=== PATIENT | male | born 1975 | race Caucasian/White ===

== ENCOUNTER 2024-01-07 00:40 | Emergency (ER) | payer OTHER, SELFPAY ==
[2024-01-07] VITALS (10 sets, daily range): BP systolic 184–268; BP diastolic 88–141; BMI 49.4
[2024-01-07] MEDS: ATIVAN 2 MG IV (00:54)
[2024-01-07 00:57] LABS: Glucose - Point of Care 117 mg/dl (70-99)
[2024-01-07 01:01] LABS: % Basophils 0.5 % (0-2); % Eosinophils 0.1 % (0-6); % Immature Granulocytes 0.4 % (0-0.5); % Lymphocytes 6.2 % (20.5-51.1); % Neutrophils 90.8 % (42.2-75.2); Absolute Basophils 0.1 10^3/uL (0-0.2); Absolute Immature Granulocytes 0.1 10^3/uL (0-0.05); Absolute Monocytes 0.3 10^3/uL (0.1-0.6); Absolute Neutrophils 13.9 10^3/uL (1.4-6.5); Hematocrit 44.2 % (39.0-52.0); Hemoglobin 14.9 g/dL (13.0-18.0); Mean Corp Hgb Conc. 33.7 g/dL (33.0-37.0); Mean Corpuscular Hgb 26.5 pg (27.0-31.0); Mean Corpuscular Volume 78.6 fL (80.0-94.0); Nucleated Red Blood Cells % 0 % (-); Platelet Count 379 10^3/uL (130-400); Red Blood Cell Count 5.62 10^6/uL (4.70-6.10); Red Cell Dist. Width 14.7 % (11.5-14.5); White Blood Cell Count 15.3 10^3/uL (4.8-10.8)
[2024-01-07 01:15] LABS: INR 1.05; PT 13.5 Sec (11.4-14.6)
[2024-01-07 01:16] LABS: APTT 43.1 Sec (23.4-35.0)
[2024-01-07 01:17] LABS: ALT (SGPT) 18 U/L (0-50); AST (SGOT) 24 U/L (17-59); Albumin 4.6 g/dl (3.5-5.0); Alkaline Phosphatase 127 U/L (38-126); Blood Urea Nitrogen 14 mg/dl (9-20); Calcium 9.7 mg/dl (8.4-10.2); Carbon Dioxide 30 mmol/L (22-30); Chloride 98 mmol/L (98-107); Estimated Creatinine Clearance > 125 ml/min; Glucose 127 mg/dl (70-99); Potassium 4.1 mmol/L (3.5-5.1); Sodium 135 mmol/L (135-145); Total Bilirubin 0.6 mg/dl (0.2-1.3); eGFR > 60.00
[2024-01-07 01:19] LABS: Alcohol None Detected
--- NOTE | 2024-01-07 01:24 | EDRN ---
Dr. Aguila at stretcher side with patient. 20 mg of etomidate given IVP and 10 mg of vecuronium given IVP. Resp bagging patient at this time.
--- NOTE | 2024-01-07 01:25 | EDRN ---
The patient remains SR on the monitor. The patient was intubated with an 8.0 ET tube at 26 at the lip.
[2024-01-07 01:29] LABS: Troponin I 0.012 ng/ml
--- NOTE | 2024-01-07 01:32 | ED.CVA ---
History of Present Illness
General
Chief Complaint: CVA/TIA Symptoms
Source: patient, spouse (Via telephone) and ambulance crew
Time Seen by Provider: 01/07/24 01:00
Onset of Stroke Symptoms
Onset of symptoms known: Yes
Date of onset of symptoms: 01/06/24
Time of onset of symptoms: 23:30
Date last time pt seen normal: 01/06/24
Time last time pt seen normal: 23:30
Travel History
Have you had any contact with someone who has COVID-19?: Unable to Answer
Do you have any symptoms of coronavirus? Fever > 100 degrees, chills, cough, shortness of breath, sore throat, loss of taste or smell, muscle aches, or headache?: Unable to Answer
History of Present Illness
History of Present Illness:
48-year-old male presents with altered mental status. Prehospital stroke alert from EMS. Unsure if there was trauma involved. He was last seen normal 90 minutes prior to arrival. Patient unable to follow commands. Initial exam showed a downward
right conjugate gaze. Patient was covered in vomitus. He was unable to speak. History is limited due to patient's condition.
Vital signs are stable. Patient not hypoxic
Nursing note reviewed. I agree with nursing documentation up to this point in time.
Home Meds and allergies reviewed.
NUMBER AND COMPLEXITY OF PROBLEMS ADDRESSED AT THE ENCOUNTER
� Chronic conditions affecting care:
� Acute Exacerbation and/or Progression of Chronic Illness:
� Differential Diagnosis includes:
AMOUNT AND/OR COMPLEXITY OF DATA TO BE REVIEWED AND ANALYZED
I performed an independent evaluation of the following and my interpretation is:
EKG: Sinus rhythm rate of [address] and T wave abnormalities. ST depressions in the inferior and lateral leads.
CT:
X-rays:
Ultrasound:
Laboratory Studies: 15.3 white blood cell count
Other:
Review of other/old records: Previous hospital admission 01/06/2022 including discharge summary and medical consultations.
Clinical information was obtained by an independent historian: who is not present at the bedside, but consulted by phone. She states that he has been noncompliant with his hypertensive medications for weeks.
Prescriptions/Medications Considered but not given:
Further testing considered but not performed:
RISK OF COMPLICATIONS AND/OR MORBIDITY OR MORTALITY OF PATIENT MANAGEMENT
Social determinants of health affecting care: Medical noncompliance
Discussion with other providers: Neurosurgery at [facility] [address] neuro ICU
Escalation of care including admission/observation vs risk of discharge considered: Patient intubated and blood pressure is lowered for permissive hypertension
CRITICAL CARE NOTE:
Critical care statement: A total of 55 minutes of critical care time was provided for this patient. This time is separate from time utilized to perform the aforementioned documented procedures. Aggregate critical care time includes only time
during which I was engaged in work directly related to the patient's care, as described above, whether at the bedside or elsewhere in the Emergency Department.
Total Time (exclusive of procedures):55
Update:
Past History
Past History
ED Past Medical History: Other (Chronic back pain, prior substance abuse/opiates as well as methamphetamine, facial cellulitis) and Other (Methadone maintenance)
ED Past Surgical History: Orthopedic (Arthroscopy right knee)
Social History
Tobacco: Smoker
Alcohol: Occasional
Drug: Former user (Opiates as well as methamphetamines)
Personal:
Living: with family
Employment: Employed
Family History
Family History: Other (Noncontributory)
Phy Exam
General Physical Exam
General Presentation: severe distress
General age: appears older than age
General Skin: flushed
General Habitus: debilitated, obese and poor hygiene
General Chronic Disability: other (Chronic lymphedema in the legs)
Eye Exam
Eye Exam: other (Downward conjugate gaze)
Able to obtain acuity?: No
Pupil Exam: Bilateral: pinpoint
Cardiovascular Exam
Cardiovascular Exam: regular rate/rhythm and tachycardia
Pulmonary Exam
Pulmonary Exam: generalized wheezing
Neurological Exam
Neurological Exam: non verbal
NIH Stroke Score
Level of Consciousness: 3 - Totally unresponsive
Mental
Mental Status: unresponsive
Describe Speech: no response
Cranial
Cranial Nerves: intact gag reflex
Musculoskeletal Exam
Musculoskeletal Exam: edema and neuro vasc intact
Skin Exam
Skin Exam: mottled, redness and warmth
Course
Orders/Labs/Results
Orders:
Orders
01/07/24 00:44
Electrocardiogram (*1) Urgent
Reason for Study: Other
Other Reason for Exam: Possible Stroke
CT Head W/o Cont STROKE ALERT Stat
Reason For Exam: pre hospital stroke alert
Bedside Glucose- Treatment ONCE
Cardiac Monitoring- Treatment ONCE
EKG- Treatment ONCE
IV Insert/Care/Rem.- Treatment PRN
Vital Signs As Directed
Frequency: Other
Weight As Directed
Frequency: Once
Comment: ZERO STRETCHER SCALE FOR ACCURATE WEIGHT
O2 Therapy [RESP] Urgent
Titrate/Wean O2 to maintain O2 sat greater than (%): 93
Special Instructions: MAINTAIN CONTINUOUS O2 SATS > OR = 93%
01/07/24 00:52
Lorazepam [Ativan] 2 mg .ROUTE .STK-MED ONE
Lorazepam [Ativan] 2 mg IV NOW STA
01/07/24 00:54
Alcohol Urgent
Complete Blood Count/With Diff Urgent
Comprehensive Metabolic Panel Urgent
PTT Urgent
Prothrombin Time Urgent
Troponin I Urgent
01/07/24 00:56
Add On- LAB Urgent
Tests Added?: alcohol
01/07/24 01:09
Labetalol HCl [Trandate] 20 mg IV [id number] PRN
01/07/24 01:11
Type+Screen Urgent
01/07/24 01:30
Portable Chest Xray [CR Chest Portable - 1 View] Stat
Comment:
Reason For Exam: post intubation.
Reason Study Needs to be Portable: Patient Unstable
01/07/24 01:36
Labetalol HCl [Trandate] 400 mg Empty Viaflex Container 100 ml [Viaflex Empty Container] 0 ml IV NOW
Initial dose in mg/min, then titrate:: 2
Titrate to keep:: Other
Titrate to keep other:: BP < 185/110
Titrate by mg/min:: 0.5 mg/min
Frequency of titrations (minutes):: 15
Additional Titration Instructions:: Bolus with 20 mg IV every 15 minutes PRN dose increase
Maximum dose in mg/min:: 4
Begin to taper infusion when:: Remained at goal for 4hrs
Taper by mg/min:: 0.5 - 1 mg/min
Frequency of taper (minutes) if patient maintains goal:: 30
Taper to off?: Yes
If infusion off & no longer maintaining goal:: Contact Provider
Abnormal Lab Results
01/07/24 01/07/24
00:54 00:55
WBC 15.3 H 10^3/uL
(4.8-10.8)
MCV 78.6 L fL
(80.0-94.0)
MCH 26.5 L pg
(27.0-31.0)
RDW 14.7 H %
(11.5-14.5)
Abs Immat Gran (auto) 0.1 H 10^3/uL
(0-0.05)
Absolute Neuts (auto) 13.9 H 10^3/uL
(1.4-6.5)
Absolute Lymphs (auto) 1.0 L 10^3/uL
(1.2-3.4)
Neutrophils % 90.8 H %
(42.2-75.2)
Lymphocytes % 6.2 L %
(20.5-51.1)
APTT 43.1 H Sec
(23.4-35.0)
Glucose 127 H mg/dl
(70-99)
Alkaline Phosphatase 127 H U/L
(38-126)
Total Protein 9.0 H g/dl
(6.3-8.2)
POC Glucose 117 H mg/dl
(70-99)
01/07/24 00:54
01/07/24 00:54
Vital Signs
Initial and Last Documented VS:
Initial Vital Signs
BP
205/126
01/07/24 01:04
Last Documented Vital Signs
Temp Pulse Resp BP Pulse Ox
97.9 F 86 19 184/112 99
01/07/24 01:05 01/07/24 02:00 01/07/24 02:00 01/07/24 01:55 01/07/24 01:55
Procedures
Intubations
Procedure completed by: Myself
Method of Intubation: glidescope
Tube size (cm): 8.0
Placement confirmed by: auscutation, capnography and placement corrected (Pulled back 1 mm)
Breath sounds after intubation: equal
Intubation complications: no complications
*Radiology
Radiology exam reviewed: radiology read reviewed
*Pulse Oximetry
Patient hypoxic: no
*Critical Care Note
Total Time (30-74mins, 75-104mins- exclusive of procedures): 55
Patient Management
Social determinants of health affecting care: Living situation
Discussion with other providers: Sports Athletic Trainer (Neurosurgery at [facility] [address]) and Other
ED Attending Note
-
Portions of this chart may have been created with voice recognition software.� Occasional wrong word or��sound alike� substitutions may have occurred due to the inherent limitations of voice recognition software.
Discharge Plan
Departure
Patient Disposition: Acute Care Hospital
Date of Disposition: 01/07/24
Time of Disposition: 01:44
Condition: Critical
Discharge Problem:
Left thalamic bleed, Hypertension, Midline shift of brain due to hematoma
Prescriptions:
No Action
methadone [Methadose] 100 MG/10 ML concentrate
130 mg PO DAILY
Patient Comments:
01/06/22 CONFIRMED WITH [facility] AT [phone] [facility]
ascorbic acid (vitamin C) [Vitamin C] 500 MG tablet
500 mg PO DAILY
multivitamin with folic acid [Tab-A-Cecilia] 1 TABLET tablet
1 tab PO DAILY
Vitamin A
1 cap PO DAILY
losartan 50 MG tablet
50 mg PO DAILY Qty: 30 0RF
acetaminophen 325 MG tablet
650 mg PO Q4HPRN PRN (Reason: mild pain or temp > 100.4 F) 0RF
carvedilol 12.5 MG tablet
25 mg PO BID Qty: 60 0RF
miconazole nitrate [Miconazorb AF] 1 APPLIC powder
1 applic topical BID Qty: 1 0RF
Dakin's Solution 473 ML solution
1 applic topical DAILY Qty: 1 0RF
white petrolatum [Hydrophor] 1 APPLIC ointment
1 applic topical DAILY Qty: 1 0RF
cephalexin 500 MG capsule
1,000 mg PO QID Qty: 112 0RF
Rx Instructions:
take 2 tabs (1000mg) 4x daily x 2 weeks
Referrals:
UNKNOWN - PT NOT,INTERVIEWE [Family Provider] -
Hospital Transfer
Other hospital: [facility] neuro ICU
I certify that the patient requires transfer: Yes
Discussed case with accepting physician: Dr. Arin Stokes, Dr. Huynh
Reason for transfer: higher level of care, medical necessity and availability of service
Interventions
Interventions:
*Risk Screen - Suicide Last Done: 01/07/24 01:09
*General Assessment Last Done: 01/07/24 00:48
*Neglect/Abuse Screening Last Done: 01/07/24 01:03
ED- Fall Risk Assessment Last Done: 01/07/24 01:13
*ED COVID-19 Vaccine History Last Done: 01/07/24 00:48
*Nursing Disposition Last Done: 01/07/24 02:27
ED- Pulmonary Assessment Last Done: 01/07/24 01:13
ED- Neurological Assessment Last Done: 01/07/24 01:13
ED- Cardiac Assessment Last Done: 01/07/24 01:13
ED Swallowing Screen Last Done: 01/07/24 01:07
Discharge Date and Time
Discharge Date/Time: 01/07/24 02:29
Print Language: TUVALUAN
[2024-01-07] MEDS: TRANDATE 20 MG IV (01:36)
[2024-01-07] MEDS: TRANDATE 80 MG IV (01:45)
== END 2024-01-07 02:29 | disposition short-term general hospital (02) ==
LOC: EMR 00:40
PROVIDERS: EMERGENCY PHYSICIAN Student in an Organized Health Care Education/Training Program
DX: S06.37AA Contusion, laceration, and hemorrhage of cerebellum with loss of consciousness status unknown, initial encounter (principal); G93.89 Other specified disorders of brain; X58.XXXA Exposure to other specified factors, initial encounter; I10 Essential (primary) hypertension; I89.0 Lymphedema, not elsewhere classified; G89.29 Other chronic pain; M54.9 Dorsalgia, unspecified; F19.10 Other psychoactive substance abuse, uncomplicated; Z91.148 Patient's other noncompliance with medication regimen for other reason; E66.9 Obesity, unspecified; F17.200 Nicotine dependence, unspecified, uncomplicated
CPT/HCPCS: 99285; 31500; 96365; 96375; 70450; 71045; 80053; 82077; 82962; 84484; 85025; 85610; 85730; 86850; 86900; 86901; 93005

== ENCOUNTER 2025-02-20 18:12 | Inpatient (IN) | payer OTHER, SELFPAY ==
[2025-02-20] VITALS (10 sets, daily range): BP systolic 147–214; BP diastolic 81–110; BMI 40.5; BMI 39.0
--- NOTE | 2025-02-20 14:33 | EDRN ---
pt was triage by Nash Alfred
--- NOTE | 2025-02-20 15:32 | ED.GENMED ---
History of Present Illness
General
Chief Complaint: Withdrawal Symptoms
Source: patient
Exam Limitations: clinical condition
Time Seen by Provider: 02/20/25 15:19
History of Present Illness
History of Present Illness:
50-year-old male presents with as he describes an heroin withdrawal. He stopped using yesterday. Snorts heroin daily. Uses a bag. Decided to stop yesterday. Describing symptoms of diarrhea, nausea vomiting incontinence agitation. Denies any
other acute symptoms. Patient states he took 2 strips of Suboxone this morning with symptoms worse after that.
Past History
Past History
ED Past Medical History: CVA (Thalamic bleed), Other (Chronic back pain, prior substance abuse/opiates as well as methamphetamine, facial cellulitis) and Other (Methadone maintenance)
ED Past Surgical History: Orthopedic (Arthroscopy right knee) and Other (Intracerebral shunt)
Social History
Tobacco: Smoker
Alcohol: Occasional
Drug: Former user (Opiates as well as methamphetamines)
Personal:
Living: with family
Employment: Employed
Family History
Family History: Other (Noncontributory)
Review of Systems
Review of Systems
All Other Systems: Not applicable
Respiratory: Reports no symptoms
Cardiac: Reports no symptoms
Phy Exam
Physical Exam
Physical Exam:
GENERAL: Chronically ill-appearing. Old for stated age. Mildly lethargic but answering questions. Malodorous.
EYE: Orbits normal.
NECK: Supple, no significant adenopathy.
ENT: Pharynx without erythema
CARDIAC: Regular rate and rhythm without any obvious murmurs.
LUNGS: Clear breath sounds,normal
ABDOMEN: Soft, without focal tenderness or distention
NEUROLOGICAL: Alert and oriented , somewhat slow to answer questions. Mild weakness to the right arm. Slight right facial droop. significant weakness of the right leg. This apparently is old.
SKIN: Warm and dry
MUSCULOSKELETAL: Significant bilateral lower extremity edema with chronic keratosis and hyperpigmentation changes
PSYCH: Normal and appropriate interaction.
Course
Orders/Labs/Results
Orders:
Orders
02/20/25 Breakfast
Cholesterol Lowering
At Your Request: Full Participation
Cholesterol Lowering: Sodium, 2 Gram
02/20/25 15:28
CT Head W/o Iv Contrast Urgent
Comment:
Reason For Exam: Change in mental status/history of inferior cerebr
Cardiac Monitoring- Treatment ONCE
IV Insert/Care/Rem.- Treatment PRN
Urinalysis Reflex To Culture Urgent
Urine Drug Abuse Screen Urgent
0.9% Sodium Chloride 500 ml [Nss] 500 ml IV BOLUS
Pulse Ox/cont/shift [RESP] Stat
Quantity: 1
02/20/25 15:29
Electrocardiogram (*1) Stat
Reason for Study: Other
Other Reason for Exam: overdose
EKG- Treatment ONCE
02/20/25 15:54
Acetaminophen Urgent
Alcohol Urgent
Complete Blood Count/With Diff Urgent
Comprehensive Metabolic Panel Urgent
Magnesium Urgent
02/20/25 16:44
Clonidine [Catapres] 0.2 mg PO NOW STA
02/20/25 16:46
Add On- LAB Urgent
Tests Added?: magnesium
02/20/25 17:44
Admit/Transfer Patient As Directed
Co-Sign Provider:
Level of Care: Inpatient admission
Assign to:: Telemetry
Physician / Group: [email or web address]
Diagnosis: opoid withdrawal
Reason for Telemetry: Other
Other Reason for Telemetry: opoid withdrawl
Date to Stop Telemetry: 02/22/25
Time to Stop Telemetry: 11:00
Reason for Hospitalization: opoid withdrawal
Expected length of stay greater than two midnights?: Yes
ELOS- Estimated Length of Stay in days: 3
I certify the patient meets the requirements for IP care: Yes
PRN Pain Medication Management As Directed
May give lesser potent ordered pain med per pt: Yes
preference::
Protocol:: Medication orders for pain may be administered in a
manner that supports deferring to patient preference
when the pt is:
- Requesting an ordered lesser potent pain medication.
Least to most potent pain medications are defined
as: acetaminophen < NSAID < tramadol < opioids
(morphine, oxycodone, hydromorphone).
- Requesting a lesser dose of the same medication IF
ORDERED.
- Requesting a less intrusive route of administration
if both routes are prescribed by the provider (PO <
IV).
02/20/25 17:45
Code Status As Directed
Resuscitation Status: Full Code
02/20/25 19:24
0.9% Sodium Chloride 1000 ml [Nss] 1,000 ml IV 120 mls/hr
Bisacodyl [Dulcolax] 10 mg RECTAL [id number] PRN
Buprenorphine [Subutex] 8 mg SL PRN PRN
Diphenoxylate / Atropine [Lomotil] 1 tablet PO Q4HPRN PRN
Docusate W/Senna [Senokot-S] 1 tablet PO BIDPRN PRN
Enoxaparin Sodium [Lovenox] 40 mg SC QPM
HydrALAZINE [Apresoline] 10 mg IV Q6HPRN PRN
Polyethylene Glycol Powder [Miralax] 17 grams PO DAILYPRN PRN
Tizanidine [Zanaflex] 2 mg PO Q6HPRN PRN
02/20/25 19:24
Electrocardiogram (*1) Routine
Reason for Study: QTc Monitoring
Comment: if not already done in ED
Case Management Consult ONCE
Case Management Consult: Other
Comment: opioid withdrawal
Activity As Directed
Activity Level: As Tolerated
Clinical Opioid Withdrawal Scale (COWS) Q4
Frequency:: now, Q4 hours x 24 hours, then PRN based on symptoms
Vital Signs As Directed
Frequency: Per unit guidelines
DX Deep Vein Thrombosis Video Routine
02/20/25 20:00
Carvedilol [Coreg] 12.5 mg PO BID
02/20/25 21:06
Fentanyl, Urine Urgent
02/21/25 00:00
Acetaminophen [Tylenol] 1,000 mg PO Q8
02/21/25 06:00
Complete Blood Count/No Diff IN AM
[id number] IN AM
02/21/25 08:00
Buprenorphine [Subutex] 4 mg SL ONCE PRN PRN
Buprenorphine [Subutex] See Dose Instructions SL ONCE ONE
Clonidine [Catapres] 0.1 mg PO DAILY
Losartan [Cozaar] 50 mg PO DAILY
02/22/25 06:00
Complete Blood Count/No Diff IN AM
02/22/25 08:00
Buprenorphine [Subutex] See Dose Instructions SL DAILY
02/22/25 11:00
DC Protocol for Telemetry ONCE
02/23/25 06:00
Complete Blood Count/No Diff IN AM
Abnormal Lab Results
02/20/25
15:54
WBC 13.3 H 10^3/uL
(4.8-10.8)
Abs Immat Gran (auto) 0.1 H 10^3/uL
(0-0.05)
Absolute Neuts (auto) 12.1 H 10^3/uL
(1.4-6.5)
Absolute Lymphs (auto) 0.8 L 10^3/uL
(1.2-3.4)
Neutrophils % 90.7 H %
(42.2-75.2)
Lymphocytes % 5.7 L %
(20.5-51.1)
Glucose 129 H mg/dl
(70-99)
Total Protein 8.9 H g/dl
(6.3-8.2)
Acetaminophen < 10 L ug/ml
(10-30)
02/20/25 15:54
02/20/25 15:54
Vital Signs
Initial and Last Documented VS:
Initial Vital Signs
Temp Pulse Resp BP Pulse Ox
98.1 F 90 16 184/95 95
02/20/25 13:31 02/20/25 13:31 02/20/25 13:31 02/20/25 13:31 02/20/25 13:31
Last Documented Vital Signs
Temp Pulse Resp BP Pulse Ox
98.2 F 88 20 147/81 93
02/20/25 19:57 02/20/25 19:57 02/20/25 19:57 02/20/25 19:57 02/20/25 19:57
MDM/Problems Addressed
Differential Diagnosis Includes:
I suspect his symptoms are withdrawal related. However I do not want to assume that. Will check labs CT of the head workup in progress.
*Radiology
Radiology exam reviewed: radiology read reviewed (Head CT stable)
*Pulse Oximetry
Patient hypoxic: no
*EKG
Interpreted by ED Provider?: Yes
Interpretation: abnormal
Comparison EKG: changes noted
Heart Rate: 89
Rate: normal
Rhythm: sinus
[place]: normal axis
Interval: long QT
QRS Pattern: normal QRS
Ischemia: non-specific ST changes
*[employer] Interpretation
Rate: normal
Interpretation: normal
Heart Rate: 90
Rhythm: sinus
*Critical Care Note
Total Time (30-74mins, 75-104mins- exclusive of procedures): Not Applicable
Data Reviewed
Review of Other/Old Records Reveals: Labs, Records and Testing
Update Note
Update Note:
Patient is in withdrawal and Suboxone on precipitated withdrawal. Will get on a monitor recheck vital signs. Check QT interval prior to medications. Will need admission for further care
Multiple discussions with pharmacy concerning management. We have to stay away from QT prolonging agents. We will give clonidine for the withdrawal symptoms and elevated blood pressure feel okay with the beta-leo. Will use opioids if needed.
ED Attending Note
-
Portions of this chart may have been created with voice recognition software.� Occasional wrong word or��sound alike� substitutions may have occurred due to the inherent limitations of voice recognition software.
Discharge Plan
Departure
Patient Disposition: Admit
Date of Disposition: 02/20/25
Time of Disposition: 17:33
Presentation/result/management discussed w/ accepting MD/DO: Hospitalist
Discharge Problem:
Opioid withdrawal, Suboxone precipitated withdrawal, Hypertension, History of intracerebral bleed/shunt
Interventions
Interventions:
*Risk Screen - Suicide Last Done: 02/20/25 18:33
*General Assessment Last Done: 02/20/25 18:33
*Neglect/Abuse Screening Last Done: 02/20/25 18:33
*ED- Fall Risk Assessment Last Done: 02/20/25 18:33
*ED COVID-19 Vaccine History Last Done: 02/20/25 16:07
*Nursing Disposition Last Done: 02/20/25 19:24
ED- Neurological Assessment Last Done: 02/20/25 16:05
ED-Psychological Assessment Last Done: 02/20/25 16:07
Discharge Date and Time
Discharge Date/Time: 02/20/25 19:25
[2025-02-20] MEDS: NSS 500 IV (15:57)
[2025-02-20 16:01] LABS: % Basophils 0.5 % (0-2); % Immature Granulocytes 0.5 % (0-0.5); % Lymphocytes 5.7 % (20.5-51.1); % Monocytes 2.6 % (1.7-9.3); % Neutrophils 90.7 % (42.2-75.2); Absolute Basophils 0.1 10^3/uL (0-0.2); Absolute Immature Granulocytes 0.1 10^3/uL (0-0.05); Absolute Lymphocytes 0.8 10^3/uL (1.2-3.4); Absolute Monocytes 0.4 10^3/uL (0.1-0.6); Absolute Neutrophils 12.1 10^3/uL (1.4-6.5); Hematocrit 44.9 % (39.0-52.0); Hemoglobin 14.8 g/dL (13.0-18.0); Mean Corpuscular Hgb 27.4 pg (27.0-31.0); Mean Platelet Volume 9.3 fL (7.4-10.4); Nucleated Red Blood Cells % 0 % (-); Platelet Count 394 10^3/uL (130-400); Red Blood Cell Count 5.41 10^6/uL (4.70-6.10); Red Cell Dist. Width 14.3 % (11.5-14.5); White Blood Cell Count 13.3 10^3/uL (4.8-10.8)
[2025-02-20 16:17] LABS: ALT (SGPT) 21 U/L (0-50); AST (SGOT) 23 U/L (17-59); Albumin 4.8 g/dl (3.5-5.0); Alkaline Phosphatase 107 U/L (38-126); Blood Urea Nitrogen 14 mg/dl (9-20); Calcium 9.7 mg/dl (8.4-10.2); Carbon Dioxide 29 mmol/L (22-30); Chloride 103 mmol/L (98-107); Estimated Creatinine Clearance > 125 ml/min; Glucose 129 mg/dl (70-99); Potassium 3.7 mmol/L (3.5-5.1); Sodium 139 mmol/L (135-145); Total Protein 8.9 g/dl (6.3-8.2); eGFR > 60.00
[2025-02-20 16:18] LABS: Acetaminophen < 10 ug/ml (10-30)
[2025-02-20 16:19] LABS: Alcohol None Detected
--- NOTE | 2025-02-20 16:33 | PHANOTE ---
med rec note- called [facility] AT [phone] methadone clinic, patient claims he does not got here anymore, left message with after hours just incase patient was confused
[2025-02-20] MEDS: CATAPRES 0.2 MG PO (16:52)
--- NOTE | 2025-02-20 17:34 | HPS.HSE ---
Family Physician
-
Family Physician: Phong Ta
Chief Complaint
-
diarrhea, vomitting
History of Present Illness
50-year-old male with past medical history for CVA, chronic back pain, substance abuse, cellulitis presents with as he describes an heroin withdrawal. He stopped using yesterday. Snorts heroin daily. Uses a bag. Decided to stop yesterday.
Describing symptoms of diarrhea, nausea vomiting incontinence agitation. Denies any other acute symptoms. Patient states he took 2 strips of Suboxone this morning with symptoms worse after that. denied BURRIS, dizzy or syncope.denied fever, chills,
chest pain, sob. denied dysuria or hematuria.
upon arrival he was noted hypertensive.admitting for further management
Medical History
Past Medical History
Past Medical History: Reports Other
Additional Past Medical History:
Attention deficit with hyperactivity disorder
Migraine
ADHD
Hypertension
Bilateral ankle and wrist fractures
Past Surgical History: Reports Other
Additional Past Surgical History:
Bursitis surgery
Social History
Tobacco: Non-smoker
Alcohol: None
Drug: Other (heroine)
Family History
Family History: Not pertinent
Allergies / Home Medications
Allergies reflects when Allergies were last updated in [employer].
Home Medications with original date entered in [employer]
Allergy/Medication List:
Allergies
Allergy/AdvReac Type Severity Reaction Status Date / Time
clindamycin Allergy Unknown Verified 02/20/25 13:33
Corticosteroids Allergy Unknown Verified 02/20/25 13:33
(Glucocorticoids)
diphenhydramine HCl Allergy Unknown Verified 02/20/25 13:33
[From Benadryl]
hydroxyzine [Hydroxyzine] Allergy Unknown Verified 02/20/25 13:33
peach Allergy Tongue Verified 02/20/25 13:33
Swelling
Penicillins Allergy Shortness Verified 02/20/25 13:33
of Breath;
tolerated
cefepime
sulfamethoxazole Allergy Unknown Verified 02/20/25 13:33
[From Bactrim]
tramadol Allergy 'throat Verified 02/20/25 13:33
swells up'
trimethoprim [From Bactrim] Allergy Unknown Verified 02/20/25 13:33
hydrocodone bitartrate AdvReac vomiting Verified 02/20/25 17:22
[From Vicodin]
Iodinated Contrast Media AdvReac Vomiting Verified 02/20/25 17:22
Home Medications
buprenorphine 8 mg-naloxone 2 mg sublingual film (Suboxone) 1 film buccal DIRECTED 02/20/25
carvedilol 12.5 mg tablet (Coreg) 12.5 mg PO BID 02/20/25
clonidine HCl 0.1 mg tablet 0.1 mg PO DAILY 02/20/25
losartan 50 mg tablet 50 mg PO DAILY 02/20/25
Review of Systems
-
Constitutional: Reports No Symptoms
EENT: Reports No Symptoms
Respiratory: Reports No Symptoms
Cardiac: Reports No Symptoms
Abdomen/GI: Reports Vomiting and Diarrhea
: Reports No Symptoms
Musculoskeletal: Reports No Symptoms
Skin: Reports No Symptoms
Neurological: Reports No Symptoms
Endocrine: Reports No Symptoms
Hematologic/Lymphatic: Reports No Symptoms
Psych: Reports No Symptoms
Physical Exam
Vital Signs
Vital Signs
Temp Pulse Resp BP Pulse Ox
98.3 F 88 29 206/111 93
02/20/25 16:21 02/20/25 16:52 02/20/25 16:01 02/20/25 16:52 02/20/25 16:01
Physical Exam
General: Well Developed, Well Nourished and No Apparent Distress
HEENT: NormoCephalic, Moist mucous membranes and Atraumatic
Respiratory: Clear
Cardiac: S1/S2 and Regular Rhythm; No Murmur or Rub
GI: Soft, Non Tender, Non Distended and Normal Bowel Sounds; No Organomegaly
Rectal: Deferred by Provider
Musculoskeletal: No Clubbing, No Cyanosis and No Edema
Skin: No Rash
Neuro: AO x 3 and Nonfocal/grossly intact
Psych: Calm
Laboratory Results
-
02/20/25 15:54
02/20/25 15:54
Laboratory Results
Total Bilirubin 1.0 mg/dl (0.2-1.3) 02/20/25 15:54
AST 23 U/L (17-59) 02/20/25 15:54
ALT 21 U/L (0-50) 02/20/25 15:54
Alkaline Phosphatase 107 U/L (38-126) 02/20/25 15:54
Data Reviewed
-
Lab Data: Labs Reviewed by me
Impression/Plan
-
# Opioid withdrawal
-opioid withdrawal protocol initiated
# Chronic leukocytosis
- WBC 13..3
- Patient is afebrile
- Continue to monitor
# Hypertensive urgency
- Blood pressure elevated in the ER
- Hydralazine added
-coreg continued with hold parameter
-losartan and clonidine continued
#DVT prophylaxis
-lovenox
#CODE status
-full code
[2025-02-20 17:35] LABS: Magnesium 1.7 mg/dl (1.6-2.3)
--- NOTE | 2025-02-20 17:45 | W.PN.UPDATE ---
Update Note
Progress Note Update
This note serves as an addendum to the H&P by border police LINDA Ceci ACEVEDO
HPI
50M HX CVA, chronic back pain, substance abuse, cellulitis seen at ER for reports heroin withdrawal.
- Last use of Heroine using yesterday.
- Snorts heroin daily. Uses a bag.
- Decided to stop yesterday.
- Describing symptoms of diarrhea, nausea vomiting incontinence agitation.
- Patient states he took 2 strips of Suboxone this morning with symptoms worse after that.
He was hypertensive upon arrival
ROS
- denies any other acute symptoms.
- denied BURRIS, dizzy or syncope.denied fever, chills, chest pain, sob. denied dysuria or hematuria.
Selected VS
02/20/25
16:01 02/20/25
16:21 02/20/25
16:52
Temp 98.3 F
Pulse 88
Resp Rate 29
Blood pressure 214/105 206/111
SaO2 93
PE
Gen:
HEENT:
Neck:
Lungs:
Cor:
Abdomen:
NARROW FABRICS WEAVER:
MS:
Psych:
Labs
02/20/25
15:54
WBC 13.3 H
Creatinine 0.7
eGFR > 60.00
AST 23
ALT 21
Alkaline Phosphatase 107
Acetaminophen < 10 L
Alcohol, Quantitative None detected
Pending UDS
HCT
Ventricular shunt is present.
EKG
NORMAL SINUS RHYTHM
PROLONGED QT
ABNORMAL ECG
WHEN COMPARED WITH ECG OF 07-JAN-2024 01:08,
NONSPECIFIC T WAVE ABNORMALITY NO LONGER EVIDENT IN INFERIOR LEADS
T WAVE INVERSION NO LONGER EVIDENT IN LATERAL LEADS
Confirmed by LONDON RUSSELL MD ([id number]) on 02/20/2025 4:37:08 PM
ASSESSMENT & PLAN
Pending Rx reconciliation
Pending UDS
HCT
Ventricular shunt is present.
EKG
NORMAL SINUS RHYTHM
PROLONGED QT
ABNORMAL ECG
WHEN COMPARED WITH ECG OF 07-JAN-2024 01:08,
NONSPECIFIC T WAVE ABNORMALITY NO LONGER EVIDENT IN INFERIOR LEADS
T WAVE INVERSION NO LONGER EVIDENT IN LATERAL LEADS
Confirmed by LONDON RUSSELL MD ([id number]) on 02/20/2025 4:37:08 PM
ASSESSMENT & PLAN
Acute Opiates withdrawal syndrome with clinical autonomic hyperarousal features; severe
- agree with opioid withdrawal protocol
- c/w all supportive care with PRN Lomotril PRN, IV NS and anti emetics
- observe VSS
- Fall precaution
- TLM monitor
Hypertensive urgency due to Acute Opiates withdrawal syndrome
- IV Hydralazine added
- GOLD CUTTER Coreg continued with hold parameter
- GOLD CUTTER losartan and clonidine continued
- Trend BP
Chronic leukocytosis suspect not infectious
leukemoid reaction
- WBC 13..3
- afebrile
- Observe T curve and trend WC
DVT Px: LMWH
Code: Full
IP TLM
[2025-02-20] MEDS: NSS 1000 IV (19:49)
[2025-02-20] MEDS: LOVENOX 40 MG SC (19:49)
[2025-02-20] MEDS: COREG 12.5 MG PO (19:56)
--- NOTE | 2025-02-20 20:04 | PTCARENOTE ---
Addendum entered by Jyoti Loredo RN 02/20/25 20:11:
Patient was incontinent of large amount urine when received.
Original Note:
Received patient from ER. stable vitals. unable to gather admission information as patient is drowsy, responds to voice and falling asleep during conversation. POC reviewed with patient
[2025-02-21] VITALS (7 sets, daily range): BP systolic 136–188; BP diastolic 70–112
[2025-02-21] MEDS: TYLENOL 1000 MG PO ×3 (00:38→16:35)
[2025-02-21] MEDS: NSS 1000 IV (03:06)
[2025-02-21 03:45] LABS: Urine Albumin 3+ (Neg - Trace); Urine Bilirubin Negative (Negative); Urine Character Clear (Clear); Urine Color Amber; Urine Glucose Negative (Negative); Urine Ketone Negative (Negative); Urine Leukocyte Negative (Negative); Urine Nitrite Negative (Negative); Urine Occult Blood 4+ (Negative); Urine Specific Gravity 1.015 (<1.030); Urine Urobilinogen Negative (Neg - 1+); Urine pH 6.5 (5.0-9.0)
[2025-02-21 04:04] LABS: Amphetamines Negative (Negative); Barbiturates Negative (Negative); Benzodiazepines Negative (Negative); Buprenorphine Positive (Negative); Cocaine Negative (Negative); Marijuana Negative (Negative); Methadone Negative (Negative); Methamphetamines Negative (Negative); Opiates Negative (Negative); Phencyclidine Negative (Negative); Tricyclic Antidepressants Negative (Negative)
[2025-02-21 04:28] LABS: Fentanyl, Urine Positive (Negative)
[2025-02-21 04:34] LABS: Urine Bacteria Few (Negative); Urine Red Blood Cell 70-80 /HPF (0-2)
[2025-02-21 06:18] LABS: Hematocrit 40.8 % (39.0-52.0); Hemoglobin 13.6 g/dL (13.0-18.0); Mean Corp Hgb Conc. 33.3 g/dL (33.0-37.0); Mean Corpuscular Hgb 27.3 pg (27.0-31.0); Mean Corpuscular Volume 81.9 fL (80.0-94.0); Mean Platelet Volume 9.6 fL (7.4-10.4); Platelet Count 363 10^3/uL (130-400); Red Blood Cell Count 4.98 10^6/uL (4.70-6.10); Red Cell Dist. Width 14.3 % (11.5-14.5)
--- NOTE | 2025-02-21 06:25 | PTCARENOTE ---
Patient started to scream/curse and c/o vomiting. Patient asking for Methadone. Explained to the patient that there is no order for methadone. Administered Subutex as ordered to help with withdrawal symptoms. After placed under the tongue, patient
immediately spit it out and demanding for methadone. Josep MACDONALD made aware. New order for Lorazepam IV.
[2025-02-21] MEDS: ATIVAN 2 MG IV (06:29)
[2025-02-21] MEDS: FLUSH (NSS) 1 FLUSH IV (06:29)
[2025-02-21 06:51] LABS: ALT (SGPT) 17 U/L (0-50); AST (SGOT) 20 U/L (17-59); Albumin 4.2 g/dl (3.5-5.0); Alkaline Phosphatase 86 U/L (38-126); Direct Bilirubin 0.2 mg/dl (0.0-0.4); Total Bilirubin 1.2 mg/dl (0.2-1.3); Total Protein 7.5 g/dl (6.3-8.2)
[2025-02-21] MEDS: CATAPRES 0.1 MG PO (08:44)
[2025-02-21] MEDS: COZAAR 50 MG PO (08:45)
[2025-02-21] MEDS: COREG 12.5 MG PO ×2 (08:45→20:04)
--- NOTE | 2025-02-21 11:31 | CM ---
CM following re: discharge planning.
Reviewed pt's chart, met with pt.
Pt is a 50 year old male, admitted with primary dx of Opioid withdrawal. PMH includes: CVA, chronic back pain, substance abuse, cellulitis.
Pt reports he lives with spouse and 5 children 1SH, 3 steps to enter, has 5 children. 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 Per RN, she spoke to pt's mother and she confirmed that her son lives with girlfriend and they both do not
have custody on their children. Mother stated she is giving her son (the pt) money weekly to help him survive.
Pt stated he is on Suboxone and getting Suboxone not from the clinic. Pt stated his PCP prescribes Suboxone.
Pt strongly declined meeting with [facility] team. Substance abuse offered and provided even pt expressed no motivation, was very reluctant to participate in the interview. CM will re-visit the pt with the hope that pt expressed an interest in getting
help with his substance addiction.
PCP: Phong Ta
Pharmacy: [facility]
D/C plan: home with anticipated no needs.
CM will follow with discharge plan updates as hospitalization progresses
--- NOTE | 2025-02-21 11:44 | W.PN.HOSP.TC ---
Today's Communication/Plan
-
IV antibiotics
CAT scan of the abdomen pelvis
Microdosing protocol
Wound care evaluation
Assessment / Plan
Assessment / Plan
50-year-old male with diarrhea, nausea vomiting incontinence agitation. BP was elevated in the ER. Snorts heroin daily 1 bag. Stopped on 02/19/2025. Unclear if he was discharged from a Suboxone clinic because he was also using medicines along
with the Suboxone. Patient stated that he took Suboxone left from before. Went through withdrawal. He and his significant other live with his 84-year-old mother. He has 5 children but does not have custody.-
Head CT 02/20/2025-ventricular shunt
Patient was laying on his side and would not answer all the questions appropriately. He answered some. He will not turn for me to examine him properly. Not interested in conversation
Chest: CTA B/L
Abdomen: Soft, NT / Bowel sounds present
Extremities: Chronic skin thickening bilateral with skin. Left leg with infection
# Cellulitis left lower extremity
Has tolerated cefepime in the past
Start ceftriaxone
Wound care has been consulted
# Hypertensive urgency
Continue Coreg, losartan, clonidine
Possibly secondary to drug withdrawal
As needed hydralazine
# Opiate abuse with withdrawal
COWS score to be followed
[facility] referral patient refused now he may need someone to follow-up in the community to enroll him to a Suboxone clinic.
Patient is agreeable to start micro dosing protocol instead of the traditional which will decrease the symptoms.
I have talked with pharmacy and ordered it
# Microscopic hematuria-check CT scan of the abdomen and pelvis with persisting hematuria and abnormality in the ureter in the past.
# History of CVA
# Leukocytosis- elevated since 2008 labs here- Needs Heme eval as OP
# Chronic back pain
# Morbid obesity with a BMI of 39
# History of nephrolithiasis
# Possible sleep apnea-needs outpatient study
# ADHD
# Hepatic steatosis per prior imaging
# Active smoker-cessation counseling
# DVT prophylaxis-Lovenox
# Full code
Discussed with nursing
Discussed with wound care at bedside
Discussed with case management
D/W Pharmacy
Time spent over 50 minutes
Part of this note was created using voice recognition system. Occasional wrong word or��sound alike� substitutions may have inadvertently occurred due to the inherent limitations of voice recognition software. If noted kindly bring it to my
attention for correction.
Anticipated Discharge: > 48 hours
Subjective/Interval History
-
Date of Service: February 21, 2025
Objective Data
-
Labs:
Laboratory Results
02/21/25
05:24
WBC 11.0 H
Hgb 13.6
Hct 40.8
Plt Count 363
Total Bilirubin 1.2
AST 20
ALT 17
Alkaline Phosphatase 86
Vital Signs:
Vital Signs
Temp Pulse Resp BP Pulse Ox
99.8 F 73 18 165/99 94
02/21/25 11:17 02/21/25 11:17 02/21/25 11:17 02/21/25 11:17 02/21/25 11:17
I&O
02/20/25 02/21/25 02/22/25
06:59 06:59 06:59
Intake Total 1200 / 1200 220 / 220
Output Total 500 / 500 300 / 300
Balance 700 / 700 -80 / -80
[2025-02-21] MEDS: DESENEX/MITRAZOL/ZEASORB 1 APPLIC TOPICAL (11:54)
--- NOTE | 2025-02-21 11:56 | PTCARENOTE ---
Updated pt's Mother, Jackie, via phone like patient asked. I also added her to contact list, as he is living with her at the moment. Relayed information to case management and MD about living situation for discharge planing and care coordination.
Pt is refusing Subutex and CT scan of abdomen. He states his abdominal pain is from 'not taking methadone'.
--- NOTE | 2025-02-21 12:04 | WOUNDNOTE ---
L LATERAL LOWER LEG
--- NOTE | 2025-02-21 12:04 | WOUNDNOTE ---
L MEDIAL POSTERIOR LEG
--- NOTE | 2025-02-21 12:05 | WOUNDNOTE ---
R MEDIAL LOWER LEG
--- NOTE | 2025-02-21 12:08 | WOUNDNOTE ---
[facility] RN note: Patient admitted with Opioid withdrawal.
See H&P for complete history.
PMH: UTI, renal stone, vertebral fracture, R knee surgery for bursitis, narcotic pain dependence, drug abuse-heroin, morbid obesity, HTN and lower leg weeping with lymphedema.
Wound Location and type/assessment: Patient known to service, last seen 01/06/22 for weeping lower legs and Lymphedema. Compared to last seen, legs improved. Both lower legs with skin changes due to lymphedema, brown bumpy dry skin. L lateral lower
leg weeping serous drainage, + odor. Heels intact,+ palpable pedal pulses, LE edema. Patient sleepy but able to turn self and lift legs when asked. Sacrum is intact. Skin folds with mild MASD.
Appetite: good.
Pressure redistribution devices in place: Accumax, turns self.
Plan: L lateral leg dressing changed with dry dressing. Will order mineral oil for lower legs and Dakin's for cleaning/ soaks daily. Brody wraps applied knee high both legs. Dr. Hoskins at bedside and approved of the above orders.
Nurse Benny updated. Care plan to be updated and will follow as needed.
Recommend patient follow up with a lymphedema therapist upon discharge.
[2025-02-21] MEDS: ROXICODONE 20 MG PO ×2 (13:04→22:59)
[2025-02-21] MEDS: ZANAFLEX 2 MG PO ×2 (13:04→23:03)
[2025-02-21] MEDS: ROCEPHIN 2000 MG IV (13:06)
[2025-02-21] MEDS: BELBUCA BUCCAL (14:05)
[2025-02-21] MEDS: NSS IV (14:09)
[2025-02-21] MEDS: OXYCONTIN (CONTROLLED RELEASE) 40 MG PO (16:35)
[2025-02-21] MEDS: BELBUCA 300 MCG BUCCAL ×2 (16:37→20:05)
[2025-02-21] MEDS: LOVENOX 40 MG SC (17:06)
[2025-02-21] MEDS: SENOKOT-S 1 TABLET PO (20:04)
[2025-02-21] MEDS: DESENEX/MITRAZOL/ZEASORB TOPICAL (20:14)
[2025-02-21] MEDS: COMPAZINE 10 MG IV (23:11)
[2025-02-22] VITALS (26 sets, daily range): BP systolic 145–219; BP diastolic 67–140
[2025-02-22] MEDS: APRESOLINE 10 MG IV ×3 (00:33→16:59)
[2025-02-22] MEDS: OXYCONTIN (CONTROLLED RELEASE) PO (02:12)
[2025-02-22] MEDS: TYLENOL PO (02:12)
[2025-02-22] MEDS: BELBUCA BUCCAL (02:12)
[2025-02-22] MEDS: BELBUCA 300 MCG BUCCAL ×2 (04:51→07:39)
[2025-02-22 05:41] LABS: Hematocrit 40.7 % (39.0-52.0); Hemoglobin 13.6 g/dL (13.0-18.0); Mean Corp Hgb Conc. 33.4 g/dL (33.0-37.0); Mean Corpuscular Volume 80.8 fL (80.0-94.0); Mean Platelet Volume 9.6 fL (7.4-10.4); Platelet Count 374 10^3/uL (130-400); Red Blood Cell Count 5.04 10^6/uL (4.70-6.10); Red Cell Dist. Width 14.2 % (11.5-14.5); White Blood Cell Count 14.1 10^3/uL (4.8-10.8)
[2025-02-22 05:48] LABS: ALT (SGPT) 16 U/L (0-50); AST (SGOT) 18 U/L (17-59); Albumin 4.2 g/dl (3.5-5.0); Alkaline Phosphatase 77 U/L (38-126); Direct Bilirubin 0.1 mg/dl (0.0-0.4); Magnesium 1.7 mg/dl (1.6-2.3); Total Protein 7.6 g/dl (6.3-8.2)
[2025-02-22] MEDS: OXYCONTIN (CONTROLLED RELEASE) 40 MG PO ×3 (07:39→23:20)
[2025-02-22] MEDS: CATAPRES 0.1 MG PO ×2 (07:39→21:02)
[2025-02-22] MEDS: COZAAR 50 MG PO (07:39)
[2025-02-22] MEDS: TYLENOL 1000 MG PO ×3 (07:39→23:20)
[2025-02-22] MEDS: SENOKOT-S 1 TABLET PO (07:40)
[2025-02-22] MEDS: COREG 12.5 MG PO ×2 (07:41→21:02)
[2025-02-22] MEDS: DAKIN'S SOLUTION 0.125% 1/4 STRENGTH 473 ML TOPICAL (07:42)
[2025-02-22] MEDS: DESENEX/MITRAZOL/ZEASORB 1 APPLIC TOPICAL ×2 (07:42→21:07)
[2025-02-22] MEDS: HYDROPHOR 1 APPLIC TOPICAL (07:43)
[2025-02-22] MEDS: MIRALAX PO (07:43)
[2025-02-22] MEDS: COLACE PO ×2 (11:01→21:02)
[2025-02-22] MEDS: SENOKOT PO ×2 (11:02→21:02)
[2025-02-22] MEDS: APRESOLINE 5 MG IV (11:26)
[2025-02-22] MEDS: ROCEPHIN 2000 MG IV (11:26)
[2025-02-22] MEDS: TRANDATE 10 MG IV ×2 (11:26→23:13)
--- NOTE | 2025-02-22 11:34 | W.PN.HOSP.TC ---
Addendum entered and electronically signed by Melodie Hoskins MD 02/22/25 15:42:
Called first contact who is patient's -not able to reach
Second contact mother to update regarding the change in medical condition. Updated about transfer to ICU and patient's condition.
She stated that patient and his live with her and mostly stay in the room .
They have 4 children together but they do not have custody of them, the children live with 's oldest daughter from another marriage.
Updated mom regarding patient's condition.
Reportedly patient's has not been home since yesterday.
Original Note:
Today's Communication/Plan
-
BP control
Transfer to ICU for Cardene gtt
Nephrology eval
Assessment / Plan
Assessment / Plan
50-year-old male with diarrhea, nausea vomiting incontinence agitation. BP was elevated in the ER. Snorts Fentanyl daily- 1 bag. Stopped on 02/19/2025. Unclear if he was discharged from a Suboxone clinic because he was also using illegal
medicines along with the Suboxone. Patient stated that he took Suboxone left from before. Went through withdrawal. He and his significant other live with his 84-year-old mother. He has 5 children but does not have custody.
Head CT 02/20/2025-ventricular shunt
Patient was very agitated in the beginning of the conversation and used curse words with ' F--' . Patient was being very unreasonable in terms of his demands. 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 Discussed about getting
physical therapy which patient did not like. He stated that he does not need physical therapy he just needs his cane. He also reported that the cane in his room is not the same as what he brought in and he would only use his cane. Patient also
reported that he has right-sided weakness from his previous stroke. Reports that he was treated at [facility] for 3 months and had a tracheostomy. Note that he did not let me examine properly him yesterday. Then calmed down eventually.
Chest: CTA B/L
Abdomen: Soft, NT / Bowel sounds present
Extremities: Chronic skin thickening bilateral with skin. Left leg with infection
Right facial droop-
Tracheostomy scar
Right hemiparesis
# Cellulitis left lower extremity
Has tolerated cefepime in the past
Started ceftriaxone
Wound care has been consulted
# Hypertensive urgency
BP 219 /102 mm H=g now
One dose of Labetalol now and Hydralazine now.
Continue Coreg 12.5 twice daily, losartan, clonidine
Increased dose of losartan to 100 mg and clonidine 0.1 made twice daily
Possibly secondary to drug withdrawal
Start Cardene gtt
Nephrology eval
Unclear if he had secondary HTN work up in the past.
# Opiate abuse with withdrawal
COWS score to be followed
[facility] referral patient refused now he may need someone to follow-up in the community to enroll him to a Suboxone clinic.
Patient is agreeable to start micro dosing protocol instead of the traditional which will decrease the symptoms.
Tolerating that.
# Microscopic hematuria- CT scan of the abdomen and pelvis ordered with persisting microscopic hematuria and abnormality in the ureter in the past. Pt refused yesterday. Will bring it up again when less agitated.
# History of CVA-left thalamus measuring at least 2.5 cm bleed 01/07/24. Transferred to [facility] . Pt says he was there for 3 months and has weaness of right side and facial droop Get records
# Leukocytosis- elevated since 2008 labs here- Needs Heme eval as OP
# Chronic back pain
# Morbid obesity with a BMI of 39
# History of nephrolithiasis
# Possible sleep apnea-needs outpatient study as OP
# ADHD
# Hepatic steatosis per prior imaging
# Active smoker-cessation counseling
# DVT prophylaxis-Lovenox
# Full code
Discussed with nursing at bed side
Called significant other . No answer.
Called mom and left a message for call back.
Time spent over 50 minutes
Part of this note was created using voice recognition system. Occasional wrong word or��sound alike� substitutions may have inadvertently occurred due to the inherent limitations of voice recognition software. If noted kindly bring it to my
attention for correction.
Anticipated Discharge: > 48 hours
Subjective/Interval History
-
Date of Service: February 22, 2025
Objective Data
-
Labs:
Laboratory Results
02/22/25
05:07
WBC 14.1 H
Hgb 13.6
Hct 40.7
Plt Count 374
Total Bilirubin 1.0
AST 18
ALT 16
Alkaline Phosphatase 77
Vital Signs:
Vital Signs
Temp Pulse Resp BP Pulse Ox
97.7 F 77 20 219/102 96
02/22/25 11:00 02/22/25 11:00 02/22/25 11:00 02/22/25 11:00 02/22/25 11:00
I&O
02/21/25 02/22/25 02/23/25
06:59 06:59 06:59
Intake Total 1200 / 1200 940 / 940
Output Total 500 / 500 2650 / 2650
Balance 700 / 700 -1710 / -1710
--- NOTE | 2025-02-22 12:18 | PTCARENOTE ---
patient's SBP in 200s, at bedside assessing. stat orders for IV Hydralazine and IV Labetalol. meds given and BP reasessed. SBP 183. ICU transfer for oziel gtt order placed and noted.
--- NOTE | 2025-02-22 13:08 | CON.INTV ---
Consultation
Consultation Request
Date/Time Consultation Requested: 02/22/2025
Date/Time Consultation Performed: 02/22/2025
Requesting Provider: Melodie Hoskins
Performing Provider: Mariana Bethea
Reason for Consultation: Hypertensive
Medical History
-
Chief Complaint: Elevated blood pressure
History of Present Illness:
Patient is a 50-year-old gentleman who was readmitted to the hospitalist service on 02/20 with concern for opioid withdrawal. He was also noted to have high blood pressure. He was admitted to the hospital and was started on buprenorphine protocol
and opioid withdrawal was managed with gradual improvement. Patient however continued to stay hypertensive and was on multiple antihypertensive medications. Today he was noted to be severely hypertensive with systolic above 200 at which point he
was started on Cardene infusion and was transferred to ICU. Mumps Developer consultation was requested for further input regarding hypertensive urgency.
Patient has prior history of thalamic hemorrhage complicated by prolonged respiratory failure requiring tracheostomy and a long length of stay in the hospital. Patient is s/p INSURANCE ANALYST shunt since with unequal ventricle sizes.
Past Medical History
Past Medical History: Reports Other
Additional Past Medical History:
Attention deficit with hyperactivity disorder
Migraine
ADHD
Hypertension
Bilateral ankle and wrist fractures
Past Surgical History: Reports Other
Additional Past Surgical History:
Bursitis surgery
Social History
Tobacco: Non-smoker
Alcohol: None
Drug: Other (heroine)
Family History
Family History: Not pertinent
Allergies / Home Medications
Allergies / Home Medications
Allergies
Allergy/AdvReac Type Severity Reaction Status Date / Time
clindamycin Allergy Unknown Verified 02/20/25 13:33
Corticosteroids Allergy Unknown Verified 02/20/25 13:33
(Glucocorticoids)
diphenhydramine HCl Allergy Unknown Verified 02/20/25 13:33
[From Benadryl]
hydroxyzine [Hydroxyzine] Allergy Unknown Verified 02/20/25 13:33
peach Allergy Tongue Verified 02/20/25 13:33
Swelling
Penicillins Allergy Shortness Verified 02/20/25 13:33
of Breath;
tolerated
cefepime
sulfamethoxazole Allergy Unknown Verified 02/20/25 13:33
[From Bactrim]
tramadol Allergy 'throat Verified 02/20/25 13:33
swells up'
trimethoprim [From Bactrim] Allergy Unknown Verified 02/20/25 13:33
hydrocodone bitartrate AdvReac vomiting Verified 02/20/25 17:22
[From Vicodin]
Iodinated Contrast Media AdvReac Vomiting Verified 02/20/25 17:22
Home Medications
�Medication �Instructions �Recorded �Confirmed �Last Taken �Type
buprenorphine 8 mg-naloxone 2 mg 1 film buccal DIRECTED 02/20/25 02/20/25 02/20/25 History
sublingual film (Suboxone) 2 films
carvedilol 12.5 mg tablet (Coreg) 12.5 mg PO BID Blood Pressure 02/20/25 02/20/25 02/20/25 History
clonidine HCl 0.1 mg tablet 0.1 mg PO DAILY Blood Pressure 02/20/25 02/20/25 Unknown History
losartan 50 mg tablet 50 mg PO DAILY Blood Pressure 02/20/25 02/20/25 02/20/25 History
Review of Systems
-
Unable to Obtain full review of systems at this time due to: Other (Patient is awake alert and appears to have some cognitive deficit. No new symptoms reported. No trouble breathing or chest pain.)
Vitals / Labs / Diagnostic Testing
Vital Signs
Temp Pulse Resp BP Pulse Ox
97.7 F 77 20 183/99 96
02/22/25 11:00 02/22/25 12:12 02/22/25 11:00 02/22/25 12:12 02/22/25 11:00
Lab Data
02/22/25 05:07
02/20/25 15:54
Microbiology
02/20/25 21:16 Nose MRSA Screen - Final
No Methicillin Resistant Staphylococcus aureus isolated.
Diagnostic Testing:
Physical Exam
-
HEENT: Normocephalic
Cardiovascular: S1/S2
Respiratory: Clear and Non-Labored Respirations
GI: Soft and Non Distended
Neurology: Awake
Skin: Warm
General: Comfortable
Assessment
-
#1. Hypertensive urgency, systolic noted to be above 200.
- Patient transferred to ICU, Cardene infusion continuing
- Continue Coreg, losartan. Increase clonidine dose to 0.1 mg 3 times daily
- Add as needed labetalol 10 mg every 4 hours as needed for systolic above 170
- Nephrology service consulted
- Monitor closely in the ICU
- Renal function normal, CT head without any acute change.
#2. Opioid use disorder with opioid withdrawal this admission.
- Patient currently appears calm, awake alert and interactive.
- Does not seem to be an active opioid withdrawal at present.
- Currently on buprenorphine micro dosing protocol.
- Continue COWS monitoring
- Increase clonidine to 0.1 mg p.o. 3 times daily
#3. History of left thalamic intracranial hemorrhage (01/2024)
- CT head reviewed, no acute changes this admission
- History of a 3-month hospitalization at [facility], s/p tracheostomy, subsequently decannulated
- Patient is s/p INSURANCE ANALYST shunt placement
Other medical diagnoses:
- Left lower extremity cellulitis, currently on ceftriaxone
- Microscopic hematuria, once patient is more stable he will need a CT scan of abdomen and pelvis due to prior history of ureteral abnormality noted on imaging
- Morbid obesity, might have underlying sleep disordered breathing, outpatient workup
DVT prophylaxis with subcu Lovenox
Critical Care time 65 mins -- The patient is admitted for acute critical illness for the treatment of vital organ failure and/or prevention of further life-threatening conditions. Total care includes time spent in review of history, physical exam,
medications, hemodynamic/ventilator parameters, laboratory data, imaging and discussion with house staff, pharmacy, respiratory therapy, executive business coach, and nursing.
Data:
CT head 01/2025: There is a ventricular shunt present which enters from the right superior frontal region, with tip of the shunt to the junction of the inferior frontal horn of the right lateral ventricle and the third ventricle.
There is decreased size of the right lateral ventricle when compared to the left, and slight shift of the septum pellucidum toward the left, and findings suggest peripheral arterial shunting of the right lateral ventricle when compared to the left.
There is no evidence of acute intracranial hemorrhage.
In the inferior aspect of the left thalamus, there is a small focal area of decreased density measuring 1.5 cm transverse by 0.8 cm AP, compatible with encephalomalacia from previous region of intracranial hemorrhage.
No abnormal extra-axial collection is identified.
There is 80% opacification of the sphenoid sinus, slightly improved from previous examination. The rest of the paranasal sinuses appear clear. The mastoid air cells appear clear.
[2025-02-22] MEDS: MAGNESIUM OXIDE 500 MG PO (13:16)
[2025-02-22] MEDS: SUBUTEX 2 MG SL ×3 (13:16→21:03)
--- NOTE | 2025-02-22 13:45 | PTCARENOTE ---
Pt arrived to ICU @ 1330. Cardene gtt initiated @ 5mg/hr. Goal to maintain SBP 140-160. See intervention for documentation. Pt rec'd A&Ox3. Flat affect. Appears comfortable...denies pain at present. Able to assist w/ repositioning. FLORES's but
weak LE's. S1 S2 reg w/ NSR on monitor. Weak PP...confirmed w/ doppler. No edema. On R/A...sats 94%. Lungs clear. Abdomen obese...+BS. Voids yellow urine...uses urinal. Skin WNL x cellulitic LE's. Seen by wound care yesterday. 20P LAC. VS
documented. Call finley within reach. Will continue to monitor.
[2025-02-22] MEDS: CARDENE 200 IV ×3 (13:46→21:54)
--- NOTE | 2025-02-22 16:00 | PTCARENOTE ---
No major changes in physical assessment since am. Remains on R/A...drowsy but easily arousable. Takes po meds w/o issue. Bilateral LE dressings changed per wound care orders. Remains on cardene gtt...currently @ 7.5 mg/hr...see intervention.
Ice water and call finley at bedside. Will continue to monitor.
--- NOTE | 2025-02-22 16:04 | W.CON.NEPH ---
Consultation
-
Date/Time Consultation Requested: 02/22/25 1106
Date/Time Consultation Performed: 02/22/25 1700
Requesting Provider: Melodie Zuluaga
Performing Provider: Kamini Figueredo
Reason for Consultation: HTN urgency
Medical History
-
Chief Complaint: diarrhea vomiting
History of Present Illness:
50-year-old female who has history of CVA Left thalamus bleed in January 2020 for prolonged hospitalization requiring ENERGY ATTORNEY shunt, residual right-sided deficit, hypertension on Coreg, clonidine, losartan, substance abuse on chronic Suboxone presented
with the describing heroin withdrawal. reportedly snorts Heroin every day and stopped taking day before the admission. He felt withdrawal symptoms nausea vomiting, Diarrhea, agitation. His symptoms got worse with the Suboxone and hence presented
to the ER on 02/20. He noted to be hypertensive in 200 range. Noted to have cellulitis of left lower extremity started an antibiotic for this. he was started on the ibuprofen for opiate withdrawal with improvement of symptoms however his blood
pressure did not respond much hence his transfer to the ICU for Cardene drip today. Nephrology consult to further evaluate hypertension and adjust medications.
He reports blood pressure always elevated at least 200 range at home. but does not check regularly. he has noticed mild hematuria for the last few months however did not seek any medical attention. Has history of kidney stones doesn't recall if he
has any symptoms related to the stone. does complain of a mild headache. No nausea or vomiting. No abdominal pain currently. Denies any dysuria.
Past Medical History
HTN
Substance abuse
History of CVA-left thalamus measuring at least 2.5 cm bleed 01/07/24. ENERGY ATTORNEY shunt
Chronic back pain
Morbid obesity with a BMI of 39
History of nephrolithiasis
ADHD
Hepatic steatosis per prior imaging
Bilateral ankle and wrist fractures
Past Surgical History: Other (Bursitis surgery, Ventricular shunt)
Social History
lives with his at his mom's home. His children are under custody of his elder daughter
Tobacco: Non-Smoker
Alcohol: None
Drug: Other ( heroin-snort)
Personal:
Living: With Family
Family History
Family History: Not Pertinent
Allergies / Home Medications
Allergy/AdvReac Type Severity Reaction Status Date / Time
clindamycin Allergy Unknown Verified 02/20/25 13:33
Corticosteroids Allergy Unknown Verified 02/20/25 13:33
(Glucocorticoids)
diphenhydramine HCl Allergy Unknown Verified 02/20/25 13:33
[From Benadryl]
hydroxyzine [Hydroxyzine] Allergy Unknown Verified 02/20/25 13:33
peach Allergy Tongue Verified 02/20/25 13:33
Swelling
Penicillins Allergy Shortness Verified 02/20/25 13:33
of Breath;
tolerated
cefepime
sulfamethoxazole Allergy Unknown Verified 02/20/25 13:33
[From Bactrim]
tramadol Allergy 'throat Verified 02/20/25 13:33
swells up'
trimethoprim [From Bactrim] Allergy Unknown Verified 02/20/25 13:33
hydrocodone bitartrate AdvReac vomiting Verified 02/20/25 17:22
[From Vicodin]
Iodinated Contrast Media AdvReac Vomiting Verified 02/20/25 17:22
�Medication �Instructions �Recorded �Confirmed �Type
buprenorphine 8 mg-naloxone 2 mg 1 film buccal DIRECTED 02/20/25 02/20/25 History
sublingual film (Suboxone)
carvedilol 12.5 mg tablet (Coreg) 12.5 mg PO BID Blood Pressure 02/20/25 02/20/25 History
clonidine HCl 0.1 mg tablet 0.1 mg PO DAILY Blood Pressure 02/20/25 02/20/25 History
losartan 50 mg tablet 50 mg PO DAILY Blood Pressure 02/20/25 02/20/25 History
Review of Systems
-
All other systems: Negative unless noted
Physical Exam
Vital Signs
Vital Signs
Temp Pulse Resp BP Pulse Ox
99.1 F 110 25 155/67 93
02/22/25 13:47 02/22/25 14:30 02/22/25 14:30 02/22/25 14:30 02/22/25 14:30
Lab Results
WBC 14.1 10^3/uL (4.8-10.8) H 02/22/25 05:07
RBC 5.04 10^6/uL (4.70-6.10) 02/22/25 05:07
Hgb 13.6 g/dL (13.0-18.0) 02/22/25 05:07
Hct 40.7 % (39.0-52.0) 02/22/25 05:07
Plt Count 374 10^3/uL (130-400) 02/22/25 05:07
Sodium 139 mmol/L (135-145) 02/20/25 15:54
Potassium 3.7 mmol/L (3.5-5.1) 02/20/25 15:54
Chloride 103 mmol/L (98-107) 02/20/25 15:54
Carbon Dioxide 29 mmol/L (22-30) 02/20/25 15:54
BUN 14 mg/dl (9-20) 02/20/25 15:54
Creatinine 0.7 mg/dL (0.7-1.3) 02/20/25 15:54
eGFR > 60.00 02/20/25 15:54
Glucose 129 mg/dl (70-99) H 02/20/25 15:54
Calcium 9.7 mg/dl (8.4-10.2) 02/20/25 15:54
Albumin 4.2 g/dl (3.5-5.0) 02/22/25 05:07
Physical Exam
General: Awake, Alert, Oriented, AOx3, No Distress and Nontoxic
HEENT: EOMI, Anicteric, Conjunctivae Clear, Ear/Nose Intact and Other ( Right-sided paresis)
Respiratory: Clear, Normal Excursion and Nonlabored Respirations
Cardiac: S1/S2, Regular Rate/Rhythm and Other (tachycardic)
Breast: Deferred by me
Abdomen: Soft, Nontender and Nondistended
Musculoskeletal: No Cyanosis and Edema (2+, CHAUNCEY bandage)
Skin: No Rash
Neuro: Other ( right side hemiparesis)
Psych: Appropriate and Other ( poor insight)
Assessment/Plan
-
IMP:
Cellulitis left lower extremity
Hypertensive urgency
Opiate abuse with withdrawal
Microscopic hematuria, Albuminuria noted in the urine
History of CVA-left thalamus measuring at least 2.5 cm bleed 01/07/24. ventricular shunt
Leukocytosis- elevated since 2008 labs
Chronic back pain
Morbid obesity with a BMI of 39
History of nephrolithiasis
Possible sleep apnea-needs outpatient study asleep
ADHD
Hepatic steatosis per prior imaging
Active smoker
Plan:
a/w Opiate withdrawal
Hypertensive urgency with baseline uncontrolled hypertension
Reviewing his old records blood pressure always seem to be elevated
Agree with Titrating the medications clonidine 3x a day, could potentially titrate dose up Specially he is tachy
Losartan increased 100 mg daily
cont carvedilol to 12.5 mg twice a day, prn labetalol,
avoid drastic blood pressure changes, blood pressure goal today at 160
Did not see secondary workup in the past, this can be considered however lab results may not be accurate in setting of withdrawal
He maintained his normal renal function however noted microscopic hematuria and albuminuria
Known history of kidney stones, agree with checking renal imaging-CT is ok
Check urine PCR
Discussed with the patient in detail
Discussed with the nursing and ICU
[2025-02-22] MEDS: ROXICODONE 20 MG PO ×2 (17:02→21:03)
[2025-02-22 17:14] LABS: Urine Protein 32 mg/dl
[2025-02-22] MEDS: LOVENOX 40 MG SC (17:45)
[2025-02-22] MEDS: COMPAZINE 10 MG IV (20:20)
--- NOTE | 2025-02-22 20:20 | PTCARENOTE ---
clinical rehabilitation liaison, arouses to verbal, SR HR 90s. pt c/o headache- requesting oxycodone-med not yet due, pt declined tylenol. prn compazine given for nausea. LAC IV WNL- cardene gtt infusing per work list. POC discussed, call finley with pt.
[2025-02-23] VITALS (38 sets, daily range): BP systolic 93–184; BP diastolic 53–97; BMI 33.3
--- NOTE | 2025-02-23 | PTCARENOTE ---
no changes in pt assessment.
[2025-02-23] MEDS: CARDENE 200 IV ×3 (00:49→08:55)
[2025-02-23] MEDS: ROXICODONE 20 MG PO ×3 (01:47→20:11)
[2025-02-23] MEDS: APRESOLINE 10 MG IV (03:12)
[2025-02-23 03:28] LABS: Hematocrit 43.1 % (39.0-52.0); Hemoglobin 14.5 g/dL (13.0-18.0); Mean Corp Hgb Conc. 33.6 g/dL (33.0-37.0); Mean Corpuscular Hgb 27.6 pg (27.0-31.0); Mean Corpuscular Volume 81.9 fL (80.0-94.0); Mean Platelet Volume 9.4 fL (7.4-10.4); Platelet Count 357 10^3/uL (130-400); Red Blood Cell Count 5.26 10^6/uL (4.70-6.10); Red Cell Dist. Width 14.5 % (11.5-14.5); White Blood Cell Count 11.2 10^3/uL (4.8-10.8)
[2025-02-23 03:47] LABS: Blood Urea Nitrogen 12 mg/dl (9-20); Calcium 9.3 mg/dl (8.4-10.2); Carbon Dioxide 30 mmol/L (22-30); Chloride 106 mmol/L (98-107); Estimated Creatinine Clearance > 125 ml/min; Glucose 130 mg/dl (70-99); Potassium 3.4 mmol/L (3.5-5.1); Sodium 141 mmol/L (135-145); eGFR > 60.00
[2025-02-23] MEDS: KCL 40 MEQ PO (05:52)
[2025-02-23] MEDS: TRANDATE 10 MG IV (05:53)
--- NOTE | 2025-02-23 06:35 | PTCARENOTE ---
pt SBP labile t/o shift, cardene gtt continues along with prn BP meds per MAR. no further changes in assessment.
[2025-02-23] MEDS: MAGNESIUM OXIDE 500 MG PO (07:30)
[2025-02-23] MEDS: CATAPRES 0.1 MG PO (07:30)
[2025-02-23] MEDS: SENOKOT PO (07:34)
[2025-02-23] MEDS: MIRALAX PO (07:34)
[2025-02-23] MEDS: TYLENOL 1000 MG PO ×3 (07:34→23:55)
[2025-02-23] MEDS: COZAAR 100 MG PO (07:34)
[2025-02-23] MEDS: COLACE PO (07:34)
[2025-02-23] MEDS: COREG 12.5 MG PO ×2 (07:34→20:11)
[2025-02-23] MEDS: OXYCONTIN (CONTROLLED RELEASE) 40 MG PO (07:35)
[2025-02-23] MEDS: SUBUTEX 2 MG SL (07:35)
--- NOTE | 2025-02-23 07:45 | PTCARENOTE ---
Assumed care of patient. Pt rec'd sleeping but easily arousable. A&Ox3. Pleasant. Breakfast ordered. PO meds taken w/o issue. Appears comfortable...denies pain at present. Able to assist w/ repositioning. FLORES's but weak LE's. S1 S2 reg w/
NSR on monitor. Weak PP...confirmed w/ doppler. No edema. On 2L N/C...sats 97%. Lungs clear. Abdomen obese...+BS. Voids yellow urine...uses urinal. Skin WNL x cellulitic LE's. Brody wraps dry and intact. Will change dressings per wound care
orders. 20P LAC. Cardene gtt infusing @ 10mg/hr. VS documented. Call finley within reach. Chol lowering diet. Will continue to monitor.
Initialized on 02/22/25 15:17 - END OF NOTE
[2025-02-23] MEDS: DESENEX/MITRAZOL/ZEASORB 1 APPLIC TOPICAL ×2 (08:45→20:12)
[2025-02-23] MEDS: DAKIN'S SOLUTION 0.125% 1/4 STRENGTH 473 ML TOPICAL (08:45)
[2025-02-23] MEDS: HYDROPHOR 1 APPLIC TOPICAL (09:03)
[2025-02-23] MEDS: LR 500 IV (10:39)
--- NOTE | 2025-02-23 11:06 | W.PN.NEPH.PH ---
Today's Communication / Plan
-
see plan
Assessment/Plan
-
IMP:
Cellulitis left lower extremity
Hypertensive urgency
Opiate abuse with withdrawal
Microscopic hematuria, Albuminuria noted in the urine
History of CVA-left thalamus measuring at least 2.5 cm bleed 01/07/24. ventricular shunt
Leukocytosis- elevated since 2008 labs
Chronic back pain
Morbid obesity with a BMI of 39
History of nephrolithiasis
Possible sleep apnea-needs outpatient study asleep
ADHD
Hepatic steatosis per prior imaging
Active smoker
Plan:
a/w Opiate withdrawal
Hypertensive urgency with baseline uncontrolled hypertension
Reviewing his old records blood pressure always seem to be elevated
since adjustment meds, able to wean off cardene gtt
clonidine 0.1mg 3x a day,
Losartan increased 100 mg daily
cont carvedilol to 12.5 mg twice a day, prn labetalol,
avoid drastic blood pressure changes, blood pressure goal today at 140
Did not see secondary workup in the past, this can be considered however lab results may not be accurate in setting of withdrawal, check ARR with hypokalemia
He maintained his normal renal function however noted microscopic hematuria and albuminuria
Known history of kidney stones, agree with checking renal imaging-CT is ok today
Check urine PCR-1gm/gm of cr could be hyperfiltration from HTN-monitor out pt
Discussed with the patient
Discussed with the nursing and ICU
-
-
Date of Service: February 23, 2025
CC / HPI / ROS
-
Chief Complaint:
HTN urgency
History of Present Illness:
k low 3.4, BP low this am, cardene to be off
no fever, less agigated
Review of Systems:
no BURRIS
no cp or sob
no dysuria, non oliguric
Labs
-
Labs:
WBC 11.2 10^3/uL (4.8-10.8) H 02/23/25 03:11
RBC 5.26 10^6/uL (4.70-6.10) 02/23/25 03:11
Hgb 14.5 g/dL (13.0-18.0) 02/23/25 03:11
Hct 43.1 % (39.0-52.0) 02/23/25 03:11
Plt Count 357 10^3/uL (130-400) 02/23/25 03:11
Sodium 141 mmol/L (135-145) 02/23/25 03:11
Potassium 3.4 mmol/L (3.5-5.1) L 02/23/25 03:11
Chloride 106 mmol/L (98-107) 02/23/25 03:11
Carbon Dioxide 30 mmol/L (22-30) 02/23/25 03:11
BUN 12 mg/dl (9-20) 02/23/25 03:11
Creatinine 0.7 mg/dL (0.7-1.3) 02/23/25 03:11
eGFR > 60.00 02/23/25 03:11
Glucose 130 mg/dl (70-99) H 02/23/25 03:11
Calcium 9.3 mg/dl (8.4-10.2) 02/23/25 03:11
Albumin 4.2 g/dl (3.5-5.0) 02/22/25 05:07
Physical Exam
-
Vital Signs:
Vital Signs
Temp Pulse Resp BP Pulse Ox
98.1 F 70 13 106/60 96
02/23/25 07:22 02/23/25 10:24 02/23/25 10:24 02/23/25 10:24 02/23/25 10:24
Cardiovascular:: Regular rate and rhythm
Respiratory:: Bilateral: Coarse
Lung Excursion:: Normal
Abdomen:: Nontender and Soft
Extremity Edema:: +2: Bilateral:
Cheng Catheter: No
[2025-02-23] MEDS: FLUSH (NSS) 1 FLUSH IV ×2 (11:43→11:48)
[2025-02-23] MEDS: ROCEPHIN 2000 MG IV (11:43)
--- NOTE | 2025-02-23 12:00 | PTCARENOTE ---
Cardene gtt turned off @ 1015 due to lower BP's. and aware. LR bolus provided. No major changes in physical assessment. Currently on R/A...sats 94%. Lunch ordered. Call finley at bedside. VS documented. Will continue to
monitor.
--- NOTE | 2025-02-23 12:10 | W.PN.HOSP.TC ---
Today's Communication/Plan
-
Wean down and off Cardene
Watch BP
CT A/P when PT agrees
AB for LLE
Wound care
Opiate withdrawal protocol.
Assessment / Plan
Assessment / Plan
50-year-old male with diarrhea, nausea vomiting incontinence agitation. BP was elevated in the ER. Snorts Fentanyl daily- 1 bag. Stopped on 02/19/2025. Unclear if he was discharged from a Suboxone clinic because he was also using illegal
medicines along with the Suboxone. Patient stated that he took Suboxone left from before. Went through withdrawal. He and his significant other live with his 84-year-old mother. He has 5 children but does not have custody.
Head CT 02/20/2025-ventricular shunt
Patient is much calmer today.
Chest: CTA B/L
Abdomen: Soft, NT / Bowel sounds present
Extremities: Chronic skin thickening bilateral with skin. Left leg with infection
Right facial droop- chronic
Tracheostomy scar
Right hemiparesis
# Hypertensive urgency
BP 219 /102 better
Continue Coreg 12.5 twice daily, losartan, clonidine
(Increased dose of losartan to 100 mg and clonidine 0.1 made TID )
Would want to avoid calcium channel blockers because of chronic lower extremity edema
Possibly secondary to drug withdrawal contributing to elevated blood pressure
Cardene gtt started 02/22/2025. Titrate down to off because blood pressure was running on the low side now.
Nephrology eval appreciated
Renin angiotensin aldosterone ordered
# Cellulitis left lower extremity
Has tolerated cefepime in the past
Started ceftriaxone
Wound care has been consulted
# Opiate abuse with withdrawal
COWS score to be followed
[facility] referral patient refused now he may need someone to follow-up in the community to enroll him to a Suboxone clinic.
Patient was agreeable to start micro dosing protocol instead of the traditional which will decrease the symptoms.
Tolerating that.
# Microscopic hematuria- CT scan of the abdomen and pelvis ordered with persisting microscopic hematuria and abnormality in the ureter in the past. Pt refused and was canceled. Will need this prior to discharge if pt is agreable. Will need dye prep
( Only listed as vomiting probably not a true allery)
# History of CVA-left thalamus measuring at least 2.5 cm bleed 01/07/24. Transferred to [place] . Pt says he was there for 3 months and has weakness of right side and facial droop Get records- ( ordered) current CT without any acute changes.
# Leukocytosis- elevated since 2008 labs here- Needs Heme eval as OP
# Hypokalemia-replace
# Chronic back pain
# Morbid obesity with a BMI of 39
# History of nephrolithiasis
# Possible sleep apnea-needs outpatient study as OP
# ADHD
# Hepatic steatosis per prior imaging
# Active smoker-cessation counseling
# DVT prophylaxis-Lovenox
# Full code
Discussed with nursing at bed side and photographic equipment technician.
Spoke to mom yesterday and updated.
Part of this note was created using voice recognition system. Occasional wrong word or��sound alike� substitutions may have inadvertently occurred due to the inherent limitations of voice recognition software. If noted kindly bring it to my
attention for correction.
Anticipated Discharge: 24 - 48 hours
Subjective/Interval History
-
Date of Service: February 23, 2025
Objective Data
-
Labs:
Laboratory Results
02/23/25
03:11
WBC 11.2 H
Hgb 14.5
Hct 43.1
Plt Count 357
Sodium 141
Potassium 3.4 L
Chloride 106
Carbon Dioxide 30
BUN 12
Creatinine 0.7
Glucose 130 H
Calcium 9.3
Vital Signs:
Vital Signs
Temp Pulse Resp BP Pulse Ox
98.1 F 70 13 106/60 96
02/23/25 07:22 02/23/25 10:24 02/23/25 10:24 02/23/25 10:24 02/23/25 10:24
I&O
02/22/25 02/23/25 02/24/25
06:59 06:59 06:59
Intake Total 940 / 940 2005.0 / 2055.0 642.5 / 642.5
Output Total 2650 / 2650 2625 / 2625 700 / 700
Balance -1710 / -1710 -620.0 / -570.0 -57.5 / -57.5
[2025-02-23] MEDS: SUBUTEX 4 MG SL ×3 (12:59→22:06)
--- NOTE | 2025-02-23 13:49 | W.PN.INTV ---
Today's Communication / Plan
Recommendations
- LR bolus 500 mL stat
- Wean Cardene infusion
- Target SBP around 140s today, avoid excessive drop in blood pressure
- CT abdomen pelvis for further evaluation of microscopic hematuria
- If patient stays off Cardene infusion, can potentially be transferred out of ICU
Assessment
-
Patient is a 50-year-old gentleman who was readmitted to the hospitalist service on 02/20 with concern for opioid withdrawal. He was also noted to have high blood pressure. He was admitted to the hospital and was started on buprenorphine protocol
and opioid withdrawal was managed with gradual improvement. Patient however continued to stay hypertensive and was on multiple antihypertensive medications. Today he was noted to be severely hypertensive with systolic above 200 at which point he
was started on Cardene infusion and was transferred to ICU. Customer Supply Chain Analyst consultation was requested for further input regarding hypertensive urgency.
Patient has prior history of thalamic hemorrhage complicated by prolonged respiratory failure requiring tracheostomy and a long length of stay in the hospital. Patient is s/p BOXING TRAINER shunt since with unequal ventricle sizes.
#1. Hypertensive urgency, systolic noted to be above 200.
- Patient was transferred to ICU, had been on Cardene infusion
- MAP down to 67 this morning, hold Cardene, add parameters to clonidine, LR bolus 500 mL stat
- Continue Coreg, losartan, holding parameters added for clonidine
- Continue as needed labetalol 10 mg every 4 hours as needed for systolic above 170
- Nephrology service consulted
- Renal function normal, CT head without any acute change
- If patient stays off Cardene infusion, can be downgraded from ICU
#2. Opioid use disorder with opioid withdrawal this admission.
- Patient currently appears calm, awake, alert and interactive.
- Does not seem to be an active opioid withdrawal at present.
- Currently on buprenorphine micro dosing protocol.
- Continue COWS monitoring
- Clonidine p.o.
#3. History of left thalamic intracranial hemorrhage (01/2024)
- CT head reviewed, no acute changes this admission
- History of a 3-month hospitalization at [facility], s/p tracheostomy, subsequently decannulated
- Patient is s/p BOXING TRAINER shunt placement
Other medical diagnoses:
- Left lower extremity cellulitis, currently on ceftriaxone
- Microscopic hematuria, follow-up CT abdomen pelvis today
- Morbid obesity, might have underlying sleep disordered breathing, outpatient workup
DVT prophylaxis with subcu Lovenox
Critical Care time 45 mins -- The patient is admitted for acute critical illness for the treatment of vital organ failure and/or prevention of further life-threatening conditions. Total care includes time spent in review of history, physical exam,
medications, hemodynamic/ventilator parameters, laboratory data, imaging and discussion with house staff, pharmacy, respiratory therapy, global implementation manager, and nursing.
Data:
CT head 01/2025: There is a ventricular shunt present which enters from the right superior frontal region, with tip of the shunt to the junction of the inferior frontal horn of the right lateral ventricle and the third ventricle.
There is decreased size of the right lateral ventricle when compared to the left, and slight shift of the septum pellucidum toward the left, and findings suggest peripheral arterial shunting of the right lateral ventricle when compared to the left.
There is no evidence of acute intracranial hemorrhage.
In the inferior aspect of the left thalamus, there is a small focal area of decreased density measuring 1.5 cm transverse by 0.8 cm AP, compatible with encephalomalacia from previous region of intracranial hemorrhage.
No abnormal extra-axial collection is identified.
There is 80% opacification of the sphenoid sinus, slightly improved from previous examination. The rest of the paranasal sinuses appear clear. The mastoid air cells appear clear.
Subjective Dataa
Subjective Data
Date of Service:
Date of Service: February 23, 2025
Subjective:
Patient comfortably lying in bed in no acute distress. No tremors or agitation noted.
Review of Systems
Genitourinary: Other (No reported chest pain, shortness of breath or headache.)
Objective Data
Data Reviewed
Vital Signs / I&O / Oxygen:
Vital Signs
Temp Pulse Resp BP Pulse Ox
99.3 F 69 12 144/83 94
02/23/25 12:00 02/23/25 12:00 02/23/25 12:00 02/23/25 12:00 02/23/25 12:00
Intake and Output
02/22/25 02/23/25 02/24/25
06:59 06:59 06:59
Intake Total 940 / 940 2005.0 / 5.0 1002.5 / 1002.5
Output Total 2650 / 2650 2625 / 2625 700 / 700
Balance -1710 / -1710 -620.0 / -570.0 302.5 / 302.5
SaO2 94
Nasal Cannula flow liters per 2
minute
Physical Exam
General: Comfortable
HEENT: Normocephalic
Cardiovascular: S1-S2
Respiratory: Clear
GI: Soft and Non Distended
Neurology: Awake and Alert
Skin: Warm
Labs/Micro/Reports
Lab Data
02/23/25 03:11
02/23/25 03:11
Microbiology
02/20/25 21:16 Nose MRSA Screen - Final
No Methicillin Resistant Staphylococcus aureus isolated.
--- NOTE | 2025-02-23 16:00 | PTCARENOTE ---
No major changes in physical assessment. On R/A...sats 95%. Resting comfortably at present. VS documented. Call finley within reach.
[2025-02-23] MEDS: CATAPRES PO ×2 (16:07→22:04)
[2025-02-23] MEDS: OXYCONTIN (CONTROLLED RELEASE) 20 MG PO ×2 (16:07→23:55)
--- NOTE | 2025-02-23 17:14 | PTCARENOTE ---
CT completed per MD order.
[2025-02-23] MEDS: LOVENOX 40 MG SC (17:40)
[2025-02-23] MEDS: SENOKOT 17.2 MG PO (20:10)
[2025-02-23] MEDS: COLACE 100 MG PO (20:11)
--- NOTE | 2025-02-23 21:18 | PTCARENOTE ---
Assumed care of pt. approx 1900.
Remains of cardene gtt, titrated off by day team.
offers complaints of pain in lower extremities, see mar for PRN use.
RA maintaining own airway, Normotensive, Normothermic, No neuro deficits noted cow score 0.
--- NOTE | 2025-02-23 23:32 | PTCARENOTE ---
Pt. having episodes of desatting in relation to FRANKO, placed on 2L o2.
No further change in assessment.
[2025-02-24] VITALS (38 sets, daily range): BP systolic 135–196; BP diastolic 55–106; BMI 33.3
[2025-02-24] MEDS: TRANDATE 10 MG IV ×2 (01:07→08:46)
--- NOTE | 2025-02-24 03:10 | PTCARENOTE ---
Pt. had one episode of hypertension outside of goal parameters. PRN labetalol given, now remains within parameters. See vital flowsheets for closer details.
Still having breakthrough pain, PRNs given, ICU LINDA made aware.
No further changes in assessment, Mentating well RASS 0/-1, NSR w.o ectopy noted.
[2025-02-24 03:47] LABS: Hematocrit 40.1 % (39.0-52.0); Hemoglobin 13.4 g/dL (13.0-18.0); Mean Corp Hgb Conc. 33.4 g/dL (33.0-37.0); Mean Corpuscular Hgb 27.5 pg (27.0-31.0); Mean Corpuscular Volume 82.3 fL (80.0-94.0); Mean Platelet Volume 9.4 fL (7.4-10.4); Platelet Count 348 10^3/uL (130-400); Red Blood Cell Count 4.87 10^6/uL (4.70-6.10); Red Cell Dist. Width 14.7 % (11.5-14.5); White Blood Cell Count 10.6 10^3/uL (4.8-10.8)
[2025-02-24 04:08] LABS: Blood Urea Nitrogen 20 mg/dl (9-20); Calcium 9.3 mg/dl (8.4-10.2); Carbon Dioxide 30 mmol/L (22-30); Chloride 107 mmol/L (98-107); Estimated Creatinine Clearance > 125 ml/min; Glucose 102 mg/dl (70-99); Potassium 4.1 mmol/L (3.5-5.1); Sodium 140 mmol/L (135-145); eGFR > 60.00
[2025-02-24] MEDS: ROXICODONE 20 MG PO ×5 (04:35→23:57)
[2025-02-24] MEDS: APRESOLINE 10 MG IV ×2 (04:35→15:12)
--- NOTE | 2025-02-24 04:40 | PTCARENOTE ---
Pt. cont. to have breakthrough pain in lower extrem.
Repositioned, PRNs given.
[2025-02-24] MEDS: CATAPRES 0.1 MG PO ×3 (06:09→21:02)
[2025-02-24] MEDS: COREG 12.5 MG PO ×2 (06:09→09:02)
[2025-02-24] MEDS: COZAAR 100 MG PO (06:10)
--- NOTE | 2025-02-24 06:13 | PTCARENOTE ---
Pt. remains hypertensive despite PRNs.
ICU LINDA notified, orders to give PO regiment early, recheck in 1 hour if hypertension cont. start cardene.
[2025-02-24] MEDS: TYLENOL 1000 MG PO ×3 (08:21→23:57)
[2025-02-24] MEDS: MAGNESIUM OXIDE 500 MG PO (08:22)
[2025-02-24] MEDS: SUBUTEX 4 MG SL (08:22)
[2025-02-24] MEDS: OXYCONTIN (CONTROLLED RELEASE) 20 MG PO (08:23)
[2025-02-24] MEDS: COLACE PO ×2 (08:25→20:02)
[2025-02-24] MEDS: MIRALAX PO (08:26)
[2025-02-24] MEDS: SENOKOT PO ×2 (08:26→20:02)
--- NOTE | 2025-02-24 08:55 | W.PN.INTV ---
Today's Communication / Plan
Recommendations
- Increase carvedilol to 25 mg p.o. twice daily, given extra dose of 12.5 p.o. this morning
- Increase frequency of as needed labetalol and as needed hydralazine to every 4 as needed
- Change holding parameters for clonidine to 120 systolic
- If continues to do well, tentative transferred to telemetry
- Once patient transferred out of ICU, assistant import manager service will sign off
Assessment
-
Patient is a 50-year-old gentleman who was readmitted to the hospitalist service on 02/20 with concern for opioid withdrawal. He was also noted to have high blood pressure. He was admitted to the hospital and was started on buprenorphine protocol
and opioid withdrawal was managed with gradual improvement. Patient however continued to stay hypertensive and was on multiple antihypertensive medications. Today he was noted to be severely hypertensive with systolic above 200 at which point he
was started on Cardene infusion and was transferred to ICU. Vulcanizer consultation was requested for further input regarding hypertensive urgency.
Patient has prior history of thalamic hemorrhage complicated by prolonged respiratory failure requiring tracheostomy and a long length of stay in the hospital. Patient is s/p KARATE TEACHER shunt since with unequal ventricle sizes.
#1. Hypertensive urgency, systolic noted to be above 200.
- Patient was transferred to ICU, had been on Cardene infusion. Weaned off Cardene infusion since 02/23
- Continue current medication including carvedilol, losartan, as needed hydralazine and as needed labetalol. Increase Coreg to 25 mg p.o. twice daily.
- Continue as needed labetalol and hydralazine, 10 mg every 4 hours as needed for systolic above 170
- Nephrology service consulted
- Renal function normal, CT head without any acute change
- Tentative transfer to telemetry today.
#2. Opioid use disorder with opioid withdrawal this admission.
- Patient currently appears calm, awake, alert and interactive.
- Does not seem to be in active opioid withdrawal at present.
- Currently on buprenorphine micro dosing protocol.
- Continue COWS monitoring
- Clonidine p.o. TID with holding parameters
#3. History of left thalamic intracranial hemorrhage (01/2024)
- CT head reviewed, no acute changes this admission
- History of a 3-month hospitalization at [facility], s/p tracheostomy, subsequently decannulated
- Patient is s/p KARATE TEACHER shunt placement
Other medical diagnoses:
- Left lower extremity cellulitis, currently on ceftriaxone
- Microscopic hematuria, follow-up CT abdomen pelvis suggestive of nephrolithiasis
- Morbid obesity, might have underlying sleep disordered breathing, outpatient workup
DVT prophylaxis with subcu Lovenox
Critical Care time 45 mins -- The patient is admitted for acute critical illness for the treatment of vital organ failure and/or prevention of further life-threatening conditions. Total care includes time spent in review of history, physical exam,
medications, hemodynamic/ventilator parameters, laboratory data, imaging and discussion with house staff, pharmacy, respiratory therapy, inner diameter grinder tool, and nursing.
Data:
CT Abd/Pelvis 01/2025: 2 small nephroliths within the posterior upper pole the right kidney. As described, evidence for blood products/hematoma within the calyces of the upper pole of the right kidney.
Wall of the urinary bladder appears mildly diffusely thickened, which may be on the basis of incomplete distention, but correlate clinically to exclude cystitis.
Mild hepatomegaly with no focal hepatic lesion.
Thickening of the wall the duodenum extending from the duodenal bulb contiguously through the distal third portion, with stranding of the adjacent fat. Main differential considerations of primary duodenitis, versus reactive duodenitis from
pancreatitis. There is mild stranding of the fat adjacent to the pancreatic head with no focal collection.
Mild to moderate subcutaneous edema greatest in the lateral flanks.
CT head 01/2025: There is a ventricular shunt present which enters from the right superior frontal region, with tip of the shunt to the junction of the inferior frontal horn of the right lateral ventricle and the third ventricle.
There is decreased size of the right lateral ventricle when compared to the left, and slight shift of the septum pellucidum toward the left, and findings suggest peripheral arterial shunting of the right lateral ventricle when compared to the left.
There is no evidence of acute intracranial hemorrhage.
In the inferior aspect of the left thalamus, there is a small focal area of decreased density measuring 1.5 cm transverse by 0.8 cm AP, compatible with encephalomalacia from previous region of intracranial hemorrhage.
No abnormal extra-axial collection is identified.
There is 80% opacification of the sphenoid sinus, slightly improved from previous examination. The rest of the paranasal sinuses appear clear. The mastoid air cells appear clear.
Subjective Dataa
Subjective Data
Date of Service:
Date of Service: February 24, 2025
Subjective:
Patient comfortably sitting in bed in no acute distress.
Review of Systems
Genitourinary: Other (No new symptoms reported.)
Objective Data
Data Reviewed
Vital Signs / I&O / Oxygen:
Vital Signs
Temp Pulse Resp BP Pulse Ox
98.6 F 67 17 182/97 96
02/24/25 03:06 02/24/25 06:10 02/24/25 06:04 02/24/25 08:46 02/24/25 06:04
Intake and Output
02/23/25 02/24/25 02/25/25
06:59 06:59 06:59
Intake Total 2005.0 / 2055.0 1692.5 / 1692.5
Output Total 2625 / 2625 2300 / 2300
Balance -620.0 / -570.0 -607.5 / -607.5
SaO2 96
Nasal Cannula flow liters per 2
minute
Physical Exam
General: Comfortable
HEENT: Normocephalic
Cardiovascular: S1-S2
Respiratory: Clear
GI: Soft and Non Distended
Neurology: Awake and Alert
Skin: Warm
Labs/Micro/Reports
Lab Data
02/24/25 03:07
02/24/25 03:07
Microbiology
02/20/25 21:16 Nose MRSA Screen - Final
No Methicillin Resistant Staphylococcus aureus isolated.
--- NOTE | 2025-02-24 09:13 | W.PN.HOSP.TC ---
Today's Communication/Plan
-
Change antibiotics to cefazolin
PT consult
Continue local wound care
Transfer out of ICU
Assessment / Plan
Assessment / Plan
Gen-AAOx3, NAD
HEENT-NC, AT, anicteric, clear oral mm
Neck-supple
CV-reg, no M, +S1/S2
Lungs-clear B/L
Abd-soft, NT, ND
Ext-bilateral lower extremity edema
Musculoskeletal-no cyanosis, clubbing
Skin-bilateral lower extremity hyperpigmentation and lichenification
Neuro-right hemiparesis
Psych-calm, cooperative
Hypertensive urgency
BP 219 /102 better
Continue Coreg 12.5 twice daily, losartan, clonidine
(Increased dose of losartan to 100 mg and clonidine 0.1 made TID )
Would want to avoid calcium channel blockers because of chronic lower extremity edema
Possibly secondary to drug withdrawal contributing to elevated blood pressure
Off Cardene drip. Oral antihypertensives titrated up.
Nephrology eval appreciated
Renin angiotensin aldosterone ordered
Cellulitis left lower extremity
Has tolerated cefepime in the past
Has been on ceftriaxone since February 21.
Will change antibiotics to cefazolin. Cellulitis appears improved compared to images from wound care.
Wound care has been consulted
Opiate use disorder with acute withdrawal
COWS score to be followed
BCARES referral patient refused now he may need someone to follow-up in the community to enroll him to a Suboxone clinic.
Patient was agreeable to start micro dosing protocol instead of the traditional which will decrease the symptoms.
Tolerating that.
History of CVA-left thalamus measuring at least 2.5 cm bleed 01/07/24. Transferred to [place] . Pt says he was there for 3 months and has weakness of right side and facial droop Get records- ( ordered) current CT without any acute changes.
Leukocytosis- elevated since 2008 labs here, improved.
Hypokalemia-replace
Chronic back pain
Morbid obesity with a BMI of 39
History of nephrolithiasis -CT scan demonstrates 2 small nephroliths in upper pole of the right kidney. Blood products and hematoma within the calyces of the upper pole of the right kidney. Recommend outpatient follow-up with urology. Discussed
with patient. Hematuria noted on urinalysis without signs of infection.
Possible sleep apnea-needs outpatient study as OP
ADHD
Hepatic steatosis per prior imaging
Active smoker-cessation counseling
DVT prophylaxis-Lovenox
Full code
Anticipated Discharge: 24 - 48 hours
Subjective/Interval History
-
Date of Service: February 24, 2025
Seen and examined. Complaining of pain in both legs.
Objective Data
-
Labs:
Laboratory Results
02/24/25
03:07
WBC 10.6
Hgb 13.4
Hct 40.1
Plt Count 348
Sodium 140
Potassium 4.1
Chloride 107
Carbon Dioxide 30
BUN 20
Creatinine 0.8
Glucose 102 H
Calcium 9.3
Vital Signs:
Vital Signs
Temp Pulse Resp BP Pulse Ox
98.6 F 67 17 196/106 96
02/24/25 03:06 02/24/25 06:10 02/24/25 06:04 02/24/25 09:02 02/24/25 06:04
I&O
02/23/25 02/24/25 02/25/25
06:59 06:59 06:59
Intake Total 2004.0 / 5.0 1692.5 / 1692.5
Output Total 2624 / 2625 2300 / 2300
Balance -620.0 / -570.0 -607.5 / -607.5
Review of Systems
-
History Source: Patient
All other systems: Reviewed and negative
[2025-02-24] MEDS: HYDROPHOR 1 APPLIC TOPICAL (09:41)
[2025-02-24] MEDS: DAKIN'S SOLUTION 0.125% 1/4 STRENGTH 30 ML TOPICAL (09:41)
[2025-02-24] MEDS: DESENEX/MITRAZOL/ZEASORB 1 APPLIC TOPICAL ×2 (09:42→20:00)
--- NOTE | 2025-02-24 09:54 | PTCARENOTE ---
Received pt sleeping.Awakens to voice.Speech is appropriate.+FLORES.Repositions self without difficulty.c/o 9/10 bl leg pain.Received scheduled pain medication as ordered.Pt declines getting oob at this time.SR noted.0846 BP 181/97.Received
Apresoline.Dr Bethea made aware.Additional Coreg dose given as ordered.BP 161/65 at this time.Decreased breath sound throughout.POX 96% on RA.Appetite good.No BM.Pt declines all bowel medication stating ' I don't like them'.Pt encouraged to take
bowel medications as ordered.Voiding yellow urine.Skin integrity as documented.Wound care completed as ordered.Plan of care discussed with pt.
[2025-02-24] MEDS: ANCEF 5 IV ×3 (10:59→23:58)
--- NOTE | 2025-02-24 11:13 | W.PN.NEPH.PH ---
Today's Communication / Plan
-
see plan
add spironolactone
coreg increassed
Assessment/Plan
-
IMP:
Cellulitis left lower extremity
Hypertensive urgency
Opiate abuse with withdrawal
Microscopic hematuria, Albuminuria noted in the urine
History of CVA-left thalamus measuring at least 2.5 cm bleed 01/07/24. ventricular shunt
Leukocytosis- elevated since 2008 labs
Chronic back pain
Morbid obesity with a BMI of 39
History of nephrolithiasis
Possible sleep apnea-needs outpatient study asleep
ADHD
Hepatic steatosis per prior imaging
Active smoker
Plan:
a/w Opiate withdrawal
Hypertensive urgency with baseline uncontrolled hypertension
Reviewing his old records blood pressure always seem to be elevated
remains off cardene gtt, may need to start back if needed
clonidine 0.1mg 3x a day,
Losartan increased 100 mg daily
carvedilol increased to 25mg twice a day, prn labetalol, hydralazine
will add aldactone
avoid drastic blood pressure changes
Did not see secondary workup in the past, this can be considered however lab results may not be accurate in setting of withdrawal, pending ARR
He maintained his normal renal function however noted microscopic hematuria and albuminuria
Known history of kidney stones, CT shows right kidney stone with blood-need to see outpt
Check urine PCR-1gm/gm of cr could be hyperfiltration from HTN-monitor out pt
Discussed with the patient
-
-
Date of Service: February 24, 2025
CC / HPI / ROS
-
Chief Complaint:
HTN urgency
History of Present Illness:
k better at 4.1, BP increasing trend, off cardene since yesterday
no fever, cr 0.8 stable
Review of Systems:
c/o BURRIS
no sob
no dysuria or hematuria, non oliguric
Labs
-
Labs:
WBC 10.6 10^3/uL (4.8-10.8) 02/24/25 03:07
RBC 4.87 10^6/uL (4.70-6.10) 02/24/25 03:07
Hgb 13.4 g/dL (13.0-18.0) 02/24/25 03:07
Hct 40.1 % (39.0-52.0) 02/24/25 03:07
Plt Count 348 10^3/uL (130-400) 02/24/25 03:07
Sodium 140 mmol/L (135-145) 02/24/25 03:07
Potassium 4.1 mmol/L (3.5-5.1) 02/24/25 03:07
Chloride 107 mmol/L (98-107) 02/24/25 03:07
Carbon Dioxide 30 mmol/L (22-30) 02/24/25 03:07
BUN 20 mg/dl (9-20) 02/24/25 03:07
Creatinine 0.8 mg/dL (0.7-1.3) 02/24/25 03:07
eGFR > 60.00 02/24/25 03:07
Glucose 102 mg/dl (70-99) H 02/24/25 03:07
Calcium 9.3 mg/dl (8.4-10.2) 02/24/25 03:07
Albumin 4.2 g/dl (3.5-5.0) 02/22/25 05:07
Physical Exam
-
Vital Signs:
Vital Signs
Temp Pulse Resp BP Pulse Ox
98.6 F 67 17 196/106 96
02/24/25 03:06 02/24/25 06:10 02/24/25 06:04 02/24/25 09:02 02/24/25 06:04
Cardiovascular:: Regular rate and rhythm
Respiratory:: Bilateral: Coarse
Lung Excursion:: Normal
Abdomen:: Nontender and Soft
Extremity Edema:: +2: Bilateral:
Cheng Catheter: No
[2025-02-24] MEDS: ALDACTONE 12.5 MG PO (12:05)
--- NOTE | 2025-02-24 12:23 | PTCARENOTE ---
Pt assessed.No change in assessment noted.
--- NOTE | 2025-02-24 14:00 | PTCARENOTE ---
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
is unchanged from ED EKG.NSS infusing as ordered.Coarse breath sounds throughout.+ tachypnea,orthopnea and RAMIREZ noted.O2 4l NC.POX 97%Voice is wet with occasional non productive cough.No BM.No void at this time.Skin integrity as documented.Pt's
daughter at bedside.Plan of care discussed.
--- NOTE | 2025-02-24 16:20 | PTCARENOTE ---
Pt assessed.No change in assessment noted.Continent for smear BM.
[2025-02-24] MEDS: LOVENOX 40 MG SC (18:30)
[2025-02-24] MEDS: SUBUTEX 8 MG SL (19:59)
[2025-02-24] MEDS: COREG 25 MG PO (19:59)
--- NOTE | 2025-02-24 20:00 | PTCARENOTE ---
Received pt. at 1900. Pt. currently in bed. Awake, alert, and oriented. C/o pain, PRN medication given, see MAR. Afebrile. Heart rhythm sinus. Pt. experiencing hypertension. Scheduled and PRN medication on board, see MAR. Currently on room air.
Lungs sound diminished. PO diet, good appetite. Voiding in urinal without issue. Skin as documented. Vital signs stable at this time.
[2025-02-25] VITALS (22 sets, daily range): BP systolic 127–197; BP diastolic 66–115; PULSE 74–77; O2SAT 92; BMI 33.2
[2025-02-25] MEDS: APRESOLINE 10 MG IV ×2 (04:01→06:07)
[2025-02-25] MEDS: ROXICODONE 20 MG PO ×4 (04:01→19:55)
[2025-02-25 04:20] LABS: Hematocrit 38.5 % (39.0-52.0); Hemoglobin 12.7 g/dL (13.0-18.0); Mean Corpuscular Hgb 27.3 pg (27.0-31.0); Mean Corpuscular Volume 82.6 fL (80.0-94.0); Mean Platelet Volume 9.4 fL (7.4-10.4); Platelet Count 321 10^3/uL (130-400); Red Blood Cell Count 4.66 10^6/uL (4.70-6.10); Red Cell Dist. Width 14.5 % (11.5-14.5)
[2025-02-25 04:49] LABS: Blood Urea Nitrogen 18 mg/dl (9-20); Calcium 9.1 mg/dl (8.4-10.2); Carbon Dioxide 28 mmol/L (22-30); Chloride 107 mmol/L (98-107); Estimated Creatinine Clearance > 125 ml/min; Glucose 102 mg/dl (70-99); Potassium 3.9 mmol/L (3.5-5.1); Sodium 140 mmol/L (135-145); eGFR > 60.00
[2025-02-25] MEDS: TRANDATE 10 MG IV (05:08)
[2025-02-25] MEDS: DILAUDID 0.5 MG IV (05:22)
--- NOTE | 2025-02-25 06:20 | PTCARENOTE ---
Pt. with persistent hypertension. PRN medications given, pt. remains hypertensive. Spoke with DENTAL TREATMENT COORDINATOR. Additional dose of IV hydralazine ordered and administered.
[2025-02-25] MEDS: COREG 25 MG PO ×2 (08:16→19:51)
[2025-02-25] MEDS: ANCEF 5 IV ×3 (08:17→23:10)
[2025-02-25] MEDS: ALDACTONE 12.5 MG PO (08:18)
[2025-02-25] MEDS: COZAAR 100 MG PO (08:18)
[2025-02-25] MEDS: MAGNESIUM OXIDE 500 MG PO (08:18)
[2025-02-25] MEDS: SUBUTEX 8 MG SL (08:19)
[2025-02-25] MEDS: CATAPRES 0.1 MG PO ×3 (08:19→21:24)
[2025-02-25] MEDS: MIRALAX 17 GRAMS PO (08:19)
[2025-02-25] MEDS: SENOKOT PO ×2 (08:20→19:48)
[2025-02-25] MEDS: DESENEX/MITRAZOL/ZEASORB 1 APPLIC TOPICAL ×2 (08:20→19:47)
[2025-02-25] MEDS: TYLENOL 1000 MG PO ×3 (08:20→23:09)
[2025-02-25] MEDS: HYDROPHOR 1 APPLIC TOPICAL (08:20)
[2025-02-25] MEDS: COLACE 100 MG PO ×2 (08:21→19:47)
[2025-02-25] MEDS: DAKIN'S SOLUTION 0.125% 1/4 STRENGTH 1 ML TOPICAL (08:21)
--- NOTE | 2025-02-25 08:45 | W.PN.HOSP.TC ---
Today's Communication/Plan
-
PT consult
Assessment / Plan
Assessment / Plan
Gen-AAOx3, NAD
HEENT-NC, AT, anicteric, clear oral mm
Neck-supple
CV-reg, no M, +S1/S2
Lungs-clear B/L
Abd-soft, NT, ND
Ext-bilateral lower extremity edema
Musculoskeletal-no cyanosis, clubbing
Skin-bilateral lower extremity Brody wraps
Neuro-right hemiparesis
Psych-calm, cooperative
Hypertensive urgency/essential hypertension -blood pressure improving.
Continue Coreg, losartan, clonidine, spironolactone
(Increased dose of losartan to 100 mg and clonidine 0.1 made TID )
Would want to avoid calcium channel blockers because of chronic lower extremity edema
Possibly secondary to drug withdrawal contributing to elevated blood pressure
Off Cardene drip. Oral antihypertensives titrated up.
Nephrology eval appreciated
Renin angiotensin aldosterone ordered, results pending.
Cellulitis left lower extremity
Has tolerated cefepime in the past
Has been on ceftriaxone since February 21, changed to cefazolin February 24. Cellulitis appears improved compared to images from wound care.
Wound care has been consulted
Opiate use disorder with acute withdrawal -symptoms improving. Currently on buprenorphine.
COWS score to be followed
BCARES referral patient refused now he may need someone to follow-up in the community to enroll him to a Suboxone clinic.
Patient was agreeable to start micro dosing protocol instead of the traditional which will decrease the symptoms.
Tolerating that.
History of CVA-left thalamus measuring at least 2.5 cm bleed 01/07/24. Transferred to [place] . Pt says he was there for 3 months and has weakness of right side and facial droop Get records- ( ordered) current CT without any acute changes.
Leukocytosis-resolved.
Hypokalemia -resolved.
Chronic back pain
Morbid obesity with a BMI of 39
History of nephrolithiasis -CT scan demonstrates 2 small nephroliths in upper pole of the right kidney. Blood products and hematoma within the calyces of the upper pole of the right kidney. Recommend outpatient follow-up with urology. Discussed
with patient. Hematuria noted on urinalysis without signs of infection.
Possible sleep apnea-needs outpatient study as OP
ADHD
Hepatic steatosis per prior imaging
Active smoker-cessation counseling
DVT prophylaxis-Lovenox
Full code
PT consult
Anticipated Discharge: 24 - 48 hours
Subjective/Interval History
-
Date of Service: February 25, 2025
Patient seen and examined. Complaining of pain in both legs.
Objective Data
-
Labs:
Laboratory Results
02/25/25
04:06
WBC 8.0
Hgb 12.7 L
Hct 38.5 L
Plt Count 321
Sodium 140
Potassium 3.9
Chloride 107
Carbon Dioxide 28
BUN 18
Creatinine 0.8
Glucose 102 H
Calcium 9.1
Vital Signs:
Vital Signs
Temp Pulse Resp BP Pulse Ox
98.6 F 74 13 149/90 95
02/25/25 08:10 02/25/25 08:19 02/25/25 06:30 02/25/25 08:19 02/25/25 06:30
I&O
02/24/25 02/25/25 02/26/25
06:59 06:59 06:59
Intake Total 1692.5 / 1692.5 1530 / 1530
Output Total 2300 / 2300 2155 / 2155 600 / 600
Balance -607.5 / -607.5 -625 / -625 -600 / -600
Review of Systems
-
History Source: Patient
All other systems: Reviewed and negative
--- NOTE | 2025-02-25 09:48 | PTCARENOTE ---
Hospitalist round for morning update. Telemetry status maintained. PT and OT working with patient at bedside will follow up medications via emar. Follow up bed availability. Continue to update plan of cares. Reinforce teaching thru shift. Supportive
cares ongoing.
--- NOTE | 2025-02-25 10:23 | W.PN.NEPH.PH ---
Today's Communication / Plan
-
Increase Aldactone
Assessment/Plan
-
IMP:
Cellulitis left lower extremity
Hypertensive urgency
Opiate abuse with withdrawal
Microscopic hematuria, Albuminuria noted in the urine
History of CVA-left thalamus measuring at least 2.5 cm bleed 01/07/24. ventricular shunt
Leukocytosis- elevated since 2008 labs
Chronic back pain
Morbid obesity with a BMI of 39
History of nephrolithiasis
Possible sleep apnea-needs outpatient study asleep
ADHD
Hepatic steatosis per prior imaging
Active smoker
Plan:
a/w Opiate withdrawal
Hypertensive urgency with baseline uncontrolled hypertension
Reviewing his old records blood pressure always seem to be elevated
remains off cardene gtt,
clonidine 0.1mg 3x a day,
Losartan increased 100 mg daily
carvedilol increased to 25mg twice a day, prn labetalol, hydralazine
will add aldactone 02/24
Did not see secondary workup in the past, this can be considered however lab results may not be accurate in setting of withdrawal, pending ARR
He maintained his normal renal function however noted microscopic hematuria and albuminuria
Known history of kidney stones, CT shows right kidney stone with blood-need to see outpt
Blood pressure improved with addition of Aldactone low-dose. Still room for improvement so increase to 25 mg
Total Time Spent with Patient (in minutes): 33
-
-
Date of Service: February 25, 2025
CC / HPI / ROS
-
Chief Complaint:
HTN urgency
History of Present Illness:
Blood pressure improved
no fever, cr 0.8 stable
Review of Systems:
c/o BURRIS
no sob
no dysuria or hematuria, non oliguric
Labs
-
Labs:
WBC 8.0 10^3/uL (4.8-10.8) 02/25/25 04:06
RBC 4.66 10^6/uL (4.70-6.10) L 02/25/25 04:06
Hgb 12.7 g/dL (13.0-18.0) L 02/25/25 04:06
Hct 38.5 % (39.0-52.0) L 02/25/25 04:06
Plt Count 321 10^3/uL (130-400) 02/25/25 04:06
Sodium 140 mmol/L (135-145) 02/25/25 04:06
Potassium 3.9 mmol/L (3.5-5.1) 02/25/25 04:06
Chloride 107 mmol/L (98-107) 02/25/25 04:06
Carbon Dioxide 28 mmol/L (22-30) 02/25/25 04:06
BUN 18 mg/dl (9-20) 02/25/25 04:06
Creatinine 0.8 mg/dL (0.7-1.3) 02/25/25 04:06
eGFR > 60.00 02/25/25 04:06
Glucose 102 mg/dl (70-99) H 02/25/25 04:06
Calcium 9.1 mg/dl (8.4-10.2) 02/25/25 04:06
Albumin 4.2 g/dl (3.5-5.0) 02/22/25 05:07
Physical Exam
-
Vital Signs:
Vital Signs
Temp Pulse Resp BP Pulse Ox
98.6 F 85 15 153/108 94
02/25/25 08:10 02/25/25 10:00 02/25/25 10:00 02/25/25 09:46 02/25/25 10:00
Cardiovascular:: Regular rate and rhythm
Respiratory:: Bilateral: Coarse
Lung Excursion:: Normal
Abdomen:: Nontender and Soft
Extremity Edema:: +2: Bilateral:
Cheng Catheter: No
--- NOTE | 2025-02-25 10:40 | PTCARENOTE ---
Patient return back to bed, one person assist. States its too much to sit up to long. Reinforce mobility importance, ambulation importance, and alternate pain relief measures. Tolerates being in chair for short periods of time. Will follow up again
with PT on rounds. Continue to reinforce teaching and reinforce plan of cares. 100% breakfast taken. Medications with follow up with emar and pharmacy. Call finley in reach and in use as needed. Hourly rounds and safety checks on going.
--- NOTE | 2025-02-25 12:18 | CM ---
Patient participated in therapy today. Not at baseline. Indication is for SNF prior to returning home. Patient also with significant substance abuse issues.
Plan: Case management will continue to follow and assist with discharge planning. If patient gets closer to baseline level of functioning, substance abuse resources if agreeable.
[2025-02-25] MEDS: ZANAFLEX 2 MG PO (13:44)
--- NOTE | 2025-02-25 13:59 | PTCARENOTE ---
Assessment unchanged. Patient sleeping when not disturbed or watching tv. When awake he request pain medication for bilateral leg pain and back pain. VSS as documented. Follow up skin cares/wound cares, jess wraps on at present assessment. Spent hour
and a half in chair. Continue to reinforce plan of cares, reinforce teaching and medication schedule. Call finley in reach and in use as needed. Hourly rounds ongoing.
--- NOTE | 2025-02-25 17:40 | PTCARENOTE ---
1730 Pt transferred from ICU via bed. Alert and verbalizing. Place on heart monitor (Normal Sinus) heart rate 70's to 80's, VS stable.
Oriented pt to room and place nurse call finley within reach, continue to monitor pt closely.
[2025-02-25] MEDS: LOVENOX 40 MG SC (19:45)
[2025-02-25 19:50] LABS: Aldosterone, Serum <3.0 ng/dL; Aldosterone/Renin Activ Ratio <1.0 ratio (<=25.0); Renin Activity Results 2.9 ng/mL/hr
[2025-02-26] VITALS (8 sets, daily range): BP systolic 131–171; BP diastolic 78–102; PULSE 75; O2SAT 94
[2025-02-26] MEDS: ROXICODONE 20 MG PO ×5 (02:10→21:52)
[2025-02-26] MEDS: MIRALAX PO ×2 (09:16→09:44)
[2025-02-26] MEDS: ANCEF 5 IV (09:17)
[2025-02-26] MEDS: COZAAR 100 MG PO (09:17)
[2025-02-26] MEDS: SENOKOT PO ×4 (09:17→20:25)
[2025-02-26] MEDS: MAGNESIUM OXIDE 500 MG PO (09:17)
[2025-02-26] MEDS: ALDACTONE 25 MG PO (09:18)
[2025-02-26] MEDS: COLACE 100 MG PO (09:18)
[2025-02-26] MEDS: COREG 25 MG PO ×2 (09:19→20:23)
[2025-02-26] MEDS: CATAPRES 0.1 MG PO ×3 (09:19→21:52)
[2025-02-26] MEDS: DESENEX/MITRAZOL/ZEASORB 1 APPLIC TOPICAL ×2 (09:19→20:23)
[2025-02-26] MEDS: HYDROPHOR 1 APPLIC TOPICAL (09:19)
[2025-02-26] MEDS: TYLENOL 1000 MG PO ×2 (09:20→17:22)
[2025-02-26] MEDS: SUBUTEX 8 MG SL (10:11)
--- NOTE | 2025-02-26 11:11 | W.PN.HOSP.TC ---
Today's Communication/Plan
-
Discharge planning
Assessment / Plan
Assessment / Plan
Gen-AAOx3, NAD, obese
HEENT-NC, AT, anicteric, clear oral mm
Neck-supple
CV-reg, no M, +S1/S2
Lungs-clear B/L
Abd-soft, NT, ND
Ext-bilateral lower extremity edema
Musculoskeletal-no cyanosis, clubbing
Skin-bilateral lower extremity Brody wraps
Neuro-right hemiparesis
Psych-calm, cooperative
Hypertensive urgency/essential hypertension -blood pressure improving.
Continue Coreg, losartan, clonidine, spironolactone
(Increased dose of losartan to 100 mg and clonidine 0.1 made TID )
Would want to avoid calcium channel blockers because of chronic lower extremity edema
Possibly secondary to drug withdrawal contributing to elevated blood pressure
Off Cardene drip. Oral antihypertensives titrated up.
Nephrology eval appreciated
No signs of hyperaldosteronism based on labs.
Cellulitis left lower extremity
Has tolerated cefepime in the past
Convert to Keflex and complete course.
Opiate use disorder with acute withdrawal -symptoms improving. Currently on buprenorphine. Change to Suboxone on discharge. Will need to follow-up with outpatient clinic.
COWS score to be followed
[facility] referral patient refused now he may need someone to follow-up in the community to enroll him to a Suboxone clinic.
Patient was agreeable to start micro dosing protocol instead of the traditional which will decrease the symptoms.
Tolerating that.
History of CVA-left thalamus measuring at least 2.5 cm bleed 01/07/24. Transferred to [place] . Pt says he was there for 3 months and has weakness of right side and facial droop Get records- ( ordered) current CT without any acute changes.
Leukocytosis-resolved.
Hypokalemia -resolved.
Chronic back pain
Morbid obesity with a BMI of 39
History of nephrolithiasis -CT scan demonstrates 2 small nephroliths in upper pole of the right kidney. Blood products and hematoma within the calyces of the upper pole of the right kidney. Recommend outpatient follow-up with urology. Discussed
with patient. Hematuria noted on urinalysis without signs of infection.
Possible sleep apnea-needs outpatient study as OP
ADHD
Hepatic steatosis per prior imaging
Active smoker-cessation counseling
DVT prophylaxis-Lovenox
Full code
Dispo - PT is recommending SNF but patient prefers to go home. Discussed with case management. Left a voicemail for patient's daughter Any to [phone] to call me back. Tried to call patient's but did not get an answer and unable to
leave voicemail. Also left a voicemail for patient's mother. I do not believe patient will do well at home and I believe he also needs SNF.
Otherwise medically stable for discharge if we can come up with a safe discharge disposition.
Anticipated Discharge: Within 24 hours
Subjective/Interval History
-
Date of Service: February 26, 2025
Patient seen and examined. Complaining of pain in both legs.
Objective Data
-
Vital Signs:
Vital Signs
Temp Pulse Resp BP Pulse Ox
97.7 F 73 18 150/89 94
02/26/25 11:00 02/26/25 11:00 02/26/25 11:00 02/26/25 11:00 02/26/25 11:00
I&O
02/25/25 02/26/25 02/27/25
06:59 06:59 06:59
Intake Total 1530 / 1530 720 / 720
Output Total 2155 / 2155 1450 / 1450
Balance -625 / -625 -730 / -730
Review of Systems
-
History Source: Patient
All other systems: Reviewed and negative
--- NOTE | 2025-02-26 12:56 | CM ---
Addendum entered by Virgie Hoover 02/27/25 08:12:
Late entry from 02/26/25:
CM received return call from patients daughter, Any. Any reports that her father lives with his and patients grandmother in a two story home, bedroom on second floor, full flight of stairs to bedroom. Any reports her mother is
currently inpatient in rehab at [facility]. Any shared that her mother and grandmother do not want the patient to return to the home. Daughter will be in to visit patient later to discuss going to SNF, would also like father to transition to
inpatient substance use rehab after SNF. Daughter reports patient has never been to inpatient rehab for substance use disorder in the past. Daughter reports she just officially adopted her four siblings and her father and mothers rights have been
terminated. Daughter reports neither of her parents work and their means of income are from her maternal/paternal grandparents. CM discussed patient was not agreeable to SNF but was agreeable to home therapy, daughter concerned how patient will care
for himself at home if the family were to allow patient to return home.
Plan; daughter to discuss SNF with patient
Original Note:
CM reviewed chart, reviewed with Hospitalist. Patient seen bedside, discussed PT recommendation of SNF. Patient not agreeable to SNF, would be agreeable to home therapy, reports he resides in [place]. Patient reports he lives with his Xenia.
Patient reports his daughter, Any, will be coming to visit this afternoon around 6:00 p.m., agreeable to CM to call daughter. left for Any [phone] to discuss SNF recommendation.
Plan; await call from family to discuss discharge planning, SNF vs home with services, continue to offer [facility]
[2025-02-26] MEDS: KEFLEX PO (14:00)
--- NOTE | 2025-02-26 16:11 | DOWNTIME ---
There was a [employer] Downtime on 02/26/2025 from 1230 to 02/26/2025 at 1550. Downtime documentation of patient's care, including medication administrations, has been reconciled in the electronic record per guidelines. Refer to the
patient's paper chart under the miscellaneous tab to see printed paper medication records and downtime forms.
--- NOTE | 2025-02-26 16:46 | W.PN.NEPH.PH ---
Today's Communication / Plan
-
d/c plan per primary
Assessment/Plan
-
IMP:
Cellulitis left lower extremity
Hypertensive urgency
Opiate abuse with withdrawal
Microscopic hematuria, Albuminuria noted in the urine
History of CVA-left thalamus measuring at least 2.5 cm bleed 01/07/24. ventricular shunt
Leukocytosis- elevated since 2008 labs
Chronic back pain
Morbid obesity with a BMI of 39
History of nephrolithiasis
Possible sleep apnea-needs outpatient study asleep
ADHD
Hepatic steatosis per prior imaging
Active smoker
Plan:
a/w Opiate withdrawal
Hypertensive urgency with baseline uncontrolled hypertension
Reviewing his old records blood pressure always seem to be elevated
Nocturnal dip of BP, high during day still not optimal
may take time to see improvement
for now cont clonidine 0.1mg 3x a day, Losartan increased 100 mg daily
carvedilol 25mg twice a day
added aldactone 02/24 wiht good response, ARR Not significant
likely increase Aldactone dose in future if needed
He maintained his normal renal function however noted microscopic hematuria and albuminuria
Known history of kidney stones, CT shows right kidney stone with blood-need to see outpt
He need to see his PCP closely and refer to local nephrology who are covered by insurance
Our practice is not in the coverage
d/w pt in detail
-
-
Date of Service: February 26, 2025
CC / HPI / ROS
-
Chief Complaint:
HTN urgency
History of Present Illness:
Blood pressure improved but not optimal
no fever, cr 0.8 stable
Review of Systems:
no sob and no cp
no dysuria or hematuria, non oliguric
wants to go home but need SNF
Labs
-
Labs:
WBC 8.0 10^3/uL (4.8-10.8) 02/25/25 04:06
RBC 4.66 10^6/uL (4.70-6.10) L 02/25/25 04:06
Hgb 12.7 g/dL (13.0-18.0) L 02/25/25 04:06
Hct 38.5 % (39.0-52.0) L 02/25/25 04:06
Plt Count 321 10^3/uL (130-400) 02/25/25 04:06
Sodium 140 mmol/L (135-145) 02/25/25 04:06
Potassium 3.9 mmol/L (3.5-5.1) 02/25/25 04:06
Chloride 107 mmol/L (98-107) 02/25/25 04:06
Carbon Dioxide 28 mmol/L (22-30) 02/25/25 04:06
BUN 18 mg/dl (9-20) 02/25/25 04:06
Creatinine 0.8 mg/dL (0.7-1.3) 02/25/25 04:06
eGFR > 60.00 02/25/25 04:06
Glucose 102 mg/dl (70-99) H 02/25/25 04:06
Calcium 9.1 mg/dl (8.4-10.2) 02/25/25 04:06
Albumin 4.2 g/dl (3.5-5.0) 02/22/25 05:07
Physical Exam
-
Vital Signs:
Vital Signs
Temp Pulse Resp BP Pulse Ox
97.9 F 72 20 171/85 97
02/26/25 15:00 02/26/25 15:00 02/26/25 15:00 02/26/25 15:00 02/26/25 15:00
Cardiovascular:: Regular rate and rhythm
Respiratory:: Bilateral: CTA
Lung Excursion:: Normal
Abdomen:: Nontender and Soft
Extremity Edema:: +2: Bilateral:
Cheng Catheter: No
[2025-02-26] MEDS: DAKIN'S SOLUTION 0.125% 1/4 STRENGTH 1 ML TOPICAL (17:14)
[2025-02-26] MEDS: LOVENOX 40 MG SC (17:22)
[2025-02-26] MEDS: KEFLEX 500 MG PO ×2 (17:23→21:52)
[2025-02-26] MEDS: COLACE PO ×2 (20:23→20:25)
[2025-02-27] VITALS (8 sets, daily range): BP systolic 120–170; BP diastolic 71–96; PULSE 72
[2025-02-27] MEDS: TYLENOL PO (00:39)
[2025-02-27] MEDS: ROXICODONE 20 MG PO ×5 (02:20→22:09)
[2025-02-27] MEDS: CATAPRES 0.1 MG PO ×3 (08:40→22:09)
[2025-02-27] MEDS: COREG 25 MG PO ×2 (08:40→19:30)
[2025-02-27] MEDS: COZAAR 100 MG PO (08:40)
[2025-02-27] MEDS: TYLENOL 1000 MG PO ×2 (08:40→15:06)
[2025-02-27] MEDS: COLACE 100 MG PO (08:40)
[2025-02-27] MEDS: SENOKOT 17.2 MG PO (08:40)
[2025-02-27] MEDS: MIRALAX 17 GRAMS PO (08:41)
[2025-02-27] MEDS: ALDACTONE 25 MG PO ×2 (08:47→09:21)
[2025-02-27] MEDS: SUBUTEX 8 MG SL (08:48)
[2025-02-27] MEDS: KEFLEX 500 MG PO ×4 (08:48→22:09)
[2025-02-27] MEDS: MAGNESIUM OXIDE 500 MG PO (08:48)
[2025-02-27] MEDS: DESENEX/MITRAZOL/ZEASORB 1 APPLIC TOPICAL ×2 (08:51→19:31)
[2025-02-27] MEDS: DAKIN'S SOLUTION 0.125% 1/4 STRENGTH 473 ML TOPICAL (08:52)
[2025-02-27] MEDS: HYDROPHOR 1 APPLIC TOPICAL (08:53)
--- NOTE | 2025-02-27 09:30 | W.PN.HOSP.TC ---
Today's Communication/Plan
-
Discharge planning
Assessment / Plan
Assessment / Plan
Gen-AAOx3, NAD, obese
HEENT-NC, AT, anicteric, clear oral mm
Neck-supple
CV-reg, no M, +S1/S2
Lungs-clear B/L
Abd-soft, NT, ND
Ext-bilateral lower extremity edema
Musculoskeletal-no cyanosis, clubbing
Skin-bilateral lower extremity Brody wraps
Neuro-right hemiparesis
Psych-calm, cooperative
Hypertensive urgency/essential hypertension -blood pressure improving.
Continue Coreg, losartan, clonidine, spironolactone
(Increased dose of losartan to 100 mg and clonidine 0.1 made TID )
Would want to avoid calcium channel blockers because of chronic lower extremity edema
Possibly secondary to drug withdrawal contributing to elevated blood pressure
Off Cardene drip. Oral antihypertensives titrated up.
Nephrology eval appreciated
No signs of hyperaldosteronism based on labs.
Cellulitis left lower extremity -started IV antibiotics on 02/21.
Has tolerated cefepime in the past
Convert to Keflex and complete course. Last day will be March 01.
Opiate use disorder with acute withdrawal -symptoms improving. Currently on buprenorphine. Change to Suboxone on discharge. Will need to follow-up with outpatient clinic.
COWS score to be followed
[facility] referral patient refused now he may need someone to follow-up in the community to enroll him to a Suboxone clinic.
Patient was agreeable to start micro dosing protocol instead of the traditional which will decrease the symptoms.
Tolerating that.
History of CVA-left thalamus measuring at least 2.5 cm bleed 01/07/24. Transferred to [place] . Pt says he was there for 3 months and has weakness of right side and facial droop, current CT without any acute changes.
Leukocytosis-resolved.
Hypokalemia -resolved.
Chronic back pain
Morbid obesity with a BMI of 39
History of nephrolithiasis -CT scan demonstrates 2 small nephroliths in upper pole of the right kidney. Blood products and hematoma within the calyces of the upper pole of the right kidney. Recommend outpatient follow-up with urology. Discussed
with patient. Hematuria noted on urinalysis without signs of infection.
Possible sleep apnea-needs outpatient study as OP
ADHD
Hepatic steatosis per prior imaging
Active smoker-cessation counseling
DVT prophylaxis-Lovenox
Full code
Dispo -family agreeable to SNF. Medically stable for discharge. Case management aware.
Anticipated Discharge: Within 24 hours
Subjective/Interval History
-
Date of Service: February 27, 2025
Patient seen and examined. Complaining of some left lower extremity pain.
Objective Data
-
Vital Signs:
Vital Signs
Temp Pulse Resp BP Pulse Ox
98.0 F 66 18 160/86 95
02/27/25 07:00 02/27/25 07:00 02/27/25 07:00 02/27/25 07:00 02/27/25 07:00
I&O
02/26/25 02/27/25 02/28/25
06:59 06:59 06:59
Intake Total 720 / 720 1180 / 1180
Output Total 1450 / 1450 1950 / 1950
Balance -730 / -730 -770 / -770
Review of Systems
-
History Source: Patient
All other systems: Reviewed and negative
--- NOTE | 2025-02-27 12:37 | CM ---
CM reviewed chart, patient seen bedside, agreeable to referrals to [facility]. Patient looking to stay in [facility], will require insurance auth. Patient reports his daughter will be coming to visit today. Multiple referrals placed, will
update patient once accepting facility found. CM will continue to follow for all discharge planning needs.
Plan; SNF once accepting facility found, will require auth
--- NOTE | 2025-02-27 13:24 | W.PN.NEPH.PH ---
Today's Communication / Plan
-
increase spironolactone to 50mg daily
Assessment/Plan
-
IMP:
Cellulitis left lower extremity
Hypertensive urgency
Opiate abuse with withdrawal
Microscopic hematuria, Albuminuria noted in the urine
History of CVA-left thalamus measuring at least 2.5 cm bleed 01/07/24. ventricular shunt
Leukocytosis- elevated since 2008 labs
Chronic back pain
Morbid obesity with a BMI of 39
History of nephrolithiasis
Possible sleep apnea-needs outpatient study asleep
ADHD
Hepatic steatosis per prior imaging
Active smoker
Plan:
a/w Opiate withdrawal
Hypertensive urgency with baseline uncontrolled hypertension
Reviewing his old records blood pressure always seem to be elevated
Nocturnal dip of BP, high during day still not optimal, increase spironolactone to 50mg
for now cont clonidine 0.1mg 3x a day, Losartan increased 100 mg daily
carvedilol 25mg twice a day
He maintained his normal renal function however noted microscopic hematuria and albuminuria
Known history of kidney stones, CT shows right kidney stone with blood-need to see outpt
He need to see his PCP closely and refer to local nephrology who are covered by insurance
Our practice is not in the coverage
d/w pt in detail
need SNF palcement
-
-
Date of Service: February 27, 2025
CC / HPI / ROS
-
Chief Complaint:
HTN urgency
History of Present Illness:
Blood pressure improved but not optimal
no fever, cr 0.8 stable
no labs today
Review of Systems:
no sob and no cp
no dysuria or hematuria, non oliguric
wants to go home but need SNF
Labs
-
Labs:
WBC 8.0 10^3/uL (4.8-10.8) 02/25/25 04:06
RBC 4.66 10^6/uL (4.70-6.10) L 02/25/25 04:06
Hgb 12.7 g/dL (13.0-18.0) L 02/25/25 04:06
Hct 38.5 % (39.0-52.0) L 02/25/25 04:06
Plt Count 321 10^3/uL (130-400) 02/25/25 04:06
Sodium 140 mmol/L (135-145) 02/25/25 04:06
Potassium 3.9 mmol/L (3.5-5.1) 02/25/25 04:06
Chloride 107 mmol/L (98-107) 02/25/25 04:06
Carbon Dioxide 28 mmol/L (22-30) 02/25/25 04:06
BUN 18 mg/dl (9-20) 02/25/25 04:06
Creatinine 0.8 mg/dL (0.7-1.3) 02/25/25 04:06
eGFR > 60.00 02/25/25 04:06
Glucose 102 mg/dl (70-99) H 02/25/25 04:06
Calcium 9.1 mg/dl (8.4-10.2) 02/25/25 04:06
Albumin 4.2 g/dl (3.5-5.0) 02/22/25 05:07
Physical Exam
-
Vital Signs:
Vital Signs
Temp Pulse Resp BP Pulse Ox
97.6 F 71 18 170/96 95
02/27/25 11:00 02/27/25 11:00 02/27/25 11:00 02/27/25 11:00 02/27/25 11:00
Cardiovascular:: Regular rate and rhythm
Respiratory:: Bilateral: CTA
Lung Excursion:: Normal
Abdomen:: Nontender and Soft
Extremity Edema:: +2: Bilateral:
Cheng Catheter: No
[2025-02-27] MEDS: LOVENOX 40 MG SC (17:42)
[2025-02-27] MEDS: SENOKOT PO (19:30)
[2025-02-27] MEDS: COLACE PO (19:30)
[2025-02-28] MEDS: TYLENOL 1000 MG PO ×3 (00:11→17:42)
[2025-02-28] MEDS: ROXICODONE 20 MG PO ×5 (06:12→22:26)
[2025-02-28 07:55] VITALS: BP 156/93
--- NOTE | 2025-02-28 09:54 | W.PN.NEPH.PH ---
Today's Communication / Plan
-
Continue current medications okay for discharge and follow-up with outpatient nephrology
Assessment/Plan
-
IMP:
Cellulitis left lower extremity
Hypertensive urgency
Opiate abuse with withdrawal
Microscopic hematuria, Albuminuria noted in the urine
History of CVA-left thalamus measuring at least 2.5 cm bleed 01/07/24. ventricular shunt
Leukocytosis- elevated since 2008 labs
Chronic back pain
Morbid obesity with a BMI of 39
History of nephrolithiasis
Possible sleep apnea-needs outpatient study asleep
ADHD
Hepatic steatosis per prior imaging
Active smoker
Plan:
a/w Opiate withdrawal
Hypertensive urgency with baseline uncontrolled hypertension
Reviewing his old records blood pressure always seem to be elevated
Nocturnal dip of BP, high during day still not optimal,
for now cont clonidine 0.1mg 3x a day, Losartan increased 100 mg daily
carvedilol 25mg twice a day
He maintained his normal renal function however noted microscopic hematuria and albuminuria
Known history of kidney stones, CT shows right kidney stone with blood-need to see outpt
He need to see his PCP closely and refer to local nephrology who are covered by insurance
Our practice is not in the coverage
d/w pt in detail
need SNF palcement
Spironolactone increased to 50 mg yesterday continue to trend
-
-
Date of Service: February 28, 2025
CC / HPI / ROS
-
Chief Complaint:
HTN urgency
History of Present Illness:
Blood pressure improved but not optimal
no fever, cr 0.8 stable
no labs today
Review of Systems:
no sob and no cp
no dysuria or hematuria, non oliguric
wants to go home but need SNF
Labs
-
Labs:
WBC 8.0 10^3/uL (4.8-10.8) 02/25/25 04:06
RBC 4.66 10^6/uL (4.70-6.10) L 02/25/25 04:06
Hgb 12.7 g/dL (13.0-18.0) L 02/25/25 04:06
Hct 38.5 % (39.0-52.0) L 02/25/25 04:06
Plt Count 321 10^3/uL (130-400) 02/25/25 04:06
Sodium 140 mmol/L (135-145) 02/25/25 04:06
Potassium 3.9 mmol/L (3.5-5.1) 02/25/25 04:06
Chloride 107 mmol/L (98-107) 02/25/25 04:06
Carbon Dioxide 28 mmol/L (22-30) 02/25/25 04:06
BUN 18 mg/dl (9-20) 02/25/25 04:06
Creatinine 0.8 mg/dL (0.7-1.3) 02/25/25 04:06
eGFR > 60.00 02/25/25 04:06
Glucose 102 mg/dl (70-99) H 02/25/25 04:06
Calcium 9.1 mg/dl (8.4-10.2) 02/25/25 04:06
Albumin 4.2 g/dl (3.5-5.0) 02/22/25 05:07
Physical Exam
-
Vital Signs:
Vital Signs
Temp Pulse Resp BP Pulse Ox
97.7 F 71 18 156/93 96
02/28/25 07:55 02/28/25 07:55 02/28/25 07:55 02/28/25 07:55 02/28/25 07:55
Cardiovascular:: Regular rate and rhythm
Respiratory:: Bilateral: CTA
Lung Excursion:: Normal
Abdomen:: Nontender and Soft
Extremity Edema:: +2: Bilateral:
Cheng Catheter: No
[2025-02-28] MEDS: MAGNESIUM OXIDE 500 MG PO (10:18)
[2025-02-28] MEDS: SUBUTEX 8 MG SL (10:18)
[2025-02-28] MEDS: KEFLEX 500 MG PO ×4 (10:18→22:26)
[2025-02-28] MEDS: COREG 25 MG PO ×2 (10:21→20:34)
[2025-02-28] MEDS: COZAAR 100 MG PO (10:21)
[2025-02-28] MEDS: CATAPRES 0.1 MG PO ×3 (10:22→22:25)
[2025-02-28] MEDS: ALDACTONE 50 MG PO (10:25)
[2025-02-28] MEDS: COLACE PO ×2 (10:26→20:38)
[2025-02-28] MEDS: MIRALAX PO (10:26)
[2025-02-28] MEDS: SENOKOT PO ×2 (10:27→20:38)
--- NOTE | 2025-02-28 10:36 | W.PN.HOSP.TC ---
Today's Communication/Plan
-
Discharge planning
Assessment / Plan
Assessment / Plan
Gen-AAOx3, NAD, obese
HEENT-NC, AT, anicteric, clear oral mm
Neck-supple
CV-reg, no M, +S1/S2
Lungs-clear B/L
Abd-soft, NT, ND
Ext-bilateral lower extremity edema
Musculoskeletal-no cyanosis, clubbing
Skin-bilateral lower extremity Brody wraps
Neuro-right hemiparesis
Psych-calm, cooperative
Hypertensive urgency/essential hypertension -blood pressure improving.
Continue Coreg, losartan, clonidine, spironolactone
(Increased dose of losartan to 100 mg and clonidine 0.1 made TID )
Would want to avoid calcium channel blockers because of chronic lower extremity edema
Possibly secondary to drug withdrawal contributing to elevated blood pressure
Off Cardene drip. Oral antihypertensives titrated up.
Nephrology eval appreciated
No signs of hyperaldosteronism based on labs.
Cellulitis left lower extremity -started IV antibiotics on 02/21.
Has tolerated cefepime in the past
Convert to Keflex and complete course. Last day will be March 01.
Opiate use disorder with acute withdrawal -symptoms improving. Currently on buprenorphine. Change to Suboxone on discharge. Of note he has a prescription waiting for him at [facility] already. Will need to follow-up with outpatient clinic.
COWS score to be followed
[facility] referral patient refused now he may need someone to follow-up in the community to enroll him to a Suboxone clinic.
Patient was agreeable to start micro dosing protocol instead of the traditional which will decrease the symptoms.
Tolerating that.
History of CVA-left thalamus measuring at least 2.5 cm bleed 01/07/24. Transferred to [place] . Pt says he was there for 3 months and has weakness of right side and facial droop, current CT without any acute changes.
Leukocytosis-resolved.
Hypokalemia -resolved.
Chronic back pain
Morbid obesity with a BMI of 39
History of nephrolithiasis -CT scan demonstrates 2 small nephroliths in upper pole of the right kidney. Blood products and hematoma within the calyces of the upper pole of the right kidney. Recommend outpatient follow-up with urology. Discussed
with patient. Hematuria noted on urinalysis without signs of infection.
Possible sleep apnea-needs outpatient study as OP
ADHD
Hepatic steatosis per prior imaging
Active smoker-cessation counseling
DVT prophylaxis-Lovenox
Full code
Dispo -family agreeable to SNF. Medically stable for discharge. Case management aware.
Anticipated Discharge: Within 24 hours
Subjective/Interval History
-
Date of Service: February 28, 2025
Patient seen and examined. No new complaints.
Objective Data
-
Vital Signs:
Vital Signs
Temp Pulse Resp BP Pulse Ox
97.7 F 71 18 156/93 96
02/28/25 07:55 02/28/25 10:21 02/28/25 07:55 02/28/25 10:21 02/28/25 07:55
I&O
02/27/25 02/28/25 03/01/25
06:59 06:59 06:59
Intake Total 1180 / 1180 1140 / 1140
Output Total 1950 / 1949 1040 / 1040
Balance -770 / -770 100 / 100
Review of Systems
-
History Source: Patient
All other systems: Reviewed and negative
[2025-02-28] MEDS: DESENEX/MITRAZOL/ZEASORB 1 APPLIC TOPICAL (10:49)
[2025-02-28] MEDS: DAKIN'S SOLUTION 0.125% 1/4 STRENGTH 473 ML TOPICAL (10:49)
[2025-02-28] MEDS: HYDROPHOR 1 APPLIC TOPICAL (10:50)
--- NOTE | 2025-02-28 11:23 | CM ---
Met with patient at [facility]; explained that many of the SNF referrals were not accepted and that facility search was expanded.
Offered [facility] support; patient declined; not interested in speaking with a counselor
[2025-02-28 13:30] VITALS: BP 130/71
[2025-02-28 15:48] VITALS: BP 159/96
[2025-02-28] MEDS: LOVENOX 40 MG SC (17:42)
[2025-02-28 19:56] VITALS: BP 164/101
[2025-02-28] MEDS: DESENEX/MITRAZOL/ZEASORB TOPICAL (20:40)
[2025-02-28 22:38] VITALS: BP 143/87
[2025-03-01] MEDS: TYLENOL 1000 MG PO ×3 (01:00→15:45)
[2025-03-01] MEDS: ROXICODONE 20 MG PO ×5 (03:00→22:44)
[2025-03-01] MEDS: SUBUTEX 8 MG SL (07:29)
[2025-03-01] MEDS: DAKIN'S SOLUTION 0.125% 1/4 STRENGTH 1 ML TOPICAL (07:30)
[2025-03-01] MEDS: HYDROPHOR 1 APPLIC TOPICAL (07:30)
[2025-03-01] MEDS: DESENEX/MITRAZOL/ZEASORB 1 APPLIC TOPICAL (07:30)
[2025-03-01] MEDS: CATAPRES 0.1 MG PO (07:30)
[2025-03-01] MEDS: MIRALAX PO (07:30)
[2025-03-01] MEDS: COZAAR 100 MG PO (07:30)
[2025-03-01] MEDS: SENOKOT PO ×2 (07:30→20:53)
[2025-03-01] MEDS: KEFLEX 500 MG PO ×4 (07:31→20:57)
[2025-03-01] MEDS: MAGNESIUM OXIDE 500 MG PO (07:31)
[2025-03-01] MEDS: COLACE PO ×2 (07:32→20:53)
[2025-03-01] MEDS: COREG 25 MG PO ×2 (07:32→20:56)
[2025-03-01] MEDS: ALDACTONE 50 MG PO (07:32)
[2025-03-01 07:36] VITALS: BP 166/97
--- NOTE | 2025-03-01 08:08 | W.PN.NEPH.PH ---
Today's Communication / Plan
-
inc clonidine 0.2
Assessment/Plan
-
IMP:
Cellulitis left lower extremity
Hypertensive urgency
Opiate abuse with withdrawal
Microscopic hematuria, Albuminuria noted in the urine
History of CVA-left thalamus measuring at least 2.5 cm bleed 01/07/24. ventricular shunt
Leukocytosis- elevated since 2008 labs
Chronic back pain
Morbid obesity with a BMI of 39
History of nephrolithiasis
Possible sleep apnea-needs outpatient study asleep
ADHD
Hepatic steatosis per prior imaging
Active smoker
Plan:
a/w Opiate withdrawal
Hypertensive urgency with baseline uncontrolled hypertension
Reviewing his old records blood pressure always seem to be elevated
Nocturnal dip of BP, high during day still not optimal,
for now cont clonidine 0.1mg 3x a day, Losartan increased 100 mg daily
carvedilol 25mg twice a day
He maintained his normal renal function however noted microscopic hematuria and albuminuria
Known history of kidney stones, CT shows right kidney stone with blood-need to see outpt
He need to see his PCP closely and refer to local nephrology who are covered by insurance
Our practice is not in the coverage
d/w pt in detail
need SNF palcement
increase clonidine to 0.2 tid
-
-
Date of Service: March 01, 2025
CC / HPI / ROS
-
Chief Complaint:
HTN urgency
History of Present Illness:
Blood pressure improved but not optimal
no fever, cr 0.8 stable
no labs today
Review of Systems:
no sob and no cp
no dysuria or hematuria, non oliguric
wants to go home but need SNF
Labs
-
Labs:
WBC 8.0 10^3/uL (4.8-10.8) 02/25/25 04:06
RBC 4.66 10^6/uL (4.70-6.10) L 02/25/25 04:06
Hgb 12.7 g/dL (13.0-18.0) L 02/25/25 04:06
Hct 38.5 % (39.0-52.0) L 02/25/25 04:06
Plt Count 321 10^3/uL (130-400) 02/25/25 04:06
Sodium 140 mmol/L (135-145) 02/25/25 04:06
Potassium 3.9 mmol/L (3.5-5.1) 02/25/25 04:06
Chloride 107 mmol/L (98-107) 02/25/25 04:06
Carbon Dioxide 28 mmol/L (22-30) 02/25/25 04:06
BUN 18 mg/dl (9-20) 02/25/25 04:06
Creatinine 0.8 mg/dL (0.7-1.3) 02/25/25 04:06
eGFR > 60.00 02/25/25 04:06
Glucose 102 mg/dl (70-99) H 02/25/25 04:06
Calcium 9.1 mg/dl (8.4-10.2) 02/25/25 04:06
Albumin 4.2 g/dl (3.5-5.0) 02/22/25 05:07
Physical Exam
-
Vital Signs:
Vital Signs
Temp Pulse Resp BP Pulse Ox
98.3 F 69 18 166/97 97
03/01/25 07:36 03/01/25 07:36 03/01/25 07:36 03/01/25 07:36 03/01/25 07:36
Cardiovascular:: Regular rate and rhythm
Respiratory:: Bilateral: CTA
Lung Excursion:: Normal
Abdomen:: Nontender and Soft
Extremity Edema:: +2: Bilateral:
Cheng Catheter: No
--- NOTE | 2025-03-01 09:43 | W.PN.HOSP.TC ---
Today's Communication/Plan
-
Discharge planning
Assessment / Plan
Assessment / Plan
Gen-AAOx3, NAD, obese
HEENT-NC, AT, anicteric, clear oral mm
Neck-supple
CV-reg, no M, +S1/S2
Lungs-clear B/L
Abd-soft, NT, ND
Ext-bilateral lower extremity edema
Musculoskeletal-no cyanosis, clubbing
Skin-bilateral lower extremity Brody wraps
Neuro-right hemiparesis
Psych-calm, cooperative
Hypertensive urgency/essential hypertension -blood pressure improving.
Continue Coreg, losartan, clonidine, spironolactone
(Increased dose of losartan to 100 mg and clonidine 0.1 made TID )
Would want to avoid calcium channel blockers because of chronic lower extremity edema
Possibly secondary to drug withdrawal contributing to elevated blood pressure
Off Cardene drip. Oral antihypertensives titrated up.
Nephrology eval appreciated
No signs of hyperaldosteronism based on labs.
Cellulitis left lower extremity -started IV antibiotics on 02/21.
Has tolerated cefepime in the past
Convert to Keflex and complete course. Last day will be March 01.
Opiate use disorder with acute withdrawal -symptoms improving. Currently on buprenorphine. Change to Suboxone on discharge. Of note he has a prescription waiting for him at [facility] already. Will need to follow-up with outpatient clinic.
COWS score to be followed
BCARES referral patient refused now he may need someone to follow-up in the community to enroll him to a Suboxone clinic.
Patient was agreeable to start micro dosing protocol instead of the traditional which will decrease the symptoms.
Tolerating that.
History of CVA-left thalamus measuring at least 2.5 cm bleed 01/07/24. Transferred to [place] . Pt says he was there for 3 months and has weakness of right side and facial droop, current CT without any acute changes.
Leukocytosis-resolved.
Hypokalemia -resolved.
Chronic back pain
Morbid obesity with a BMI of 39
History of nephrolithiasis -CT scan demonstrates 2 small nephroliths in upper pole of the right kidney. Blood products and hematoma within the calyces of the upper pole of the right kidney. Recommend outpatient follow-up with urology. Discussed
with patient. Hematuria noted on urinalysis without signs of infection.
Possible sleep apnea-needs outpatient study as OP
ADHD
Hepatic steatosis per prior imaging
Active smoker-cessation counseling
DVT prophylaxis-Lovenox
Full code
Dispo -family agreeable to SNF. Medically stable for discharge. Case management aware.
Anticipated Discharge: > 48 hours
Subjective/Interval History
-
Date of Service: March 01, 2025
Patient seen and examined. No complaints.
Objective Data
-
Vital Signs:
Vital Signs
Temp Pulse Resp BP Pulse Ox
98.3 F 69 18 166/97 97
03/01/25 07:36 03/01/25 07:36 03/01/25 07:36 03/01/25 07:36 03/01/25 07:36
I&O
02/28/25 03/01/25 03/02/25
06:59 06:59 06:59
Intake Total 1140 / 1140 1620 / 1620
Output Total 1040 / 1040 1000 / 1000
Balance 100 / 100 620 / 620
Review of Systems
-
History Source: Patient
All other systems: Reviewed and negative
[2025-03-01 11:55] VITALS: BP 142/85
--- NOTE | 2025-03-01 11:58 | W.PN.UPDATE ---
Update Note
Progress Note Update
Will sign off
[2025-03-01 15:00] VITALS: BP 189/109
[2025-03-01] MEDS: CATAPRES 0.2 MG PO ×2 (15:46→21:00)
[2025-03-01] MEDS: TYLENOL PO (15:46)
[2025-03-01] MEDS: LOVENOX 40 MG SC (15:50)
[2025-03-01 16:45] VITALS: BP 138/80
[2025-03-01] MEDS: DESENEX/MITRAZOL/ZEASORB TOPICAL (20:57)
[2025-03-01 22:37] VITALS: BP 130/67
[2025-03-02] MEDS: ROXICODONE 20 MG PO ×4 (06:06→22:27)
[2025-03-02 07:00] VITALS: BP 158/108
[2025-03-02] MEDS: SUBUTEX 8 MG SL (07:33)
[2025-03-02] MEDS: TYLENOL 1000 MG PO ×2 (07:34→15:41)
[2025-03-02] MEDS: COREG 25 MG PO ×2 (07:34→21:05)
[2025-03-02] MEDS: COLACE PO ×2 (07:34→21:00)
[2025-03-02] MEDS: MIRALAX PO (07:34)
[2025-03-02] MEDS: SENOKOT PO ×2 (07:34→21:05)
[2025-03-02] MEDS: ALDACTONE 50 MG PO (07:34)
[2025-03-02] MEDS: DESENEX/MITRAZOL/ZEASORB 1 APPLIC TOPICAL (07:35)
[2025-03-02] MEDS: MAGNESIUM OXIDE 500 MG PO (07:35)
[2025-03-02] MEDS: HYDROPHOR 1 APPLIC TOPICAL (07:35)
[2025-03-02] MEDS: COZAAR 100 MG PO (07:35)
[2025-03-02] MEDS: DAKIN'S SOLUTION 0.125% 1/4 STRENGTH 473 ML TOPICAL (07:35)
[2025-03-02] MEDS: CATAPRES 0.2 MG PO ×3 (07:35→22:27)
--- NOTE | 2025-03-02 10:01 | W.PN.HOSP.TC ---
Today's Communication/Plan
-
Discharge planning
Assessment / Plan
Assessment / Plan
Gen-AAOx3, NAD, obese
HEENT-NC, AT, anicteric, clear oral mm
Neck-supple
CV-reg, no M, +S1/S2
Lungs-clear B/L
Abd-soft, NT, ND
Ext-bilateral lower extremity edema
Musculoskeletal-no cyanosis, clubbing
Skin-bilateral lower extremity Brody wraps
Neuro-right hemiparesis
Psych-calm, cooperative
Hypertensive urgency/essential hypertension -blood pressure improving.
Continue Coreg, losartan, clonidine, spironolactone. Doses have been increased.
Would want to avoid calcium channel blockers because of chronic lower extremity edema
Possibly secondary to drug withdrawal contributing to elevated blood pressure
Off Cardene drip. Oral antihypertensives titrated up.
Nephrology signed off.
No signs of hyperaldosteronism based on labs.
Cellulitis left lower extremity -completed course of antibiotics.
Opiate use disorder with acute withdrawal -symptoms improving. Currently on buprenorphine. Change to Suboxone on discharge. Of note he has a prescription waiting for him at [facility] already. Will need to follow-up with outpatient clinic.
COWS score to be followed
BCARES referral patient refused now he may need someone to follow-up in the community to enroll him to a Suboxone clinic.
Patient was agreeable to start micro dosing protocol instead of the traditional which will decrease the symptoms.
Tolerating that.
History of CVA-left thalamus measuring at least 2.5 cm bleed 01/07/24. Transferred to [place] . Pt says he was there for 3 months and has weakness of right side and facial droop, current CT without any acute changes.
Leukocytosis-resolved.
Hypokalemia -resolved.
Chronic back pain
Morbid obesity with a BMI of 39
History of nephrolithiasis -CT scan demonstrates 2 small nephroliths in upper pole of the right kidney. Blood products and hematoma within the calyces of the upper pole of the right kidney. Recommend outpatient follow-up with urology. Discussed
with patient. Hematuria noted on urinalysis without signs of infection.
Possible sleep apnea-needs outpatient study as OP
ADHD
Hepatic steatosis per prior imaging
Active smoker-cessation counseling
DVT prophylaxis-Lovenox
Full code
Dispo -family agreeable to SNF. Medically stable for discharge. Case management aware.
Anticipated Discharge: Within 24 hours
Subjective/Interval History
-
Date of Service: March 02, 2025
Patient seen and examined. Complaining of left leg pain but overall improving.
Objective Data
-
Vital Signs:
Vital Signs
Temp Pulse Resp BP Pulse Ox
98 F 69 18 158/108 98
03/02/25 07:00 03/02/25 07:00 03/02/25 07:00 03/02/25 07:00 03/02/25 07:30
I&O
03/01/25 03/02/25 03/03/25
06:59 06:59 06:59
Intake Total 1620 / 1620 1200 / 1200
Output Total 1000 / 1000 1550 / 1550
Balance 620 / 620 -350 / -350
Review of Systems
-
History Source: Patient
All other systems: Reviewed and negative
[2025-03-02 15:00] VITALS: BP 152/88
[2025-03-02] MEDS: LOVENOX 40 MG SC (15:42)
[2025-03-02 22:22] VITALS: BP 125/73
[2025-03-02] MEDS: DESENEX/MITRAZOL/ZEASORB TOPICAL (22:32)
[2025-03-03] MEDS: TYLENOL 1000 MG PO ×4 (00:04→23:07)
[2025-03-03] MEDS: ROXICODONE 20 MG PO ×4 (04:05→20:44)
[2025-03-03 07:36] VITALS: BP 131/82
[2025-03-03] MEDS: COZAAR 100 MG PO (08:01)
[2025-03-03] MEDS: CATAPRES 0.2 MG PO ×3 (08:02→23:07)
[2025-03-03] MEDS: SENOKOT 17.2 MG PO (08:02)
[2025-03-03] MEDS: COLACE 100 MG PO (08:03)
[2025-03-03] MEDS: MIRALAX 17 GRAMS PO (08:03)
[2025-03-03] MEDS: COREG 25 MG PO ×2 (08:03→20:44)
[2025-03-03] MEDS: DESENEX/MITRAZOL/ZEASORB 1 APPLIC TOPICAL (08:04)
[2025-03-03] MEDS: DAKIN'S SOLUTION 0.125% 1/4 STRENGTH 1 ML TOPICAL (08:04)
[2025-03-03] MEDS: HYDROPHOR 1 APPLIC TOPICAL (08:05)
[2025-03-03] MEDS: MAGNESIUM OXIDE 500 MG PO (08:05)
[2025-03-03] MEDS: ALDACTONE 50 MG PO (08:05)
[2025-03-03] MEDS: SUBUTEX 8 MG SL (08:06)
--- NOTE | 2025-03-03 11:06 | CM ---
Addendum entered by Tammy Devine 03/03/25 14:37:
CHUN spoke with Lulú, Lever Miller at [facility] in [place]. The attending physician at the SNF will not write orders for suboxone due to substance abuse issues. CM sent additional referrals to 34 SNF to find a facility that will accept him
for transfer.
Original Note:
Referrals sent to multiple SNF facilities. [facility] in [place] is considering for admission. Await update from facility.
Authorization will be needed for transfer when medically cleared.
[2025-03-03 13:15] LABS: Hematocrit 42.5 % (39.0-52.0); Hemoglobin 14.1 g/dL (13.0-18.0); Mean Corp Hgb Conc. 33.2 g/dL (33.0-37.0); Mean Corpuscular Hgb 27.4 pg (27.0-31.0); Mean Corpuscular Volume 82.7 fL (80.0-94.0); Mean Platelet Volume 9.6 fL (7.4-10.4); Platelet Count 336 10^3/uL (130-400); Red Blood Cell Count 5.14 10^6/uL (4.70-6.10); Red Cell Dist. Width 14.5 % (11.5-14.5); White Blood Cell Count 8.4 10^3/uL (4.8-10.8)
[2025-03-03 13:25] VITALS: BP 131/82; PULSE 63
[2025-03-03 14:11] LABS: Blood Urea Nitrogen 22 mg/dl (9-20); Calcium 9.7 mg/dl (8.4-10.2); Carbon Dioxide 27 mmol/L (22-30); Chloride 106 mmol/L (98-107); Estimated Creatinine Clearance > 125 ml/min; Glucose 115 mg/dl (70-99); Potassium 4.3 mmol/L (3.5-5.1); Sodium 142 mmol/L (135-145); eGFR > 60.00
--- NOTE | 2025-03-03 15:05 | W.PN.HOSP.TC ---
Today's Communication/Plan
-
Placement
Assessment / Plan
Assessment / Plan
CVS: S1-S2 normal
Chest: CTA B/L
Abdomen: Soft, NT / Bowel sounds present
Extremities: Chronic skin thickening
PRODUCER: right hemiparesis
# Hypertensive urgency/essential hypertension -blood pressure improving.
Continue Coreg, losartan, clonidine, spironolactone. Doses have been increased.
Would want to avoid calcium channel blockers because of chronic lower extremity edema
Possibly secondary to drug withdrawal contributing to elevated blood pressure
Off Cardene drip. Oral antihypertensives titrated up.
Nephrology signed off.
No signs of hyperaldosteronism based on labs.
#Cellulitis left lower extremity -completed course of antibiotics.
#Opiate use disorder with acute withdrawal -symptoms improving. Currently on buprenorphine. Change to Suboxone on discharge. Of note he has a prescription waiting for him at [facility] already. Will need to follow-up with outpatient clinic.
COWS score to be followed
BCARES referral patient refused now he may need someone to follow-up in the community to enroll him to a Suboxone clinic.
Patient was agreeable to start micro dosing protocol instead of the traditional which will decrease the symptoms.
Tolerating that- Now 8 mg daily.
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 Transferred to [place] . Pt says he was there for 3 months and has weakness of right side and facial droop, current CT without any acute changes.
# Tenia of skin- Antifungal
#Leukocytosis-resolved.
#Hypokalemia -resolved.
#Chronic back pain
#Morbid obesity with a BMI of 39
#History of nephrolithiasis -CT scan demonstrates 2 small nephroliths in upper pole of the right kidney. Blood products and hematoma within the calyces of the upper pole of the right kidney. Recommend outpatient follow-up with urology. Discussed
with patient. Hematuria noted on urinalysis without signs of infection.
#Possible sleep apnea-needs outpatient study as OP
#ADHD
#Hepatic steatosis per prior imaging
#Active smoker-cessation counseling
#DVT prophylaxis-Lovenox
#Full code
Dispo -family agreeable to SNF. Medically stable for discharge. Case management aware.
Anticipated Discharge: Within 24 hours
Subjective/Interval History
-
Date of Service: March 03, 2025
Objective Data
-
Labs:
Laboratory Results
03/03/25
12:50
WBC 8.4
Hgb 14.1
Hct 42.5
Plt Count 336
Sodium 142
Potassium 4.3
Chloride 106
Carbon Dioxide 27
BUN 22 H
Creatinine 0.7
Glucose 115 H
Calcium 9.7
Vital Signs:
Vital Signs
Temp Pulse Resp BP Pulse Ox
97.9 F 63 18 131/82 97
03/03/25 07:36 03/03/25 07:36 03/03/25 07:36 03/03/25 07:36 03/03/25 07:36
I&O
03/02/25 03/03/25 03/04/25
06:59 06:59 06:59
Intake Total 1200 / 1200 480 / 480
Output Total 1550 / 1550 150 / 150
Balance -350 / -350 330 / 330
[2025-03-03 15:49] VITALS: BP 116/65
[2025-03-03] MEDS: LOVENOX 40 MG SC (17:48)
[2025-03-03 20:43] VITALS: BP 113/67
[2025-03-03] MEDS: DESENEX/MITRAZOL/ZEASORB TOPICAL (20:46)
[2025-03-03] MEDS: SENOKOT PO (21:10)
[2025-03-03] MEDS: COLACE PO (21:10)
[2025-03-03] MEDS: LOTRIMIN 1% TOPICAL SOLUTION 1 APPLIC TOPICAL (23:08)
[2025-03-03 23:13] VITALS: BP 117/60; BP 129/83
[2025-03-04] MEDS: ROXICODONE 20 MG PO ×3 (01:01→13:05)
[2025-03-04 07:00] VITALS: BP 136/74
[2025-03-04] MEDS: SUBUTEX 8 MG SL (08:01)
[2025-03-04] MEDS: COZAAR 100 MG PO (08:02)
[2025-03-04] MEDS: MAGNESIUM OXIDE 500 MG PO (08:02)
[2025-03-04] MEDS: CATAPRES 0.2 MG PO ×2 (08:02→16:22)
[2025-03-04] MEDS: ALDACTONE 50 MG PO (08:02)
[2025-03-04] MEDS: COREG 25 MG PO ×2 (08:02→19:43)
[2025-03-04] MEDS: TYLENOL 1000 MG PO ×3 (08:02→23:00)
[2025-03-04] MEDS: LOTRIMIN 1% TOPICAL SOLUTION 1 APPLIC TOPICAL ×2 (08:03→21:49)
[2025-03-04] MEDS: DAKIN'S SOLUTION 0.125% 1/4 STRENGTH 473 ML TOPICAL (08:04)
[2025-03-04] MEDS: HYDROPHOR 1 APPLIC TOPICAL (08:05)
[2025-03-04] MEDS: DESENEX/MITRAZOL/ZEASORB 1 APPLIC TOPICAL (08:05)
[2025-03-04] MEDS: MIRALAX PO (08:09)
[2025-03-04] MEDS: COLACE PO ×2 (08:09→19:56)
[2025-03-04] MEDS: SENOKOT PO ×2 (08:09→19:56)
[2025-03-04 11:57] VITALS: BP 122/70; PULSE 65
--- NOTE | 2025-03-04 12:15 | CM ---
CM reviewed chart, over 50 referrals placed for STR. CM spoke with liaison from [facility], unable to accept patient due to substance use history. Patient will require SNF that is able to provide Suboxone. Patient seen bedside, aware multiple
referrals placed and issues with placement due to medication. Additional referrals placed today, patient would like to hear back from additional referrals placed. Patient reports he does not want his daughter, Any, involved in his care. CM will
continue to follow for all discharge planning needs.
Plan; additional SNF referrals placed, will require auth
[2025-03-04 15:34] VITALS: BP 121/67
--- NOTE | 2025-03-04 17:10 | W.PN.HOSP.TC ---
Today's Communication/Plan
-
Await placement
Assessment / Plan
Assessment / Plan
CVS: S1-S2 normal
Chest: CTA B/L
Abdomen: Soft, NT / Bowel sounds present
Extremities: Chronic skin thickening, no discharge
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
# Hypertensive urgency/essential hypertension -blood pressure improving.
Continue Coreg, losartan, clonidine, spironolactone. Doses have been increased.
Would want to avoid calcium channel blockers because of chronic lower extremity edema
Possibly secondary to drug withdrawal contributing to elevated blood pressure
Off Cardene drip. Oral antihypertensives titrated up.
Nephrology signed off.
No signs of hyperaldosteronism based on labs.
#Cellulitis left lower extremity -completed course of antibiotics.
#Opiate use disorder with acute withdrawal -symptoms improving. Currently on buprenorphine. Change to Suboxone on discharge. Of note he has a prescription waiting for him at [facility] already. Will need to follow-up with outpatient clinic.
COWS score to be followed
BCARES referral patient refused now he may need someone to follow-up in the community to enroll him to a Suboxone clinic.
Patient was agreeable to start micro dosing protocol instead of the traditional which will decrease the symptoms.
Tolerating that- Now Subutex 8 mg daily.
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 Transferred to [place] . Pt says he was there for 3 months and has weakness of right side and facial droop, current CT without any acute changes.
# Tenia of skin- Antifungal
#Leukocytosis-resolved.
#Hypokalemia -resolved.
#Chronic back pain
#Morbid obesity with a BMI of 39
#History of nephrolithiasis -CT scan demonstrates 2 small nephroliths in upper pole of the right kidney. Blood products and hematoma within the calyces of the upper pole of the right kidney. Recommend outpatient follow-up with urology. Discussed
with patient. Hematuria noted on urinalysis without signs of infection.
#Possible sleep apnea-needs outpatient study as OP
#ADHD
#Hepatic steatosis per prior imaging
#Active smoker-cessation counseling
#DVT prophylaxis-Lovenox
#Full code
Dispo -Pt and family agreeable to SNF. Medically stable for discharge. Case management aware.
Because of Suboxone, SNF refusing to take pt per Case management.
D/W Pharmacy
Anticipated Discharge: Within 24 hours
Subjective/Interval History
-
Date of Service: March 04, 2025
Objective Data
-
Vital Signs:
Vital Signs
Temp Pulse Resp BP Pulse Ox
97.7 F 65 20 121/67 94
03/04/25 15:34 03/04/25 15:34 03/04/25 15:34 03/04/25 15:34 03/04/25 15:34
I&O
03/03/25 03/04/25 03/05/25
06:59 06:59 06:59
Intake Total 480 / 480 0 / 1680
Output Total 150 / 150
Balance 330 / 330 1680 / 1680
[2025-03-04] MEDS: LOVENOX 40 MG SC (17:14)
[2025-03-04 19:43] VITALS: BP 105/63
[2025-03-04] MEDS: DESENEX/MITRAZOL/ZEASORB TOPICAL (19:45)
[2025-03-04] MEDS: ROXICODONE 10 MG PO (19:45)
[2025-03-04] MEDS: CATAPRES PO (21:50)
[2025-03-04 23:32] VITALS: BP 101/66
[2025-03-05] MEDS: ROXICODONE 10 MG PO ×2 (01:45→08:22)
[2025-03-05 07:15] VITALS: BP 140/76
[2025-03-05] MEDS: ALDACTONE 50 MG PO (08:21)
[2025-03-05] MEDS: COLACE PO ×2 (08:21→21:05)
[2025-03-05] MEDS: MIRALAX PO (08:21)
[2025-03-05] MEDS: COZAAR 100 MG PO (08:21)
[2025-03-05] MEDS: SENOKOT PO ×2 (08:21→21:06)
[2025-03-05] MEDS: SUBUTEX 8 MG SL (08:21)
[2025-03-05] MEDS: MAGNESIUM OXIDE 500 MG PO (08:22)
[2025-03-05] MEDS: TYLENOL 1000 MG PO ×3 (08:22→23:11)
[2025-03-05] MEDS: CATAPRES 0.2 MG PO ×2 (08:22→14:46)
[2025-03-05] MEDS: COREG 25 MG PO ×2 (08:22→21:16)
[2025-03-05 08:24] LABS: Glycohemoglobin (HgbA1c) 5.3 % (4.0-5.6)
--- NOTE | 2025-03-05 10:50 | CM ---
CM reviewed chart, patient seen bedside, discussed only accepting facility at this time is [facility] in [place], [place]. Patient agreeable, auth submitted to [facility], referral form/clinicals faxed to [phone]. Patient
aware that auth may not be approved, plan B would be to return home with home services. CM will continue to follow for all discharge planning needs.
Plan; auth submitted to [facility] for [facility], patient will need transport
[2025-03-05] MEDS: DESENEX/MITRAZOL/ZEASORB TOPICAL ×2 (11:01→21:06)
[2025-03-05] MEDS: DAKIN'S SOLUTION 0.125% 1/4 STRENGTH 1 ML TOPICAL (11:06)
[2025-03-05] MEDS: HYDROPHOR 1 APPLIC TOPICAL (11:07)
[2025-03-05] MEDS: LOTRIMIN 1% TOPICAL SOLUTION 1 APPLIC TOPICAL ×2 (11:07→21:16)
[2025-03-05] MEDS: ROXICODONE 20 MG PO ×2 (14:46→21:11)
[2025-03-05 14:52] VITALS: BP 145/91
--- NOTE | 2025-03-05 14:52 | W.PN.HOSP.TC ---
Today's Communication/Plan
-
Discharge planning
Assessment / Plan
Assessment / Plan
CVS: S1-S2 normal
Chest: CTA B/L
Abdomen: Soft, NT / Bowel sounds present
Extremities: Chronic skin thickening, no discharge
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
# Hypertensive urgency/essential hypertension -blood pressure improving.
Continue Coreg, losartan, clonidine, spironolactone. Doses have been increased.
Would want to avoid calcium channel blockers because of chronic lower extremity edema
Possibly secondary to drug withdrawal contributing to elevated blood pressure
Off Cardene drip. Oral antihypertensives titrated up.
Nephrology signed off.
No signs of hyperaldosteronism based on labs.
#Cellulitis left lower extremity -completed course of antibiotics.
#Opiate use disorder with acute withdrawal -symptoms improving. Currently on buprenorphine. Change to Suboxone on discharge. Of note he has a prescription waiting for him at [facility] already. Will need to follow-up with outpatient clinic.
COWS score to be followed
BCARES referral patient refused now he may need someone to follow-up in the community to enroll him to a Suboxone clinic.
Patient was agreeable to start micro dosing protocol instead of the traditional which will decrease the symptoms.
Tolerating that- Now Subutex 8 mg daily.
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 Transferred to [place] . Pt says he was there for 3 months and has weakness of right side and facial droop, current CT without any acute changes.
# Tenia of skin- Antifungal
#Leukocytosis-resolved.
#Hypokalemia -resolved.
#Chronic back pain
#Morbid obesity with a BMI of 39
#History of nephrolithiasis -CT scan demonstrates 2 small nephroliths in upper pole of the right kidney. Blood products and hematoma within the calyces of the upper pole of the right kidney. Recommend outpatient follow-up with urology. Discussed
with patient. Hematuria noted on urinalysis without signs of infection.
#Possible sleep apnea-needs outpatient study as OP
#ADHD
#Hepatic steatosis per prior imaging
#Active smoker-cessation counseling
#DVT prophylaxis-Lovenox
#Full code
Dispo -Pt and family agreeable to SNF. Medically stable for discharge. Case management aware.
Because of Suboxone, SNF refusing to take pt per Case management.
Pt has a prescription for Suboxone per PDMP. [facility]
He is yelling today that he is in pain and wants previous pain medicines. I discussed that there will not be anybody who will be prescribing this when he leaves here.
D/W case management
Anticipated Discharge: Within 24 hours
Subjective/Interval History
-
Date of Service: March 05, 2025
Objective Data
-
Vital Signs:
Vital Signs
Temp Pulse Resp BP Pulse Ox
98.0 F 64 18 140/76 98
03/05/25 07:15 03/05/25 07:15 03/05/25 07:15 03/05/25 07:15 03/05/25 07:15
I&O
03/04/25 03/05/25 03/06/25
06:59 06:59 06:59
Intake Total 1680 / 1680 480 / 480
Output Total 350 / 350
Balance 1680 / 1680 130 / 130
[2025-03-05 15:37] VITALS: BP 145/91; PULSE 68
[2025-03-05 15:50] VITALS: BP 121/68
[2025-03-05] MEDS: LOVENOX 40 MG SC (18:01)
[2025-03-05 21:05] VITALS: BP 115/61
[2025-03-05] MEDS: CATAPRES PO (21:06)
[2025-03-05 23:08] VITALS: BP 106/48
[2025-03-06] MEDS: ROXICODONE 20 MG PO ×3 (03:14→15:24)
[2025-03-06 07:38] VITALS: BP 130/63
[2025-03-06] MEDS: TYLENOL 1000 MG PO ×2 (08:40→15:24)
[2025-03-06] MEDS: COREG 25 MG PO (08:41)
[2025-03-06] MEDS: CATAPRES 0.2 MG PO ×2 (08:41→15:24)
[2025-03-06] MEDS: SENOKOT 17.2 MG PO (08:42)
[2025-03-06] MEDS: MAGNESIUM OXIDE 500 MG PO (08:42)
[2025-03-06] MEDS: ALDACTONE 50 MG PO (08:42)
[2025-03-06] MEDS: COZAAR 100 MG PO (08:42)
[2025-03-06] MEDS: SUBUTEX 8 MG SL (08:42)
[2025-03-06] MEDS: MIRALAX 17 GRAMS PO (08:43)
[2025-03-06] MEDS: DAKIN'S SOLUTION 0.125% 1/4 STRENGTH 473 ML TOPICAL (08:43)
[2025-03-06] MEDS: COLACE 100 MG PO (08:43)
[2025-03-06] MEDS: DESENEX/MITRAZOL/ZEASORB 1 APPLIC TOPICAL (08:44)
[2025-03-06] MEDS: HYDROPHOR 1 APPLIC TOPICAL (08:44)
[2025-03-06] MEDS: LOTRIMIN 1% TOPICAL SOLUTION 1 APPLIC TOPICAL (08:45)
--- NOTE | 2025-03-06 09:59 | CM ---
Addendum entered by Virgie Hoover 03/06/25 13:51:
Patient scheduled for 4:00 p.m. WC Aleksandar
[facility]
Report: [phone]

Addendum entered by Virgie Hoover 03/06/25 12:26:
CM received message from [facility], auth approved 30 days, start date 03/06-04/04, plan to d/c 04/05, fax discharge summary to [phone], phone to call [phone], auth #[id number]. Patient seen bedside, aware auth approved, will require WC
Van transport, Hospital to cover cost. Auth information provided to liaisonRaghav, at [facility].
Original Note:
CHUN reviewed chart, spoke with insurance risk surveyor ([phone]), informed authorization remains pending for nurse review, pending reference #[id number]. Update to admissions at [facility] awaiting auth approval.
Plan; [facility] SNF pending auth
--- NOTE | 2025-03-06 14:40 | W.PN.HOSP.TC ---
Addendum entered and electronically signed by Melodie Hoskins MD 03/06/25 14:47:
Called -number not going through
Called mom. Left message
Original Note:
Today's Communication/Plan
-
Discharge
Assessment / Plan
Assessment / Plan
CVS: S1-S2 normal
Chest: CTA B/L
Abdomen: Soft, NT / Bowel sounds present
Extremities: Chronic skin thickening, no discharge
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
# Hypertensive urgency/essential hypertension -blood pressure improving.
Continue Coreg, losartan, clonidine, spironolactone. Doses have been increased.
Would want to avoid calcium channel blockers because of chronic lower extremity edema
Possibly secondary to drug withdrawal contributing to elevated blood pressure
Off Cardene drip. Oral antihypertensives titrated up.
Nephrology signed off.
No signs of hyperaldosteronism based on labs.
#Cellulitis left lower extremity -completed course of antibiotics.
#Opiate use disorder with acute withdrawal -symptoms improving. Currently on buprenorphine. Change to Suboxone on discharge. Of note he has a prescription waiting for him at [facility] already. Will need to follow-up with outpatient clinic.
COWS score to be followed
BCARES referral patient refused now he may need someone to follow-up in the community to enroll him to a Suboxone clinic.
Patient was agreeable to start micro dosing protocol instead of the traditional which will decrease the symptoms.
Tolerating that- Now Subutex 8 mg daily.
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 Transferred to [place] . Pt says he was there for 3 months and has weakness of right side and facial droop, current CT without any acute changes.
# Tenia of skin- Antifungal
#Leukocytosis-resolved.
#Hypokalemia -resolved.
#Chronic back pain
#Morbid obesity with a BMI of 33- Weight loss recommended
#History of nephrolithiasis -CT scan demonstrates 2 small nephroliths in upper pole of the right kidney. Blood products and hematoma within the calyces of the upper pole of the right kidney. Recommend outpatient follow-up with urology. Discussed
with patient. Hematuria noted on urinalysis without signs of infection. Phone number provided
#Possible sleep apnea-needs outpatient study as OP. Phone number provided
# Duodenitis on the CT. No abdominal pain or symptoms. PPI added. Outpatient EGD. Phone number provided for GI
#ADHD
#Hepatic steatosis per prior imaging-outpatient follow-up
#Active smoker-cessation counseling done.
#DVT prophylaxis-Lovenox
#Full code
D/W case management
Prescription for Suboxone given to the rehab
More than 30 minutes spent in discharge including
Final examination of the patient
Summarizing hospital stay
Instructions for continuing care to all relevant caregivers
Preparation of discharge records, prescriptions, and referral forms
Total time spent (in minutes): 37 min
Anticipated Discharge: Today
Subjective/Interval History
-
Date of Service: March 06, 2025
Objective Data
-
Vital Signs:
Vital Signs
Temp Pulse Resp BP Pulse Ox
97.8 F 62 18 130/63 98
03/06/25 07:38 03/06/25 07:38 03/06/25 07:38 03/06/25 08:41 03/06/25 08:00
I&O
03/05/25 03/06/25 03/07/25
06:59 06:59 06:59
Intake Total 480 / 480 960 / 960
Output Total 350 / 350 850 / 850
Balance 130 / 130 110 / 110
--- NOTE | 2025-03-06 14:43 | W.DS.TRANS ---
Addendum entered and electronically signed by Melodie Hoskins MD 03/06/25 17:11:
Dictation- [id number]
Original Note:
DC Summary - Behavioral Health Tech
-
Discharge Instructions:
Discharge Diagnosis/Procedures Hypertensive urgency
Cellulitis left lower extremity
Opiate use disorder
History of CVA
Ventricular shunt
Chronic back pain
Obesity
History of nephrolithiasis
ADD
Hepatic steatosis
Tobacco use
Diet 2 Gram Sodium
Activity As tolerated
Driving Restrictions No driving
Other Services PT,OT
Instructions:
Stand-Alone Forms:
Changes to Home Medications: Yes
Discharge Medications:
DC Medications w/original date entered in [facility]
acetaminophen 500 mg tablet (Tylenol Extra Strength) 1,000 mg (2 x 500 mg) PO Q8 PRN mild pain #0 tabs 03/06/25
buprenorphine 8 mg-naloxone 2 mg sublingual film (Suboxone) 1 film buccal DAILY opiate use disorder #30 ea 03/06/25
carvedilol 25 mg tablet 25 mg PO BID Blood pressure #0 tabs 03/06/25
clonidine HCl 0.1 mg tablet 0.2 mg (2 x 0.1 mg) PO TID Blood pressure #0 tabs 03/06/25
clotrimazole 1 % topical solution 1 applic topical BID tinea #0 mL 03/06/25
docusate sodium 100 mg capsule 100 mg PO BID Constipation #0 caps 03/06/25
losartan 50 mg tablet 100 mg (2 x 50 mg) PO DAILY Blood pressure #0 tabs 03/06/25
magnesium oxide 500 mg PO DAILY Electrolyte Repletion #0 tabs 03/06/25
oxycodone 10 mg tablet 20 mg (2 x 10 mg) PO Q6HPRN PRN PAIN moderate #10 tabs 03/06/25
pantoprazole 40 mg tablet,delayed release (Protonix) 40 mg PO DAILY Gastrointestinal issue #30 tabs 03/06/25
polyethylene glycol 3350 17 gram oral powder packet 17 g PO DAILY Constipation #0 ea 03/06/25
sennosides 8.6 mg tablet (Rebecca-nu) 17.2 mg (2 x 8.6 mg) PO BID Constipation #0 tabs 03/06/25
spironolactone 50 mg tablet 50 mg PO DAILY Blood pressure #0 tabs 03/06/25
white petrolatum 42 % topical ointment (Hydrophor) 1 applic topical DAILY legs #0 grams 03/06/25
Home Medication Changes
New
Aldactone, Senokot, MiraLAX, Protonix, oxycodone, magnesium, Colace, clotrimazole, buprenorphine
Increased doses of Coreg, clonidine, losartan
Pending Results: No
[2025-03-06 15:25] VITALS: BP 105/61
== END 2025-03-06 16:26 | DRG 897 ==
LOC: 4 WEST ACU 18:12
PROVIDERS: Hospitalist; Registered Nurse; ADMITTING PHYSICIAN Internal Medicine; ATTENDING PHYSICIAN Hospitalist; CONSULT PHYSICIAN Internal Medicine; EMERGENCY PHYSICIAN Emergency Medicine; FAMILY PHYSICIAN Family Medicine
DX: F11.23 Opioid dependence with withdrawal (principal); L03.116 Cellulitis of left lower limb; I69.251 Hemiplegia and hemiparesis following other nontraumatic intracranial hemorrhage affecting right dominant side; I16.0 Hypertensive urgency; G89.29 Other chronic pain; Z87.442 Personal history of urinary calculi; K76.0 Fatty (change of) liver, not elsewhere classified; E66.01 Morbid (severe) obesity due to excess calories; Z68.33 Body mass index [BMI] 33.0-33.9, adult; F90.9 Attention-deficit hyperactivity disorder, unspecified type; G43.909 Migraine, unspecified, not intractable, without status migrainosus; Z88.1 Allergy status to other antibiotic agents; Z88.0 Allergy status to penicillin; Z88.5 Allergy status to narcotic agent; Z98.2 Presence of cerebrospinal fluid drainage device; F17.200 Nicotine dependence, unspecified, uncomplicated; I10 Essential (primary) hypertension; R31.29 Other microscopic hematuria; Z79.899 Other long term (current) drug therapy; Z88.2 Allergy status to sulfonamides; E87.6 Hypokalemia; G47.30 Sleep apnea, unspecified; K29.80 Duodenitis without bleeding
CPT/HCPCS: 70450; 74177; 80048; 80053; 80076; 80143; 80306; 80307; 81003; 81015; 82077; 82088; 82570; 83036; 83735; 84156; 84244; 85025; 85027; 87070; 93005; 94760; 96360; 96361; 97116; 97163; 97167; 97530; 99285; Q9967

== ENCOUNTER 2025-04-30 23:16 | Inpatient (IN) | payer OTHER, SELFPAY ==
[2025-04-30] VITALS (11 sets, daily range): BP systolic 92–143; BP diastolic 34–117; PULSE 2–100; BMI 36.1
--- NOTE | 2025-04-30 19:19 | ED.GENMED ---
History of Present Illness
General
Chief Complaint: Skin Problem
Time Seen by Provider: 04/30/25 19:10
Nursing documentation reviewed up to this point in time: agreed with
History of Present Illness
History of Present Illness:
50-year-old male presents to the ER for evaluation of chest pain, shortness of breath and pain to his right lower extremity after he injured his toe a few days ago. Patient has limited mobility status post CVA with resultant right hemiplegia. He
states that he is been taking his medications as prescribed but over the past few days has been feeling shortness of breath and a feeling of pressure on his chest. He also admits to feeling a lot of emotional distress due to the recent in the
family. He has limited ability to care for the wound on his foot and has had no treatment for it so far. He reports severe pain localized to his toe. He denies any prior history of congestive heart failure. He states that he has not been eating
well in the past 2 weeks and has gained weight.
In review of his electronic medical record, he had been admitted in the beginning of January 2025 for treatment of opioid use disorder along with cellulitis of the left lower extremity. At that time he had also had had hypertensive urgency and was
admitted on a Cardene drip. I reviewed his medication list at time of discharge and d/c summary dated 03/06/2025.
Past History
Past History
ED Past Medical History: CVA (Thalamic bleed), Other (Chronic back pain, prior substance abuse/opiates as well as methamphetamine, facial cellulitis) and Other (Methadone maintenance)
ED Past Surgical History: Orthopedic (Arthroscopy right knee) and Other (Intracerebral shunt)
Social History
Tobacco: Smoker
Alcohol: Occasional
Drug: Former user (Opiates as well as methamphetamines)
Personal:
Living: with family
Employment: Employed
Family History
Family History: Other (Noncontributory)
Phy Exam
Physical Exam
Physical Exam:
Patient is awake, alert, diaphoretic, appears disheveled and older than stated age, mucous membranes moist, no JVD, heart regular rate and rhythm not murmurs or ectopy, lungs with diminished air movement throughout, mild tachypnea and conversational
dyspnea, abdomen is obese, soft, nontender, bilateral lower extremities with symmetric 3+ edema to the knees, skin is thickened with heavy burden of debris along the bilateral lower extremities, right second toe with avulsion of the top layer of
skin for the entire digit up to the nail, nail is loosened at the nailbed, remaining tissue is erythematous with mild swelling in comparison to normal left toes, 2+ DP pulses present symmetric bilateral feet, limited movement right lower extremity,
GCS is 15, mild slurred speech which she reports is his baseline
Course
Orders/Labs/Results
Orders:
Orders
04/30/25 19:15
Toes 2 Views, Right [CR Toe(s) Min 2 Vw Right] Urgent
Comment:
Reason For Exam: 2nd toe trauma
O2 Therapy [RESP] Urgent
Nasal Cannula Liter Flow: 4 LPM
Titrate/Wean O2 to maintain O2 sat greater than (%): 92
04/30/25 19:16
Pulse Ox/cont/shift [RESP] Stat
Quantity: 1
04/30/25 19:17
CR Chest Portable - 1 View Urgent
Comment:
Reason For Exam: dyspnea
Reason Study Needs to be Portable: Patient Unstable
04/30/25 19:18
Electrocardiogram (*1) Urgent
Reason for Study: Chest Pain
EKG- Treatment ONCE
04/30/25 19:25
CefTRIAXone [Rocephin] 2,000 mg IV NOW STA
04/30/25 19:38
Complete Blood Count/With Diff Urgent
04/30/25 19:46
Lactic Acid Q4H
Comment: CANCEL 2nd LACTIC ACID IF 1st LACTIC ACID IS LESS THAN 2
NT-proBNP Urgent
PTT Urgent
Prothrombin Time Urgent
Troponin I Q3H
Blood Culture Q30M
ADRIAN Source: Blood/Venous
Specimen Description:
Blood Culture Q30M
ADRIAN Source: Blood/Venous
Specimen Description:
04/30/25 20:09
Bipap [RESP] Urgent
Patient to use own unit?: No
Inspiratory Pressure (cm H2O): 15
Expiratory Pressure (cm H2O): 5
04/30/25 20:17
Comprehensive Metabolic Panel Urgent
Magnesium Urgent
04/30/25 20:27
Sterile Water [Sterile Water For Injection] 20 ml .ROUTE .STK-MED
04/30/25 20:31
ABG [Arterial Blood Gas] Urgent
%Oxygen/Room Air: 4 LNCO2
04/30/25 20:40
Drug Screen, Urine [Urine Drug Abuse Screen] Urgent
Urinalysis Reflex To Culture Urgent
04/30/25 20:42
Ondansetron Injectable [Zofran] 4 mg IV NOW STA
04/30/25 21:00
0.9% Sodium Chloride 1000 ml [Nss] 1,000 ml IV BOLUS
04/30/25 21:22
0.9% Sodium Chloride 1000 ml [Nss] 1,000 ml IV BOLUS
04/30/25 23:30
Lactic Acid Q4H
Comment: CANCEL 2nd LACTIC ACID IF 1st LACTIC ACID IS LESS THAN 2
Abnormal Lab Results
04/30/25 04/30/25 04/30/25
19:38 19:46 20:17
WBC 20.9 H 10^3/uL
(4.8-10.8)
Hct 38.5 L %
(39.0-52.0)
MCV 78.7 L fL
(80.0-94.0)
RDW 15.7 H %
(11.5-14.5)
MPV 11.2 H fL
(7.4-10.4)
Abs Immat Gran (auto) 2.4 H 10^3/uL
(0-0.05)
Absolute Neuts (auto) 16.2 H 10^3/uL
(1.4-6.5)
Absolute Lymphs (auto) 0.8 L 10^3/uL
(1.2-3.4)
Absolute Monos (auto) 1.4 H 10^3/uL
(0.1-0.6)
Immature Gran % 11.7 H %
(0-0.5)
Neutrophils % 77.4 H %
(42.2-75.2)
Lymphocytes % 3.9 L %
(20.5-51.1)
PT 20.0 H Sec
(11.4-14.6)
APTT 38.3 H Sec
(23.4-35.0)
pH
pCO2
pO2
HCO3
Carbon Dioxide 15 L mmol/L
(22-30)
BUN 57 H mg/dl
(9-20)
Creatinine 6.9 H* mg/dL
(0.7-1.3)
Glucose 162 H mg/dl
(70-99)
Calcium 8.2 L mg/dl
(8.4-10.2)
Total Bilirubin 2.8 H mg/dl
(0.2-1.3)
Albumin 3.3 L g/dl
(3.5-5.0)
04/30/25
20:31
WBC
Hct
MCV
RDW
MPV
Abs Immat Gran (auto)
Absolute Neuts (auto)
Absolute Lymphs (auto)
Absolute Monos (auto)
Immature Gran %
Neutrophils %
Lymphocytes %
PT
APTT
pH 7.33 L
(7.35-7.45)
pCO2 34 L mmHg
(35-48)
pO2 73 L mmHg
(83-108)
HCO3 17.9 L mmol/L
(21-28)
Carbon Dioxide
BUN
Creatinine
Glucose
Calcium
Total Bilirubin
Albumin
04/30/25 19:38
04/30/25 20:17
With blood count significantly elevated at 20,000. Creatinine abruptly elevated compared to prior labs from earlier this month, now 6.9 with elevation in BUN also.
Vital Signs
Initial and Last Documented VS:
Initial Vital Signs
Temp Pulse Resp BP Pulse Ox
98.6 F 96 20 129/93 96
04/30/25 17:00 04/30/25 17:00 04/30/25 17:00 04/30/25 17:00 04/30/25 17:00
Last Documented Vital Signs
Temp Pulse Resp BP Pulse Ox
98.6 F 96 20 100/58 90
04/30/25 17:00 04/30/25 21:03 04/30/25 17:00 04/30/25 21:03 04/30/25 20:45
MDM/Problems Addressed
Differential Diagnosis Includes:
Differential diagnosis to consider but not limited to sepsis, congestive heart failure, aspiration pneumonitis, cellulitis, open fracture/osteomyelitis of the right second toe, acute hypoxic respiratory failure along with other etiologies considered
Chronic conditions affecting care:
Prior CVA, poor mobility, hypertension, opioid use disorder, lymphedema
*Radiology
Radiology exam reviewed: preliminary read by ED provider (I independently viewed and interpreted portable chest x-ray showing small bilateral pleural effusions, no focal infiltrate) and other (I independently viewed and interpreted x-rays of the
right toes showing no definite fracture, soft tissue injury only, extensive degenerative changes)
*Pulse Oximetry
SaO2: 96
Oxygen Mode of Delivery: Room air
Patient hypoxic: no
Comment: Shortly after arriving in the room, patient had a sip of water and then coughed and was then hypoxic. Patient placed on 4 L nasal cannula oxygen, now satting 96%
*EKG
Interpreted by ED Provider?: Yes (I independently viewed and interpreted twelve-lead EKG showing normal sinus rhythm, rate 94, normal axis, nonspecific intraventricular conduction delay, no ST elevation, this is an abnormal tracing with significant
baseline artifact, no significant change compared to prior from 02/22/2025)
*Switching Operator Interpretation
Rate: normal (I independently viewed and interpreted rhythm strip showing normal sinus rhythm, no ectopy)
*Critical Care Note
Total Time (30-74mins, 75-104mins- exclusive of procedures): 30 minutes used
comment:
30 minutes of critical care time utilized in reassessing patient and medication management given critical nature of acute illness
Data Reviewed
Review of Other/Old Records Reveals: Records (I reviewed inpatient hospitalist notes to review antibiotics from prior treatment of cellulitis-on note dated 02/23/2025 he was given Rocephin which she tolerated)
Update Note
Update Note:
I went to reevaluate patient after chest x-ray performed. He is still tachypneic with increased work of breathing. Will trial BiPAP and obtain ABG as chest x-ray shows minimal bilateral pleural effusions only. I discussed with patient prior
history of opioid use-he states he has not had any opiates since the beginning of March.
2046: Patient did not tolerate BiPAP. He reports that he is just feeling very anxious. If he feels worse with his breathing he will 'let us know'. Patient states that he is full code and would want to be intubated if things were to change. Will
place back on nasal cannula oxygen. Patient does admit to feeling severely anxious and has received 0.5 mg Ativan in the past. Will provide. I discussed with patient need for CT angio to rule out PE given hypoxia and work of breathing. He does
report having had vomiting in the past from IV contrast. Will give Zofran prior to study.
2049: Chemistries resulted, new acute renal failure with creatinine 6.9. Potassium is normal. IV fluids ordered. CT canceled, suspect severe dehydration/metabolic etiology driving respiratory distress. Will discuss with hospitalist for admission
ED Attending Note
-
Portions of this chart may have been created with voice recognition software.� Occasional wrong word or��sound alike� substitutions may have occurred due to the inherent limitations of voice recognition software.
Discharge Plan
Departure
Patient Disposition: Admit
Date of Disposition: 04/30/25
Time of Disposition: 21:32
Admit to: ICU
Presentation/result/management discussed w/ accepting MD/DO: Hospitalist
Discharge Problem:
Acute kidney failure, Adult failure to thrive, Acute respiratory distress, Acute hypoxic respiratory failure, nonhealed wound
Prescriptions:
No Action
carvedilol 25 mg Tablet
25 mg PO BID Qty: 0 0RF
spironolactone 50 mg Tablet
50 mg PO DAILY Qty: 0 0RF
losartan 50 mg Tablet
100 mg PO DAILY Qty: 0 0RF
acetaminophen [Tylenol Extra Strength] 500 mg Tablet
1,000 mg PO Q8 PRN (Reason: mild pain) Qty: 0 0RF
pantoprazole [Protonix] 40 mg tablet,delayed release (DR/EC)
40 mg PO DAILY Qty: 30 0RF
clonidine HCl 0.1 mg tablet
0.1 mg PO DAILY
Referrals:
Phong Ta MD [Family Provider, Family Practice]
Interventions
Interventions:
*Risk Screen - Suicide Last Done: 04/30/25 17:00
*General Assessment Last Done: 04/30/25 20:10
*Neglect/Abuse Screening Last Done: 04/30/25 17:00
*ED- Fall Risk Assessment Last Done: 04/30/25 19:54
*ED COVID-19 Vaccine History Last Done: 04/30/25 19:54
ED-Skin Assessment Last Done: 04/30/25 19:52
Discharge Date and Time
Print Language: KYRGYZ
[2025-04-30 20:11] LABS: Hematocrit 38.5 % (39.0-52.0); Hemoglobin 13.4 g/dL (13.0-18.0); Mean Corp Hgb Conc. 34.8 g/dL (33.0-37.0); Mean Corpuscular Volume 78.7 fL (80.0-94.0); Platelet Count 391 10^3/uL (130-400); Red Cell Dist. Width 15.7 % (11.5-14.5)
[2025-04-30 20:15] LABS: APTT 38.3 Sec (23.4-35.0); INR 1.65; PT 20.0 Sec (11.4-14.6)
[2025-04-30 20:28] LABS: Troponin I 0.018 ng/ml
[2025-04-30] MEDS: ROCEPHIN 2000 MG IV (20:28)
[2025-04-30 20:38] LABS: B.E. -7.1 mmol/L; HCO3 17.9 mmol/L (21-28); O2 Saturation % 96.9 % (94-98); PCO2 34 mmHg (35-48); PO2 73 mmHg (83-108)
[2025-04-30 20:38] LABS: Nucleated Red Blood Cells % 0 % (-)
[2025-04-30 20:48] LABS: ALT (SGPT) 18 U/L (0-50); AST (SGOT) 25 U/L (17-59); Albumin 3.3 g/dl (3.5-5.0); Alkaline Phosphatase 113 U/L (38-126); Blood Urea Nitrogen 57 mg/dl (9-20); Calcium 8.2 mg/dl (8.4-10.2); Carbon Dioxide 15 mmol/L (22-30); Chloride 105 mmol/L (98-107); Estimated Creatinine Clearance 19 ml/min; Glucose 162 mg/dl (70-99); Magnesium 2.0 mg/dl (1.6-2.3); Potassium 3.9 mmol/L (3.5-5.1); Sodium 138 mmol/L (135-145); Total Protein 6.7 g/dl (6.3-8.2); eGFR 9.14
[2025-04-30] MEDS: NSS 1000 IV ×2 (21:26)
[2025-04-30] MEDS: KCL 270 MEQ IV (23:11)
[2025-04-30] MEDS: SODIUM BICARBONATE 50 MEQ IV (23:11)
--- NOTE | 2025-04-30 23:16 | HPS.HSE ---
Family Physician
-
Family Physician: Phong Ta
Chief Complaint
-
Chest Pain, SOB, R Toe Pain
History of Present Illness
Patient is a 50y M with PMH significant for opioid use disorder, CVA, hypertension and chronic venous stasis dermatitis who presents to ED complaining of chest pain, SOB and R 2nd toe pain. Patient states that the tow pain was his primary reason
for presentation. He arrived in apparent distress and admits that he did have SOB and chest pain at that time. He states that he 'feels better' despite continuing to appear dyspneic with increased work of breathing. BiPAP was trialed in the ED;
however, patient did not tolerate this. Patient states that he has been SOB for 'a few days'. He denies any cough, fevers / chills. He notes that he has not been eating or drinking well. he has continued to take his usual prescription
medications.
Patient was last admitted here 02/20 - 03/06 secondary to opioid use disorder and withdrawal symptoms. Patient states that he has used no opioids - including recommended Suboxone / buprenorphine - since that hospitalization.
He reports that a close family of an overdose last week.
Patient denies any injury or trauma to me - though he reported to ED that he 'banged' his R foot last week resulting in current injury.
Patient has a dressing on his L lower leg as well which he states was placed at a rehab some time ago.
Medical History
Past Medical History
Past Medical History: Reports Other
Additional Past Medical History:
Opioid Use Disorder
Hypertension
Thalamic CVA (01/2024)
Acquired Hydrocephalus
Obesity
Chronic Venous Stasis Dermatitis
Past Surgical History: Reports Other
Additional Past Surgical History:
KETTLEMAN Shunt Placement
R Knee Arthroscopy
Social History
Tobacco: Former Smoker
Alcohol: None
Drug: Former User (Last use January 2025)
Family History
Family History: Not pertinent
Allergies / Home Medications
Allergies reflects when Allergies were last updated in [employer].
Home Medications with original date entered in [employer]
Allergy/Medication List:
Allergies
Allergy/AdvReac Type Severity Reaction Status Date / Time
clindamycin Allergy Unknown Verified 04/30/25 16:59
Corticosteroids Allergy Unknown Verified 04/30/25 16:59
(Glucocorticoids)
diphenhydramine HCl (From Allergy Unknown Verified 04/30/25 16:59
Benadryl)
hydrocodone bitartrate (From Allergy vomiting Verified 04/30/25 22:45
Vicodin)
hydroxyzine (Hydroxyzine) Allergy Unknown Verified 04/30/25 16:59
Iodinated Contrast Media Allergy Vomiting Verified 04/30/25 22:45
peach Allergy Tongue Verified 04/30/25 16:59
Swelling
Penicillins Allergy Shortness Verified 04/30/25 16:59
of Breath;
tolerated
cefepime
sulfamethoxazole (From Allergy Unknown Verified 04/30/25 16:59
Bactrim)
tramadol Allergy 'throat Verified 04/30/25 16:59
swells up'
trimethoprim (From Bactrim) Allergy Unknown Verified 04/30/25 16:59
Home Medications
acetaminophen 500 mg tablet (Tylenol Extra Strength) 1,000 mg (2 x 500 mg) PO Q8 PRN mild pain #0 tabs 03/06/25
carvedilol 25 mg tablet 25 mg PO BID Blood pressure #0 tabs 03/06/25
losartan 50 mg tablet 100 mg (2 x 50 mg) PO DAILY Blood pressure #0 tabs 03/06/25
pantoprazole 40 mg tablet,delayed release (Protonix) 40 mg PO DAILY Gastrointestinal issue #30 tabs 03/06/25
spironolactone 50 mg tablet 50 mg PO DAILY Blood pressure #0 tabs 03/06/25
clonidine HCl 0.1 mg tablet 0.1 mg PO DAILY Blood pressure 04/30/25
Review of Systems
-
History Source: Patient
A 12 point ROS was completed and negative except as noted: Yes
Constitutional: Reports Fatigue; Denies Fever or Chills
EENT: Denies Sore Throat
Respiratory: Reports Trouble Breathing; Denies Cough or Hemoptysis
Cardiac: Reports Chest Pain; Denies Diaphoresis, Palpitations or Syncope
Abdomen/GI: Denies Abdominal Pain, Nausea, Vomiting or Diarrhea
: Reports Difficulty Voiding and Other (Decreased urination.); Denies Flank Pain or Bleeding
Musculoskeletal: Reports Joint Pain and Edema
Neurological: Reports Weakness; Denies Dizzy or Headache
Psych: Reports Depression and Anxiety
Physical Exam
Vital Signs
Vital Signs
Temp Pulse Resp BP Pulse Ox
98.6 F 96 20 100/58 94
04/30/25 17:00 04/30/25 21:03 04/30/25 17:00 04/30/25 21:03 04/30/25 22:45
Physical Exam
General: Other (Ill-appearing / pale / diaphoretic 50y M in moderate distress with increased WOB / accessory muscle use.)
HEENT: Other (Dry MM. Neck supple.)
Respiratory: Other (Decreased BS at bases. Tachypnea. No focal W/R/R.)
Cardiac: S1/S2 and Tachycardia; No Murmur
GI: Other (Obese, not tender. Pos BS.)
Musculoskeletal: Other (Chronic venous stasis skin changes with hyperkeratosis / scaling. Wound / skin breakdown at distal aspect of R 2nd toe with bloody discharge. No purulence. 3-4+ lymphedema.)
Neuro: AO x 3 and Other (R weakness and slurred speech from prior CVA. No new focal deficits.)
Laboratory Results
-
04/30/25 19:38
04/30/25 20:17
Laboratory Results
PT 20.0 Sec (11.4-14.6) H 04/30/25 19:46
INR 1.65 04/30/25 19:46
APTT 38.3 Sec (23.4-35.0) H 04/30/25 19:46
pH 7.33 (7.35-7.45) L 04/30/25 20:31
pCO2 34 mmHg (35-48) L 04/30/25 20:31
pO2 73 mmHg (83-108) L 04/30/25 20:31
HCO3 17.9 mmol/L (21-28) L 04/30/25 20:31
Lactic Acid 2.0 mmol/L (0.7-2.0) 04/30/25 19:46
Total Bilirubin 2.8 mg/dl (0.2-1.3) H 04/30/25 20:17
AST 25 U/L (17-59) 04/30/25 20:17
ALT 18 U/L (0-50) 04/30/25 20:17
Alkaline Phosphatase 113 U/L (38-126) 04/30/25 20:17
Troponin I 0.018 ng/ml 04/30/25 19:46
Troponin I Cancelled 04/30/25 19:46
Impression/Plan
-
A/P: Patient is a 50y M with PMH significant for hypertension, CVA and opioid use disorder who presents to ED complaining of chest pain, dyspnea and R toe pain.
SINDY / ARF
Anion Gap Metabolic Acidosis / Uremia
- Admit for further evaluation and treatment.
- SCr = 6.9 compared to baseline 0.7 last month.
- Bladder scan for 0 urine. Patient reports decreased urine output for some time.
- Poor PO intake + antihypertensive meds / losartan / spironolactone.
- Hold all meds acutely.
- Aggressive IVF support. NaHCO3 for now - follow for improvement in lytes / respiratory status.
- Bladder scan protocol and monitor for urine output, improved renal function, labs / lytes, etc.
- Nephrology evaluation for additional recommendations.
- Check urine studies when able.
Chest Pain / SOB
Hypoxemic Respiratory Failure
- EKG without acute ischemia. Initial troponin unremarkable.
- Patient states that he feels improved - though he continues to appear to be in distress.
- Continue to follow troponin. Monitor for any new / worsening symptoms.
- CXR without focal infiltrate / evident abnormality - ? L base effusion / opacity.
- ? respiratory status secondary to metabolic derangements / acidosis.
- Unable to rule out PE given SINDY.
- Will begin IV heparin for now.
- Check LE dopplers. Echo in AM. Follow for any new symptoms / complaints.
- O2 support as needed with midflow / high flow.
- Patient may require intubation / vent support if he fatigues. Did not tolerate BiPAP in the ED.
R 2nd Toe Wound / Cellulitis
Chronic Venous Stasis Dermatitis
- ? antecedent trauma - varying stories from patient.
- IV abx for now.
- Patient meets criteria for sepsis - though many SIRS criteria may be due to ARF / acidosis.
- Wound care evaluation.
- X-ray done in the ED - formal report pending.
- Lower legs with scaling / chronic skin changes but no evident wound / abscess / etc.
- Local care.
- Doppler as noted above to rule out DVT.
Opioid Use Disorder
- Patient states that last use was January / March 2024.
- UDS when able to do so (no urine yet).
- Ativan as needed for agitation / restlessness.
- Would not expect continued opioid withdrawal symptoms / process > 1 month from last use.
History of CVA
Acquired Hydrocephalus s/p KETTLEMAN Shunt
- Stable. Patient is cognitively intact. Chronic weakness / speech abnormality with no new neurologic symptoms.
- Follow for any new symptoms / complaints.
Benign Hypertension
- Presently hypotensive and in SINDY / ARF.
- Hold all usual outpatient medications - including ARB, Aldactone, etc.
Morbid Obesity secondary to excess calories
- Affects all aspects of care.
- Encourage healthy diet and increased activity with goal of weight reduction.
DVT Prophylaxis: IV Heparin for now
Code Status: Full
[2025-04-30 23:25] LABS: COVID-19 Antigen Negative (Negative)
[2025-05-01] VITALS (40 sets, daily range): BP systolic 48–140; BP diastolic 16–105; PULSE 2–93; BMI 35.6
--- NOTE | 2025-05-01 01:03 | W.PN.UPDATE ---
Addendum entered and electronically signed by TORRES Huertas 05/01/25 04:54:
[id number] Patient respiratory pattern tenuous with accessory muscle usage and respiratory rate in the 30 to 40s. Patient meditating well. He states, �He states�his breathing has improved�. �Discussed concern for fatigue and no improving in breathing
since being in the ICU and concerned he is heading towards intubation. �He expressed to me that he does not want to be intubated at the current time. � Readdress code status of�DNI and DNR status. �He stated, he wants CPR and defibrillation, but
only intubation if he arrests.� Readdress parameters of DNI. �He states wants to to have time to think about it but does not want to be intubated at this current time. ��Patient is of sound mind and answer all questions appropriately. CHAYA Jarvis
Rickman at bedside witness whole conversation.�
Original Note:
Update Note
Progress Note Update
On Assessment: Tick found on left ankle. Tick removed and kept in cup (If need for lab evaluation). Lyme PCR and Babesia smear ordered.�
[2025-05-01 01:14] LABS: Glucose - Point of Care 139 mg/dl (70-99)
[2025-05-01 01:28] LABS: Hematocrit 34.7 % (39.0-52.0); Hemoglobin 11.7 g/dL (13.0-18.0); Mean Corp Hgb Conc. 33.7 g/dL (33.0-37.0); Mean Corpuscular Volume 80.1 fL (80.0-94.0); Platelet Count 362 10^3/uL (130-400); Red Cell Dist. Width 15.7 % (11.5-14.5)
[2025-05-01] MEDS: HEPARIN 25000 UNITS/250 ML IV ×3 (01:37→23:22)
[2025-05-01] MEDS: HEPARIN 4000 UNITS IV (01:37)
[2025-05-01 01:43] LABS: APTT 34.9 Sec (23.4-35.0)
[2025-05-01 01:48] LABS: Blood Urea Nitrogen 58 mg/dl (9-20); Calcium 7.1 mg/dl (8.4-10.2); Carbon Dioxide 17 mmol/L (22-30); Chloride 109 mmol/L (98-107); Estimated Creatinine Clearance 20 ml/min; Glucose 138 mg/dl (70-99); Potassium 4.4 mmol/L (3.5-5.1); Sodium 142 mmol/L (135-145); eGFR 10.01
[2025-05-01 01:53] LABS: Troponin I < 0.012 ng/ml
[2025-05-01 01:56] LABS: Urine Character Cloudy (Clear)
[2025-05-01] MEDS: SODIUM BICARBONATE 1150 MEQ IV ×2 (02:06→08:04)
--- NOTE | 2025-05-01 02:50 | PTCARENOTE ---
Received patient AAOx3, following commands, denying pain. NS/ST 90s-100s, BP 90s-100s/50s-60s, normothermic. +2 RLE edema and +1 LLE, thick, brown skin on b/l LE. Weak pedal pulses b/l. On 60 L, 60% HFNC. Tachypneic to the 40s-50s, saturating
92-95%. Lung sounds diminished throughout with crackles in the bases. Abdomen soft, round, obese, hypoactive bowel sounds. Cheng placed for critical I/Os. Right second toe wound infected with yellow, purulent drainage and b/l legs with brown, thick,
skin. Wound consulted. 2 peripheral IVs placed, patent, WNL. Heparin and bicarb gtt started. Call finley within reach. Labs sent, CHG bath done.
[2025-05-01 03:15] LABS: Urine Squamous Cell None seen /LPF (Few)
[2025-05-01 03:17] LABS: Urine White Cell 70-80 /HPF (0-5)
[2025-05-01 04:02] LABS: Venous Blood Gas B.E. -7.3 mmol/L (-4 to +4); Venous Blood Gas O2 Sat % 100.0 %
[2025-05-01 04:04] LABS: Venous Blood Gas O2 Therapy 60
[2025-05-01 04:07] LABS: Hematocrit 33.7 % (39.0-52.0); Hemoglobin 11.6 g/dL (13.0-18.0); Mean Corp Hgb Conc. 34.4 g/dL (33.0-37.0); Mean Corpuscular Volume 80.2 fL (80.0-94.0); Platelet Count 359 10^3/uL (130-400); Red Cell Dist. Width 15.8 % (11.5-14.5)
[2025-05-01 04:32] LABS: ALT (SGPT) 16 U/L (0-50); AST (SGOT) 32 U/L (17-59); Albumin 2.8 g/dl (3.5-5.0); Alkaline Phosphatase 75 U/L (38-126); Blood Urea Nitrogen 63 mg/dl (9-20); Calcium 7.2 mg/dl (8.4-10.2); Carbon Dioxide 18 mmol/L (22-30); Chloride 109 mmol/L (98-107); Estimated Creatinine Clearance 20 ml/min; Glucose 131 mg/dl (70-99); Magnesium 2.0 mg/dl (1.6-2.3); Potassium 4.8 mmol/L (3.5-5.1); Sodium 141 mmol/L (135-145); Total Protein 5.8 g/dl (6.3-8.2); eGFR 10.01
[2025-05-01 04:36] LABS: Troponin I < 0.012 ng/ml
[2025-05-01] MEDS: CALCIUM GLUCONATE 130 MG IV ×2 (05:47→21:43)
--- NOTE | 2025-05-01 07:10 | CON.INTV ---
Addendum entered and electronically signed by Mariana Callahan DO 05/01/25 12:00:
R Toe Gangrene, podiatry consult placed
Original Note:
Consultation
Consultation Request
Date/Time Consultation Requested: 05/01/25
Date/Time Consultation Performed: 05/01/25
Performing Provider: [place]
Reason for Consultation: Sepsis, w/d
Medical History
-
History of Present Illness:
Patient is a 50-year-old male with previous history of opiate use disorder, left thalamic intracranial hemorrhage, presenting to ER with complaints of chest pain, shortness of breath and right toe pain. He arrived in the ER in apparent
respiratory distress with increased work of breathing. He was tried on BiPAP but could not tolerate it. He was admitted here recently in January for opiate use disorder and withdrawal symptoms. UDS is positive for fentanyl, amphetamines,
benzodiazepines. Chest x-ray demonstrating mild left lower lobe pneumonia, he is on HFNC (PAO2 on ABG 73). Admitted to ICU for hypoxemia.
Of note, he has has R toe gangrene noted on exam, and visible tick as well which was placed to lab.
Past Medical History
Past Medical History: Other (see list below)
Social History
Tobacco: Non-smoker
Alcohol: None
Drug: IVDA
Family History
Family History: Reviewed & Not Pertinent
Allergies / Home Medications
Allergies
Allergy/AdvReac Type Severity Reaction Status Date / Time
clindamycin Allergy Unknown Verified 04/30/25 16:59
Corticosteroids Allergy Unknown Verified 04/30/25 16:59
(Glucocorticoids)
diphenhydramine HCl (From Allergy Unknown Verified 04/30/25 16:59
Benadryl)
hydrocodone bitartrate (From Allergy vomiting Verified 04/30/25 22:45
Vicodin)
hydroxyzine (Hydroxyzine) Allergy Unknown Verified 04/30/25 16:59
Iodinated Contrast Media Allergy Vomiting Verified 04/30/25 22:45
peach Allergy Tongue Verified 04/30/25 16:59
Swelling
Penicillins Allergy Shortness Verified 04/30/25 16:59
of Breath;
tolerated
cefepime
sulfamethoxazole (From Allergy Unknown Verified 04/30/25 16:59
Bactrim)
tramadol Allergy 'throat Verified 04/30/25 16:59
swells up'
trimethoprim (From Bactrim) Allergy Unknown Verified 04/30/25 16:59
Home Medications
�Medication �Instructions �Recorded �Confirmed �Last Taken �Type
acetaminophen 500 mg tablet 1,000 mg (2 x 500 mg) PO Q8 PRN 03/06/25 04/30/25 Unknown Rx
(Tylenol Extra Strength) mild pain #0 tabs
carvedilol 25 mg tablet 25 mg PO BID Blood pressure #0 tabs 03/06/25 04/30/25 Unknown Rx
losartan 50 mg tablet 100 mg (2 x 50 mg) PO DAILY Blood 03/06/25 04/30/25 Unknown Rx
pressure #0 tabs
pantoprazole 40 mg tablet,delayed 40 mg PO DAILY Gastrointestinal 03/06/25 04/30/25 Unknown Rx
release (Protonix) issue #30 tabs
spironolactone 50 mg tablet 50 mg PO DAILY Blood pressure #0 03/06/25 04/30/25 Unknown Rx
tabs
clonidine HCl 0.1 mg tablet 0.1 mg PO DAILY Blood pressure 04/30/25 04/30/25 Unknown History
Review of Systems
Vitals / Labs / Diagnostic Testing
Vital Signs
Temp Pulse Resp BP Pulse Ox
100 F 98 37 90/62 94
05/01/25 04:56 05/01/25 06:15 05/01/25 06:15 05/01/25 06:02 05/01/25 06:15
Lab Data
05/01/25 03:48
05/01/25 03:48
Laboratory Results
0704/30/25 05/01/25
19:46 20:31 01:15
PT 20.0 H
INR 1.65
APTT 38.3 H 34.9
pH 7.33 L
pCO2 34 L
pO2 73 L
HCO3 17.9 L
O2 Delivery Level
Microbiology
04/30/25 23:02 Nasal Swab Influenza Types A & B (GIORGIO) - Final
Negative for Influenza A & B, NAAT
Negative results must be combined with clinical observations
and patient history.
Nucleic Acid Amplification test (NAAT)performed on the
[employer] platform.
Diagnostic Testing:
Physical Exam
-
HEENT: Normocephalic and Anicteric
Cardiovascular: S1/S2, Regular Rhythm, Peripheral Edema (BL, chronic venous stasis changes noted ) and Other (R toe wound)
Respiratory: Clear and Non-Labored Respirations
GI: Soft and Distended (obese/protuberant)
Neurology: Awake, No Motor Deficits and Other (Lethargic)
Skin: Warm and Dry
General: Respiratory Distress (moderate, on BIPAP)
Assessment
-
Patient is a 50-year-old male with previous history of opiate use disorder, left thalamic intracranial hemorrhage, presenting to ER with complaints of chest pain, shortness of breath and right toe pain. He arrived in the ER in apparent
respiratory distress with increased work of breathing. He was tried on BiPAP but could not tolerate it. He was admitted here recently in January for opiate use disorder and withdrawal symptoms. UDS is positive for fentanyl, amphetamines,
benzodiazepines. Chest x-ray demonstrating mild left lower lobe pneumonia, he is on HFNC (PAO2 on ABG 73). Admitted to ICU for hypoxemia.
Suspect acute opiate w/d
UDS +Fent
LLL PNA
Acute hypoxic respiratory failure on high flow nasal cannula
Metabolic acidosis
Acute kidney injury, creatinine 6.9
Leukocytosis
Severe sepsis, bacteremia
Possible UTI
Tick bite
Conditions present SAW MAN
Cellulitis left lower extremity
Hypertensive urgency
Opiate abuse with withdrawal
Microscopic hematuria, Albuminuria noted in the urine
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
Leukocytosis- elevated since 2008 labs
Chronic back pain
Morbid obesity with a BMI of 39
History of nephrolithiasis
Possible sleep apnea-needs outpatient study asleep
ADHD
Hepatic steatosis per prior imaging
Active smoker
Plan
Had been awake/alert, MS declining
Psychiatric history noted above including IVDU, ADHD history
UDS + multidrug use, CVA history
Denies pain at this time.
Pain/sedation: PRN
RASS goals: 0
Hemodynamically stable, not requiring pressors.
Cardiac history reviewed--HTN, CVA
No prior ECHO for review, will obtain new study
Monitor on telemetry
Oxygen needs: on HFNC --> BIPAP, not improving
Decision for intubation, anesthesia alerted
Vent setting reviewed: AC 500/18/02+ orders placed
Prior history of lung disease: likely has FRANKO not diagnosed
Supplemental O2 as indicated to maintain sats > 89%
CXR/CT to be obtained post intubation
NPO, resume diet when able
Halal Meat Packer recommendations
Aspiration precautions, HOB > 30 degrees
Speech therapy eval can be considered if at elevated risk
GI prophylaxis if indicated for mechanical ventilation >48 hours, prior history of GERD, stress ulcer formation in the critically ill
SINDY present
Renal consult, planning for HD likely
Void trials
Follow urine output, critical I/Os
Fever and increased WBC on presentation, suspect underlying sepsis
Started on empiric antibiotics
Cultures sent/pending
Blood-- GPC + await further final results
Urine pending
Tick noted, serology sent
Follow fever trend, WBC count
CBC stable, no signs of bleeding or coagulopathy.
DVT prophylaxis as assessed based on risk, including mechanical SCDs
Can transfuse if indicated for Hb <7, plt < 10
INR WNL
No prior h/o diabetes or thyroid disease
Monitor accuchecks PRN/SS coverage if needed
HbA1c 5.7
Diagnostic Data
Chest X-Ray: 04/30/25- Mild left lower lobe pneumonia. Trace bilateral pleural effusions.
CT Scan: CT head 01/2025: There is a ventricular shunt present which enters from the right superior frontal region, with tip of the shunt to the junction of the inferior frontal horn of the right lateral ventricle and the third ventricle. There is
decreased size of the right lateral ventricle when compared to the left, and slight shift of the septum pellucidum toward the left, and findings suggest peripheral arterial shunting of the right lateral ventricle when compared to the left. There is
no evidence of acute intracranial hemorrhage. In the inferior aspect of the left thalamus, there is a small focal area of decreased density measuring 1.5 cm transverse by 0.8 cm AP, compatible with encephalomalacia from previous region of
intracranial hemorrhage. No abnormal extra-axial collection is identified. There is 80% opacification of the sphenoid sinus, slightly improved from previous examination. The rest of the paranasal sinuses appear clear. The mastoid air cells appear
clear.
AP 02/23/25- 2 small nephroliths within the posterior upper pole the right kidney. As described, evidence for blood products/hematoma within the calyces of the upper pole of the right kidney. Wall of the urinary bladder appears mildly diffusely
thickened, which may be on the basis of incomplete distention, but correlate clinically to exclude cystitis. Mild hepatomegaly with no focal hepatic lesion. Thickening of the wall the duodenum extending from the duodenal bulb contiguously through
the distal third portion, with stranding of the adjacent fat. Main differential considerations of primary duodenitis, versus reactive duodenitis from pancreatitis. There is mild stranding of the fat adjacent to the pancreatic head with no focal
collection. Mild to moderate subcutaneous edema greatest in the lateral flanks.
Echo:
PFT's:
Reports and relevant images were personally reviewed.
Critical Care time 81 mins -- The patient is admitted for acute critical illness for the treatment of vital organ failure and/or prevention of further life-threatening conditions. Total care includes time spent in review of history, physical exam,
medications, hemodynamic/ventilator parameters, laboratory data, imaging and discussion with house staff, pharmacy, respiratory therapy, employment attorney, and nursing.
--- NOTE | 2025-05-01 07:42 | PTCARENOTE ---
Addendum entered by Carlos A Raymond RN 05/01/25 08:48:
Hand Miter Operator bedside --> will trial PAP therapy as pt. is refusing intubation.
Addendum entered by Carlos A Raymond RN 05/01/25 08:21:
Pt. refusing intubation, RR in 50s, telephone information supervisor updated.
Original Note:
Assumed care 0700.
Pt. in visual resp. distress, RR in 40s, currently on HFNC.
Notifying telephone information supervisor of clinical state. Awaiting orders.
[2025-05-01] MEDS: NSS (PRESERVATIVE FREE) 10 ML IV (08:04)
[2025-05-01] MEDS: PROTONIX IV 40 MG IV (08:04)
[2025-05-01 08:11] LABS: APTT 61.3 Sec (23.4-35.0)
[2025-05-01 08:32] LABS: Glycohemoglobin (HgbA1c) 5.7 % (4.0-5.6)
--- NOTE | 2025-05-01 08:32 | WOUNDNOTE ---
[facility] RN note: Patient admitted with SINDY, metabolic acidosis, respiratory failure. R 2nd toe pain.
See H&P for complete history.
PMH: opioid use disorder, 01/2025 stay for withdraw (patient stating he hasn't used since discharge), CVA, HTN, venous stasis dermatitis, obesity, PLANT CONTROL AIDE shunt.
Wound Location and type/assessment: Patient admitted with: R distal 2nd toe necrotic odorous ulcer. +LE edema (R>L, patient states RLE always more swollen that LLE), dermal linear ulcer R proctor suspect r/t friction and edema. R posterior lateral
calf with weeping skin. LE venous Doppler study on order. +Pedal pulses heard via portable Doppler. Unable to assess sacrum d/t patient is very SOB. He is going to be ventilated via Bipap soon. Discussed with CHAYA Strauss who will assess patient's
sacral/buttocks and will notify this advertising copy writer of any skin concerns.
Appetite: on clear liquid diet currently.
Pressure redistribution devices in place: Centrella Max air bed. Patient cannot turn himself in bed currently.
Plan: R 2nd toe dressing changed. Heels off bed with pillows. Reported necrotic toe ulcer appearance with odor with patient clerical assistant Dr. Callahan who was in to see patient and recommended podiatry consult when medically appropriate.
Will confirm orders with hospitalist and update nurse.
Updated care plan and will follow as needed.
Recommend follow up at wound care center upon discharge.
--- NOTE | 2025-05-01 08:49 | WOUNDNOTE ---
R 2ND TOE
--- NOTE | 2025-05-01 08:49 | WOUNDNOTE ---
R 2ND TOE
--- NOTE | 2025-05-01 08:51 | WOUNDNOTE ---
R 2ND TOE (DISTAL)
--- NOTE | 2025-05-01 08:52 | WOUNDNOTE ---
R CALF (LATERAL ANTERIOR)
--- NOTE | 2025-05-01 08:58 | WOUNDNOTE ---
[facility] RN note: Updated Dr. Hoskins re: patient's R necrotic 2nd toe ulcer, LE edema, pedal pulses heard via portable Doppler, discussed podiatry consult with Dr. Callahan. Dr. Hoskins requested knee high Brody wraps (can be applied after Doppler done) and
approved local wound care. Care plan to be updated. Will follow as needed.
[2025-05-01] MEDS: HEPARIN 10000 UNITS IV (09:16)
--- NOTE | 2025-05-01 09:42 | W.PN.HOSP.TC ---
Today's Communication/Plan
-
Intubation
Hemodialysis urgent
Needs permacath
Hold off on antihypertensives
Ventilator support
Podiatry evaluation
LENNY
Rpt BC
Assessment / Plan
Assessment / Plan
50-year-old man presented to the hospital with right lower extremity after he injured his toes a few days ago. He has also been feeling short of breath and a pressure in his chest. He has lost a friend recently to drugs. This is per ER records.
I spoke to patient's mom as I was not able to reach his or daughter listed as contacts. Per mom after his discharge from here in March he went to the rehab and signed himself out after 2 days. He went to mom's place and lives with her.
Patient's spouse was admitted to the rehab around the same time he was and she still remains in the rehab. Mom states that he goes to [place] and does not listen to her. He yells at her often. She requests some kind of help to control him.
Requested a psychiatry evaluation to see if he is able to make his decisions or if he needs a guardian from the critical access hospital. She feels helpless about his situation.
When I walked into the patient's room he was on a BiPAP mask and completely unresponsive.(Reportedly per chart patient refused intubation when he came in. He remains a full code as per the chart.) I was unable to reach patient's spouse or
daughter. I was likely able to reach patient's mother who stated that he is not always in the sound mind to make decisions which I agree in the setting of sepsis and tachypnea as well as as urine drug screen showing positive screening for fentanyl,
amphetamines. Mom wants to proceed with intubation and asked to do what ever it takes to 'save him'.
On examination
Patient was extremely tachypneic breathing at a rate of 50s
Completely unresponsive on BiPAP mask to painful stimulus also
Pupils were equal and reactive
Cardiovascular system S1-S2 tachycardic
Chest decreased breath sounds at bases
Abdomen soft and nontender
Bilateral lower extremity edema with skin thickening, dry skin, multiple small areas of skin breaks noted. Right second toe with ulceration, edema and oozing. Decreased pulses felt bilateral dorsalis pedis. Feet are warm to touch.
Small area of ecchymosis/hematoma on the proctor on the left side.
Patient could not cooperate for a neuroexam. Again he has a history of facial droop from previous stroke and pupils were equal and reactive.
Venous Dopplers lower extremity-no DVT noted
# Acute respiratory failure
VDRF
Multifactorial
Possible pneumonia, sepsis, metabolic acidosis. Cannot rule out PE.
Continue heparin drip
Antibiotics cefepime vancomycin and Flagyl
Ventilator support
Check ECHO
# Sepsis present on admission
Gram-positive bacteremia
Normal lactic acid level
Identification pending
Repeat blood cultures ordered for today
Vancomycin cefepime and Flagyl
ID evaluation
Source is likely foot
# Right second toe infection
Podiatry to evaluate
LENNY with decreased pulses
Antibiotics as above
# Acute kidney injury
Minimal urine output
Check urine sodium and protein creatinine ratio
Ultrasound of the kidneys with no obstruction
Urinary diversion with Cheng catheter
Nephrology evaluation as patient may need acute hemodialysis
# Drug abuse urine drug screen positive for fentanyl, , benzos,amphetamines and methamphetamines
Patient was discharged to a rehab last admission however he stayed there only for 2 days and signed himself out
# Metabolic acidosis-likely secondary to renal failure
# Multidrug resistant hypertension-currently blood pressure stable without medicines. Watch off of medicines.
Patient was on Coreg, losartan, clonidine, Aldactone as outpatient
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 Transferred to [facility] . Pt says he was there for 3 months and has weakness of right side and facial droop, check head CT
#Chronic back pain
#Morbid obesity with a BMI of 35- Weight loss recommended
#History of nephrolithiasis
#Possible sleep apnea-needs outpatient study as OP.
#ADHD
#Hepatic steatosis per prior imaging-outpatient follow-up
#Active smoker-cessation counseling when able
# Hypoalbuminemia
#DVT prophylaxis-heparin drip
#Full code
Discussed with critical care nursing, geophysical computer, tie carrier, respiratory at bedside
Spoke to patient's mother discussed that patient is critically ill and extremely sick at this point. Discussed about current situation, intubation, need for dialysis.
Total Critical Care Time 45 minutes. I was immediately available to the patient and staff. I personally examined, reviewed labs, diagnostic images/reports, interpretations, treatment plans, discussed patient care with other providers and family ,
entered orders as appropriate and documented the medical record.
Prognosis guarded
Anticipated Discharge: > 48 hours
Subjective/Interval History
-
Date of Service: May 01, 2025
Objective Data
-
Labs:
Laboratory Results
05/01/25 05/01/25 05/01/25
01:15 01:17 03:48
WBC 15.4 H 12.8 H
Hgb 11.7 L 11.6 L
Hct 34.7 L 33.7 L
Plt Count 362 359
APTT 34.9
Sodium 142 141
Potassium 4.4 4.8
Chloride 109 H 109 H
Carbon Dioxide 17 L 18 L
BUN 58 H 63 H
Creatinine 6.4 H* 6.4 H*
Glucose 138 H 131 H
Calcium 7.1 L 7.2 L
Total Bilirubin 2.0 H
AST 32
ALT 16
Alkaline Phosphatase 75
05/01/25 05/01/25
07:50 14:00
WBC
Hgb
Hct
Plt Count
APTT 61.3 H Pending
Sodium
Potassium
Chloride
Carbon Dioxide
BUN
Creatinine
Glucose
Calcium
Total Bilirubin
AST
ALT
Alkaline Phosphatase
Vital Signs:
Vital Signs
Temp Pulse Resp BP Pulse Ox
100.3 F 91 40 121/16 91
05/01/25 07:50 05/01/25 09:00 05/01/25 09:00 05/01/25 09:00 05/01/25 09:00
I&O
04/30/25 05/01/25 05/02/25
06:59 06:59 06:59
Intake Total 980 / 1150 510 / 510
Output Total 32 / 32 0 / 0
Balance 948 / 1118 510 / 510
--- NOTE | 2025-05-01 10:25 | W.PN.ANESINT ---
Anesthesia Intubation Note
- Intubation Note
Intubation Note:
Diagnosis: Sepsis, respiratory distress,tachypneic
Blade: Glidescope #4
Tube Size: 8.0 Hi lo
Depth: 24 cm at right lip
Glidescope Used: yes
Other Airway Adjustments:
O2 sat prior to intubation 93% O2 sat after intubation 98 %
Start time- 0950- Stop 1025
Pre-Oxygenated: on bipap on arrival, easy ambu ventilation
Portable Chest X-Ray: ordered
RSI:
Suctioned:no
Bilateral Breath Sounds Confirmed: yes, +ETCO2 via stat cap
Vent Settings: see ICU/respiratory record
Propofol 110 mg IV given for intubation.
Phenylepherine 300 mcgs given and Levophed 16 mcgs given after intubation over a period of 20 minutes. Levo gtt started by PATIENT FINANCIAL REPRESENTATIVE, fluid bolus infusing.
Left in care of ICU/respiratory team.
Settings per ___Attending Physician
--- NOTE | 2025-05-01 10:28 | PTCARENOTE ---
Addendum entered by Carlos A Raymond RN 05/01/25 10:58:
x2 fluid bolus given.
remains hypotensive norepi at 14mcg.
IRAD bedside to place trial line.
Nephro rounded orders to start CVVHD when line is placed.
Vasopressin added.
Original Note:
Pt. became unresponsive to sternal rub --> Decision made to intubate.
ELASTIC YARN TWISTER HELPER bedside intubated placed on CMV.
-Intubated w. Diprivan
-No paralytics given.
Hypotensive post induction
X3 phenyl IVP
x1 Ephedrine
x2 Levo IVP
Started on Norepi gtt.
[2025-05-01 10:41] LABS: B.E. -5.3 mmol/L; HCO3 20.6 mmol/L (21-28); O2 Saturation % 100.0 % (94-98); PCO2 41 mmHg (35-48); PO2 200 mmHg (83-108)
--- NOTE | 2025-05-01 10:53 | PHA.VAN.IN ---
Addendum entered and electronically signed by Tonya Bardales [facility] 05/01/25 21:21:
Random level ordered and resulted at 5.4, though noted specimen was not protected from light and assay results may be affected. Will provide additional vanc 1500mg x1 now.
Addendum entered and electronically signed by Lalita Syed [facility] 05/01/25 15:56:
Reviewed case with pharmacy grad intern. Agree with assessment and plan below.
Original Note:
Assessment
- Assessment
Renal Function: SCR Appears Elevated from baseline
Historical Micro: History of MRSA infection (from cyst culture in 2010)
- Previous Dosing Experience
Previous Regimen: received 1500mg q12h x3 doses, then 1250mg q8h x3 doses
Date of Regimen: 04/27/2011-04/29/2011
Provided Trough of: 7.4
Patient's SCR is: Elevated compared to previous dosing experience (in 2010, was at baseline (0.8) - elevated at 6.4 at-present)
additionally received course in December 2021, dosed by level -- eventually received 3 scheduled doses of 1500mg q8h
Plan
- Plan
Initial / Loading Dose: vancomycin 2000mg x1 dose at 1223
Maintenance Regimen: dosing by level
Monitoring: random 05/02 0600 - will consider one tonight depending on clinical course
Pharmacokinetics Vancomycin I
- -
Patient Age: 50
Patient Sex: Male
Vancomycin Day #: 1
Indication: Bacteremia
Requesting Provider: Dr. Hoskins/Dr. Amador
Pertinent Antimicrobial Allergies:
clindamycin - reaction unknown
penicillins - shortness of breath; tolerated cefepime
trimethoprim/sulfamethoxazole - reaction unknown
Height / Weight:
Height 6 ft 3 in
Actual Weight 129.2 kg
Pertinent Past Medical History: IV NATI, BMI 36
- Vital Signs / Lab Results
Temp Pulse Resp BP Pulse Ox
100.3 F 91 40 121/16 98
05/01/25 07:50 05/01/25 09:00 05/01/25 09:00 05/01/25 09:00 05/01/25 10:00
Lab Results - Hematology
04/30/25 05/01/25 05/01/25
19:38 01:17 03:48
WBC 20.9 H 15.4 H 12.8 H
Lab Results - Chemistry
04/30/25 04/30/25 05/01/25
19:38 20:17 01:15
BUN Cancelled 57 H 58 H
Creatinine Cancelled 6.9 H* 6.4 H*
Estimated Creat Clear Cancelled 19 20
Albumin Cancelled 3.3 L
05/01/25
03:48
BUN 63 H
Creatinine 6.4 H*
Estimated Creat Clear 20
Albumin 2.8 L
04/30/25 05/01/25
19:46 01:17
Lactic Acid 2.0 1.4
Lab Results - Urine
05/01/25
01:32
Urine Nitrite (Reflex) Positive A
Leukocyte Esterase Rfl 1+ A
Urine WBC (Reflex) 70-80 A
Ur Squamous Epith Cells None seen
Urine Bacteria (Reflex) Many A
Microbiology Results
04/30/25 19:46 Blood Culture - Preliminary
Blood/Venous Staph aureus MRSA
Gram Stain - Preliminary
04/30/25 19:46 Blood Culture - Preliminary
Blood/Venous Positive culture in progress
Gram Stain - Preliminary
05/01/25 01:17 Blood Parasites Smear - Preliminary
Blood/Venous
04/30/25 23:02 Influenza Types A & B (GIORGIO) - Final
Nasal Swab Negative for Influenza A & B, NAAT
Negative results must be combined with clinical observations
and patient history.
Nucleic Acid Amplification test (NAAT)performed on the
[employer] platform.
[2025-05-01] MEDS: LEVOPHED 250 IV (10:55)
[2025-05-01] MEDS: NSS 250 IV ×2 (10:55)
[2025-05-01] MEDS: PRECEDEX 100 IV ×6 (10:56→22:16)
--- NOTE | 2025-05-01 11:23 | PTCARENOTE ---
Addendum entered by Carlos A Raymond RN 05/01/25 12:24:
Trial line placed --> Confirmed via CXR.
Nephro bedside orders for 4K bath to run even.
CVVHD circuit priming.
Original Note:
IRAD bedside for RIJ Trial line placement.
Dobhoff placed.
Awaiting CXR film and CVVHD order set.
--- NOTE | 2025-05-01 11:32 | CON.ID ---
Consultation
-
Date/Time Consultation Requested: 05/01/2025 0937
Date/Time Consultation Performed: 05/01/2025 1132
Requesting Provider: Dr. Callahan
Performing Provider: Dr. Amador
Reason for Consultation: Bacteremia; tick bite; right toe gangrene
Chief Complaint / Past History
History of Present Illness
Patrice Mera is a 50-year-old man being evaluated at the request of Dr. Callahan in regards to bacteremia. History is obtained from chart review alone as the patient is currently intubated.
The patient recently was admitted to [facility] from 02/20/2025 through 03/06/2025, during which time he was treated for left lower extremity cellulitis and opioid withdrawal.
He presented back to the emergency room on 04/30/2025 secondary to chest pain and shortness of breath, along with right lower extremity pain following an injury to his toe several days prior. He has a history of CVA with resultant right hemiplegia.
He has reported inability to care for the foot.
Past History
Additional Past Medical History:
CVA (thalamic bleed) with right hemiplegia
Chronic back pain
Substance abuse
Additional Past Surgical History:
Right knee arthroscopy
Intracerebral shunt
Allergy History:
clindamycin Allergy (Verified 04/30/25 16:59)
Unknown
Corticosteroids (Glucocorticoids) Allergy (Verified 04/30/25 16:59)
Unknown
diphenhydramine HCl (From Benadryl) Allergy (Verified 04/30/25 16:59)
Unknown
hydrocodone bitartrate (From Vicodin) Allergy (Verified 04/30/25 22:45)
vomiting
hydroxyzine (Hydroxyzine) Allergy (Verified 04/30/25 16:59)
Unknown
Iodinated Contrast Media Allergy (Verified 04/30/25 22:45)
Vomiting
peach Allergy (Verified 04/30/25 16:59)
Tongue Swelling
Penicillins Allergy (Verified 04/30/25 16:59)
Shortness of Breath; tolerated cefepime
sulfamethoxazole (From Bactrim) Allergy (Verified 04/30/25 16:59)
Unknown
tramadol Allergy (Verified 04/30/25 16:59)
'throat swells up'
trimethoprim (From Bactrim) Allergy (Verified 04/30/25 16:59)
Unknown
Medications Reviewed: Yes
Current Antibiotics:
Vancomycin (dosing per pharmacy)
Cefepime 1 gm IV q.24 hours
Metronidazole 500 mg IV q.8 hours
Social History
Tobacco: Smoker
Alcohol: Occasional
Drug: Former User
Personal:
Living: With Family
Employment: Employed
Review of Systems
Vital Signs
Temp Pulse Resp BP Pulse Ox
100 F 97 33 83/48 98
05/01/25 11:28 05/01/25 11:25 05/01/25 11:25 05/01/25 11:25 05/01/25 11:25
Physical Exam
Physical Exam
Constitutional: Acutely Ill, Chronically Ill and Non-toxic
Head: Other (ET tube in place.)
Eyes: No Conjunctival Hemorrhage and Sclera Anicteric
Cardiovascular: Regular Rate and S1/S2; Negative S3/S4
Pulmonary: Coarse and Other (ET tube to vent.)
Gastrointestinal: Soft, Non Tender, Non Distended and Normal Bowel Sounds
Genito-Urinary: Cheng and Clear Urine; Negative Hematuria
Extremities: Edema, Erythema and Other (Bilateral lower extremities with evidence of hyperkeratosis secondary to longstanding venous insufficiency.)
Skin: Warm and Dry
Wound: Other (Right second toe with dark mottling and wounds.)
Neurological: Other (Responsive to voice and touch.)
Psychological: Calm
Lab / Diagnostic Study Results
05/01/25 03:48
Abs Immat Gran (auto) 2.4 10^3/uL (0-0.05) H 04/30/25 19:38
Absolute Neuts (auto) 16.2 10^3/uL (1.4-6.5) H 04/30/25 19:38
Absolute Lymphs (auto) 0.8 10^3/uL (1.2-3.4) L 04/30/25 19:38
Absolute Monos (auto) 1.4 10^3/uL (0.1-0.6) H 04/30/25 19:38
Absolute Basos (auto) 0.1 10^3/uL (0-0.2) 04/30/25 19:38
Immature Gran % 11.7 % (0-0.5) H 04/30/25 19:38
Neutrophils % 77.4 % (42.2-75.2) H 04/30/25 19:38
Lymphocytes % 3.9 % (20.5-51.1) L 04/30/25 19:38
Monocytes % 6.5 % (1.7-9.3) 04/30/25 19:38
Eosinophils % 0.0 % (0-6) 04/30/25 19:38
Basophils % 0.5 % (0-2) 04/30/25 19:38
PT 20.0 Sec (11.4-14.6) H 04/30/25 19:46
INR 1.65 04/30/25 19:46
Lactic Acid 1.4 mmol/L (0.7-2.0) 05/01/25 01:17
Ur Squamous Epith Cells None seen /LPF (Few) 05/01/25 01:32
Microbiology Results
Micro:
04/30/25 19:46 Blood Culture - Preliminary
Blood/Venous Positive culture in progress
Gram Stain - Preliminary
04/30/25 19:46 Blood Culture - Preliminary
Blood/Venous Staph aureus MRSA
Gram Stain - Preliminary
05/01/25 01:17 Blood Parasites Smear - Preliminary
Blood/Venous
05/01/25 01:32 Urine Culture - Pending
Urine
04/30/25 23:02 Influenza Types A & B (GIORGIO) - Final
Nasal Swab Negative for Influenza A & B, NAAT
Negative results must be combined with clinical observations
and patient history.
Nucleic Acid Amplification test (NAAT)performed on the
[employer] platform.
Imaging:
05/01/2025 CXR (portable): bilateral interstitial and airspace disease noted which may reflect pulmonary edema or pneumonia. Small bilateral pleural effusions noted. Please see full dictation for additional detail.
05/01/2025 Abdominal x-ray. Enteric tube noted in stomach.
05/01/2025 Renal ultrasound: unremarkable renal ultrasound without hydronephrosis, contour deforming solid renal mass or echogenic shadowing foci to suggest renal calculi. Bilateral pleural effusions noted.
05/01/2025 Duplex ultrasound lower extremity: no evidence of DVT in the bilateral lower extremities
04/30/2025 X-ray right foot: soft tissue injury versus ulceration involving the second digit with soft tissue swelling. The cortex of the distal phalanx is indistinct and the possibility of osteomyelitis cannot be excluded. There is soft tissue
swelling of the first digit. No radiographic evidence to suggest osteomyelitis. Please see full dictation for additional detail.
Assessment / Plan
MRSA bacteremia
Hypoxemic respiratory failure
Leukocytosis
SINDY; now on CRRT
Substance abuse (UDS with fentanyl, amphetamine, methamphetamine, benzodiazepine)
Right second toe infection; suspected osteomyelitis
Hx CVA (thalamic bleed) with right hemiplegia
Chronic back pain
Recommendations:
Patient currently critically ill on 3 pressors.
Discontinue further cefepime/metronidazole.
Begin meropenem 500 mg q.24 hours
Continue vancomycin. Follow Vanco levels closely.
Serial blood cultures to assess ongoing bacteremia (ordered)
Check echocardiogram to assess valves (ordered)
Follow white count and temperature curve.
Local care to the right second toe. Await Podiatry evaluation. Given findings on plain film, suspect osteomyelitis
Continue with supportive measures. Overall outlook extremely guarded.
Patient critically ill, on 3 pressors, in intensive care unit on CRRT.
Care Review
Plan reviewed with: Physician (Critical Care)
--- NOTE | 2025-05-01 11:52 | PN.IRAD.UPD ---
Update Note - IRAD
- -
Carlos A LARKIN [facility]
[2025-05-01] MEDS: PITRESSIN 100 IV ×3 (11:56→23:25)
[2025-05-01] MEDS: VANCOCIN 540 MG IV (12:23)
[2025-05-01] MEDS: FLAGYL 500 MG 100 IV (12:24)
[2025-05-01] MEDS: STERILE WATER FOR INJECTION 10 ML IV ×2 (12:24→15:29)
[2025-05-01] MEDS: MAXIPIME 1000 MG IV (12:24)
[2025-05-01 12:44] LABS: ALT (SGPT) 17 U/L (0-50); AST (SGOT) 38 U/L (17-59); Albumin 2.8 g/dl (3.5-5.0); Alkaline Phosphatase 71 U/L (38-126); Blood Urea Nitrogen 66 mg/dl (9-20); Calcium 7.0 mg/dl (8.4-10.2); Carbon Dioxide 18 mmol/L (22-30); Chloride 106 mmol/L (98-107); Estimated Creatinine Clearance 20 ml/min; Glucose 132 mg/dl (70-99); Magnesium 2.0 mg/dl (1.6-2.3); Potassium 4.4 mmol/L (3.5-5.1); Sodium 139 mmol/L (135-145); Total Protein 6.0 g/dl (6.3-8.2); eGFR 9.64
[2025-05-01 12:49] LABS: APTT 197.0 Sec (23.4-35.0)
[2025-05-01] MEDS: SUBLIMAZE 50 MCG IV ×3 (12:52→15:28)
--- NOTE | 2025-05-01 13:20 | PTCARENOTE ---
Addendum entered by Carlos A Raymond RN 05/01/25 13:34:
Pt. remains hypotensive, Trout Farmer notified --> orders for Epi.
Original Note:
Artline in place correlating well with NIBP.
Vasopressin added.
Norepi switched to x2 concentration.
CVVHD initiated.
--- NOTE | 2025-05-01 13:26 | W.PN.ANS.LIN ---
Anesthesia IV & A-Line Note
- IV/Arterial Line
Left Wrist Arrow 20 (12/03)
Allens test completed pre-procedure: Yes
A-Line Comments: Sterile technique as per standard protocol, Uneventful procedure, Seldinger technique used, Ultrasound guided insertion, Biopatch applied
A-line Insertion Start Time: 13:22
A-line Insertion Stop Time: 13:26
[2025-05-01] MEDS: LEVOPHED 258 MG IV ×4 (13:46→21:20)
[2025-05-01] MEDS: RFP-401 HD Soln (K+ 4 mEq/L) 5000 ML CRRT-IRR (14:07)
--- NOTE | 2025-05-01 14:14 | PTCARENOTE ---
Addendum entered by Carlos A Raymond RN 05/01/25 15:40:
Norepi -> 60mcg
Vaso -> 0.04
epi -> 20mcg
AT II -> 30 Ng
Remains hypotensive, CVVHD remains off, Daughter in route to hospital. Oxyacetylene Torch Operator aware.
Addendum entered by Carlos A Raymond RN 05/01/25 15:00:
Nephrology updated that CVVHD is rinsed back due to hypotension issues.
Started on Angiotensin II, 20 epi, 40 Norepi, Vasopressin.
Family confirming decision to be made, awaiting confirmation.
Addendum entered by Carlos A Raymond RN 05/01/25 14:35:
Epi gtt now at 20mcg
Norepi gtt at 40mcg.
Clinical pharmacy aware. Order parameters changed.
Addendum entered by Carlos A Raymond RN 05/01/25 14:30:
Discussed with. Oxyacetylene Torch Operator, clinical pharmacy.
Increase EPI dose to max of 20mcg.
CRRT to remain off until BP temporizes and pt. can tolerate.
Original Note:
Pt. BP not tolerating CRRT.
Oxyacetylene Torch Operator bedside blood rinsed back.
Awaiting family decision.
--- NOTE | 2025-05-01 14:15 | W.PN.UPDATE ---
Addendum entered and electronically signed by Mariana Callahan, 05/01/25 17:15:
Fiance Rosario and children are all at bedside as well now
I discussed the patient's overall condition and prognosis, they underwent and mentioned that patient has been suffering for the past few years and his QoL has been very poor
Rosario is not sure where patient will live post discharge if he survives
They are in agreement that no CPR should be given in this situation and should he deteriorate, they agree to make him comfortable.
They are still deciding on if withdrawal makes sense as well
Will FU on their decision
DNR status changed in record.
Addendum entered and electronically signed by Mariana Callahan, 05/01/25 16:55:
Family at bedside including Jackie and Any
Still no decision on code status, they are discussing amongst themselves
Original Note:
Update Note
Progress Note Update
Update:
Patient is now progressed to max doses of Levophed, vasopressin, epinephrine with addition of fourth pressor if not improving. He is currently on levo at 30, vasopressin 0.04, epinephrine at 10.
CRRT running but will need to pause due to profound hypotension.
Spoke to daughter Any who notes that she is technically the patient's stepdaughter. He has 4 biological children but the oldest is Ye who is 18 who she feels is not old enough or mature enough to make decisions on the patient's behalf. She
has adopted his children formally. He is currently unmarried, his current partner Saritha is his fianc�e who is also in rehab. They were never . His previous named Simona he has not spoken to in over 20 years. They are formally
. Any states that Jackie is his mother and that they generally makes decisions together. There is no formal POA paperwork or living well.
I was able to give Any an update on the patient's clinical deterioration. He remains full code, we discussed his CODE STATUS. It would likely be futile that the addition of CPR would benefit patient in this circumstance. She will think about
this and let us know about decision making. I have implored her to come into visit [facility] if she wishes to see him. She has made a request to bring his children in which is reasonable to accommodate for the older children.
Updated staff. Awaiting decision making from family.
[2025-05-01] MEDS: ADRENALIN 258 MG IV (14:44)
[2025-05-01] MEDS: [UNRECOGNIZED DRUG - OTHER] 251 MG IV (14:51)
[2025-05-01 15:06] LABS: Lyme Antibody Screen, EIA Negative (Negative)
--- NOTE | 2025-05-01 15:14 | W.CON.NEPH ---
Consultation
-
Date/Time Consultation Requested: April 30, 2025 at 11 PM
Date/Time Consultation Performed: May 01, 2025 at 9 AM
Requesting Provider: Dr. Coronado
Performing Provider: Dr. Beavers
Reason for Consultation: Acute kidney injury
Medical History
-
Chief Complaint: Acute kidney injury
History of Present Illness:
50-year-old male with previous history of opiate use disorder, left thalamic intracranial hemorrhage, presenting to ER with complaints of chest pain, shortness of breath and right toe pain. He has since been intubated in the ICU for respiratory
distress. UDS is positive for fentanyl, amphetamines, benzodiazepines. Chest x-ray demonstrating mild left lower lobe pneumonia.
Renal consultation was requested for acute kidney injury. He is on multiple pressors.
Unable to obtain review of systems as patient is intubated.
Discussed with the critical care team.
Past Medical History
As above
Past Surgical History: Other (Bursitis surgery, Ventricular shunt)
Social History
lives with his at his mom's home. His children are under custody of his elder daughter
Tobacco: Non-Smoker
Alcohol: None
Drug: Narcotics and Other (Fentanyl, amphetamines)
Personal:
Living: With Family
Family History
Family History: Not Pertinent
Allergies / Home Medications
Allergy/AdvReac Type Severity Reaction Status Date / Time
clindamycin Allergy Unknown Verified 04/30/25 16:59
Corticosteroids Allergy Unknown Verified 04/30/25 16:59
(Glucocorticoids)
diphenhydramine HCl (From Allergy Unknown Verified 04/30/25 16:59
Benadryl)
hydrocodone bitartrate (From Allergy vomiting Verified 04/30/25 22:45
Vicodin)
hydroxyzine (Hydroxyzine) Allergy Unknown Verified 04/30/25 16:59
Iodinated Contrast Media Allergy Vomiting Verified 04/30/25 22:45
peach Allergy Tongue Verified 04/30/25 16:59
Swelling
Penicillins Allergy Shortness Verified 04/30/25 16:59
of Breath;
tolerated
cefepime
sulfamethoxazole (From Allergy Unknown Verified 04/30/25 16:59
Bactrim)
tramadol Allergy 'throat Verified 04/30/25 16:59
swells up'
trimethoprim (From Bactrim) Allergy Unknown Verified 04/30/25 16:59
�Medication �Instructions �Recorded �Confirmed �Type
acetaminophen 500 mg tablet 1,000 mg (2 x 500 mg) PO Q8 PRN 03/06/25 04/30/25 Rx
(Tylenol Extra Strength) mild pain #0 tabs
carvedilol 25 mg tablet 25 mg PO BID Blood pressure #0 tabs 03/06/25 04/30/25 Rx
losartan 50 mg tablet 100 mg (2 x 50 mg) PO DAILY Blood 03/06/25 04/30/25 Rx
pressure #0 tabs
pantoprazole 40 mg tablet,delayed 40 mg PO DAILY Gastrointestinal 03/06/25 04/30/25 Rx
release (Protonix) issue #30 tabs
spironolactone 50 mg tablet 50 mg PO DAILY Blood pressure #0 03/06/25 04/30/25 Rx
tabs
clonidine HCl 0.1 mg tablet 0.1 mg PO DAILY Blood pressure 04/30/25 04/30/25 History
Review of Systems
-
Unable to obtain full review of systems at this time due to: Patient Intubation
Physical Exam
Vital Signs
Vital Signs
Temp Pulse Resp BP Pulse Ox
100 F 92 30 104/55 100
05/01/25 11:28 05/01/25 13:45 05/01/25 13:45 05/01/25 13:15 05/01/25 15:11
Lab Results
WBC 12.8 10^3/uL (4.8-10.8) H 05/01/25 03:48
RBC 4.20 10^6/uL (4.70-6.10) L 05/01/25 03:48
Hgb 11.6 g/dL (13.0-18.0) L 05/01/25 03:48
Hct 33.7 % (39.0-52.0) L 05/01/25 03:48
Plt Count 359 10^3/uL (130-400) 05/01/25 03:48
Sodium 139 mmol/L (135-145) 05/01/25 12:18
Potassium 4.4 mmol/L (3.5-5.1) 05/01/25 12:18
Chloride 106 mmol/L (98-107) 05/01/25 12:18
Carbon Dioxide 18 mmol/L (22-30) L 05/01/25 12:18
BUN 66 mg/dl (9-20) H 05/01/25 12:18
Creatinine 6.6 mg/dL (0.7-1.3) H* 05/01/25 12:18
eGFR 9.64 05/01/25 12:18
Glucose 132 mg/dl (70-99) H 05/01/25 12:18
Calcium 7.0 mg/dl (8.4-10.2) L 05/01/25 12:18
Phosphorus 5.0 mg/dl (2.5-4.5) H 05/01/25 12:18
Hlo-K-Drovsluppye Pept 582 pg/ml 05/01/25 03:48
Albumin 2.8 g/dl (3.5-5.0) L 05/01/25 12:18
Physical Exam
General no acute distress
HEENT no cephalic atraumatic ET tube
lungs coarse breath sounds
heart regular S1-S2 positive
abdomen soft nontender positive bowel sounds
extremities +3 edema
Neurologically intubated
Data Reviewed
-
Radiology: Image Personally Visualized and interpreted
Assessment/Plan
-
IMP:
Acute kidney injury
Septic shock
Cellulitis left lower extremity
Opiate abuse with withdrawal
Microscopic hematuria, Albuminuria noted in the urine
History of CVA-left thalamus measuring at least 2.5 cm bleed 01/07/24. ventricular shunt
Leukocytosis- elevated since 2008 labs
Chronic back pain
Morbid obesity with a BMI of 39
History of nephrolithiasis
Possible sleep apnea-needs outpatient study asleep
ADHD
Hepatic steatosis per prior imaging
Active smoker
Plan:
Acute kidney injury secondary to septic shock
Pressor support
Acute dialysis in the form of CRRT initiated
Prognosis guarded
Discussed with critical care team

33 minutes critical care time
--- NOTE | 2025-05-01 15:20 | W.PN.UPDATE ---
Addendum entered and electronically signed by Melodie Hoskins MD 05/01/25 15:24:
Patient listed as allergic to corticosteroids. Check random cortisol level
Original Note:
Update Note
Progress Note Update
On 3 pressors and Angiotensin 2 .
Will add stress dose steroids
[2025-05-01] MEDS: MERREM 500 MG IV (15:29)
[2025-05-01 15:43] LABS: Glucose - Point of Care 120 mg/dl (70-99)
--- NOTE | 2025-05-01 15:59 | PTCARENOTE ---
Unleavened Dough Mixer bedside --> due to persistent hypotension and escalating Vasopressor requirements will hold off on CRRT and reevaluate in AM.
--- NOTE | 2025-05-01 17:13 | CM ---
Addendum entered by Jami Velasco 05/01/25 17:47:
Patient family provided contact information to nursing and plan is for family to make decisions together and daughter to be contact printer dry film. nursing aware.
Addendum entered by Jami Velasco 05/01/25 17:18:
CM called to patient mother and left VM. Patient daughter states that they are in the room.
Original Note:
Patient seen at bedside intubated at this time. Per chart review patient is in a SNF and patient mother was contacted this am. Patient previously noted to be living with his Saritha and 5 kids in a 1 story home with 3 steps to enter and
bed and bathroom on first. Patient previously used the [facility] in [place] and he used the [facility] per records. CM will call patient to determine if any other family is able to be contacted for planning at this time.
Plan; watch for medical treatment plan; TBD
[2025-05-01 17:24] LABS: Cortisol, Random > 123.0 ug/dl
[2025-05-01 18:08] LABS: APTT 110.9 Sec (23.4-35.0)
[2025-05-01] MEDS: DESENEX/MITRAZOL/ZEASORB 1 APPLIC TOPICAL (19:17)
--- NOTE | 2025-05-01 20:00 | PTCARENOTE ---
Received patient intubated, sedated, and restrained. PERRLA 2 mm, sluggish. Patient opens eyes to voice and follows commands, weak left hand grasp and absent right hand grasp. B/l wrist restraints intact. NS 70s, maintaining MAP>65. Titrating
giapreza, epinephrine, norepinephrine, and vasopressin per order. Heparin gtt at 2100 units, Precedex at 1.4 mcg/kg/hr. Right IJ trialysis patent, WNL. PIVs patent, WNL. Left radial arterial line zeroed, flushed, and leveled. Febrile to 101.1,
tylenol given via left nare DHT at 84 cm. Weak pedal pulses b/l, +2 LLE edema, +3 RLE edema. Wound care done, no vashe available in the hospital so cleansed with normal saline. Aquaphor ointment, adaptic, alginate, ABD pads applied on b/l legs.
Secured with kerlix and CHAUNCEY bandage on top. Right toe cleansed with saline and dry gauze applied. 8.0 ETT, 25 at the lip, moved to the center. Vent settings AC 16/500/60%/5. Lung sounds diminished throughout with crackles in the bases. Abdomen soft,
round, obese, hypoactive bowel sounds. Cheng in place draining tea colored urine. Mouth care done, repositioned. Hourly rounding and patient safety checks ongoing.
[2025-05-01] MEDS: TYLENOL ORAL SOLUTION 650 MG TUBE (20:29)
[2025-05-01 21:01] LABS: Blood Urea Nitrogen 66 mg/dl (9-20); Calcium 6.5 mg/dl (8.4-10.2); Carbon Dioxide 15 mmol/L (22-30); Chloride 110 mmol/L (98-107); Estimated Creatinine Clearance 24 ml/min; Glucose 139 mg/dl (70-99); Magnesium 2.0 mg/dl (1.6-2.3); Potassium 4.2 mmol/L (3.5-5.1); Sodium 141 mmol/L (135-145); eGFR 12.27
[2025-05-01] MEDS: VANCOCIN 530 MG IV (21:46)
[2025-05-01] MEDS: NOVOLOG FLEXPEN-LOW RESISTANCE SC (23:21)
[2025-05-01 23:31] LABS: Glucose - Point of Care 131 mg/dl (70-99)
--- NOTE | 2025-05-01 23:50 | PTCARENOTE ---
Mouth care done, haney care done, repositioned. Giapreza off since 2129, epinephrine titrated down to 2 mcg/min, norepinephrine at 16 mcg/min. Calcium repleted, vancomycin given. Suctioned for thick yellow secretions, fentanyl bolus given per order.
Hourly rounding and patient safety checks ongoing.
[2025-05-02] MEDS: SUBLIMAZE 50 MCG IV ×4 (00:01→11:27)
[2025-05-02] MEDS: PRECEDEX 100 IV ×12 (00:20→21:50)
[2025-05-02] MEDS: SUBLIMAZE 100 IV ×3 (00:47→18:02)
--- NOTE | 2025-05-02 01:03 | PTCARENOTE ---
Patient consistently desaturating and fighting the ventilator, maxed on percedex gtt. Fentanyl bolus given, continued distress post bolus, RASS +2. Epinephrine gtt off. Started on fentanyl gtt per order. Patient appears more comfortable, oxygen
saturation improved to 95%. Hourly rounding and patient safety checks ongoing.
[2025-05-02 03:01] LABS: B.E. -5.7 mmol/L; HCO3 18.2 mmol/L (21-28); O2 Saturation % 98.6 % (94-98); PCO2 30 mmHg (35-48); PO2 85 mmHg (83-108)
[2025-05-02] MEDS: TYLENOL ORAL SOLUTION 650 MG TUBE ×2 (03:19→09:12)
[2025-05-02 03:26] LABS: Hematocrit 31.0 % (39.0-52.0); Hemoglobin 10.9 g/dL (13.0-18.0); Mean Corp Hgb Conc. 35.2 g/dL (33.0-37.0); Mean Corpuscular Volume 78.7 fL (80.0-94.0); Platelet Count 394 10^3/uL (130-400); Red Cell Dist. Width 16.4 % (11.5-14.5)
[2025-05-02 03:31] LABS: APTT 73.5 Sec (23.4-35.0)
[2025-05-02] MEDS: STERILE WATER FOR INJECTION 10 ML IV ×3 (04:24→19:33)
[2025-05-02] MEDS: MERREM 500 MG IV ×3 (04:25→19:33)
[2025-05-02 04:38] VITALS: BMI 36.9
[2025-05-02 04:57] LABS: Absolute Neutrophils -Man Diff 14.8 10^3/uL (1.4-6.5)
[2025-05-02 04:58] LABS: Anisocytosis 2+; Microcytosis 2+; Normal RBC Morphology No; Platelets Checked Yes; Total Cells Counted 100
[2025-05-02 05:00] LABS: Blood Urea Nitrogen 68 mg/dl (9-20); Calcium 7.4 mg/dl (8.4-10.2); Carbon Dioxide 17 mmol/L (22-30); Chloride 112 mmol/L (98-107); Estimated Creatinine Clearance 34 ml/min; Glucose 127 mg/dl (70-99); Potassium 4.2 mmol/L (3.5-5.1); Sodium 142 mmol/L (135-145); eGFR 18.13
--- NOTE | 2025-05-02 05:03 | PTCARENOTE ---
CHG bath done, repositioned, sheets changed. Mouth care done, ETT jansen changed. Labs sent. Norepi off, Vaso gtt changed to 0.03 per provider order. Blood cultures sent. Fentanyl, heparin, and precedex gtt ongoing.
[2025-05-02] MEDS: NOVOLOG FLEXPEN-LOW RESISTANCE SC ×4 (05:11→23:02)
[2025-05-02 05:20] LABS: Glucose - Point of Care 139 mg/dl (70-99)
[2025-05-02] MEDS: PITRESSIN 100 IV (06:10)
--- NOTE | 2025-05-02 07:03 | W.PN.INTV ---
Today's Communication / Plan
Recommendations
CT RLE w/ IV contrast, continue IV abx
HD on hold for now, renal following
Weaning off pressors as able
No plans for SBT yet
Heparin gtt noted, not likely PE, would stop
He is DNR, clinical status still tenuous
Assessment
-
Patient is a 50-year-old male with previous history of opiate use disorder, left thalamic intracranial hemorrhage, presenting to ER with complaints of chest pain, shortness of breath and right toe pain. He arrived in the ER in apparent
respiratory distress with increased work of breathing. He was tried on BiPAP but could not tolerate it. He was admitted here recently in January for opiate use disorder and withdrawal symptoms. UDS is positive for fentanyl, amphetamines,
benzodiazepines. Chest x-ray demonstrating mild left lower lobe pneumonia, he is on HFNC (PAO2 on ABG 73). Admitted to ICU for hypoxemia.
Profound septic shock on 4 pressors: levo, vaso, epi, giapreza--improving
Suspect acute opiate w/d
UDS +Fent
LLL PNA
Acute hypoxic respiratory failure on high flow nasal cannula-->intubation 05/01
Metabolic acidosis
Acute kidney injury, creatinine 6.9
Leukocytosis
GP bacteremia
Possible UTI
Tick bite
Possible skin infection/cellulitis
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
Cellulitis left lower extremity
Hypertensive urgency
Opiate abuse with withdrawal
Microscopic hematuria, Albuminuria noted in the urine
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
Leukocytosis- elevated since 2008 labs
Chronic back pain
Morbid obesity with a BMI of 39
History of nephrolithiasis
Possible sleep apnea-needs outpatient study asleep
ADHD
Hepatic steatosis per prior imaging
Active smoker
Plan
Had been awake/alert, MS declining--intubated on sedation
Psychiatric history noted above including IVDU, ADHD history
UDS + multidrug use, CVA history
Denies pain at this time.
Pain/sedation: Fent, procedex
RASS goals: -2
Hemodynamically unstable, requiring pressors: levo, vaso, epi, giap--weaned down to levo and vaso
Cardiac history reviewed--HTN, CVA
No prior ECHO for review, ECHO obtained/stable function
Monitor on telemetry
Placed on heparin gtt for suspected PE by primary service, unlikely--would stop
Oxygen needs: on HFNC --> BIPAP, not improving --> intubated 05/01
Vent setting reviewed: AC 500/18/02+
Repeat ABG adequate
Prior history of lung disease: likely has FRANKO not diagnosed
Supplemental O2 as indicated to maintain sats > 89%
CXR/CT reviewed, stable lines, possible LLL PNA atelectasis
ProBNP 500
NPO, resume diet when able
Consultant Internship recommendations
Aspiration precautions, HOB > 30 degrees
Speech therapy eval can be considered if at elevated risk
GI prophylaxis if indicated for mechanical ventilation >48 hours, prior history of GERD, stress ulcer formation in the critically ill
SINDY present
Renal consult, planning for HD, could not tolerate CRRT
HD on hold, UO and creat improving today
Void trials
Follow urine output, critical I/Os
Fever and increased WBC on presentation, suspect underlying sepsis
Started on empiric antibiotics--MRP IV
Cultures sent/pending
Blood-- GPC + await further final results
Urine pending
Tick noted, serology sent
Follow fever trend, WBC count
ID Following
CT Thigh w/ IV contrast
CBC stable, no signs of bleeding or coagulopathy.
DVT prophylaxis as assessed based on risk, including mechanical SCDs
Can transfuse if indicated for Hb <7, plt < 10
INR WNL
No prior h/o diabetes or thyroid disease
Monitor accuchecks PRN/SS coverage if needed
HbA1c 5.7
Diagnostic Data
Chest X-Ray: 04/30/25- Mild left lower lobe pneumonia. Trace bilateral pleural effusions.
CT Scan: CT head 01/2025: There is a ventricular shunt present which enters from the right superior frontal region, with tip of the shunt to the junction of the inferior frontal horn of the right lateral ventricle and the third ventricle. There is
decreased size of the right lateral ventricle when compared to the left, and slight shift of the septum pellucidum toward the left, and findings suggest peripheral arterial shunting of the right lateral ventricle when compared to the left. There is
no evidence of acute intracranial hemorrhage. In the inferior aspect of the left thalamus, there is a small focal area of decreased density measuring 1.5 cm transverse by 0.8 cm AP, compatible with encephalomalacia from previous region of
intracranial hemorrhage. No abnormal extra-axial collection is identified. There is 80% opacification of the sphenoid sinus, slightly improved from previous examination. The rest of the paranasal sinuses appear clear. The mastoid air cells appear
clear.
AP 02/23/25- 2 small nephroliths within the posterior upper pole the right kidney. As described, evidence for blood products/hematoma within the calyces of the upper pole of the right kidney. Wall of the urinary bladder appears mildly diffusely
thickened, which may be on the basis of incomplete distention, but correlate clinically to exclude cystitis. Mild hepatomegaly with no focal hepatic lesion. Thickening of the wall the duodenum extending from the duodenal bulb contiguously through
the distal third portion, with stranding of the adjacent fat. Main differential considerations of primary duodenitis, versus reactive duodenitis from pancreatitis. There is mild stranding of the fat adjacent to the pancreatic head with no focal
collection. Mild to moderate subcutaneous edema greatest in the lateral flanks.
Echo: 05/01/25- Normal biventricular size and systolic function without regional wall motion abnormality. LV ejection fraction is 55-60% by visual assessment. Normal diastolic function. No significant valvular disease. No obvious vegetation. No
prior study available for comparison.
PFT's:
Reports and relevant images were personally reviewed.
Critical Care time 41 mins -- The patient is admitted for acute critical illness for the treatment of vital organ failure and/or prevention of further life-threatening conditions. Total care includes time spent in review of history, physical exam,
medications, hemodynamic/ventilator parameters, laboratory data, imaging and discussion with house staff, pharmacy, respiratory therapy, computer technology trainer, and nursing.
Subjective Dataa
Subjective Data
Date of Service:
Date of Service: May 02, 2025
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
Subjective:
Remains intubated and on pressors
CRRT on hold due to hypotension, but UO has improved
Patient intermittently responsive
DNR status
Objective Data
Data Reviewed
Vital Signs / I&O / Oxygen:
Vital Signs
Temp Pulse Resp BP Pulse Ox
101.6 F H 83 28 140/79 96
05/02/25 03:28 05/02/25 06:15 05/02/25 06:15 05/01/25 23:45 05/02/25 06:15
Intake and Output
05/01/25 05/02/25 05/03/25
06:59 06:59 06:59
Intake Total 980 / 1150 4675.1 / 4675.1
Output Total 32 / 32 1565 / 1565
Balance 948 / 1118 3110.1 / 3110.1
SaO2 [A/C] 95
SaO2 96
Nasal Cannula flow liters per 60
minute
Physical Exam
General: Other (chronically ill appearing, obese)
HEENT: Normocephalic and Anicteric
Cardiovascular: S1-S2, Regular Rhythm and Peripheral Edema (chronic venous stasis changes)
Respiratory: Clear, Non-Labored Respirations and ET Tube
GI: Soft, Non Distended and Non Tender
Neurology: Awake (with verbal/tactile stim) and Lethargic (sedated/intubated)
Skin: Warm, Dry and Rash (throughout LEs, fluctuance on R inner thigh)
Labs/Micro/Reports
Lab Data
05/02/25 02:48
05/02/25 02:48
Laboratory Results
05/01/25 05/01/25 05/01/25
07:50 10:31 12:18
APTT 61.3 H 197.0 H*
pH 7.31 L
pCO2 41
pO2 200 H
HCO3 20.6 L
O2 Delivery Level
05/01/25 05/02/25 05/02/25
17:45 02:48 02:52
APTT 110.9 H 73.5 H
pH 7.39
pCO2 30 L
pO2 85
HCO3 18.2 L
O2 Delivery Level
Microbiology
05/01/25 01:17 Blood/Venous Blood Parasites Smear - Final
04/30/25 19:46 Blood/Venous Blood Culture - Preliminary
Positive culture in progress
04/30/25 19:46 Blood/Venous Gram Stain - Preliminary
04/30/25 19:46 Blood/Venous Blood Culture - Preliminary
Staph aureus MRSA
04/30/25 19:46 Blood/Venous Gram Stain - Preliminary
04/30/25 23:02 Nasal Swab Influenza Types A & B (GIORGIO) - Final
Negative for Influenza A & B, NAAT
Negative results must be combined with clinical observations
and patient history.
Nucleic Acid Amplification test (NAAT)performed on the
[employer] platform.
--- NOTE | 2025-05-02 07:45 | PTCARENOTE ---
Received pt in Contact precautions, intubated and sedated with bilateral soft wrist restraints intact. He easily opened his eyes to gentle verbal and tactile stimuli. Nodding his head to simple questions and using hand gestures to communicate. Right
IJ pigtail catheter with Vasopressin, Precedex & Fentanyl. Right AC w/Heparing. Right hand and left hand protective catheter both flushed and patent. Right IJ Trialysis catheter dressing CDI, ports capped. Doppler pedal pulses. Right L/E & U/E +2-3
edema. LLE with +1-+2 edema. Knee-hi Compression therapy maintained. #8 ETT secured 25cm centered. Tolerating AC 16/500/.40/+5. Breath sounds dim in the bases otherwise CTA. Round obese abdomen with hypoactive BSX4. Left nare DHT secured
approximately 84cm, capped. Placement verified w/air bolus. Temperature sensing Cheng catheter with yellow urine. Hourly UOP improved. Repositioned for comfort and assessment. Safe environment maintained.
--- NOTE | 2025-05-02 07:59 | PHA.VAN.FU ---
Addendum entered and electronically signed by Tonya Bardales, [facility] 05/02/25 19:26:
Level = 16; drawn ~6 hours after vanc 1250mg dose. Will provide additional vanc 1250mg x1.
Original Note:
Vancomycin Assessment / Plan
- Assessment
Renal Function: SCR Decreasing (attempted CRRT yesterday; stopped due to severe hypotension)
WBC's are: Trending Up
In the past 24 hrs, patient has been: Febrile (Tmax 101.6 overnight)
Concomitant Antimicrobials: meropenem
- Assessment - Therapeutic Drug Monitoring
Random Level: 17.4 - drawn ~5H after dose of 1500mg
Levels were drawn: Pre-steady state (pt has received 2 doses of vancomycin thus far)
- Dosing Plan
Dosing by Level: Re-dose today (give 1250mg x1 dose)
- Monitoring Plan
Random Level: getting level at 1800 tonight, 0600 tomorrow to assess for redosing
- Follow Up
Pharmacy will continue to follow.
Vancomycin Follow UP
- -
Patient Age: 50
Patient Sex: Male
Vancomycin Day #: 2
Indication: Bacteremia
Requesting Provider: Dr. Hoskins/Dr. Amador
Pertinent Antimicrobial Allergies:
clindamycin - reaction unknown
penicillins - shortness of breath; tolerated cefepime
trimethoprim/sulfamethoxazole - reaction unknown
Height / Weight:
Height 6 ft 3 in
Actual Weight 134 kg
Pertinent Past Medical History: IV NATI, BMI 36
- Vital Signs / Lab Results
Temp Pulse Resp BP Pulse Ox
101 F H 83 28 140/79 95
05/02/25 07:57 05/02/25 06:15 05/02/25 06:15 05/01/25 23:45 05/02/25 07:57
Lab Results - Hematology
04/30/25 05/01/25 05/01/25
19:38 01:17 03:48
WBC 20.9 H 15.4 H 12.8 H
Band Neutrophils
05/02/25
02:48
WBC 21.8 H
Band Neutrophils 11 H
Lab Results - Chemistry
04/30/25 04/30/25 05/01/25
19:38 20:17 01:15
BUN Cancelled 57 H 58 H
Creatinine Cancelled 6.9 H* 6.4 H*
Estimated Creat Clear Cancelled 19 20
Albumin Cancelled 3.3 L
05/01/25 05/01/25 05/01/25
03:48 12:18 20:10
BUN 63 H 66 H 66 H
Creatinine 6.4 H* 6.6 H* 5.4 H*
Estimated Creat Clear 20 20 24
Albumin 2.8 L 2.8 L
05/02/25
02:48
BUN 68 H
Creatinine 3.9 H
Estimated Creat Clear 34
Albumin
04/30/25 05/01/25 05/01/25
19:46 01:17 12:18
Lactic Acid 2.0 1.4 1.9
Microbiology Results
05/01/25 17:45 Blood Culture - Preliminary
Blood/Venous Positive culture in progress
Gram Stain - Preliminary
05/01/25 01:17 Blood Parasites Smear - Final
Blood/Venous
04/30/25 19:46 Blood Culture - Preliminary
Blood/Venous Positive culture in progress
Gram Stain - Preliminary
04/30/25 19:46 Blood Culture - Preliminary
Blood/Venous Staph aureus MRSA
Gram Stain - Preliminary
04/30/25 23:02 Influenza Types A & B (GIORGIO) - Final
Nasal Swab Negative for Influenza A & B, NAAT
Negative results must be combined with clinical observations
and patient history.
Nucleic Acid Amplification test (NAAT)performed on the
[employer] platform.
Therapeutic Drug Monitoring
Random Vancomycin 17.0 ug/ml 05/02/25 02:48
--- NOTE | 2025-05-02 08:27 | W.PN.ID1 ---
Date of Service
Date of Service: May 02, 2025
Today's Communication
Continue antibiotics. Consider CT of right leg.
Assessment / Plan
MRSA bacteremia
Hypoxemic respiratory failure
Leukocytosis
SINDY
- Some improvement in creatinine today.
Anemia
Substance abuse (UDS with fentanyl, amphetamine, methamphetamine, benzodiazepine)
Right second toe infection; suspected osteomyelitis
Hx CVA (thalamic bleed) with right hemiplegia
Chronic back pain
Recommendations:
Patient remains critically ill although pressors have been weaned.
Continue empiric meropenem 500 mg IV q.24 hours
Continue vancomycin. Follow Vanco levels closely.
Serial blood cultures to assess ongoing bacteremia (ordered through 05/05/25)
TTE without noted valvular disease.
Ongoing fevers noted.
Follow white count and temperature curve.
Local care to the right second toe. Await Podiatry evaluation. Given findings on plain film, suspect osteomyelitis.
Patient with ongoing pain in the medial right thigh area. New serpiginous rash is concerning for underlying process.
Would recommend CT of the leg to further evaluate.
Continue with supportive measures. Overall outlook extremely guarded.
Patient remains critically ill, with VDRF, in intensive care unit.
����������������������������������������������������������
Chief Complaint
-: Clinical Sepsis and Bacteremia
Subjective / Review of Systems
Patient seen and examined. Remains on vent at this time. Via movements and head shaking notes discomfort in right leg with palpation.
Review of Systems: Fever
Vital Signs / Physical Exam
Vital Signs
Vital Signs
Temp Pulse Resp BP Pulse Ox
101 F H 79 27 140/79 95
05/02/25 07:57 05/02/25 08:00 05/02/25 08:00 05/01/25 23:45 05/02/25 08:09
Physical Exam
Constitutional: Acutely Ill and Chronically Ill
Head: Other (ET tube in place.)
Eyes: No Conjunctival Hemorrhage and Sclera Anicteric
Cardiovascular: Regular Rate and S1/S2; Negative S3/S4 or Murmur
Pulmonary: Clear; Negative Wheezes or Rales
Gastrointestinal: Soft, Non Distended, Normal Bowel Sounds, No Rebound and No Guarding
Genito-Urinary: Cheng and Clear Urine; Negative Turbid Urine or Hematuria
Extremities: Edema and Other (Bilateral lower extremity hyperkeratosis 2* to venous stasis)
Skin: Rash (Serpiginous rash noted on medial right thigh and right knee)
Wound: Other (Right second toe mottled and dark. Positive wound)
Neurological: Other (Arousable. Responsive to voice and touch.)
Psychological: Calm
Objective Data
Lab Data
Lab Results
05/02/25 02:48
05/02/25 02:48
PT 20.0 Sec (11.4-14.6) H 04/30/25 19:46
INR 1.65 04/30/25 19:46
APTT 73.5 Sec (23.4-35.0) H 05/02/25 02:52
Estimated Creat Clear 34 ml/min 05/02/25 02:48
Lactic Acid 1.9 mmol/L (0.7-2.0) 05/01/25 12:18
Total Bilirubin 1.8 mg/dl (0.2-1.3) H 05/01/25 12:18
AST 38 U/L (17-59) 05/01/25 12:18
ALT 17 U/L (0-50) 05/01/25 12:18
Alkaline Phosphatase 71 U/L (38-126) 05/01/25 12:18
Most recent labs reviewed.
Micro Results:
05/01/25 17:45 Blood Culture - Preliminary
Blood/Venous Positive culture in progress
Gram Stain - Preliminary
05/02/25 03:16 Blood Culture - Pending
Blood/Venous
05/01/25 01:17 Blood Parasites Smear - Final
Blood/Venous
04/30/25 19:46 Blood Culture - Preliminary
Blood/Venous Positive culture in progress
Gram Stain - Preliminary
04/30/25 19:46 Blood Culture - Preliminary
Blood/Venous Staph aureus MRSA
Gram Stain - Preliminary
05/01/25 01:32 Urine Culture - Pending
Urine
04/30/25 23:02 Influenza Types A & B (GIORGIO) - Final
Nasal Swab Negative for Influenza A & B, NAAT
Negative results must be combined with clinical observations
and patient history.
Nucleic Acid Amplification test (NAAT)performed on the
[employer] platform.
Imaging:
05/01/2025 ECHO (TTE): EF 55%. Normal biventricular size and systolic function. No significant valvular disease. No obvious vegetations.
05/01/2025 CXR (portable): bilateral interstitial and airspace disease noted which may reflect pulmonary edema or pneumonia. Small bilateral pleural effusions noted. Please see full dictation for additional detail.
05/01/2025 Abdominal x-ray. Enteric tube noted in stomach.
05/01/2025 Renal ultrasound: unremarkable renal ultrasound without hydronephrosis, contour deforming solid renal mass or echogenic shadowing foci to suggest renal calculi. Bilateral pleural effusions noted.
05/01/2025 Duplex ultrasound lower extremity: no evidence of DVT in the bilateral lower extremities
04/30/2025 X-ray right foot: soft tissue injury versus ulceration involving the second digit with soft tissue swelling. The cortex of the distal phalanx is indistinct and the possibility of osteomyelitis cannot be excluded. There is soft tissue
swelling of the first digit. No radiographic evidence to suggest osteomyelitis. Please see full dictation for additional detail.
Care Review
Plan reviewed with: Physician (Critical Care)
[2025-05-02 09:01] VITALS: BP 88/51
[2025-05-02 09:05] VITALS: BP 88/51
[2025-05-02] MEDS: LEVOPHED 258 MG IV (09:05)
--- NOTE | 2025-05-02 09:15 | PTCARENOTE ---
Hypotension post repositioning and Fentanyl bolus. Norepinephrine started and titrated for MAP>65mmHg, Fentanyl drip decreased to 75mcg/hr for MAP 57. Tachypnea ensued, temperature rising. Tylenol administered via DHT then Zanaflex when symptoms of
restlessness & tachypnea in the 30's persisted.
[2025-05-02] MEDS: ZANAFLEX 2 MG TUBE (09:30)
[2025-05-02] MEDS: HEPARIN 25000 UNITS/250 ML IV ×2 (10:24→21:48)
[2025-05-02] MEDS: VANCOCIN 275 MG IV ×2 (10:33→19:35)
[2025-05-02] MEDS: NSS (PRESERVATIVE FREE) 10 ML IV (10:37)
[2025-05-02] MEDS: PROTONIX IV 40 MG IV (10:37)
--- NOTE | 2025-05-02 11:16 | W.PN.NEPH.PH ---
Today's Communication / Plan
-
Okay for CAT scan from renal perspective
Assessment/Plan
-
IMP:
Acute kidney injury
Septic shock
Cellulitis left lower extremity
Opiate abuse with withdrawal
Microscopic hematuria, Albuminuria noted in the urine
History of CVA-left thalamus measuring at least 2.5 cm bleed 01/07/24. ventricular shunt
Leukocytosis- elevated since 2008 labs
Chronic back pain
Morbid obesity with a BMI of 39
History of nephrolithiasis
Possible sleep apnea-needs outpatient study asleep
ADHD
Hepatic steatosis per prior imaging
Active smoker
Plan:
Acute kidney injury secondary to septic shock
Pressor support
BODY PIERCER discontinued yesterday for worsening blood pressure on 4 pressors. He is currently off dialysis and making urine nonoliguric.
CT scan per infectious disease with concern for osteo. Risk-benefit discussed we will proceed with CAT scan
Prognosis guarded
Discussed with critical care team

33 minutes critical care time
-
-
Date of Service: May 02, 2025
CC / HPI / ROS
-
Chief Complaint:
Septic shock
History of Present Illness:
Acute kidney injury septic shock drug abuse
Review of Systems:.
Intubated
Nonoliguric
Labs
-
Labs:
WBC 21.8 10^3/uL (4.8-10.8) H 05/02/25 02:48
RBC 3.94 10^6/uL (4.70-6.10) L 05/02/25 02:48
Hgb 10.9 g/dL (13.0-18.0) L 05/02/25 02:48
Hct 31.0 % (39.0-52.0) L 05/02/25 02:48
Plt Count 394 10^3/uL (130-400) 05/02/25 02:48
Sodium 142 mmol/L (135-145) 05/02/25 02:48
Potassium 4.2 mmol/L (3.5-5.1) 05/02/25 02:48
Chloride 112 mmol/L (98-107) H 05/02/25 02:48
Carbon Dioxide 17 mmol/L (22-30) L 05/02/25 02:48
BUN 68 mg/dl (9-20) H 05/02/25 02:48
Creatinine 3.9 mg/dL (0.7-1.3) H 05/02/25 02:48
eGFR 18.13 05/02/25 02:48
Glucose 127 mg/dl (70-99) H 05/02/25 02:48
Calcium 7.4 mg/dl (8.4-10.2) L 05/02/25 02:48
Phosphorus 5.0 mg/dl (2.5-4.5) H 05/01/25 12:18
Zmb-T-Odpooxruxst Pept 582 pg/ml 05/01/25 03:48
Albumin 2.8 g/dl (3.5-5.0) L 05/01/25 12:18
Physical Exam
-
Vital Signs:
Vital Signs
Temp Pulse Resp BP Pulse Ox
100.8 F H 76 27 88/51 96
05/02/25 10:44 05/02/25 11:00 05/02/25 11:00 05/02/25 09:01 05/02/25 11:00
--- NOTE | 2025-05-02 11:31 | PTCARENOTE ---
To CT scan with RN, PCT & REGIONAL MEDICAL DIRECTOR on ventilator.
[2025-05-02 11:35] LABS: Glucose - Point of Care 133 mg/dl (70-99)
[2025-05-02] MEDS: DESENEX/MITRAZOL/ZEASORB 1 APPLIC TOPICAL ×2 (11:45→19:33)
--- NOTE | 2025-05-02 11:52 | W.PN.HOSP.TC ---
Today's Communication/Plan
-
Continue antibiotics
Wean pressors as tolerated
CT of leg
Assessment / Plan
Assessment / Plan
50-year-old man presented to the hospital with right lower extremity after he injured his toes a few days ago. He has also been feeling short of breath and a pressure in his chest. He has lost a friend recently to drugs. This is per ER records.
I spoke to patient's mom as I was not able to reach his or daughter listed as contacts. Per mom after his discharge from here in March he went to the rehab and signed himself out after 2 days. He went to mom's place and lives with her.
Patient's spouse was admitted to the rehab around the same time he was and she still remains in the rehab. Mom states that he goes to [place] and does not listen to her. He yells at her often. She requests some kind of help to control him.
Requested a psychiatry evaluation to see if he is able to make his decisions or if he needs a guardian from the [facility]. She feels helpless about his situation.
When I walked into the patient's room he was on a BiPAP mask and completely unresponsive.(Reportedly per chart patient refused intubation when he came in. He remains a full code as per the chart.) I was unable to reach patient's spouse or
daughter. I was likely able to reach patient's mother who stated that he is not always in the sound mind to make decisions which I agree in the setting of sepsis and tachypnea as well as as urine drug screen showing positive screening for fentanyl,
amphetamines. Mom wants to proceed with intubation and asked to do what ever it takes to 'save him'.
On examination
Patient on the ventilator awake and alert able to follow directions
Pupils were equal and reactive
Cardiovascular system S1-S2 tachycardic
Chest decreased breath sounds at bases
Abdomen soft and nontender
Bilateral lower extremity edema with skin thickening, dry skin, multiple small areas of skin breaks noted. Right second toe with ulceration, edema and oozing. Decreased pulses felt bilateral dorsalis pedis. Feet are warm to touch.
Facial droop-chronic
Able to squeeze with his hands and follow directions
Rash on inner thigh and also an area of induration in the inner thigh on the right side
Venous Dopplers lower extremity-no DVT noted
Echo 05/01/2025-normal biventricular size and systolic function. EF 55 to 60% no vegetation
# Acute respiratory failure
VDRF
Multifactorial reasons
Possible pneumonia, sepsis, metabolic acidosis. Cannot rule out PE.
Continue heparin drip until PE ruled out
On Precedex, fentanyl
Antibiotics meropenem and vancomycin
Ventilator support
Check ECHO
# MRSA sepsis present on admission
Septic shock-was on 3 pressors and angiotensin II
Currently off of angiotensin II and on vasopressin and Levophed
Wean pressors as tolerated
Normal lactic acid level
Repeat blood cultures ordered for today
Continue vancomycin
ID evaluation
Source is likely foot
Patient is for CT of the leg today to evaluate for an abscess
# Right second toe infection
Podiatry to evaluate
LENNY order placed with decreased pulses
Antibiotics as above
# Acute kidney injury
IV fluids
Patient could not tolerate CRRT
He is making urine now
Ultrasound of the kidneys with no obstruction
Urinary diversion with Cheng catheter
Nephrology following
# Drug abuse urine drug screen positive for fentanyl, , benzos,amphetamines and methamphetamines
Patient was discharged to a rehab last admission however he stayed there only for 2 days and signed himself out
# Metabolic acidosis-likely secondary to renal failure
# Multidrug resistant hypertension-currently blood pressure stable without medicines. Watch off of medicines.
Patient was on Coreg, losartan, clonidine, Aldactone as outpatient.
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 Transferred to [facility] . Pt says he was there for 3 months and has weakness of right side and facial droop, check head CT
#Chronic back pain
#Morbid obesity with a BMI of 35- Weight loss recommended
#History of nephrolithiasis
#Possible sleep apnea-needs outpatient study as OP.
#ADHD
#Hepatic steatosis per prior imaging-outpatient follow-up
#Active smoker-cessation counseling when able
# Hypoalbuminemia
#DVT prophylaxis-heparin drip
#Full code
Discussed with critical care nursing, pavilion cutter, infectious disease medical oncologist, respiratory at bedside
Called and daughter- Not able to reach
Called mother and updated. She stated that he can get very agitated and upset and start pulling on things
Total Critical Care Time 40 minutes. I was immediately available to the patient and staff. I personally examined, reviewed labs, diagnostic images/reports, interpretations, treatment plans, discussed patient care with other providers and family ,
entered orders as appropriate and documented the medical record.
Prognosis guarded
Anticipated Discharge: > 48 hours
Subjective/Interval History
-
Date of Service: May 02, 2025
Objective Data
-
Labs:
Laboratory Results
05/02/25 05/02/25
02:48 02:52
WBC 21.8 H
Hgb 10.9 L
Hct 31.0 L
Plt Count 394
APTT 73.5 H
HCO3 18.2 L
Sodium 142
Potassium 4.2
Chloride 112 H
Carbon Dioxide 17 L
BUN 68 H
Creatinine 3.9 H
Glucose 127 H
Calcium 7.4 L
Vital Signs:
Vital Signs
Temp Pulse Resp BP Pulse Ox
100.8 F H 76 27 88/51 96
05/02/25 10:44 05/02/25 11:00 05/02/25 11:00 05/02/25 09:01 05/02/25 11:00
I&O
05/01/25 05/02/25 05/03/25
06:59 06:59 06:59
Intake Total 980 / 1150 4675.1 / 4768.5 784.8 / 784.8
Output Total 1565 / 1665 555 / 555
Balance 948 / 1118 3110.1 / 3103.5 229.8 / 229.8
[2025-05-02 12:55] VITALS: BP 122/72
--- NOTE | 2025-05-02 13:02 | PTCARENOTE ---
His daughter Any [phone] was provided an update over the phone with the pt's permission.
--- NOTE | 2025-05-02 14:35 | CM ---
Remains intubated, sedated, wean pressors as able, IV/AB, LLL PNA, guarded prognosis. Discharge POC: TBD with medical progression.
[2025-05-02] MEDS: HYDROPHOR 1 APPLIC TOPICAL (15:03)
--- NOTE | 2025-05-02 18:02 | CON.MD ---
Consultation - Medical
-
Chief complaint:
Right second toe gangrenous changes
History of Present Illness
Patrice Mera is a 50-year-old man being evaluated at the request of Dr. Callahan in regards to right 2nd toe gangrene. History is obtained from chart review alone as the patient is currently intubated.
The patient recently was admitted to [facility] from 02/20/2025 through 03/06/2025, during which time he was treated for left lower extremity cellulitis and opioid withdrawal.
He presented back to the emergency room on 04/30/2025 secondary to chest pain and shortness of breath, along with right lower extremity pain following an injury to his toe several days prior.
Past History:
CVA (thalamic bleed) with right hemiplegia
Chronic back pain
Substance abuse
Additional Past Surgical History:
Right knee arthroscopy
Intracerebral shunt
Allergies:
clindamycin Allergy (Verified 04/30/25 16:59)
UnknownCorticosteroids (Glucocorticoids) Allergy (Verified 04/30/25 16:59)
Unknowndiphenhydramine HCl (From Benadryl) Allergy (Verified 04/30/25 16:59)
Unknownhydrocodone bitartrate (From Vicodin) Allergy (Verified 04/30/25 22:45)
vomitinghydroxyzine (Hydroxyzine) Allergy (Verified 04/30/25 16:59)
UnknownIodinated Contrast Media Allergy (Verified 04/30/25 22:45)
Vomitingpeach Allergy (Verified 04/30/25 16:59)
Tongue SwellingPenicillins Allergy (Verified 04/30/25 16:59)
Shortness of Breath; tolerated cefepimesulfamethoxazole (From Bactrim) Allergy (Verified 04/30/25 16:59)
Unknowntramadol Allergy (Verified 04/30/25 16:59)
'throat swells up'trimethoprim (From Bactrim) Allergy (Verified 04/30/25 16:59)
Unknown
Medications Reviewed: Yes
Current Antibiotics:
Vancomycin (dosing per pharmacy)
Cefepime 1 gm IV q.24 hours
Metronidazole 500 mg IV q.8 hours
Social History
Tobacco: Smoker
Alcohol: Occasional
Drug: Former User
Personal:
Living: With Family
Employment: Employed
Physical Exam:
Right LE with palpable pulses, generalized edema. Lower legs are bandaged. The distal half of the second toe is dark and necrotic with fibrotic necrotic wound formation that probes directly to the distal bones of the toe. There is malodor
X-ray right foot: Soft tissue injury versus ulceration involving the second digit with soft tissue swelling. The cortex of the distal phalanx is indistinct. This may be related to projection, though the possibility of osteomyelitis cannot be
excluded.
Assessment:
Right 2nd toe gangrenous changes with exposed bone
MRSA bacteremia
Hypoxemic respiratory failure
Leukocytosis
SINDY
Plan:
I recommend betadine soaked gauze to the toe - change every other day.
Given non viable appearance to the toe, he will require toe amputation when medically stable.
Consultation
-
Date/Time Consultation Requested: 05/01/25
Date/Time Consultation Performed: 05/02/25
Performing Provider: [place]
Reason for Consultation: Right 2nd toe wound
[2025-05-02 18:11] LABS: Glucose - Point of Care 137 mg/dl (70-99)
[2025-05-02 18:42] VITALS: BP 101/56
[2025-05-02] MEDS: ATIVAN 0.5 MG TUBE (19:33)
--- NOTE | 2025-05-02 20:20 | PTCARENOTE ---
Received patient intubated, sedated, and restrained. PERRLA 2 mm, sluggish. Patient opens eyes to voice and follows commands, able to nod yes or no appropriately to make needs known. B/l wrist restraints intact. NS 70s, maintaining MAP>65, on
norepinephrine gtt. Heparin gtt at 2100 units, Precedex at 1.5 mcg/kg/hr. Right IJ trialysis patent, WNL, dressing CDI. PIVs patent, WNL. Left radial arterial line zeroed, flushed, and leveled. Temp 100.2. Doppler pedal pulses b/l, +2 LLE edema, +3
RLE edema. 8.0 ETT, 24 at the lip, moved to the center. Vent settings AC 16/500/40%/5. Lung sounds slightly coarse and diminished throughout. Abdomen soft, round, obese, hypoactive bowel sounds. Cheng in place draining she colored urine. Mouth
care done, repositioned. Wound dressings on b/l LE CDI. Hourly rounding and patient safety checks ongoing.
[2025-05-02 21:13] LABS: Blood Urea Nitrogen 55 mg/dl (9-20); Calcium 6.9 mg/dl (8.4-10.2); Carbon Dioxide 21 mmol/L (22-30); Chloride 114 mmol/L (98-107); Estimated Creatinine Clearance 63 ml/min; Glucose 137 mg/dl (70-99); Potassium 3.7 mmol/L (3.5-5.1); Sodium 142 mmol/L (135-145); eGFR 38.11
[2025-05-02] MEDS: CALCIUM GLUCONATE 130 MG IV (21:42)
--- NOTE | 2025-05-02 22:10 | PTCARENOTE ---
Wound care done on b/l LE, calcium repleted.
--- NOTE | 2025-05-02 22:15 | W.PN.UPDATE ---
Update Note
Progress Note Update
05/02/25
2200 - Family at bedside, daughter, requested update on plan of care. All questions answered. Encouraged family to discuss further with dayteam again tomorrow morning.
[2025-05-02 23:13] LABS: Glucose - Point of Care 115 mg/dl (70-99)
--- NOTE | 2025-05-03 00:20 | PTCARENOTE ---
Assumed care 2299 --> reviewed plan w. Offgoing RN.
Remains intubated/sedated see titration flowsheets.
Minimal vasopressor support. NSR rose Ectopy noted, normothermic.
Adequate urine OP, Euglycemic.
[2025-05-03] MEDS: PRECEDEX 100 IV ×9 (01:35→21:47)
[2025-05-03] MEDS: MERREM 500 MG IV ×4 (01:36→19:20)
[2025-05-03] MEDS: STERILE WATER FOR INJECTION 10 ML IV ×4 (01:36→19:20)
[2025-05-03] MEDS: SUBLIMAZE 50 MCG IV ×2 (03:38→22:35)
[2025-05-03] MEDS: ZANAFLEX 2 MG TUBE ×3 (03:40→17:15)
--- NOTE | 2025-05-03 04:34 | PTCARENOTE ---
No change in pt. assessment.
[2025-05-03 04:39] LABS: B.E. -1.9 mmol/L; HCO3 22.1 mmol/L (21-28); O2 Saturation % 95.9 % (94-98); PCO2 34 mmHg (35-48); PO2 68 mmHg (83-108)
[2025-05-03 04:47] LABS: Hematocrit 31.0 % (39.0-52.0); Hemoglobin 10.7 g/dL (13.0-18.0); Mean Corp Hgb Conc. 34.5 g/dL (33.0-37.0); Mean Corpuscular Volume 78.9 fL (80.0-94.0); Platelet Count 398 10^3/uL (130-400); Red Cell Dist. Width 16.8 % (11.5-14.5)
[2025-05-03 04:50] LABS: APTT 76.0 Sec (23.4-35.0)
[2025-05-03 05:22] LABS: Blood Urea Nitrogen 51 mg/dl (9-20); Calcium 8.0 mg/dl (8.4-10.2); Carbon Dioxide 21 mmol/L (22-30); Chloride 116 mmol/L (98-107); Estimated Creatinine Clearance 89 ml/min; Glucose 133 mg/dl (70-99); Magnesium 2.5 mg/dl (1.6-2.3); Potassium 3.9 mmol/L (3.5-5.1); Sodium 144 mmol/L (135-145); eGFR 57.07
[2025-05-03] MEDS: NOVOLOG FLEXPEN-LOW RESISTANCE SC ×4 (05:24→23:36)
[2025-05-03 06:00] VITALS: BMI 36.8
--- NOTE | 2025-05-03 07:32 | W.PN.INTV ---
Today's Communication / Plan
Recommendations
Off pressors, ECHO stable
SBT but will likely not extubate today given clinical condition
Continue Abx per ID
Can stop IV heparin--NOT likely PE
Wean sedation as able
Supportive care
Assessment
-
Patient is a 50-year-old male with previous history of opiate use disorder, left thalamic intracranial hemorrhage, presenting to ER with complaints of chest pain, shortness of breath and right toe pain. He arrived in the ER in apparent
respiratory distress with increased work of breathing. He was tried on BiPAP but could not tolerate it. He was admitted here recently in January for opiate use disorder and withdrawal symptoms. UDS is positive for fentanyl, amphetamines,
benzodiazepines. Chest x-ray demonstrating mild left lower lobe pneumonia, he is on HFNC (PAO2 on ABG 73). Admitted to ICU for hypoxemia.
Profound septic shock on 4 pressors: levo, vaso, epi, giapreza--improving
Suspect acute opiate w/d
UDS +Fent
LLL PNA
Acute hypoxic respiratory failure on high flow nasal cannula-->intubation 05/01
Metabolic acidosis
Acute kidney injury, creatinine 6.9
Leukocytosis
GP bacteremia
Tick bite
Possible skin infection/cellulitis
Conditions present DONOR RECRUITER
Cellulitis left lower extremity
Hypertensive urgency
Opiate abuse with withdrawal
Microscopic hematuria, Albuminuria noted in the urine
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
Leukocytosis- elevated since 2008 labs
Chronic back pain
Morbid obesity with a BMI of 39
History of nephrolithiasis
Possible sleep apnea-needs outpatient study asleep
ADHD
Hepatic steatosis per prior imaging
Active smoker
Plan
Had been awake/alert, MS declining--intubated on sedation
Psychiatric history noted above including IVDU, ADHD history
UDS + multidrug use, CVA history
Denies pain at this time.
Pain/sedation: Fent, procedex
RASS goals: -1 to 0
Hemodynamically unstable, requiring pressors: levo, vaso, epi, giap--not completely off pressors
Cardiac history reviewed--HTN, CVA
No prior ECHO for review, ECHO obtained/stable function
Monitor on telemetry
Placed on heparin gtt for suspected PE by primary service, unlikely--would stop
Oxygen needs: on HFNC --> BIPAP, not improving --> intubated 05/01
Vent setting reviewed: AC 500/18/02+
Repeat ABG adequate
Prior history of lung disease: likely has FRANKO not diagnosed
Supplemental O2 as indicated to maintain sats > 89%
CXR/CT reviewed, stable lines, possible LLL PNA atelectasis
ProBNP 500
Plan for SBT today but given clinical status, will wait to extubate in 24 hours
NPO, resume diet on extubation
DHT --> Start TFs
Optical Glass Wet Inspector recommendations
Aspiration precautions, HOB > 30 degrees
Speech therapy eval can be considered if at elevated risk
GI prophylaxis if indicated for mechanical ventilation >48 hours, prior history of GERD, stress ulcer formation in the critically ill
SINDY present--resolving
Renal consult, planning for HD, could not tolerate CRRT --discontinued
HD on hold, UO and creat improving today
Void trials
Follow urine output, critical I/Os
Fever and increased WBC on presentation, suspect underlying sepsis
Started on empiric antibiotics--MRP IV
Cultures sent/pending
Blood-- GPC + await further final results
Urine + yeast
Tick noted, serology sent
Follow fever trend, WBC count
ID Following
CT Thigh w/ IV contrast--no evidence of skin infection
CBC stable, no signs of bleeding or coagulopathy.
DVT prophylaxis as assessed based on risk, including mechanical SCDs
Can transfuse if indicated for Hb <7, plt < 10
INR WNL
No prior h/o diabetes or thyroid disease
Monitor accuchecks PRN/SS coverage if needed
HbA1c 5.7
Diagnostic Data
Chest X-Ray: 04/30/25- Mild left lower lobe pneumonia. Trace bilateral pleural effusions.
CT Scan: CT head 01/2025: There is a ventricular shunt present which enters from the right superior frontal region, with tip of the shunt to the junction of the inferior frontal horn of the right lateral ventricle and the third ventricle. There is
decreased size of the right lateral ventricle when compared to the left, and slight shift of the septum pellucidum toward the left, and findings suggest peripheral arterial shunting of the right lateral ventricle when compared to the left. There is
no evidence of acute intracranial hemorrhage. In the inferior aspect of the left thalamus, there is a small focal area of decreased density measuring 1.5 cm transverse by 0.8 cm AP, compatible with encephalomalacia from previous region of
intracranial hemorrhage. No abnormal extra-axial collection is identified. There is 80% opacification of the sphenoid sinus, slightly improved from previous examination. The rest of the paranasal sinuses appear clear. The mastoid air cells appear
clear.
AP 02/23/25- 2 small nephroliths within the posterior upper pole the right kidney. As described, evidence for blood products/hematoma within the calyces of the upper pole of the right kidney. Wall of the urinary bladder appears mildly diffusely
thickened, which may be on the basis of incomplete distention, but correlate clinically to exclude cystitis. Mild hepatomegaly with no focal hepatic lesion. Thickening of the wall the duodenum extending from the duodenal bulb contiguously through
the distal third portion, with stranding of the adjacent fat. Main differential considerations of primary duodenitis, versus reactive duodenitis from pancreatitis. There is mild stranding of the fat adjacent to the pancreatic head with no focal
collection. Mild to moderate subcutaneous edema greatest in the lateral flanks.
Echo: 05/01/25- Normal biventricular size and systolic function without regional wall motion abnormality. LV ejection fraction is 55-60% by visual assessment. Normal diastolic function. No significant valvular disease. No obvious vegetation. No
prior study available for comparison.
PFT's:
Reports and relevant images were personally reviewed.
Critical Care time 41 mins -- The patient is admitted for acute critical illness for the treatment of vital organ failure and/or prevention of further life-threatening conditions. Total care includes time spent in review of history, physical exam,
medications, hemodynamic/ventilator parameters, laboratory data, imaging and discussion with house staff, pharmacy, respiratory therapy, therapy assistant, and nursing.
Subjective Dataa
Subjective Data
Date of Service:
Date of Service: May 03, 2025
Chief Complaint: Finance Consultant Follow Up
Subjective:
Remains intubated, overnight off pressors
No new issues, labs improving
Objective Data
Data Reviewed
Vital Signs / I&O / Oxygen:
Vital Signs
Temp Pulse Resp BP Pulse Ox
99 F 61 24 101/56 93
05/03/25 03:14 05/03/25 04:30 05/03/25 04:30 05/02/25 18:42 05/03/25 04:30
Intake and Output
05/02/25 05/03/25 05/04/25
06:59 06:59 06:59
Intake Total 4675.1 / 4768.5 2809.0 / 2809.0
Output Total 1565 / 1665 2485 / 2485
Balance 3110.1 / 3103.5 324.0 / 324.0
SaO2 [A/C] 97
SaO2 93
Nasal Cannula flow liters per 60
minute
Physical Exam
General: Other (chronically ill appearing, obese)
HEENT: Normocephalic and Anicteric
Cardiovascular: S1-S2, Regular Rhythm and Peripheral Edema (chronic venous stasis changes)
Respiratory: Clear, Non-Labored Respirations and ET Tube
GI: Soft, Non Distended and Non Tender
Neurology: Awake (with verbal/tactile stim) and Lethargic (sedated/intubated)
Skin: Warm, Dry and Rash (throughout LEs, fluctuance on R inner thigh)
Labs/Micro/Reports
Lab Data
05/03/25 04:25
05/03/25 04:25
Laboratory Results
05/03/25
04:25
APTT 76.0 H
pH 7.42
pCO2 34 L
pO2 68 L
HCO3 22.1
O2 Delivery Level
Microbiology
05/02/25 03:16 Blood/Venous Blood Culture - Preliminary
Positive culture in progress
05/02/25 03:16 Blood/Venous Gram Stain - Preliminary
05/01/25 17:45 Blood/Venous Blood Culture - Preliminary
Positive culture in progress
05/01/25 17:45 Blood/Venous Gram Stain - Preliminary
05/01/25 01:32 Urine Urine Culture - Preliminary
Yeast
04/30/25 19:46 Blood/Venous Blood Culture - Preliminary
Staph aureus MRSA
04/30/25 19:46 Blood/Venous Gram Stain - Preliminary
04/30/25 19:46 Blood/Venous Blood Culture - Preliminary
Staph aureus MRSA
04/30/25 19:46 Blood/Venous Gram Stain - Preliminary
05/01/25 01:17 Blood/Venous Blood Parasites Smear - Final
04/30/25 23:02 Nasal Swab Influenza Types A & B (GIORGIO) - Final
Negative for Influenza A & B, NAAT
Negative results must be combined with clinical observations
and patient history.
Nucleic Acid Amplification test (NAAT)performed on the
[employer] platform.
--- NOTE | 2025-05-03 07:54 | PHA.VAN.FU ---
Addendum entered and electronically signed by Marisel Richardson [facility] 05/03/25 19:04:
05/03 vancomycin random level:18.5
Level drawn ~7 hours after vancomycin 1500 mg dose
Will order vancomycin 1000 mg x 1 dose for now and recheck random level 8/3 AM labs
Original Note:
Vancomycin Assessment / Plan
- Assessment
Renal Function: SCR Decreasing
WBC's are: Trending Up
In the past 24 hrs, patient has been: Febrile
Concomitant Antimicrobials: meropenem
- Assessment - Therapeutic Drug Monitoring
Random Level: 05/03 @0425=<5
- Dosing Plan
Dosing by Level: Re-dose today (1500mg)
- Monitoring Plan
Random Level: Another level to be drawn on 05/03 at 1800 for a possible redose
- Follow Up
Pharmacy will continue to follow.
Vancomycin Follow UP
- -
Patient Age: 50
Patient Sex: Male
Vancomycin Day #: 3
Indication: Bacteremia
Requesting Provider: Dr. Hoskins/Dr. Amador
Pertinent Antimicrobial Allergies:
clindamycin - reaction unknown
penicillins - shortness of breath; tolerated cefepime
trimethoprim/sulfamethoxazole - reaction unknown
Height / Weight:
Height 6 ft 3 in
Actual Weight 133.6 kg
Pertinent Past Medical History: IV NATI, BMI 36
- Vital Signs / Lab Results
Temp Pulse Resp BP Pulse Ox
99 F 61 24 101/56 96
05/03/25 03:14 05/03/25 04:30 05/03/25 04:30 05/02/25 18:42 05/03/25 07:37
Lab Results - Hematology
04/30/25 05/01/25 05/01/25
19:38 01:17 03:48
WBC 20.9 H 15.4 H 12.8 H
Band Neutrophils
05/02/25 05/03/25
02:48 04:25
WBC 21.8 H 25.4 H
Band Neutrophils 11 H
Lab Results - Chemistry
04/30/25 04/30/25 05/01/25
19:38 20:17 01:15
BUN Cancelled 57 H 58 H
Creatinine Cancelled 6.9 H* 6.4 H*
Estimated Creat Clear Cancelled 19 20
Albumin Cancelled 3.3 L
05/01/25 05/01/25 05/01/25
03:48 12:18 20:10
BUN 63 H 66 H 66 H
Creatinine 6.4 H* 6.6 H* 5.4 H*
Estimated Creat Clear 20 20 24
Albumin 2.8 L 2.8 L
05/02/25 05/02/25 05/03/25
02:48 20:14 04:25
BUN 68 H 55 H 51 H
Creatinine 3.9 H 2.1 H 1.5 H
Estimated Creat Clear 34 63 89
Albumin
04/30/25 05/01/25 05/01/25
19:46 01:17 12:18
Lactic Acid 2.0 1.4 1.9
Microbiology Results
05/02/25 03:16 Blood Culture - Preliminary
Blood/Venous Positive culture in progress
Gram Stain - Preliminary
05/01/25 17:45 Blood Culture - Preliminary
Blood/Venous Positive culture in progress
Gram Stain - Preliminary
05/01/25 01:32 Urine Culture - Preliminary
Urine Yeast
04/30/25 19:46 Blood Culture - Preliminary
Blood/Venous Staph aureus MRSA
Gram Stain - Preliminary
04/30/25 19:46 Blood Culture - Preliminary
Blood/Venous Staph aureus MRSA
Gram Stain - Preliminary
05/01/25 01:17 Blood Parasites Smear - Final
Blood/Venous
Therapeutic Drug Monitoring
Random Vancomycin < 5.0 ug/ml 05/03/25 04:25
--- NOTE | 2025-05-03 08:15 | PTCARENOTE ---
Received pt in Contact Isolation, intubated and sedated w/bilateral soft wrist restraints intact. He opened his eyes to RN entering the room. Following simpla commands and FLORES. Noddinghis head in understanding and using hand gestures to communicate.
Right IJ TL HD catheter with Precedex & Fentanyl infusing via pigtail port. Heparin drip infusing via right hand #20g protective catheter. Left radial arterial line transduced, calibrated and monitored, with all ports patent and secured, correlated
to cuff pressure. Doppler pedal pulses. Right L/E more edematous than the left. #8ETT secured 25cm centered. Tolerating ventilator. Breath sounds CTA & dim in the bases. +hypoactive BSx4. Large round abdomen. Morbidly obese. Right nare DHT secured
84cm. Placement verified w/Air bolus then aspirated air, flushed and patent. Temperature sensing Cheng catheter with she urine with sediment. Rash resolving to his Left lateral thigh & smaller areas on his lower abdomen. Bilateral L/Es dressings
CDI. Compression therapy with CHAUNCEY wraps applied as ordered. Air chair cushion applied under his L/E's. Safe environment maintained. Will continue to monitor.
[2025-05-03] MEDS: DESENEX/MITRAZOL/ZEASORB 1 APPLIC TOPICAL ×2 (08:28→20:53)
[2025-05-03] MEDS: HYDROPHOR 1 APPLIC TOPICAL (08:28)
[2025-05-03 08:32] VITALS: BP 114/74
[2025-05-03] MEDS: PROTONIX IV 40 MG IV (08:35)
[2025-05-03] MEDS: NSS (PRESERVATIVE FREE) 10 ML IV (08:35)
[2025-05-03] MEDS: MIRALAX 17 GRAMS TUBE (08:36)
[2025-05-03] MEDS: TYLENOL ORAL SOLUTION 650 MG TUBE ×2 (08:36→16:47)
[2025-05-03] MEDS: SUBLIMAZE 100 IV (09:23)
[2025-05-03] MEDS: VANCOCIN 530 MG IV (09:29)
[2025-05-03] MEDS: HEPARIN 25000 UNITS/250 ML IV (09:48)
--- NOTE | 2025-05-03 10:04 | W.PN.HOSP.TC ---
Today's Communication/Plan
-
Will get a CTA of the chest to rule out PE tomorrow and if negative. Heparin drip
Hold antihypertensives
Off pressors
Start tube feeds
Will need toe amputation
Should he get amputation prior to extubation?
Assessment / Plan
Assessment / Plan
'50-year-old man presented to the hospital with right lower extremity after he injured his toes a few days ago. He has also been feeling short of breath and a pressure in his chest. He has lost a friend recently to drugs. This is per ER records.
I spoke to patient's mom as I was not able to reach his or daughter listed as contacts. Per mom after his discharge from here in March he went to the rehab and signed himself out after 2 days. He went to mom's place and lives with her.
Patient's spouse was admitted to the rehab around the same time he was and she still remains in the rehab. Mom states that he goes to [place] and does not listen to her. He yells at her often. She requests some kind of help to control him.
Requested a psychiatry evaluation to see if he is able to make his decisions or if he needs a guardian from the [facility]. She feels helpless about his situation.'
On examination
Patient on the ventilator awake and alert able to follow directions
Pupils equal and reactive
Cardiovascular system S1-S2
Chest decreased breath sounds at bases
Abdomen soft and nontender
Bilateral lower extremity edema with skin thickening, dry skin, multiple small areas of skin breaks noted. Right second toe with ulceration, edema and oozing. Decreased pulses felt bilateral dorsalis pedis. Feet are warm to touch.
Facial droop-chronic
Able to squeeze with his hands and follow directions
Rash on inner thigh and also an area of induration in the inner thigh on the right side, rash in the inner thigh better.
Venous Dopplers lower extremity-no DVT noted
Echo 05/01/2025-normal biventricular size and systolic function. EF 55 to 60% no vegetation
CT right lower extremity with contrast-subcutaneous stranding within the soft tissues of the anterior thigh and below the knee. No abscess. Moderate suprapatellar joint effusion with areas of loculation. Moderate pelvic free fluid of unknown
etiology. Right inguinal and right iliac chain lymphadenopathy which may be reactive, neoplastic enlargement is not excluded.
# Acute respiratory failure
VDRF
Multifactorial reasons
Possible pneumonia, sepsis, metabolic acidosis. Cannot rule out PE.
Continue heparin drip until PE ruled out, ? CTA tomorrow?
On Precedex, fentanyl
Antibiotics meropenem and vancomycin
Ventilator support
ECHO as above
# MRSA sepsis present on admission
Septic shock-was on 3 pressors and angiotensin II
Currently off of angiotensin II and pressors
Normal lactic acid level
Cx positive from 04/30, 05/01,05/02
Repeat blood cultures ordered for today and tomorrow
Continue vancomycin
Leukocytosis noted
Source is likely foot
Will need amputation of the toe-podiatry consulted and following
CT with no abscess
LENNY order placed with decreased pulses
Antibiotics as above
# Acute kidney injury
Patient briefly required CRRT but could not tolerate long
Improving creatinine
He is making urine now
Ultrasound of the kidneys with no obstruction
Urinary diversion with Cheng catheter
Nephrology following
# Metabolic acidosis-likely secondary to renal failure. Better
# Drug abuse urine drug screen positive for fentanyl, , benzos,amphetamines and methamphetamines
Patient was discharged to a rehab last admission however he stayed there only for 2 days and signed himself out
# Multidrug resistant hypertension-currently blood pressure stable without medicines. Watch off of medicines.
Patient was on Coreg, losartan, clonidine, Aldactone as outpatient.
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 Transferred to [facility] . Pt says he was there for 3 months and has weakness of right side and facial droop. Pt appropriately responding.
#Chronic back pain
#Morbid obesity with a BMI of 35- Weight loss recommended
#History of nephrolithiasis
#Possible sleep apnea-needs outpatient study as OP.
#ADHD
#Hepatic steatosis per prior imaging-outpatient follow-up
# Active smoker-cessation counseling when able
# Hypoalbuminemia
# Nutrition-start tube feeds
#DVT prophylaxis-Heparin drip
#Full code
Spoke to mother and updated. Patient's mom stated that when he comes off of the ventilator or off restraints he can be 'very nasty', she just wanted to warn . Updated that he might need amputation and he is still sick with blood cultures still
positive.
Part of this note was created using voice recognition system. Occasional wrong word or��sound alike� substitutions may have inadvertently occurred due to the inherent limitations of voice recognition software. If noted kindly bring it to my
attention for correction.
Total Critical Care Time 38 minutes. I was immediately available to the patient and staff. I personally examined, reviewed labs, diagnostic images/reports, interpretations, treatment plans, discussed patient care with other providers and family
, entered orders as appropriate and documented the medical record.
Anticipated Discharge: > 48 hours
Subjective/Interval History
-
Date of Service: May 03, 2025
Objective Data
-
Labs:
Laboratory Results
05/03/25
04:25
WBC 25.4 H
Hgb 10.7 L
Hct 31.0 L
Plt Count 398
APTT 76.0 H
HCO3 22.1
Sodium 144
Potassium 3.9
Chloride 116 H
Carbon Dioxide 21 L
BUN 51 H
Creatinine 1.5 H
Glucose 133 H
Calcium 8.0 L
Vital Signs:
Vital Signs
Temp Pulse Resp BP Pulse Ox
99.0 F 63 25 114/74 94
05/03/25 08:07 05/03/25 09:15 05/03/25 09:15 05/03/25 08:32 05/03/25 09:15
I&O
05/02/25 05/03/25 05/04/25
06:59 06:59 06:59
Intake Total 4675.1 / 4768.5 2809.0 / 2885.9 359.2 / 359.2
Output Total 1565 / 1665 2485 / 2620 370 / 370
Balance 3110.1 / 3103.5 324.0 / 265.9 -10.8 / -10.8
[2025-05-03] MEDS: CALCIUM GLUCONATE 100 IV (11:13)
--- NOTE | 2025-05-03 11:16 | W.PN.NEPH.PH ---
Addendum entered and electronically signed by Kamini Hodgson MD 05/03/25 11:36:
since allergic to sulfa, will give bumex
ok for FW in [facility]
Original Note:
Today's Communication / Plan
-
see plan
Assessment/Plan
-
IMP:
Acute kidney injury
Septic shock
Cellulitis left lower extremity
Opiate abuse with withdrawal
Microscopic hematuria, Albuminuria noted in the urine
History of CVA-left thalamus measuring at least 2.5 cm bleed 01/07/24. ventricular shunt
Leukocytosis- elevated since 2008 labs
Chronic back pain
Morbid obesity with a BMI of 39
History of nephrolithiasis
Possible sleep apnea-needs outpatient study asleep
ADHD
Hepatic steatosis per prior imaging
Active smoker
Plan:
cr improving and remains non oliguric
wt is increasing, will dose lasix x1
Bp stable with out pressors
ok to remove CVC catheter
remains on intubated
replace sujit prn
d/w nursing
CC time spent 31min
-
-
Date of Service: May 03, 2025
CC / HPI / ROS
-
Chief Complaint:
Acute kidney injury septic shock drug abuse
History of Present Illness:
cr improving to 1.5
Bp stable off pressors
calcium better at 8
Review of Systems:.
Intubated, Fio2 40%
Nonoliguric with haney
Labs
-
Labs:
WBC 25.4 10^3/uL (4.8-10.8) H 05/03/25 04:25
RBC 3.93 10^6/uL (4.70-6.10) L 05/03/25 04:25
Hgb 10.7 g/dL (13.0-18.0) L 05/03/25 04:25
Hct 31.0 % (39.0-52.0) L 05/03/25 04:25
Plt Count 398 10^3/uL (130-400) 05/03/25 04:25
Sodium 144 mmol/L (135-145) 05/03/25 04:25
Potassium 3.9 mmol/L (3.5-5.1) 05/03/25 04:25
Chloride 116 mmol/L (98-107) H 05/03/25 04:25
Carbon Dioxide 21 mmol/L (22-30) L 05/03/25 04:25
BUN 51 mg/dl (9-20) H 05/03/25 04:25
Creatinine 1.5 mg/dL (0.7-1.3) H 05/03/25 04:25
eGFR 57.07 05/03/25 04:25
Glucose 133 mg/dl (70-99) H 05/03/25 04:25
Calcium 8.0 mg/dl (8.4-10.2) L 05/03/25 04:25
Phosphorus 3.2 mg/dl (2.5-4.5) 05/03/25 04:25
Two-I-Umjbsoaqfdn Pept 582 pg/ml 05/01/25 03:48
Albumin 2.8 g/dl (3.5-5.0) L 05/01/25 12:18
Physical Exam
-
Vital Signs:
Vital Signs
Temp Pulse Resp BP Pulse Ox
99.0 F 63 25 114/74 96
05/03/25 08:07 05/03/25 09:15 05/03/25 09:15 05/03/25 08:32 05/03/25 10:45
Cardiovascular:: Regular rate and rhythm
Respiratory:: Bilateral: CTA (anteriorly)
Abdomen:: Nontender and Soft
Extremity Edema:: +3: Bilateral:
Haney Catheter: Yes
--- NOTE | 2025-05-03 11:34 | W.PN.ID1 ---
Date of Service
Date of Service: May 03, 2025
Today's Communication
Recommend JEAN next week.
Assessment / Plan
Sustained complicated MRSA bacteremia
Hypoxemic respiratory failure
Fever persists
Leukocytosis worse
SINDY
- improving
Anemia
Substance abuse (UDS with fentanyl, amphetamine, methamphetamine, benzodiazepine)
Right second toe infection/gangrene; suspected osteomyelitis
Hx CVA (thalamic bleed) with right hemiplegia
Chronic back pain
Recommendations:
Patient remains critically ill
Serial blood cultures to assess ongoing bacteremia (ordered through 05/05/25)
TTE without noted valvular disease.
Ongoing fevers noted.
Recommend JEAN next week.
Patient with in the medial right thigh area. serpiginous rash improving
CT of the right leg - no drainable fluid collection on thigh/leg.
- Moderate suprapatellar joint effusion with areas of loculation.
Local care to the right second toe with gangrene.
Eventual amputation when medically stable.
Continue empiric meropenem 500 mg IV q.24 hours
Continue vancomycin. Follow Vanco levels closely.
Follow white count and temperature curve.
Continue with supportive measures. Overall outlook extremely guarded.
Patient remains critically ill, with VDRF, in intensive care unit.
����������������������������������������������������������
Chief Complaint
-: Clinical Sepsis and Bacteremia
Subjective / Review of Systems
Remains intubated.
Vital Signs / Physical Exam
Vital Signs
Vital Signs
Temp Pulse Resp BP Pulse Ox
99.0 F 53 22 114/74 94
05/03/25 08:07 05/03/25 11:15 05/03/25 11:15 05/03/25 08:32 05/03/25 11:15
Physical Exam
Constitutional: Acutely Ill and Chronically Ill
Head: Other (ET tube in place.)
Eyes: No Conjunctival Hemorrhage and Sclera Anicteric
Cardiovascular: Regular Rate and S1/S2; Negative S3/S4 or Murmur
Pulmonary: Clear, Wheezes and Rales
Gastrointestinal: Soft, Non Distended, Normal Bowel Sounds, No Rebound and No Guarding
Genito-Urinary: Cheng and Clear Urine; Negative Turbid Urine or Hematuria
Extremities: Edema and Other (Bilateral lower extremity hyperkeratosis 2* to venous stasis)
Musculoskeletal: Joint Effusion (Right knee without erythema/warmth)
Skin: Rash (Serpiginous rash noted on medial right thigh and right knee- resolving. Rash localized to left thigh)
Wound: Other (Right second toe mottled and dark. Positive wound)
Objective Data
Lab Data
Lab Results
05/03/25 04:25
05/03/25 04:25
PT 20.0 Sec (11.4-14.6) H 04/30/25 19:46
INR 1.65 04/30/25 19:46
APTT 76.0 Sec (23.4-35.0) H 05/03/25 04:25
Estimated Creat Clear 89 ml/min 05/03/25 04:25
Lactic Acid 1.9 mmol/L (0.7-2.0) 05/01/25 12:18
Total Bilirubin 1.8 mg/dl (0.2-1.3) H 05/01/25 12:18
AST 38 U/L (17-59) 05/01/25 12:18
ALT 17 U/L (0-50) 05/01/25 12:18
Alkaline Phosphatase 71 U/L (38-126) 05/01/25 12:18
Most recent labs reviewed.
Micro Results:
05/01/25 17:45 Blood Culture - Preliminary
Blood/Venous Positive culture in progress
Gram Stain - Preliminary
04/30/25 19:46 Blood Culture - Preliminary
Blood/Venous Staph aureus MRSA
Gram Stain - Preliminary
04/30/25 19:46 Blood Culture - Preliminary
Blood/Venous Staph aureus MRSA
Gram Stain - Preliminary
05/03/25 04:25 Blood Culture - Pending
Blood/Venous
05/02/25 03:16 Blood Culture - Preliminary
Blood/Venous Positive culture in progress
Gram Stain - Preliminary
05/01/25 01:32 Urine Culture - Preliminary
Urine Yeast
05/01/25 01:17 Blood Parasites Smear - Final
Blood/Venous
04/30/25 23:02 Influenza Types A & B (GIORGIO) - Final
Nasal Swab Negative for Influenza A & B, NAAT
Negative results must be combined with clinical observations
and patient history.
Nucleic Acid Amplification test (NAAT)performed on the
[employer] platform.
Imaging:
05/02/25 CT RLE: Subcutaneous stranding within the soft tissues of the anterior right thigh, and [id number] anterior soft tissues. No drainable abscess is appreciated. Moderate suprapatellar joint effusion, with areas of loculation.
05/01/2025 ECHO (TTE): EF 55%. Normal biventricular size and systolic function. No significant valvular disease. No obvious vegetations.
05/01/2025 CXR (portable): bilateral interstitial and airspace disease noted which may reflect pulmonary edema or pneumonia. Small bilateral pleural effusions noted. Please see full dictation for additional detail.
05/01/2025 Abdominal x-ray. Enteric tube noted in stomach.
05/01/2025 Renal ultrasound: unremarkable renal ultrasound without hydronephrosis, contour deforming solid renal mass or echogenic shadowing foci to suggest renal calculi. Bilateral pleural effusions noted.
05/01/2025 Duplex ultrasound lower extremity: no evidence of DVT in the bilateral lower extremities
04/30/2025 X-ray right foot: soft tissue injury versus ulceration involving the second digit with soft tissue swelling. The cortex of the distal phalanx is indistinct and the possibility of osteomyelitis cannot be excluded. There is soft tissue
swelling of the first digit. No radiographic evidence to suggest osteomyelitis. Please see full dictation for additional detail.
[2025-05-03 11:45] LABS: Vitamin D, 25-OH*** < 12.8 ng/mL (30-80)
[2025-05-03 11:58] LABS: Glucose - Point of Care 126 mg/dl (70-99)
[2025-05-03 12:00] VITALS: BP_SYST 141
--- NOTE | 2025-05-03 12:00 | PTCARENOTE ---
Pt on PS/CPAP wean 5/5 with .40 FiO2. Tolerating it well. Precedex now @ 0.9mcg/kg/hr, Fentanyl drip off @ 1120.
[2025-05-03] MEDS: BUMEX 0.5 MG IV (12:32)
[2025-05-03] MEDS: MYCOSTATIN ORAL SUSPENSION 5 ML PO ×3 (12:32→21:47)
[2025-05-03 14:17] VITALS: BP 118/65
--- NOTE | 2025-05-03 14:45 | PTCARENOTE ---
Suctioned ETT for large amount of thick caicedo to brown secretions. ETT moved to the left for pt comfort. Diuresing.
[2025-05-03 17:12] LABS: Glucose - Point of Care 125 mg/dl (70-99)
--- NOTE | 2025-05-03 19:00 | PTCARENOTE ---
Received pt. at 1900. Pt. currently in bed on ventilator. Drowsy but arousable. Able to follow commands. Nods appropriately. Afebrile. Heart rhythm sinus. Blood pressure normotensive. Ventilator settings verified. Lungs sound coarse. Abdomen obese.
Tube feeds running via dobhoff. Cheng catheter in place, draining without issue. Skin as documented. Discussed plan of care with patient. Vital signs stable at this time.
[2025-05-03] MEDS: VANCOCIN 200 IV (20:53)
[2025-05-03 23:20] LABS: Glucose - Point of Care 139 mg/dl (70-99)
--- NOTE | 2025-05-04 | PTCARENOTE ---
Pt. assessment unchanged. Remains on ventilator. Intermittently awake. Able to follow commands. Nodding appropriately. Appears comfortable. Vital signs stable at this time.
[2025-05-04] MEDS: PRECEDEX 100 IV ×8 (00:12→23:59)
[2025-05-04] MEDS: STERILE WATER FOR INJECTION 10 ML IV ×4 (02:21→20:28)
[2025-05-04] MEDS: MERREM 500 MG IV ×4 (02:21→20:28)
[2025-05-04 03:21] LABS: B.E. 0.6 mmol/L; HCO3 24.5 mmol/L (21-28); O2 Saturation % 98.8 % (94-98); PCO2 36 mmHg (35-48); PO2 94 mmHg (83-108)
[2025-05-04 03:28] LABS: Hematocrit 32.0 % (39.0-52.0); Hemoglobin 10.9 g/dL (13.0-18.0); Mean Corp Hgb Conc. 34.1 g/dL (33.0-37.0); Mean Corpuscular Volume 80.8 fL (80.0-94.0); Platelet Count 345 10^3/uL (130-400); Red Cell Dist. Width 16.6 % (11.5-14.5)
[2025-05-04 03:40] LABS: APTT 59.9 Sec (23.4-35.0)
[2025-05-04 03:51] VITALS: BMI 37.0
--- NOTE | 2025-05-04 04:00 | PTCARENOTE ---
Pt. assessment remains unchanged. AM labs drawn. Vital signs stable at this time.
[2025-05-04 04:01] LABS: Blood Urea Nitrogen 41 mg/dl (9-20); Calcium 8.5 mg/dl (8.4-10.2); Carbon Dioxide 24 mmol/L (22-30); Chloride 117 mmol/L (98-107); Estimated Creatinine Clearance > 125 ml/min; Glucose 146 mg/dl (70-99); Potassium 3.4 mmol/L (3.5-5.1); Sodium 145 mmol/L (135-145); eGFR > 60.00
[2025-05-04] MEDS: NOVOLOG FLEXPEN-LOW RESISTANCE SC ×3 (05:38→23:51)
[2025-05-04] MEDS: KCL 100 IV (06:01)
--- NOTE | 2025-05-04 07:11 | PTCARENOTE ---
Received pt in contact isolation intubated and lightly sedated. He has B/L soft wrist restraints loosely tied. Aspiration precautions maintained. He is gesturing for oral swabs however his endotracheal secretions are more productive and bloody. He
was informed of the plan of care limiting oral swabs due to his endotracheal secretions being bloody and increased. I expressed my concern for aspiration PNA due to the frequent oral swabs along with tachypnea int the 30's, pulse ox dipping as low
as 87%. He gestured two thumbs up and nodded his head in understanding. Right IJ Trialysis catheter with Precedex & Fentanyl drips, right hand #20g with Heparin drip. Right Ac and left hand protective catheters both flushed and patent. He has a
small loose BM on the bed williamson then continued to have three more large loose BM's with several hard formed stool. Left radial arterial line transduced calibrated and monitored with all ports patent and secured, correlating with cuff pressure. Doppler
pedal pulses. L/E edema slightly improved with right LE> Left LE. He is able to wiggle his toes and attempts to lift both legs off the bed. Knee-hi Compression therapy maintained. He tolerated it well. Right 2nd toe dressing CDI. Heels elevated on
pillows. Temperature sensing Cheng with she urine w/sediment. Safe environment maintained.
[2025-05-04] MEDS: PROTONIX IV 40 MG IV (07:19)
[2025-05-04] MEDS: MYCOSTATIN ORAL SUSPENSION 5 ML PO ×4 (07:19→21:29)
[2025-05-04] MEDS: NSS (PRESERVATIVE FREE) 10 ML IV (07:20)
[2025-05-04] MEDS: ATIVAN 0.5 MG TUBE ×2 (07:20→21:29)
--- NOTE | 2025-05-04 07:41 | PHA.VAN.FU ---
Vancomycin Assessment / Plan
- Assessment
Renal Function: SCR Decreasing
WBC's are: Trending Down
In the past 24 hrs, patient has been: Afebrile
Concomitant Antimicrobials: Meropenem
- Assessment - Therapeutic Drug Monitoring
Random Level: 05/04 @ 0313 was 17.8 ~19 hours after dose given
- Dosing Plan
Dosing by Level: Hold off on dosing today (Considering BMI and weight, patient seems to start accumulating)
- Monitoring Plan
Random Level: 05/05 with morning labs
- Follow Up
Pharmacy will continue to follow.
Vancomycin Follow UP
- -
Patient Age: 50
Patient Sex: Male
Vancomycin Day #: 4
Indication: Bacteremia
Requesting Provider: Dr. Hoskins/Dr. Amador
Pertinent Antimicrobial Allergies:
clindamycin - reaction unknown
penicillins - shortness of breath; tolerated cefepime
trimethoprim/sulfamethoxazole - reaction unknown
Height / Weight:
Height 6 ft 3 in
Actual Weight 134.3 kg
Pertinent Past Medical History: IV NATI, BMI 36
- Vital Signs / Lab Results
Temp Pulse Resp BP Pulse Ox
98.9 F 65 16 118/65 92
05/04/25 07:12 05/04/25 06:30 05/04/25 06:30 05/03/25 14:17 05/04/25 07:12
Lab Results - Hematology
05/02/25 05/03/25 05/04/25
02:48 04:25 03:13
WBC 21.8 H 25.4 H 21.7 H
Band Neutrophils 11 H
Lab Results - Chemistry
05/01/25 05/01/25 05/02/25
12:18 20:10 02:48
BUN 66 H 66 H 68 H
Creatinine 6.6 H* 5.4 H* 3.9 H
Estimated Creat Clear 20 24 34
Albumin 2.8 L
05/02/25 05/03/25 05/04/25
20:14 04:25 03:13
BUN 55 H 51 H 41 H
Creatinine 2.1 H 1.5 H 0.9
Estimated Creat Clear 63 89 > 125
Albumin
05/01/25
12:18
Lactic Acid 1.9
Microbiology Results
05/03/25 04:25 Blood Culture - Preliminary
Blood/Venous No Growth in 24 hours- Final report to follow
04/30/25 19:46 Blood Culture - Preliminary
Blood/Venous Staph aureus MRSA
Gram Stain - Preliminary
05/02/25 03:16 Blood Culture - Preliminary
Blood/Venous Positive culture in progress
Gram Stain - Preliminary
05/01/25 01:32 Urine Culture - Final
Urine Yeast
05/01/25 17:45 Blood Culture - Preliminary
Blood/Venous Positive culture in progress
Gram Stain - Preliminary
04/30/25 19:46 Blood Culture - Preliminary
Blood/Venous Staph aureus MRSA
Gram Stain - Preliminary
Therapeutic Drug Monitoring
Random Vancomycin 17.8 ug/ml 05/04/25 03:13
--- NOTE | 2025-05-04 07:43 | W.PN.INTV ---
Addendum entered and electronically signed by Mariana Callahan, DO 05/04/25 12:53:
Correction: Discontinue* IV heparin
Addendum entered and electronically signed by Mariana Callahan, DO 05/04/25 12:39:
Septic emboli noted on CT
Continue IV heparin
Lung disease is quite extensive, this would likely impair weaning
Reviewed with care team
Original Note:
Today's Communication / Plan
Recommendations
Hypoxemia noted, more secretions--repeat CXR, sputum, change vent to 50%/8+
Agree with IV diuresis, renal following
SBT trials continue, slow wean due to clinical issues/overload/deconditioned
Abx continue, MRSA isolate noted
CTA per primary service, stop heparin if negative
Eventual toe amputation per podiatry, he has been off pressors >48 hours, could proceed to OR
Assessment
-
Patient is a 50-year-old male with previous history of opiate use disorder, left thalamic intracranial hemorrhage, presenting to ER with complaints of chest pain, shortness of breath and right toe pain. He arrived in the ER in apparent
respiratory distress with increased work of breathing. He was tried on BiPAP but could not tolerate it. He was admitted here recently in January for opiate use disorder and withdrawal symptoms. UDS is positive for fentanyl, amphetamines,
benzodiazepines. Chest x-ray demonstrating mild left lower lobe pneumonia, he is on HFNC (PAO2 on ABG 73). Admitted to ICU for hypoxemia.
Profound septic shock on 4 pressors: levo, vaso, epi, giapreza--improved now off pressors
Suspect acute opiate w/d
UDS +Fent
LLL PNA
Acute hypoxic respiratory failure on high flow nasal cannula-->intubation 05/01
Metabolic acidosis
Acute kidney injury, creatinine 6.9
Leukocytosis
GP bacteremia
Tick bite
Possible skin infection/cellulitis
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
Cellulitis left lower extremity
Hypertensive urgency
Opiate abuse with withdrawal
Microscopic hematuria, Albuminuria noted in the urine
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
Leukocytosis- elevated since 2008 labs
Chronic back pain
Morbid obesity with a BMI of 39
History of nephrolithiasis
Possible sleep apnea-needs outpatient study asleep
ADHD
Hepatic steatosis per prior imaging
Active smoker
Plan
Had been awake/alert, MS declining--intubated on sedation
Psychiatric history noted above including IVDU, ADHD history
UDS + multidrug use, CVA history
Denies pain at this time.
Pain/sedation: Fent, Precedex
RASS goals: -1 to 0
Hemodynamically stable, initially requiring pressors: levo, vaso, epi, giap--not completely off pressors x 48 hours
Cardiac history reviewed--HTN, CVA
No prior ECHO for review, ECHO obtained/stable function
Monitor on telemetry
Placed on heparin gtt for suspected PE by primary service, unlikely--would stop
CTA pending today
Oxygen needs: on HFNC --> BIPAP, not improving --> intubated 05/01
Vent setting reviewed: AC 500/20/5+ - Repeat ABG adequate on these settings
Prior history of lung disease: likely has FRANKO not diagnosed
Supplemental O2 as indicated to maintain sats > 89%
CXR/CT reviewed, stable lines, possible LLL PNA atelectasis
ProBNP 500
Repeat CXR today
SBT 05/03, tolerated for several hours, but failed after
Hypoxemia noted today 05/04, vent changed to 50%/8+
Could use additional diuresis before trials again
NPO, resume diet on extubation
DHT --> Started on TFs 05/03
Title Insurance Sales Representative recommendations
Aspiration precautions, HOB > 30 degrees
Speech therapy eval can be considered if at elevated risk
GI prophylaxis if indicated for mechanical ventilation >48 hours, prior history of GERD, stress ulcer formation in the critically ill
SINDY present--resolving
Renal consult, planning for HD, could not tolerate CRRT --discontinued 05/01
HD on hold, UO and creat improving today
Void trials
Follow urine output, critical I/Os
Agree with lasix IV
Fever and increased WBC on presentation, suspect underlying sepsis
Started on empiric antibiotics--MRP IV--changed to IV Vanc
Blood-- GPC --> MRSA
Urine + yeast
CT Thigh w/ IV contrast--no evidence of skin infection/skin lesions improving past 48 hours
Eventual toe amputation per podiatry
Tick noted, serology negative
Follow fever trend, WBC count
ID Following
CBC stable, no signs of bleeding or coagulopathy.
DVT prophylaxis as assessed based on risk, including mechanical SCDs
Can transfuse if indicated for Hb <7, plt < 10
INR WNL
No prior h/o diabetes or thyroid disease
Monitor accuchecks PRN/SS coverage if needed
HbA1c 5.7
Diagnostic Data
Chest X-Ray: 04/30/25- Mild left lower lobe pneumonia. Trace bilateral pleural effusions.
CT Scan: CT head 01/2025: There is a ventricular shunt present which enters from the right superior frontal region, with tip of the shunt to the junction of the inferior frontal horn of the right lateral ventricle and the third ventricle. There is
decreased size of the right lateral ventricle when compared to the left, and slight shift of the septum pellucidum toward the left, and findings suggest peripheral arterial shunting of the right lateral ventricle when compared to the left. There is
no evidence of acute intracranial hemorrhage. In the inferior aspect of the left thalamus, there is a small focal area of decreased density measuring 1.5 cm transverse by 0.8 cm AP, compatible with encephalomalacia from previous region of
intracranial hemorrhage. No abnormal extra-axial collection is identified. There is 80% opacification of the sphenoid sinus, slightly improved from previous examination. The rest of the paranasal sinuses appear clear. The mastoid air cells appear
clear.
AP 02/23/25- 2 small nephroliths within the posterior upper pole the right kidney. As described, evidence for blood products/hematoma within the calyces of the upper pole of the right kidney. Wall of the urinary bladder appears mildly diffusely
thickened, which may be on the basis of incomplete distention, but correlate clinically to exclude cystitis. Mild hepatomegaly with no focal hepatic lesion. Thickening of the wall the duodenum extending from the duodenal bulb contiguously through
the distal third portion, with stranding of the adjacent fat. Main differential considerations of primary duodenitis, versus reactive duodenitis from pancreatitis. There is mild stranding of the fat adjacent to the pancreatic head with no focal
collection. Mild to moderate subcutaneous edema greatest in the lateral flanks.
Echo: 05/01/25- Normal biventricular size and systolic function without regional wall motion abnormality. LV ejection fraction is 55-60% by visual assessment. Normal diastolic function. No significant valvular disease. No obvious vegetation. No
prior study available for comparison.
PFT's:
Reports and relevant images were personally reviewed.
Critical Care time 41 mins -- The patient is admitted for acute critical illness for the treatment of vital organ failure and/or prevention of further life-threatening conditions. Total care includes time spent in review of history, physical exam,
medications, hemodynamic/ventilator parameters, laboratory data, imaging and discussion with house staff, pharmacy, respiratory therapy, sustainability coach, and nursing.
Subjective Dataa
Subjective Data
Date of Service:
Date of Service: May 04, 2025
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
Subjective:
Remains intubated, off pressors 48 hours
SBT trial but patient failed after several hours
Now w/ hypoxemia, on vent
Objective Data
Data Reviewed
Vital Signs / I&O / Oxygen:
Vital Signs
Temp Pulse Resp BP Pulse Ox
98.9 F 65 16 118/65 94
05/04/25 07:12 05/04/25 06:30 05/04/25 06:30 05/03/25 14:17 05/04/25 07:39
Intake and Output
05/03/25 05/04/25 05/05/25
06:59 06:59 06:59
Intake Total 2809.0 / 2885.9 2822.23 / 2822.23
Output Total 2485 / 2620 3315 / 3315
Balance 324.0 / 265.9 -492.77 / -492.77
SaO2 [CPAP/PSV] 94
SaO2 [A/C] 95
SaO2 94
Nasal Cannula flow liters per 60
minute
Physical Exam
General: Other (chronically ill appearing, obese)
HEENT: Normocephalic and Anicteric
Cardiovascular: S1-S2, Regular Rhythm and Peripheral Edema (chronic venous stasis changes)
Respiratory: Clear, Non-Labored Respirations and ET Tube
GI: Soft, Non Distended and Non Tender
Neurology: Awake (with verbal/tactile stim), Alert and Non Verbal (but following commands)
Skin: Warm, Dry and Rash (throughout LEs, fluctuance on R inner thigh)
Labs/Micro/Reports
Lab Data
05/04/25 03:13
05/04/25 03:13
Laboratory Results
05/04/25
03:13
APTT 59.9 H
pH 7.44
pCO2 36
pO2 94
HCO3 24.5
O2 Delivery Level
Microbiology
05/03/25 04:25 Blood/Venous Blood Culture - Preliminary
No Growth in 24 hours- Final report to follow
04/30/25 19:46 Blood/Venous Blood Culture - Preliminary
Staph aureus MRSA
04/30/25 19:46 Blood/Venous Gram Stain - Preliminary
05/02/25 03:16 Blood/Venous Blood Culture - Preliminary
Positive culture in progress
05/02/25 03:16 Blood/Venous Gram Stain - Preliminary
05/01/25 01:32 Urine Urine Culture - Final
Yeast
05/01/25 17:45 Blood/Venous Blood Culture - Preliminary
Positive culture in progress
05/01/25 17:45 Blood/Venous Gram Stain - Preliminary
04/30/25 19:46 Blood/Venous Blood Culture - Preliminary
Staph aureus MRSA
04/30/25 19:46 Blood/Venous Gram Stain - Preliminary
05/01/25 01:17 Blood/Venous Blood Parasites Smear - Final
--- NOTE | 2025-05-04 07:48 | PHA.VAN.FU ---
Vancomycin Assessment / Plan
- Assessment
Renal Function: SCR Decreasing
WBC's are: Trending Down
In the past 24 hrs, patient has been: Afebrile
Concomitant Antimicrobials: Meropenem
- Assessment - Therapeutic Drug Monitoring
Random Level: 05/04 @03:13 was 17.8
- Dosing Plan
Dosing by Level: Re-dose today (Will give 1000mg on 05/04 am)
- Monitoring Plan
Random Level: Another level will be ordered for 05/04 at 1800
- Follow Up
Pharmacy will continue to follow.
Vancomycin Follow UP
- -
Patient Age: 50
Patient Sex: Male
Vancomycin Day #: 4
Indication: Bacteremia
Requesting Provider: Dr. Hoskins/Dr. Amador
Pertinent Antimicrobial Allergies:
clindamycin - reaction unknown
penicillins - shortness of breath; tolerated cefepime
trimethoprim/sulfamethoxazole - reaction unknown
Height / Weight:
Height 6 ft 3 in
Actual Weight 134.3 kg
Pertinent Past Medical History: IV NATI, BMI 36
- Vital Signs / Lab Results
Temp Pulse Resp BP Pulse Ox
98.9 F 65 16 118/65 94
05/04/25 07:12 05/04/25 06:30 05/04/25 06:30 05/03/25 14:17 05/04/25 07:39
Lab Results - Hematology
05/02/25 05/03/25 05/04/25
02:48 04:25 03:13
WBC 21.8 H 25.4 H 21.7 H
Band Neutrophils 11 H
Lab Results - Chemistry
05/01/25 05/01/25 05/02/25
12:18 20:10 02:48
BUN 66 H 66 H 68 H
Creatinine 6.6 H* 5.4 H* 3.9 H
Estimated Creat Clear 20 24 34
Albumin 2.8 L
05/02/25 05/03/25 05/04/25
20:14 04:25 03:13
BUN 55 H 51 H 41 H
Creatinine 2.1 H 1.5 H 0.9
Estimated Creat Clear 63 89 > 125
Albumin
05/01/25
12:18
Lactic Acid 1.9
Microbiology Results
05/03/25 04:25 Blood Culture - Preliminary
Blood/Venous No Growth in 24 hours- Final report to follow
04/30/25 19:46 Blood Culture - Preliminary
Blood/Venous Staph aureus MRSA
Gram Stain - Preliminary
05/02/25 03:16 Blood Culture - Preliminary
Blood/Venous Positive culture in progress
Gram Stain - Preliminary
05/01/25 01:32 Urine Culture - Final
Urine Yeast
05/01/25 17:45 Blood Culture - Preliminary
Blood/Venous Positive culture in progress
Gram Stain - Preliminary
04/30/25 19:46 Blood Culture - Preliminary
Blood/Venous Staph aureus MRSA
Gram Stain - Preliminary
Therapeutic Drug Monitoring
Random Vancomycin 17.8 ug/ml 05/04/25 03:13
[2025-05-04] MEDS: MIRALAX TUBE (08:05)
[2025-05-04] MEDS: TYLENOL ORAL SOLUTION 650 MG TUBE ×4 (08:09→21:29)
--- NOTE | 2025-05-04 08:20 | PTCARENOTE ---
Dr. Callahan aware of increasing oxygen requirements with intermittent FiO2 to .10, with resulting marginal pulse ox of 90%. He has been turned several times this last hour due to large amount of liquid stool. Dr. Callahan increased peep to +8 and increased
FiO2 to .50. He remains tachypneic in the low 30's. Very coarse breath sounds. #8ETT secured 24cm on the left.
[2025-05-04 08:23] VITALS: BP 110/58
[2025-05-04] MEDS: HYDROPHOR 1 APPLIC TOPICAL ×2 (09:11→21:34)
[2025-05-04] MEDS: DESENEX/MITRAZOL/ZEASORB 1 APPLIC TOPICAL ×2 (09:11→20:30)
--- NOTE | 2025-05-04 09:16 | W.PN.ID1 ---
Date of Service
Date of Service: May 04, 2025
Today's Communication
See below
Assessment / Plan
Sustained complicated MRSA bacteremia
Suspect infective endocarditis
Hypoxemic respiratory failure
Fever resolving
Leukocytosis
SINDY
- improving
Anemia
Substance abuse (UDS with fentanyl, amphetamine, methamphetamine, benzodiazepine)
Right second toe infection/gangrene; suspected osteomyelitis
Hx CVA (thalamic bleed) with right hemiplegia
Chronic back pain
Recommendations:
Serial blood cultures to assess ongoing bacteremia (ordered through 05/05/25)
TTE without noted valvular disease.
Recommend JEAN next week.
Patient with in the medial right thigh area. serpiginous rash improving
CT of the right leg - no drainable fluid collection on thigh/leg.
- Moderate suprapatellar joint effusion with areas of loculation.
Consider aspirate joint fluid to assess for septic bursa
Local care to the right second toe with gangrene.
Eventual amputation when medically stable.
Continue vancomycin IV for bacteremia. Follow Vanco levels closely.
Continue empiric meropenem 500 mg IV q.24 hours for toe.
Follow white count and temperature curve.
Continue with supportive measures.
Patient remains critically ill, with VDRF, in intensive care unit.
����������������������������������������������������������
Chief Complaint
-: Clinical Sepsis and Bacteremia
Subjective / Review of Systems
Awake on vent. Still with right thigh and knee pain.
Vital Signs / Physical Exam
Vital Signs
Vital Signs
Temp Pulse Resp BP Pulse Ox
98.9 F 65 16 118/65 87
05/04/25 07:12 05/04/25 06:30 05/04/25 06:30 05/03/25 14:17 05/04/25 08:00
Physical Exam
Constitutional: Acutely Ill and Obese
Eyes: Sclera Anicteric
Cardiovascular: Regular Rate and S1/S2
Pulmonary: Clear (anteriorly) and Other (on vent)
Gastrointestinal: Soft, Non Tender and Non Distended
Genito-Urinary: Cheng
Extremities: Edema (Lymphedema. RLE>LLE) and Venous Insufficiency
Musculoskeletal: Other (Right knee edema, +mild warmth, no erythema)
Skin: Rash (R medial, posterior thigh)
Neurological: Awake and Alert
Objective Data
Lab Data
Lab Results
05/04/25 03:13
05/04/25 03:13
PT 20.0 Sec (11.4-14.6) H 04/30/25 19:46
INR 1.65 04/30/25 19:46
APTT 59.9 Sec (23.4-35.0) H 05/04/25 03:13
Estimated Creat Clear > 125 ml/min 05/04/25 03:13
Lactic Acid 1.9 mmol/L (0.7-2.0) 05/01/25 12:18
Total Bilirubin 1.8 mg/dl (0.2-1.3) H 05/01/25 12:18
AST 38 U/L (17-59) 05/01/25 12:18
ALT 17 U/L (0-50) 05/01/25 12:18
Alkaline Phosphatase 71 U/L (38-126) 05/01/25 12:18
Most recent labs reviewed.
Micro Results:
05/02/25 03:16 Blood Culture - Preliminary
Blood/Venous Staph aureus MRSA
Gram Stain - Preliminary
05/01/25 17:45 Blood Culture - Final
Blood/Venous Staph aureus MRSA
Gram Stain - Final
04/30/25 19:46 Blood Culture - Final
Blood/Venous Staph aureus MRSA
Gram Stain - Final
04/30/25 19:46 Blood Culture - Preliminary
Blood/Venous Staph aureus MRSA
Gram Stain - Preliminary
05/03/25 04:25 Blood Culture - Preliminary
Blood/Venous Positive culture in progress
Gram Stain - Preliminary
05/04/25 03:13 Blood Culture - Pending
Blood/Venous
05/01/25 01:32 Urine Culture - Final
Urine Yeast
05/01/25 01:17 Blood Parasites Smear - Final
Blood/Venous
04/30/25 23:02 Influenza Types A & B (GIORGIO) - Final
Nasal Swab Negative for Influenza A & B, NAAT
Negative results must be combined with clinical observations
and patient history.
Nucleic Acid Amplification test (NAAT)performed on the
[employer] platform.
Imaging:
05/02/25 CT RLE: Subcutaneous stranding within the soft tissues of the anterior right thigh, and [id number] anterior soft tissues. No drainable abscess is appreciated. Moderate suprapatellar joint effusion, with areas of loculation.
05/01/2025 ECHO (TTE): EF 55%. Normal biventricular size and systolic function. No significant valvular disease. No obvious vegetations.
05/01/2025 CXR (portable): bilateral interstitial and airspace disease noted which may reflect pulmonary edema or pneumonia. Small bilateral pleural effusions noted. Please see full dictation for additional detail.
05/01/2025 Abdominal x-ray. Enteric tube noted in stomach.
05/01/2025 Renal ultrasound: unremarkable renal ultrasound without hydronephrosis, contour deforming solid renal mass or echogenic shadowing foci to suggest renal calculi. Bilateral pleural effusions noted.
05/01/2025 Duplex ultrasound lower extremity: no evidence of DVT in the bilateral lower extremities
04/30/2025 X-ray right foot: soft tissue injury versus ulceration involving the second digit with soft tissue swelling. The cortex of the distal phalanx is indistinct and the possibility of osteomyelitis cannot be excluded. There is soft tissue
swelling of the first digit. No radiographic evidence to suggest osteomyelitis. Please see full dictation for additional detail.
[2025-05-04] MEDS: HEPARIN 25000 UNITS/250 ML IV (09:19)
--- NOTE | 2025-05-04 09:54 | PTCARENOTE ---
Clarified with Dr. Mcdaniel if 0800 Blood Cultures were needed. Will discontinue order per Dr. Mcdaniel.
[2025-05-04 09:57] VITALS: BP 93/50
[2025-05-04 10:11] LABS: APTT 48.3 Sec (23.4-35.0)
[2025-05-04] MEDS: LEVOPHED 258 MG IV (10:15)
--- NOTE | 2025-05-04 10:15 | PTCARENOTE ---
Dr. Callahan notified f persistent low MAP 60. Will start Norepinephrine as ordered.
--- NOTE | 2025-05-04 10:26 | W.PN.HOSP.TC ---
Today's Communication/Plan
-
Ventilator support
Aspiration precautions
CT chest PE study
Diuresis
Consider amputation of the toe prior to extubation
May need JEAN next week
Assessment / Plan
Assessment / Plan
'50-year-old man presented to the hospital with right lower extremity after he injured his toes a few days ago. He has also been feeling short of breath and a pressure in his chest. He has lost a friend recently to drugs. This is per ER records.
I spoke to patient's mom as I was not able to reach his or daughter listed as contacts. Per mom after his discharge from here in March he went to the rehab and signed himself out after 2 days. He went to mom's place and lives with her.
Patient's spouse was admitted to the rehab around the same time he was and she still remains in the rehab. Mom states that he goes to [facility] and does not listen to her. He yells at her often. She requests some kind of help to control him.
Requested a psychiatry evaluation to see if he is able to make his decisions or if he needs a guardian from the critical access hospital. She feels helpless about his situation.'
Patient on the ventilator awake and alert able to follow directions
Pupils equal and reactive
Cardiovascular system S1-S2
Chest decreased breath sounds at bases
Abdomen soft and nontender
Bilateral lower extremity edema with skin thickening, dry skin, multiple small areas of skin breaks noted. Right second toe with ulceration, edema and oozing. Decreased pulses felt bilateral dorsalis pedis. Feet are warm to touch. Redness in the
right upper thigh area slightly better, induration noted but no fluctuance. A small blood blister right calf
Facial droop-chronic
Able to squeeze with his hands and follow directions
Venous Dopplers lower extremity-no DVT noted
Echo 05/01/2025-normal biventricular size and systolic function. EF 55 to 60% no vegetation
CT right lower extremity with contrast-subcutaneous stranding within the soft tissues of the anterior thigh and below the knee. No abscess. Moderate suprapatellar joint effusion with areas of loculation. Moderate pelvic free fluid of unknown
etiology. Right inguinal and right iliac chain lymphadenopathy which may be reactive, neoplastic enlargement is not excluded.
Chest x-ray reviewed by me-bilateral infiltrates/edema
LENNY-right LENNY 0.75 and left LENNY 0.83 TBI were obtainable. Doppler waveforms at the ankle bilaterally shows artifacts but remain multiphasic
Renal ultrasound-unremarkable renal ultrasound. Bilateral pleural effusions
# Acute respiratory failure
VDRF
Multifactorial reasons
Possible pneumonia, sepsis, metabolic acidosis. Cannot rule out PE.
Continue heparin drip until PE ruled-CT PE study ordered
On Precedex, fentanyl
Antibiotics meropenem and vancomycin
Ventilator support to be continued today
Increased oxygen requirements overnight on 05-03-25 likely secondary to aspiration/pneumonia.
ECHO as above
# MRSA sepsis present on admission
Septic shock-was on 3 pressors and angiotensin II
Currently off of angiotensin II and pressors
Normal lactic acid level
Cx positive from 04/30, 05/01,05/02
Repeat blood cultures until cleared
Continue vancomycin
Source is likely foot
Will need amputation of the toe-podiatry consulted and following
CT with no abscess
LENNY order placed with decreased pulses
Antibiotics as above
# Acute kidney injury
Patient briefly required CRRT but could not tolerate long
Improving creatinine
He is making urine now
Ultrasound of the kidneys with no obstruction
Urinary diversion with Cheng catheter
Nephrology following
# Anasarca-as needed Lasix
# Metabolic acidosis-likely secondary to renal failure. Better
# Drug abuse urine drug screen positive for fentanyl, , benzos,amphetamines and methamphetamines
Patient was discharged to a rehab last admission however he stayed there only for 2 days and signed himself out
# Multidrug resistant hypertension-currently blood pressure stable without medicines. Watch off of medicines.
Patient was on Coreg, losartan, clonidine, Aldactone as outpatient.
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 Transferred to [facility] . Pt says he was there for 3 months and has weakness of right side and facial droop. Pt appropriately responding.
#Chronic back pain
#Morbid obesity with a BMI of 35- Weight loss recommended
#History of nephrolithiasis
#Possible sleep apnea-needs outpatient study as OP.
#ADHD
#Hepatic steatosis per prior imaging-outpatient follow-up
# Active smoker-cessation counseling when able
# Hypoalbuminemia
# Nutrition-started tube feeds
#DVT prophylaxis-Heparin drip
#Full code
I am not able to reach patient's daughter or . Spoke to mom. Mom stated that she will keep daughter updated. is in the rehab. Updated mother about persistent blood cultures possibility of JEAN, increasing oxygen requirements and CT chest
and may need surgery for the toe. Patient's answered. She was very appreciative of the phone calls.
Patient's allergy to IV contrast was nausea and vomiting. He did not receive any contrast prep day before yesterday for the CT lower extremity, tolerated well.
Part of this note was created using voice recognition system. Occasional wrong word or��sound alike� substitutions may have inadvertently occurred due to the inherent limitations of voice recognition software. If noted kindly bring it to my
attention for correction.
Total Critical Care Time 39 minutes. I was immediately available to the patient and staff. I personally examined, reviewed labs, diagnostic images/reports, interpretations, treatment plans, discussed patient care with other providers and family
, entered orders as appropriate and documented the medical record.
Anticipated Discharge: > 48 hours
Subjective/Interval History
-
Date of Service: May 04, 2025
Objective Data
-
Labs:
Laboratory Results
05/04/25 05/04/25
03:13 09:45
WBC 21.7 H
Hgb 10.9 L
Hct 32.0 L
Plt Count 345
APTT 59.9 H 48.3 H
HCO3 24.5
Sodium 145
Potassium 3.4 L
Chloride 117 H
Carbon Dioxide 24
BUN 41 H
Creatinine 0.9
Glucose 146 H
Calcium 8.5
Vital Signs:
Vital Signs
Temp Pulse Resp BP Pulse Ox
98.9 F 70 32 93/50 93
05/04/25 07:12 05/04/25 10:00 05/04/25 10:00 05/04/25 09:57 05/04/25 10:00
I&O
05/03/25 05/04/25 05/05/25
06:59 06:59 06:59
Intake Total 2809.0 / 2885.9 2822.23 / 2959.73 660.0 / 660.0
Output Total 2485 / 2620 3315 / 3415 735 / 735
Balance 324.0 / 265.9 -492.77 / -455.27 -75.0 / -75.0
--- NOTE | 2025-05-04 10:45 | PTCARENOTE ---
Dr. Mcdaniel notified that it was recommended to keep the Trialysis catheter in place if daily blood cultures are still positive, per IV team CHAYA Dozier.
[2025-05-04] MEDS: SUBLIMAZE 100 IV (11:08)
[2025-05-04] MEDS: VANCOCIN 200 IV (11:09)
--- NOTE | 2025-05-04 11:27 | W.PN.NEPH.PH ---
Today's Communication / Plan
-
bumex later today
Assessment/Plan
-
IMP:
Acute kidney injury
Septic shock
Cellulitis left lower extremity
Opiate abuse with withdrawal
Microscopic hematuria, Albuminuria noted in the urine
History of CVA-left thalamus measuring at least 2.5 cm bleed 01/07/24. ventricular shunt
Leukocytosis- elevated since 2008 labs
Chronic back pain
Morbid obesity with a BMI of 39
History of nephrolithiasis
Possible sleep apnea-needs outpatient study asleep
ADHD
Hepatic steatosis per prior imaging
Active smoker
Plan:
cr normalized
wt is increasing, responded well to bumex, likely redose later
Bp soft with out pressors
ok to remove CVC HD catheter when able
replace k
severe vit D def-starts D2
remains on intubated
plan to get CTA chest today to r/o PE
d/w nursing
CC time spent 31min
-
-
Date of Service: May 04, 2025
CC / HPI / ROS
-
Chief Complaint:
Acute kidney injury septic shock drug abuse
History of Present Illness:
cr improving to 0.9
Bp stable, soft off pressors
calcium better at 8.5, k low 3.4
BNP 1800
Review of Systems:.
Intubated, Fio2 50%, PEEP8
Nonoliguric with haney
Labs
-
Labs:
WBC 21.7 10^3/uL (4.8-10.8) H 05/04/25 03:13
RBC 3.96 10^6/uL (4.70-6.10) L 05/04/25 03:13
Hgb 10.9 g/dL (13.0-18.0) L 05/04/25 03:13
Hct 32.0 % (39.0-52.0) L 05/04/25 03:13
Plt Count 345 10^3/uL (130-400) 05/04/25 03:13
Sodium 145 mmol/L (135-145) 05/04/25 03:13
Potassium 3.4 mmol/L (3.5-5.1) L 05/04/25 03:13
Chloride 117 mmol/L (98-107) H 05/04/25 03:13
Carbon Dioxide 24 mmol/L (22-30) 05/04/25 03:13
BUN 41 mg/dl (9-20) H 05/04/25 03:13
Creatinine 0.9 mg/dL (0.7-1.3) 05/04/25 03:13
eGFR > 60.00 05/04/25 03:13
Glucose 146 mg/dl (70-99) H 05/04/25 03:13
Calcium 8.5 mg/dl (8.4-10.2) 05/04/25 03:13
Phosphorus 3.2 mg/dl (2.5-4.5) 05/03/25 04:25
Ebb-U-Vddeoqnokwn Pept 1800 pg/ml 05/04/25 03:13
Albumin 2.8 g/dl (3.5-5.0) L 05/01/25 12:18
Physical Exam
-
Vital Signs:
Vital Signs
Temp Pulse Resp BP Pulse Ox
98.9 F 70 32 93/50 93
05/04/25 07:12 05/04/25 10:00 05/04/25 10:00 05/04/25 09:57 05/04/25 10:00
Cardiovascular:: Regular rate and rhythm
Respiratory:: Bilateral: Coarse
Lung Excursion:: Abnormal
Abdomen:: Nontender and Soft
Extremity Edema:: +2: Bilateral:
Haney Catheter: Yes
[2025-05-04] MEDS: SUBLIMAZE 50 MCG IV ×5 (11:33→23:47)
[2025-05-04 11:45] LABS: Glucose - Point of Care 145 mg/dl (70-99)
--- NOTE | 2025-05-04 11:45 | PTCARENOTE ---
Pt to ct scan with rn, PCT, PIN ATTACHER vented with drips. He was given fentanyl bolus prior to transport. He tolerated it well. TF resumed upon return to the room.
[2025-05-04] MEDS: ZANAFLEX 2 MG TUBE ×3 (12:29→23:47)
--- NOTE | 2025-05-04 12:46 | W.PN.UPDATE ---
Update Note
Progress Note Update
NO PE.
Will DC heparin gtt
Add Lovenox for DVT Prophylaxis
[2025-05-04] MEDS: BUMEX 0.5 MG IV (14:06)
--- NOTE | 2025-05-04 15:12 | PTCARENOTE ---
Aggitation. Fentanyl bolus administered and drip adjusted. Precedex also titrated. He was provided supportive care.
[2025-05-04] MEDS: DRISDOL 50000 UNITS TUBE (16:50)
[2025-05-04 17:23] LABS: Glucose - Point of Care 152 mg/dl (70-99)
[2025-05-04] MEDS: LOVENOX 40 MG SC (17:31)
[2025-05-04] MEDS: NOVOLOG FLEXPEN-LOW RESISTANCE 1 UNITS SC (18:10)
[2025-05-04 20:00] VITALS: BP 125/65
--- NOTE | 2025-05-04 20:25 | PTCARENOTE ---
Rec'd pt with wrists restrained for pt safety, awake, follows commands, R side weak ( previous CVA), FRANCISCO 2mm, sluggish, fent 50mic iv given for cpot, fent gtt at 50mic, precedex gtt at 1.1 megan; pt anxious, SR, left rad ekta w/ good wave form,
flushes well, accurate to cuff, goal MAP > 65 w/ lev- see flow sheet for titrations, Double conc levo at 5 megan, distal pulses via doppler, leg dsgs changged, jess wraps applied, + edema, #8 oral ett- 25 cm moved to R side, ac 16, tv 500, 8 peep, 50%
fio2, lungs coarse rhonchi, decr in bases, suct for lg amt blood tinged sputum, sat 92, hypo bowel sounds,no bm, abd soft/ obese, left nares dobhof- nepro at 70ml/hr & 15ml/hr h20 flush, no n/v, thermister haney draining she urine
[2025-05-04 20:34] VITALS: BP 125/65
--- NOTE | 2025-05-04 21:30 | PTCARENOTE ---
ativan 0.5 mg via tube given for anx, tylenol 650 mg via tube for temp
[2025-05-05] VITALS (32 sets, daily range): BP systolic 105–168; BP diastolic 52–98; BMI 36.9
--- NOTE | 2025-05-05 | PTCARENOTE ---
sys reviewed, xanaflex 2mg via tube given for restless ness, banging on side rails, fent 50mic bolus given before care, CHG bath done, linens changed, when changing alinetubing, leaking at site & cath intermediate out- dc'd
[2025-05-05 00:01] LABS: Glucose - Point of Care 149 mg/dl (70-99)
--- NOTE | 2025-05-05 02:00 | PTCARENOTE ---
ativan 0.5 mg via tube for anx
[2025-05-05] MEDS: MERREM 500 MG IV ×3 (02:02→14:24)
[2025-05-05] MEDS: STERILE WATER FOR INJECTION 10 ML IV ×3 (02:02→14:24)
[2025-05-05] MEDS: ATIVAN 0.5 MG TUBE ×2 (02:04→06:02)
[2025-05-05] MEDS: PRECEDEX 100 IV ×4 (02:38→11:15)
[2025-05-05] MEDS: SUBLIMAZE 50 MCG IV ×2 (03:41→04:39)
[2025-05-05 03:48] LABS: Hematocrit 31.9 % (39.0-52.0); Hemoglobin 10.5 g/dL (13.0-18.0); Mean Corp Hgb Conc. 32.9 g/dL (33.0-37.0); Mean Corpuscular Volume 82.0 fL (80.0-94.0); Platelet Count 356 10^3/uL (130-400); Red Cell Dist. Width 16.9 % (11.5-14.5)
--- NOTE | 2025-05-05 03:51 | PTCARENOTE ---
sys reviewed, 50 megan fent iv given before turning & repos of ett;ett repos on left side
[2025-05-05 04:10] LABS: Blood Urea Nitrogen 30 mg/dl (9-20); Calcium 8.5 mg/dl (8.4-10.2); Carbon Dioxide 28 mmol/L (22-30); Chloride 116 mmol/L (98-107); Estimated Creatinine Clearance > 125 ml/min; Glucose 148 mg/dl (70-99); Magnesium 1.7 mg/dl (1.6-2.3); Potassium 3.3 mmol/L (3.5-5.1); Sodium 148 mmol/L (135-145); eGFR > 60.00
--- NOTE | 2025-05-05 04:41 | PTCARENOTE ---
levo off, fent 50mic iv given for cpot 6, attempting to pull at ett
[2025-05-05] MEDS: NOVOLOG FLEXPEN-LOW RESISTANCE 1 UNITS SC (05:15)
[2025-05-05] MEDS: MAGNESIUM SULFATE 102 GRAMS IV (05:16)
[2025-05-05] MEDS: KCL ELIXIR 40 MEQ TUBE (05:16)
--- NOTE | 2025-05-05 05:17 | PTCARENOTE ---
40 kcl via tube, 1 gm mag sulfate iv over 1hr hung per order
[2025-05-05 05:25] LABS: Glucose - Point of Care 152 mg/dl (70-99)
[2025-05-05] MEDS: SUBLIMAZE 100 IV (06:02)
[2025-05-05] MEDS: ZANAFLEX 2 MG TUBE ×2 (06:02→14:24)
--- NOTE | 2025-05-05 06:08 | PTCARENOTE ---
zanaflex 2mg & ativan 0.5 mg via tube for agitation/ anx
[2025-05-05] MEDS: NSS (PRESERVATIVE FREE) 10 ML IV (08:10)
[2025-05-05] MEDS: MYCOSTATIN ORAL SUSPENSION 5 ML PO ×4 (08:10→21:22)
[2025-05-05] MEDS: PROTONIX IV 40 MG IV (08:10)
[2025-05-05] MEDS: HYDROPHOR 1 APPLIC TOPICAL (08:11)
[2025-05-05] MEDS: DESENEX/MITRAZOL/ZEASORB 1 APPLIC TOPICAL ×2 (08:11→21:21)
[2025-05-05] MEDS: MIRALAX TUBE (08:12)
[2025-05-05] MEDS: TYLENOL ORAL SOLUTION 650 MG TUBE (08:28)
--- NOTE | 2025-05-05 09:30 | PTCARENOTE ---
Rec'd care of patient at 0700. Patient alert. Pupils equal and reactive. Sluggish, +2mm. Nods head appropriately and follows commands. MAEx4; trace movement in RLE. Anxious at times. Precedex and Fentanyl gtts infusing through HD pigtail. NSR on
tele. #8.0 ett, positioned @ 25cm. Vent settings A/C 16/500/8/50%. Lung sounds coarse throughout. Harsh, moist cough present. Thick, caicedo/pink secretions suctioned from ett. +BS. TFs running at goal through DHT. Incontinent of a large amount of
liquid brown bm; rectal trumpet placed. Cheng in place for critical I/O. Jacki output. B/l LE and right second toe dressings c/d/i. See worklist for full assessment and care.
[2025-05-05] MEDS: VANCOCIN 275 MG IV ×2 (09:33→17:17)
--- NOTE | 2025-05-05 09:51 | PHA.VAN.FU ---
Addendum entered and electronically signed by Lalita Syed RPH 05/05/25 10:02:
Agree with resident's assessment and plan below. Will trial more scheduled BID dosing and follow level trend with unstable renal function.
Original Note:
Vancomycin Assessment / Plan
- Assessment
Renal Function: Stable
WBC's are: Trending Up
In the past 24 hrs, patient has been: Febrile
Concomitant Antimicrobials: meropenem
- Assessment - Therapeutic Drug Monitoring
Random Level: 9.1 - drawn ~16.5H after 1000mg dose
- Dosing Plan
Dosing by Level: Re-dose today (give 1250mg x2 doses, one this morning and one at 1800)
- Monitoring Plan
Random Level: 05/06 06
- Follow Up
Pharmacy will continue to follow.
Vancomycin Follow UP
- -
Patient Age: 50
Patient Sex: Male
Vancomycin Day #: 5
Indication: Bacteremia
Requesting Provider: Dr. Hoskins/Dr. Amador
Pertinent Antimicrobial Allergies:
clindamycin - reaction unknown
penicillins - shortness of breath; tolerated cefepime
trimethoprim/sulfamethoxazole - reaction unknown
Height / Weight:
Height 6 ft 3 in
Actual Weight 133.9 kg
Pertinent Past Medical History: IV NATI, BMI 36
- Vital Signs / Lab Results
Temp Pulse Resp BP Pulse Ox
100.7 F H 90 33 137/75 96
05/05/25 07:50 05/05/25 09:30 05/05/25 09:30 05/05/25 09:30 05/05/25 09:30
Lab Results - Hematology
05/03/25 05/04/25 05/05/25
04: 03:13 03:29
WBC 25.4 H 21.7 H 25.7 H
Lab Results - Chemistry
05/02/25 05/03/25 05/04/25
20:14 04:25 03:13
BUN 55 H 51 H 41 H
Creatinine 2.1 H 1.5 H 0.9
Estimated Creat Clear 63 89 > 125
05/05/25
03:29
BUN 30 H
Creatinine 0.8
Estimated Creat Clear > 125
Microbiology Results
05/04/25 03:13 Blood Culture - Preliminary
Blood/Venous No Growth in 24 hours- Final report to follow
05/04/25 09:25 Gram Stain - Preliminary
Endotracheal
05/02/25 03:16 Blood Culture - Preliminary
Blood/Venous Staph aureus MRSA
Gram Stain - Preliminary
05/01/25 17:45 Blood Culture - Final
Blood/Venous Staph aureus MRSA
Gram Stain - Final
04/30/25 19:46 Blood Culture - Final
Blood/Venous Staph aureus MRSA
Gram Stain - Final
04/30/25 19:46 Blood Culture - Preliminary
Blood/Venous Staph aureus MRSA
Gram Stain - Preliminary
05/03/25 04:25 Blood Culture - Preliminary
Blood/Venous Positive culture in progress
Gram Stain - Preliminary
05/01/25 01:32 Urine Culture - Final
Urine Yeast
Therapeutic Drug Monitoring
Random Vancomycin 9.1 ug/ml 05/05/25 03:29
--- NOTE | 2025-05-05 10:03 | W.PN.HOSP.TC ---
Today's Communication/Plan
-
Cardiology evaluation for a JEAN
Needs amputation of the toe
Follow blood cultures
Continue antibiotics
May need to plan ventilator weaning per surgery/JEAN
Assessment / Plan
Assessment / Plan
'50-year-old man presented to the hospital with right lower extremity after he injured his toes a few days ago. He has also been feeling short of breath and a pressure in his chest. He has lost a friend recently to drugs. This is per ER records.
I spoke to patient's mom as I was not able to reach his or daughter listed as contacts. Per mom after his discharge from here in March he went to the rehab and signed himself out after 2 days. He went to mom's place and lives with her.
Patient's spouse was admitted to the rehab around the same time he was and she still remains in the rehab. Mom states that he goes to [place] and does not listen to her. He yells at her often. She requests some kind of help to control him.
Requested a psychiatry evaluation to see if he is able to make his decisions or if he needs a guardian from the [facility]. She feels helpless about his situation.'
Patient on the ventilator awake and alert able to follow directions
Pupils equal and reactive
Cardiovascular system S1-S2
Chest decreased breath sounds at bases
Abdomen soft and nontender
Bilateral lower extremity edema with skin thickening, dry skin, multiple small areas of skin breaks noted. Right second toe with ulceration, edema and oozing. Decreased pulses felt bilateral dorsalis pedis. Feet are warm to touch. Redness in the
right upper thigh area slightly better, induration noted but no fluctuance. A small blood blister right calf
right Facial droop-chronic
Able to squeeze with his hands and follow directions
Venous Dopplers lower extremity-no DVT noted
Echo 05/01/2025-normal biventricular size and systolic function. EF 55 to 60% no vegetation
CT right lower extremity with contrast-subcutaneous stranding within the soft tissues of the anterior thigh and below the knee. No abscess. Moderate suprapatellar joint effusion with areas of loculation. Moderate pelvic free fluid of unknown
etiology. Right inguinal and right iliac chain lymphadenopathy which may be reactive, neoplastic enlargement is not excluded.
Chest x-ray reviewed by me-bilateral infiltrates/edema
LENNY-right LENNY 0.75 and left LENNY 0.83 TBI were obtainable. Doppler waveforms at the ankle bilaterally shows artifacts but remain multiphasic
Renal ultrasound-unremarkable renal ultrasound. Bilateral pleural effusions
CT PE study-no evidence of central PE. Extensive bilateral cavitary nodular opacities compatible with bilateral cavitary pneumonia likely based on septic emboli. Small to moderate bilateral pleural effusions. Gynecomastia. Small amount of
ascites in the right upper quadrant adjacent to the liver.
# Acute respiratory failure
VDRF
Multifactorial reasons
Possible pneumonia, sepsis, metabolic acidosis, septic emboli
No PE on PE study from 05/04/2025 ( revieed by me)
On Precedex, fentanyl
Antibiotics meropenem and vancomycin
Ventilator support to be continued today
ECHO as above
# MRSA sepsis present on admission
Septic shock-was on 3 pressors and angiotensin II
Currently off of angiotensin II and pressors
Normal lactic acid level
Cx positive from 04/30, 05/01,05/02, 05/03. Cultures from 05/04 negative so far
Continue vancomycin
Source is likely foot
Will need amputation of the toe-podiatry consulted and following
CT with no abscess
LENNY as above
Needs JEAN
# Acute kidney injury
Patient briefly required CRRT but could not tolerate long
Creatinine improved
Ultrasound of the kidneys with no obstruction
Urinary diversion with Cheng catheter
Nephrology following
# Anasarca-as needed Lasix
# Metabolic acidosis-likely secondary to renal failure. Better
# Drug abuse urine drug screen positive for Fentanyl, Benzos, Amphetamines and Methamphetamines
Patient was discharged to a rehab last admission however he stayed there only for 2 days and signed himself out
# Multidrug resistant hypertension-currently blood pressure stable without medicines. Watch off of medicines.
Patient was on Coreg, losartan, clonidine, Aldactone as outpatient.
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 Transferred to [facility] . Pt says he was there for 3 months and has weakness of right side and facial droop. Pt appropriately responding.
#Chronic back pain
#Morbid obesity with a BMI of 35- Weight loss recommended
#History of nephrolithiasis
#Possible sleep apnea-needs outpatient study as OP.
#ADHD
#Hepatic steatosis per prior imaging-outpatient follow-up
# Active smoker-cessation counseling when able
# Hypoalbuminemia
# Nutrition-started tube feeds
#DVT prophylaxis-Lovenox
#Full code
Discussed with podiatry regarding timing for amputation. Will also consult cardiology for JEAN.
Spoke to patient's mother and updated. Mother states that his Saritha is still in rehab. Any is not patient's biological daughter that his stepdaughter.
Mother was updated that patient is still very sick with positive blood cultures and may need amputation. Plan discussed. she asked how his behavior was and wanted me to be 'safe around him'. She stated that she found street drugs in his room
after he went to [place] before this admission.
Total Critical Care Time 32 minutes. I was immediately available to the patient and staff. I personally examined, reviewed labs, diagnostic images/reports, interpretations, treatment plans, discussed patient care with other providers and family
, entered orders as appropriate and documented the medical record.
Anticipated Discharge: > 48 hours
Subjective/Interval History
-
Date of Service: May 05, 2025
Objective Data
-
Labs:
Laboratory Results
05/05/25
03:29
WBC 25.7 H
Hgb 10.5 L
Hct 31.9 L
Plt Count 356
Sodium 148 H
Potassium 3.3 L
Chloride 116 H
Carbon Dioxide 28
BUN 30 H
Creatinine 0.8
Glucose 148 H
Calcium 8.5
Vital Signs:
Vital Signs
Temp Pulse Resp BP Pulse Ox
100.7 F H 90 33 137/75 96
05/05/25 07:50 05/05/25 09:30 05/05/25 09:30 05/05/25 09:30 05/05/25 09:30
I&O
05/04/25 05/05/25 05/06/25
06:59 06:59 06:59
Intake Total 2822.23 / 2959.73 3750.9 / 3983.4 853.5 / 853.5
Output Total 3315 / 3415 2845 / 2950 275 / 275
Balance -492.77 / -455.27 905.9 / 1033.4 578.5 / 578.5
--- NOTE | 2025-05-05 10:28 | CON.CAR ---
Addendum entered and electronically signed by Yrn Winn MD 05/05/25 17:16:
I saw and examined the patient independently.
The ARCHERY INSTRUCTOR's note was reviewed and I agree with the note with changes/additions as noted below.
Comment:
50 yo male with polysubstance abuse, prior CVA admitted with septic shock, MRSA bacteremia due to gangrenous toe wound. He self extubated this AM. He has no cardiac complaints. Exam with RRR, no murmurs, no edema. TTE: normal LVEF, no vegetation.
Tele: SR 80s.
# MRSA bacteremia
-ID recs JEAN to assess for bacteremia
-initially patient declined, but at time of my exam, he was agreeable
-plan will be JEAN when stable: will assess tomorrow AM
# Septic shock
-weaning pressors
Original Note:
Consultation
Consultation Request
Date/Time Consultation Requested: 05/05/2025 10:15
Date/Time Consultation Performed: 05/05/2025 10:30
Requesting Provider: Dr. Hoskins
Performing Provider: TORRES Pollard for Dr. Winn
Reason for Consultation: MRSA bacteremia
Medical History
-
Chief Complaint: Shortness of breath
History of Present Illness:
Patrice Mera is a 50-year-old male with a past medical history significant for opioid use disorder, CVA (right hemiplegia), and hypertension who presented to the ER 04/30/2025 with a chief complaint of shortness of breath. He also endorsed chest
pain and right second toe pain. He reported he banged his foot resulting in current injury. He presented with an SINDY with anion gap metabolic acidosis and hypoxemic respiratory failure. On the day following admission he had a nontunneled right IJ
HD catheter placed. Later that day he was intubated and and a line was placed. He was requiring Levophed, vasopressin, and epinephrine at that time. CRRT was paused due to profound hypotension. He was found to have MRSA bacteremia for which
cardiology has been consulted. Patient self extubated just prior to this consultation.
He had a recent admission 02/20/2025 - 03/06/2025 with opioid withdrawal, hypertensive urgency, and right lower extremity cellulitis. He required intensive care for nicardipine drip and opioid withdrawal protocol for Subutex.
Past Medical History
Past Medical History: HTN and Psychiatric (Opioid abuse, ADHD)
Social History
Tobacco: Former Smoker
Drug: Former User
Personal:
Family History
Family History: Unable to Obtain
Allergies / Home Medications
Allergy/AdvReac Type Severity Reaction Status Date / Time
Iodinated Contrast Media Allergy Unknown Nausea / Unverified 05/02/25 13:42
Vomiting
clindamycin Allergy Unknown Verified 04/30/25 16:59
Corticosteroids Allergy Unknown Verified 04/30/25 16:59
(Glucocorticoids)
diphenhydramine HCl (From Allergy Unknown Verified 04/30/25 16:59
Benadryl)
hydrocodone bitartrate (From Allergy vomiting Verified 04/30/25 22:45
Vicodin)
hydroxyzine (Hydroxyzine) Allergy Unknown Verified 04/30/25 16:59
peach Allergy Tongue Verified 04/30/25 16:59
Swelling
Penicillins Allergy Shortness Verified 04/30/25 16:59
of Breath;
tolerated
cefepime
sulfamethoxazole (From Allergy Unknown Verified 04/30/25 16:59
Bactrim)
tramadol Allergy 'throat Verified 04/30/25 16:59
swells up'
trimethoprim (From Bactrim) Allergy Unknown Verified 04/30/25 16:59
�Medication �Instructions �Recorded �Confirmed �Type
acetaminophen 500 mg tablet 1,000 mg (2 x 500 mg) PO Q8 PRN 03/06/25 04/30/25 Rx
(Tylenol Extra Strength) mild pain #0 tabs
carvedilol 25 mg tablet 25 mg PO BID Blood pressure #0 tabs 03/06/25 04/30/25 Rx
losartan 50 mg tablet 100 mg (2 x 50 mg) PO DAILY Blood 03/06/25 04/30/25 Rx
pressure #0 tabs
pantoprazole 40 mg tablet,delayed 40 mg PO DAILY Gastrointestinal 03/06/25 04/30/25 Rx
release (Protonix) issue #30 tabs
spironolactone 50 mg tablet 50 mg PO DAILY Blood pressure #0 03/06/25 04/30/25 Rx
tabs
clonidine HCl 0.1 mg tablet 0.1 mg PO DAILY Blood pressure 04/30/25 04/30/25 History
Review of Systems
-
History Source: Patient
All other systems: Negative unless noted
Constitutional: Fatigue
EENT: No Symptoms
Respiratory: Cough
Cardiac: No Symptoms
Abdomen/GI: No Symptoms
: No Symptoms
Musculoskeletal: No Symptoms
Skin: No Symptoms
Neurological: No Symptoms
Endocrine: No Symptoms
Hematologic/Lymphatic: No Symptoms
Physical Exam
Vital Signs
Temp Pulse Resp BP Pulse Ox
100.7 F H 82 26 134/66 94
05/05/25 07:50 05/05/25 10:00 05/05/25 10:00 05/05/25 10:00 05/05/25 10:00
Lab Results
05/05/25 03:29
05/05/25 03:29
Troponin I Cancelled 05/01/25 12:49
Sqe-Z-Mmloaqydytu Pept 1800 pg/ml 05/04/25 03:13
Physical Exam
General: Well Developed, Well Nourished, No Apparent Distress and Comfortable
HEENT: Normocephalic, Anicteric and Moist Mucous Membranes
Respiratory: Rhonchi and Non Labored Respirations
Cardiac: S1/S2, Regular Rhythm and Peripheral Edema
Breast: Deferred by me
GI: Soft, Non Tender, Non Distended and Normal Bowel Sounds
Rectal: Deferred by Provider
Genito-urinary: No Costovertebral Tender
Musculoskeletal: No Clubbing and No Cyanosis
Skin: Warm and Dry
Neuro: Awake and Alert
Hematologic/Lymphatic: No Lymphadenopathy
Psych: Calm
Impression / Plan
-
I/P: 50M with opioid use disorder, CVA (right hemiplegia), and hypertension who presented to the ER 04/30/2025 with a chief complaint of shortness of breath. Cardiology consult for MRSA bacteremia.
Outpatient egg producer: Unknown
Sepsis, MRSA bacteremia
- Improving, was on 3 pressors and angiotensin II, currently off
- Source is believed to be foot, will require amputation, podiatry following
- Blood culture 05/03/2025 preliminarily positive
- TTE without vegetation
- He is not interested in JEAN, would like toe amputation and discharge 'NOREEN'
Acute hypoxic respiratory failure
- Self extubated 05/05/2025
- No PE on CT
- Significant lung disease per pulmonary, making weaning impaired
Gangrenous right second toe with exposed bone, podiatry following
SINDY, resolved
- Was briefly on CRRT
- Renal ultrasound unremarkable nephrology following
Multidrug-resistant hypertension
- BP currently stable without antihypertensive agents
Opioid abuse
- UDS positive for fentanyl, benzodiazepines, amphetamines, and methamphetamines at admission
- He signed himself out of rehab
Prior CVA, left thalamic bleed with right hemiaplasia
Obesity, BMI 36.9, he would benefit from weight loss
Current smoker, full cessation recommended
Data Reviewed
-
EKG: Report Reviewed by me
Radiology: Report Reviewed by me
Labs: Labs Reviewed by me
Old Records: Reviewed
--- NOTE | 2025-05-05 10:54 | W.PN.NEPH.PH ---
Today's Communication / Plan
-
see plan
Assessment/Plan
-
IMP:
Acute kidney injury
Septic shock
Cellulitis left lower extremity
Opiate abuse with withdrawal
Microscopic hematuria, Albuminuria noted in the urine
History of CVA-left thalamus measuring at least 2.5 cm bleed 01/07/24. ventricular shunt
Leukocytosis- elevated since 2008 labs
Chronic back pain
Morbid obesity with a BMI of 39
History of nephrolithiasis
Possible sleep apnea-needs outpatient study asleep
ADHD
Hepatic steatosis per prior imaging
Active smoker
Plan:
SINDY-resolved
VDRF per pulm, PEEP better today
wt is higher than admit , BNP high
CT chest noted, PNA-septic emboli, likely need JEAN
evolving hypernatremia-will hold Bumex today
increasing FWF 30cc/hr in TF
replace k
Bps table off pressors
abx per ID, remains febrile, pending repeat bld cx
ok to remove CVC HD catheter when able
severe vit D def-started D2
CC time spent 31min
-
-
Date of Service: May 05, 2025
CC / HPI / ROS
-
Chief Complaint:
Acute kidney injury septic shock drug abuse
History of Present Illness:
cr improving to 0.8
Bp stable, off pressors
calcium stable at 8.5, k low 3.3, sodium up at 148
febrile, WBC high at 25.7k
wt slightly down
Review of Systems:.
Intubated, Fio2 50%, PEEP5 better
Nonoliguric with haney
Labs
-
Labs:
WBC 25.7 10^3/uL (4.8-10.8) H 05/05/25 03:29
RBC 3.89 10^6/uL (4.70-6.10) L 05/05/25 03:29
Hgb 10.5 g/dL (13.0-18.0) L 05/05/25 03:29
Hct 31.9 % (39.0-52.0) L 05/05/25 03:29
Plt Count 356 10^3/uL (130-400) 05/05/25 03:29
Sodium 148 mmol/L (135-145) H 05/05/25 03:29
Potassium 3.3 mmol/L (3.5-5.1) L 05/05/25 03:29
Chloride 116 mmol/L (98-107) H 05/05/25 03:29
Carbon Dioxide 28 mmol/L (22-30) 05/05/25 03:29
BUN 30 mg/dl (9-20) H 05/05/25 03:29
Creatinine 0.8 mg/dL (0.7-1.3) 05/05/25 03:29
eGFR > 60.00 05/05/25 03:29
Glucose 148 mg/dl (70-99) H 05/05/25 03:29
Calcium 8.5 mg/dl (8.4-10.2) 05/05/25 03:29
Phosphorus 3.2 mg/dl (2.5-4.5) 05/03/25 04:25
Evs-I-Tdgpyfojkzg Pept 1800 pg/ml 05/04/25 03:13
Albumin 2.8 g/dl (3.5-5.0) L 05/01/25 12:18
Physical Exam
-
Vital Signs:
Vital Signs
Temp Pulse Resp BP Pulse Ox
100.7 F H 82 26 134/66 94
05/05/25 07:50 05/05/25 10:00 05/05/25 10:00 05/05/25 10:00 05/05/25 10:00
Cardiovascular:: Regular rate and rhythm
Respiratory:: Bilateral: Coarse
Lung Excursion:: Abnormal
Abdomen:: Nontender and Soft
Extremity Edema:: +2: Bilateral:
Haney Catheter: Yes
--- NOTE | 2025-05-05 11:11 | W.PN.INTV ---
Today's Communication / Plan
Recommendations
Patient self extubated-oxygen supplementation to maintain pulse ox above 90%
Discontinue sedatives
High risk for reintubation
Eventual JEAN
Follow daily blood culture
Continue antibiotic
Keep Dobbhoff tube for now-NPO.
Discontinue fentanyl
Discontinue Precedex
Eventual speech evaluation
Prognosis is guarded
Patient has expressed that he would not want reintubation.
Assessment
-
Patient is a 50-year-old male with previous history of opiate use disorder, left thalamic intracranial hemorrhage, presenting to ER with complaints of chest pain, shortness of breath and right toe pain. He arrived in the ER in apparent
respiratory distress with increased work of breathing. He was tried on BiPAP but could not tolerate it. He was admitted here recently in January for opiate use disorder and withdrawal symptoms. UDS is positive for fentanyl, amphetamines,
benzodiazepines. Chest x-ray demonstrating mild left lower lobe pneumonia, he is on HFNC (PAO2 on ABG 73). Admitted to ICU for hypoxemia.
Profound septic shock on 4 pressors: levo, vaso, epi, giapreza--improved now off pressors
Suspect acute opiate w/d
UDS +Fent
LLL PNA
Acute hypoxic respiratory failure on high flow nasal cannula-->intubation 05/01
Metabolic acidosis
Acute kidney injury, creatinine 6.9
Leukocytosis
GP bacteremia
Tick bite
Possible skin infection/cellulitis
Conditions present CALIBRATION CHECKER
Cellulitis left lower extremity
Hypertensive urgency
Opiate abuse with withdrawal
Microscopic hematuria, Albuminuria noted in the urine
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
Leukocytosis- elevated since 2008 labs
Chronic back pain
Morbid obesity with a BMI of 39
History of nephrolithiasis
Possible sleep apnea-needs outpatient study asleep
ADHD
Hepatic steatosis per prior imaging
Active smoker
Plan:
Critically ill:
Mental status improved. Following commands.
Remains on Precedex-will attempt to wean off.
Wean off fentanyl.
Psychiatric history noted above including IVDU, ADHD history
UDS + multidrug use, CVA history
-
Septic shock resolved:
Hemodynamically stable, initially requiring pressors: levo, vaso, epi, giap--not completely off pressors x 72 hours
Echocardiogram with normal LVEF. No appreciable vegetations. No significant valvular abnormalities.
Monitor on telemetry
-
Respiratory failure:
Oxygen needs: on HFNC --> BIPAP, not improving --> intubated 05/01
Vent setting reviewed: AC 500/20/5+ - Repeat ABG adequate on these settings
Prior history of lung disease: likely has FRANKO not diagnosed
Supplemental O2 as indicated to maintain sats > 89%
CT chest: Reviewed with bilateral significant cavitating infiltrates likely septic emboli.
-
Attempted spontaneous breathing trial, patient self extubated 05/05/2025.
Continue oxygen supplementation
He wishes not to get reintubated.
Discontinue sedation
-
NPO.
DHT --> Started on TFs 05/03
Aspiration precautions, HOB > 30 degrees
Speech therapy eval later today per
GI prophylaxis if indicated for mechanical ventilation >48 hours, prior history of GERD, stress ulcer formation in the critically ill
SINDY --creatinine back to normal.
Hypernatremia noted-hold diuretics. Increase water flushes 05/05/2025.
Renal consult, planning for HD, could not tolerate CRRT --discontinued 05/01
Cheng urinary output-Cheng in place
Hold Bumex for today due to hypernatremia
Endocarditis-MRSA positive.
Echocardiogram noted: No vegetations
Cardiology consulted for JEAN.
Vancomycin ongoing
Last blood culture + 05/03/2025.
Respiratory culture also with Staph aureus.
Repeat daily blood cultures per
CT Thigh w/ IV contrast--no evidence of skin infection/skin lesions improving past 48 hours
Eventual toe amputation per podiatry-later this week.
Tick noted, serology negative
ID Following
CBC stable, no signs of bleeding or coagulopathy.
DVT prophylaxis as assessed based on risk, including mechanical SCDs
Can transfuse if indicated for Hb <7, plt < 10
INR WNL
Diarrhea: 05/05/2025 if persistent will need to check C. difficile.
Already on contact precautions
Prognosis is guarded

Diagnostic Data
Chest X-Ray: 04/30/25- Mild left lower lobe pneumonia. Trace bilateral pleural effusions.
CT Scan: CT head 01/2025: There is a ventricular shunt present which enters from the right superior frontal region, with tip of the shunt to the junction of the inferior frontal horn of the right lateral ventricle and the third ventricle. There is
decreased size of the right lateral ventricle when compared to the left, and slight shift of the septum pellucidum toward the left, and findings suggest peripheral arterial shunting of the right lateral ventricle when compared to the left. There is
no evidence of acute intracranial hemorrhage. In the inferior aspect of the left thalamus, there is a small focal area of decreased density measuring 1.5 cm transverse by 0.8 cm AP, compatible with encephalomalacia from previous region of
intracranial hemorrhage. No abnormal extra-axial collection is identified. There is 80% opacification of the sphenoid sinus, slightly improved from previous examination. The rest of the paranasal sinuses appear clear. The mastoid air cells appear
clear.
AP 02/23/25- 2 small nephroliths within the posterior upper pole the right kidney. As described, evidence for blood products/hematoma within the calyces of the upper pole of the right kidney. Wall of the urinary bladder appears mildly diffusely
thickened, which may be on the basis of incomplete distention, but correlate clinically to exclude cystitis. Mild hepatomegaly with no focal hepatic lesion. Thickening of the wall the duodenum extending from the duodenal bulb contiguously through
the distal third portion, with stranding of the adjacent fat. Main differential considerations of primary duodenitis, versus reactive duodenitis from pancreatitis. There is mild stranding of the fat adjacent to the pancreatic head with no focal
collection. Mild to moderate subcutaneous edema greatest in the lateral flanks.
Echo: 05/01/25- Normal biventricular size and systolic function without regional wall motion abnormality. LV ejection fraction is 55-60% by visual assessment. Normal diastolic function. No significant valvular disease. No obvious vegetation. No
prior study available for comparison.
PFT's:
Reports and relevant images were personally reviewed.
Critical Care time 42 mins -- The patient is admitted for acute critical illness for the treatment of vital organ failure and/or prevention of further life-threatening conditions. Total care includes time spent in review of history, physical exam,
medications, hemodynamic/ventilator parameters, laboratory data, imaging and discussion with house staff, pharmacy, respiratory therapy, pole framer machine, and nursing.
Subjective Dataa
Subjective Data
Date of Service:
Date of Service: May 05, 2025
Chief Complaint: Edging Catcher Follow Up (Endocarditis/septic shock/hypoxemic respiratory failure)
Subjective:
Intubated, mechanical ventilation. Unable to provide history.
Following commands
Denies abdominal pain
Asking to get ET tube removed
Review of Systems
General: Other (Difficult to obtain due to intubation status)
Objective Data
Data Reviewed
Vital Signs / I&O / Oxygen:
Vital Signs
Temp Pulse Resp BP Pulse Ox
100.7 F H 94 30 151/75 96
05/05/25 07:50 05/05/25 11:06 05/05/25 11:06 05/05/25 11:00 05/05/25 11:06
Intake and Output
05/04/25 05/05/25 05/06/25
06:59 06:59 06:59
Intake Total 2822.23 / 2959.73 3750.9 / 3983.4 1134.5 / 1134.5
Output Total 3315 / 3415 2845 / 2950 400 / 400
Balance -492.77 / -455.27 905.9 / 1033.4 734.5 / 734.5
SaO2 [CPAP/PSV] 94
SaO2 [A/C] 94
SaO2 96
Nasal Cannula flow liters per 60
minute
Physical Exam
General: Other (chronically ill appearing, obese)
HEENT: Normocephalic, Anicteric and Other (ET tube in place without secretion)
Cardiovascular: S1-S2, Regular Rhythm and Peripheral Edema (chronic venous stasis changes)
Respiratory: Clear, Non-Labored Respirations and ET Tube
GI: Soft, Non Distended and Non Tender
Neurology: Awake (with verbal/tactile stim), Alert and Non Verbal (but following commands)
Skin: Warm, Dry and Rash (throughout LEs, fluctuance on R inner thigh)
Labs/Micro/Reports
Lab Data
05/05/25 03:29
05/05/25 03:29
Laboratory Results
05/04/25
14:45
APTT Cancelled
Microbiology
05/03/25 04:25 Blood/Venous Blood Culture - Preliminary
Staphylococcus aureus
05/03/25 04:25 Blood/Venous Gram Stain - Preliminary
05/04/25 09:25 Endotracheal Respiratory Culture - Preliminary
Staphylococcus aureus
05/04/25 09:25 Endotracheal Gram Stain - Preliminary
05/04/25 03:13 Blood/Venous Blood Culture - Preliminary
No Growth in 24 hours- Final report to follow
05/02/25 03:16 Blood/Venous Blood Culture - Preliminary
Staph aureus MRSA
05/02/25 03:16 Blood/Venous Gram Stain - Preliminary
05/01/25 17:45 Blood/Venous Blood Culture - Final
Staph aureus MRSA
05/01/25 17:45 Blood/Venous Gram Stain - Final
04/30/25 19:46 Blood/Venous Blood Culture - Final
Staph aureus MRSA
04/30/25 19:46 Blood/Venous Gram Stain - Final
04/30/25 19:46 Blood/Venous Blood Culture - Preliminary
Staph aureus MRSA
04/30/25 19:46 Blood/Venous Gram Stain - Preliminary
05/01/25 01:32 Urine Urine Culture - Final
Yeast
--- NOTE | 2025-05-05 11:16 | PTCARENOTE ---
Patient placed on wean, CPAP 5/5 just prior to 1100. Around 1110, vent alarming. RN at bedside. Patient self extubated. Pulse ox down to 87%. Fentanyl drip turned off. NRB placed on. Pulse ox up to 97%. Patient yelling at RN, 'do not put that back
in me' and 'I need water'. RT and Licensed Nursing Assistant notified.
--- NOTE | 2025-05-05 11:30 | PTCARENOTE ---
Systems reviewed. AAOx3. B/l wrist restraints removed. MAEx4; trace in RLE. ST on tele, rate in the 100's. Weaned to 6L nc. Pulse ox 92-93%. Lung sounds diminished throughout left lung, coarse throughout right lung. Tachypneic. RR in the 30-40's.
Denies dyspnea. No other changes. Weaning Precedex as tolerated. GASKET SUPERVISOR consulted.
[2025-05-05] MEDS: NOVOLOG FLEXPEN-LOW RESISTANCE SC ×3 (11:42→23:57)
--- NOTE | 2025-05-05 11:48 | PTCARENOTE ---
Pulse ox 91%. Transitioned to 8L MF by RT. Pulse ox 93%. RR down to 26. New skin tear present on left cheek from ett jansen. Patient resting comfortably. Only complaint is he would like to drink.
[2025-05-05 11:53] LABS: Glucose - Point of Care 135 mg/dl (70-99)
--- NOTE | 2025-05-05 13:14 | PTOTSP ---
Dysphagia Evaluation
Patient has acute on chronic dysphagia risk factors (i.e., septic shock, current PNA, self-extubation today after 5 day intubation for AHRF, current tachypnea, suspected opiate withdrawal; prior left thalamic ICH with facial/lingual weakness, many
missing teeth in poor condition). No significant dysphonia identified. No concern for significant pharyngeal dysphagia. Mild oral dysphagia.
Baseline changes to speech/language (suspect mild dysarthria, aphasia, apraxia) noted.
Recommend:
1. IDDSI 4 Puree/Thin
2. Meds as best tolerated
3. Full supervision, assist as needed for small single sips/bites with breaks for breathing
4. Oral care 3x daily
5. Dysphagia tx at the acute care level to determine if/when diet advancement appropriate
[2025-05-05] MEDS: ROXICODONE 10 MG PO ×2 (15:02→15:42)
--- NOTE | 2025-05-05 15:40 | WOUNDNOTE ---
WOC RN note: clarified R toe wound care with Dr. Burris until he has toe amp surgery. Care plan updated.
--- NOTE | 2025-05-05 15:44 | W.PN.ID1 ---
Date of Service
Date of Service: May 05, 2025
Today's Communication
Continue Vancomycin.
Assessment / Plan
Sustained complicated MRSA bacteremia
Pulmonary septic emboli
Suspect infective endocarditis
Hypoxemic respiratory failure, self extubated 05/05
Fever persists
Leukocytosis - persists
SINDY resolved
Substance abuse (UDS with fentanyl, amphetamine, methamphetamine, benzodiazepine)
Right second toe infection/gangrene; suspected osteomyelitis
Hx CVA (thalamic bleed) with right hemiplegia
Chronic back pain
Recommendations:
Serial blood cultures to assess ongoing bacteremia
05/04/25 blood cx neg x 24h.
Sputum cx MRSA
TTE without noted valvular disease.
Recommend JEAN. Appreciate cardiology
Patient with pain in the medial right thigh area and knee.
CT of the right leg - no drainable fluid collection on thigh/leg.
- Moderate suprapatellar joint effusion with areas of loculation.
Consider aspirate joint fluid to assess for septic bursa
Local care to the right second toe with gangrene.
Eventual amputation when medically stable.
DC meropenem
Continue vancomycin IV for bacteremia. Follow Vanco levels closely.
Follow white count and temperature curve.
Continue with supportive measures.
Guarded prognosis.
����������������������������������������������������������
Chief Complaint
-: Clinical Sepsis and Bacteremia
Subjective / Review of Systems
Pt self-extubated. Wants water.
Vital Signs / Physical Exam
Vital Signs
Vital Signs
Temp Pulse Resp BP Pulse Ox
99.8 F 102 39 158/79 96
05/05/25 15:34 05/05/25 15:00 05/05/25 15:00 05/05/25 15:00 05/05/25 15:00
Physical Exam
Constitutional: Acutely Ill
Eyes: Sclera Anicteric
Cardiovascular: S1/S2 (tachycardic)
Pulmonary: Coarse
Gastrointestinal: Soft, Non Tender, Non Distended and Normal Bowel Sounds
Extremities: Edema (RLE )
Musculoskeletal: Joint Effusion (right knee, warm)
Neurological: Awake
Lines: Other (Tri-catheter intact)
Objective Data
Lab Data
Lab Results
05/05/25 03:29
05/05/25 03:29
PT 20.0 Sec (11.4-14.6) H 04/30/25 19:46
INR 1.65 04/30/25 19:46
APTT Cancelled 05/04/25 14:45
Estimated Creat Clear > 125 ml/min 05/05/25 03:29
Lactic Acid 1.9 mmol/L (0.7-2.0) 05/01/25 12:18
Total Bilirubin 1.8 mg/dl (0.2-1.3) H 05/01/25 12:18
AST 38 U/L (17-59) 05/01/25 12:18
ALT 17 U/L (0-50) 05/01/25 12:18
Alkaline Phosphatase 71 U/L (38-126) 05/01/25 12:18
Most recent labs reviewed.
Micro Results:
05/03/25 04:25 Blood Culture - Preliminary
Blood/Venous Staphylococcus aureus
Gram Stain - Preliminary
05/04/25 09:25 Respiratory Culture - Preliminary
Endotracheal Staphylococcus aureus
Gram Stain - Preliminary
05/05/25 03:34 Blood Culture - Pending
Blood/Venous
05/04/25 03:13 Blood Culture - Preliminary
Blood/Venous No Growth in 24 hours- Final report to follow
05/02/25 03:16 Blood Culture - Preliminary
Blood/Venous Staph aureus MRSA
Gram Stain - Preliminary
05/01/25 17:45 Blood Culture - Final
Blood/Venous Staph aureus MRSA
Gram Stain - Final
04/30/25 19:46 Blood Culture - Final
Blood/Venous Staph aureus MRSA
Gram Stain - Final
04/30/25 19:46 Blood Culture - Preliminary
Blood/Venous Staph aureus MRSA
Gram Stain - Preliminary
05/01/25 01:32 Urine Culture - Final
Urine Yeast
05/01/25 01:17 Blood Parasites Smear - Final
Blood/Venous
04/30/25 23:02 Influenza Types A & B (GIORGIO) - Final
Nasal Swab Negative for Influenza A & B, NAAT
Negative results must be combined with clinical observations
and patient history.
Nucleic Acid Amplification test (NAAT)performed on the
[employer] platform.
Imaging:
05/02/25 CT RLE: Subcutaneous stranding within the soft tissues of the anterior right thigh, and [id number] anterior soft tissues. No drainable abscess is appreciated. Moderate suprapatellar joint effusion, with areas of loculation.
05/01/2025 ECHO (TTE): EF 55%. Normal biventricular size and systolic function. No significant valvular disease. No obvious vegetations.
05/01/2025 CXR (portable): bilateral interstitial and airspace disease noted which may reflect pulmonary edema or pneumonia. Small bilateral pleural effusions noted. Please see full dictation for additional detail.
05/01/2025 Abdominal x-ray. Enteric tube noted in stomach.
05/01/2025 Renal ultrasound: unremarkable renal ultrasound without hydronephrosis, contour deforming solid renal mass or echogenic shadowing foci to suggest renal calculi. Bilateral pleural effusions noted.
05/01/2025 Duplex ultrasound lower extremity: no evidence of DVT in the bilateral lower extremities
04/30/2025 X-ray right foot: soft tissue injury versus ulceration involving the second digit with soft tissue swelling. The cortex of the distal phalanx is indistinct and the possibility of osteomyelitis cannot be excluded. There is soft tissue
swelling of the first digit. No radiographic evidence to suggest osteomyelitis. Please see full dictation for additional detail.
--- NOTE | 2025-05-05 16:04 | CM ---
Self extubated, patient expressed he does not want reintubation, sedation d/cd, dobhoff in place, PO, guarded prognosis. Dischargge POC: TBD. Await therapy eval and recommendation.
--- NOTE | 2025-05-05 16:31 | W.PN.UPDATE ---
Update Note
Progress Note Update
Patient self extubated.
No stridor on exam
Remains on supplemental oxygen maintain pulse ox above 90%
Speech pathology cleared him for diet with supervision.
Diuretics will be on hold overnight.
Follow electrolytes
Patient states that he would not want to be reintubated.
Complaining of lower extremity pain-start oral narcotics. Monitor respiratory status closely
Physical therapy tomorrow if patient is appropriate.
Discontinue Precedex.
Hopefully can transfer to telemetry tomorrow.
--- NOTE | 2025-05-05 17:00 | PTCARENOTE ---
Systems reviewed. Patient intermittently yelling out. Stating he is going to 'cut his leg off'. Pain better controlled with PRN Vanessa. ST on tele. Diaphoretic. Tachypneic. Wheezing upon exertion in bed. Pulse ox 96-97% on 8L MF. Repositioned to chair
position in bed. Encouraged slow, deep breathing. No other changes. Call finley within reach; ringing appropriately.
[2025-05-05] MEDS: LOVENOX 40 MG SC (17:16)
[2025-05-05 17:47] LABS: Glucose - Point of Care 110 mg/dl (70-99)
[2025-05-05] MEDS: ROXICODONE 20 MG PO ×2 (19:28→23:55)
--- NOTE | 2025-05-05 21:00 | PTCARENOTE ---
Pt desatting to 88% pulse ox. O2 increased to 10L via midflow.
[2025-05-05] MEDS: TYLENOL ORAL SOLUTION 650 MG PO ×2 (21:22→23:56)
[2025-05-05] MEDS: CATAPRES 0.2 MG PO ×2 (21:43→23:54)
[2025-05-05 22:04] LABS: Glucose - Point of Care 117 mg/dl (70-99)
--- NOTE | 2025-05-05 23:55 | PTCARENOTE ---
Pt c/o of 10 out of 10 rt lower leg pain. PRN dose of sarah administered by this RN.
[2025-05-06] VITALS (15 sets, daily range): BP systolic 123–166; BP diastolic 68–96; BMI 37.4
--- NOTE | 2025-05-06 04:30 | PTCARENOTE ---
Pt resting comfortably at this time.
[2025-05-06] MEDS: TYLENOL ORAL SOLUTION 650 MG PO ×4 (05:56→20:16)
[2025-05-06] MEDS: CATAPRES 0.2 MG PO ×3 (05:57→18:08)
[2025-05-06] MEDS: ROXICODONE 20 MG PO ×4 (06:10→20:16)
[2025-05-06 07:11] LABS: Hematocrit 35.7 % (39.0-52.0); Hemoglobin 11.2 g/dL (13.0-18.0); Mean Corp Hgb Conc. 31.4 g/dL (33.0-37.0); Mean Corpuscular Volume 86.4 fL (80.0-94.0); Platelet Count 310 10^3/uL (130-400); Red Cell Dist. Width 17.2 % (11.5-14.5)
[2025-05-06 07:17] LABS: Blood Urea Nitrogen 20 mg/dl (9-20); Calcium 8.0 mg/dl (8.4-10.2); Carbon Dioxide 31 mmol/L (22-30); Chloride 112 mmol/L (98-107); Estimated Creatinine Clearance > 125 ml/min; Glucose 118 mg/dl (70-99); Potassium 3.7 mmol/L (3.5-5.1); Sodium 144 mmol/L (135-145); eGFR > 60.00
[2025-05-06] MEDS: NOVOLOG FLEXPEN-LOW RESISTANCE SC ×3 (07:19→17:54)
--- NOTE | 2025-05-06 07:32 | W.PN.HOSP.TC ---
Today's Communication/Plan
-
IV Vanc/Meropenem
JEAN
Toe amputation when stable
O2 support as needed
consult ortho regarding aspiration right knee
appreciate specialists
Assessment / Plan
Assessment / Plan
Mr. Patrice Mera is a 50 yo man with hx polysubstance abuse, prior CVA (thalamic bleed; right hemiplegia), essential HTN, admitted 04/30 with septic shock 2/2 MRSA bacteremia, SINDY with anion gap metabolic acidosis and hypoxemic respiratory failure.
Venous Dopplers lower extremity-no DVT noted
Echo 05/01/2025-normal biventricular size and systolic function. EF 55 to 60% no vegetation
CT right lower extremity with contrast-subcutaneous stranding within the soft tissues of the anterior thigh and below the knee. No abscess. Moderate suprapatellar joint effusion with areas of loculation. Moderate pelvic free fluid of unknown
etiology. Right inguinal and right iliac chain lymphadenopathy which may be reactive, neoplastic enlargement is not excluded.
Chest x-ray reviewed by me-bilateral infiltrates/edema
LENNY-right LENNY 0.75 and left LENNY 0.83 TBI were obtainable. Doppler waveforms at the ankle bilaterally shows artifacts but remain multiphasic
Renal ultrasound-unremarkable renal ultrasound. Bilateral pleural effusions
CT PE study-no evidence of central PE. Extensive bilateral cavitary nodular opacities compatible with bilateral cavitary pneumonia likely based on septic emboli. Small to moderate bilateral pleural effusions. Gynecomastia. Small amount of
ascites in the right upper quadrant adjacent to the liver.
# Acute respiratory failure
VDRF
-patient was intubated for multiple reasons in setting of septic shock, pneumonia, septic emboli
-CTA without PE
-s/p self extubation on 05/05
-cleared for diet
-remains on 10L midflow, wean as able
# MRSA sepsis present on admission
MRSA Bacteremia
Septic Shock - patient was on Levo, Vaso, Epi, Giapreza
- positive from 04/30, 05/01,05/02, 05/03. Cultures from 05/04 negative so far
-Continue vancomycin
-Will need amputation of the toe-podiatry consulted and following
-CT with no abscess
-LENNY as above
-Needs JEAN
Right second toe infection Gangrene
-appreciate ID
-IV Vanc/Meropenem
-seen by podiatry 05/02; will reuqire toe amputation when medically stable
-wound care betadine soaked gauze to toe - change every day
# Acute kidney injury
Metabolic Acidosis
-Patient briefly required CRRT but could not tolerate long
-Creatinine improved, SINDY resolved
-Ultrasound of the kidneys with no obstruction
-continue haney
-appreciate Renal
-Bumex now off, FWF increased in TF for hypernatremia on 05/05
# Anasarca
# Hypoalbuminemia
-bumex on hold
# Drug abuse urine drug screen positive for Fentanyl, Benzos, Amphetamines and Methamphetamines
Patient was discharged to a rehab last admission however he stayed there only for 2 days and signed himself out
# Multidrug resistant hypertension-currently blood pressure stable without medicines. Watch off of medicines.
Patient was on Coreg, losartan, clonidine, Aldactone as outpatient.
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 Transferred to [facility] . Pt says he was there for 3 months and has weakness of right side and facial droop. Pt appropriately responding.
#Chronic back pain
#Morbid obesity with a BMI of 35- Weight loss recommended
#History of nephrolithiasis
#Possible sleep apnea-needs outpatient study as OP.
#ADHD
#Hepatic steatosis per prior imaging-outpatient follow-up
# Active smoker-cessation counseling when able
# Nutrition-started tube feeds
#DVT prophylaxis-Lovenox
#Full code
Per Dr. Jamison
Discussed with podiatry regarding timing for amputation. Will also consult cardiology for JEAN.
Spoke to patient's mother and updated. Mother states that his Saritha is still in rehab. Any is not patient's biological daughter that his stepdaughter.
Mother was updated that patient is still very sick with positive blood cultures and may need amputation. Plan discussed. she asked how his behavior was and wanted me to be 'safe around him'. She stated that she found street drugs in his room
after he went to [place] before this admission.
51 minutes spent on patient care
Anticipated Discharge: > 48 hours
Subjective/Interval History
-
Date of Service: May 06, 2025
patient states he is doing ok
has pain in his right knee
febrile overnight
Objective Data
-
Labs:
Laboratory Results
05/06/25
06:19
WBC 28.3 H
Hgb 11.2 L
Hct 35.7 L
Plt Count 310
Sodium 144
Potassium 3.7
Chloride 112 H
Carbon Dioxide 31 H
BUN 20
Creatinine 0.6 L
Glucose 118 H
Calcium 8.0 L
Vital Signs:
Vital Signs
Temp Pulse Resp BP Pulse Ox
98.8 F 106 36 148/96 92
05/06/25 05:00 05/06/25 06:30 05/06/25 06:30 05/06/25 06:00 05/06/25 06:30
I&O
05/05/25 05/06/25 05/07/25
06:59 06:59 06:59
Intake Total 3750.9 / 3983.4 4680.4 / 4680.4
Output Total 2845 / 2950 2795 / 2795
Balance 905.9 / 1033.4 1885.4 / 1885.4
Review of Systems
-
History Source: Patient
All other systems: Reviewed and negative
Physical Exam
-
General: Obese and Other (on 10L midflow, mildly tachypneic )
HEENT: PERRLA
Respiratory: Negative Wheezes
Cardiac: Regular Rhythm and S1/S2
GI: Soft and Nontender
Musculoskeletal: Other (right knee swollen and tender )
Neuro: AO x 3 and Other (expressive aphasia, right hemiparesis )
Psych: Calm
Data Reviewed
-
Diagnostic Radiology: Report Reviewed by me
Labs: Labs Reviewed by me
--- NOTE | 2025-05-06 07:46 | PHA.VAN.FU ---
Addendum entered and electronically signed by Lalita Syed Lili 05/06/25 08:44:
Agree with resident's assessment and plan
Original Note:
Vancomycin Assessment / Plan
- Assessment
Renal Function: SCR Decreasing
WBC's are: Trending Up
In the past 24 hrs, patient has been: Febrile
Concomitant Antimicrobials: meropenem
- Assessment - Therapeutic Drug Monitoring
Random Level: 9.4 - drawn ~13H after dose of 1250mg
- Dosing Plan
Dosing by Level: Re-dose today (give 1500mg x2 doses, one this morning and one at 1800)
- Monitoring Plan
Random Level: 05/07 600
- Follow Up
Pharmacy will continue to follow.
Vancomycin Follow UP
- -
Patient Age: 50
Patient Sex: Male
Vancomycin Day #: 6
Indication: Bacteremia
Requesting Provider: Dr. Hoskins/Dr. Amador
Pertinent Antimicrobial Allergies:
clindamycin - reaction unknown
penicillins - shortness of breath; tolerated cefepime
trimethoprim/sulfamethoxazole - reaction unknown
Height / Weight:
Height 6 ft 3 in
Actual Weight 135.8 kg
Pertinent Past Medical History: IV NATI, BMI 36
- Vital Signs / Lab Results
Temp Pulse Resp BP Pulse Ox
98.8 F 106 36 148/96 92
05/06/25 05:00 05/06/25 06:30 05/06/25 06:30 05/06/25 06:00 05/06/25 06:30
Lab Results - Hematology
05/04/25 05/05/25 05/06/25
03:13 03:29 06:19
WBC 21.7 H 25.7 H 28.3 H
Lab Results - Chemistry
05/04/25 05/05/25 05/06/25
03:13 03:29 06:19
BUN 41 H 30 H 20
Creatinine 0.9 0.8 0.6 L
Estimated Creat Clear > 125 > 125 > 125
Microbiology Results
05/03/25 04:25 Blood Culture - Preliminary
Blood/Venous Staphylococcus aureus
Gram Stain - Preliminary
05/04/25 09:25 Respiratory Culture - Preliminary
Endotracheal Staphylococcus aureus
Gram Stain - Preliminary
05/05/25 03:34 Blood Culture - Preliminary
Blood/Venous No Growth in 24 hours- Final report to follow
05/04/25 03:13 Blood Culture - Preliminary
Blood/Venous No Growth in 48 hours- Final report to follow
05/02/25 03:16 Blood Culture - Preliminary
Blood/Venous Staph aureus MRSA
Gram Stain - Preliminary
05/01/25 17:45 Blood Culture - Final
Blood/Venous Staph aureus MRSA
Gram Stain - Final
04/30/25 19:46 Blood Culture - Final
Blood/Venous Staph aureus MRSA
Gram Stain - Final
04/30/25 19:46 Blood Culture - Preliminary
Blood/Venous Staph aureus MRSA
Gram Stain - Preliminary
Therapeutic Drug Monitoring
Random Vancomycin 9.4 ug/ml 05/06/25 06:19
[2025-05-06 08:20] LABS: Glucose - Point of Care 109 mg/dl (70-99)
[2025-05-06 08:28] LABS: Absolute Neutrophils -Man Diff 25.1 10^3/uL (1.4-6.5); Anisocytosis 1+; Normal RBC Morphology No; Platelets Checked Yes; Polychromasia Slight; Total Cells Counted 100
[2025-05-06] MEDS: MIRALAX PO (08:44)
[2025-05-06] MEDS: MYCOSTATIN ORAL SUSPENSION PO (08:44)
--- NOTE | 2025-05-06 08:44 | PTCARENOTE ---
Pt rec'd in report from night RN, plan discussed with care team, pt sent to geochemical laboratory technician for JEAN with CHAYA Melara on stretcher. 10 L midflow oxygen on pt at this time, sat 94 %. Per Mimeographer, pt stable for downgrade afterward. Care ongoing.
--- NOTE | 2025-05-06 10:31 | TRANSFER ---
Report was given to CHAYA Galo on IMU, pt will go to IMU [id number] after JEAN is completed, qc lab technician notified by ICU childhood teacher.
--- NOTE | 2025-05-06 10:50 | W.PN.CD ---
Today's Communication / Plan
-
No evidence of endocarditis on JEAN
Cardiology will sign off. Please call with any additional questions or concerns.
Impression / Plan
-
I/P: 50M with opioid use disorder, CVA (right hemiplegia), and hypertension who presented to the ER 04/30/2025 with a chief complaint of shortness of breath. Cardiology consult for MRSA bacteremia.
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
Sepsis, MRSA bacteremia
- Improving, was on 3 pressors and angiotensin II, currently off
- Source is believed to be foot, will require amputation, podiatry following
- Blood culture 05/01 - 05/03 growing MRSA, no growth since then
- JEAN without vegetation
- IV Vanc/Meropenem
Acute hypoxic respiratory failure
- Self extubated 05/05/2025
- No PE on CT
- Significant lung disease per pulmonary, making weaning impaired
Gangrenous right second toe with exposed bone, podiatry following
SINDY, resolved
- Was briefly on CRRT
- Renal ultrasound unremarkable nephrology following
Multidrug-resistant hypertension
- BP currently stable without antihypertensive agents
Opioid abuse
- UDS positive for fentanyl, benzodiazepines, amphetamines, and methamphetamines at admission
- He signed himself out of rehab
Prior CVA, left thalamic bleed with right hemiaplasia
Obesity, BMI 36.9, he would benefit from weight loss
Current smoker, full cessation recommended
Subjective: No CV complaints. AAO to self, hospital, month, president. Not day or year.
Physical Exam
Vital Signs/Labs
Vital Signs
Temp Pulse Resp BP Pulse Ox
98.5 F 104 35 157/80 94
05/06/25 08:17 05/06/25 08:00 05/06/25 08:00 05/06/25 08:00 05/06/25 08:00
05/05/25 05/06/25 05/07/25
06:59 06:59 06:59
Actual Weight 295 lb 3.183 oz 299 lb 6.204 oz
05/06/25 06:19
05/06/25 06:19
PT 20.0 Sec (11.4-14.6) H 04/30/25 19:46
INR 1.65 04/30/25 19:46
APTT Cancelled 05/04/25 14:45
Magnesium 1.7 mg/dl (1.6-2.3) 05/05/25 03:29
Free T4 1.62 ng/dl (0.78-2.19) 05/01/25 01:17
04/30/25 05/01/25 05/04/25
19:46 03:48 03:13
Gai-U-Oxmpmlrxavp Pept [phone]
Physical Exam
Constitutional: No acute distress
Cardiovascular: Rhythm & rate is regular, Pedal edema present, S1S2 is normal and Murmur/rub/gallop absent
Respiratory: Labored respirations (belly breathing)
Neuro/Psych: Oriented and Other (R arm weakness)
Data Reviewed
-
Date of Service: May 06, 2025
Medical Decision Making: Reviewed Test Results, Independent Historian Assessment, Test Interpretation and Review of Case with other Provider
EKG: Tracing Personally Visualized and interpreted
Echo: Tracing Personally Visualized and interpreted and Report Reviewed by me
Labs: Labs Reviewed by me
[2025-05-06] MEDS: TYLENOL ORAL SOLUTION PO (11:06)
[2025-05-06] MEDS: VANCOCIN 530 MG IV ×2 (11:14→18:07)
[2025-05-06] MEDS: DESENEX/MITRAZOL/ZEASORB 1 APPLIC TOPICAL ×2 (11:16→20:17)
[2025-05-06] MEDS: HYDROPHOR 1 APPLIC TOPICAL (11:16)
[2025-05-06] MEDS: MYCOSTATIN ORAL SUSPENSION 5 ML PO ×2 (11:17→18:08)
[2025-05-06] MEDS: PROTONIX IV 40 MG IV (11:21)
[2025-05-06] MEDS: NSS (PRESERVATIVE FREE) 10 ML IV (11:22)
--- NOTE | 2025-05-06 11:25 | W.PN.INTV ---
Today's Communication / Plan
Recommendations
Continue secretion clearance interventions
Acapella
Incentive spirometry
Nebulizers as needed
Continue oxygen supplementation-currently mid flow 10 L
Radiographic follow-up as needed
Continue antibiotics per infectious disease
Nutritional support
Aspiration precaution
High risk situation
Transfer to IMU
Pulmonary will follow
Assessment
-
Patient is a 50-year-old male with previous history of opiate use disorder, left thalamic intracranial hemorrhage, presenting to ER with complaints of chest pain, shortness of breath and right toe pain. He arrived in the ER in apparent
respiratory distress with increased work of breathing. He was tried on BiPAP but could not tolerate it. He was admitted here recently in January for opiate use disorder and withdrawal symptoms. UDS is positive for fentanyl, amphetamines,
benzodiazepines. Chest x-ray demonstrating mild left lower lobe pneumonia, he is on HFNC (PAO2 on ABG 73). Admitted to ICU for hypoxemia.
Profound septic shock on 4 pressors: levo, vaso, epi, giapreza--improved now off pressors
Bilateral septic emboli on CAT scan.
Acute hypoxic respiratory failure on high flow nasal cannula-->intubation 05/01
Extubated 05/05/2025.
Metabolic acidosis-resolved
Acute kidney injury, creatinine 6.9-resolved
MRSA endocarditis with pulmonary septic emboli.
Tick bite-negative serology
Possible skin infection/cellulitis
UDS +Fent
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
Cellulitis left lower extremity
Hypertensive urgency
Opiate abuse with withdrawal
Microscopic hematuria, Albuminuria noted in the urine
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
Leukocytosis- elevated since 2008 labs
Chronic back pain
Morbid obesity with a BMI of 39
History of nephrolithiasis
Possible sleep apnea-needs outpatient study asleep
ADHD
Hepatic steatosis per prior imaging
Active smoker
Plan:
Patient self extubated 05/05/2025.
Remains on 10 L supplemental oxygen
Hypoxemic respiratory failure in the setting of severe septic emboli noted on CAT scan with cavitating lesions.
Initially also component of volume overload status post diuresis
Remains on 10 L mid flow after extubation pulse ox 94%.
Incentive spirometry ordered
Patient does have some wet cough: Acapella device ordered
May continue nebulizers as needed to aid with secretion clearance
-
Septic shock resolved:
Hemodynamically stable, initially requiring pressors: levo, vaso, epi, giap--not completely off pressors> 72 hours
Echocardiogram with normal LVEF. No appreciable vegetations. No significant valvular abnormalities.
JEAN 05/06/2025: Hyperdynamic left ventricle. Left ventricular systolic function greater than 75%. No evidence for any valvular vegetations. Trace mitral valve regurgitation.
Monitor on telemetry
-
Respiratory failure hypoxia: Respiratory status improved but still with significant limitation. Patient is very deconditioned. Essentially bedbound.
ABG without evidence of hypercapnia.
CT chest 05/04/2025: with bilateral significant cavitating infiltrates likely septic emboli versus cavitating pneumonia.
Suspect Endocarditis-MRSA positive.
Echocardiogram noted: No vegetations
Cardiology consulted for JEAN.
Vancomycin ongoing
Last blood culture + 05/03/2025.
Respiratory culture also with Staph aureus.
Persistent leukocytosis
Afebrile
Blood culture 05/05/2025: No growth to date.
Blood culture 05/04/2025: No growth to date.
CT Thigh w/ IV contrast--no evidence of skin infection/skin lesions improving past 48 hours
Eventual toe amputation per podiatry-later this week.
-
Tick noted, serology negative
ID Following
SINDY --creatinine back to normal.
Encourage oral hydration. Tolerating diet.
Cheng urinary output-Cheng in place
Hold Bumex for today due to hypernatremia-defer to nephrology
-
Now hypertensive:
Eventual restart antihypertensive-defer to primary team.
-
CBC stable, no signs of bleeding or coagulopathy.
DVT prophylaxis as assessed based on risk, including mechanical SCDs
Can transfuse if indicated for Hb <7, plt < 10
INR WNL
Pain control with narcotics.
Monitor respiratory status closely
Physical therapy/Occupational Therapy as able. Patient with significant deconditioning.
Diarrhea: Possibly due to tube feedings.
Benign abdominal exam
Continue to follow already on contact precautions
Prognosis is guarded
Transfer to intermediate care unit. Pulmonary will continue to follow for hypoxemia and bilateral infiltrates.

Diagnostic Data
Chest X-Ray: 04/30/25- Mild left lower lobe pneumonia. Trace bilateral pleural effusions.
CT Scan: CT head 01/2025: There is a ventricular shunt present which enters from the right superior frontal region, with tip of the shunt to the junction of the inferior frontal horn of the right lateral ventricle and the third ventricle. There is
decreased size of the right lateral ventricle when compared to the left, and slight shift of the septum pellucidum toward the left, and findings suggest peripheral arterial shunting of the right lateral ventricle when compared to the left. There is
no evidence of acute intracranial hemorrhage. In the inferior aspect of the left thalamus, there is a small focal area of decreased density measuring 1.5 cm transverse by 0.8 cm AP, compatible with encephalomalacia from previous region of
intracranial hemorrhage. No abnormal extra-axial collection is identified. There is 80% opacification of the sphenoid sinus, slightly improved from previous examination. The rest of the paranasal sinuses appear clear. The mastoid air cells appear
clear.
AP 02/23/25- 2 small nephroliths within the posterior upper pole the right kidney. As described, evidence for blood products/hematoma within the calyces of the upper pole of the right kidney. Wall of the urinary bladder appears mildly diffusely
thickened, which may be on the basis of incomplete distention, but correlate clinically to exclude cystitis. Mild hepatomegaly with no focal hepatic lesion. Thickening of the wall the duodenum extending from the duodenal bulb contiguously through
the distal third portion, with stranding of the adjacent fat. Main differential considerations of primary duodenitis, versus reactive duodenitis from pancreatitis. There is mild stranding of the fat adjacent to the pancreatic head with no focal
collection. Mild to moderate subcutaneous edema greatest in the lateral flanks.
Echo: 05/01/25- Normal biventricular size and systolic function without regional wall motion abnormality. LV ejection fraction is 55-60% by visual assessment. Normal diastolic function. No significant valvular disease. No obvious vegetation. No
prior study available for comparison.
PFT's:
Reports and relevant images were personally reviewed.
Subjective Dataa
Subjective Data
Date of Service:
Date of Service: May 06, 2025
Chief Complaint: Ed Special Education Teacher Follow Up (Endocarditis/septic shock/hypoxemic respiratory failure)
Subjective:
Patient denied shortness of breath at rest
Continues to have cough with intermittent phlegm production.
Remains on supplemental oxygen
Tolerating diet
Review of Systems
General: Fever (n)
Cardiopulmonary: Dyspnea (none at rest), Dyspnea on Exertion, Cough and Sputum Production
GI: Abdominal Pain (n) and Nausea (n)
Objective Data
Data Reviewed
Vital Signs / I&O / Oxygen:
Vital Signs
Temp Pulse Resp BP Pulse Ox
98.5 F 104 35 165/94 94
05/06/25 08:17 05/06/25 11:14 05/06/25 08:00 05/06/25 11:14 05/06/25 08:00
Intake and Output
05/05/25 05/06/25 05/07/25
06:59 06:59 06:59
Intake Total 3750.9 / 3983.4 4680.4 / 4680.4 0 / 0
Output Total 2845 / 2950 2795 / 2795 150 / 150
Balance 905.9 / 1033.4 1885.4 / 1885.4 -150 / -150
SaO2 [CPAP/PSV] 94
SaO2 [A/C] 94
SaO2 94
Nasal Cannula flow liters per 8
minute
Physical Exam
General: Other (chronically ill appearing, obese)
HEENT: Normocephalic, Anicteric and Other (ET tube in place without secretion)
Cardiovascular: S1-S2, Regular Rhythm and Peripheral Edema (chronic venous stasis changes)
Respiratory: Crackles and Other (Mild increased work of breathing with movement.)
GI: Soft, Non Distended and Non Tender
Neurology: Awake (with verbal/tactile stim), Alert, No Motor Deficits and Other (Following commands)
Skin: Warm, Dry, Rash (throughout LEs, fluctuance on R inner thigh) and Other (Anasarca)
Labs/Micro/Reports
Lab Data
05/06/25 06:19
05/06/25 06:19
Microbiology
04/30/25 19:46 Blood/Venous Blood Culture - Final
Staph aureus MRSA
04/30/25 19:46 Blood/Venous Gram Stain - Final
05/04/25 09:25 Endotracheal Respiratory Culture - Final
Staph aureus MRSA
05/04/25 09:25 Endotracheal Gram Stain - Final
05/03/25 04:25 Blood/Venous Blood Culture - Preliminary
Staph aureus MRSA
05/03/25 04:25 Blood/Venous Gram Stain - Preliminary
05/05/25 03:34 Blood/Venous Blood Culture - Preliminary
No Growth in 24 hours- Final report to follow
05/04/25 03:13 Blood/Venous Blood Culture - Preliminary
No Growth in 48 hours- Final report to follow
05/02/25 03:16 Blood/Venous Blood Culture - Preliminary
Staph aureus MRSA
05/02/25 03:16 Blood/Venous Gram Stain - Preliminary
05/01/25 17:45 Blood/Venous Blood Culture - Final
Staph aureus MRSA
05/01/25 17:45 Blood/Venous Gram Stain - Final
04/30/25 19:46 Blood/Venous Blood Culture - Final
Staph aureus MRSA
04/30/25 19:46 Blood/Venous Gram Stain - Final
05/01/25 01:32 Urine Urine Culture - Final
Yeast
[2025-05-06 11:41] LABS: Glucose - Point of Care 100 mg/dl (70-99)
--- NOTE | 2025-05-06 12:00 | PTCARENOTE ---
Patient received from ICU. Patient was down in cardiac cath tech and came to IMU room. KAVON LINDSEY. Patient currently with severe pain in his fee, see NOV. Wound dressing CDI. Rectal trumpet in place, brown liquid stool. Cheng in place and ordered for
critical I&O's, will reach out to hospital regarding order. Right IJ in place, will inquired about continued need. Lunch ordered. No further testing at this time. Call finley in reach.
--- NOTE | 2025-05-06 12:22 | CON.ORTHO ---
Consultation
-
Date/Time Consultation Performed: 05/06/2025 1200 PM
Consultation - Orthopedics
History
HPI: 50-year-old male history of polysubstance abuse prior CVA presents emergency department complaints of right foot and toe pain. Subsequently developed septic shock secondary to MRSA bacteremia was admitted to the ICU intubated required pressor
support. Has since been extubated. CT scan was concerning for right knee effusion. Orthopedics was consulted for evaluation and consideration of aspiration of the right knee to evaluate for septic joint. This afternoon patient does describe
fairly diffuse right lower extremity pain. Does note that he is developed some worsening right knee pain however over the last couple of weeks. Ports that he is normally ambulatory but is not really been able to ambulate since his admission. He
does report a remote history of right knee surgery for an infection although he is unclear as to the details.
Allergies / Home Medications
Past medical history: CVA, polysubstance abuse on methadone maintenance
Past surgical history: Right knee arthroscopy, intracerebral shunt
Social history: Tobacco smoker, methamphetamine opiate use, lives in [place]
Family history: Not pertinent
Allergy/AdvReac Type Severity Reaction Status Date / Time
Iodinated Contrast Media Allergy Unknown Nausea / Unverified 05/02/25 13:42
Vomiting
clindamycin Allergy Unknown Verified 04/30/25 16:59
Corticosteroids Allergy Unknown Verified 04/30/25 16:59
(Glucocorticoids)
diphenhydramine HCl (From Allergy Unknown Verified 04/30/25 16:59
Benadryl)
hydrocodone bitartrate (From Allergy vomiting Verified 04/30/25 22:45
Vicodin)
hydroxyzine (Hydroxyzine) Allergy Unknown Verified 04/30/25 16:59
peach Allergy Tongue Verified 04/30/25 16:59
Swelling
Penicillins Allergy Shortness Verified 04/30/25 16:59
of Breath;
tolerated
cefepime
sulfamethoxazole (From Allergy Unknown Verified 04/30/25 16:59
Bactrim)
tramadol Allergy 'throat Verified 04/30/25 16:59
swells up'
trimethoprim (From Bactrim) Allergy Unknown Verified 04/30/25 16:59
�Medication �Instructions �Recorded
acetaminophen 500 mg tablet 1,000 mg (2 x 500 mg) PO Q8 PRN 03/06/25
(Tylenol Extra Strength) mild pain #0 tabs
carvedilol 25 mg tablet 25 mg PO BID Blood pressure #0 tabs 03/06/25
losartan 50 mg tablet 100 mg (2 x 50 mg) PO DAILY Blood 03/06/25
pressure #0 tabs
pantoprazole 40 mg tablet,delayed 40 mg PO DAILY Gastrointestinal 03/06/25
release (Protonix) issue #30 tabs
spironolactone 50 mg tablet 50 mg PO DAILY Blood pressure #0 03/06/25
tabs
clonidine HCl 0.1 mg tablet 0.1 mg PO DAILY Blood pressure 04/30/25
10 point review systems reviewed and negative unless otherwise stated
General: Somewhat ill-appearing, obese, conversant
Musculoskeletal right lower extremity
Examination over the knee reveals intact skin, no erythema, there is palpable knee effusion and significant swelling soft tissues distal thigh and suprapatellar region
Patient with Brody bandages throughout right lower extremity however with reported chronic wounds
Patient is unable to actively flex or extend knee secondary to pain
Fairly diffuse tenderness palpation medial lateral joint line as well as suprapatellar soft tissues
No discrete fluctuance prepatellar bursal region
Diagnostic studies
CT scan right lower extremity obtained during this admission does show evidence of knee effusion
Vital Signs / Lab Results
Temp Pulse Resp BP Pulse Ox
98.9 F 104 35 165/94 94
05/06/25 11:47 05/06/25 11:14 05/06/25 08:00 05/06/25 11:14 05/06/25 08:00
05/06/25 06:19
05/06/25 06:19
Procedure
Right knee aspiration
Risks and benefits of procedure were discussed with patient verbal consent was obtained. Skin was marked and cleaned with alcohol. Utilizing suprapatellar approach, 18-gauge needle was introduced into the suprapatellar pouch. Approximately 55 cc
of cloudy yellow fluid was aspirated. Band-Aid was applied. Patient tolerated the procedure well.
Assessment / Plan
50-year-old male history of polysubstance abuse admission for septic shock secondary to MRSA bacteremia with multiple chronic wounds as well as plans for toe amputation with right knee pain effusion concerning for septic arthritis. Follow-up
synovial fluid analysis. I will plan to order plain film x-ray right knee as well as likely an MRI of the right knee to evaluate for any adjacent soft tissue collections/abscesses right knee.
Nonweightbearing right lower extremity
Antibiotics per primary team/infectious disease
Pain control
Follow-up synovial fluid analysis
Follow-up MRI with and without contrast
Ultimate plan will be determined based on synovial fluid analysis although fluid was grossly concerning for infection
--- NOTE | 2025-05-06 12:25 | W.PN.NEPH.PH ---
Today's Communication / Plan
-
s/o
Assessment/Plan
-
IMP:
Acute kidney injury
Septic shock
Cellulitis left lower extremity
Opiate abuse with withdrawal
Microscopic hematuria, Albuminuria noted in the urine
History of CVA-left thalamus measuring at least 2.5 cm bleed 01/07/24. ventricular shunt
Leukocytosis- elevated since 2008 labs
Chronic back pain
Morbid obesity with a BMI of 39
History of nephrolithiasis
Possible sleep apnea-needs outpatient study asleep
ADHD
Hepatic steatosis per prior imaging
Active smoker
Plan:
SINDY-resolved
HD CVC no longer needed.
If access needed, would recommend changing to TLC or PICC. otherwise, would d/c
s/o please call with questions
-
-
Date of Service: May 06, 2025
CC / HPI / ROS
-
Chief Complaint:
Acute kidney injury septic shock drug abuse
History of Present Illness:
cr improving to 0.6
Bp stable
Na normal
WBC higher 28.3
purulent arthrocentesis right know 05/06
Review of Systems:.
foely, nonoliguric
no CP/SOB
Labs
-
Labs:
WBC 28.3 10^3/uL (4.8-10.8) H 05/06/25 06:19
RBC 4.13 10^6/uL (4.70-6.10) L 05/06/25 06:19
Hgb 11.2 g/dL (13.0-18.0) L 05/06/25 06:19
Hct 35.7 % (39.0-52.0) L 05/06/25 06:19
Plt Count 310 10^3/uL (130-400) 05/06/25 06:19
Sodium 144 mmol/L (135-145) 05/06/25 06:19
Potassium 3.7 mmol/L (3.5-5.1) 05/06/25 06:19
Chloride 112 mmol/L (98-107) H 05/06/25 06:19
Carbon Dioxide 31 mmol/L (22-30) H 05/06/25 06:19
BUN 20 mg/dl (9-20) 05/06/25 06:19
Creatinine 0.6 mg/dL (0.7-1.3) L 05/06/25 06:19
eGFR > 60.00 05/06/25 06:19
Glucose 118 mg/dl (70-99) H 05/06/25 06:19
Calcium 8.0 mg/dl (8.4-10.2) L 05/06/25 06:19
Phosphorus 3.2 mg/dl (2.5-4.5) 05/03/25 04:25
Bdr-M-Lekkxywaeoi Pept 1800 pg/ml 05/04/25 03:13
Albumin 2.8 g/dl (3.5-5.0) L 05/01/25 12:18
Physical Exam
-
Vital Signs:
Vital Signs
Temp Pulse Resp BP Pulse Ox
98.9 F 104 35 165/94 94
05/06/25 11:47 05/06/25 11:14 05/06/25 08:00 05/06/25 11:14 05/06/25 08:00
Cardiovascular:: Regular rate and rhythm
Respiratory:: Bilateral: Coarse
Lung Excursion:: Normal
Abdomen:: Nontender and Soft
Bowel Sounds:: Normal
Extremity Edema:: +1: Bilateral:
[2025-05-06] MEDS: ROXICODONE 10 MG PO ×2 (13:22→18:18)
--- NOTE | 2025-05-06 13:29 | W.PN.ID1 ---
Date of Service
Date of Service: May 06, 2025
Today's Communication
Eval for septic right knee bursa/joint
Continue Vancomycin.
Assessment / Plan
Sustained complicated MRSA bacteremia
Pulmonary septic emboli vs cavitary MRSA PNA
Hypoxemic respiratory failure, self extubated 05/05
Fever persists
Leukocytosis - worse
SINDY resolved
Substance abuse (UDS with fentanyl, amphetamine, methamphetamine, benzodiazepine)
Right second toe infection/gangrene; suspected osteomyelitis
Hx CVA (thalamic bleed) with right hemiplegia
Chronic back pain
Recommendations:
Serial blood cultures to assess ongoing bacteremia
blood cx's from 05/04, neg to date
Sputum cx MRSA
TTE without noted valvular disease.
05/06/25 JEAN: NO VALVULAR VEGETATION
Patient with pain in the medial right thigh area and knee.
CT of the right leg - no drainable fluid collection on thigh/leg.
- Moderate suprapatellar joint effusion with areas of loculation.
Aspirate joint fluid to assess for septic bursa/joint
Right second toe with gangrene.
Eventual amputation when medically stable.
Continue vancomycin IV for bacteremia. Follow Vanco levels closely.
Follow white count and temperature curve.
Continue with supportive measures.
Guarded prognosis.
����������������������������������������������������������
Chief Complaint
-: Clinical Sepsis and Bacteremia
Vital Signs / Physical Exam
Vital Signs
Vital Signs
Temp Pulse Resp BP Pulse Ox
98.9 F 104 35 165/94 94
05/06/25 11:47 05/06/25 11:14 05/06/25 08:00 05/06/25 11:14 05/06/25 08:00
Selected Entries
05/05/25
11:22
Temp 101 F H
Physical Exam
Constitutional: Acutely Ill
Eyes: Sclera Anicteric
Cardiovascular: S1/S2 (tachycardic)
Pulmonary: Coarse
Gastrointestinal: Soft, Non Tender, Non Distended and Normal Bowel Sounds
Extremities: Edema (RLE )
Musculoskeletal: Joint Effusion (right knee, warm)
Neurological: Awake
Lines: Other (Tri-catheter intact)
Objective Data
Lab Data
Lab Results
05/06/25 06:19
05/06/25 06:19
PT 20.0 Sec (11.4-14.6) H 04/30/25 19:46
INR 1.65 04/30/25 19:46
APTT Cancelled 05/04/25 14:45
Estimated Creat Clear > 125 ml/min 05/06/25 06:19
Lactic Acid 1.9 mmol/L (0.7-2.0) 05/01/25 12:18
Total Bilirubin 1.8 mg/dl (0.2-1.3) H 05/01/25 12:18
AST 38 U/L (17-59) 05/01/25 12:18
ALT 17 U/L (0-50) 05/01/25 12:18
Alkaline Phosphatase 71 U/L (38-126) 05/01/25 12:18
Most recent labs reviewed.
Micro Results:
04/30/25 19:46 Blood Culture - Final
Blood/Venous Staph aureus MRSA
Gram Stain - Final
05/04/25 09:25 Respiratory Culture - Final
Endotracheal Staph aureus MRSA
Gram Stain - Final
05/03/25 04:25 Blood Culture - Preliminary
Blood/Venous Staph aureus MRSA
Gram Stain - Preliminary
05/06/25 08:16 Blood Culture - Pending
Blood/Venous
05/05/25 03:34 Blood Culture - Preliminary
Blood/Venous No Growth in 24 hours- Final report to follow
05/04/25 03:13 Blood Culture - Preliminary
Blood/Venous No Growth in 48 hours- Final report to follow
05/02/25 03:16 Blood Culture - Preliminary
Blood/Venous Staph aureus MRSA
Gram Stain - Preliminary
05/01/25 17:45 Blood Culture - Final
Blood/Venous Staph aureus MRSA
Gram Stain - Final
04/30/25 19:46 Blood Culture - Final
Blood/Venous Staph aureus MRSA
Gram Stain - Final
05/01/25 01:32 Urine Culture - Final
Urine Yeast
05/01/25 01:17 Blood Parasites Smear - Final
Blood/Venous
04/30/25 23:02 Influenza Types A & B (GIORGIO) - Final
Nasal Swab Negative for Influenza A & B, NAAT
Negative results must be combined with clinical observations
and patient history.
Nucleic Acid Amplification test (NAAT)performed on the
for[MD] platform.
Imaging:
05/02/25 CT RLE: Subcutaneous stranding within the soft tissues of the anterior right thigh, and [id number] anterior soft tissues. No drainable abscess is appreciated. Moderate suprapatellar joint effusion, with areas of loculation.
05/01/2025 ECHO (TTE): EF 55%. Normal biventricular size and systolic function. No significant valvular disease. No obvious vegetations.
05/01/2025 CXR (portable): bilateral interstitial and airspace disease noted which may reflect pulmonary edema or pneumonia. Small bilateral pleural effusions noted. Please see full dictation for additional detail.
05/01/2025 Abdominal x-ray. Enteric tube noted in stomach.
05/01/2025 Renal ultrasound: unremarkable renal ultrasound without hydronephrosis, contour deforming solid renal mass or echogenic shadowing foci to suggest renal calculi. Bilateral pleural effusions noted.
05/01/2025 Duplex ultrasound lower extremity: no evidence of DVT in the bilateral lower extremities
04/30/2025 X-ray right foot: soft tissue injury versus ulceration involving the second digit with soft tissue swelling. The cortex of the distal phalanx is indistinct and the possibility of osteomyelitis cannot be excluded. There is soft tissue
swelling of the first digit. No radiographic evidence to suggest osteomyelitis. Please see full dictation for additional detail.
Care Review
Plan reviewed with: Physician (Dr. Oakes)
--- NOTE | 2025-05-06 13:49 | W.PN.POD ---
Today's Communication
Today's Communication
Right 2nd toe gangrene
Assessment / Plan
-
Right 2nd toe gangrenous changes with exposed bone
MRSA bacteremia
Hypoxemic respiratory failure
Leukocytosis
SINDY
Plan:
I recommend calcium alginate and gauze to the toe
Given non viable appearance to the toe, he will require toe amputation when medically stable. Will discuss if I may proceed with this surgery tomorrow 05/06
Subjective
Chief Complaint
Right 2nd toe gangrene
Subjective
Patient awake and responding to questions
Objective
Temp Pulse Resp BP Pulse Ox
98.9 F 104 35 165/94 94
05/06/25 11:47 05/06/25 11:14 05/06/25 08:00 05/06/25 11:14 05/06/25 08:00
05/06/25 06:19
05/06/25 06:19
Vital Signs and Lab results were reviewed.
Physical Exam
Physical Exam
Right LE with palpable pulses, generalized edema. Lower legs are bandaged. The distal half of the second toe is dark and necrotic with fibrotic necrotic wound formation that probes directly to the distal bones of the toe. There is malodor and toe
is soft with liquefactive tissue beneath the eschar
X-ray right foot: Soft tissue injury versus ulceration involving the second digit with soft tissue swelling. The cortex of the distal phalanx is indistinct. This may be related to projection, though the possibility of osteomyelitis cannot be
excluded.
--- NOTE | 2025-05-06 14:07 | CM ---
Transferred to IMU Room 3344. JEAN completed, IV/AB for septic R knee, Plan for amputation of R 2nd toe when able, O2 mid-flow @ 10L, NWB RLE, Await synovial fluid analysis. Hi-Risk. Discharge POC: TBD. Awaiting therapy evaluation and
recommendations.
--- NOTE | 2025-05-06 14:17 | W.PN.UPDATE ---
Update Note
Progress Note Update
discussed plan with ortho; MRI right knee with and without recommended, patient will likely need washout
I am at bedside now, observing patient laying flat and respiratory status similar to prior, patient denies increase in shortness of breath. Given concern for septic joint and importance of imaging, discussed with patient benefits of MRI versus
risks. He'll be accompanied by RN for close monitoring. 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
[2025-05-06 14:38] LABS: Body Fluid Second Tech RP
--- NOTE | 2025-05-06 16:04 | W.PN.UPDATE ---
Update Note
Progress Note Update
Preparatory pulmonary assessment.
May proceed with amputation tomorrow of the toe. Aim at source control given persistent leukocytosis.
Overall has clinically improved with no need for vasopressors over 72 hours. Remains on oxygen supplementation due to underlying severe septic emboli bilaterally-this condition will not improve rapidly.
Patient is high risk for pulmonary complications including mechanical ventilation, pneumonia, pulmonary embolism, atelectasis.
It is safe to say that we need to proceed with source control in this situation.
Pulmonary will continue to follow closely.
[2025-05-06 17:47] LABS: Glucose - Point of Care 129 mg/dl (70-99)
[2025-05-06] MEDS: LOVENOX 40 MG SC (18:07)
[2025-05-06 21:21] LABS: Glucose - Point of Care 126 mg/dl (70-99)
--- NOTE | 2025-05-06 22:00 | PTCARENOTE ---
2199: Patient found soiled with stool and rectal trumpet on the ground. Pt unable to state what happened. Pt cleaned up, gown changed and eugene care performed. Pt refusing rectal trumpet to be replaced. Pt constantly asking for pain medication;
education provided on pain med. Pt forgetful and needs reinforcement. Swallowing w/o issues. Pt refusing turns. Urinal at bedside, voiding. Coccyx red and blanching. LE dressings intact. Call finley and tray table within reach. Plan for NPO at [place] for
tentative OR today.
[2025-05-06] MEDS: DUONEB 3 ML INH (22:17)
[2025-05-07] VITALS (19 sets, daily range): BP systolic 0–170; BP diastolic 63–94; PULSE 2–104; BMI 37.9
[2025-05-07] MEDS: ROXICODONE 20 MG PO ×4 (00:29→13:11)
[2025-05-07] MEDS: CATAPRES 0.2 MG PO ×3 (00:29→12:39)
[2025-05-07] MEDS: MYCOSTATIN ORAL SUSPENSION 5 ML PO ×3 (00:29→21:39)
[2025-05-07] MEDS: TYLENOL ORAL SOLUTION 650 MG PO ×4 (00:29→21:39)
[2025-05-07 05:19] LABS: Hematocrit 33.3 % (39.0-52.0); Hemoglobin 10.6 g/dL (13.0-18.0); Mean Corp Hgb Conc. 31.8 g/dL (33.0-37.0); Mean Corpuscular Volume 86.3 fL (80.0-94.0); Nucleated Red Blood Cells % 0 % (-); Platelet Count 287 10^3/uL (130-400); Red Cell Dist. Width 16.9 % (11.5-14.5)
[2025-05-07 05:35] LABS: Blood Urea Nitrogen 14 mg/dl (9-20); Calcium 7.6 mg/dl (8.4-10.2); Carbon Dioxide 33 mmol/L (22-30); Chloride 107 mmol/L (98-107); Estimated Creatinine Clearance > 125 ml/min; Glucose 113 mg/dl (70-99); Potassium 3.7 mmol/L (3.5-5.1); Sodium 141 mmol/L (135-145); eGFR > 60.00
[2025-05-07 07:15] LABS: Glucose - Point of Care 115 mg/dl (70-99)
--- NOTE | 2025-05-07 08:01 | W.PN.HOSP.TC ---
Addendum entered and electronically signed by Alison Oakes MD 05/07/25 11:30:
left VM for mother and daughter
Addendum entered and electronically signed by Alison Oakes MD 05/07/25 08:15:
blood cultures from 05/06 returned positive for MRSA
Original Note:
Today's Communication/Plan
-
obtaining records to proceed with MRI
IV Vancomycin/Meropenem
remains on 10L O2, wean as able
NPO in case able to go to OR today
appreciate Pulmonary assessment - patient is high risk but benefits outweigh risks as source control needed in MRSA bacteremia
appreciate ID, ortho, Podiatry, Pulmonary
Assessment / Plan
Assessment / Plan
Mr. Patrice Mera is a 50 yo man with hx polysubstance abuse, prior CVA (thalamic bleed; right hemiplegia), essential HTN, admitted 04/30 with septic shock 2/2 MRSA bacteremia, SINDY with anion gap metabolic acidosis and hypoxemic respiratory failure.
He is found to have septic joint right knee.
Venous Dopplers lower extremity-no DVT noted
Echo 05/01/2025-normal biventricular size and systolic function. EF 55 to 60% no vegetation
CT right lower extremity with contrast-subcutaneous stranding within the soft tissues of the anterior thigh and below the knee. No abscess. Moderate suprapatellar joint effusion with areas of loculation. Moderate pelvic free fluid of unknown
etiology. Right inguinal and right iliac chain lymphadenopathy which may be reactive, neoplastic enlargement is not excluded.
Chest x-ray reviewed by me-bilateral infiltrates/edema
LENNY-right LENNY 0.75 and left LENNY 0.83 TBI were obtainable. Doppler waveforms at the ankle bilaterally shows artifacts but remain multiphasic
Renal ultrasound-unremarkable renal ultrasound. Bilateral pleural effusions
CT PE study-no evidence of central PE. Extensive bilateral cavitary nodular opacities compatible with bilateral cavitary pneumonia likely based on septic emboli. Small to moderate bilateral pleural effusions. Gynecomastia. Small amount of
ascites in the right upper quadrant adjacent to the liver.
JEAN 05/06/25
SUMMARY
1. Hyperdynamic left ventricular function.
2. Left ventricular systolic function is greater than 75% by visual assesment.
3. No evidence of any valvular vegetations.
4. Trace mitral valve regurgitation.
# Acute respiratory failure
#VDRF
-patient was intubated for multiple reasons in setting of septic shock, pneumonia, septic emboli
-CTA without PE
-s/p self extubation on 05/05
-cleared for diet
-remains on 10L midflow, wean as able
# MRSA sepsis present on admission
MRSA Bacteremia
Septic Shock - patient was on Levo, Vaso, Epi, Giapreza; now off pressors
Septic Arthritis
- blood cultures positive from 04/30, 05/01,05/02, 05/03. Cultures from 05/04 negative so far
- right knee joint aspirate positive for MRSA 05/06
-Continue IV vancomycin
-Will need amputation of the toe, seen by Podiatry
-appreciate ortho, will need washout right knee. Ideally would get MRI first, need records from [facility] regarding METAL BUFFER shunt placed last year
-JEAN 05/06 without e/o vegetation
Right second toe infection Gangrene
-appreciate ID
-IV Vanc/Meropenem
-seen by podiatry 05/02; will reuqire toe amputation when medically stable
-wound care betadine soaked gauze to toe - change every day
# Acute kidney injury - ATN in setting of septic shock
Metabolic Acidosis
-Patient briefly required CRRT but could not tolerate long
-Ultrasound of the kidneys without obstruction
-appreciate Renal
- SINDY now resolved
- haney discontinued on 05/06
# Anasarca
# Hypoalbuminemia
-bumex on hold
# Drug abuse urine drug screen positive for Fentanyl, Benzos, Amphetamines and Methamphetamines
Patient was discharged to a rehab last admission however he stayed there only for 2 days and signed himself out
# Multidrug resistant hypertension-currently blood pressure stable without medicines. Watch off of medicines.
Patient was on Coreg, losartan, clonidine, Aldactone as outpatient.
-*resume 1/2 dose Coreg today (05/07)
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 Transferred to [facility] . Pt says he was there for 3 months and has weakness of right side and facial droop. Pt appropriately responding.
s/p METAL BUFFER shunt at [facility] - awaiting records to proceed with MRI
#Chronic back pain
#Morbid obesity with a BMI of 35- Weight loss recommended
#History of nephrolithiasis
#Possible sleep apnea-needs outpatient study as OP.
#ADHD
#Hepatic steatosis per prior imaging-outpatient follow-up
# Active smoker-cessation counseling when able
#DVT prophylaxis-Lovenox
#Full code
Mother states that his Saritha is still in rehab. Any is not patient's biological daughter that his stepdaughter.
51 minutes spent on patient care
Anticipated Discharge: > 48 hours
Subjective/Interval History
-
Date of Service: May 07, 2025
awoken from sleep
denies pain
breathing stable
Objective Data
-
Labs:
Laboratory Results
05/07/25
04:55
WBC 24.2 H
Hgb 10.6 L
Hct 33.3 L
Plt Count 287
Sodium 141
Potassium 3.7
Chloride 107
Carbon Dioxide 33 H
BUN 14
Creatinine 0.6 L
Glucose 113 H
Calcium 7.6 L
Vital Signs:
Vital Signs
Temp Pulse Resp BP Pulse Ox
97.5 F 98 34 153/94 91
05/07/25 07:23 05/07/25 06:00 05/07/25 06:00 05/07/25 06:00 05/07/25 06:00
I&O
05/06/25 05/07/25 05/08/25
06:59 06:59 06:59
Intake Total 4680.4 / 4680.4 1370 / 1370
Output Total 2795 / 2795 2325 / 2325 250 / 250
Balance 1885.4 / 1885.4 -955 / -955 -250 / -250
Review of Systems
-
History Source: Patient
All other systems: Reviewed and negative
Physical Exam
-
General: Obese and Other (on 10L midflow, mildly tachypneic )
HEENT: PERRLA
Respiratory: Negative Wheezes
Cardiac: Regular Rhythm and S1/S2
GI: Soft and Nontender
Musculoskeletal: Other (right knee swollen and tender )
Neuro: AO x 3 and Other (expressive aphasia, right hemiparesis )
Psych: Calm
Data Reviewed
-
Diagnostic Radiology: Report Reviewed by me
Labs: Labs Reviewed by me
--- NOTE | 2025-05-07 08:23 | W.PN.PUL.V3 ---
Today's Communication / Plan
-
Continue antibiotics
Toe amputation-cleared for proposed surgery from a pulmonary perspective with moderate risks for perioperative pulmonary complications-local anesthesia preferred
Wean oxygen
Eventual radiographic follow-up
Assessment
-
Patient is a 50-year-old male with previous history of opiate use disorder, left thalamic intracranial hemorrhage, presenting to ER with complaints of chest pain, shortness of breath and right toe pain. He arrived in the ER in apparent
respiratory distress with increased work of breathing. He was tried on BiPAP but could not tolerate it. He was admitted here recently in January for opiate use disorder and withdrawal symptoms. UDS is positive for fentanyl, amphetamines,
benzodiazepines. Chest x-ray demonstrating mild left lower lobe pneumonia, he is on HFNC (PAO2 on ABG 73). Admitted to ICU for hypoxemia.
Profound septic shock on 4 pressors: levo, vaso, epi, giapreza--improved now off pressors
Bilateral septic emboli on CAT scan.
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
Acute hypoxic respiratory failure on high flow nasal cannula-->
-Now on daptomycin intubation 05/01
Extubated 05/05/2025.
Metabolic acidosis-resolved
Acute kidney injury, creatinine 6.9-resolved
MRSA endocarditis with pulmonary septic emboli.
Tick bite-negative serology
Possible skin infection/cellulitis
UDS +Fent
Conditions present RN IMCU:
Cellulitis left lower extremity
Hypertensive urgency
Opiate abuse with withdrawal
Microscopic hematuria, Albuminuria noted in the urine
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
Leukocytosis- elevated since 2008 labs
Chronic back pain
Morbid obesity with a BMI of 39
History of nephrolithiasis
Possible sleep apnea-needs outpatient study asleep
ADHD
Hepatic steatosis per prior imaging
Active smoker
Plan:
The patient hypoxemic respiratory failure in the setting of severe sepsis with septic emboli noted on CT chest with cavitating lesions
CT chest 05/04/2025: with bilateral significant cavitating infiltrates likely septic emboli versus cavitating pneumonia
Respiratory status has improved-patient self extubated 05/26
Continue supplemental oxygen-attempt to wean-currently on 10 L mid flow-93% saturation
Incentive spirometry
Increase activity
Acapella and mucus clearing devices as needed
Nebulizers as needed-currently not bronchospastic
Cultures reviewed
Persistent staph
Infectious disease following
Tick noted-serology negative
Continue antibiotics, vancomycin discontinued
Pressors weaned-was on 4 pressors including giapreza-now off with normal function and
Echocardiogram with normal function and no evidence for endocarditis
JEAN 05/06/2025: Hyperdynamic left ventricle. Left ventricular systolic function greater than 75%. No evidence for any valvular vegetations. Trace mitral valve regurgitation.
Podiatry following
Toe amputation pending
Cleared for potential surgery from a pulmonary perspective with moderate risks for perioperative pulmonary complications
Follow-up with
Transfuse as needed
Monitor renal function
SINDY resolved
Nephrology following-correspondence reviewed prophylaxis
DVT-mechanical as well as Lovenox
GI prophylaxis-on pantoprazole
Nutrition
Physical therapy
Outpatient pulmonary [id number] PFTs and sleep study as well as radiographic follow-up
Diagnostic Data
Chest X-Ray: 04/30/25- Mild left lower lobe pneumonia. Trace bilateral pleural effusions.
CT Scan: CT head 01/2025: There is a ventricular shunt present which enters from the right superior frontal region, with tip of the shunt to the junction of the inferior frontal horn of the right lateral ventricle and the third ventricle. There is
decreased size of the right lateral ventricle when compared to the left, and slight shift of the septum pellucidum toward the left, and findings suggest peripheral arterial shunting of the right lateral ventricle when compared to the left. There is
no evidence of acute intracranial hemorrhage. In the inferior aspect of the left thalamus, there is a small focal area of decreased density measuring 1.5 cm transverse by 0.8 cm AP, compatible with encephalomalacia from previous region of
intracranial hemorrhage. No abnormal extra-axial collection is identified. There is 80% opacification of the sphenoid sinus, slightly improved from previous examination. The rest of the paranasal sinuses appear clear. The mastoid air cells appear
clear.
AP 02/23/25- 2 small nephroliths within the posterior upper pole the right kidney. As described, evidence for blood products/hematoma within the calyces of the upper pole of the right kidney. Wall of the urinary bladder appears mildly diffusely
thickened, which may be on the basis of incomplete distention, but correlate clinically to exclude cystitis. Mild hepatomegaly with no focal hepatic lesion. Thickening of the wall the duodenum extending from the duodenal bulb contiguously through
the distal third portion, with stranding of the adjacent fat. Main differential considerations of primary duodenitis, versus reactive duodenitis from pancreatitis. There is mild stranding of the fat adjacent to the pancreatic head with no focal
collection. Mild to moderate subcutaneous edema greatest in the lateral flanks.
Echo: 05/01/25- Normal biventricular size and systolic function without regional wall motion abnormality. LV ejection fraction is 55-60% by visual assessment. Normal diastolic function. No significant valvular disease. No obvious vegetation. No
prior study available for comparison.
Reports and relevant images were personally reviewed.
Subjective Data
-
Date of Service:
Date of Service: May 07, 2025
Chief Complaint: Pulmonary Follow Up and Dyspnea Follow Up
Subjective:
Denies any worsening shortness of breath, chest pain, chest tightness, productive cough, or abdominal pain
Review of Systems
General: Other (Per HPI)
Objective Data
Data Reviewed
Vital Signs / I&O:
Vital Signs
Temp Pulse Resp BP Pulse Ox
97.5 F 98 34 153/94 91
05/07/25 07:23 05/07/25 06:00 05/07/25 06:00 05/07/25 06:00 05/07/25 06:00
Intake and Output
05/06/25 05/07/25 05/08/25
06:59 06:59 06:59
Intake Total 4680.4 / 4680.4 1370 / 1370
Output Total 2795 / 2795 2325 / 2325 250 / 250
Balance 1885.4 / 1885.4 -955 / -955 -250 / -250
SaO2: 91
Nasal Cannula flow liters per minute: 8
Physical Exam
General: Respiratory Distress (n) and Comfortable
HEENT: Normocephalic, Anicteric, Moist Mucous Membranes and Other (Thick neck)
Cardiovascular: Regular Rhythm
Respiratory: Wheeze (n), Crackles (Few basilar), Rhonchi (n), Non-Labored Respirations and Accessory Resp Muscle Use
GI: Soft, Non Distended and Non Tender
Neurology: Awake, Alert and No Motor Deficits
Skin: Warm, Good Color, Cyanosis (n), Jaundice and Rash
Labs/Micro/Reports
Lab Data
05/07/25 04:55
05/07/25 04:55
Microbiology
05/06/25 08:16 Blood/Venous Blood Culture - Preliminary
Positive culture in progress
05/06/25 08:16 Blood/Venous Gram Stain - Preliminary
05/05/25 03:34 Blood/Venous Blood Culture - Preliminary
No Growth in 48 hours- Final report to follow
05/04/25 03:13 Blood/Venous Blood Culture - Preliminary
No Growth in 72 hours- Final report to follow
05/06/25 13:19 Synovial Fluid Gram Stain - Preliminary
04/30/25 19:46 Blood/Venous Blood Culture - Final
Staph aureus MRSA
04/30/25 19:46 Blood/Venous Gram Stain - Final
05/04/25 09:25 Endotracheal Respiratory Culture - Final
Staph aureus MRSA
05/04/25 09:25 Endotracheal Gram Stain - Final
05/03/25 04:25 Blood/Venous Blood Culture - Preliminary
Staph aureus MRSA
05/03/25 04:25 Blood/Venous Gram Stain - Preliminary
05/02/25 03:16 Blood/Venous Blood Culture - Preliminary
Staph aureus MRSA
05/02/25 03:16 Blood/Venous Gram Stain - Preliminary
05/01/25 17:45 Blood/Venous Blood Culture - Final
Staph aureus MRSA
05/01/25 17:45 Blood/Venous Gram Stain - Final
04/30/25 19:46 Blood/Venous Blood Culture - Final
Staph aureus MRSA
04/30/25 19:46 Blood/Venous Gram Stain - Final
[2025-05-07] MEDS: COREG 12.5 MG PO ×2 (09:04→21:39)
[2025-05-07] MEDS: PROTONIX IV 40 MG IV (09:06)
[2025-05-07] MEDS: MIRALAX PO (09:06)
[2025-05-07] MEDS: NSS (PRESERVATIVE FREE) 10 ML IV (09:06)
[2025-05-07] MEDS: DESENEX/MITRAZOL/ZEASORB 1 APPLIC TOPICAL ×2 (09:07→21:39)
[2025-05-07] MEDS: HYDROPHOR 1 APPLIC TOPICAL (09:08)
--- NOTE | 2025-05-07 09:08 | W.PN.ID1 ---
Date of Service
Date of Service: May 07, 2025
Today's Communication
See below
Assessment / Plan
Sustained complicated MRSA bacteremia
Pulmonary septic emboli vs cavitary MRSA PNA
Septic right knee
R second toe gangrene
Hypoxemic respiratory failure, self extubated 05/05
Fever persists
Leukocytosis -improving
SINDY resolved
Substance abuse (UDS with fentanyl, amphetamine, methamphetamine, benzodiazepine)
Right second toe infection/gangrene; suspected osteomyelitis
Hx CVA (thalamic bleed) with right hemiplegia
Chronic back pain
Recommendations:
TTE without noted valvular disease.
05/06/25 JEAN: NO VALVULAR VEGETATION
Serial blood cultures to assess ongoing bacteremia
blood cx's from 05/06 turned positive
Sputum cx MRSA
05/06 R knee fluid: 41,220 WBC, 54% polys, neg crystals.
Synovial cx pending; gram stain: mod GPC
Today, new ecchymosis with blood blisters right knee/calf, posterior calf concerning for necrotizing tissue
Ortho requesting MRI of RLE. However, awaiting to see if TURN SEWER shunt compatible with MRI.
Appreciate Ortho. Spoke to Ortho, regarding washout of knee sooner than later for source control. He will probably take him to OR tonight.
Surgical Consult to evaluate for necrotizing soft tissue/fasciitis.
Also to coordinate with Podiatry for toe amputation tonight.
In the meantime, place midline and dc tri-catheter due to persistent bacteremia.
DC Vancomycin.
Start high dose daptomycin. Monitor CK
Also will give linezolid as toxin inhibitor as well as for MRSA PNA, since Dapto does not penetrate lung tissue.
Guarded prognosis.
����������������������������������������������������������
Chief Complaint
-: Clinical Sepsis and Bacteremia
Subjective / Review of Systems
wants pain meds.
Right thigh/knee painful.
Vital Signs / Physical Exam
Vital Signs
Vital Signs
Temp Pulse Resp BP Pulse Ox
97.5 F 98 34 153/94 91
05/07/25 07:23 05/07/25 06:00 05/07/25 06:00 05/07/25 06:00 05/07/25 08:23
Physical Exam
Constitutional: Acutely Ill and Obese
Eyes: Sclera Anicteric
Cardiovascular: S1/S2 (tacycardic)
Pulmonary: Rhonchi
Gastrointestinal: Soft, Non Tender and Non Distended
Extremities: Edema (RLE >LLE) and Other (Posterior right thigh now ecchymotic with hemorrhagic blisters; below knee and calf ecchymotic with oozing bloody necrotic blister)
Musculoskeletal: Joint Effusion (Right knee)
Wound: Other (right 2nd toe dressing dry)
Neurological: Awake and Alert
Objective Data
Lab Data
Lab Results
05/07/25 04:55
05/07/25 04:55
PT 20.0 Sec (11.4-14.6) H 04/30/25 19:46
INR 1.65 04/30/25 19:46
APTT Cancelled 05/04/25 14:45
Estimated Creat Clear > 125 ml/min 05/07/25 04:55
Lactic Acid 1.9 mmol/L (0.7-2.0) 05/01/25 12:18
Total Bilirubin 1.8 mg/dl (0.2-1.3) H 05/01/25 12:18
AST 38 U/L (17-59) 05/01/25 12:18
ALT 17 U/L (0-50) 05/01/25 12:18
Alkaline Phosphatase 71 U/L (38-126) 05/01/25 12:18
Most recent labs reviewed.
Micro Results:
05/06/25 08:16 Blood Culture - Preliminary
Blood/Venous Positive culture in progress
Gram Stain - Preliminary
05/07/25 04:55 Blood Culture - Pending
Blood/Venous
05/05/25 03:34 Blood Culture - Preliminary
Blood/Venous No Growth in 48 hours- Final report to follow
05/04/25 03:13 Blood Culture - Preliminary
Blood/Venous No Growth in 72 hours- Final report to follow
05/06/25 13:19 Body Fluid Culture - Pending
Synovial Fluid Gram Stain - Preliminary
04/30/25 19:46 Blood Culture - Final
Blood/Venous Staph aureus MRSA
Gram Stain - Final
05/04/25 09:25 Respiratory Culture - Final
Endotracheal Staph aureus MRSA
Gram Stain - Final
05/03/25 04:25 Blood Culture - Preliminary
Blood/Venous Staph aureus MRSA
Gram Stain - Preliminary
05/02/25 03:16 Blood Culture - Preliminary
Blood/Venous Staph aureus MRSA
Gram Stain - Preliminary
05/01/25 17:45 Blood Culture - Final
Blood/Venous Staph aureus MRSA
Gram Stain - Final
04/30/25 19:46 Blood Culture - Final
Blood/Venous Staph aureus MRSA
Gram Stain - Final
05/01/25 01:32 Urine Culture - Final
Urine Yeast
05/01/25 01:17 Blood Parasites Smear - Final
Blood/Venous
04/30/25 23:02 Influenza Types A & B (GIORGIO) - Final
Nasal Swab Negative for Influenza A & B, NAAT
Negative results must be combined with clinical observations
and patient history.
Nucleic Acid Amplification test (NAAT)performed on the
[employer] platform.
Imaging:
05/02/25 CT RLE: Subcutaneous stranding within the soft tissues of the anterior right thigh, and [id number] anterior soft tissues. No drainable abscess is appreciated. Moderate suprapatellar joint effusion, with areas of loculation.
05/01/2025 ECHO (TTE): EF 55%. Normal biventricular size and systolic function. No significant valvular disease. No obvious vegetations.
05/01/2025 CXR (portable): bilateral interstitial and airspace disease noted which may reflect pulmonary edema or pneumonia. Small bilateral pleural effusions noted. Please see full dictation for additional detail.
05/01/2025 Abdominal x-ray. Enteric tube noted in stomach.
05/01/2025 Renal ultrasound: unremarkable renal ultrasound without hydronephrosis, contour deforming solid renal mass or echogenic shadowing foci to suggest renal calculi. Bilateral pleural effusions noted.
05/01/2025 Duplex ultrasound lower extremity: no evidence of DVT in the bilateral lower extremities
04/30/2025 X-ray right foot: soft tissue injury versus ulceration involving the second digit with soft tissue swelling. The cortex of the distal phalanx is indistinct and the possibility of osteomyelitis cannot be excluded. There is soft tissue
swelling of the first digit. No radiographic evidence to suggest osteomyelitis. Please see full dictation for additional detail.
Care Review
Plan reviewed with: Nurse (Domenica) and Physician (Drs. Oakes, Leona)
[2025-05-07] MEDS: NOVOLOG FLEXPEN-LOW RESISTANCE SC ×3 (09:09→16:43)
--- NOTE | 2025-05-07 09:40 | WOUNDNOTE ---
[facility] RN note: Patient's R medial upper calf near knee and R medial thigh with discolored dark red ecchymotic areas with several blood blisters. R medial distal knee blister broken and appears to be about 1.3cm deep. Moderate cloudy bloody drainage.
Notified Dr. Oakes and Dr. Mcdaniel new finding via [employer] text including pictures concerned about infection and requested surgeon evaluation. Also tiger texted Dr. Delgadillo who confirmed he was not washing out R medial upper calf area, he was
addressing patient's R septic knee joint. Dr. Oakes to consult surgeon regarding R medial upper calf/thigh area of concern. R lateral calf with small dermal pink ulcer, slightly smaller than last week. R 2nd toe necrotic toe mostly dry, no drainage
on dressing. R plantar hindfoot with small dry scab with local red skin. No drainage. Updated Dr. Burris re: R leg, R foot and necrotic toe skin status. Skin on heels and sacrum intact. Protective sacral shaped silicone border foam dressing
applied to sacrum. Patient turned to L semi side lying position with help from [facility] RN assistant account executive Ilene. R heel off bed with pillow. L heel off bed with air chair cushion. t/c SPD and ordered a bariatric air chair cushion. Updated and discussed with
CHAYA Wilder. Will follow as needed.
--- NOTE | 2025-05-07 09:42 | WOUNDNOTE ---
[facility] RN note: Patient's R medial upper calf near knee and R medial thigh with discolored dark red ecchymotic areas with several blood blisters. R medial distal knee blister broken and appears to be about 1.3cm deep. Moderate cloudy bloody drainage.
Notified Dr. Oakes and Dr. Mcdaniel new finding via [employer] text including pictures concerned about infection and requested surgeon evaluation. Also tiger texted Dr. Delgadillo who confirmed he was not washing out R medial upper calf area, he was
addressing patient's R septic knee joint. Dr. Oakes to consult surgeon regarding R medial upper calf/thigh area of concern. R lateral calf with small dermal pink ulcer, slightly smaller than last week. R 2nd toe gangrene dry. R plantar hindfoot with
dry pustule with local red skin. No drainage. Skin on heels and sacrum intact. Protective sacral shaped silicone border foam dressing applied to sacrum. Patient turned to L semi side lying position with help from [facility] RN medical assistant dermatology Ilene. R heel off
bed with pillow. L heel off bed with air chair cushion. t/c SPD and ordered a bariatric air chair cushion. Updated and discussed with CHAYA Wilder. Will follow as needed.
[2025-05-07] MEDS: DUONEB 3 ML INH ×2 (09:46→20:11)
--- NOTE | 2025-05-07 09:47 | WOUNDNOTE ---
RIGHT MEDIAL THIGH/LOWER LEG
--- NOTE | 2025-05-07 09:47 | WOUNDNOTE ---
RIGHT MEDIAL/POSTERIOR THIGH/LOWER LEG
--- NOTE | 2025-05-07 09:48 | WOUNDNOTE ---
RIGHT PLANTAR FOOT
--- NOTE | 2025-05-07 09:48 | WOUNDNOTE ---
RIGHT SECOND TOE
--- NOTE | 2025-05-07 09:49 | WOUNDNOTE ---
RIGHT SECOND TOE
--- NOTE | 2025-05-07 09:49 | WOUNDNOTE ---
RIGHT LOWER LEG
--- NOTE | 2025-05-07 09:50 | WOUNDNOTE ---
RIGHT LATERAL LOWER LEG
--- NOTE | 2025-05-07 09:50 | WOUNDNOTE ---
RIGHT LATERAL LOWER LEG
--- NOTE | 2025-05-07 09:51 | WOUNDNOTE ---
RIGHT PROXIMAL MEDIAL LOWER LEG
--- NOTE | 2025-05-07 09:52 | WOUNDNOTE ---
RIGHT MEDIAL PROXIMAL LOWER LEG
--- NOTE | 2025-05-07 09:52 | WOUNDNOTE ---
BILATERAL LOWER LEGS
--- NOTE | 2025-05-07 09:52 | WOUNDNOTE ---
LEFT LATERAL LOWER LEG
--- NOTE | 2025-05-07 09:53 | WOUNDNOTE ---
RIGHT LATERAL LOWER LEG
--- NOTE | 2025-05-07 09:56 | WOUNDNOTE ---
RIGHT MEDIAL DISTAL KNEE
--- NOTE | 2025-05-07 09:57 | WOUNDNOTE ---
RIGHT MEDIAL DISTAL KNEE
[2025-05-07] MEDS: CUBICIN 20 MG IV (10:16)
--- NOTE | 2025-05-07 10:45 | WOUNDNOTE ---
[facility] RN note: Sarthak texted Dr. Burris who confirmed she reviewed patient's LENNY report. As per Dr. Burris 'his lenny was low but his waveforms are multiphasic. we can certainly consult vascular to take a look pre toe amp, otherwise we can get them
on board if the toe amp does not appear to be healing'. Forwarded Dr. Burris's tiger text to Dr. Oakes; defer to hospitalist if and when to consult vascular.
--- NOTE | 2025-05-07 10:56 | CON.GS ---
Addendum entered and electronically signed by Osei Chi MD 05/07/25 15:03:
I saw and examined the patient independently.
The resident's documentation was reviewed and I agree with the note, assessment and plan except where noted below.
Comment: This is a 44-year-old male with polysubstance abuse, stroke (right hemiplegia), acute on chronic kidney disease, chronic respiratory insufficiency and now MRSA positive bacteremia with right knee septic arthritis as well as a right toe
wound. He has been here for several days and is currently being worked up for possible toe amp and right knee washout. He does have an ascending infection along the right lower extremity for which general surgery was consulted. It is tender to
palpation. I did review his CT scan from 05/02/2025 which did not show any crepitus or formed abscess in the subcutaneous layers but potentially this has evolved since then. MRSA is not a typical pathogen for necrotizing fasciitis but could be
causing cellulitis or necrotizing soft tissue infection.
General surgery happy to assist with Ortho/podiatry.
Continue IV antibiotics.
Risks/Benefits/Alternatives, expected postoperative course and possible complications (bleeding, infection, injury to surrounding structures, acute/chronic pain) discussed at length. Patient wishes to proceed with surgery. All questions answered.
Consent obtained.
I spent 60 minutes in total for the care of this patient today including direct patient care and counseling, reviewing labs, imaging, coordination of care, as well as documentation.
Original Note:
Consultation
-
Date/Time Consultation Performed: 05/07/25 10:50AM
Performing Provider: Osei Hill MD
Reason for Consultation: right side septic wound
Medical History
-
Chief Complaint: right side wound with blood discharge
History of Present Illness:
Patient has a right side knee pain with open wound, which is associated with pain, the wound is started all of a sudden with a small pimple size and progressively increased in the nature. Pain is aggravated by movement of right knee and not reduced
by pain medications. Not associated with fever, chills, trauma, nail scratch, insect bite.
Past Medical History
Past Medical History: HTN and Other (Acute narcotic withdrawal, Cellulitis of foot without toes, Hemiplegia with hemiparesis following other non traumatic intracranial heamorrhage affecting right side.Acquired hydrocephalus, Obesity, chronic venous
stasis dermatitis. )
Past Surgical History: Other (BODY TECHNICIAN Shunt placement , Right knee arthroscopy. )
Social History
Tobacco: Former Smoker
Alcohol: None
Drug: Former User (last use January 2025)
Family History
Family History: Reviewed & Not Pertinent
Allergies / Home Medications
Allergy/AdvReac Type Severity Reaction Status Date / Time
Iodinated Contrast Media Allergy Unknown Nausea / Unverified 05/02/25 13:42
Vomiting
clindamycin Allergy Unknown Verified 04/30/25 16:59
Corticosteroids Allergy Unknown Verified 04/30/25 16:59
(Glucocorticoids)
diphenhydramine HCl (From Allergy Unknown Verified 04/30/25 16:59
Benadryl)
hydrocodone bitartrate (From Allergy vomiting Verified 04/30/25 22:45
Vicodin)
hydroxyzine (Hydroxyzine) Allergy Unknown Verified 04/30/25 16:59
peach Allergy Tongue Verified 04/30/25 16:59
Swelling
Penicillins Allergy Shortness Verified 04/30/25 16:59
of Breath;
tolerated
cefepime
sulfamethoxazole (From Allergy Unknown Verified 04/30/25 16:59
Bactrim)
tramadol Allergy 'throat Verified 04/30/25 16:59
swells up'
trimethoprim (From Bactrim) Allergy Unknown Verified 04/30/25 16:59
�Medication �Instructions �Recorded �Confirmed �Type
acetaminophen 500 mg tablet 1,000 mg (2 x 500 mg) PO Q8 PRN 03/06/25 04/30/25 Rx
(Tylenol Extra Strength) mild pain #0 tabs
carvedilol 25 mg tablet 25 mg PO BID Blood pressure #0 tabs 03/06/25 04/30/25 Rx
losartan 50 mg tablet 100 mg (2 x 50 mg) PO DAILY Blood 03/06/25 04/30/25 Rx
pressure #0 tabs
pantoprazole 40 mg tablet,delayed 40 mg PO DAILY Gastrointestinal 03/06/25 04/30/25 Rx
release (Protonix) issue #30 tabs
spironolactone 50 mg tablet 50 mg PO DAILY Blood pressure #0 03/06/25 04/30/25 Rx
tabs
clonidine HCl 0.1 mg tablet 0.1 mg PO DAILY Blood pressure 04/30/25 04/30/25 History
Review of Systems
-
History Source: Patient
Respiratory: No Symptoms and Trouble Breathing
Cardiac: No Symptoms
Musculoskeletal: Joint Pain (right side joint pain radiating from below the knee radiating towards right thigh. )
Skin: Other (right side below the knee open wound present. )
Neurological: Weakness
A 10 point review of systems was completed, and was negative except as per HPI.
Physical Exam
Vital Signs
Temp Pulse Resp BP Pulse Ox
97.5 F 96 28 154/88 94
05/07/25 07:23 05/07/25 10:30 05/07/25 10:30 05/07/25 10:00 05/07/25 10:50
05/06/25 05/07/25 05/08/25
06:59 06:59 06:59
Actual Weight 135.8 kg 137.7 kg
Body Mass Index (BMI) 37.9
Lab Results
05/07/25 04:55
05/07/25 04:55
WBC 24.2 10^3/uL (4.8-10.8) H 05/07/25 04:55
Hgb 10.6 g/dL (13.0-18.0) L 05/07/25 04:55
Hct 33.3 % (39.0-52.0) L 05/07/25 04:55
Plt Count 287 10^3/uL (130-400) 05/07/25 04:55
Abs Immat Gran (auto) 1.6 10^3/uL (0-0.05) H 05/07/25 04:55
Neutrophils % 80.6 % (42.2-75.2) H 05/07/25 04:55
Physical Exam
General: Pain and Other (nasal cannula with 10 liters/min )
HEENT: Anicteric and Moist Mucous Membranes
Respiratory: Wheezes and Other (crackles (few basilar), rhonchi (n))
Cardiac: S1/S2 and Regular Rhythm
GI: Non Tender
Skin: Other (right side below the knee- medial side open wound present (overall 3x3cm), blood from the base of the wound, wam, tender, blanching, serpangious rash and radiating towards the thigh. Restriction of movement. Right knee arthroscopy scar
present.)
Neuro: AO x 3
Hematologic/Lymphatic: Lymphadenopathy (right side inguinal LN+ )
Psych: Calm
Assessment / Plan
-
49 yrs old wit past h/o polysubstance abuse, prior CVA (thalamic bleed, right hemiplegia), essential HTN, MRSA positive bacteremia, Acute kidney injury, chronic respiratory failure presented with right side knee pain with wound
# Right side knee septic arthritis:
AFebrile, tachypnea,
WBC count ---> 28.3-->24.2
On 05/06: SYnovial fluid= Staph.aureus positive.
blood culture - positive for gram stain.
MRSA Positive.
Right ankle brachial index of 0.75 and left ankle brachial index of 0.83. Toe brachial indices were unobtainable. Doppler waveforms at the ankle bilaterally show artifacts, but remain multiphasic.
CT Scan Lower extremity on 05/02/25:
1. Subcutaneous stranding within the soft tissues of the anterior right thigh, and [id number] anterior soft tissues. No drainable abscess is appreciated.
2. Moderate suprapatellar joint effusion, with areas of loculation.
3. Moderate pelvic free fluid of unknown etiology.
4. Right inguinal and right iliac chain lymphadenopathy, which may be reactive, neoplastic enlargement is not excluded.
- Plan : for the right knee fluid aspiration.
- pain medication.
--- NOTE | 2025-05-07 10:59 | PTCARENOTE ---
Addendum entered by Tina Yu RN 05/07/25 11:13:
nebulizer requested and given by resp therapist for wheezing and shortness of breath.pt states his breathing feels better after neb.
Original Note:
wound care done by Monika Metzger. pt npo for possible OR later today. see nursing assessment and flowsheet.
[2025-05-07] MEDS: ZYVOX 600 MG PO ×2 (11:00→21:40)
--- NOTE | 2025-05-07 11:19 | PTCARENOTE ---
recieved pt from [facility] to IMU at about 0745. unable to maintain sats above 80. pt requiring manual bag ventilation via trach as he was having increased feeling of dyspnea. attemted suction several times for small amount thin blood tinged
secretions. discussed with dr Sheffield who saw pt at bedside and determination made to sent pt to icu. pt moved to room 3360. report given to recieving Rn.
[2025-05-07] MEDS: TYLENOL ORAL SOLUTION PO ×3 (12:40→23:20)
[2025-05-07] MEDS: MYCOSTATIN ORAL SUSPENSION PO ×2 (12:40→21:12)
[2025-05-07 12:57] LABS: Glucose - Point of Care 100 mg/dl (70-99)
--- NOTE | 2025-05-07 14:55 | CM ---
Blood Cultures 05/06/25 + for MRSA, R knee fluid analysis 05/06/25 + for Staph, 10L O2 attempt to wean, IV/AB, OR tomorrow for amputation of R 2nd toe. High Risk. Discharge POC: TBD.
[2025-05-07] MEDS: NSS 250 IV (15:32)
[2025-05-07 16:52] LABS: Glucose - Point of Care 104 mg/dl (70-99)
[2025-05-07 17:19] LABS: Glucose - Point of Care 106 mg/dl (70-99)
--- NOTE | 2025-05-07 17:25 | PTCARENOTE ---
pt called to OR. report given to Adonay.
--- NOTE | 2025-05-07 18:49 | W.SUR.PREOP ---
Pre-Operative Surgical Note
-
I have examined this patient prior to the performance of the scheduled procedure.
The patient's condition is unchanged from the time of the current History and
Physical and the patient is able to undergo the scheduled procedure.
--- NOTE | 2025-05-07 18:49 | W.IMMPOSTOP ---
Surgical Immed Post Op Note
-
Primary Surgeon: Osei Chi MD
Assisting Surgeon: Liborio Delgadillo MD
Pre-op Diagnosis: Necrotizing soft tissue infection of the right lower extremity x 2
Post-op Diagnosis: Same
Procedure Performed: Incision and drainage of necrotizing soft tissue infection of the right lower extremity x 2 (medial calf: 5 x 7 cm x 2 cm deep; medial thigh 3 x 3 x 2 cm)
Anesthesia Type: General
Specimen / Cultures: Right lower extremity abscess for Gram stain and culture aerobic and anaerobic.
Estimated Blood Loss: 11 for my portion of the procedure
Complications: None
Operative Findings: Patient with necrotizing soft tissue infections of the right lower extremity. The medial proximal calf was significantly larger and measured roughly 5 x 7 x 2 cm. The overlying skin for much of this wound appeared somewhat
viable so was left intact. The pus emanating from this wound was cultured. There was some necrotic tissue that was debrided back with a combination of blunt and sharp dissection. There is a second wound on the distal medial thigh separate from
the previous 1 that was incised and opened. Similarly pus was encountered and evacuated. Necrotic tissue was debrided back with a combination of blunt and sharp dissection. These cavities did not appear to be communicating with each other. The
underlying tissue appeared to be healthy. After washing the wounds out and achieving hemostasis. The wounds were packed wet-to-dry with Dakin's quarter percent soaked Kerlix and covered with ABDs followed by Brody wrap. See Dr. Delgadillo's separate
note for additional details regarding the knee washout.
--- NOTE | 2025-05-07 19:21 | OR.RPT ---
Operative Report
Operative Report
Date
05/07/2025
Anesthesia Type:
General
Operative Indications:
Right septic knee
Operative Findings :
Significant purulence expressible from arthrotomy right knee
Complications:
None
Implants:
None
Procedure and Technique:
Irrigation debridement with arthrotomy right septic knee
INDICATIONS FOR PROCEDURE:
Patient is a 50-year-old male history of polysubstance abuse admitted to the hospital and found to have aspiration of the right knee consistent with septic arthritis. I discussed postsurgical nonsurgical options. Ultimately did proceed with
surgical intervention. Discussed risks benefits and alternatives to surgery. We discussed the usual expected perioperative postoperative course. No guarantees were given. After discussion written informed consent was obtained.
OPERATIVE PROCEDURE:
Patient was seen identified in the preoperative holding area. Operation was marked. All questions were addressed and answered. General surgery also saw the patient was consented for irrigation debridement of right lower extremity wounds for
source control. Patient was taken the operating room where general anesthesia was administered. Operative extremity was prepped and draped in normal sterile fashion. Nonsterile tourniquet was applied. Timeout was performed again identifying the
correct operative extremity. Antibiotics were held for cultures. For my part of the case, standard anterior medial parapatellar approach was taken to the right knee. Approximately 14 cm skin incision was made. Sharp dissection was carried
through skin subcutaneous tissue deep fascia layer after tourniquet was inflated. Limited medial parapatellar incision was then made. There was no evidence of infection or fluid collection in the subcutaneous tissues suprapatellar region. Upon
arthrotomy, there was significant purulence noted. Cultures were obtained. Knee was copiously irrigated with 3 L of normal saline solution. Sharp excisional debridement was performed with knife curette and rongeur of deep fascial layer, tendon,
fat pad and subcutaneous tissue. Hemovac drain was placed exiting superior laterally from the knee. tourniquet was deflated and hemostasis was achieved electrocautery. Wound was closed in layered fashion utilizing #1 PDS suture from medial
parapatellar closure. 2-0 PDS suture was used to close subcutaneous layer. Nathaly were used for skin. Sterile dressing was applied consisting of Xeroform, 4 x 4 gauze, ABD Webril Brody bandage. Anesthesia was versed patient was taken to PACU in
stable condition. Postoperative plans will include weightbearing to patient's tolerance operative extremity. Follow-up wound cultures. Monitor drain output. Will follow clinically.
Disposition:
PACU stable condition
[2025-05-07] MEDS: DILAUDID 0.5 MG IV ×2 (19:57→23:57)
[2025-05-07] MEDS: NSS 1000 IV (20:06)
[2025-05-07] MEDS: CATAPRES PO ×2 (21:11→23:20)
[2025-05-07] MEDS: LOVENOX SC (21:11)
[2025-05-07 21:25] LABS: Glucose - Point of Care 103 mg/dl (70-99)
[2025-05-07] MEDS: COLACE 100 MG PO (21:39)
--- NOTE | 2025-05-07 21:57 | PTCARENOTE ---
Received pt from PACU about 20:45. Pt on BiPAP 14/8 with 15L O2; pulse ox 90s. Needed to temporarily take mask off to administer PO meds; pt tolerated the PO meds but desats to 70s very quickly. Notified NUTRITION MANAGER regarding PO meds. holding PO meds
while he's on BiPAP. Pt lungs diminished throughout with insp/pedro wheeze present. Pt back from OR with hemevac in place under jess wrap. Neurovasc checks Q4H. NSS infusing at 100 ml/hr. Pt resting in bed with call finley in reach.
[2025-05-08] VITALS (17 sets, daily range): BP systolic 108–157; BP diastolic 56–88; PULSE 2–102; BMI 38.3
[2025-05-08] MEDS: TYLENOL ORAL SOLUTION PO (03:47)
[2025-05-08 04:51] LABS: Hematocrit 28.7 % (39.0-52.0); Hemoglobin 8.9 g/dL (13.0-18.0); Mean Corp Hgb Conc. 31.0 g/dL (33.0-37.0); Mean Corpuscular Volume 87.2 fL (80.0-94.0); Platelet Count 337 10^3/uL (130-400); Red Cell Dist. Width 16.3 % (11.5-14.5)
--- NOTE | 2025-05-08 04:58 | PTCARENOTE ---
BiPAP mask off and 15L MF placed on pt. Pulse ox 95%. RT at bedside
[2025-05-08 05:13] LABS: Blood Urea Nitrogen 15 mg/dl (9-20); Calcium 7.5 mg/dl (8.4-10.2); Carbon Dioxide 34 mmol/L (22-30); Chloride 103 mmol/L (98-107); Estimated Creatinine Clearance > 125 ml/min; Glucose 111 mg/dl (70-99); Magnesium 1.9 mg/dl (1.6-2.3); Potassium 3.8 mmol/L (3.5-5.1); Sodium 140 mmol/L (135-145); eGFR > 60.00
[2025-05-08] MEDS: ROXICODONE 10 MG PO (05:15)
[2025-05-08] MEDS: CATAPRES 0.2 MG PO ×3 (05:15→23:30)
[2025-05-08 05:18] LABS: Nucleated Red Blood Cells % 0 % (-)
[2025-05-08] MEDS: NSS 1000 IV ×2 (06:21→16:49)
--- NOTE | 2025-05-08 07:28 | W.PN.HOSP.TC ---
Today's Communication/Plan
-
see plan
Assessment / Plan
Assessment / Plan
Mr. Patrice Mera is a 50 yo man with hx polysubstance abuse, prior CVA (thalamic bleed; right hemiplegia), essential HTN, admitted 04/30 with septic shock 2/2 MRSA bacteremia, SINDY with anion gap metabolic acidosis and hypoxemic respiratory failure.
He is found to have septic joint right knee.
Venous Dopplers lower extremity-no DVT noted
Echo 05/01/2025-normal biventricular size and systolic function. EF 55 to 60% no vegetation
CT right lower extremity with contrast-subcutaneous stranding within the soft tissues of the anterior thigh and below the knee. No abscess. Moderate suprapatellar joint effusion with areas of loculation. Moderate pelvic free fluid of unknown
etiology. Right inguinal and right iliac chain lymphadenopathy which may be reactive, neoplastic enlargement is not excluded.
Chest x-ray reviewed by me-bilateral infiltrates/edema
LENNY-right LENNY 0.75 and left LENNY 0.83 TBI were obtainable. Doppler waveforms at the ankle bilaterally shows artifacts but remain multiphasic
Renal ultrasound-unremarkable renal ultrasound. Bilateral pleural effusions
CT PE study-no evidence of central PE. Extensive bilateral cavitary nodular opacities compatible with bilateral cavitary pneumonia likely based on septic emboli. Small to moderate bilateral pleural effusions. Gynecomastia. Small amount of
ascites in the right upper quadrant adjacent to the liver.
JEAN 05/06/25
SUMMARY
1. Hyperdynamic left ventricular function.
2. Left ventricular systolic function is greater than 75% by visual assesment.
3. No evidence of any valvular vegetations.
4. Trace mitral valve regurgitation.
Acute respiratory failure
VDRF
-patient was intubated on admission for multiple reasons in setting of septic shock, pneumonia, septic emboli
-CTA without PE
-s/p self extubation on 05/05
-cleared for diet
-remains on 10L midflow, wean as able
MRSA Bacteremia
Septic Shock - patient was on Levo, Vaso, Epi, Giapreza; now off pressors
Septic Arthritis
Necrotizing Fasciitis
- blood cultures have not yet cleared, positive from 05/06
- JEAN 05/06 without e/o vegetation
- right knee joint aspirate positive for MRSA 05/06
- exam 05/07 with new concern for necrotizing fasciitis right medial thigh and calf
- 05/07 antibiotics changed to IV Daptomycin, oral Linezolid
- appreciate general surgery and ortho, patient is s/p I&D of necrotizing soft tissue infection and washout right knee
Right second toe infection Gangrene
-appreciate ID and Podiatry
-antibiotics as above
-arterial US with multiphasic waveforms
-wound care betadine soaked gauze to toe - change every day
# Acute kidney injury - ATN in setting of septic shock
Metabolic Acidosis
-Patient briefly required CRRT but could not tolerate long
-Ultrasound of the kidneys without obstruction
-appreciate Renal
- SINDY now resolved
- haney discontinued on 05/06
# Anasarca
# Hypoalbuminemia
-bumex on hold
# Drug abuse urine drug screen positive for Fentanyl, Benzos, Amphetamines and Methamphetamines
Patient was discharged to a rehab last admission however he stayed there only for 2 days and signed himself out
# Multidrug resistant hypertension-currently blood pressure stable without medicines. Watch off of medicines.
Patient was on Coreg, losartan, clonidine, Aldactone as outpatient.
-*resume 1/2 dose Coreg (05/07) - monitor BP, may resume full dose later
-patient was started on standing Clonidine in the ICU post precedex - decrease to q8h
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 Transferred to [place] . Pt says he was there for 3 months and has weakness of right side and facial droop. Pt appropriately responding.
s/p FISH FROG OR [facility] shunt at [place]
*confirmed cannot get MRI here given shunt
#Chronic back pain
#Morbid obesity with a BMI of 35- Weight loss recommended
#History of nephrolithiasis
#Possible sleep apnea-needs outpatient study as OP.
#ADHD
#Hepatic steatosis per prior imaging-outpatient follow-up
# Active smoker-cessation counseling when able
#DVT prophylaxis-Lovenox
#Full code
patient's daughter, Any, updated
51 minutes spent on patient care
Anticipated Discharge: > 48 hours
Subjective/Interval History
-
Date of Service: May 08, 2025
patient is sitting up, eating breakfast
Objective Data
-
Labs:
Laboratory Results
05/08/25
04:21
WBC 23.7 H
Hgb 8.9 L
Hct 28.7 L
Plt Count 337
Sodium 140
Potassium 3.8
Chloride 103
Carbon Dioxide 34 H
BUN 15
Creatinine 0.8
Glucose 111 H
Calcium 7.5 L
Vital Signs:
Vital Signs
Temp Pulse Resp BP Pulse Ox
99.4 F 92 17 157/88 92
05/08/25 02:38 05/08/25 05:15 05/08/25 04:00 05/08/25 05:15 05/08/25 04:00
I&O
05/07/25 05/08/25 05/09/25
06:59 06:59 06:59
Intake Total 1370 / 1370 1350 / 1350
Output Total 2325 / 2325 1025 / 1025
Balance -955 / -955 325 / 325
Review of Systems
-
History Source: Patient
All other systems: Reviewed and negative
Physical Exam
-
General: Obese and Other (on 10L midflow, mildly tachypneic )
HEENT: PERRLA
Respiratory: Negative Wheezes
Cardiac: Regular Rhythm and S1/S2
GI: Soft and Nontender
Musculoskeletal: Other (right knee swollen and tender )
Neuro: AO x 3 and Other (expressive aphasia, right hemiparesis )
Psych: Calm
Data Reviewed
-
Diagnostic Radiology: Report Reviewed by me
Labs: Labs Reviewed by me
[2025-05-08 07:36] LABS: Glucose - Point of Care 119 mg/dl (70-99)
--- NOTE | 2025-05-08 07:52 | W.PN.GS2 ---
Documented by User: Linda Colindres MD, Resident 05/08/25 11:06
Today's Communication / Plan
-
wound dressing
continue the antibiotic.
Assessment / Plan
-
49 yrs old wit past h/o polysubstance abuse, prior CVA (thalamic bleed, right hemiplegia), essential HTN, MRSA positive bacteremia, Acute kidney injury, chronic respiratory failure presented with right side knee pain with wound with s/p day 1 :
Irrigation debridement with arthrotomy right septic knee
# Right side knee septic arthritis s/p Irrigation debridement with arthrotomy right septic knee:
-Afebrile, tachypnea,
-WBC count ---> 28.3-->24.2--> 23.7
On 05/06: Synovial fluid= Staph.aureus positive.
-blood culture - positive for gram stain.
-MRSA Positive.
-Right ankle brachial index of 0.75 and left ankle brachial index of 0.83. Toe brachial indices were unobtainable. Doppler waveforms at the ankle bilaterally show artifacts, but remain multiphasic.
CT Scan Lower extremity on 05/02/25:
1. Subcutaneous stranding within the soft tissues of the anterior right thigh, and [id number] anterior soft tissues. No drainable abscess is appreciated.
2. Moderate suprapatellar joint effusion, with areas of loculation.
3. Moderate pelvic free fluid of unknown etiology.
4. Right inguinal and right iliac chain lymphadenopathy, which may be reactive, neoplastic enlargement is not excluded.
-CT scan from 05/02/2025 which did not show any crepitus or formed abscess in the subcutaneous layers but potentially this has evolved since then.
- continue IV Daptomycin 1000mg IV day 1
- pain medication as tolerable.
Subjective Data
-
Date of Service: May 08, 2025
Patient pain has improved comparing from yesterday. Not associated with fever, chills, bleeding form the wound site.
Objective Data
-
Intake and Output
05/07/25 05/08/25 05/09/25
06:59 06:59 06:59
Intake Total 1370 / 1370 1350 / 1350
Output Total 2325 / 2325 1025 / 1025
Balance -955 / -955 325 / 325
Intake:
Oral fluids 840 / 840
IV fluids (Total) 1350 / 1350
normosol 100 / 100
IV piggybacks 530 / 530
Output:
Drain Output (Total) 0 / 0
Right Upper Leg Hemovac A 0 / 0
Urine, Haney 150 / 150
Urine, Voided 2175 / 2175 1025 / 1025
Other:
How many times incontinent 1
SATURATED amount urine
Vital Signs
Temp Pulse Resp BP Pulse Ox
99.4 F 92 17 157/88 92
05/08/25 02:38 05/08/25 05:15 05/08/25 04:00 05/08/25 05:15 05/08/25 04:00
Lab Results
05/08/25 04:21
05/08/25 04:21
Calcium 7.5 mg/dl (8.4-10.2) L 05/08/25 04:21
Phosphorus 3.2 mg/dl (2.5-4.5) 05/03/25 04:25
Magnesium 1.9 mg/dl (1.6-2.3) 05/08/25 04:21
Total Bilirubin 1.8 mg/dl (0.2-1.3) H 05/01/25 12:18
Direct Bilirubin 1.8 mg/dl (0.0-0.4) H 05/01/25 03:48
AST 38 U/L (17-59) 05/01/25 12:18
ALT 17 U/L (0-50) 05/01/25 12:18
Alkaline Phosphatase 71 U/L (38-126) 05/01/25 12:18
Total Protein 6.0 g/dl (6.3-8.2) L 05/01/25 12:18
Albumin 2.8 g/dl (3.5-5.0) L 05/01/25 12:18
Physical Exam
-
General: Pain and Other (nasal cannula with 10 liters/min )
HEENT: Anicteric and Moist Mucous Membranes
Respiratory: Wheezes and Other (crackles (few basilar), rhonchi (n))
Cardiac: S1/S2 and Regular Rhythm
GI: Non Tender
Skin: Other (right side below the knee- s/p day 1 : Irrigation debridement with arthrotomy right septic knee )
Neuro: AO x 3
Hematologic/Lymphatic: Lymphadenopathy (right side inguinal LN+ )
Psych: Calm
Patient has a haney catheter: No
Patient has a central line: No

Documented by User: Osei Chi MD 05/08/25 15:06
Assessment / Plan
-
49 yrs old wit past h/o polysubstance abuse, prior CVA (thalamic bleed, right hemiplegia), essential HTN, MRSA positive bacteremia, Acute kidney injury, chronic respiratory failure presented with right side knee pain with wound with s/p day 1 :
Irrigation debridement with arthrotomy right septic knee
# Right side knee septic arthritis s/p Irrigation debridement with arthrotomy right septic knee:
-Afebrile, tachypnea,
-WBC count ---> 28.3-->24.2--> 23.7
On 05/06: Synovial fluid= Staph.aureus positive.
-blood culture - positive for gram stain.
-MRSA Positive.
-Right ankle brachial index of 0.75 and left ankle brachial index of 0.83. Toe brachial indices were unobtainable. Doppler waveforms at the ankle bilaterally show artifacts, but remain multiphasic.
CT Scan Lower extremity on 05/02/25:
1. Subcutaneous stranding within the soft tissues of the anterior right thigh, and [id number] anterior soft tissues. No drainable abscess is appreciated.
2. Moderate suprapatellar joint effusion, with areas of loculation.
3. Moderate pelvic free fluid of unknown etiology.
4. Right inguinal and right iliac chain lymphadenopathy, which may be reactive, neoplastic enlargement is not excluded.
-CT scan from 05/02/2025 which did not show any crepitus or formed abscess in the subcutaneous layers but potentially this has evolved since then.
- continue IV Daptomycin 1000mg IV day 1
- pain medication as tolerable.
I saw and examined the patient independently.
The resident's documentation was reviewed and I agree with the note, assessment and plan except where noted below.
Comment: This is a 50-year-old male postoperative day 1 from an arthrotomy for right septic knee and concurrent incision and drainage of 2 right lower extremity abscesses/necrotizing soft tissue infections. Overall clinically improving.
Continue IV antibiotics
Okay for diet per primary.
Follow-up cultures
Continue changing his packing daily with quarter strength Dakin's wet-to-dry.
Surgery will follow peripherally, please call with any questions or concerns.
Patient to follow-up with me (Dr. Chi) 3 to 4 weeks after discharge.
[2025-05-08] MEDS: NOVOLOG FLEXPEN-LOW RESISTANCE SC ×2 (07:59→13:02)
[2025-05-08] MEDS: ZYVOX 600 MG PO ×2 (08:05→19:51)
[2025-05-08] MEDS: PROTONIX 40 MG PO (08:05)
[2025-05-08] MEDS: COLACE 100 MG PO ×2 (08:05→19:51)
[2025-05-08] MEDS: ATIVAN 0.5 MG PO ×2 (08:05→23:30)
[2025-05-08] MEDS: TYLENOL ORAL SOLUTION 650 MG PO ×5 (08:06→23:36)
[2025-05-08] MEDS: COREG 12.5 MG PO ×2 (08:06→19:51)
[2025-05-08] MEDS: HYDROPHOR 1 APPLIC TOPICAL (08:07)
[2025-05-08] MEDS: MIRALAX 17 GRAMS PO (08:07)
[2025-05-08] MEDS: MYCOSTATIN ORAL SUSPENSION 5 ML PO ×3 (08:07→17:50)
[2025-05-08] MEDS: DESENEX/MITRAZOL/ZEASORB 1 APPLIC TOPICAL ×2 (08:07→19:51)
--- NOTE | 2025-05-08 08:34 | W.PN.ID1 ---
Date of Service
Date of Service: May 08, 2025
Today's Communication
Continue Daptomycin and Linezolid
Assessment / Plan
Sustained complicated MRSA bacteremia. persists
Pulmonary septic emboli vs cavitary MRSA PNA
Septic right knee
Right thigh and calf necrotizing soft tissue infection
R second toe gangrene
Hypoxemic respiratory failure, self extubated 05/05
Fever persists
Leukocytosis -improving
SINDY resolved
Substance abuse (UDS with fentanyl, amphetamine, methamphetamine, benzodiazepine)
Right second toe infection/gangrene; suspected osteomyelitis
Hx CVA (thalamic bleed) with right hemiplegia
Chronic back pain
Recommendations:
TTE without noted valvular disease.
05/06/25 JEAN: NO VALVULAR VEGETATION
Continue Serial blood cultures to assess ongoing bacteremia
blood cx's from 05/07 turned positive
Sputum cx MRSA
05/06 R knee fluid: 41,220 WBC, 54% polys, neg crystals.
Synovial cx MRSA
Appreciate Ortho: 05/07 s/p washout of R knee (+PUS). Cx pending
Appreciate general surgery 05/07 s/p I+D right thigh and calf. Cx pending
Eventual toe amp.
Continue Daptomycin IV (d2). Monitor CK
Continue linezolid (d2) as toxin inhibitor as well as for MRSA PNA, since Dapto does not penetrate lung tissue.
����������������������������������������������������������
Chief Complaint
-: Clinical Sepsis and Bacteremia
Subjective / Review of Systems
Has post-op pain
Vital Signs / Physical Exam
Vital Signs
Vital Signs
Temp Pulse Resp BP Pulse Ox
99.4 F 92 17 157/88 92
05/08/25 02:38 05/08/25 05:15 05/08/25 04:00 05/08/25 05:15 05/08/25 04:00
Physical Exam
Constitutional: Acutely Ill, Chronically Ill and Obese
Eyes: Sclera Anicteric
Cardiovascular: Regular Rate and S1/S2
Pulmonary: Coarse and Non Labored
Gastrointestinal: Soft, Non Tender and Non Distended
Extremities: Edema (BLE) and Other (RLE post-op dressing in place)
Wound: Other
Objective Data
Lab Data
Lab Results
05/08/25 04:21
05/08/25 04:21
PT 20.0 Sec (11.4-14.6) H 04/30/25 19:46
INR 1.65 04/30/25 19:46
APTT Cancelled 05/04/25 14:45
Estimated Creat Clear > 125 ml/min 05/08/25 04:21
Lactic Acid 1.9 mmol/L (0.7-2.0) 05/01/25 12:18
Total Bilirubin 1.8 mg/dl (0.2-1.3) H 05/01/25 12:18
AST 38 U/L (17-59) 05/01/25 12:18
ALT 17 U/L (0-50) 05/01/25 12:18
Alkaline Phosphatase 71 U/L (38-126) 05/01/25 12:18
Most recent labs reviewed.
Micro Results:
05/07/25 04:55 Blood Culture - Preliminary
Blood/Venous Positive culture in progress
Gram Stain - Preliminary
05/06/25 13:19 Body Fluid Culture - Preliminary
Synovial Fluid Staphylococcus aureus
Gram Stain - Preliminary
05/08/25 04:21 Blood Culture - Pending
Blood/Venous
05/05/25 03:34 Blood Culture - Preliminary
Blood/Venous No Growth in 72 hours- Final report to follow
05/04/25 03:13 Blood Culture - Preliminary
Blood/Venous No Growth in 4 days- Final report to follow
05/07/25 18:35 Wound Culture - Pending
Knee - Right Gram Stain - Pending
05/07/25 18:35 Wound Culture - Pending
Leg - Right Gram Stain - Pending
05/07/25 18:35 Anaerobic Culture - Pending
Knee - Right
05/07/25 18:35 Anaerobic Culture - Pending
Leg - Right
05/06/25 08:16 Blood Culture - Preliminary
Blood/Venous Positive culture in progress
Gram Stain - Preliminary
04/30/25 19:46 Blood Culture - Final
Blood/Venous Staph aureus MRSA
Gram Stain - Final
05/04/25 09:25 Respiratory Culture - Final
Endotracheal Staph aureus MRSA
Gram Stain - Final
05/03/25 04:25 Blood Culture - Preliminary
Blood/Venous Staph aureus MRSA
Gram Stain - Preliminary
05/02/25 03:16 Blood Culture - Preliminary
Blood/Venous Staph aureus MRSA
Gram Stain - Preliminary
05/01/25 17:45 Blood Culture - Final
Blood/Venous Staph aureus MRSA
Gram Stain - Final
04/30/25 19:46 Blood Culture - Final
Blood/Venous Staph aureus MRSA
Gram Stain - Final
05/01/25 01:32 Urine Culture - Final
Urine Yeast
05/01/25 01:17 Blood Parasites Smear - Final
Blood/Venous
04/30/25 23:02 Influenza Types A & B (GIORGIO) - Final
Nasal Swab Negative for Influenza A & B, NAAT
Negative results must be combined with clinical observations
and patient history.
Nucleic Acid Amplification test (NAAT)performed on the
[employer] platform.
Imaging:
05/02/25 CT RLE: Subcutaneous stranding within the soft tissues of the anterior right thigh, and [id number]-[id number]-[id number] anterior soft tissues. No drainable abscess is appreciated. Moderate suprapatellar joint effusion, with areas of loculation.
05/01/2025 ECHO (TTE): EF 55%. Normal biventricular size and systolic function. No significant valvular disease. No obvious vegetations.
05/01/2025 CXR (portable): bilateral interstitial and airspace disease noted which may reflect pulmonary edema or pneumonia. Small bilateral pleural effusions noted. Please see full dictation for additional detail.
05/01/2025 Abdominal x-ray. Enteric tube noted in stomach.
05/01/2025 Renal ultrasound: unremarkable renal ultrasound without hydronephrosis, contour deforming solid renal mass or echogenic shadowing foci to suggest renal calculi. Bilateral pleural effusions noted.
05/01/2025 Duplex ultrasound lower extremity: no evidence of DVT in the bilateral lower extremities
04/30/2025 X-ray right foot: soft tissue injury versus ulceration involving the second digit with soft tissue swelling. The cortex of the distal phalanx is indistinct and the possibility of osteomyelitis cannot be excluded. There is soft tissue
swelling of the first digit. No radiographic evidence to suggest osteomyelitis. Please see full dictation for additional detail.
[2025-05-08] MEDS: ROXICODONE 20 MG PO ×4 (09:15→23:30)
--- NOTE | 2025-05-08 10:16 | W.PN.PUL.V3 ---
Today's Communication / Plan
-
Wean oxygen
Antibiotics per infectious disease
Eventual toe amputation
Assessment
-
Patient is a 50-year-old male with previous history of opiate use disorder, left thalamic intracranial hemorrhage, presenting to ER with complaints of chest pain, shortness of breath and right toe pain. He arrived in the ER in apparent
respiratory distress with increased work of breathing. He was tried on BiPAP but could not tolerate it. He was admitted here recently in January for opiate use disorder and withdrawal symptoms. UDS is positive for fentanyl, amphetamines,
benzodiazepines. Chest x-ray demonstrating mild left lower lobe pneumonia, he is on HFNC (PAO2 on ABG 73). Admitted to ICU for hypoxemia.
Profound septic shock on 4 pressors: levo, vaso, epi, giapreza--improved now off pressors
Bilateral septic emboli on CAT scan.
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
Acute hypoxic respiratory failure on high flow nasal cannula-->
-Now on daptomycin intubation 05/01
Extubated 05/05/2025.
Metabolic acidosis-resolved
Acute kidney injury, creatinine 6.9-resolved
MRSA endocarditis with pulmonary septic emboli.
Tick bite-negative serology
Possible skin infection/cellulitis
UDS +Fent, benzos, amphetamines
Conditions present [employer]:
Cellulitis left lower extremity
Hypertensive urgency
Opiate abuse with withdrawal
Microscopic hematuria, Albuminuria noted in the urine
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
Leukocytosis- elevated since 2008 labs
Chronic back pain
Morbid obesity with a BMI of 39
History of nephrolithiasis
Possible sleep apnea-needs outpatient study asleep
ADHD
Hepatic steatosis per prior imaging
Active smoker
Plan:
The patient hypoxemic respiratory failure in the setting of severe sepsis with septic emboli noted on CT chest with cavitating lesions
CT chest 05/04/2025: with bilateral significant cavitating infiltrates likely septic emboli versus cavitating pneumonia
Respiratory status has improved-patient self extubated 05/26
Continue supplemental oxygen-attempt to wean-currently on 10 L mid flow-93% saturation
Incentive spirometry
Increase activity
Acapella and mucus clearing devices as needed
Nebulizers as needed-currently not bronchospastic
Cultures reviewed
Persistent staph
Infectious disease following
Tick noted-serology negative
Continue antibiotics, vancomycin discontinued-now on daptomycin and linezolid
Pressors weaned-was on 4 pressors including giapreza-now off with normal function and
Echocardiogram with normal function and no evidence for endocarditis
JEAN 05/06/2025: Hyperdynamic left ventricle. Left ventricular systolic function greater than 75%. No evidence for any valvular vegetations. Trace mitral valve regurgitation.
Podiatry following
Toe amputation pending
Cleared for potential surgery from a pulmonary perspective with moderate risks for perioperative pulmonary complications
Orthopedics following-correspondence reviewed
Irrigation admitted with arthrotomy right septic knee 05/06/2025
Follow-up with
Transfuse as needed
Monitor renal function
SINDY resolved
Nephrology following-correspondence reviewed prophylaxis
DVT-mechanical as well as Lovenox
GI prophylaxis-on pantoprazole
Nutrition
Physical therapy
Outpatient pulmonary [id number] PFTs and sleep study as well as radiographic follow-up
Diagnostic Data
Chest X-Ray: 04/30/25- Mild left lower lobe pneumonia. Trace bilateral pleural effusions.
CT Scan: CT head 01/2025: There is a ventricular shunt present which enters from the right superior frontal region, with tip of the shunt to the junction of the inferior frontal horn of the right lateral ventricle and the third ventricle. There is
decreased size of the right lateral ventricle when compared to the left, and slight shift of the septum pellucidum toward the left, and findings suggest peripheral arterial shunting of the right lateral ventricle when compared to the left. There is
no evidence of acute intracranial hemorrhage. In the inferior aspect of the left thalamus, there is a small focal area of decreased density measuring 1.5 cm transverse by 0.8 cm AP, compatible with encephalomalacia from previous region of
intracranial hemorrhage. No abnormal extra-axial collection is identified. There is 80% opacification of the sphenoid sinus, slightly improved from previous examination. The rest of the paranasal sinuses appear clear. The mastoid air cells appear
clear.
AP 02/23/25- 2 small nephroliths within the posterior upper pole the right kidney. As described, evidence for blood products/hematoma within the calyces of the upper pole of the right kidney. Wall of the urinary bladder appears mildly diffusely
thickened, which may be on the basis of incomplete distention, but correlate clinically to exclude cystitis. Mild hepatomegaly with no focal hepatic lesion. Thickening of the wall the duodenum extending from the duodenal bulb contiguously through
the distal third portion, with stranding of the adjacent fat. Main differential considerations of primary duodenitis, versus reactive duodenitis from pancreatitis. There is mild stranding of the fat adjacent to the pancreatic head with no focal
collection. Mild to moderate subcutaneous edema greatest in the lateral flanks.
Echo: 05/01/25- Normal biventricular size and systolic function without regional wall motion abnormality. LV ejection fraction is 55-60% by visual assessment. Normal diastolic function. No significant valvular disease. No obvious vegetation. No
prior study available for comparison.
Reports and relevant images were personally reviewed.
Subjective Data
-
Date of Service:
Date of Service: May 08, 2025
Chief Complaint: Pulmonary Follow Up and Dyspnea Follow Up
Subjective:
Denies any shortness of breath, still on high flow oxygen, did not tolerate CPAP, no complaints of chest pain or abdominal pain
Review of Systems
General: Other ( Per HPI)
Objective Data
Data Reviewed
Vital Signs / I&O:
Vital Signs
Temp Pulse Resp BP Pulse Ox
98.5 F 92 17 157/88 94
05/08/25 07:15 05/08/25 05:15 05/08/25 04:00 05/08/25 05:15 05/08/25 08:45
Intake and Output
05/07/25 05/08/25 05/09/25
06:59 06:59 06:59
Intake Total 1370 / 1370 1350 / 1350 480 / 480
Output Total 2325 / 2325 1025 / 1025 350 / 350
Balance -955 / -955 325 / 325 130 / 130
SaO2: 94
Nasal Cannula flow liters per minute: 15
Physical Exam
General: Respiratory Distress (n) and Comfortable
HEENT: Normocephalic, Anicteric, Moist Mucous Membranes and Other (Thick neck)
Cardiovascular: Regular Rhythm
Respiratory: Wheeze (n), Crackles (Few basilar), Rhonchi (n), Non-Labored Respirations and Accessory Resp Muscle Use
GI: Soft, Non Distended and Non Tender
Neurology: Awake, Alert and No Motor Deficits
Skin: Warm, Good Color, Cyanosis (n), Jaundice and Rash
Labs/Micro/Reports
Lab Data
05/08/25 04:21
05/08/25 04:21
Microbiology
05/07/25 18:35 Knee - Right Gram Stain - Preliminary
05/06/25 08:16 Blood/Venous Blood Culture - Preliminary
Staph aureus MRSA
05/06/25 08:16 Blood/Venous Gram Stain - Preliminary
05/07/25 18:35 Leg - Right Gram Stain - Preliminary
05/06/25 13:19 Synovial Fluid Body Fluid Culture - Final
Staph aureus MRSA
05/06/25 13:19 Synovial Fluid Gram Stain - Final
05/07/25 04:55 Blood/Venous Blood Culture - Preliminary
Positive culture in progress
05/07/25 04:55 Blood/Venous Gram Stain - Preliminary
05/05/25 03:34 Blood/Venous Blood Culture - Preliminary
No Growth in 72 hours- Final report to follow
05/04/25 03:13 Blood/Venous Blood Culture - Preliminary
No Growth in 4 days- Final report to follow
04/30/25 19:46 Blood/Venous Blood Culture - Final
Staph aureus MRSA
04/30/25 19:46 Blood/Venous Gram Stain - Final
05/04/25 09:25 Endotracheal Respiratory Culture - Final
Staph aureus MRSA
05/04/25 09:25 Endotracheal Gram Stain - Final
05/03/25 04:25 Blood/Venous Blood Culture - Preliminary
Staph aureus MRSA
05/03/25 04:25 Blood/Venous Gram Stain - Preliminary
[2025-05-08] MEDS: CUBICIN 20 MG IV (10:48)
[2025-05-08 12:38] LABS: Glucose - Point of Care 122 mg/dl (70-99)
[2025-05-08] MEDS: COZAAR 25 MG PO (13:05)
--- NOTE | 2025-05-08 16:15 | CM ---
Chart reviewed and patient went to OR yesterday and is for possible OR tomorrow. Patient is on 8 liters of oxygen 93%, patient may benefit from skilled placement.
Plan; To follow with patient progress and assist with discharge planning needs.
--- NOTE | 2025-05-08 17:42 | W.PN.ORTHO ---
Today's Communication / Plan
-
50-year-old male history of polysubstance abuse postop day 1 status post irrigation debridement arthrotomy right septic knee
Weightbearing as tolerated right lower extremity
Medical management per primary team
Continue antibiotics as indicated per primary team/infectious disease
Follow-up intraoperative cultures
Dressing changes okay for dry dressing changes as needed
Drain pulled by myself this evening
Would ultimately like to see patient back in the office in about 2 to 3 weeks for repeat clinical assessment removal of desi
Please reach out any questions or concerns
Subjective
.
.:
Patient reports actually fairly substantial improvement in knee pain today. No acute overnight events reported
Vital Signs and Labs
.
Vital Signs and Labs:
Lab Results
05/08/25 04:21
05/08/25 04:21
Temp Pulse Resp BP Pulse Ox
98.5 F 94 21 129/65 93
05/08/25 07:15 05/08/25 13:00 05/08/25 13:00 05/08/25 12:00 05/08/25 13:00
PT 20.0 Sec (11.4-14.6) H 04/30/25 19:46
INR 1.65 04/30/25 19:46
Physical Exam
-
Musculoskeletal right lower extremity
Dressing in place clean dry intact without significant bloody drainage
Limited knee range of motion
Significant edema noted distally
drain in place without significant output
[2025-05-08] MEDS: NOVOLOG FLEXPEN-LOW RESISTANCE 1 UNITS SC (17:47)
[2025-05-08] MEDS: LOVENOX 40 MG SC (17:48)
[2025-05-08 17:54] LABS: Glucose - Point of Care 156 mg/dl (70-99)
--- NOTE | 2025-05-08 18:43 | PTCARENOTE ---
Pt received in bed @ 0700. AAOx3. Residual right sided weakness from prior CVA/ States 8-07/11 pain in RLE and requesting PRN Roxicodone 20mg to be administered as able. Sleeping in between doses. Received on 15L NC. Weaned to 8L NC; SaO2 93%. SR/ST
on case monitor. Neurovascular assessment Q4H, pedal pulse present with doppler. Compression removed B/L legs for wound care. Medial thigh x2 packed with saline soaked gauze, covered with alginate and abd, wrapped with gauze. Knee dressing
remains. CHAUNCEY wrap reapplied. No bowel movement observed. NSS infusing @ 100ml/hr through right wrist. CHG bed bath performed and linens changed.
[2025-05-08 21:52] LABS: Glucose - Point of Care 139 mg/dl (70-99)
[2025-05-08] MEDS: MYCOSTATIN ORAL SUSPENSION PO ×2 (23:30→23:36)
[2025-05-09] VITALS (19 sets, daily range): BP systolic 93–169; BP diastolic 44–94; PULSE 2–98; BMI 38.8
[2025-05-09] MEDS: NSS 1000 IV (03:21)
[2025-05-09 04:34] LABS: Hematocrit 28.0 % (39.0-52.0); Hemoglobin 8.7 g/dL (13.0-18.0); Mean Corp Hgb Conc. 31.1 g/dL (33.0-37.0); Mean Corpuscular Volume 88.1 fL (80.0-94.0); Nucleated Red Blood Cells % 0 % (-); Platelet Count 389 10^3/uL (130-400); Red Cell Dist. Width 16.4 % (11.5-14.5)
[2025-05-09] MEDS: ROXICODONE 20 MG PO ×3 (04:51→18:45)
[2025-05-09] MEDS: TYLENOL ORAL SOLUTION 650 MG PO ×3 (04:51→18:44)
[2025-05-09 05:09] LABS: Blood Urea Nitrogen 14 mg/dl (9-20); Calcium 7.5 mg/dl (8.4-10.2); Carbon Dioxide 34 mmol/L (22-30); Chloride 105 mmol/L (98-107); Estimated Creatinine Clearance > 125 ml/min; Glucose 103 mg/dl (70-99); Potassium 4.1 mmol/L (3.5-5.1); Sodium 140 mmol/L (135-145); eGFR > 60.00
--- NOTE | 2025-05-09 07:31 | W.PN.HOSP.TC ---
Today's Communication/Plan
-
NPO for possible toe amputation today - reached out to Podiatry
IV Dapto/Linezolid per ID
wean O2 as able
appreciate consultants
Assessment / Plan
Assessment / Plan
Mr. Patrice Mera is a 50 yo man with hx polysubstance abuse, prior CVA (thalamic bleed; right hemiplegia), essential HTN, admitted 04/30 with septic shock 2/2 MRSA bacteremia, SINDY with anion gap metabolic acidosis and hypoxemic respiratory failure.
He is found to have septic joint right knee and development of necrotizing fasciitis.
Venous Dopplers lower extremity-no DVT noted
Echo 05/01/2025-normal biventricular size and systolic function. EF 55 to 60% no vegetation
CT right lower extremity with contrast-subcutaneous stranding within the soft tissues of the anterior thigh and below the knee. No abscess. Moderate suprapatellar joint effusion with areas of loculation. Moderate pelvic free fluid of unknown
etiology. Right inguinal and right iliac chain lymphadenopathy which may be reactive, neoplastic enlargement is not excluded.
Chest x-ray reviewed by me-bilateral infiltrates/edema
LENNY-right LENNY 0.75 and left LENNY 0.83 TBI were obtainable. Doppler waveforms at the ankle bilaterally shows artifacts but remain multiphasic
Renal ultrasound-unremarkable renal ultrasound. Bilateral pleural effusions
CT PE study-no evidence of central PE. Extensive bilateral cavitary nodular opacities compatible with bilateral cavitary pneumonia likely based on septic emboli. Small to moderate bilateral pleural effusions. Gynecomastia. Small amount of
ascites in the right upper quadrant adjacent to the liver.
JEAN 05/06/25
SUMMARY
1. Hyperdynamic left ventricular function.
2. Left ventricular systolic function is greater than 75% by visual assesment.
3. No evidence of any valvular vegetations.
4. Trace mitral valve regurgitation.
Acute respiratory failure, VDRF
-patient was intubated on admission for multiple reasons in setting of septic shock, pneumonia, septic emboli
-CTA without PE
-s/p self extubation on 05/05
-cleared for diet
-weaned to 8L oxygen
MRSA Bacteremia
Septic Shock - patient was on Levo, Vaso, Epi, Giapreza; now off pressors
Septic Arthritis Right Knee
Necrotizing Fasciitis right medial thigh and calf
- JEAN 05/06 without e/o vegetation
- right knee joint aspirate positive for MRSA 05/06
- exam 05/07 with new concern for necrotizing fasciitis right medial thigh and calf
- appreciate general surgery and ortho, patient is s/p I&D of necrotizing soft tissue infection and washout right knee on 05/07/25
- 05/07 antibiotics changed to IV Daptomycin, oral Linezolid
- blood cultures now negative from 05/07
Right second toe infection Gangrene
-appreciate ID and Podiatry
-antibiotics as above
-arterial US with multiphasic waveforms
-wound care betadine soaked gauze to toe - change every day
-I will make patient NPO today, discussing with Podiatry if plan is for amputation of toe today
# Acute kidney injury - ATN in setting of septic shock
Metabolic Acidosis
-Patient briefly required CRRT but could not tolerate long
-Ultrasound of the kidneys without obstruction
-appreciate Renal
- SINDY now resolved
- haney discontinued on 05/06
# Anasarca
# Hypoalbuminemia
-bumex on hold
# Drug abuse urine drug screen positive for Fentanyl, Benzos, Amphetamines and Methamphetamines
Patient was discharged to a rehab last admission however he stayed there only for 2 days and signed himself out
# Multidrug resistant hypertension-currently blood pressure stable without medicines. Watch off of medicines.
Patient was on Coreg, losartan, clonidine, Aldactone as outpatient.
-*resume 1/2 dose Coreg (05/07)
- resume 1/2 dose Losartan (05/08)
-patient was started on standing Clonidine in the ICU post precedex - decrease to q12H today (05/09*)
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 Transferred to [facility] . Pt says he was there for 3 months and has weakness of right side and facial droop. Pt appropriately responding.
s/p [employer] shunt at [facility]
*confirmed cannot get MRI here given shunt
#Chronic back pain
#Morbid obesity with a BMI of 35- Weight loss recommended
#History of nephrolithiasis
#Possible sleep apnea-needs outpatient study as OP.
#ADHD
#Hepatic steatosis per prior imaging-outpatient follow-up
# Active smoker-cessation counseling when able
#DVT prophylaxis-Lovenox
#Full code
patient's daughter, Any, updated daily
51 minutes spent on patient care
Anticipated Discharge: > 48 hours
Subjective/Interval History
-
Date of Service: May 09, 2025
knee pain is much improved
he's asking about advancing diet
Objective Data
-
Labs:
Laboratory Results
05/09/25
04:21
WBC 19.5 H
Hgb 8.7 L
Hct 28.0 L
Plt Count 389
Sodium 140
Potassium 4.1
Chloride 105
Carbon Dioxide 34 H
BUN 14
Creatinine 0.6 L
Glucose 103 H
Calcium 7.5 L
Vital Signs:
Vital Signs
Temp Pulse Resp BP Pulse Ox
98.2 F 85 15 121/63 95
05/09/25 03:14 05/09/25 06:00 05/09/25 06:00 05/09/25 04:11 05/09/25 06:00
I&O
05/08/25 05/09/25 05/10/25
06:59 06:59 06:59
Intake Total 1350 / 1350 3748 / 3748
Output Total 1025 / 1025 975 / 975
Balance 325 / 325 2773 / 2773
Review of Systems
-
History Source: Patient
All other systems: Reviewed and negative
Physical Exam
-
General: Obese and Other (on 10L midflow, mildly tachypneic )
HEENT: PERRLA
Respiratory: Negative Wheezes
Cardiac: Regular Rhythm and S1/S2
GI: Soft and Nontender
Musculoskeletal: Other (right knee wrapped in gauze with some serosanguinous drainage ; right 2nd toe wrapped )
Neuro: AO x 3 and Other (expressive aphasia, right hemiparesis )
Psych: Calm
Data Reviewed
-
Diagnostic Radiology: Report Reviewed by me
Labs: Labs Reviewed by me
--- NOTE | 2025-05-09 08:29 | W.PN.POD ---
Today's Communication
Today's Communication
Right second toe grangrene
Assessment / Plan
-
Right 2nd toe gangrenous changes with exposed bone
MRSA bacteremia
Plan:
Plan for toe amputation today - discussed with Medicine. NPO. Surgical consent is reviewed and discussed. Questions answered. Calcium alginate and gauze reapplied to the toe
Subjective
Chief Complaint
Right 2nd toe gangrene
Subjective
Patient seen at bedside - questions answered re: toe amputation
Objective
Temp Pulse Resp BP Pulse Ox
97.8 F 85 15 121/63 95
05/09/25 07:54 05/09/25 06:00 05/09/25 06:00 05/09/25 04:11 05/09/25 06:00
05/09/25 04:21
05/09/25 04:21
Vital Signs and Lab results were reviewed.
Physical Exam
Physical Exam
Right LE with palpable pulses, generalized edema, normal proximal to distal cooling. Lower legs are bandaged. The distal half of the second toe is dark and necrotic with fibrotic necrotic wound formation that probes directly to the distal bones of
the toe. There is malodor and toe is soft with liquefactive tissue beneath the eschar
X-ray right foot: Soft tissue injury versus ulceration involving the second digit with soft tissue swelling. The cortex of the distal phalanx is indistinct. This may be related to projection, though the possibility of osteomyelitis cannot be
excluded.
LENNY-right LENNY 0.75 and left LENNY 0.83 TBI were not obtainable. Doppler waveforms at the ankle bilaterally shows artifacts but remain multiphasic
[2025-05-09 08:34] LABS: Glucose - Point of Care 118 mg/dl (70-99)
[2025-05-09] MEDS: NOVOLOG FLEXPEN-LOW RESISTANCE SC ×3 (09:00→18:43)
--- NOTE | 2025-05-09 09:04 | W.PN.ID1 ---
Date of Service
Date of Service: May 09, 2025
Today's Communication
Continue Daptomycin and Linezolid.
Assessment / Plan
Sustained complicated MRSA bacteremia -persists
Pulmonary septic emboli vs cavitary MRSA PNA
Septic right knee
Right thigh and calf necrotizing soft tissue infection
Right second toe infection/gangrene/osteomyelitis
Fever -resolving
Leukocytosis -improving
s/p Hypoxemic respiratory failure, self extubated 05/05
SINDY resolved
Substance abuse (UDS with fentanyl, amphetamine, methamphetamine, benzodiazepine)
Hx CVA (thalamic bleed) with right hemiplegia
Chronic back pain
Recommendations:
TTE without noted valvular disease.
05/06/25 JEAN: NO VALVULAR VEGETATION
Bood cx's remain positive
Continue Serial blood cultures to assess ongoing bacteremia
Sputum cx MRSA
05/06 R knee fluid: 41,220 WBC, 54% polys, neg crystals.
Synovial cx MRSA
Appreciate Ortho: 05/07 s/p washout of R knee (+PUS). Cx MRSA
Appreciate general surgery 05/07 s/p I+D right thigh and calf. Cx MRSA
Eventual R second toe amp.
Continue Daptomycin IV (d3). Monitor CK
Continue linezolid (d3) for MRSA PNA, since Dapto does not penetrate lung tissue.
Monitor for bone marrow suppression while on linezolid. Follow CBC
����������������������������������������������������������
Chief Complaint
-: Clinical Sepsis and Bacteremia
Vital Signs / Physical Exam
Vital Signs
Vital Signs
Temp Pulse Resp BP Pulse Ox
97.8 F 85 15 121/63 95
05/09/25 07:54 05/09/25 06:00 05/09/25 06:00 05/09/25 04:11 05/09/25 06:00
Physical Exam
Constitutional: Acutely Ill and Obese
Eyes: Sclera Anicteric
Cardiovascular: Regular Rate and S1/S2
Pulmonary: Non Labored
Gastrointestinal: Soft, Non Tender and Non Distended
Extremities: Edema (RLE>LLE) and Venous Insufficiency
Wound: Other (RLE)
Neurological: Awake and Alert
Lines: Other (midline)
Objective Data
Lab Data
Lab Results
05/09/25 04:21
05/09/25 04:21
PT 20.0 Sec (11.4-14.6) H 04/30/25 19:46
INR 1.65 04/30/25 19:46
APTT Cancelled 05/04/25 14:45
Estimated Creat Clear > 125 ml/min 05/09/25 04:21
Lactic Acid 1.9 mmol/L (0.7-2.0) 05/01/25 12:18
Total Bilirubin 1.8 mg/dl (0.2-1.3) H 05/01/25 12:18
AST 38 U/L (17-59) 05/01/25 12:18
ALT 17 U/L (0-50) 05/01/25 12:18
Alkaline Phosphatase 71 U/L (38-126) 05/01/25 12:18
Most recent labs reviewed.
Micro Results:
05/07/25 18:35 Anaerobic Culture - Preliminary
Knee - Right Culture pending. Anaerobic cultures are examined after 3
days incubation. Additional information to follow.
05/07/25 18:35 Wound Culture - Preliminary
Knee - Right Staphylococcus aureus
Gram Stain - Preliminary
05/07/25 18:35 Anaerobic Culture - Preliminary
Leg - Right Culture pending. Anaerobic cultures are examined after 3
days incubation. Additional information to follow.
05/07/25 18:35 Wound Culture - Preliminary
Leg - Right Staphylococcus aureus
Gram Stain - Preliminary
05/07/25 04:55 Blood Culture - Preliminary
Blood/Venous Staph aureus MRSA
Gram Stain - Preliminary
05/08/25 04:21 Blood Culture - Preliminary
Blood/Venous Positive culture in progress
Gram Stain - Preliminary
05/09/25 04:01 Blood Culture - Pending
Blood/Venous
05/05/25 03:34 Blood Culture - Preliminary
Blood/Venous No Growth in 4 days- Final report to follow
05/04/25 03:13 Blood Culture - Final
Blood/Venous No Growth - Final Report
05/06/25 08:16 Blood Culture - Preliminary
Blood/Venous Staph aureus MRSA
Gram Stain - Preliminary
05/06/25 13:19 Body Fluid Culture - Final
Synovial Fluid Staph aureus MRSA
Gram Stain - Final
04/30/25 19:46 Blood Culture - Final
Blood/Venous Staph aureus MRSA
Gram Stain - Final
05/04/25 09:25 Respiratory Culture - Final
Endotracheal Staph aureus MRSA
Gram Stain - Final
05/03/25 04:25 Blood Culture - Preliminary
Blood/Venous Staph aureus MRSA
Gram Stain - Preliminary
05/02/25 03:16 Blood Culture - Preliminary
Blood/Venous Staph aureus MRSA
Gram Stain - Preliminary
05/01/25 17:45 Blood Culture - Final
Blood/Venous Staph aureus MRSA
Gram Stain - Final
04/30/25 19:46 Blood Culture - Final
Blood/Venous Staph aureus MRSA
Gram Stain - Final
05/01/25 01:32 Urine Culture - Final
Urine Yeast
05/01/25 01:17 Blood Parasites Smear - Final
Blood/Venous
04/30/25 23:02 Influenza Types A & B (GIORGIO) - Final
Nasal Swab Negative for Influenza A & B, NAAT
Negative results must be combined with clinical observations
and patient history.
Nucleic Acid Amplification test (NAAT)performed on the
[employer] platform.
Imaging:
05/02/25 CT RLE: Subcutaneous stranding within the soft tissues of the anterior right thigh, and [id number] anterior soft tissues. No drainable abscess is appreciated. Moderate suprapatellar joint effusion, with areas of loculation.
05/01/2025 ECHO (TTE): EF 55%. Normal biventricular size and systolic function. No significant valvular disease. No obvious vegetations.
05/01/2025 CXR (portable): bilateral interstitial and airspace disease noted which may reflect pulmonary edema or pneumonia. Small bilateral pleural effusions noted. Please see full dictation for additional detail.
05/01/2025 Abdominal x-ray. Enteric tube noted in stomach.
05/01/2025 Renal ultrasound: unremarkable renal ultrasound without hydronephrosis, contour deforming solid renal mass or echogenic shadowing foci to suggest renal calculi. Bilateral pleural effusions noted.
05/01/2025 Duplex ultrasound lower extremity: no evidence of DVT in the bilateral lower extremities
04/30/2025 X-ray right foot: soft tissue injury versus ulceration involving the second digit with soft tissue swelling. The cortex of the distal phalanx is indistinct and the possibility of osteomyelitis cannot be excluded. There is soft tissue
swelling of the first digit. No radiographic evidence to suggest osteomyelitis. Please see full dictation for additional detail.
[2025-05-09] MEDS: COLACE 100 MG PO (09:13)
[2025-05-09] MEDS: ZYVOX 600 MG PO ×2 (09:13→21:42)
[2025-05-09] MEDS: MYCOSTATIN ORAL SUSPENSION 5 ML PO ×3 (09:13→21:42)
[2025-05-09] MEDS: COREG 12.5 MG PO ×2 (09:14→21:39)
[2025-05-09] MEDS: COZAAR 25 MG PO (09:14)
[2025-05-09] MEDS: PROTONIX 40 MG PO (09:14)
[2025-05-09] MEDS: CATAPRES 0.2 MG PO ×2 (09:15→21:41)
[2025-05-09] MEDS: DESENEX/MITRAZOL/ZEASORB 1 APPLIC TOPICAL ×2 (09:15→21:41)
[2025-05-09] MEDS: MIRALAX PO (09:18)
[2025-05-09] MEDS: HYDROPHOR TOPICAL (09:18)
--- NOTE | 2025-05-09 10:52 | W.PN.PUL.V3 ---
Today's Communication / Plan
-
.
Continue attempts at weaning FiO2.
Toe amputation today-cleared from a pulmonary perspective
Antibiotics.
BiPAP at night
Assessment
-
Patient is a 50-year-old male with previous history of opiate use disorder, left thalamic intracranial hemorrhage, presenting to ER with complaints of chest pain, shortness of breath and right toe pain. He arrived in the ER in apparent
respiratory distress with increased work of breathing. He was tried on BiPAP but could not tolerate it. He was admitted here recently in January for opiate use disorder and withdrawal symptoms. UDS is positive for fentanyl, amphetamines,
benzodiazepines. Chest x-ray demonstrating mild left lower lobe pneumonia, he is on HFNC (PAO2 on ABG 73). Admitted to ICU for hypoxemia.
Profound septic shock on 4 pressors: levo, vaso, epi, giapreza--improved now off pressors
Bilateral septic emboli on CAT scan.
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
Acute hypoxic respiratory failure on high flow nasal cannula-->
-Now on daptomycin intubation 05/01
Extubated 05/05/2025.
Metabolic acidosis-resolved
Acute kidney injury, creatinine 6.9-resolved
MRSA endocarditis with pulmonary septic emboli.
Tick bite-negative serology
Possible skin infection/cellulitis
UDS +Fent, benzos, amphetamines
Conditions present SALESPERSON WIGS:
Cellulitis left lower extremity
Hypertensive urgency
Opiate abuse with withdrawal
Microscopic hematuria, Albuminuria noted in the urine
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
Leukocytosis- elevated since 2008 labs
Chronic back pain
Morbid obesity with a BMI of 39
History of nephrolithiasis
Possible sleep apnea-needs outpatient study asleep
ADHD
Hepatic steatosis per prior imaging
Active smoker
Plan:
The patient hypoxemic respiratory failure in the setting of severe sepsis with septic emboli noted on CT chest with cavitating lesions
CT chest 05/04/2025: with bilateral significant cavitating infiltrates likely septic emboli versus cavitating pneumonia
Respiratory status has improved-patient self extubated 05/26
Continue supplemental oxygen-attempt to wean-currently on 10 L mid flow-93% saturation
Incentive spirometry encouraged
Increase activity
Acapella and mucus clearing devices as needed
Nebulizers as needed-currently not bronchospastic.
BiPAP at night and during the daytime as needed-14/8, 10 L O2, set rate 14
Cultures reviewed
Persistent staph
Infectious disease following-correspondence reviewed
Tick noted-serology negative
Continue antibiotics, vancomycin discontinued-now on daptomycin and linezolid
Pressors weaned-was on 4 pressors including giapreza-now off with normal function and
Echocardiogram with normal function and no evidence for endocarditis
JEAN 05/06/2025: Hyperdynamic left ventricle. Left ventricular systolic function greater than 75%. No evidence for any valvular vegetations. Trace mitral valve regurgitation.
Podiatry following-correspondence reviewed.
Right second toe amputation pending
Cleared for potential surgery from a pulmonary perspective with moderate risks for perioperative pulmonary complications
Orthopedics following-correspondence reviewed
Irrigation admitted with arthrotomy right septic knee 05/06/2025
Follow-up with
Transfuse as needed
Monitor renal function
SINDY resolved
Nephrology following-correspondence reviewed prophylaxis
DVT-mechanical as well as Lovenox
GI prophylaxis-on pantoprazole
Nutrition
Physical therapy
Outpatient pulmonary [id number] PFTs and sleep study as well as radiographic follow-up
Diagnostic Data
Chest X-Ray: 04/30/25- Mild left lower lobe pneumonia. Trace bilateral pleural effusions.
CT Scan: CT head 01/2025: There is a ventricular shunt present which enters from the right superior frontal region, with tip of the shunt to the junction of the inferior frontal horn of the right lateral ventricle and the third ventricle. There is
decreased size of the right lateral ventricle when compared to the left, and slight shift of the septum pellucidum toward the left, and findings suggest peripheral arterial shunting of the right lateral ventricle when compared to the left. There is
no evidence of acute intracranial hemorrhage. In the inferior aspect of the left thalamus, there is a small focal area of decreased density measuring 1.5 cm transverse by 0.8 cm AP, compatible with encephalomalacia from previous region of
intracranial hemorrhage. No abnormal extra-axial collection is identified. There is 80% opacification of the sphenoid sinus, slightly improved from previous examination. The rest of the paranasal sinuses appear clear. The mastoid air cells appear
clear.
AP 02/23/25- 2 small nephroliths within the posterior upper pole the right kidney. As described, evidence for blood products/hematoma within the calyces of the upper pole of the right kidney. Wall of the urinary bladder appears mildly diffusely
thickened, which may be on the basis of incomplete distention, but correlate clinically to exclude cystitis. Mild hepatomegaly with no focal hepatic lesion. Thickening of the wall the duodenum extending from the duodenal bulb contiguously through
the distal third portion, with stranding of the adjacent fat. Main differential considerations of primary duodenitis, versus reactive duodenitis from pancreatitis. There is mild stranding of the fat adjacent to the pancreatic head with no focal
collection. Mild to moderate subcutaneous edema greatest in the lateral flanks.
Echo: 05/01/25- Normal biventricular size and systolic function without regional wall motion abnormality. LV ejection fraction is 55-60% by visual assessment. Normal diastolic function. No significant valvular disease. No obvious vegetation. No
prior study available for comparison.
Reports and relevant images were personally reviewed.
Subjective Data
-
Date of Service:
Date of Service: May 09, 2025
Chief Complaint: Pulmonary Follow Up and Dyspnea Follow Up
Subjective:
Supplemental oxygen weaned to 6-8 L, no complaints shortness of breath, chest pain, chest congestion, productive cough, or abdominal pain
Review of Systems
General: Other (per HPI)
Objective Data
Data Reviewed
Vital Signs / I&O:
Vital Signs
Temp Pulse Resp BP Pulse Ox
97.8 F 85 15 121/63 95
05/09/25 07:54 05/09/25 06:00 05/09/25 06:00 05/09/25 04:11 05/09/25 06:00
Intake and Output
05/08/25 05/09/25 05/10/25
06:59 06:59 06:59
Intake Total 1350 / 1350 3748 / 3748
Output Total 1025 / 1025 975 / 975
Balance 325 / 325 2773 / 2773
SaO2: 95
Nasal Cannula flow liters per minute: 15
Physical Exam
General: Respiratory Distress (n) and Comfortable
HEENT: Normocephalic, Anicteric, Moist Mucous Membranes and Other (Thick neck)
Cardiovascular: Regular Rhythm
Respiratory: Wheeze (n), Crackles (Few basilar), Rhonchi (n), Non-Labored Respirations and Accessory Resp Muscle Use
GI: Soft, Non Distended and Non Tender
Neurology: Awake, Alert and No Motor Deficits
Skin: Warm, Good Color, Cyanosis (n), Jaundice and Rash
Labs/Micro/Reports
Lab Data
05/09/25 04:21
05/09/25 04:21
Microbiology
05/07/25 18:35 Knee - Right Anaerobic Culture - Preliminary
Culture pending. Anaerobic cultures are examined after 3
days incubation. Additional information to follow.
05/07/25 18:35 Knee - Right Wound Culture - Preliminary
Staphylococcus aureus
05/07/25 18:35 Knee - Right Gram Stain - Preliminary
05/07/25 18:35 Leg - Right Anaerobic Culture - Preliminary
Culture pending. Anaerobic cultures are examined after 3
days incubation. Additional information to follow.
05/07/25 18:35 Leg - Right Wound Culture - Preliminary
Staphylococcus aureus
05/07/25 18:35 Leg - Right Gram Stain - Preliminary
05/07/25 04:55 Blood/Venous Blood Culture - Preliminary
Staph aureus MRSA
05/07/25 04:55 Blood/Venous Gram Stain - Preliminary
05/08/25 04:21 Blood/Venous Blood Culture - Preliminary
Positive culture in progress
05/08/25 04:21 Blood/Venous Gram Stain - Preliminary
05/05/25 03:34 Blood/Venous Blood Culture - Preliminary
No Growth in 4 days- Final report to follow
05/04/25 03:13 Blood/Venous Blood Culture - Final
No Growth - Final Report
05/06/25 08:16 Blood/Venous Blood Culture - Preliminary
Staph aureus MRSA
05/06/25 08:16 Blood/Venous Gram Stain - Preliminary
05/06/25 13:19 Synovial Fluid Body Fluid Culture - Final
Staph aureus MRSA
05/06/25 13:19 Synovial Fluid Gram Stain - Final
04/30/25 19:46 Blood/Venous Blood Culture - Final
Staph aureus MRSA
04/30/25 19:46 Blood/Venous Gram Stain - Final
05/04/25 09:25 Endotracheal Respiratory Culture - Final
Staph aureus MRSA
05/04/25 09:25 Endotracheal Gram Stain - Final
05/03/25 04:25 Blood/Venous Blood Culture - Preliminary
Staph aureus MRSA
05/03/25 04:25 Blood/Venous Gram Stain - Preliminary
--- NOTE | 2025-05-09 10:57 | CM ---
Addendum entered by Jami Velasco 05/09/25 14:58:
[facility] tentatively accepted patient, per wound care patient will need a wide or bariatric air mattress at [facility]. CM will continue to follow for discharge planning needs.
Addendum entered by Jami Velasco 05/09/25 12:38:
Patient on O2 8 liters, anticipates surgery today. Patient is open to returning to [facility] when medically appropriate if needed. CM will send referral via all scripts.
Original Note:
Patient seen at bedside in IMU. Patient currently on O2 and patient is for possible surgery. Patient was previously at [facility], CM will call to patient family and confirm that patient could return there if accepted. CM will continue to follow
for discharge planning needs.
Plan; SNF pending medical treatment plan; refer to [facility]; [facility] previously
[2025-05-09 11:16] LABS: Glucose - Point of Care 118 mg/dl (70-99)
[2025-05-09] MEDS: CUBICIN 20 MG IV (11:17)
[2025-05-09] MEDS: TYLENOL ORAL SOLUTION PO (11:34)
[2025-05-09] MEDS: MYCOSTATIN ORAL SUSPENSION PO (11:35)
[2025-05-09] MEDS: DILAUDID 1 MG IV (13:14)
--- NOTE | 2025-05-09 13:29 | W.PN.GS2 ---
Addendum entered and electronically signed by Rodger Ortega MD 05/09/25 14:08:
Reports Patient seen and examined. Agree with assessment plan as documented below.
Reports continued discomfort, though no worse. No fevers or chills.
RLE: Dressing removed, mild soft ecchymosis to medial thigh and calf (marked), no blistering or significant pain with palpation, medial calf wound 6 x 7 cm, healthy, no purulence or necrosis, no active bleeding, medial thigh wound 4 x 3 cm, healthy,
no purulence or necrosis, no active bleeding, dressing re-applied
Patient is a 49 yo M wit past h/o polysubstance abuse, prior CVA (thalamic bleed, right hemiplegia), essential HTN, MRSA positive bacteremia, Acute kidney injury, chronic respiratory failure presented with right side knee pain and wounds RLE
POD #2 Incision and drainage of necrotizing soft tissue infection of the right lower extremity x 2 (medial calf: 5 x 7 cm x 2 cm deep; medial thigh 3 x 3 x 2 cm) (gen surg)
Irrigation debridement with arthrotomy right septic knee (ortho)
AFVSS
+MRSA blood and wounds
Erythema marked, no gross purulence
Plan:
-- NPO for Right 2nd toe amp with podiatry for gangrenous changes with exposed bone
-- Dressing changed at bedside with wound care, erythema marked. No induration or purulence to wounds, draining well.
-- Continue packing with Dakins/Kerlix. CHAUNCEY compression wrap from foot to mid thigh given edema
-- ABX as per ID
-- Surgery to continue to follow peripherally, please call with questions/concerns
Original Note:
Today's Communication / Plan
-
Local wound care
Assessment / Plan
-
49 yrs old wit past h/o polysubstance abuse, prior CVA (thalamic bleed, right hemiplegia), essential HTN, MRSA positive bacteremia, Acute kidney injury, chronic respiratory failure presented with right side knee pain and wounds RLE
POD #2 Incision and drainage of necrotizing soft tissue infection of the right lower extremity x 2 (medial calf: 5 x 7 cm x 2 cm deep; medial thigh 3 x 3 x 2 cm) (gen surg)
Irrigation debridement with arthrotomy right septic knee (ortho)
AFVSS
+MRSA blood and wounds
Erythema marked, no gross purulence
plan:
NPO for Right 2nd toe amp with podiatry for gangrenous changes with exposed bone
Dressing changed at bedside with wound care, erythema marked. No induration or purulence to wounds, draining well.
Continue packing with Dakins/kerlix. CHAUNCEY compression wrap from foot to mid thigh given edema
ABX as per ID
Surgery to continue to follow peripherally, please call with questions/concerns
Subjective Data
-
Date of Service: May 09, 2025
Pt seen and examined at bedside with Dr. Ortega. Pain to right leg with dressing changes. +cough.
Objective Data
-
Intake and Output
05/08/25 05/09/25 05/10/25
06:59 06:59 06:59
Intake Total 1350 / 1350 3748 / 3748
Output Total 1025 / 1025 975 / 975
Balance 325 / 325 2773 / 2773
Intake:
Oral fluids 2440 / 2440
IV fluids (Total) 1350 / 1350 1200 / 1200
normosol 100 / 100
IV piggybacks 108 / 108
Output:
Drain Output (Total) 0 / 0
Right Upper Leg Hemovac A 0 / 0
Urine, Voided 1025 / 1025 975 / 975
Other:
How many times incontinent 1
SMALL amount urine
Vital Signs
Temp Pulse Resp BP Pulse Ox
97.8 F 85 15 121/63 95
05/09/25 07:54 05/09/25 06:00 05/09/25 06:00 05/09/25 04:11 05/09/25 10:52
Lab Results
05/09/25 04:21
05/09/25 04:21
Calcium 7.5 mg/dl (8.4-10.2) L 05/09/25 04:21
Phosphorus 3.2 mg/dl (2.5-4.5) 05/03/25 04:25
Magnesium 1.9 mg/dl (1.6-2.3) 05/08/25 04:21
Total Bilirubin 1.8 mg/dl (0.2-1.3) H 05/01/25 12:18
Direct Bilirubin 1.8 mg/dl (0.0-0.4) H 05/01/25 03:48
AST 38 U/L (17-59) 05/01/25 12:18
ALT 17 U/L (0-50) 05/01/25 12:18
Alkaline Phosphatase 71 U/L (38-126) 05/01/25 12:18
Total Protein 6.0 g/dl (6.3-8.2) L 05/01/25 12:18
Albumin 2.8 g/dl (3.5-5.0) L 05/01/25 12:18
Physical Exam
-
NAD
right knee incision with intact desi, no erythema
right leg incisions x2 (medial calf: 5 x 7 cm x 2 cm deep; medial thigh 3 x 3 x 2 cm), packing removed without gross purulence, no induration. erythema marked
3+ edema RLE, +pulses
Patient has a haney catheter: No
Patient has a central line: No
--- NOTE | 2025-05-09 13:40 | WOUNDNOTE ---
R CALF (MEDIAL UPPER)/DISTAL MEDIAL KNEE
--- NOTE | 2025-05-09 14:00 | WOUNDNOTE ---
[facility] RN note: Patient seen with Dr. Ortega and CORIN Ibarra for R upper calf and thigh dressing change. Wounds appear clean and full thickness suspect to subcutaneous layer. Some undermining noted however the 2 wounds do not appear to
communicate. Dr. Ortega packed the wounds, ABD pads and Kerlix applied. Patient was premedicated for pain by CHAYA Wilder. Patient tolerated dressing change well. Skin on R heel intact. L knee high Brody in place. L heel off bed with pillow and R heel
off bed with bariatric air chair cushion. Patient turned to L semi side lying position with help from CHAYA Wilder. CHAYA Wilder assessed sacral skin and reports sacral skin intact. Tina changed patient's sacral shaped silicone border foam. Dr. Ortega
requested R thigh high Brody wrap and stated can start tomorrow since patient is going for R 2nd toe amp surgery lateral today. Care plan and discharge instructions updated. Will follow as needed.
--- NOTE | 2025-05-09 15:00 | WOUNDNOTE ---
[facility] RN note: Sarthak Velasco re: recommend a wide or bariatric air mattress at SNF. Patient is high risk for a pressure injury.
[2025-05-09 17:29] LABS: Glucose - Point of Care 101 mg/dl (70-99)
--- NOTE | 2025-05-09 17:30 | W.PN.UPDATE ---
Update Note
Progress Note Update
Patrice underwent right 2nd toe amputation today. He tolerated the procedure well. Remaining tissue after toe amputation was viable. See operative note for details. Elevate extremity. He may be weight bearing as tolerated in a surgical shoe.
[2025-05-09 18:39] LABS: Glucose - Point of Care 132 mg/dl (70-99)
[2025-05-09] MEDS: LOVENOX 40 MG SC (18:44)
--- NOTE | 2025-05-09 19:35 | PTCARENOTE ---
recieved pt from pacu approx 1800. sinus rythym on monitor. pr on 15 liters o2 via midflow. right foot dressing intact with both legs wrapped with jess wraps. pt medicated for pain with oxycodone.
[2025-05-09] MEDS: COLACE PO ×2 (21:39→21:44)
[2025-05-09 21:57] LABS: Glucose - Point of Care 172 mg/dl (70-99)
[2025-05-10] VITALS (18 sets, daily range): BP systolic 101–181; BP diastolic 55–85; PULSE 2–91; O2SAT 88–90; BMI 36.8
--- NOTE | 2025-05-10 00:45 | PTCARENOTE ---
Assumed care of pt from dayshift RN. Pt ox3, drowsy, flat and forgetful at times. NSR on monitor. SpO2 95% on Bipap. Vital signs and assessment as documented. Pt is currently asleep in bed with call finley in reach.
[2025-05-10] MEDS: ROXICODONE 20 MG PO ×5 (04:08→20:51)
[2025-05-10] MEDS: TYLENOL ORAL SOLUTION 650 MG PO ×4 (04:09→16:52)
[2025-05-10] MEDS: COLACE 100 MG PO ×2 (07:17→20:42)
[2025-05-10] MEDS: COREG 12.5 MG PO ×2 (07:17→20:42)
[2025-05-10] MEDS: HYDROPHOR 1 APPLIC TOPICAL (07:17)
[2025-05-10] MEDS: MIRALAX 17 GRAMS PO (07:17)
[2025-05-10] MEDS: ZYVOX 600 MG PO ×2 (07:17→20:42)
[2025-05-10] MEDS: COZAAR 25 MG PO (07:17)
[2025-05-10] MEDS: MYCOSTATIN ORAL SUSPENSION 5 ML PO ×4 (07:17→20:42)
[2025-05-10] MEDS: CATAPRES 0.2 MG PO ×2 (07:17→20:42)
[2025-05-10] MEDS: PROTONIX 40 MG PO (07:17)
[2025-05-10] MEDS: DESENEX/MITRAZOL/ZEASORB 1 APPLIC TOPICAL ×2 (07:18→20:43)
[2025-05-10 07:20] LABS: Glucose - Point of Care 135 mg/dl (70-99)
[2025-05-10] MEDS: DAKIN'S SOLUTION 0.125% 1/4 STRENGTH 1 ML TOPICAL (07:27)
--- NOTE | 2025-05-10 07:42 | W.PN.HOSP.TC ---
Today's Communication/Plan
-
Linezolid/Dapto
Appreciate ID
PT/OT ordered today
wean O2 as able
awaiting labs, considering lasix
Assessment / Plan
Assessment / Plan
Mr. Patrice Mera is a 50 yo man with hx polysubstance abuse, prior CVA (thalamic bleed; right hemiplegia), essential HTN, admitted 04/30 with septic shock 2/2 MRSA bacteremia, SINDY with anion gap metabolic acidosis and hypoxemic respiratory failure.
He is found to have septic joint right knee and development of necrotizing fasciitis.
Venous Dopplers lower extremity-no DVT noted
Echo 05/01/2025-normal biventricular size and systolic function. EF 55 to 60% no vegetation
CT right lower extremity with contrast-subcutaneous stranding within the soft tissues of the anterior thigh and below the knee. No abscess. Moderate suprapatellar joint effusion with areas of loculation. Moderate pelvic free fluid of unknown
etiology. Right inguinal and right iliac chain lymphadenopathy which may be reactive, neoplastic enlargement is not excluded.
Chest x-ray reviewed by me-bilateral infiltrates/edema
LENNY-right LENNY 0.75 and left LENNY 0.83 TBI were obtainable. Doppler waveforms at the ankle bilaterally shows artifacts but remain multiphasic
Renal ultrasound-unremarkable renal ultrasound. Bilateral pleural effusions
CT PE study-no evidence of central PE. Extensive bilateral cavitary nodular opacities compatible with bilateral cavitary pneumonia likely based on septic emboli. Small to moderate bilateral pleural effusions. Gynecomastia. Small amount of
ascites in the right upper quadrant adjacent to the liver.
JEAN 05/06/25
SUMMARY
1. Hyperdynamic left ventricular function.
2. Left ventricular systolic function is greater than 75% by visual assesment.
3. No evidence of any valvular vegetations.
4. Trace mitral valve regurgitation.
Acute respiratory failure, VDRF
-patient was intubated on admission for multiple reasons in setting of septic shock, pneumonia, septic emboli
-CTA without PE
-s/p self extubation on 05/05
-cleared for diet
-weaned to 8L oxygen, back on 15L post-op
MRSA Bacteremia
Septic Shock - patient was on Levo, Vaso, Epi, Giapreza; now off pressors
Septic Arthritis Right Knee
Necrotizing Fasciitis right medial thigh and calf
- JEAN 05/06 without e/o vegetation
- right knee joint aspirate positive for MRSA 05/06
- exam 05/07 with new concern for necrotizing fasciitis right medial thigh and calf
- appreciate general surgery and ortho, patient is s/p I&D of necrotizing soft tissue infection and washout right knee on 05/07/25
- 05/07 antibiotics changed to IV Daptomycin, oral Linezolid
- blood cultures remain positive from 05/08
- daily blood cultures ordered
Right second toe infection Gangrene
-appreciate ID and Podiatry
-antibiotics as above
-arterial US with multiphasic waveforms
-wound care betadine soaked gauze to toe - change every day
-patient is s/p right second toe amputation on 05/09
# Acute kidney injury - ATN in setting of septic shock
Metabolic Acidosis
-Patient briefly required CRRT but could not tolerate long
-Ultrasound of the kidneys without obstruction
-appreciate Renal
- SINDY now resolved
- haney discontinued on 05/06
# Anasarca
# Hypoalbuminemia
-bumex on hold
-consider Lasix today post labs with increase in O2 needs
# Drug abuse urine drug screen positive for Fentanyl, Benzos, Amphetamines and Methamphetamines
Patient was discharged to a rehab last admission however he stayed there only for 2 days and signed himself out
# Multidrug resistant hypertension-currently blood pressure stable without medicines. Watch off of medicines.
Patient was on Coreg, losartan, clonidine, Aldactone as outpatient.
-*resume 1/2 dose Coreg (05/07)
- resume 1/2 dose Losartan (05/08)
-patient was started on standing Clonidine in the ICU post precedex - decrease to q12H (05/09/25)
-consider resuming Spironolactone today post labs
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 Transferred to [facility] . Pt says he was there for 3 months and has weakness of right side and facial droop. Pt appropriately responding.
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
*confirmed cannot get MRI here given shunt
#Chronic back pain
#Morbid obesity with a BMI of 35- Weight loss recommended
#History of nephrolithiasis
#Possible sleep apnea-needs outpatient study as OP.
#ADHD
#Hepatic steatosis per prior imaging-outpatient follow-up
# Active smoker-cessation counseling when able
#DVT prophylaxis-Lovenox
#Full code
patient's daughter, Any, updated daily
51 minutes spent on patient care
Anticipated Discharge: > 48 hours
Subjective/Interval History
-
Date of Service: May 10, 2025
focused on wanting to eat breakfast
denies chest pain or trouble breathing
Objective Data
-
Labs:
Laboratory Results
05/10/25
06:00
WBC Pending
Hgb Pending
Hct Pending
Plt Count Pending
Sodium Pending
Potassium Pending
Chloride Pending
Carbon Dioxide Pending
BUN Pending
Creatinine Pending
Glucose Pending
Calcium Pending
Vital Signs:
Vital Signs
Temp Pulse Resp BP Pulse Ox
98.3 F 93 26 152/70 90
05/10/25 03:02 05/10/25 06:00 05/10/25 06:00 05/10/25 06:00 05/10/25 06:00
I&O
05/09/25 05/10/25 05/11/25
06:59 06:59 06:59
Intake Total 3748 / 3748 480 / 480
Output Total 975 / 975 1925 / 1924
Balance 2773 / 2773 -1445 / -1445
Review of Systems
-
History Source: Patient
All other systems: Reviewed and negative
Physical Exam
-
General: Obese and Other (on 15L midflow, mildly tachypneic )
HEENT: PERRLA
Respiratory: Negative Wheezes
Cardiac: Regular Rhythm and S1/S2
GI: Soft and Nontender
Musculoskeletal: Other (right knee wrapped in gauze with some serosanguinous drainage ; right 2nd toe wrapped )
Neuro: AO x 3 and Other (expressive aphasia, right hemiparesis )
Psych: Calm
Data Reviewed
-
Diagnostic Radiology: Report Reviewed by me
Labs: Labs Reviewed by me
[2025-05-10] MEDS: NOVOLOG FLEXPEN-LOW RESISTANCE SC (07:59)
[2025-05-10 08:44] LABS: Hematocrit 31.4 % (39.0-52.0); Hemoglobin 9.2 g/dL (13.0-18.0); Mean Corp Hgb Conc. 29.3 g/dL (33.0-37.0); Mean Corpuscular Volume 91.0 fL (80.0-94.0); Nucleated Red Blood Cells % 0.1 % (-); Platelet Count 531 10^3/uL (130-400); Red Cell Dist. Width 16.1 % (11.5-14.5)
--- NOTE | 2025-05-10 09:36 | W.PN.ID1 ---
Date of Service
Date of Service: May 10, 2025
Today's Communication
Continue dapto/linezolid
Assessment / Plan
Sustained complicated MRSA bacteremia -persists
Pulmonary septic emboli vs cavitary MRSA PNA
Septic right knee
Right thigh and calf necrotizing soft tissue infection
Right second toe infection/gangrene/osteomyelitis
Fever -resolving
Leukocytosis -stable
s/p Hypoxemic respiratory failure, self extubated 05/05
SINDY resolved
Substance abuse (UDS with fentanyl, amphetamine, methamphetamine, benzodiazepine)
Hx CVA (thalamic bleed) with right hemiplegia
Chronic back pain
Recommendations:
TTE without noted valvular disease.
05/06/25 JEAN: NO VALVULAR VEGETATION
Blood cx's remain positive
Continue Serial blood cultures to assess ongoing bacteremia (ordered for 06/10 -06/13)
Sputum cx MRSA
05/06 R knee fluid: 41,220 WBC, 54% polys, neg crystals.
Synovial cx MRSA
Appreciate Ortho: 05/07 s/p washout of R knee (+PUS). Cx MRSA
Appreciate general surgery 05/07 s/p I+D right thigh and calf. Cx MRSA
05/09 s/p R 2nd toe amputation
Continue Daptomycin IV (d4). Monitor CK
Continue linezolid (d4) for MRSA PNA, since Dapto does not penetrate lung tissue.
Monitor for bone marrow suppression while on linezolid.
Follow CBC
����������������������������������������������������������
Chief Complaint
-: Clinical Sepsis and Bacteremia
Subjective / Review of Systems
Hungry. denies cough
Vital Signs / Physical Exam
Vital Signs
Vital Signs
Temp Pulse Resp BP Pulse Ox
97.6 F 93 26 152/70 90
05/10/25 08:00 05/10/25 06:00 05/10/25 06:00 05/10/25 06:00 05/10/25 06:00
Physical Exam
Constitutional: Acutely Ill and Chronically Ill
Eyes: Sclera Anicteric
Cardiovascular: Regular Rate and S1/S2
Pulmonary: Coarse and Non Labored
Gastrointestinal: Soft, Non Tender and Normal Bowel Sounds
Extremities: Edema
Wound: Other (RLE dressing dry)
Neurological: Awake and Alert
Lines: Other (midline no erythema)
Objective Data
Lab Data
Lab Results
05/10/25 08:14
PT 20.0 Sec (11.4-14.6) H 04/30/25 19:46
INR 1.65 04/30/25 19:46
APTT Cancelled 05/04/25 14:45
Estimated Creat Clear Cancelled 05/10/25 08:14
Lactic Acid 1.9 mmol/L (0.7-2.0) 05/01/25 12:18
Total Bilirubin 1.8 mg/dl (0.2-1.3) H 05/01/25 12:18
AST 38 U/L (17-59) 05/01/25 12:18
ALT 17 U/L (0-50) 05/01/25 12:18
Alkaline Phosphatase 71 U/L (38-126) 05/01/25 12:18
Most recent labs reviewed.
Micro Results:
05/08/25 04:21 Blood Culture - Preliminary
Blood/Venous Staphylococcus aureus
Gram Stain - Preliminary
05/07/25 18:35 Anaerobic Culture - Preliminary
Knee - Right Culture pending. Anaerobic cultures are examined after 3
days incubation. Additional information to follow.
05/07/25 18:35 Wound Culture - Preliminary
Knee - Right Staph aureus MRSA
Gram Stain - Preliminary
05/07/25 18:35 Anaerobic Culture - Preliminary
Leg - Right Culture pending. Anaerobic cultures are examined after 3
days incubation. Additional information to follow.
05/07/25 18:35 Wound Culture - Preliminary
Leg - Right Staph aureus MRSA
Gram Stain - Preliminary
05/09/25 04:01 Blood Culture - Preliminary
Blood/Venous No Growth in 24 hours- Final report to follow
05/05/25 03:34 Blood Culture - Final
Blood/Venous No Growth - Final Report
05/03/25 04:25 Blood Culture - Final
Blood/Venous Staph aureus MRSA
Gram Stain - Final
05/02/25 03:16 Blood Culture - Final
Blood/Venous Staph aureus MRSA
Gram Stain - Final
05/07/25 04:55 Blood Culture - Preliminary
Blood/Venous Staph aureus MRSA
Gram Stain - Preliminary
05/04/25 03:13 Blood Culture - Final
Blood/Venous No Growth - Final Report
05/06/25 08:16 Blood Culture - Preliminary
Blood/Venous Staph aureus MRSA
Gram Stain - Preliminary
05/06/25 13:19 Body Fluid Culture - Final
Synovial Fluid Staph aureus MRSA
Gram Stain - Final
04/30/25 19:46 Blood Culture - Final
Blood/Venous Staph aureus MRSA
Gram Stain - Final
05/04/25 09:25 Respiratory Culture - Final
Endotracheal Staph aureus MRSA
Gram Stain - Final
05/01/25 17:45 Blood Culture - Final
Blood/Venous Staph aureus MRSA
Gram Stain - Final
04/30/25 19:46 Blood Culture - Final
Blood/Venous Staph aureus MRSA
Gram Stain - Final
05/01/25 01:32 Urine Culture - Final
Urine Yeast
05/01/25 01:17 Blood Parasites Smear - Final
Blood/Venous
04/30/25 23:02 Influenza Types A & B (GIORGIO) - Final
Nasal Swab Negative for Influenza A & B, NAAT
Negative results must be combined with clinical observations
and patient history.
Nucleic Acid Amplification test (NAAT)performed on the
[employer] platform.
Imaging:
05/02/25 CT RLE: Subcutaneous stranding within the soft tissues of the anterior right thigh, and [id number] anterior soft tissues. No drainable abscess is appreciated. Moderate suprapatellar joint effusion, with areas of loculation.
05/01/2025 ECHO (TTE): EF 55%. Normal biventricular size and systolic function. No significant valvular disease. No obvious vegetations.
05/01/2025 CXR (portable): bilateral interstitial and airspace disease noted which may reflect pulmonary edema or pneumonia. Small bilateral pleural effusions noted. Please see full dictation for additional detail.
05/01/2025 Abdominal x-ray. Enteric tube noted in stomach.
05/01/2025 Renal ultrasound: unremarkable renal ultrasound without hydronephrosis, contour deforming solid renal mass or echogenic shadowing foci to suggest renal calculi. Bilateral pleural effusions noted.
05/01/2025 Duplex ultrasound lower extremity: no evidence of DVT in the bilateral lower extremities
04/30/2025 X-ray right foot: soft tissue injury versus ulceration involving the second digit with soft tissue swelling. The cortex of the distal phalanx is indistinct and the possibility of osteomyelitis cannot be excluded. There is soft tissue
swelling of the first digit. No radiographic evidence to suggest osteomyelitis. Please see full dictation for additional detail.
--- NOTE | 2025-05-10 10:13 | W.PN.PUL3 ---
Today's Communication / Plan
-
- Continue to wean oxygen as tolerated
- Continue current antibiotics
- Follow-up chest x-ray in a.m. to evaluate pleural effusions
Assessment
-
Patient is a 50-year-old male with previous history of opiate use disorder, left thalamic intracranial hemorrhage, presenting to ER with complaints of chest pain, shortness of breath and right toe pain. He arrived in the ER in apparent
respiratory distress with increased work of breathing. He was tried on BiPAP but could not tolerate it. He was admitted here recently in January for opiate use disorder and withdrawal symptoms. UDS is positive for fentanyl, amphetamines,
benzodiazepines. Chest x-ray demonstrating mild left lower lobe pneumonia, he is on HFNC (PAO2 on ABG 73). Admitted to ICU for hypoxemia.
Profound septic shock on 4 pressors: levo, vaso, epi, giapreza--improved now off pressors
Bilateral septic emboli on CAT scan.
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
Acute hypoxic respiratory failure on high flow nasal cannula-->
-Now on daptomycin intubation 05/01
Extubated 05/05/2025.
Metabolic acidosis-resolved
Acute kidney injury, creatinine 6.9-resolved
MRSA endocarditis with pulmonary septic emboli.
Tick bite-negative serology
Possible skin infection/cellulitis
UDS +Fent, benzos, amphetamines
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
Cellulitis left lower extremity
Hypertensive urgency
Opiate abuse with withdrawal
Microscopic hematuria, Albuminuria noted in the urine
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
Leukocytosis- elevated since 2008 labs
Chronic back pain
Morbid obesity with a BMI of 39
History of nephrolithiasis
Possible sleep apnea-needs outpatient study asleep
ADHD
Hepatic steatosis per prior imaging
Active smoker
Assessment and plan:
#1. MRSA bacteremia with septic shock
- Shock has since resolved, patient off pressors, hemodynamically stable, MAP of 81
- Antimicrobial therapy per infectious disease service
#2. Acute hypoxic respiratory failure with bilateral cavitary pneumonia/septic emboli with bilateral pleural effusions
- Worsen noted on cultures, currently on IV antibiotics
- Intubated 05/01, extubated 05/05.
- Currently on nasal cannula, at 15 L supplemental oxygen, saturating 90 to 91%, respiratory rate around 25-27. Nightly using BiPAP which patient reports seems to help with his breathing
- Follow-up chest x-ray in a.m. to follow-up on pleural effusions, depending upon radiological finding, might need thoracentesis
- Continue to wean oxygen as tolerated
- Continue nightly BiPAP for now
- Incentive spirometry, Acapella/flutter valve, activity as tolerated
Cultures reviewed
Persistent staph
Infectious disease following-correspondence reviewed
Tick noted-serology negative
Continue antibiotics, vancomycin discontinued-now on daptomycin and linezolid
Pressors weaned-was on 4 pressors including giapreza-now off with normal function and
Echocardiogram with normal function and no evidence for endocarditis
JEAN 05/06/2025: Hyperdynamic left ventricle. Left ventricular systolic function greater than 75%. No evidence for any valvular vegetations. Trace mitral valve regurgitation.
Podiatry following-correspondence reviewed.
Right second toe amputation 05/09/25
Orthopedics following-correspondence reviewed
Irrigation admitted with arthrotomy right septic knee 05/06/2025
Monitor renal function
SINDY resolved
Nephrology following-correspondence reviewed prophylaxis
DVT-mechanical as well as Lovenox
GI prophylaxis-on pantoprazole
Nutrition
Physical therapy
Outpatient pulmonary [id number] PFTs and sleep study as well as radiographic follow-up
Total time spent on this consultation/encounter __42__ minutes which includes review of history, physical exam, medications, laboratory data, personal review of imaging, extensive review of outpatient records, discussion with care team and
respiratory therapy.
Diagnostic Data
Chest X-Ray: 04/30/25- Mild left lower lobe pneumonia. Trace bilateral pleural effusions.
CT Scan: CT head 01/2025: There is a ventricular shunt present which enters from the right superior frontal region, with tip of the shunt to the junction of the inferior frontal horn of the right lateral ventricle and the third ventricle. There is
decreased size of the right lateral ventricle when compared to the left, and slight shift of the septum pellucidum toward the left, and findings suggest peripheral arterial shunting of the right lateral ventricle when compared to the left. There is
no evidence of acute intracranial hemorrhage. In the inferior aspect of the left thalamus, there is a small focal area of decreased density measuring 1.5 cm transverse by 0.8 cm AP, compatible with encephalomalacia from previous region of
intracranial hemorrhage. No abnormal extra-axial collection is identified. There is 80% opacification of the sphenoid sinus, slightly improved from previous examination. The rest of the paranasal sinuses appear clear. The mastoid air cells appear
clear.
AP 02/23/25- 2 small nephroliths within the posterior upper pole the right kidney. As described, evidence for blood products/hematoma within the calyces of the upper pole of the right kidney. Wall of the urinary bladder appears mildly diffusely
thickened, which may be on the basis of incomplete distention, but correlate clinically to exclude cystitis. Mild hepatomegaly with no focal hepatic lesion. Thickening of the wall the duodenum extending from the duodenal bulb contiguously through
the distal third portion, with stranding of the adjacent fat. Main differential considerations of primary duodenitis, versus reactive duodenitis from pancreatitis. There is mild stranding of the fat adjacent to the pancreatic head with no focal
collection. Mild to moderate subcutaneous edema greatest in the lateral flanks.
Echo: 05/01/25- Normal biventricular size and systolic function without regional wall motion abnormality. LV ejection fraction is 55-60% by visual assessment. Normal diastolic function. No significant valvular disease. No obvious vegetation. No
prior study available for comparison.
Reports and relevant images were personally reviewed.
Subjective Data
-
Date of Service:
Date of Service: May 10, 2025
Chief Complaint: Pulmonary Follow Up and Dyspnea Follow Up
Subjective:
Patient comfortably lying in bed in no acute distress. Reports that his breathing has gradually been improving.
Review of Systems
Genitourinary: Other (No new symptoms reported.)
Objective Data
Data Reviewed
Vital Signs / I&O / Oxygen:
Vital Signs
Temp Pulse Resp BP Pulse Ox
97.6 F 93 26 152/70 90
05/10/25 08:00 05/10/25 06:00 05/10/25 06:00 05/10/25 06:00 05/10/25 06:00
Intake and Output
05/09/25 05/10/25 05/11/25
06:59 06:59 06:59
Intake Total 3748 / 3748 480 / 480
Output Total 975 / 975 1925 / 1925
Balance 2773 / 2773 -1445 / -1445
SaO2 [CPAP/PSV] 94
SaO2 [A/C] 94
SaO2 90
Nasal Cannula flow liters per 8
minute
Physical Exam
General: Respiratory Distress (n) and Comfortable
HEENT: Normocephalic, Anicteric, Moist Mucous Membranes and Other (Thick neck)
Cardiovascular: Regular Rhythm
Respiratory: Wheeze (n), Crackles (Few basilar), Rhonchi (n) and Non-Labored Respirations
GI: Soft, Non Distended and Non Tender
Neurology: Awake and Alert
Skin: Warm, Good Color, Cyanosis (n), Jaundice and Rash
Labs/Micro/Reports
Lab Data
05/10/25 08:14
Microbiology
05/08/25 04:21 Blood/Venous Blood Culture - Preliminary
Staphylococcus aureus
05/08/25 04:21 Blood/Venous Gram Stain - Preliminary
05/07/25 18:35 Knee - Right Anaerobic Culture - Preliminary
Culture pending. Anaerobic cultures are examined after 3
days incubation. Additional information to follow.
05/07/25 18:35 Knee - Right Wound Culture - Preliminary
Staph aureus MRSA
05/07/25 18:35 Knee - Right Gram Stain - Preliminary
05/07/25 18:35 Leg - Right Anaerobic Culture - Preliminary
Culture pending. Anaerobic cultures are examined after 3
days incubation. Additional information to follow.
05/07/25 18:35 Leg - Right Wound Culture - Preliminary
Staph aureus MRSA
05/07/25 18:35 Leg - Right Gram Stain - Preliminary
05/09/25 04:01 Blood/Venous Blood Culture - Preliminary
No Growth in 24 hours- Final report to follow
05/05/25 03:34 Blood/Venous Blood Culture - Final
No Growth - Final Report
05/03/25 04:25 Blood/Venous Blood Culture - Final
Staph aureus MRSA
05/03/25 04:25 Blood/Venous Gram Stain - Final
05/02/25 03:16 Blood/Venous Blood Culture - Final
Staph aureus MRSA
05/02/25 03:16 Blood/Venous Gram Stain - Final
05/07/25 04:55 Blood/Venous Blood Culture - Preliminary
Staph aureus MRSA
05/07/25 04:55 Blood/Venous Gram Stain - Preliminary
05/04/25 03:13 Blood/Venous Blood Culture - Final
No Growth - Final Report
05/06/25 08:16 Blood/Venous Blood Culture - Preliminary
Staph aureus MRSA
05/06/25 08:16 Blood/Venous Gram Stain - Preliminary
05/06/25 13:19 Synovial Fluid Body Fluid Culture - Final
Staph aureus MRSA
05/06/25 13:19 Synovial Fluid Gram Stain - Final
[2025-05-10 11:00] LABS: Blood Urea Nitrogen 12 mg/dl (9-20); Calcium 7.9 mg/dl (8.4-10.2); Chloride 100 mmol/L (98-107); Estimated Creatinine Clearance > 125 ml/min; Glucose 160 mg/dl (70-99); Potassium 4.2 mmol/L (3.5-5.1); Sodium 140 mmol/L (135-145); eGFR > 60.00
[2025-05-10] MEDS: CUBICIN 20 MG IV (11:00)
[2025-05-10 11:09] LABS: Carbon Dioxide 40 mmol/L (22-30)
[2025-05-10] MEDS: LASIX 40 MG IV (11:35)
[2025-05-10] MEDS: LOVENOX 40 MG SC (16:55)
[2025-05-10] MEDS: ATIVAN 0.5 MG PO (17:17)
[2025-05-10] MEDS: DUONEB 3 ML INH (17:20)
--- NOTE | 2025-05-10 19:31 | PTCARENOTE ---
dayshift note. see nursing assessment. midline placed by iv team today. right arm with continued swelling. ultrasound ordered. pt given 40 mg iv lasix per order and diuresed large amount. unable to measure full amount as pt was mostly incontinent.
pt eating pudding when not fully upright this afternoon and had coughing episode. pt coughed up small amount chocolate pudding. neb given. all drinks and pudding removed from pts bedside table. explained to pt that he must be upright when eating. pt
remains on 15 liters midflow. use of Is and acapella encouraged.
--- NOTE | 2025-05-10 23:17 | PTCARENOTE ---
Assumed care of pt from dayshift RN. Pt ox3, drowsy, flat and forgetful at times. NSR on monitor, hr 80s. SpO2 96% on Bipap. Vital signs and assessment as documented. PRN oxycodone administered for 9/10 pain throughout his right leg (see NOV).
wound care completed. Pt is currently asleep in bed with call finley in reach.
[2025-05-11] VITALS (24 sets, daily range): BP systolic 128–200; BP diastolic 61–94; PULSE 2–90; BMI 36.8
[2025-05-11] MEDS: ROXICODONE 20 MG PO (01:46)
--- NOTE | 2025-05-11 02:26 | PTCARENOTE ---
Pt removed his bipap and SpO2 dropped from 92% to low 70s. Pt placed on 15L MFNC and NRB, SpO2 increased to 93%. Magdiel RT made aware. Pt c/o 10/10 pain in his right leg, PRN oxycodone administered (see MAR). RT placed patient back on Bipap, SpO2
currently 93%. Pt now resting in bed with call finley in reach.
[2025-05-11 04:43] LABS: Hematocrit 31.1 % (39.0-52.0); Hemoglobin 9.2 g/dL (13.0-18.0); Mean Corp Hgb Conc. 29.6 g/dL (33.0-37.0); Mean Corpuscular Volume 91.2 fL (80.0-94.0); Nucleated Red Blood Cells % 0 % (-); Platelet Count 606 10^3/uL (130-400); Red Cell Dist. Width 15.9 % (11.5-14.5)
[2025-05-11 04:56] LABS: Blood Urea Nitrogen 10 mg/dl (9-20); Calcium 8.0 mg/dl (8.4-10.2); Chloride 93 mmol/L (98-107); Estimated Creatinine Clearance > 125 ml/min; Glucose 113 mg/dl (70-99); Magnesium 1.8 mg/dl (1.6-2.3); Potassium 4.5 mmol/L (3.5-5.1); Sodium 140 mmol/L (135-145); eGFR > 60.00
[2025-05-11 05:17] LABS: Carbon Dioxide 48 mmol/L (22-30)
--- NOTE | 2025-05-11 06:49 | W.PN.UPDATE ---
Update Note
Progress Note Update
Asked to see patient for increase O2 needs, patient on 15L midflo with non rebreather, sat 94%. CO2 48. Per RN, patient did not wear his Bipap a lot overnight. Asked for Bipap to be placed back on patient as tolerated.
AM CXR looks to have complete white out on the right side. TT to irrigation teacher [employer], Dr. Bethea, to update on CXR, O2 sat and am labs. Dr. Bethea to see patient.
Evaluated patient at bedside, RR 30-40, BP elevated 194/81, HR 93, O2 sat down to 70's, patient unable to tolerate Bipap, placed back on 15L midflow with non-rebreather. O2 sat 93%, Resp 31, BP 169/69.
--- NOTE | 2025-05-11 07:30 | PTCARENOTE ---
Notified MIX HOUSE OPERATOR that CXR picture was taken and requested that she come to bedside to see patient for increase O2 needs, patient on 15L MFNC with NRB, SpO2 94%, Pt c/o 10/10 pain in his right leg. Rx placed by MIX HOUSE OPERATOR for pain medication. Pt placed back
on bipap per IMAGE ASSEMBLER request.
--- NOTE | 2025-05-11 07:51 | W.PN.HOSP.TC ---
Today's Communication/Plan
-
CT Chest
IV Lasix
IV Dapto/Linezolid
appreciate consultants
PT/OT - eventual SNF
Assessment / Plan
Assessment / Plan
Mr. Patrice Mera is a 50 yo man with hx polysubstance abuse, prior CVA (thalamic bleed; right hemiplegia), essential HTN, admitted 04/30 with septic shock 2/2 MRSA bacteremia, SINDY with anion gap metabolic acidosis and hypoxemic respiratory failure.
He is found to have septic joint right knee and development of necrotizing fasciitis.
Venous Dopplers lower extremity-no DVT noted
Echo 05/01/2025-normal biventricular size and systolic function. EF 55 to 60% no vegetation
CT right lower extremity with contrast-subcutaneous stranding within the soft tissues of the anterior thigh and below the knee. No abscess. Moderate suprapatellar joint effusion with areas of loculation. Moderate pelvic free fluid of unknown
etiology. Right inguinal and right iliac chain lymphadenopathy which may be reactive, neoplastic enlargement is not excluded.
Chest x-ray reviewed by me-bilateral infiltrates/edema
LENNY-right LENNY 0.75 and left LENNY 0.83 TBI were obtainable. Doppler waveforms at the ankle bilaterally shows artifacts but remain multiphasic
Renal ultrasound-unremarkable renal ultrasound. Bilateral pleural effusions
CT PE study-no evidence of central PE. Extensive bilateral cavitary nodular opacities compatible with bilateral cavitary pneumonia likely based on septic emboli. Small to moderate bilateral pleural effusions. Gynecomastia. Small amount of
ascites in the right upper quadrant adjacent to the liver.
JEAN 05/06/25
SUMMARY
1. Hyperdynamic left ventricular function.
2. Left ventricular systolic function is greater than 75% by visual assesment.
3. No evidence of any valvular vegetations.
4. Trace mitral valve regurgitation.
Acute respiratory failure, VDRF
-patient was intubated on admission for multiple reasons in setting of septic shock, pneumonia, septic emboli
-CTA without PE
-s/p self extubation on 05/05
-cleared for diet
-weaned to 8L oxygen pre-op 05/09, back on 15L post-op (05/10); and now increasing to high flow (05/11)
-CT Chest ordered per Pulmonary
-will give additional Lasix today
MRSA Bacteremia
Septic Shock - patient was on Levo, Vaso, Epi, Giapreza; now off pressors
Septic Arthritis Right Knee
Necrotizing Fasciitis right medial thigh and calf
- JEAN 05/06 without e/o vegetation
- right knee joint aspirate positive for MRSA 05/06
- exam 05/07 with new concern for necrotizing fasciitis right medial thigh and calf
- appreciate general surgery and ortho, patient is s/p I&D of necrotizing soft tissue infection and washout right knee on 05/07/25
- 05/07 antibiotics changed to IV Daptomycin, oral Linezolid
- blood cultures remain positive from 05/09
- daily blood cultures ordered
Right second toe infection Gangrene
-appreciate ID and Podiatry
-antibiotics as above
-arterial US with multiphasic waveforms
-wound care betadine soaked gauze to toe - change every day
-patient is s/p right second toe amputation on 05/09
# Acute kidney injury - ATN in setting of septic shock
Metabolic Acidosis
-Patient briefly required CRRT but could not tolerate long
-Ultrasound of the kidneys without obstruction
-appreciate Renal
- SINDY now resolved
- haney discontinued on 05/06
# Anasarca
# Hypoalbuminemia
-additional IV Lasix today
# Drug abuse urine drug screen positive for Fentanyl, Benzos, Amphetamines and Methamphetamines
Patient was discharged to a rehab last admission however he stayed there only for 2 days and signed himself out
# Multidrug resistant hypertension-currently blood pressure stable without medicines.
Patient was on Coreg, losartan, clonidine, Aldactone as outpatient.
-*resume 1/2 dose Coreg (05/07)
- resume 1/2 dose Losartan (05/08)
-patient was started on standing Clonidine in the ICU post precedex - decrease to q12H (05/09/25)
-resume Spironolactone (05/11)
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 Transferred to [place] . Pt says he was there for 3 months and has weakness of right side and facial droop. Pt appropriately responding.
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
*confirmed cannot get MRI here given shunt
#Chronic back pain
#Morbid obesity with a BMI of 35- Weight loss recommended
#History of nephrolithiasis
#Possible sleep apnea-needs outpatient study as OP.
#ADHD
#Hepatic steatosis per prior imaging-outpatient follow-up
# Active smoker-cessation counseling when able
#DVT prophylaxis-Lovenox
#Full code
patient's daughter, Any, updated daily
51 minutes spent on patient care
Anticipated Discharge: > 48 hours
Subjective/Interval History
-
Date of Service: May 11, 2025
patient focused on drinking
his oxygen needs are up overnight, he is now requiring high flow
Objective Data
-
Labs:
Laboratory Results
05/11/25
04:08
WBC 19.6 H
Hgb 9.2 L
Hct 31.1 L
Plt Count 606 H
Sodium 140
Potassium 4.5
Chloride 93 L
Carbon Dioxide 48 H
BUN 10
Creatinine 0.6 L
Glucose 113 H
Calcium 8.0 L
Vital Signs:
Vital Signs
Temp Pulse Resp BP Pulse Ox
97.9 F 92 30 169/69 91
05/11/25 03:00 05/11/25 06:39 05/11/25 06:39 05/11/25 06:39 05/11/25 06:39
I&O
05/10/25 05/11/25 05/12/25
06:59 06:59 06:59
Intake Total 480 / 480 960 / 960
Output Total 1925 / 192 1365 / 1365
Balance -1445 / -1445 -405 / -405
Review of Systems
-
History Source: Patient
All other systems: Reviewed and negative
Physical Exam
-
General: Obese and Other (tachypneic )
HEENT: PERRLA
Respiratory: Negative Wheezes
Cardiac: Regular Rhythm and S1/S2
GI: Soft and Nontender
Musculoskeletal: Other (right knee wrapped in gauze with some serosanguinous drainage ; right 2nd toe wrapped )
Neuro: AO x 3 and Other (expressive aphasia, right hemiparesis )
Psych: Calm
Data Reviewed
-
Diagnostic Radiology: Report Reviewed by me
Labs: Labs Reviewed by me
[2025-05-11] MEDS: CATAPRES PO (07:53)
[2025-05-11] MEDS: COREG PO (07:54)
[2025-05-11] MEDS: COZAAR PO (07:54)
[2025-05-11] MEDS: COLACE PO (07:54)
[2025-05-11] MEDS: PROTONIX PO (07:55)
[2025-05-11] MEDS: DRISDOL (VITAMIN D2) PO (07:55)
[2025-05-11] MEDS: MYCOSTATIN ORAL SUSPENSION PO (07:55)
[2025-05-11] MEDS: ZYVOX PO (07:55)
[2025-05-11] MEDS: MIRALAX PO (07:55)
[2025-05-11] MEDS: DILAUDID 0.25 MG IV (07:56)
[2025-05-11] MEDS: LASIX 40 MG IV (07:57)
--- NOTE | 2025-05-11 08:10 | W.PN.ID1 ---
Date of Service
Date of Service: May 11, 2025
Today's Communication
Continue antibiotics. Follow cultures. Follow white count. Continue with supportive care.
Assessment / Plan
Sustained complicated MRSA bacteremia -persists
Pulmonary septic emboli vs cavitary MRSA PNA
Septic right knee
Right thigh and calf necrotizing soft tissue infection
Right second toe infection/gangrene/osteomyelitis
Fever -resolving
Leukocytosis -stable
s/p Hypoxemic respiratory failure, self extubated 05/05
SINDY resolved
Substance abuse (UDS with fentanyl, amphetamine, methamphetamine, benzodiazepine)
Hx CVA (thalamic bleed) with right hemiplegia
Chronic back pain
Recommendations:
TTE without noted valvular disease.
05/06/25 JEAN: NO VALVULAR VEGETATION
Blood cx's remain positive
Continue Serial blood cultures to assess ongoing bacteremia (ordered for 06/10 -06/13)
Sputum cx MRSA
05/06 R knee fluid: 41,220 WBC, 54% polys, neg crystals.
Synovial cx MRSA
Appreciate Ortho: 05/07 s/p washout of R knee (+PUS). Cx MRSA
Appreciate general surgery 05/07 s/p I+D right thigh and calf. Cx MRSA
05/09 s/p R 2nd toe amputation
Continue Daptomycin IV (d4). Monitor CK. Will discuss with Clinical ID Pharmacist regarding increasing dose.
Continue linezolid (d4) for MRSA PNA, since Dapto does not penetrate lung tissue. Alternative may be ceftaroline.
Monitor for bone marrow suppression while on linezolid.
Follow CBC
����������������������������������������������������������
Chief Complaint
-: Clinical Sepsis and Bacteremia
Subjective / Review of Systems
Patient seen and examined. Denies specific complaints at present.
Vital Signs / Physical Exam
Vital Signs
Vital Signs
Temp Pulse Resp BP Pulse Ox
97.9 F 92 30 169/69 91
05/11/25 03:00 05/11/25 07:57 05/11/25 06:39 05/11/25 07:57 05/11/25 06:39
Physical Exam
Constitutional: Acutely Ill and Chronically Ill
Eyes: Sclera Anicteric
Cardiovascular: Regular Rate and S1/S2
Pulmonary: Coarse, Non Labored and Other (High flow O2 in place.)
Gastrointestinal: Soft, Non Tender and Normal Bowel Sounds
Extremities: Edema
Wound: Other (RLE dressing dry)
Neurological: Awake and Alert
Lines: Other (midline no erythema)
Objective Data
Lab Data
Lab Results
05/11/25 04:08
05/11/25 04:08
PT 20.0 Sec (11.4-14.6) H 04/30/25 19:46
INR 1.65 04/30/25 19:46
APTT Cancelled 05/04/25 14:45
Estimated Creat Clear > 125 ml/min 05/11/25 04:08
Lactic Acid 1.9 mmol/L (0.7-2.0) 05/01/25 12:18
Total Bilirubin 1.8 mg/dl (0.2-1.3) H 05/01/25 12:18
AST 38 U/L (17-59) 05/01/25 12:18
ALT 17 U/L (0-50) 05/01/25 12:18
Alkaline Phosphatase 71 U/L (38-126) 05/01/25 12:18
Most recent labs reviewed.
Micro Results:
05/09/25 04:01 Blood Culture - Preliminary
Blood/Venous Positive culture in progress
Gram Stain - Preliminary
05/08/25 04:21 Blood Culture - Preliminary
Blood/Venous Staphylococcus aureus
Gram Stain - Preliminary
05/07/25 18:35 Anaerobic Culture - Preliminary
Knee - Right Culture pending. Anaerobic cultures are examined after 3
days incubation. Additional information to follow.
05/07/25 18:35 Wound Culture - Preliminary
Knee - Right Staph aureus MRSA
Gram Stain - Preliminary
05/07/25 18:35 Anaerobic Culture - Preliminary
Leg - Right Culture pending. Anaerobic cultures are examined after 3
days incubation. Additional information to follow.
05/07/25 18:35 Wound Culture - Preliminary
Leg - Right Staph aureus MRSA
Gram Stain - Preliminary
05/05/25 03:34 Blood Culture - Final
Blood/Venous No Growth - Final Report
05/03/25 04:25 Blood Culture - Final
Blood/Venous Staph aureus MRSA
Gram Stain - Final
05/02/25 03:16 Blood Culture - Final
Blood/Venous Staph aureus MRSA
Gram Stain - Final
05/07/25 04:55 Blood Culture - Preliminary
Blood/Venous Staph aureus MRSA
Gram Stain - Preliminary
05/04/25 03:13 Blood Culture - Final
Blood/Venous No Growth - Final Report
05/06/25 08:16 Blood Culture - Preliminary
Blood/Venous Staph aureus MRSA
Gram Stain - Preliminary
05/06/25 13:19 Body Fluid Culture - Final
Synovial Fluid Staph aureus MRSA
Gram Stain - Final
04/30/25 19:46 Blood Culture - Final
Blood/Venous Staph aureus MRSA
Gram Stain - Final
05/04/25 09:25 Respiratory Culture - Final
Endotracheal Staph aureus MRSA
Gram Stain - Final
05/01/25 17:45 Blood Culture - Final
Blood/Venous Staph aureus MRSA
Gram Stain - Final
04/30/25 19:46 Blood Culture - Final
Blood/Venous Staph aureus MRSA
Gram Stain - Final
05/01/25 01:32 Urine Culture - Final
Urine Yeast
05/01/25 01:17 Blood Parasites Smear - Final
Blood/Venous
04/30/25 23:02 Influenza Types A & B (GIORGIO) - Final
Nasal Swab Negative for Influenza A & B, NAAT
Negative results must be combined with clinical observations
and patient history.
Nucleic Acid Amplification test (NAAT)performed on the
[employer] platform.
Imaging:
05/02/25 CT RLE: Subcutaneous stranding within the soft tissues of the anterior right thigh, and [id number] anterior soft tissues. No drainable abscess is appreciated. Moderate suprapatellar joint effusion, with areas of loculation.
05/01/2025 ECHO (TTE): EF 55%. Normal biventricular size and systolic function. No significant valvular disease. No obvious vegetations.
05/01/2025 CXR (portable): bilateral interstitial and airspace disease noted which may reflect pulmonary edema or pneumonia. Small bilateral pleural effusions noted. Please see full dictation for additional detail.
05/01/2025 Abdominal x-ray. Enteric tube noted in stomach.
05/01/2025 Renal ultrasound: unremarkable renal ultrasound without hydronephrosis, contour deforming solid renal mass or echogenic shadowing foci to suggest renal calculi. Bilateral pleural effusions noted.
05/01/2025 Duplex ultrasound lower extremity: no evidence of DVT in the bilateral lower extremities
04/30/2025 X-ray right foot: soft tissue injury versus ulceration involving the second digit with soft tissue swelling. The cortex of the distal phalanx is indistinct and the possibility of osteomyelitis cannot be excluded. There is soft tissue
swelling of the first digit. No radiographic evidence to suggest osteomyelitis. Please see full dictation for additional detail.
[2025-05-11] MEDS: ALDACTONE PO (08:12)
--- NOTE | 2025-05-11 09:30 | W.PN.POD ---
Today's Communication
Today's Communication
S/P right 2nd toe amputation
Assessment / Plan
-
S/P Right 2nd toe amputation secondary to gangrenous changes with exposed bone
MRSA bacteremia
Plan:
Bandages changed at bedside - 4x4's kerlex. May weightbear as tolerated in a surgical shoe. follow up as outpatient for suture removal in 2 weeks. Offload heels in bed.
Subjective
Chief Complaint
S/P right 2nd toe amputation
Subjective
Patient seen at bedside. Awake but not conversational
Objective
Temp Pulse Resp BP Pulse Ox
97.9 F 92 30 169/69 92
05/11/25 03:00 05/11/25 07:57 05/11/25 06:39 05/11/25 07:57 05/11/25 08:20
05/11/25 04:08
05/11/25 04:08
Vital Signs and Lab results were reviewed.
Physical Exam
Physical Exam
Right foot with bandages in place, no strikethrough. palpable pulses, normal proximal to distal cooling to the foot, chronic lymphedema and venous stasis changes. 2nd toe amputation site with sutures in place well approximated. No erythema, no
driange, no signs of infection. Small fibrotic wound on medial heel. No periwound erythema, no fluid expressed.
[2025-05-11] MEDS: DAKIN'S SOLUTION 0.125% 1/4 STRENGTH 473 ML TOPICAL (10:25)
[2025-05-11] MEDS: DESENEX/MITRAZOL/ZEASORB 1 APPLIC TOPICAL ×2 (10:25→21:26)
[2025-05-11] MEDS: SOLU-MEDROL PF 40 MG IV (10:26)
[2025-05-11] MEDS: HYDROPHOR 1 APPLIC TOPICAL (10:26)
[2025-05-11] MEDS: CUBICIN 20 MG IV (10:29)
--- NOTE | 2025-05-11 10:32 | W.PN.PUL3 ---
Addendum entered and electronically signed by Mariana Bethea MD 05/11/25 10:51:
Patient reevaluated after being transitioned to high flow nasal cannula.
Currently on 100% FiO2, 55 L flow. Respiratory rate has improved now down to high 20s to about 30, patient reports improving dyspnea.
Monitor closely in IMU, low threshold to transfer to ICU.
Original Note:
Today's Communication / Plan
-
- Initiate high flow nasal cannula, hold off BiPAP
- Add Solu-Medrol 40 mg IV daily for 5 to 7 days considering severity of pneumonia
- Follow-up chest x-ray in a.m.
Assessment
-
Patient is a 50-year-old male with previous history of opiate use disorder, left thalamic intracranial hemorrhage, presenting to ER with complaints of chest pain, shortness of breath and right toe pain. He arrived in the ER in apparent
respiratory distress with increased work of breathing. He was tried on BiPAP but could not tolerate it. He was admitted here recently in January for opiate use disorder and withdrawal symptoms. UDS is positive for fentanyl, amphetamines,
benzodiazepines. Chest x-ray demonstrating mild left lower lobe pneumonia, he is on HFNC (PAO2 on ABG 73). Admitted to ICU for hypoxemia.
Profound septic shock on 4 pressors: levo, vaso, epi, giapreza--improved now off pressors
Bilateral septic emboli on CAT scan.
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
Acute hypoxic respiratory failure on high flow nasal cannula-->
-Now on daptomycin intubation 05/01
Extubated 05/05/2025.
Metabolic acidosis-resolved
Acute kidney injury, creatinine 6.9-resolved
MRSA endocarditis with pulmonary septic emboli.
Tick bite-negative serology
Possible skin infection/cellulitis
UDS +Fent, benzos, amphetamines
Conditions present CLIN NURSE SPEC:
Cellulitis left lower extremity
Hypertensive urgency
Opiate abuse with withdrawal
Microscopic hematuria, Albuminuria noted in the urine
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
Leukocytosis- elevated since 2008 labs
Chronic back pain
Morbid obesity with a BMI of 39
History of nephrolithiasis
Possible sleep apnea-needs outpatient study asleep
ADHD
Hepatic steatosis per prior imaging
Active smoker
Assessment and plan:
#1. MRSA bacteremia with septic shock
- Shock has since resolved, patient off pressors, hemodynamically stable, MAP of 8 this AM
- Antimicrobial therapy per infectious disease service, currently on dual therapy with daptomycin and linezolid.
#2. Acute hypoxic respiratory failure with bilateral cavitary pneumonia/septic emboli with bilateral pleural effusions
- 05/11/2025: Worsening hypoxia, switch to high flow nasal cannula. Chest x-ray showed worsening right-sided opacity. CT chest was pursued which showed significant worsening of underlying consolidation with essentially necrotizing pneumonia on the
right side. Pleural effusion still fairly small hold off on drainage for now. Add IV Solu-Medrol 40 daily in view of severity of underlying pneumonia. Poor prognosis considering patient is persistently bacteremic with worsening consolidation,
ongoing necrosis. Will discuss with infectious disease service regarding antibiotics currently linezolid twice daily, should have good parenchymal penetration.
- MRSA noted on cultures, currently on IV antibiotics
- Intubated 05/01, extubated 05/05.
- Switch to high flow nasal cannula. Monitor closely in IMU. Low threshold to transfer to ICU.
- Hold off BiPAP for now and continue with high flow nasal cannula
- Incentive spirometry, Acapella/flutter valve, activity as tolerated
- Small pleural effusion on the right and small to moderate on the left. Patient morbidly obese, tenuous respiratory status. Hold off pleural fluid drainage for now.
Cultures reviewed
Persistent staph
Infectious disease following-correspondence reviewed
Tick noted-serology negative
Continue antibiotics, vancomycin discontinued-now on daptomycin and linezolid
Pressors weaned-was on 4 pressors including giapreza-now off with normal function and
Echocardiogram with normal function and no evidence for endocarditis
JEAN 05/06/2025: Hyperdynamic left ventricle. Left ventricular systolic function greater than 75%. No evidence for any valvular vegetations. Trace mitral valve regurgitation.
Podiatry following-correspondence reviewed.
Right second toe amputation 05/09/25
Orthopedics following-correspondence reviewed
Irrigation admitted with arthrotomy right septic knee 05/06/2025
Monitor renal function
SINDY resolved
Nephrology following-correspondence reviewed prophylaxis
DVT-mechanical as well as Lovenox
GI prophylaxis-on pantoprazole
Nutrition
Physical therapy
Outpatient pulmonary [id number] PFTs and sleep study as well as radiographic follow-up
Total time spent on this consultation/encounter __53__ minutes which includes review of history, physical exam, medications, laboratory data, personal review of imaging, extensive review of outpatient records, discussion with care team and
respiratory therapy.
Discussed with interventional radiology and infectious disease service.
Diagnostic Data
Chest X-Ray: 04/30/25- Mild left lower lobe pneumonia. Trace bilateral pleural effusions.
CT Scan: CT head 01/2025: There is a ventricular shunt present which enters from the right superior frontal region, with tip of the shunt to the junction of the inferior frontal horn of the right lateral ventricle and the third ventricle. There is
decreased size of the right lateral ventricle when compared to the left, and slight shift of the septum pellucidum toward the left, and findings suggest peripheral arterial shunting of the right lateral ventricle when compared to the left. There is
no evidence of acute intracranial hemorrhage. In the inferior aspect of the left thalamus, there is a small focal area of decreased density measuring 1.5 cm transverse by 0.8 cm AP, compatible with encephalomalacia from previous region of
intracranial hemorrhage. No abnormal extra-axial collection is identified. There is 80% opacification of the sphenoid sinus, slightly improved from previous examination. The rest of the paranasal sinuses appear clear. The mastoid air cells appear
clear.
AP 02/23/25- 2 small nephroliths within the posterior upper pole the right kidney. As described, evidence for blood products/hematoma within the calyces of the upper pole of the right kidney. Wall of the urinary bladder appears mildly diffusely
thickened, which may be on the basis of incomplete distention, but correlate clinically to exclude cystitis. Mild hepatomegaly with no focal hepatic lesion. Thickening of the wall the duodenum extending from the duodenal bulb contiguously through
the distal third portion, with stranding of the adjacent fat. Main differential considerations of primary duodenitis, versus reactive duodenitis from pancreatitis. There is mild stranding of the fat adjacent to the pancreatic head with no focal
collection. Mild to moderate subcutaneous edema greatest in the lateral flanks.
Echo: 05/01/25- Normal biventricular size and systolic function without regional wall motion abnormality. LV ejection fraction is 55-60% by visual assessment. Normal diastolic function. No significant valvular disease. No obvious vegetation. No
prior study available for comparison.
Reports and relevant images were personally reviewed.
Subjective Data
-
Date of Service:
Date of Service: May 11, 2025
Chief Complaint: Pulmonary Follow Up and Dyspnea Follow Up
Subjective:
Patient continued to have dyspnea and increased oxygen requirement over last 24 hours.
Review of Systems
Genitourinary: Other (All 14 systems reviewed and negative except as stated above in the history of present illness.)
Objective Data
Data Reviewed
Vital Signs / I&O / Oxygen:
Vital Signs
Temp Pulse Resp BP Pulse Ox
99.2 F 92 30 169/69 92
05/11/25 07:20 05/11/25 07:57 05/11/25 06:39 05/11/25 07:57 05/11/25 08:20
Intake and Output
05/10/25 05/11/25 05/12/25
06:59 06:59 06:59
Intake Total 480 / 480 960 / 960
Output Total 1925 / 1925 1365 / 1365
Balance -1445 / -1445 -405 / -405
SaO2 [CPAP/PSV] 94
SaO2 [A/C] 94
SaO2 92
Nasal Cannula flow liters per 15
minute
Physical Exam
General: Respiratory Distress (n) and Comfortable
HEENT: Normocephalic, Anicteric, Moist Mucous Membranes and Other (Thick neck)
Cardiovascular: Regular Rhythm
Respiratory: Wheeze (n), Crackles (Few basilar), Rhonchi (Predominantly on right side) and Non-Labored Respirations
GI: Soft, Non Distended and Non Tender
Neurology: Awake and Alert
Skin: Warm, Good Color, Cyanosis (n), Jaundice and Rash
Labs/Micro/Reports
Lab Data
05/11/25 04:08
05/11/25 04:08
Microbiology
05/08/25 04:21 Blood/Venous Blood Culture - Preliminary
Staph aureus MRSA
05/08/25 04:21 Blood/Venous Gram Stain - Preliminary
05/09/25 04:01 Blood/Venous Blood Culture - Preliminary
Positive culture in progress
05/09/25 04:01 Blood/Venous Gram Stain - Preliminary
05/07/25 18:35 Knee - Right Anaerobic Culture - Preliminary
Culture pending. Anaerobic cultures are examined after 3
days incubation. Additional information to follow.
05/07/25 18:35 Knee - Right Wound Culture - Preliminary
Staph aureus MRSA
05/07/25 18:35 Knee - Right Gram Stain - Preliminary
05/07/25 18:35 Leg - Right Anaerobic Culture - Preliminary
Culture pending. Anaerobic cultures are examined after 3
days incubation. Additional information to follow.
05/07/25 18:35 Leg - Right Wound Culture - Preliminary
Staph aureus MRSA
05/07/25 18:35 Leg - Right Gram Stain - Preliminary
05/05/25 03:34 Blood/Venous Blood Culture - Final
No Growth - Final Report
05/03/25 04:25 Blood/Venous Blood Culture - Final
Staph aureus MRSA
05/03/25 04:25 Blood/Venous Gram Stain - Final
05/02/25 03:16 Blood/Venous Blood Culture - Final
Staph aureus MRSA
05/02/25 03:16 Blood/Venous Gram Stain - Final
05/07/25 04:55 Blood/Venous Blood Culture - Preliminary
Staph aureus MRSA
05/07/25 04:55 Blood/Venous Gram Stain - Preliminary
05/04/25 03:13 Blood/Venous Blood Culture - Final
No Growth - Final Report
05/06/25 08:16 Blood/Venous Blood Culture - Preliminary
Staph aureus MRSA
05/06/25 08:16 Blood/Venous Gram Stain - Preliminary
05/06/25 13:19 Synovial Fluid Body Fluid Culture - Final
Staph aureus MRSA
05/06/25 13:19 Synovial Fluid Gram Stain - Final
--- NOTE | 2025-05-11 11:08 | PTCARENOTE ---
Pt looking more comfortable on HFNC - 60L and 100%. Ok for clear liquids per Dr Bethea - starting w/ swabs and tolerating well thus far. Frequent productive cough w/ thick/brown sputum.
--- NOTE | 2025-05-11 11:59 | RESPNOTE ---
Transport on HFNC from IMU to CT Scan without incident at 0820
[2025-05-11] MEDS: ROXICODONE 10 MG PO ×2 (12:33→18:10)
[2025-05-11] MEDS: MYCOSTATIN ORAL SUSPENSION 5 ML PO ×3 (12:34→21:26)
[2025-05-11] MEDS: TYLENOL ORAL SOLUTION 650 MG PO ×2 (12:55→18:10)
[2025-05-11 13:08] LABS: LDH 303 U/L (120-246); Total Protein 7.2 g/dl (6.3-8.2)
--- NOTE | 2025-05-11 13:19 | PTCARENOTE ---
Pt found to have axillary temp of 101 - Tylenol administered. Has been incontinent of large amount of urine several times. Remains on HFNC w/ SPO2 94%. Pt currently sleeping.
--- NOTE | 2025-05-11 13:41 | CM ---
Patient seen at bedside in IMU. Patient now on high flow O2. CM will continue to follow for discharge planning needs.
Plan; SNF when medically appropriate.
[2025-05-11] MEDS: CUBICIN 26 MG IV (16:29)
[2025-05-11] MEDS: TEFLARO 270 MG IV ×2 (16:30→23:23)
[2025-05-11] MEDS: LOVENOX 40 MG SC (18:11)
[2025-05-11] MEDS: COREG 12.5 MG PO (21:25)
[2025-05-11] MEDS: CATAPRES 0.2 MG PO (21:26)
[2025-05-11] MEDS: ZYVOX 600 MG PO (21:26)
[2025-05-11] MEDS: COLACE 100 MG PO (21:26)
[2025-05-12] VITALS (26 sets, daily range): BP systolic 135–191; BP diastolic 70–102; BMI 36.8
[2025-05-12] MEDS: ROXICODONE 10 MG PO (01:16)
[2025-05-12] MEDS: TYLENOL ORAL SOLUTION 650 MG PO ×2 (01:21→10:46)
[2025-05-12 05:54] LABS: B.E. 22.5 mmol/L; O2 Saturation % 95.8 % (94-98); PCO2 64 mmHg (35-48); PO2 62 mmHg (83-108)
[2025-05-12 05:55] LABS: HCO3 48.8 mmol/L (21-28); O2 Therapy HFNC
[2025-05-12 06:01] LABS: Hematocrit 29.3 % (39.0-52.0); Hemoglobin 9.1 g/dL (13.0-18.0); Mean Corp Hgb Conc. 31.1 g/dL (33.0-37.0); Mean Corpuscular Volume 87.7 fL (80.0-94.0); Nucleated Red Blood Cells % 0 % (-); Platelet Count 651 10^3/uL (130-400); Red Cell Dist. Width 15.6 % (11.5-14.5)
[2025-05-12 06:06] LABS: Blood Urea Nitrogen 15 mg/dl (9-20); Calcium 8.2 mg/dl (8.4-10.2); Chloride 91 mmol/L (98-107); Estimated Creatinine Clearance > 125 ml/min; Glucose 120 mg/dl (70-99); Potassium 4.3 mmol/L (3.5-5.1); Sodium 137 mmol/L (135-145); eGFR > 60.00
[2025-05-12 06:26] LABS: Carbon Dioxide 44 mmol/L (22-30)
--- NOTE | 2025-05-12 07:16 | W.PN.PUL3 ---
Today's Communication / Plan
-
- Continue to wean FiO2 as tolerated
- Advance diet as tolerated
- ABG in a.m.
Assessment
-
Patient is a 50-year-old male with previous history of opiate use disorder, left thalamic intracranial hemorrhage, presenting to ER with complaints of chest pain, shortness of breath and right toe pain. He arrived in the ER in apparent
respiratory distress with increased work of breathing. He was tried on BiPAP but could not tolerate it. He was admitted here recently in January for opiate use disorder and withdrawal symptoms. UDS is positive for fentanyl, amphetamines,
benzodiazepines. Chest x-ray demonstrating mild left lower lobe pneumonia, he is on HFNC (PAO2 on ABG 73). Admitted to ICU for hypoxemia.
Profound septic shock on 4 pressors: levo, vaso, epi, giapreza--improved now off pressors
Bilateral septic emboli on CAT scan.
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
Acute hypoxic respiratory failure on high flow nasal cannula-->
-Now on daptomycin intubation 05/01
Extubated 05/05/2025.
Metabolic acidosis-resolved
Acute kidney injury, creatinine 6.9-resolved
MRSA endocarditis with pulmonary septic emboli.
Tick bite-negative serology
Possible skin infection/cellulitis
UDS +Fent, benzos, amphetamines
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
Cellulitis left lower extremity
Hypertensive urgency
Opiate abuse with withdrawal
Microscopic hematuria, Albuminuria noted in the urine
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
Leukocytosis- elevated since 2008 labs
Chronic back pain
Morbid obesity with a BMI of 39
History of nephrolithiasis
Possible sleep apnea-needs outpatient study asleep
ADHD
Hepatic steatosis per prior imaging
Active smoker
Assessment and plan:
#1. MRSA bacteremia with septic shock
- Shock has since resolved, patient off pressors, hemodynamically stable, MAP of 8 this AM
- Antimicrobial therapy per infectious disease service, had been on dual therapy with daptomycin and linezolid. Ceftaroline added on 05/11.
#2. Acute hypoxic respiratory failure with bilateral cavitary pneumonia/septic emboli with bilateral pleural effusions
- 05/12. Patient appears more comfortable. Currently on high flow nasal cannula, FiO2 down to 70%, on 55 L, saturating 93%, respiratory rate around 30. ABG today 7.4 . Continue to monitor in IMU. Advance diet as tolerated.
- 05/11/2025: Worsening hypoxia, switched to high flow nasal cannula. Chest x-ray showed worsening right-sided opacity. CT chest was pursued which showed significant worsening of underlying consolidation with essentially necrotizing pneumonia on
the right side. Pleural effusion still fairly small hold off on drainage for now. Added IV Solu-Medrol 40 daily in view of severity of underlying pneumonia. Poor prognosis considering patient is persistently bacteremic with worsening
consolidation, ongoing necrosis.
- MRSA noted on cultures, currently on IV antibiotics
- Intubated 05/01, extubated 05/05.
- Hold off BiPAP for now and continue with high flow nasal cannula
- Incentive spirometry, Acapella/flutter valve, activity as tolerated
- Small pleural effusion on the right and small to moderate on the left. Patient morbidly obese, tenuous respiratory status. Hold off pleural fluid drainage for now.
#3. Alkalosis
- Blood gas reviewed 7.4 . Alkalosis, suspect primarily underlying metabolic alkalosis with compensatory respiratory acidosis. Patient received Lasix yesterday in addition to spironolactone, had 4.2 L urine output over last 24 hours.
Consistent with contraction alkalosis with respiratory compensation. Patient is awake alert, hold off any noninvasive ventilation for now.
- ABG in a.m.
Cultures reviewed
Persistent staph
Infectious disease following-correspondence reviewed
Tick noted-serology negative
Continue antibiotics, vancomycin discontinued-now on daptomycin and linezolid
Pressors weaned-was on 4 pressors including giapreza-now off with normal function and
Echocardiogram with normal function and no evidence for endocarditis
JEAN 05/06/2025: Hyperdynamic left ventricle. Left ventricular systolic function greater than 75%. No evidence for any valvular vegetations. Trace mitral valve regurgitation.
Podiatry following-correspondence reviewed.
Right second toe amputation 05/09/25
Orthopedics following-correspondence reviewed
Irrigation admitted with arthrotomy right septic knee 05/06/2025
Monitor renal function
SINDY resolved
Nephrology following-correspondence reviewed prophylaxis
DVT-mechanical as well as Lovenox
GI prophylaxis-on pantoprazole
Nutrition
Physical therapy
Outpatient pulmonary cynrgo-td-[id number] PFTs and sleep study as well as radiographic follow-up
Total time spent on this consultation/encounter __43__ minutes which includes review of history, physical exam, medications, laboratory data, personal review of imaging, extensive review of outpatient records, discussion with care team and
respiratory therapy.
Discussed with interventional radiology and infectious disease service.
Diagnostic Data
Chest X-Ray: 04/30/25- Mild left lower lobe pneumonia. Trace bilateral pleural effusions.
CT Scan: CT head 01/2025: There is a ventricular shunt present which enters from the right superior frontal region, with tip of the shunt to the junction of the inferior frontal horn of the right lateral ventricle and the third ventricle. There is
decreased size of the right lateral ventricle when compared to the left, and slight shift of the septum pellucidum toward the left, and findings suggest peripheral arterial shunting of the right lateral ventricle when compared to the left. There is
no evidence of acute intracranial hemorrhage. In the inferior aspect of the left thalamus, there is a small focal area of decreased density measuring 1.5 cm transverse by 0.8 cm AP, compatible with encephalomalacia from previous region of
intracranial hemorrhage. No abnormal extra-axial collection is identified. There is 80% opacification of the sphenoid sinus, slightly improved from previous examination. The rest of the paranasal sinuses appear clear. The mastoid air cells appear
clear.
AP 02/23/25- 2 small nephroliths within the posterior upper pole the right kidney. As described, evidence for blood products/hematoma within the calyces of the upper pole of the right kidney. Wall of the urinary bladder appears mildly diffusely
thickened, which may be on the basis of incomplete distention, but correlate clinically to exclude cystitis. Mild hepatomegaly with no focal hepatic lesion. Thickening of the wall the duodenum extending from the duodenal bulb contiguously through
the distal third portion, with stranding of the adjacent fat. Main differential considerations of primary duodenitis, versus reactive duodenitis from pancreatitis. There is mild stranding of the fat adjacent to the pancreatic head with no focal
collection. Mild to moderate subcutaneous edema greatest in the lateral flanks.
Echo: 05/01/25- Normal biventricular size and systolic function without regional wall motion abnormality. LV ejection fraction is 55-60% by visual assessment. Normal diastolic function. No significant valvular disease. No obvious vegetation. No
prior study available for comparison.
Reports and relevant images were personally reviewed.
Subjective Data
-
Date of Service:
Date of Service: May 12, 2025
Chief Complaint: Pulmonary Follow Up and Dyspnea Follow Up
Subjective:
Patient comfortable lying in bed on high flow nasal cannula, reports feeling marginally better compared to yesterday.
Review of Systems
Genitourinary: Other (Reports feeling hungry, all 14 systems reviewed and negative except as stated above in the history of present illness.)
Objective Data
Data Reviewed
Vital Signs / I&O / Oxygen:
Vital Signs
Temp Pulse Resp BP Pulse Ox
98.2 F 80 32 178/83 93
05/12/25 03:00 05/12/25 05:00 05/12/25 05:00 05/12/25 05:00 05/12/25 05:00
Intake and Output
05/11/25 05/12/25 05/13/25
06:59 06:59 06:59
Intake Total 960 / 960 840 / 840
Output Total 1365 / 1365 4200 / 4200
Balance -405 / -405 -3360 / -3360
SaO2 [CPAP/PSV] 94
SaO2 [A/C] 94
SaO2 93
Nasal Cannula flow liters per 60
minute
Physical Exam
General: Respiratory Distress (n) and Comfortable
HEENT: Normocephalic, Anicteric, Moist Mucous Membranes and Other (Thick neck)
Cardiovascular: Regular Rhythm
Respiratory: Wheeze (n), Crackles (Few basilar), Rhonchi (Predominantly on right side, marginally improved air entry compared to 05/11) and Non-Labored Respirations
GI: Soft, Non Distended and Non Tender
Neurology: Awake and Alert
Skin: Warm, Good Color, Cyanosis (n), Jaundice and Rash
Labs/Micro/Reports
Lab Data
05/12/25 05:34
05/12/25 05:34
Laboratory Results
05/12/25
05:40
pH 7.49 H
pCO2 64 H
pO2 62 L
HCO3 48.8 H*
O2 Delivery Level Hfnc
Microbiology
05/07/25 18:35 Leg - Right Anaerobic Culture - Preliminary
Culture pending. Anaerobic cultures are examined after 3
days incubation. Additional information to follow.
05/07/25 18:35 Knee - Right Anaerobic Culture - Preliminary
NO ANAEROBES ISOLATED
05/08/25 04:21 Blood/Venous Blood Culture - Preliminary
Staph aureus MRSA
05/08/25 04:21 Blood/Venous Gram Stain - Preliminary
05/09/25 04:01 Blood/Venous Blood Culture - Preliminary
Positive culture in progress
05/09/25 04:01 Blood/Venous Gram Stain - Preliminary
05/07/25 18:35 Knee - Right Wound Culture - Preliminary
Staph aureus MRSA
05/07/25 18:35 Knee - Right Gram Stain - Preliminary
05/07/25 18:35 Leg - Right Wound Culture - Preliminary
Staph aureus MRSA
05/07/25 18:35 Leg - Right Gram Stain - Preliminary
05/05/25 03:34 Blood/Venous Blood Culture - Final
No Growth - Final Report
05/03/25 04:25 Blood/Venous Blood Culture - Final
Staph aureus MRSA
05/03/25 04:25 Blood/Venous Gram Stain - Final
05/02/25 03:16 Blood/Venous Blood Culture - Final
Staph aureus MRSA
05/02/25 03:16 Blood/Venous Gram Stain - Final
05/07/25 04:55 Blood/Venous Blood Culture - Preliminary
Staph aureus MRSA
05/07/25 04:55 Blood/Venous Gram Stain - Preliminary
05/04/25 03:13 Blood/Venous Blood Culture - Final
No Growth - Final Report
[2025-05-12] MEDS: MIRALAX 17 GRAMS PO (09:14)
[2025-05-12] MEDS: COLACE 100 MG PO ×2 (09:14→19:50)
[2025-05-12] MEDS: COREG 12.5 MG PO ×2 (09:14→19:50)
[2025-05-12] MEDS: DESENEX/MITRAZOL/ZEASORB 1 APPLIC TOPICAL ×2 (09:14→19:52)
[2025-05-12] MEDS: ZYVOX 600 MG PO ×2 (09:15→19:50)
[2025-05-12] MEDS: CATAPRES 0.2 MG PO ×2 (09:15→19:49)
[2025-05-12] MEDS: HYDROPHOR 1 APPLIC TOPICAL (09:17)
[2025-05-12] MEDS: COZAAR 25 MG PO (09:17)
[2025-05-12] MEDS: PROTONIX 40 MG PO (09:17)
[2025-05-12] MEDS: ALDACTONE 50 MG PO (09:17)
[2025-05-12] MEDS: MYCOSTATIN ORAL SUSPENSION 5 ML PO ×3 (09:18→19:50)
[2025-05-12] MEDS: SOLU-MEDROL PF 40 MG IV (09:18)
[2025-05-12] MEDS: TEFLARO 270 MG IV ×3 (09:25→23:53)
--- NOTE | 2025-05-12 09:42 | W.PN.ID1 ---
Date of Service
Date of Service: May 12, 2025
Today's Communication
Continue antibiotics. See below�
Assessment / Plan
Sustained complicated MRSA bacteremia -persistent
Pulmonary septic emboli and/or cavitary MRSA PNA
Septic right knee
Right thigh and calf necrotizing soft tissue infection
Right second toe infection/gangrene/osteomyelitis
Fever -resolving
Leukocytosis -stable
s/p Hypoxemic respiratory failure, self extubated 05/05
SINDY resolved
Substance abuse (UDS with fentanyl, amphetamine, methamphetamine, benzodiazepine)
Hx CVA (thalamic bleed) with right hemiplegia
Chronic back pain
Recommendations:
TTE without noted valvular disease.
05/06/25 JEAN: NO VALVULAR VEGETATION
Blood cx's remain positive
Continue Serial blood cultures to assess ongoing bacteremia
Sputum cx MRSA
05/06 R knee fluid: 41,220 WBC, 54% polys, neg crystals.
Synovial cx MRSA
Appreciate Ortho: 05/07 s/p washout of R knee (+PUS). Cx MRSA
Appreciate general surgery 05/07 s/p I+D right thigh and calf. Cx MRSA
05/09 s/p R 2nd toe amputation
Continue Daptomycin IV (d#6). Monitor CK. Dose increased to 1.3 gm IV q.24 hours
Continue linezolid (d#6) for MRSA PNA, given that daptomycin does not penetrate lung tissue.
Added ceftaroline yesterday.
Monitor for bone marrow suppression while on linezolid.
Follow CBC
Overall outlook extremely guarded at this time given high-grade bacteremia.
����������������������������������������������������������
Chief Complaint
-: Clinical Sepsis, Pneumonia and Bacteremia
Subjective / Review of Systems
Patient seen and examined. Remains on high flow O2, although being weaned to degree; now down to 70%
Review of Systems: No Fever and No Chills
Vital Signs / Physical Exam
Vital Signs
Vital Signs
Temp Pulse Resp BP Pulse Ox
98.4 F 88 24 172/82 94
05/12/25 07:39 05/12/25 09:17 05/12/25 09:00 05/12/25 09:17 05/12/25 09:00
Physical Exam
Constitutional: Acutely Ill and Chronically Ill
Eyes: Sclera Anicteric
Cardiovascular: Regular Rate and S1/S2
Pulmonary: Coarse, Non Labored and Other (High flow O2 in place.)
Gastrointestinal: Soft, Non Tender and Normal Bowel Sounds
Extremities: Edema
Wound: Other (RLE dressing dry)
Neurological: Awake and Alert
Lines: Other (midline no erythema)
Objective Data
Lab Data
Lab Results
05/12/25 05:34
05/12/25 05:34
PT 20.0 Sec (11.4-14.6) H 04/30/25 19:46
INR 1.65 04/30/25 19:46
APTT Cancelled 05/04/25 14:45
Estimated Creat Clear > 125 ml/min 05/12/25 05:34
Lactic Acid 1.9 mmol/L (0.7-2.0) 05/01/25 12:18
Total Bilirubin 1.8 mg/dl (0.2-1.3) H 05/01/25 12:18
AST 38 U/L (17-59) 05/01/25 12:18
ALT 17 U/L (0-50) 05/01/25 12:18
Alkaline Phosphatase 71 U/L (38-126) 05/01/25 12:18
Most recent labs reviewed.
Micro Results:
05/09/25 04:01 Blood Culture - Preliminary
Blood/Venous Staph aureus MRSA
Gram Stain - Preliminary
05/12/25 05:34 Blood Culture - Pending
Blood/Venous
05/11/25 12:40 Blood Culture - Pending
Blood/Venous
05/07/25 18:35 Anaerobic Culture - Preliminary
Leg - Right Culture pending. Anaerobic cultures are examined after 3
days incubation. Additional information to follow.
05/07/25 18:35 Anaerobic Culture - Preliminary
Knee - Right NO ANAEROBES ISOLATED
05/08/25 04:21 Blood Culture - Preliminary
Blood/Venous Staph aureus MRSA
Gram Stain - Preliminary
05/07/25 18:35 Wound Culture - Preliminary
Knee - Right Staph aureus MRSA
Gram Stain - Preliminary
05/07/25 18:35 Wound Culture - Preliminary
Leg - Right Staph aureus MRSA
Gram Stain - Preliminary
05/05/25 03:34 Blood Culture - Final
Blood/Venous No Growth - Final Report
05/03/25 04:25 Blood Culture - Final
Blood/Venous Staph aureus MRSA
Gram Stain - Final
05/02/25 03:16 Blood Culture - Final
Blood/Venous Staph aureus MRSA
Gram Stain - Final
05/07/25 04:55 Blood Culture - Preliminary
Blood/Venous Staph aureus MRSA
Gram Stain - Preliminary
05/04/25 03:13 Blood Culture - Final
Blood/Venous No Growth - Final Report
05/06/25 08:16 Blood Culture - Preliminary
Blood/Venous Staph aureus MRSA
Gram Stain - Preliminary
05/06/25 13:19 Body Fluid Culture - Final
Synovial Fluid Staph aureus MRSA
Gram Stain - Final
04/30/25 19:46 Blood Culture - Final
Blood/Venous Staph aureus MRSA
Gram Stain - Final
05/04/25 09:25 Respiratory Culture - Final
Endotracheal Staph aureus MRSA
Gram Stain - Final
05/01/25 17:45 Blood Culture - Final
Blood/Venous Staph aureus MRSA
Gram Stain - Final
04/30/25 19:46 Blood Culture - Final
Blood/Venous Staph aureus MRSA
Gram Stain - Final
05/01/25 01:32 Urine Culture - Final
Urine Yeast
05/01/25 01:17 Blood Parasites Smear - Final
Blood/Venous
04/30/25 23:02 Influenza Types A & B (GIORGIO) - Final
Nasal Swab Negative for Influenza A & B, NAAT
Negative results must be combined with clinical observations
and patient history.
Nucleic Acid Amplification test (NAAT)performed on the
[employer] platform.
Imaging:
05/12/2025 CXR (portable): improved aeration of the right upper lung compared to prior days imaging. Otherwise, extensive diffuse bilateral patchy, nodular and confluent airspace opacities.
05/02/25 CT RLE: Subcutaneous stranding within the soft tissues of the anterior right thigh, and [id number] anterior soft tissues. No drainable abscess is appreciated. Moderate suprapatellar joint effusion, with areas of loculation.
05/01/2025 ECHO (TTE): EF 55%. Normal biventricular size and systolic function. No significant valvular disease. No obvious vegetations.
05/01/2025 CXR (portable): bilateral interstitial and airspace disease noted which may reflect pulmonary edema or pneumonia. Small bilateral pleural effusions noted. Please see full dictation for additional detail.
05/01/2025 Abdominal x-ray. Enteric tube noted in stomach.
05/01/2025 Renal ultrasound: unremarkable renal ultrasound without hydronephrosis, contour deforming solid renal mass or echogenic shadowing foci to suggest renal calculi. Bilateral pleural effusions noted.
05/01/2025 Duplex ultrasound lower extremity: no evidence of DVT in the bilateral lower extremities
04/30/2025 X-ray right foot: soft tissue injury versus ulceration involving the second digit with soft tissue swelling. The cortex of the distal phalanx is indistinct and the possibility of osteomyelitis cannot be excluded. There is soft tissue
swelling of the first digit. No radiographic evidence to suggest osteomyelitis. Please see full dictation for additional detail.
Care Review
Plan reviewed with: Physician (Critical Care) and Other (Clinical ID Pharmacist)
[2025-05-12] MEDS: ROXICODONE 20 MG PO ×4 (09:49→23:53)
--- NOTE | 2025-05-12 10:35 | W.PN.HOSP.TC ---
Today's Communication/Plan
-
Continue IV antibiotics
Wean oxygen as tolerated
Follow blood cultures
PT OT
Assessment / Plan
Assessment / Plan
Mr. Patrice Mera is a 50 yo man with hx polysubstance abuse, prior CVA (thalamic bleed; right hemiplegia), essential HTN, admitted 04/30 with septic shock 2/2 MRSA bacteremia, SINDY with anion gap metabolic acidosis and hypoxemic respiratory failure.
He is found to have septic joint right knee and development of necrotizing fasciitis.
Venous Dopplers lower extremity-no DVT noted
Echo 05/01/2025-normal biventricular size and systolic function. EF 55 to 60% no vegetation
CT right lower extremity with contrast-subcutaneous stranding within the soft tissues of the anterior thigh and below the knee. No abscess. Moderate suprapatellar joint effusion with areas of loculation. Moderate pelvic free fluid of unknown
etiology. Right inguinal and right iliac chain lymphadenopathy which may be reactive, neoplastic enlargement is not excluded.
Chest x-ray reviewed by me-bilateral infiltrates/edema
LENNY-right LENNY 0.75 and left LENNY 0.83 TBI were obtainable. Doppler waveforms at the ankle bilaterally shows artifacts but remain multiphasic
Renal ultrasound-unremarkable renal ultrasound. Bilateral pleural effusions
CT PE study-no evidence of central PE. Extensive bilateral cavitary nodular opacities compatible with bilateral cavitary pneumonia likely based on septic emboli. Small to moderate bilateral pleural effusions. Gynecomastia. Small amount of
ascites in the right upper quadrant adjacent to the liver.
JEAN 05/06/25
SUMMARY
1. Hyperdynamic left ventricular function.
2. Left ventricular systolic function is greater than 75% by visual assesment.
3. No evidence of any valvular vegetations.
4. Trace mitral valve regurgitation.
CT chest 05/11/2025-worsening severe bilateral cavitary nodules with confluent consolidation most in keeping with pneumonia likely related to septic emboli. Underlying neoplasm not excluded. Small to moderate bilateral pleural effusions progressed
on the left.
On examination patient is awake and alert oriented
Mildly short of breath
Cardiovascular system S1-S2 appreciated
Chest a few scattered short wheezes and rales
Right lower extremity-right second toe amputation site with sutures, right knee with desi, 2 deep ulcers 1 in the left medial thigh, one just below the knee on the left medial calf, no discharge or sloughing noted.
Left lower extremity-skin thickening, no
Right hemiparesis
#Acute respiratory failure, VDRF
-patient was intubated on admission for multiple reasons in setting of septic shock, pneumonia, septic emboli
-CTA without PE
-s/p self extubation on 05/05
-weaned to 8L oxygen pre-op 05/09, back on 15L post-op (05/10); and now increasing to high flow (05/11)- 55 L 75 % FIO2
-CT Chest -noted with bilateral cavitary nodules
-Methylprednisolone 40 mg IV daily started on 05/11/25 per pulmonary
- Encouraged to use Acapella or incentive spirometry
#MRSA Bacteremia
Septic Shock - patient was on Levo, Vaso, Epi, Giapreza; now off pressors
Septic Arthritis Right Knee
Necrotizing Fasciitis right medial thigh and calf
- JEAN 05/06 without e/o vegetation
- Right knee joint aspirate positive for MRSA 05/06
- Exam 05/07 with new concern for necrotizing fasciitis right medial thigh and calf Daily wound care and packing-of the 2 wounds
- Appreciate general surgery and ortho, patient is s/p I&D of necrotizing soft tissue infection and washout right knee on 05/07/25
- 05/07 antibiotics changed to IV Daptomycin, oral Linezolid
- Blood cultures remain positive from 05/09
- Daily blood cultures ordered
#Right second toe infection Gangrene
-Appreciate ID and Podiatry
-Antibiotics as above
-Arterial US with multiphasic waveforms
-Wound care Betadine soaked gauze to toe - change every day
-S/P Right 2nd toe amputation secondary to gangrenous changes with exposed bone 05/09/25
# Acute kidney injury - ATN in setting of septic shock
Metabolic Acidosis Resolved
-Patient briefly required CRRT but could not tolerate long
-Ultrasound of the kidneys without obstruction
-Appreciate Renal
-SINDY now resolved
-Cheng discontinued on 05/06
# Anemia secondary to acute illness
# Thrombocytosis secondary to infection
# Hypokalemia-resolved
# Anasarca
# Hypoalbuminemia
-Prn lasix
# Drug abuse urine drug screen positive for Fentanyl, Benzos, Amphetamines and Methamphetamines
Patient was discharged to a rehab last admission however he stayed there only for 2 days and signed himself out
# Multidrug resistant hypertension-currently blood pressure stable without medicines.
Patient was on Coreg, losartan, clonidine, Aldactone as outpatient.
-Resumed 1/2 dose Coreg (05/07)
-Resumed 1/4 dose Losartan (05/08)
-patient was started on standing Clonidine in the ICU post precedex - decreased to q12H (05/09/25)
-Resumed Spironolactone (05/11)
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 Transferred to [place] . Pt says he was there for 3 months and has weakness of right side and facial droop. Pt appropriately responding.
s/p [employer] shunt at [facility]
*confirmed cannot get MRI here given shunt
#Vitamin D deficiency-continue replacement
#Chronic back pain
#Morbid obesity with a BMI of 35- Weight loss recommended
#History of nephrolithiasis
#Possible sleep apnea-needs outpatient study as OP.
#ADHD
#Hepatic steatosis per prior imaging-outpatient follow-up
#Active smoker-cessation counseling when able
#DVT prophylaxis-Lovenox
#Full code
Overall prognosis guarded
D/W RN at bed side
Discussed with physical therapy
I asked the patient who he wants me to update in the family and he referred to Any who is his daughter. I spoke to Any and updated.
Time spent over 50 min
Anticipated Discharge: > 48 hours
Subjective/Interval History
-
Date of Service: May 12, 2025
Objective Data
-
Labs:
Laboratory Results
05/12/25 05/12/25 05/12/25
05:34 05:40 15:00
WBC 15.6 H
Hgb 9.1 L
Hct 29.3 L
Plt Count 651 H
HCO3 48.8 H* Pending
Sodium 137
Potassium 4.3
Chloride 91 L
Carbon Dioxide 44 H
BUN 15
Creatinine 0.6 L
Glucose 120 H
Calcium 8.2 L
Vital Signs:
Vital Signs
Temp Pulse Resp BP Pulse Ox
98.4 F 88 24 172/82 94
05/12/25 07:39 05/12/25 09:17 05/12/25 09:00 05/12/25 09:17 05/12/25 09:00
I&O
05/11/25 05/12/25 05/13/25
06:59 06:59 06:59
Intake Total 960 / 960 840 / 840
Output Total 1365 / 1365 4200 / 4200
Balance -405 / -405 -3360 / -3360
[2025-05-12] MEDS: DAKIN'S SOLUTION 0.125% 1/4 STRENGTH 473 ML TOPICAL (14:37)
[2025-05-12] MEDS: CUBICIN 26 MG IV (14:37)
[2025-05-12 15:01] LABS: B.E. 17.7 mmol/L; O2 Saturation % 99.3 % (94-98); PCO2 58 mmHg (35-48); PO2 109 mmHg (83-108)
[2025-05-12 15:04] LABS: HCO3 44.2 mmol/L (21-28)
--- NOTE | 2025-05-12 15:35 | PTOTSP ---
Speech Language Pathology
Pt seen for dysphagia tx. Minimal dentition noted. Pt reported he is able to chew all items at home, although he typically avoids crackers. Seen with P.O. trials of puree, regular solids, and thin liquids. Adequate mastication, bolus formation,
and A-P transit noted with no oral residue. No overt signs of aspiration.
Recommend:
(1) Upgrade to regular solids/thin liquids
(2) Aspiration precautions: take break if SOB (or if Sp02 <90%/RR >30), slow rate, chew thoroughly
(3) Meds as tolerated
(4) RECEIVER STOCKER to follow, likely briefly
--- NOTE | 2025-05-12 15:43 | WOUNDNOTE ---
WO RN Note: CHAYA Bauer changed R medial thigh and medial knee wound and reports wounds are clean. R lateral calf ulcer small, pink and healing. Adaptic and ABD pad applied to R lateral calf. Protective non woven gauze applied to R medial proximal foot
dry small scab. R thigh high Brody wrap applied with help from CHAYA Bauer. CHAYA Bauer applied L knee high Brody. Heels off bed with bariatric air chair cushion. Patient is on a Total care air bed. CHAYA Bauer documented sacral skin blanchable red. R 2nd toe amp
dressing D+I. [place] texted Dr. Burris inquiring if nursing to do any dressing changes for R 2nd toe amp. Await response. Will follow as needed.
--- NOTE | 2025-05-12 15:45 | CM ---
CM reviewed chart
In IMU with high flow O2 needs
Pt has been accepted by [facility]
Will need [facility] auth
Discharge Disposition- [facility] pending auth
[2025-05-12] MEDS: LOVENOX 40 MG SC (16:40)
[2025-05-12] MEDS: MYCOSTATIN ORAL SUSPENSION PO (19:14)
--- NOTE | 2025-05-12 22:37 | PTCARENOTE ---
Caring for pt overnight. aaox3. NSR 80-90bpm. Remains on HFNC 60L 70% 94%, RAMIREZ, orthopneic. CC in place, good UO. hx R sided weakness, no change. Acewraps off HS, applied in AM. All wound dressings CDI-- R knee, R medial thigh, R medial calf, R
toe, R foot. >2sec cap refill lower extremities. Great pulses in both feet. Low sensation in R foot, per pt this is not new. L midline. ivabx. BA on. Regular diet, good intake. Q2T. OXY prn for pain. Bp's running high, REINSURANCE ACCOUNTANT aware & discussed, will
monitor for now, received PM BP meds & pain meds, will reassess throughout the night. Will monitor.
[2025-05-13] VITALS (14 sets, daily range): BP systolic 151–185; BP diastolic 69–100; PULSE 80–84; O2SAT 95; BMI 36.0
[2025-05-13 05:11] LABS: Hematocrit 28.8 % (39.0-52.0); Hemoglobin 9.1 g/dL (13.0-18.0); Mean Corp Hgb Conc. 31.6 g/dL (33.0-37.0); Mean Corpuscular Volume 87.8 fL (80.0-94.0); Nucleated Red Blood Cells % 0 % (-); Platelet Count 656 10^3/uL (130-400); Red Cell Dist. Width 15.9 % (11.5-14.5)
[2025-05-13] MEDS: ROXICODONE 10 MG PO ×3 (05:21→22:54)
[2025-05-13 05:37] LABS: Blood Urea Nitrogen 19 mg/dl (9-20); Calcium 8.2 mg/dl (8.4-10.2); Chloride 95 mmol/L (98-107); Estimated Creatinine Clearance > 125 ml/min; Glucose 108 mg/dl (70-99); Magnesium 2.0 mg/dl (1.6-2.3); Potassium 4.5 mmol/L (3.5-5.1); Sodium 138 mmol/L (135-145); eGFR > 60.00
[2025-05-13 05:47] LABS: Carbon Dioxide 41 mmol/L (22-30)
--- NOTE | 2025-05-13 06:53 | W.PN.PUL3 ---
Today's Communication / Plan
-
- Continue to wean oxygen as tolerated
- Continue IV steroids for now
Assessment
-
Patient is a 50-year-old male with previous history of opiate use disorder, left thalamic intracranial hemorrhage, presenting to ER with complaints of chest pain, shortness of breath and right toe pain. He arrived in the ER in apparent
respiratory distress with increased work of breathing. He was tried on BiPAP but could not tolerate it. He was admitted here recently in January for opiate use disorder and withdrawal symptoms. UDS is positive for fentanyl, amphetamines,
benzodiazepines. Chest x-ray demonstrating mild left lower lobe pneumonia, he is on HFNC (PAO2 on ABG 73). Admitted to ICU for hypoxemia.
Profound septic shock on 4 pressors: levo, vaso, epi, giapreza--improved now off pressors
Bilateral septic emboli on CAT scan.
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
Acute hypoxic respiratory failure on high flow nasal cannula-->
-Now on daptomycin intubation 05/01
Extubated 05/05/2025.
Metabolic acidosis-resolved
Acute kidney injury, creatinine 6.9-resolved
MRSA endocarditis with pulmonary septic emboli.
Tick bite-negative serology
Possible skin infection/cellulitis
UDS +Fent, benzos, amphetamines
Conditions present INSURANCE SPECIALIST:
Cellulitis left lower extremity
Hypertensive urgency
Opiate abuse with withdrawal
Microscopic hematuria, Albuminuria noted in the urine
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
Leukocytosis- elevated since 2008 labs
Chronic back pain
Morbid obesity with a BMI of 39
History of nephrolithiasis
Possible sleep apnea-needs outpatient study asleep
ADHD
Hepatic steatosis per prior imaging
Active smoker
Assessment and plan:
#1. MRSA bacteremia with septic shock
- Shock has since resolved, patient off pressors, hemodynamically stable, MAP of 8 this AM
- Antimicrobial therapy per infectious disease service, had been on dual therapy with daptomycin and linezolid. Ceftaroline added on 05/11
- WBC count improving
#2. Acute hypoxic respiratory failure with bilateral cavitary pneumonia/septic emboli with bilateral pleural effusions
- Patient appears more comfortable. Currently on high flow nasal cannula, FiO2 down to 70%, on 55 L, saturating 93%, respiratory rate around 30. Continue to monitor in IMU. Advance diet as tolerated. CXR 05/13 continues to improve with increased
aeration of the right lung.
- 05/11/2025: Worsening hypoxia, switched to high flow nasal cannula. Chest x-ray showed worsening right-sided opacity. CT chest was pursued which showed significant worsening of underlying consolidation with essentially necrotizing pneumonia on
the right side. Pleural effusion still fairly small hold off on drainage for now. Added IV Solu-Medrol 40 daily in view of severity of underlying pneumonia. Poor prognosis considering patient is persistently bacteremic with worsening
consolidation, ongoing necrosis.
- MRSA noted on cultures, currently on IV antibiotics
- Intubated 05/01, extubated 05/05.
- Hold off BiPAP for now and continue with high flow nasal cannula
- Incentive spirometry, Acapella/flutter valve, activity as tolerated
- Small pleural effusion on the right and small to moderate on the left. Patient morbidly obese, tenuous respiratory status. Hold off pleural fluid drainage for now.
#3. Alkalosis
- Blood gas 05/12, reviewed 7.49/64/62. Alkalosis, suspect primarily underlying metabolic alkalosis with compensatory respiratory acidosis. Consistent with diuretic related contraction alkalosis with respiratory compensation. Patient is awake
alert, hold off any noninvasive ventilation for now.
- F/u ABG improving. Serum Bicarb level improving as well.
Cultures reviewed
Persistent staph
Infectious disease following-correspondence reviewed
Tick noted-serology negative
Continue antibiotics, vancomycin discontinued-now on daptomycin and linezolid
Pressors weaned-was on 4 pressors including giapreza-now off with normal function and
Echocardiogram with normal function and no evidence for endocarditis
JEAN 05/06/2025: Hyperdynamic left ventricle. Left ventricular systolic function greater than 75%. No evidence for any valvular vegetations. Trace mitral valve regurgitation.
Podiatry following-correspondence reviewed.
Right second toe amputation 05/09/25
Orthopedics following-correspondence reviewed
Irrigation admitted with arthrotomy right septic knee 05/06/2025
Monitor renal function
SINDY resolved
Nephrology following-correspondence reviewed prophylaxis
DVT-mechanical as well as Lovenox
GI prophylaxis-on pantoprazole
Nutrition
Physical therapy
Outpatient pulmonary [id number] PFTs and sleep study as well as radiographic follow-up
Total time spent on this consultation/encounter __38__ minutes which includes review of history, physical exam, medications, laboratory data, personal review of imaging, extensive review of outpatient records, discussion with care team and
respiratory therapy.
Discussed with interventional radiology and infectious disease service.
Diagnostic Data
Chest X-Ray: 04/30/25- Mild left lower lobe pneumonia. Trace bilateral pleural effusions.
CT Scan: CT head 01/2025: There is a ventricular shunt present which enters from the right superior frontal region, with tip of the shunt to the junction of the inferior frontal horn of the right lateral ventricle and the third ventricle. There is
decreased size of the right lateral ventricle when compared to the left, and slight shift of the septum pellucidum toward the left, and findings suggest peripheral arterial shunting of the right lateral ventricle when compared to the left. There is
no evidence of acute intracranial hemorrhage. In the inferior aspect of the left thalamus, there is a small focal area of decreased density measuring 1.5 cm transverse by 0.8 cm AP, compatible with encephalomalacia from previous region of
intracranial hemorrhage. No abnormal extra-axial collection is identified. There is 80% opacification of the sphenoid sinus, slightly improved from previous examination. The rest of the paranasal sinuses appear clear. The mastoid air cells appear
clear.
AP 02/23/25- 2 small nephroliths within the posterior upper pole the right kidney. As described, evidence for blood products/hematoma within the calyces of the upper pole of the right kidney. Wall of the urinary bladder appears mildly diffusely
thickened, which may be on the basis of incomplete distention, but correlate clinically to exclude cystitis. Mild hepatomegaly with no focal hepatic lesion. Thickening of the wall the duodenum extending from the duodenal bulb contiguously through
the distal third portion, with stranding of the adjacent fat. Main differential considerations of primary duodenitis, versus reactive duodenitis from pancreatitis. There is mild stranding of the fat adjacent to the pancreatic head with no focal
collection. Mild to moderate subcutaneous edema greatest in the lateral flanks.
Echo: 05/01/25- Normal biventricular size and systolic function without regional wall motion abnormality. LV ejection fraction is 55-60% by visual assessment. Normal diastolic function. No significant valvular disease. No obvious vegetation. No
prior study available for comparison.
Reports and relevant images were personally reviewed.
Subjective Data
-
Date of Service:
Date of Service: May 13, 2025
Chief Complaint: Pulmonary Follow Up and Dyspnea Follow Up
Subjective:
Patient comfortably lying in bed, cough and shortness of breath both improving
Review of Systems
Genitourinary: Other (All 14 systems reviewed and negative except as stated above in the history of present illness.)
Objective Data
Data Reviewed
Vital Signs / I&O / Oxygen:
Vital Signs
Temp Pulse Resp BP Pulse Ox
99.0 F 73 22 180/87 93
05/13/25 03:25 05/13/25 06:00 05/13/25 06:00 05/13/25 06:00 05/13/25 06:00
Intake and Output
05/11/25 05/12/25 05/13/25
06:59 06:59 06:59
Intake Total 960 / 960 840 / 840 1330 / 1330
Output Total 1365 / 1365 4200 / 4200 4400 / 4400
Balance -405 / -405 -3360 / -3360 -3070 / -3070
SaO2 [CPAP/PSV] 94
SaO2 [A/C] 94
SaO2 93
Nasal Cannula flow liters per 55
minute
Physical Exam
General: Respiratory Distress (n) and Comfortable
HEENT: Normocephalic, Anicteric, Moist Mucous Membranes and Other (Thick neck)
Cardiovascular: Regular Rhythm
Respiratory: Wheeze (n), Crackles (Few basilar), Rhonchi (Predominantly on right side, continues to improve) and Non-Labored Respirations
GI: Soft, Non Distended and Non Tender
Neurology: Awake and Alert
Skin: Warm, Good Color, Cyanosis (n), Jaundice and Rash
Labs/Micro/Reports
Lab Data
05/13/25 05:00
05/13/25 05:00
Laboratory Results
05/12/25
14:45
pH 7.49 H
pCO2 58 H
pO2 109 H
HCO3 44.2 H*
O2 Delivery Level
Microbiology
05/12/25 05:34 Blood/Venous Blood Culture - Preliminary
No Growth in 24 hours- Final report to follow
05/11/25 12:40 Blood/Venous Blood Culture - Preliminary
No Growth in 24 hours- Final report to follow
05/07/25 18:35 Leg - Right Anaerobic Culture - Preliminary
Culture pending. Anaerobic cultures are examined after 3
days incubation. Additional information to follow.
05/09/25 04:01 Blood/Venous Blood Culture - Preliminary
Staph aureus MRSA
05/09/25 04:01 Blood/Venous Gram Stain - Preliminary
05/07/25 18:35 Knee - Right Anaerobic Culture - Preliminary
NO ANAEROBES ISOLATED
05/08/25 04:21 Blood/Venous Blood Culture - Preliminary
Staph aureus MRSA
05/08/25 04:21 Blood/Venous Gram Stain - Preliminary
05/07/25 18:35 Knee - Right Wound Culture - Preliminary
Staph aureus MRSA
05/07/25 18:35 Knee - Right Gram Stain - Preliminary
05/07/25 18:35 Leg - Right Wound Culture - Preliminary
Staph aureus MRSA
05/07/25 18:35 Leg - Right Gram Stain - Preliminary
05/05/25 03:34 Blood/Venous Blood Culture - Final
No Growth - Final Report
--- NOTE | 2025-05-13 07:32 | W.PN.ID1 ---
Date of Service
Date of Service: May 13, 2025
Today's Communication
Continue antibiotics.
Assessment / Plan
Sustained complicated MRSA bacteremia
Pulmonary septic emboli and cavitary MRSA PNA
Septic right knee; s/p washout
Right thigh and calf necrotizing soft tissue infection
Right second toe infection/gangrene/osteomyelitis
Fever -resolving
Leukocytosis -stable
s/p Hypoxemic respiratory failure, self extubated 05/05
SINDY; resolved
Substance abuse (UDS with fentanyl, amphetamine, methamphetamine, benzodiazepine)
Hx CVA (thalamic bleed) with right hemiplegia
Chronic back pain
Recommendations:
TTE without noted valvular disease.
05/06/25 JEAN: NO VALVULAR VEGETATION
Blood cx's remain positive
Continue Serial blood cultures to assess ongoing bacteremia
Sputum cx MRSA
05/06 R knee fluid: 41,220 WBC, 54% polys, neg crystals.
Synovial cx : MRSA
Appreciate Ortho: 05/07/25 s/p washout of R knee (+PUS). Cx MRSA
Appreciate general surgery 05/07 s/p I+D right thigh and calf. Cx MRSA
05/09 s/p R 2nd toe amputation
Continue Daptomycin IV (d#7). Monitor CK.
Continue linezolid (d#7) for MRSA PNA (daptomycin does not penetrate lung tissue)
Continue ceftaroline (d#3)
Monitor for bone marrow suppression while on linezolid.
Follow CBC
Overall outlook extremely guarded at this time given sustained, high-grade bacteremia, cavitary pneumonia and other comorbidities.
����������������������������������������������������������
Chief Complaint
-: Clinical Sepsis, Pneumonia and Bacteremia
Subjective / Review of Systems
Patient seen and examined. Remains on high flow O2. Overall feels about the same as yesterday; breathing no worse.
Review of Systems: No Fever and No Chills
Vital Signs / Physical Exam
Vital Signs
Vital Signs
Temp Pulse Resp BP Pulse Ox
97.7 F 73 22 180/87 93
05/13/25 07:27 05/13/25 06:00 05/13/25 06:00 05/13/25 06:00 05/13/25 06:00
Physical Exam
Constitutional: Acutely Ill and Chronically Ill
Eyes: Sclera Anicteric
Cardiovascular: Regular Rate and S1/S2
Pulmonary: Coarse, Non Labored and Other (High flow O2 in place.)
Gastrointestinal: Soft, Non Tender and Normal Bowel Sounds
Extremities: Edema
Wound: Other (RLE dressing dry)
Neurological: Awake and Alert
Lines: Other (midline no erythema)
Objective Data
Lab Data
Lab Results
05/13/25 05:00
05/13/25 05:00
PT 20.0 Sec (11.4-14.6) H 04/30/25 19:46
INR 1.65 04/30/25 19:46
APTT Cancelled 05/04/25 14:45
Estimated Creat Clear > 125 ml/min 05/13/25 05:00
Lactic Acid 1.9 mmol/L (0.7-2.0) 05/01/25 12:18
Total Bilirubin 1.8 mg/dl (0.2-1.3) H 05/01/25 12:18
AST 38 U/L (17-59) 05/01/25 12:18
ALT 17 U/L (0-50) 05/01/25 12:18
Alkaline Phosphatase 71 U/L (38-126) 05/01/25 12:18
Most recent labs reviewed.
Micro Results:
05/12/25 05:34 Blood Culture - Preliminary
Blood/Venous No Growth in 24 hours- Final report to follow
05/11/25 12:40 Blood Culture - Preliminary
Blood/Venous No Growth in 24 hours- Final report to follow
05/07/25 18:35 Anaerobic Culture - Preliminary
Leg - Right Culture pending. Anaerobic cultures are examined after 3
days incubation. Additional information to follow.
05/09/25 04:01 Blood Culture - Preliminary
Blood/Venous Staph aureus MRSA
Gram Stain - Preliminary
05/07/25 18:35 Anaerobic Culture - Preliminary
Knee - Right NO ANAEROBES ISOLATED
05/08/25 04:21 Blood Culture - Preliminary
Blood/Venous Staph aureus MRSA
Gram Stain - Preliminary
05/07/25 18:35 Wound Culture - Preliminary
Knee - Right Staph aureus MRSA
Gram Stain - Preliminary
05/07/25 18:35 Wound Culture - Preliminary
Leg - Right Staph aureus MRSA
Gram Stain - Preliminary
05/05/25 03:34 Blood Culture - Final
Blood/Venous No Growth - Final Report
05/03/25 04:25 Blood Culture - Final
Blood/Venous Staph aureus MRSA
Gram Stain - Final
05/02/25 03:16 Blood Culture - Final
Blood/Venous Staph aureus MRSA
Gram Stain - Final
05/07/25 04:55 Blood Culture - Preliminary
Blood/Venous Staph aureus MRSA
Gram Stain - Preliminary
05/04/25 03:13 Blood Culture - Final
Blood/Venous No Growth - Final Report
05/06/25 08:16 Blood Culture - Preliminary
Blood/Venous Staph aureus MRSA
Gram Stain - Preliminary
05/06/25 13:19 Body Fluid Culture - Final
Synovial Fluid Staph aureus MRSA
Gram Stain - Final
04/30/25 19:46 Blood Culture - Final
Blood/Venous Staph aureus MRSA
Gram Stain - Final
05/04/25 09:25 Respiratory Culture - Final
Endotracheal Staph aureus MRSA
Gram Stain - Final
05/01/25 17:45 Blood Culture - Final
Blood/Venous Staph aureus MRSA
Gram Stain - Final
04/30/25 19:46 Blood Culture - Final
Blood/Venous Staph aureus MRSA
Gram Stain - Final
05/01/25 01:32 Urine Culture - Final
Urine Yeast
05/01/25 01:17 Blood Parasites Smear - Final
Blood/Venous
04/30/25 23:02 Influenza Types A & B (GIORGIO) - Final
Nasal Swab Negative for Influenza A & B, NAAT
Negative results must be combined with clinical observations
and patient history.
Nucleic Acid Amplification test (NAAT)performed on the
[employer] platform.
Imaging:
05/12/2025 CXR (portable): improved aeration of the right upper lung compared to prior days imaging. Otherwise, extensive diffuse bilateral patchy, nodular and confluent airspace opacities.
05/02/25 CT RLE: Subcutaneous stranding within the soft tissues of the anterior right thigh, and [id number] anterior soft tissues. No drainable abscess is appreciated. Moderate suprapatellar joint effusion, with areas of loculation.
05/01/2025 ECHO (TTE): EF 55%. Normal biventricular size and systolic function. No significant valvular disease. No obvious vegetations.
05/01/2025 CXR (portable): bilateral interstitial and airspace disease noted which may reflect pulmonary edema or pneumonia. Small bilateral pleural effusions noted. Please see full dictation for additional detail.
05/01/2025 Abdominal x-ray. Enteric tube noted in stomach.
05/01/2025 Renal ultrasound: unremarkable renal ultrasound without hydronephrosis, contour deforming solid renal mass or echogenic shadowing foci to suggest renal calculi. Bilateral pleural effusions noted.
05/01/2025 Duplex ultrasound lower extremity: no evidence of DVT in the bilateral lower extremities
04/30/2025 X-ray right foot: soft tissue injury versus ulceration involving the second digit with soft tissue swelling. The cortex of the distal phalanx is indistinct and the possibility of osteomyelitis cannot be excluded. There is soft tissue
swelling of the first digit. No radiographic evidence to suggest osteomyelitis. Please see full dictation for additional detail.
Care Review
Plan reviewed with: Physician (Pulmonary)
--- NOTE | 2025-05-13 08:33 | PTCARENOTE ---
Patient received from commercial baker helper. Patient resting comfortably in room. AAO, VSS. Remains on HighFlow N/C 60L @ 70%, will work with respiratory to try and wean. Patient remains with pain in his feet and legs, see NOV. Wound dressings with
drainage, will be changed later today. Continuing ABX. No further testing at this time. Call finley in reach.
[2025-05-13] MEDS: COZAAR 100 MG PO (08:37)
[2025-05-13] MEDS: CATAPRES 0.2 MG PO ×2 (08:37→20:22)
[2025-05-13] MEDS: COREG 25 MG PO ×2 (08:37→20:23)
[2025-05-13] MEDS: TEFLARO 270 MG IV ×3 (08:37→23:32)
[2025-05-13] MEDS: ZYVOX 600 MG PO ×2 (08:37→20:23)
[2025-05-13] MEDS: PROTONIX 40 MG PO (08:37)
[2025-05-13] MEDS: MIRALAX 17 GRAMS PO (08:37)
[2025-05-13] MEDS: MYCOSTATIN ORAL SUSPENSION 5 ML PO ×3 (08:37→22:53)
[2025-05-13] MEDS: SOLU-MEDROL PF 40 MG IV (08:37)
[2025-05-13] MEDS: COLACE 100 MG PO ×2 (08:37→20:23)
[2025-05-13] MEDS: ALDACTONE 50 MG PO (08:37)
[2025-05-13] MEDS: HYDROPHOR 1 APPLIC TOPICAL (08:38)
[2025-05-13] MEDS: DESENEX/MITRAZOL/ZEASORB 1 APPLIC TOPICAL ×2 (08:38→20:23)
[2025-05-13] MEDS: DAKIN'S SOLUTION 0.125% 1/4 STRENGTH 473 ML TOPICAL (08:38)
--- NOTE | 2025-05-13 09:43 | W.PN.HOSP.TC ---
Today's Communication/Plan
-
IV AB
Wean O2 as tolerated.
Antihypertensives increased
Encourage seated position more than lying down
IS and acapella
Assessment / Plan
Assessment / Plan
Mr. Patrice Mera is a 50 yo man with hx polysubstance abuse, prior CVA (thalamic bleed; right hemiplegia), essential HTN, admitted 04/30 with septic shock 2/2 MRSA bacteremia, SINDY with anion gap metabolic acidosis and hypoxemic respiratory failure.
He is found to have septic joint right knee and development of necrotizing fasciitis.
Venous Dopplers lower extremity-no DVT noted
Echo 05/01/2025-normal biventricular size and systolic function. EF 55 to 60% no vegetation
CT right lower extremity with contrast-subcutaneous stranding within the soft tissues of the anterior thigh and below the knee. No abscess. Moderate suprapatellar joint effusion with areas of loculation. Moderate pelvic free fluid of unknown
etiology. Right inguinal and right iliac chain lymphadenopathy which may be reactive, neoplastic enlargement is not excluded.
Chest x-ray reviewed by me-bilateral infiltrates/edema
LENNY-right LENNY 0.75 and left LENNY 0.83 TBI were obtainable. Doppler waveforms at the ankle bilaterally shows artifacts but remain multiphasic
Renal ultrasound-unremarkable renal ultrasound. Bilateral pleural effusions
CT PE study-no evidence of central PE. Extensive bilateral cavitary nodular opacities compatible with bilateral cavitary pneumonia likely based on septic emboli. Small to moderate bilateral pleural effusions. Gynecomastia. Small amount of
ascites in the right upper quadrant adjacent to the liver.
JEAN 05/06/25
SUMMARY
1. Hyperdynamic left ventricular function.
2. Left ventricular systolic function is greater than 75% by visual assesment.
3. No evidence of any valvular vegetations.
4. Trace mitral valve regurgitation.
CT chest 05/11/2025-worsening severe bilateral cavitary nodules with confluent consolidation most in keeping with pneumonia likely related to septic emboli. Underlying neoplasm not excluded. Small to moderate bilateral pleural effusions progressed
on the left.
On examination patient is awake and alert oriented
Mildly short of breath
Cardiovascular system S1-S2 appreciated
Chest a few scattered short wheezes and rales
Right lower extremity-wounds with packing.
Left lower extremity-skin thickening, no edema
Right hemiparesis
#Acute respiratory failure, VDRF
-patient was intubated on admission for multiple reasons in setting of septic shock, pneumonia, septic emboli
-CTA without PE
-s/p self extubation on 05/05
-weaned to 8L oxygen pre-op 05/09, back on 15L post-op (05/10); and now increasing to high flow (05/11)- 55 L 70 % FIO2
-CT Chest -noted with bilateral cavitary nodules
-Methylprednisolone 40 mg IV daily started on 05/11/25 per pulmonary
- Encouraged to use Acapella or incentive spirometry
#MRSA Bacteremia
Septic Shock - patient was on Levo, Vaso, Epi, Giapreza; now off pressors
Septic Arthritis Right Knee
Necrotizing Fasciitis right medial thigh and calf
- JEAN 05/06 without e/o vegetation
- Right knee joint aspirate positive for MRSA 05/06
- Exam 05/07 with new concern for necrotizing fasciitis right medial thigh and calf Daily wound care and packing-of the 2 wounds
- Appreciate general surgery and ortho, patient is s/p I&D of necrotizing soft tissue infection and washout right knee on 05/07/25
- 05/07 antibiotics changed to IV Daptomycin, oral Linezolid, Teflaro started on 05/11/2025
- Blood cultures remain positive from 05/09
- Daily blood cultures ordered
#Right second toe infection Gangrene
-Appreciate ID and Podiatry
-Antibiotics as above
-Arterial US with multiphasic waveforms
-Wound care Betadine soaked gauze to toe - change every day
-S/P Right 2nd toe amputation secondary to gangrenous changes with exposed bone 05/09/25
# Acute kidney injury - ATN in setting of septic shock
Metabolic Acidosis Resolved
-Patient briefly required CRRT but could not tolerate long
-Ultrasound of the kidneys without obstruction
-Appreciate Renal
-SINDY now resolved
-Cheng discontinued on 05/06
# Anemia secondary to acute illness
# Thrombocytosis secondary to infection
# Hypokalemia-resolved
# Anasarca
# Hypoalbuminemia
-Prn lasix
# Drug abuse urine drug screen positive for Fentanyl, Benzos, Amphetamines and Methamphetamines
Patient was discharged to a rehab last admission however he stayed there only for 2 days and signed himself out
# Multidrug resistant hypertension-currently blood pressure stable without medicines.
Patient was on Coreg, losartan, clonidine, Aldactone as outpatient.
-Resumed 25 mg twice daily Coreg on 05/13/2025
-Resumed and milligrams daily losartan on 05/13/2025
-patient was started on standing Clonidine in the ICU post precedex - decreased to q12H (05/09/25)
-Resumed Spironolactone (05/11)
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 Transferred to [place] . Pt says he was there for 3 months and has weakness of right side and facial droop. Pt appropriately responding.
s/p [employer]GE [employer] [facility] shunt at [facility]
*confirmed cannot get MRI here given shunt
#Vitamin D deficiency-continue replacement
#Chronic back pain
#Morbid obesity with a BMI of 35- Weight loss recommended
#History of nephrolithiasis
#Possible sleep apnea-needs outpatient study as OP.
#ADHD
#Hepatic steatosis per prior imaging-outpatient follow-up
#Active smoker-cessation counseling when able
#DVT prophylaxis-Lovenox
#Full code
Overall prognosis guarded
D/W RN at bed side
Spoke to daughter Any and updated again today
Time spent over 50 min
Anticipated Discharge: > 48 hours
Subjective/Interval History
-
Date of Service: May 13, 2025
Objective Data
-
Labs:
Laboratory Results
05/13/25
05:00
WBC 14.5 H
Hgb 9.1 L
Hct 28.8 L
Plt Count 656 H
Sodium 138
Potassium 4.5
Chloride 95 L
Carbon Dioxide 41 H
BUN 19
Creatinine 0.6 L
Glucose 108 H
Calcium 8.2 L
Vital Signs:
Vital Signs
Temp Pulse Resp BP Pulse Ox
97.7 F 88 22 182/91 92
05/13/25 07:27 05/13/25 08:37 05/13/25 06:00 05/13/25 08:37 05/13/25 07:33
I&O
05/12/25 05/13/25 05/14/25
06:59 06:59 06:59
Intake Total 840 / 840 1330 / 1330
Output Total 4200 / 4200 4400 / 4400
Balance -3360 / -3360 -3070 / -3070
--- NOTE | 2025-05-13 11:26 | CM ---
CM reviewed chart
Remains in IMU with continued high flow O2 needs
Pt has been accepted by [facility]
Will need [facility] auth
Discharge Disposition- [facility] pending auth
[2025-05-13] MEDS: ROXICODONE 20 MG PO ×2 (11:43→20:24)
[2025-05-13] MEDS: MYCOSTATIN ORAL SUSPENSION PO (14:28)
[2025-05-13] MEDS: CUBICIN 26 MG IV (15:57)
[2025-05-13] MEDS: LOVENOX 40 MG SC (17:48)
[2025-05-13] MEDS: SENOKOT 8.6 MG PO (20:23)
[2025-05-14] VITALS (12 sets, daily range): BP systolic 139–190; BP diastolic 65–88
--- NOTE | 2025-05-14 00:48 | PTCARENOTE ---
Pt AAOx3 easily arousable. Pt appearing to tolerate high flow 55%/70 spo2 94% respiration even unlabored at this time. Pt having complaints of pain, see mar for emergency medicine specialist. bed alarm police commissioner finley within reach. Assessment care and vitals as charted.
[2025-05-14] MEDS: ROXICODONE 20 MG PO ×5 (02:43→22:35)
[2025-05-14 03:35] LABS: Hematocrit 27.8 % (39.0-52.0); Hemoglobin 8.8 g/dL (13.0-18.0); Mean Corp Hgb Conc. 31.7 g/dL (33.0-37.0); Mean Corpuscular Volume 85.8 fL (80.0-94.0); Nucleated Red Blood Cells % 0 % (-); Platelet Count 653 10^3/uL (130-400); Red Cell Dist. Width 16.0 % (11.5-14.5)
[2025-05-14 03:57] LABS: Blood Urea Nitrogen 21 mg/dl (9-20); Calcium 8.2 mg/dl (8.4-10.2); Carbon Dioxide 37 mmol/L (22-30); Chloride 98 mmol/L (98-107); Estimated Creatinine Clearance > 125 ml/min; Glucose 112 mg/dl (70-99); Potassium 4.4 mmol/L (3.5-5.1); Sodium 137 mmol/L (135-145); eGFR > 60.00
--- NOTE | 2025-05-14 07:00 | W.PN.PUL3 ---
Today's Communication / Plan
-
- Continue to wean FiO2 as tolerated
- Continue supplemental steroids for now
- Recommend sitting in chair, increase activity as tolerated
- Continue flutter valve and incentive spirometry
- Pulmonary team will see the patient again on 05/16, please call as needed.
Assessment
-
Patient is a 50-year-old male with previous history of opiate use disorder, left thalamic intracranial hemorrhage, presenting to ER with complaints of chest pain, shortness of breath and right toe pain. He arrived in the ER in apparent
respiratory distress with increased work of breathing. He was tried on BiPAP but could not tolerate it. He was admitted here recently in January for opiate use disorder and withdrawal symptoms. UDS is positive for fentanyl, amphetamines,
benzodiazepines. Chest x-ray demonstrating mild left lower lobe pneumonia, he is on HFNC (PAO2 on ABG 73). Admitted to ICU for hypoxemia.
Profound septic shock on 4 pressors: levo, vaso, epi, giapreza--improved now off pressors
Bilateral septic emboli on CAT scan.
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
Acute hypoxic respiratory failure on high flow nasal cannula-->
-Now on daptomycin intubation 05/01
Extubated 05/05/2025.
Metabolic acidosis-resolved
Acute kidney injury, creatinine 6.9-resolved
MRSA endocarditis with pulmonary septic emboli.
Tick bite-negative serology
Possible skin infection/cellulitis
UDS +Fent, benzos, amphetamines
Conditions present [employer]:
Cellulitis left lower extremity
Hypertensive urgency
Opiate abuse with withdrawal
Microscopic hematuria, Albuminuria noted in the urine
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
Leukocytosis- elevated since 2008 labs
Chronic back pain
Morbid obesity with a BMI of 39
History of nephrolithiasis
Possible sleep apnea-needs outpatient study asleep
ADHD
Hepatic steatosis per prior imaging
Active smoker
Assessment and plan:
#1. MRSA bacteremia with septic shock
- Shock has since resolved, patient off pressors, hemodynamically stable
- Antimicrobial therapy per infectious disease service, had been on dual therapy with daptomycin and linezolid. Ceftaroline added on 05/11
- WBC count improving, blood cultures finally clearing
#2. Acute hypoxic respiratory failure with bilateral cavitary pneumonia/septic emboli with bilateral pleural effusions
- Patient appears more comfortable. Currently on high flow nasal cannula, FiO2 down to 60%, on 50 L, saturating 92%, respiratory rate mid 20's. Continue to monitor in IMU. Advance diet as tolerated. CXR 05/13 continues to improve with increased
aeration of the right lung. Decreasing cough, minimal expectoration, overall work of breathing normal.
- 05/11/2025: had worsening hypoxia, switched to high flow nasal cannula. Chest x-ray showed worsening right-sided opacity. CT chest was pursued which showed significant worsening of underlying consolidation with essentially necrotizing pneumonia
on the right side. Pleural effusion still fairly small hold off on drainage for now. Added IV Solu-Medrol 40 daily in view of severity of underlying pneumonia. Poor prognosis considering patient is persistently bacteremic with worsening
consolidation, ongoing necrosis.
- MRSA noted on cultures, currently on IV antibiotics
- Intubated 05/01, extubated 05/05.
- Hold off BiPAP for now and continue with high flow nasal cannula
- Incentive spirometry, Acapella/flutter valve, activity as tolerated
- Small pleural effusion on the right and small to moderate on the left. Patient morbidly obese, tenuous respiratory status. Hold off pleural fluid drainage for now.
#3. Alkalosis
- Blood gas 05/12, reviewed 7.49/64/62. Alkalosis, suspect primarily underlying metabolic alkalosis with compensatory respiratory acidosis. Consistent with diuretic related contraction alkalosis with respiratory compensation. Patient is awake
alert, hold off any noninvasive ventilation for now.
- F/u ABG improving. Serum Bicarb level improving as well.
Cultures reviewed
Persistent staph
Infectious disease following-correspondence reviewed
Tick noted-serology negative
Continue antibiotics, vancomycin discontinued-now on daptomycin and linezolid
Pressors weaned-was on 4 pressors including giapreza-now off with normal function and
Echocardiogram with normal function and no evidence for endocarditis
JEAN 05/06/2025: Hyperdynamic left ventricle. Left ventricular systolic function greater than 75%. No evidence for any valvular vegetations. Trace mitral valve regurgitation.
Podiatry following-correspondence reviewed.
Right second toe amputation 05/09/25
Orthopedics following-correspondence reviewed
Irrigation admitted with arthrotomy right septic knee 05/06/2025
Monitor renal function
SINDY resolved
Nephrology following-correspondence reviewed prophylaxis
DVT-mechanical as well as Lovenox
GI prophylaxis-on pantoprazole
Nutrition
Physical therapy
Outpatient pulmonary [id number] PFTs and sleep study as well as radiographic follow-up
Total time spent on this consultation/encounter __38__ minutes which includes review of history, physical exam, medications, laboratory data, personal review of imaging, extensive review of outpatient records, discussion with care team and
respiratory therapy.
Discussed with interventional radiology and infectious disease service.
Diagnostic Data
Chest X-Ray: 04/30/25- Mild left lower lobe pneumonia. Trace bilateral pleural effusions.
CT Scan: CT head 01/2025: There is a ventricular shunt present which enters from the right superior frontal region, with tip of the shunt to the junction of the inferior frontal horn of the right lateral ventricle and the third ventricle. There is
decreased size of the right lateral ventricle when compared to the left, and slight shift of the septum pellucidum toward the left, and findings suggest peripheral arterial shunting of the right lateral ventricle when compared to the left. There is
no evidence of acute intracranial hemorrhage. In the inferior aspect of the left thalamus, there is a small focal area of decreased density measuring 1.5 cm transverse by 0.8 cm AP, compatible with encephalomalacia from previous region of
intracranial hemorrhage. No abnormal extra-axial collection is identified. There is 80% opacification of the sphenoid sinus, slightly improved from previous examination. The rest of the paranasal sinuses appear clear. The mastoid air cells appear
clear.
AP 02/23/25- 2 small nephroliths within the posterior upper pole the right kidney. As described, evidence for blood products/hematoma within the calyces of the upper pole of the right kidney. Wall of the urinary bladder appears mildly diffusely
thickened, which may be on the basis of incomplete distention, but correlate clinically to exclude cystitis. Mild hepatomegaly with no focal hepatic lesion. Thickening of the wall the duodenum extending from the duodenal bulb contiguously through
the distal third portion, with stranding of the adjacent fat. Main differential considerations of primary duodenitis, versus reactive duodenitis from pancreatitis. There is mild stranding of the fat adjacent to the pancreatic head with no focal
collection. Mild to moderate subcutaneous edema greatest in the lateral flanks.
Echo: 05/01/25- Normal biventricular size and systolic function without regional wall motion abnormality. LV ejection fraction is 55-60% by visual assessment. Normal diastolic function. No significant valvular disease. No obvious vegetation. No
prior study available for comparison.
Reports and relevant images were personally reviewed.
Subjective Data
-
Date of Service:
Date of Service: May 14, 2025
Chief Complaint: Pulmonary Follow Up and Dyspnea Follow Up
Subjective:
Patient comfortably lying in bed, no acute distress
Review of Systems
Genitourinary: Other (No new symptoms reported)
Objective Data
Data Reviewed
Vital Signs / I&O / Oxygen:
Vital Signs
Temp Pulse Resp BP Pulse Ox
99.0 F 78 22 162/80 93
05/14/25 06:08 05/14/25 06:00 05/14/25 06:00 05/14/25 06:00 05/14/25 06:00
Intake and Output
05/13/25 05/14/25 05/15/25
06:59 06:59 06:59
Intake Total 1330 / 1330 1110 / 1110
Output Total 4400 / 4400 2200 / 2200
Balance -3070 / -3070 -1090 / -1090
SaO2 [CPAP/PSV] 94
SaO2 [A/C] 94
SaO2 93
Nasal Cannula flow liters per 50
minute
Physical Exam
General: Respiratory Distress (n) and Comfortable
HEENT: Normocephalic, Anicteric, Moist Mucous Membranes and Other (Thick neck)
Cardiovascular: Regular Rhythm
Respiratory: Wheeze (n), Crackles (Few basilar), Rhonchi (Predominantly on right side, continues to improve) and Non-Labored Respirations
GI: Soft, Non Distended and Non Tender
Neurology: Awake and Alert
Skin: Warm, Good Color, Cyanosis (n), Jaundice and Rash
Labs/Micro/Reports
Lab Data
05/14/25 03:20
05/14/25 03:20
Microbiology
05/12/25 05:34 Blood/Venous Blood Culture - Preliminary
No Growth in 48 hours- Final report to follow
05/11/25 12:40 Blood/Venous Blood Culture - Preliminary
No Growth in 48 hours- Final report to follow
05/07/25 18:35 Knee - Right Wound Culture - Final
Staph aureus MRSA
05/07/25 18:35 Knee - Right Gram Stain - Final
05/07/25 18:35 Knee - Right Anaerobic Culture - Final
NO ANAEROBES ISOLATED
05/07/25 18:35 Leg - Right Wound Culture - Final
Staph aureus MRSA
05/07/25 18:35 Leg - Right Gram Stain - Final
05/07/25 18:35 Leg - Right Anaerobic Culture - Final
NO ANAEROBES ISOLATED
05/09/25 04:01 Blood/Venous Blood Culture - Preliminary
Staph aureus MRSA
05/09/25 04:01 Blood/Venous Gram Stain - Preliminary
05/08/25 04:21 Blood/Venous Blood Culture - Preliminary
Staph aureus MRSA
05/08/25 04:21 Blood/Venous Gram Stain - Preliminary
--- NOTE | 2025-05-14 08:19 | W.PN.HOSP.TC ---
Today's Communication/Plan
-
Continue IV antibiotics
Encourage mobility , seated position, encourage incentive spirometry and Acapella
Wean oxygen as tolerated
Assessment / Plan
Assessment / Plan
Mr. Patrice Mera is a 50 yo man with hx polysubstance abuse, prior CVA (thalamic bleed; right hemiplegia), essential HTN, admitted 04/30 with septic shock 2/2 MRSA bacteremia, SINDY with anion gap metabolic acidosis and hypoxemic respiratory failure.
He is found to have septic joint right knee and development of necrotizing fasciitis.
Venous Dopplers lower extremity-no DVT noted
Echo 05/01/2025-normal biventricular size and systolic function. EF 55 to 60% no vegetation
CT right lower extremity with contrast-subcutaneous stranding within the soft tissues of the anterior thigh and below the knee. No abscess. Moderate suprapatellar joint effusion with areas of loculation. Moderate pelvic free fluid of unknown
etiology. Right inguinal and right iliac chain lymphadenopathy which may be reactive, neoplastic enlargement is not excluded.
Chest x-ray reviewed by me-bilateral infiltrates/edema
LENNY-right LENNY 0.75 and left LENNY 0.83 TBI were obtainable. Doppler waveforms at the ankle bilaterally shows artifacts but remain multiphasic
Renal ultrasound-unremarkable renal ultrasound. Bilateral pleural effusions
CT PE study-no evidence of central PE. Extensive bilateral cavitary nodular opacities compatible with bilateral cavitary pneumonia likely based on septic emboli. Small to moderate bilateral pleural effusions. Gynecomastia. Small amount of
ascites in the right upper quadrant adjacent to the liver.
JEAN 05/06/25
SUMMARY
1. Hyperdynamic left ventricular function.
2. Left ventricular systolic function is greater than 75% by visual assesment.
3. No evidence of any valvular vegetations.
4. Trace mitral valve regurgitation.
CT chest 05/11/2025-worsening severe bilateral cavitary nodules with confluent consolidation most in keeping with pneumonia likely related to septic emboli. Underlying neoplasm not excluded. Small to moderate bilateral pleural effusions progressed
on the left.
On examination patient is awake and alert oriented
Mildly short of breath
Cardiovascular system S1-S2 appreciated
Chest a few scattered rales
Right lower extremity-wounds with packing.
Left lower extremity-skin thickening, no edema
Right hemiparesis
#Acute respiratory failure, VDRF
-patient was intubated on admission for multiple reasons in setting of septic shock, pneumonia, septic emboli
-CTA without PE
-s/p self extubation on 05/05,weaned to 8L oxygen pre-op 05/09, back on 15L post-op (05/10); and increasing to high flow (05/11)60 L (100 %FIO2) - Weaning now -50 L 70 % FIO2 today
-CT Chest -noted with bilateral cavitary nodules
-Methylprednisolone 40 mg IV daily started on 05/11/25 per pulmonary
-Encouraged to use Acapella or incentive spirometry
#MRSA Bacteremia
Septic Shock - patient was on Levo, Vaso, Epi, Giapreza; now off pressors
Septic Arthritis Right Knee
Necrotizing Fasciitis right medial thigh and calf
- JEAN 05/06 without e/o vegetation
- Right knee joint aspirate positive for MRSA 05/06
- Exam 05/07 with new concern for necrotizing fasciitis right medial thigh and calf Daily wound care and packing-of the 2 wounds
- Appreciate general surgery and ortho, patient is s/p I&D of necrotizing soft tissue infection and washout right knee on 05/07/25
- 05/07 antibiotics changed to IV Daptomycin, oral Linezolid, Teflaro started on 05/11/2025
- Last positive Blood cultures from 05/09, negative since 05/11/25.
- Daily blood cultures ordered
#Right second toe infection Gangrene
-Appreciate ID and Podiatry
-Antibiotics as above
-Arterial US with multiphasic waveforms
-Wound care Betadine soaked gauze to toe - change every day
-S/P Right 2nd toe amputation secondary to gangrenous changes with exposed bone 05/09/25
# Acute kidney injury - ATN in setting of septic shock
Metabolic Acidosis Resolved
-Patient briefly required CRRT but could not tolerate long
-Ultrasound of the kidneys without obstruction
-Appreciate Renal
-SINDY now resolved
-Cheng discontinued on 05/06
# Anemia secondary to acute illness
# Thrombocytosis secondary to infection
# Hypokalemia-resolved
# Anasarca
# Hypoalbuminemia-Prn lasix
# Drug abuse urine drug screen positive for Fentanyl, Benzos, Amphetamines and Methamphetamines
Patient was discharged to a rehab last admission however he stayed there only for 2 days and signed himself out
# Multidrug resistant hypertension-currently blood pressure stable without medicines.
Patient was on Coreg, losartan, clonidine, Aldactone as outpatient.
-Resumed 25 mg twice daily Coreg on 05/13/2025
-Resumed and milligrams daily losartan on 05/13/2025
-patient was started on standing Clonidine in the ICU post Precedex - decreased to q12H (05/09/25)
-Resumed Spironolactone (05/11)
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 Transferred to [place] . Pt says he was there for 3 months and has weakness of right side and facial droop. Pt appropriately responding.
s/p SECY shunt at [place]
*confirmed cannot get MRI here given shunt
#Vitamin D deficiency-continue replacement
#Chronic back pain
#Morbid obesity with a BMI of 35- Weight loss recommended
#History of nephrolithiasis
#Possible sleep apnea-needs outpatient study as OP.
#ADHD
#Hepatic steatosis per prior imaging-outpatient follow-up
#Active smoker-cessation counseling when able
#DVT prophylaxis-Lovenox
#Full code
Overall prognosis guarded
D/W Pulm
Left message for daughter Any
Time spent over 50 min
Anticipated Discharge: > 48 hours
Subjective/Interval History
-
Date of Service: May 14, 2025
Objective Data
-
Labs:
Laboratory Results
05/14/25
03:20
WBC 12.0 H
Hgb 8.8 L
Hct 27.8 L
Plt Count 653 H
Sodium 137
Potassium 4.4
Chloride 98
Carbon Dioxide 37 H
BUN 21 H
Creatinine 0.6 L
Glucose 112 H
Calcium 8.2 L
Vital Signs:
Vital Signs
Temp Pulse Resp BP Pulse Ox
99.0 F 78 22 162/80 93
05/14/25 06:08 05/14/25 06:00 05/14/25 06:00 05/14/25 06:00 05/14/25 07:47
I&O
05/13/25 05/14/25 05/15/25
06:59 06:59 06:59
Intake Total 1330 / 1330 1110 / 1110
Output Total 4400 / 4400 2200 / 2200
Balance -3070 / -3070 -1090 / -1090
[2025-05-14] MEDS: TEFLARO 270 MG IV ×2 (08:45→15:46)
[2025-05-14] MEDS: SOLU-MEDROL PF 40 MG IV (08:49)
[2025-05-14] MEDS: PROTONIX 40 MG PO (08:50)
[2025-05-14] MEDS: MYCOSTATIN ORAL SUSPENSION 5 ML PO ×4 (08:50→20:07)
[2025-05-14] MEDS: COLACE PO ×2 (08:51→20:08)
[2025-05-14] MEDS: COZAAR 100 MG PO (08:51)
[2025-05-14] MEDS: ZYVOX 600 MG PO ×2 (08:51→20:08)
[2025-05-14] MEDS: COREG 25 MG PO ×2 (08:51→20:07)
[2025-05-14] MEDS: ALDACTONE 50 MG PO (08:51)
[2025-05-14] MEDS: DAKIN'S SOLUTION 0.125% 1/4 STRENGTH 473 ML TOPICAL (08:51)
[2025-05-14] MEDS: SENOKOT 8.6 MG PO (08:51)
[2025-05-14] MEDS: CATAPRES 0.2 MG PO ×2 (08:51→20:07)
[2025-05-14] MEDS: HYDROPHOR 1 APPLIC TOPICAL (08:52)
[2025-05-14] MEDS: DESENEX/MITRAZOL/ZEASORB 1 APPLIC TOPICAL ×2 (08:52→20:08)
[2025-05-14] MEDS: MIRALAX PO (08:53)
--- NOTE | 2025-05-14 09:12 | PTCARENOTE ---
Patient received from overnight cashier. Patient resting comfortably in room. AAO, VSS. Remains on HighFlow N/C 50L @ 50%, will work with respiratory to try and wean. Patient remains with pain in his feet and legs, see NOV. Wound dressings with
drainage, will be changed later today. Continuing ABX. Pain management. No further testing at this time. Call finley in reach.
--- NOTE | 2025-05-14 10:52 | W.PN.ID1 ---
Date of Service
Date of Service: May 14, 2025
Today's Communication
Continue current antibiotics. Monitor blood cultures. Repeat CPK in AM.
Assessment / Plan
Sustained complicated MRSA bacteremia
Pulmonary septic emboli and cavitary MRSA PNA
Septic right knee; s/p washout
Right thigh and calf necrotizing soft tissue infection
Right second toe infection/gangrene/osteomyelitis
Fever -resolving
Leukocytosis -stable
s/p Hypoxemic respiratory failure, self extubated 05/05
SINDY; resolved
Substance abuse (UDS with fentanyl, amphetamine, methamphetamine, benzodiazepine)
Hx CVA (thalamic bleed) with right hemiplegia
Chronic back pain
Recommendations:
TTE without noted valvular disease.
05/06/25 JEAN: NO VALVULAR VEGETATION
Blood cx's remain positive
Continue Serial blood cultures to assess ongoing bacteremia
Sputum cx MRSA
05/06 R knee fluid: 41,220 WBC, 54% polys, neg crystals.
Synovial cx : MRSA
Appreciate Ortho: 05/07/25 s/p washout of R knee (+PUS). Cx MRSA
Appreciate general surgery 05/07 s/p I+D right thigh and calf. Cx MRSA
05/09 s/p R 2nd toe amputation
Continue Daptomycin IV (d#8). Monitor CK closely. Will increase to 12 mg/kg dosing.
Continue linezolid (d#8) for MRSA PNA (daptomycin does not penetrate lung tissue)
Continue ceftaroline (d#4)
Monitor for bone marrow suppression while on linezolid.
Follow CBC
Overall outlook extremely guarded at this time given sustained, high-grade bacteremia, cavitary pneumonia and other comorbidities.
����������������������������������������������������������
Chief Complaint
-: Clinical Sepsis, Pneumonia and Bacteremia
Subjective / Review of Systems
Review of Systems: No Fever and No Chills
Vital Signs / Physical Exam
Vital Signs
Vital Signs
Temp Pulse Resp BP Pulse Ox
99.0 F 80 22 190/88 93
05/14/25 06:08 05/14/25 08:51 05/14/25 06:00 05/14/25 08:51 05/14/25 07:47
Physical Exam
Constitutional: Acutely Ill and Chronically Ill
Eyes: No Conjunctival Hemorrhage and Sclera Anicteric
Cardiovascular: Regular Rate and S1/S2; Negative S3/S4
Pulmonary: Coarse, Non Labored and Other (High flow O2 in place.)
Gastrointestinal: Soft, Non Tender and Normal Bowel Sounds
Extremities: Edema
Wound: Other (RLE dressing dry)
Neurological: Awake and Alert
Lines: Other (midline; no erythema)
Objective Data
Lab Data
Lab Results
05/14/25 03:20
05/14/25 03:20
PT 20.0 Sec (11.4-14.6) H 04/30/25 19:46
INR 1.65 04/30/25 19:46
APTT Cancelled 05/04/25 14:45
Estimated Creat Clear > 125 ml/min 05/14/25 03:20
Lactic Acid 1.9 mmol/L (0.7-2.0) 05/01/25 12:18
Total Bilirubin 1.8 mg/dl (0.2-1.3) H 05/01/25 12:18
AST 38 U/L (17-59) 05/01/25 12:18
ALT 17 U/L (0-50) 05/01/25 12:18
Alkaline Phosphatase 71 U/L (38-126) 05/01/25 12:18
Most recent labs reviewed.
Micro Results:
05/13/25 09:45 Blood Culture - Preliminary
Blood/Venous No Growth in 24 hours- Final report to follow
05/12/25 05:34 Blood Culture - Preliminary
Blood/Venous No Growth in 48 hours- Final report to follow
05/14/25 03:20 Blood Culture - Pending
Blood/Venous
05/11/25 12:40 Blood Culture - Preliminary
Blood/Venous No Growth in 48 hours- Final report to follow
05/07/25 18:35 Wound Culture - Final
Knee - Right Staph aureus MRSA
Gram Stain - Final
05/07/25 18:35 Anaerobic Culture - Final
Knee - Right NO ANAEROBES ISOLATED
05/07/25 18:35 Wound Culture - Final
Leg - Right Staph aureus MRSA
Gram Stain - Final
05/07/25 18:35 Anaerobic Culture - Final
Leg - Right NO ANAEROBES ISOLATED
05/09/25 04:01 Blood Culture - Preliminary
Blood/Venous Staph aureus MRSA
Gram Stain - Preliminary
05/08/25 04:21 Blood Culture - Preliminary
Blood/Venous Staph aureus MRSA
Gram Stain - Preliminary
05/05/25 03:34 Blood Culture - Final
Blood/Venous No Growth - Final Report
05/03/25 04:25 Blood Culture - Final
Blood/Venous Staph aureus MRSA
Gram Stain - Final
05/02/25 03:16 Blood Culture - Final
Blood/Venous Staph aureus MRSA
Gram Stain - Final
05/07/25 04:55 Blood Culture - Preliminary
Blood/Venous Staph aureus MRSA
Gram Stain - Preliminary
05/04/25 03:13 Blood Culture - Final
Blood/Venous No Growth - Final Report
05/06/25 08:16 Blood Culture - Preliminary
Blood/Venous Staph aureus MRSA
Gram Stain - Preliminary
05/06/25 13:19 Body Fluid Culture - Final
Synovial Fluid Staph aureus MRSA
Gram Stain - Final
04/30/25 19:46 Blood Culture - Final
Blood/Venous Staph aureus MRSA
Gram Stain - Final
05/04/25 09:25 Respiratory Culture - Final
Endotracheal Staph aureus MRSA
Gram Stain - Final
05/01/25 17:45 Blood Culture - Final
Blood/Venous Staph aureus MRSA
Gram Stain - Final
04/30/25 19:46 Blood Culture - Final
Blood/Venous Staph aureus MRSA
Gram Stain - Final
05/01/25 01:32 Urine Culture - Final
Urine Yeast
05/01/25 01:17 Blood Parasites Smear - Final
Blood/Venous
04/30/25 23:02 Influenza Types A & B (GIORGIO) - Final
Nasal Swab Negative for Influenza A & B, NAAT
Negative results must be combined with clinical observations
and patient history.
Nucleic Acid Amplification test (NAAT)performed on the
[employer] platform.
Imaging:
05/12/2025 CXR (portable): improved aeration of the right upper lung compared to prior days imaging. Otherwise, extensive diffuse bilateral patchy, nodular and confluent airspace opacities.
05/02/25 CT RLE: Subcutaneous stranding within the soft tissues of the anterior right thigh, and [id number] anterior soft tissues. No drainable abscess is appreciated. Moderate suprapatellar joint effusion, with areas of loculation.
05/01/2025 ECHO (TTE): EF 55%. Normal biventricular size and systolic function. No significant valvular disease. No obvious vegetations.
05/01/2025 CXR (portable): bilateral interstitial and airspace disease noted which may reflect pulmonary edema or pneumonia. Small bilateral pleural effusions noted. Please see full dictation for additional detail.
05/01/2025 Abdominal x-ray. Enteric tube noted in stomach.
05/01/2025 Renal ultrasound: unremarkable renal ultrasound without hydronephrosis, contour deforming solid renal mass or echogenic shadowing foci to suggest renal calculi. Bilateral pleural effusions noted.
05/01/2025 Duplex ultrasound lower extremity: no evidence of DVT in the bilateral lower extremities
04/30/2025 X-ray right foot: soft tissue injury versus ulceration involving the second digit with soft tissue swelling. The cortex of the distal phalanx is indistinct and the possibility of osteomyelitis cannot be excluded. There is soft tissue
swelling of the first digit. No radiographic evidence to suggest osteomyelitis. Please see full dictation for additional detail.
[2025-05-14] MEDS: MIRALAX 17 GRAMS PO (11:59)
--- NOTE | 2025-05-14 12:42 | CM ---
CM following for discharge planning needs. Pt remains in IMU, requiring complete care; continues on hi flow O2.
Plan: CM will continue to follow for discharge to SNF when medically stable. [facility] has accepted for transfer when medically stable.
[2025-05-14] MEDS: CUBICIN 130 MG IV (15:46)
[2025-05-14] MEDS: LOVENOX 40 MG SC (17:45)
[2025-05-14] MEDS: SENOKOT PO (20:08)
--- NOTE | 2025-05-14 21:28 | PTCARENOTE ---
Caring for pt overnight. aaox3, forgetful. NSR, remains on HFNC 50L 50%. Q2T. wound dressing CDI. Brody wraps removed. CC placed for incontinent, frequency & resp. status. VSS, bp runs high but PO meds were given. Always c/o 10/10 pain despite 20mg
oxy, but looks comfortable in bed and sleeping. IV abx. L midline. Legs elevated, q2t. Will continue to monitor.
[2025-05-15] VITALS (12 sets, daily range): BP systolic 119–165; BP diastolic 56–90; BMI 35.2
[2025-05-15] MEDS: TEFLARO 270 MG IV ×3 (01:03→16:14)
[2025-05-15] MEDS: ROXICODONE 20 MG PO ×5 (02:43→21:41)
[2025-05-15 06:03] LABS: Hematocrit 30.2 % (39.0-52.0); Hemoglobin 9.4 g/dL (13.0-18.0); Mean Corp Hgb Conc. 31.1 g/dL (33.0-37.0); Mean Corpuscular Volume 87.0 fL (80.0-94.0); Nucleated Red Blood Cells % 0 % (-); Platelet Count 623 10^3/uL (130-400); Red Cell Dist. Width 16.1 % (11.5-14.5)
[2025-05-15 06:19] LABS: Blood Urea Nitrogen 22 mg/dl (9-20); Calcium 8.6 mg/dl (8.4-10.2); Carbon Dioxide 37 mmol/L (22-30); Chloride 98 mmol/L (98-107); Estimated Creatinine Clearance > 125 ml/min; Glucose 98 mg/dl (70-99); Potassium 4.5 mmol/L (3.5-5.1); Sodium 137 mmol/L (135-145); eGFR > 60.00
--- NOTE | 2025-05-15 08:42 | W.PN.HOSP.TC ---
Today's Communication/Plan
-
Continue antibiotics per ID
Back on his antihypertensive regimen
On IV steroids will continue per pulmonary.
Follow H&H
Continue PT
Assessment / Plan
Assessment / Plan
Mr. Patrice Mera is a 50 yo man with hx polysubstance abuse, prior CVA (thalamic bleed; right hemiplegia), essential HTN, admitted 04/30 with septic shock 2/2 MRSA bacteremia, SINDY with anion gap metabolic acidosis and hypoxemic respiratory failure.
He is found to have septic joint right knee and development of necrotizing fasciitis.
Venous Dopplers lower extremity-no DVT noted
Echo 05/01/2025-normal biventricular size and systolic function. EF 55 to 60% no vegetation
CT right lower extremity with contrast-subcutaneous stranding within the soft tissues of the anterior thigh and below the knee. No abscess. Moderate suprapatellar joint effusion with areas of loculation. Moderate pelvic free fluid of unknown
etiology. Right inguinal and right iliac chain lymphadenopathy which may be reactive, neoplastic enlargement is not excluded.
Chest x-ray reviewed by me-bilateral infiltrates/edema
LENNY-right LENNY 0.75 and left LENNY 0.83 TBI were obtainable. Doppler waveforms at the ankle bilaterally shows artifacts but remain multiphasic
Renal ultrasound-unremarkable renal ultrasound. Bilateral pleural effusions
CT PE study-no evidence of central PE. Extensive bilateral cavitary nodular opacities compatible with bilateral cavitary pneumonia likely based on septic emboli. Small to moderate bilateral pleural effusions. Gynecomastia. Small amount of
ascites in the right upper quadrant adjacent to the liver.
JEAN 05/06/25
SUMMARY
1. Hyperdynamic left ventricular function.
2. Left ventricular systolic function is greater than 75% by visual assesment.
3. No evidence of any valvular vegetations.
4. Trace mitral valve regurgitation.
CT chest 05/11/2025-worsening severe bilateral cavitary nodules with confluent consolidation most in keeping with pneumonia likely related to septic emboli. Underlying neoplasm not excluded. Small to moderate bilateral pleural effusions progressed
on the left.
#Acute respiratory failure, VDRF
-patient was intubated on admission for multiple reasons in setting of septic shock, pneumonia, septic emboli
-CTA without PE
-s/p self extubation on 05/05
- Without respiratory distress but still requiring mid flow oxygen via nasal cannula at 50%
-CT Chest -noted with bilateral cavitary nodules
-Methylprednisolone 40 mg IV daily started on 05/11/25 per pulmonary
-Encouraged to use Acapella or incentive spirometry
#MRSA Bacteremia
Septic Shock - patient was on Levo, Vaso, Epi, Giapreza; remains off pressors
Septic Arthritis Right Knee
Necrotizing Fasciitis right medial thigh and calf
- JEAN 05/06 without e/o vegetation
- Right knee joint aspirate positive for MRSA 05/06
- Exam 05/07 with new concern for necrotizing fasciitis right medial thigh and calf Daily wound care and packing-of the 2 wounds
- Appreciate general surgery and ortho, patient is s/p I&D of necrotizing soft tissue infection and washout right knee on 05/07/25
- 05/07 antibiotics changed to IV Daptomycin, oral Linezolid, Teflaro started on 05/11/2025
- Last positive Blood cultures from 05/09, negative since 05/11/25.
-Blood pressure stable. White count normalized.
#Right second toe infection Gangrene
-Appreciate ID and Podiatry
-Antibiotics as above
-Arterial US with multiphasic waveforms
-Wound care Betadine soaked gauze to toe - change every day
-S/P Right 2nd toe amputation secondary to gangrenous changes with exposed bone 05/09/25
# Acute kidney injury - ATN in setting of septic shock
Metabolic Acidosis Resolved
-Patient briefly required CRRT but could not tolerate long
-Ultrasound of the kidneys without obstruction
-Appreciate Renal
-SINDY now resolved
-Cheng discontinued on 05/06
- Creatinine 1.06 today
# Anemia secondary to acute illness
# Thrombocytosis secondary to infection
# Anasarca
# Hypoalbuminemia-Prn lasix
# Drug abuse urine drug screen positive for Fentanyl, Benzos, Amphetamines and Methamphetamines
Patient was discharged to a rehab last admission however he stayed there only for 2 days and signed himself out
# Multidrug resistant hypertension-currently blood pressure stable without medicines.
Patient was on Coreg, losartan, clonidine, Aldactone as outpatient.
- Patient back on clonidine, spironolactone, losartan, Coreg.
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 Transferred to [place] . Pt says he was there for 3 months and has weakness of right side and facial droop.
s/p PRODUCTION MACHINIST shunt at [place]
*confirmed cannot get MRI here given shunt
#Vitamin D deficiency-continue replacement
#Chronic back pain
#Morbid obesity with a BMI of 35- Weight loss recommended
#History of nephrolithiasis
#Possible sleep apnea-needs outpatient study as OP.
#ADHD
#Hepatic steatosis per prior imaging-outpatient follow-up
#Active smoker-cessation counseling when able
#DVT prophylaxis-Lovenox
#Full code
Overall prognosis guarded
Total time spent on today's encounter was 52 minutes which included time spent in counseling the patient/family regarding diagnosis and treatment plan as listed above, goals of care, and symptom management. Case was discussed with nursing staff,
specialists, and care coordinators/case management. All labs and imaging personally reviewed by me. Remainder the time spent in detailed review of previous records, lab data, imaging, and other medical provider documentation.
Anticipated Discharge: > 48 hours
Subjective/Interval History
-
Date of Service: May 15, 2025
Improving shortness of breath. Still requiring mid flow oxygen via nasal cannula.
Chest pain has resolved.
Appetite is good. No nausea. No diarrhea. No fever or chills.
Voicing no specific complaint.
Objective Data
-
Labs:
Laboratory Results
05/15/25
05:39
WBC 10.5
Hgb 9.4 L
Hct 30.2 L
Plt Count 623 H
Sodium 137
Potassium 4.5
Chloride 98
Carbon Dioxide 37 H
BUN 22 H
Creatinine 0.6 L
Glucose 98
Calcium 8.6
Vital Signs:
Vital Signs
Temp Pulse Resp BP Pulse Ox
98.2 F 75 19 153/82 92
05/15/25 07:31 05/15/25 06:00 05/15/25 06:00 05/15/25 06:00 05/15/25 06:00
I&O
05/14/25 05/15/25 05/16/25
06:59 06:59 06:59
Intake Total 1110 / 1110 840 / 840
Output Total 2200 / 2200 2225 / 2225 1500 / 1500
Balance -1090 / -1090 -1385 / -1385 -1500 / -1500
Physical Exam
-
General: No Apparent Distress
Respiratory: Crackles (Few bibasilar) and Non Labored Respirations; Negative Wheezes or Accessory Resp Muscle Use
Cardiac: Regular Rhythm and S1/S2
GI: Soft
Musculoskeletal: Edema, Right Lower Extrem (With chronic venous stasis changes bilaterally) and Edema, Left Lower Extrem
Neuro: AO x 3
Psych: Calm; Negative Confused
Data Reviewed
-
Labs: Labs Reviewed by me
[2025-05-15] MEDS: MYCOSTATIN ORAL SUSPENSION 5 ML PO ×4 (09:01→20:13)
[2025-05-15] MEDS: SENOKOT PO ×3 (09:02→20:14)
[2025-05-15] MEDS: COLACE PO ×3 (09:02→20:13)
[2025-05-15] MEDS: CATAPRES 0.2 MG PO ×2 (09:02→20:13)
[2025-05-15] MEDS: COREG 25 MG PO ×2 (09:03→20:13)
[2025-05-15] MEDS: PROTONIX 40 MG PO (09:03)
[2025-05-15] MEDS: COZAAR 100 MG PO (09:03)
[2025-05-15] MEDS: ALDACTONE 50 MG PO (09:03)
[2025-05-15] MEDS: SOLU-MEDROL PF 40 MG IV (09:04)
[2025-05-15] MEDS: ZYVOX 600 MG PO ×2 (09:04→20:13)
[2025-05-15] MEDS: MIRALAX 17 GRAMS PO (09:04)
[2025-05-15] MEDS: DAKIN'S SOLUTION 0.125% 1/4 STRENGTH 473 ML TOPICAL (11:07)
[2025-05-15] MEDS: HYDROPHOR 1 APPLIC TOPICAL (11:07)
[2025-05-15] MEDS: DESENEX/MITRAZOL/ZEASORB 1 APPLIC TOPICAL ×2 (11:08→20:16)
--- NOTE | 2025-05-15 12:37 | W.PN.ID1 ---
Date of Service
Date of Service: May 15, 2025
Today's Communication
Continue current antibiotics.
Assessment / Plan
Sustained complicated MRSA bacteremia
Pulmonary septic emboli and cavitary MRSA PNA
Septic right knee; s/p washout
Right thigh and calf necrotizing soft tissue infection
Right second toe infection/gangrene/osteomyelitis
Fever -resolving
Leukocytosis -stable
s/p Hypoxemic respiratory failure, self extubated 05/05
SINDY; resolved
Substance abuse (UDS with fentanyl, amphetamine, methamphetamine, benzodiazepine)
Hx CVA (thalamic bleed) with right hemiplegia
Chronic back pain
Recommendations:
05/01/20 TTE without valvular disease.
05/06/25 JEAN: NO VALVULAR VEGETATION
Sputum cx MRSA
Blood cx's negative x 72 hours.
Continue Serial blood cultures to assess ongoing bacteremia
05/06 R knee fluid: 41,220 WBC, 54% polys, neg crystals.
Synovial cx : MRSA
Appreciate Ortho: 05/07/25 s/p washout of R knee (+PUS). Cx MRSA
Appreciate general surgery 05/07 s/p I+D right thigh and calf. Cx MRSA
05/09 s/p R 2nd toe amputation
Continue Daptomycin IV (d#9).
- Monitor CK closely while on Dapto
Continue linezolid (d#9) for MRSA PNA (daptomycin does not penetrate lung tissue)
- Monitor for bone marrow suppression while on linezolid.
Continue ceftaroline (d#5)
Follow CBC
Overall outlook extremely guarded at this time given sustained, high-grade bacteremia, cavitary pneumonia and other comorbidities.
����������������������������������������������������������
Chief Complaint
-: Clinical Sepsis, Pneumonia and Bacteremia
Subjective / Review of Systems
Patient seen and examined. Now off high flow O2.
Vital Signs / Physical Exam
Vital Signs
Vital Signs
Temp Pulse Resp BP Pulse Ox
98.2 F 86 24 150/75 97
05/15/25 11:16 05/15/25 09:03 05/15/25 09:01 05/15/25 09:03 05/15/25 09:01
Physical Exam
Constitutional: Acutely Ill and Chronically Ill
Eyes: No Conjunctival Hemorrhage and Sclera Anicteric
Cardiovascular: Regular Rate and S1/S2; Negative S3/S4
Pulmonary: Coarse, Non Labored and Other (Mid flow O2 in place.)
Gastrointestinal: Soft, Non Tender and Normal Bowel Sounds
Extremities: Edema
Wound: Other (RLE dressing dry)
Neurological: Awake and Alert
Lines: Other (midline; no erythema)
Objective Data
Lab Data
Lab Results
05/15/25 05:39
05/15/25 05:39
PT 20.0 Sec (11.4-14.6) H 04/30/25 19:46
INR 1.65 04/30/25 19:46
APTT Cancelled 05/04/25 14:45
Estimated Creat Clear > 125 ml/min 05/15/25 05:39
Lactic Acid 1.9 mmol/L (0.7-2.0) 05/01/25 12:18
Total Bilirubin 1.8 mg/dl (0.2-1.3) H 05/01/25 12:18
AST 38 U/L (17-59) 05/01/25 12:18
ALT 17 U/L (0-50) 05/01/25 12:18
Alkaline Phosphatase 71 U/L (38-126) 05/01/25 12:18
Most recent labs reviewed.
Micro Results:
05/13/25 09:45 Blood Culture - Preliminary
Blood/Venous No Growth in 48 hours- Final report to follow
05/09/25 04:01 Blood Culture - Final
Blood/Venous Staph aureus MRSA
Gram Stain - Final
05/08/25 04:21 Blood Culture - Final
Blood/Venous Staph aureus MRSA
Gram Stain - Final
05/07/25 04:55 Blood Culture - Final
Blood/Venous Staph aureus MRSA
Gram Stain - Final
05/06/25 08:16 Blood Culture - Final
Blood/Venous Staph aureus MRSA
Gram Stain - Final
05/12/25 05:34 Blood Culture - Preliminary
Blood/Venous No Growth in 72 hours- Final report to follow
05/15/25 05:39 Blood Culture - Pending
Blood/Venous
05/14/25 03:20 Blood Culture - Preliminary
Blood/Venous No Growth in 24 hours- Final report to follow
05/11/25 12:40 Blood Culture - Preliminary
Blood/Venous No Growth in 72 hours- Final report to follow
05/07/25 18:35 Wound Culture - Final
Knee - Right Staph aureus MRSA
Gram Stain - Final
05/07/25 18:35 Anaerobic Culture - Final
Knee - Right NO ANAEROBES ISOLATED
05/07/25 18:35 Wound Culture - Final
Leg - Right Staph aureus MRSA
Gram Stain - Final
05/07/25 18:35 Anaerobic Culture - Final
Leg - Right NO ANAEROBES ISOLATED
05/05/25 03:34 Blood Culture - Final
Blood/Venous No Growth - Final Report
05/03/25 04:25 Blood Culture - Final
Blood/Venous Staph aureus MRSA
Gram Stain - Final
05/02/25 03:16 Blood Culture - Final
Blood/Venous Staph aureus MRSA
Gram Stain - Final
05/04/25 03:13 Blood Culture - Final
Blood/Venous No Growth - Final Report
05/06/25 13:19 Body Fluid Culture - Final
Synovial Fluid Staph aureus MRSA
Gram Stain - Final
04/30/25 19:46 Blood Culture - Final
Blood/Venous Staph aureus MRSA
Gram Stain - Final
05/04/25 09:25 Respiratory Culture - Final
Endotracheal Staph aureus MRSA
Gram Stain - Final
05/01/25 17:45 Blood Culture - Final
Blood/Venous Staph aureus MRSA
Gram Stain - Final
04/30/25 19:46 Blood Culture - Final
Blood/Venous Staph aureus MRSA
Gram Stain - Final
05/01/25 01:32 Urine Culture - Final
Urine Yeast
05/01/25 01:17 Blood Parasites Smear - Final
Blood/Venous
04/30/25 23:02 Influenza Types A & B (GIORGIO) - Final
Nasal Swab Negative for Influenza A & B, NAAT
Negative results must be combined with clinical observations
and patient history.
Nucleic Acid Amplification test (NAAT)performed on the
[employer] platform.
Imaging:
05/12/2025 CXR (portable): improved aeration of the right upper lung compared to prior days imaging. Otherwise, extensive diffuse bilateral patchy, nodular and confluent airspace opacities.
05/02/25 CT RLE: Subcutaneous stranding within the soft tissues of the anterior right thigh, and [id number] anterior soft tissues. No drainable abscess is appreciated. Moderate suprapatellar joint effusion, with areas of loculation.
05/01/2025 ECHO (TTE): EF 55%. Normal biventricular size and systolic function. No significant valvular disease. No obvious vegetations.
05/01/2025 CXR (portable): bilateral interstitial and airspace disease noted which may reflect pulmonary edema or pneumonia. Small bilateral pleural effusions noted. Please see full dictation for additional detail.
05/01/2025 Abdominal x-ray. Enteric tube noted in stomach.
05/01/2025 Renal ultrasound: unremarkable renal ultrasound without hydronephrosis, contour deforming solid renal mass or echogenic shadowing foci to suggest renal calculi. Bilateral pleural effusions noted.
05/01/2025 Duplex ultrasound lower extremity: no evidence of DVT in the bilateral lower extremities
04/30/2025 X-ray right foot: soft tissue injury versus ulceration involving the second digit with soft tissue swelling. The cortex of the distal phalanx is indistinct and the possibility of osteomyelitis cannot be excluded. There is soft tissue
swelling of the first digit. No radiographic evidence to suggest osteomyelitis. Please see full dictation for additional detail.
Care Review
Plan reviewed with: Physician (Pulmonary)
--- NOTE | 2025-05-15 13:00 | WOUNDNOTE ---
[facility] RN note: Patient seen with CHAYA Bauer and PCT Mara. Patient's R 2nd toe amp site with sutures intact without drainage or erythema. Dry gauze pad and Kerlix applied. R medial knee/upper calf full thickness wound pale pink with some yellow tissue. R
medial thigh full thickness wound pink. R lateral calf dermal venous ulcer almost healed. Silicone border foam applied. Skin on sacrum and heels intact. Protective sacral shaped silicone border foam applied to sacrum. Heels off bed with bariatric
air chair cushion. Patient is on a Bariatric Total care air bed. Patient's underpads soaked with urine. Assisted RN and PCT with turning and underpad/draw sheet change, skin care. CHAYA Bauer to redress R medial thigh and knee wounds. Patient tolerating
Brody wraps. Patient's appetite good. Nasal bridge blanchable mild red and intact. Protective Exuderm hydrocolloid changed by CHAYA Bauer. Will follow as needed.
--- NOTE | 2025-05-15 13:00 | WOUNDNOTE ---
R KNEE/UPPER CALF (MEDIAL)
--- NOTE | 2025-05-15 13:00 | WOUNDNOTE ---
R 2ND TOE AMP SITE
[2025-05-15] MEDS: CUBICIN 130 MG IV (13:26)
[2025-05-15] MEDS: LOVENOX 40 MG SC (16:14)
--- NOTE | 2025-05-15 16:55 | PTCARENOTE ---
Patient awake, alert and oriented. Eating majority of meals. Complaints of pain treated with Oxycodone 20mg. Wound care provided with nuclear weapons specialist.
[2025-05-16] VITALS (12 sets, daily range): BP systolic 121–151; BP diastolic 60–74; BMI 34.1
[2025-05-16] MEDS: TEFLARO 270 MG IV ×3 (00:43→16:07)
[2025-05-16] MEDS: ROXICODONE 20 MG PO ×5 (02:07→22:36)
--- NOTE | 2025-05-16 05:18 | PTCARENOTE ---
Caring for pt overnight. aaox3, forgetful. NSR on monitor. Remains on 12LMF, looks comfortable, no SOB. Refused q2t overnight. Wound dressing CDI. Legs elevated, good pulses. CHG. Mouth care. Ivabx. L midline. Good oral intake. Good UO. VSS. Will
monitor.
[2025-05-16 05:23] LABS: Hematocrit 31.9 % (39.0-52.0); Hemoglobin 9.7 g/dL (13.0-18.0); Mean Corp Hgb Conc. 30.4 g/dL (33.0-37.0); Mean Corpuscular Volume 88.9 fL (80.0-94.0); Nucleated Red Blood Cells % 0 % (-); Platelet Count 570 10^3/uL (130-400); Red Cell Dist. Width 16.1 % (11.5-14.5)
[2025-05-16 05:40] LABS: Blood Urea Nitrogen 22 mg/dl (9-20); Calcium 8.3 mg/dl (8.4-10.2); Carbon Dioxide 36 mmol/L (22-30); Chloride 97 mmol/L (98-107); Estimated Creatinine Clearance > 125 ml/min; Glucose 126 mg/dl (70-99); Potassium 4.5 mmol/L (3.5-5.1); Sodium 137 mmol/L (135-145); eGFR > 60.00
--- NOTE | 2025-05-16 07:27 | W.PN.PUL3 ---
Today's Communication / Plan
-
- Prednisone 30 mg daily for 5 more days then discontinue steroids
- Recommend follow-up CT chest in 7 to 10 days or prior to discharge
- Antibiotics per infectious disease service
- Pulmonary team will sign off, please call as needed
- Outpatient pulmonary follow-up, information added to discharge section
Assessment
-
Patient is a 50-year-old male with previous history of opiate use disorder, left thalamic intracranial hemorrhage, presenting to ER with complaints of chest pain, shortness of breath and right toe pain. He arrived in the ER in apparent
respiratory distress with increased work of breathing. He was tried on BiPAP but could not tolerate it. He was admitted here recently in January for opiate use disorder and withdrawal symptoms. UDS is positive for fentanyl, amphetamines,
benzodiazepines. Chest x-ray demonstrating mild left lower lobe pneumonia, he is on HFNC (PAO2 on ABG 73). Admitted to ICU for hypoxemia.
Profound septic shock on 4 pressors: levo, vaso, epi, giapreza--improved now off pressors
Bilateral septic emboli on CAT scan.
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
Acute hypoxic respiratory failure on high flow nasal cannula-->
-Now on daptomycin intubation 05/01
Extubated 05/05/2025.
Metabolic acidosis-resolved
Acute kidney injury, creatinine 6.9-resolved
MRSA endocarditis with pulmonary septic emboli.
Tick bite-negative serology
Possible skin infection/cellulitis
UDS +Fent, benzos, amphetamines
Conditions present [employer]:
Cellulitis left lower extremity
Hypertensive urgency
Opiate abuse with withdrawal
Microscopic hematuria, Albuminuria noted in the urine
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
Leukocytosis- elevated since 2008 labs
Chronic back pain
Morbid obesity with a BMI of 39
History of nephrolithiasis
Possible sleep apnea-needs outpatient study asleep
ADHD
Hepatic steatosis per prior imaging
Active smoker
Assessment and plan:
#1. MRSA bacteremia with septic shock
- Shock has since resolved, patient off pressors, hemodynamically stable
- Antimicrobial therapy per infectious disease service, had been on dual therapy with daptomycin and linezolid. Ceftaroline added on 05/11
- WBC count continues to decrease, blood cultures finally negative.
#2. Acute hypoxic respiratory failure with bilateral cavitary pneumonia/septic emboli with bilateral pleural effusions
- Patient appears more comfortable. Currently on mid flow nasal cannula, 12 L, saturating 96%, Resp rate 18/min. Work of breathing normal. CXR continues to show improved aeration of right lung.
- Completed 5 days of IV Solumedrol, considering positive response and continued improvement, will switch to Prednisone 30 mg daily for 5 more days then stop taking.
- 05/11/2025: had worsening hypoxia, switched to high flow nasal cannula. Chest x-ray showed worsening right-sided opacity. CT chest was pursued which showed significant worsening of underlying consolidation with essentially necrotizing pneumonia
on the right side. Pleural effusion still fairly small hold off on drainage for now. Added IV Solu-Medrol 40 daily in view of severity of underlying pneumonia.
- MRSA noted on cultures, currently on IV antibiotics
- Intubated 05/01, extubated 05/05.
- Incentive spirometry, Acapella/flutter valve, activity as tolerated
- Small pleural effusion on the right and small to moderate on the left. CXR improving. F/u CT chest in 7-10 days
- Pulmonary team will sign off, please call as needed.
Cultures reviewed
Persistent staph
Infectious disease following-correspondence reviewed
Tick noted-serology negative
Continue antibiotics, vancomycin discontinued-now on daptomycin and linezolid
Pressors weaned-was on 4 pressors including giapreza-now off with normal function and
Echocardiogram with normal function and no evidence for endocarditis
JEAN 05/06/2025: Hyperdynamic left ventricle. Left ventricular systolic function greater than 75%. No evidence for any valvular vegetations. Trace mitral valve regurgitation.
Podiatry following-correspondence reviewed.
Right second toe amputation 05/09/25
Orthopedics following-correspondence reviewed
Irrigation admitted with arthrotomy right septic knee 05/06/2025
Monitor renal function
SINDY resolved
Nephrology following-correspondence reviewed prophylaxis
DVT-mechanical as well as Lovenox
GI prophylaxis-on pantoprazole
Nutrition
Physical therapy
Outpatient pulmonary [id number] PFTs and sleep study as well as radiographic follow-up
Total time spent on this consultation/encounter __35__ minutes which includes review of history, physical exam, medications, laboratory data, personal review of imaging, extensive review of outpatient records, discussion with care team and
respiratory therapy.
Discussed with interventional radiology and infectious disease service.
Diagnostic Data
Chest X-Ray: 04/30/25- Mild left lower lobe pneumonia. Trace bilateral pleural effusions.
CT Scan: CT head 01/2025: There is a ventricular shunt present which enters from the right superior frontal region, with tip of the shunt to the junction of the inferior frontal horn of the right lateral ventricle and the third ventricle. There is
decreased size of the right lateral ventricle when compared to the left, and slight shift of the septum pellucidum toward the left, and findings suggest peripheral arterial shunting of the right lateral ventricle when compared to the left. There is
no evidence of acute intracranial hemorrhage. In the inferior aspect of the left thalamus, there is a small focal area of decreased density measuring 1.5 cm transverse by 0.8 cm AP, compatible with encephalomalacia from previous region of
intracranial hemorrhage. No abnormal extra-axial collection is identified. There is 80% opacification of the sphenoid sinus, slightly improved from previous examination. The rest of the paranasal sinuses appear clear. The mastoid air cells appear
clear.
AP 02/23/25- 2 small nephroliths within the posterior upper pole the right kidney. As described, evidence for blood products/hematoma within the calyces of the upper pole of the right kidney. Wall of the urinary bladder appears mildly diffusely
thickened, which may be on the basis of incomplete distention, but correlate clinically to exclude cystitis. Mild hepatomegaly with no focal hepatic lesion. Thickening of the wall the duodenum extending from the duodenal bulb contiguously through
the distal third portion, with stranding of the adjacent fat. Main differential considerations of primary duodenitis, versus reactive duodenitis from pancreatitis. There is mild stranding of the fat adjacent to the pancreatic head with no focal
collection. Mild to moderate subcutaneous edema greatest in the lateral flanks.
Echo: 05/01/25- Normal biventricular size and systolic function without regional wall motion abnormality. LV ejection fraction is 55-60% by visual assessment. Normal diastolic function. No significant valvular disease. No obvious vegetation. No
prior study available for comparison.
Reports and relevant images were personally reviewed.
Subjective Data
-
Date of Service:
Date of Service: May 16, 2025
Chief Complaint: Pulmonary Follow Up and Dyspnea Follow Up
Subjective:
Patient comfortably lying in bed in no acute distress. Overall reports feeling much better.
Review of Systems
Genitourinary: Other (No new symptoms reported.)
Objective Data
Data Reviewed
Vital Signs / I&O / Oxygen:
Vital Signs
Temp Pulse Resp BP Pulse Ox
98.3 F 72 15 147/67 98
05/16/25 07:22 05/16/25 06:00 05/16/25 06:00 05/16/25 06:00 05/16/25 06:00
Intake and Output
05/15/25 05/16/25 05/17/25
06:59 06:59 06:59
Intake Total 840 / 840 480 / 480
Output Total 2225 / 2225 3550 / 3550
Balance -1385 / -1385 -3070 / -3070
SaO2 [CPAP/PSV] 94
SaO2 [A/C] 94
SaO2 98
Nasal Cannula flow liters per 40
minute
Physical Exam
General: Respiratory Distress (n) and Comfortable
HEENT: Normocephalic, Anicteric, Moist Mucous Membranes and Other (Thick neck)
Cardiovascular: Regular Rhythm
Respiratory: Wheeze (n), Crackles (Few basilar), Rhonchi (Significantly improved) and Non-Labored Respirations
GI: Soft, Non Distended and Non Tender
Neurology: Awake and Alert
Skin: Warm, Good Color, Cyanosis (n), Jaundice and Rash
Labs/Micro/Reports
Lab Data
05/16/25 04:52
05/16/25 04:52
Microbiology
05/15/25 05:39 Blood/Venous Blood Culture - Preliminary
No Growth in 24 hours- Final report to follow
05/12/25 05:34 Blood/Venous Blood Culture - Preliminary
No Growth in 4 days- Final report to follow
05/14/25 03:20 Blood/Venous Blood Culture - Preliminary
No Growth in 48 hours- Final report to follow
05/11/25 12:40 Blood/Venous Blood Culture - Preliminary
No Growth in 4 days- Final report to follow
05/13/25 09:45 Blood/Venous Blood Culture - Preliminary
No Growth in 48 hours- Final report to follow
05/09/25 04:01 Blood/Venous Blood Culture - Final
Staph aureus MRSA
05/09/25 04:01 Blood/Venous Gram Stain - Final
05/08/25 04:21 Blood/Venous Blood Culture - Final
Staph aureus MRSA
05/08/25 04:21 Blood/Venous Gram Stain - Final
05/07/25 04:55 Blood/Venous Blood Culture - Final
Staph aureus MRSA
05/07/25 04:55 Blood/Venous Gram Stain - Final
05/06/25 08:16 Blood/Venous Blood Culture - Final
Staph aureus MRSA
05/06/25 08:16 Blood/Venous Gram Stain - Final
05/07/25 18:35 Knee - Right Wound Culture - Final
Staph aureus MRSA
05/07/25 18:35 Knee - Right Gram Stain - Final
05/07/25 18:35 Knee - Right Anaerobic Culture - Final
NO ANAEROBES ISOLATED
05/07/25 18:35 Leg - Right Wound Culture - Final
Staph aureus MRSA
05/07/25 18:35 Leg - Right Gram Stain - Final
05/07/25 18:35 Leg - Right Anaerobic Culture - Final
NO ANAEROBES ISOLATED
--- NOTE | 2025-05-16 09:19 | W.PN.HOSP.TC ---
Today's Communication/Plan
-
Continue current antibiotics
Switch steroid to oral prednisone
Wean oxygen as able
Continue with PT OT
Assessment / Plan
Assessment / Plan
Mr. Patrice Mera is a 50 yo man with hx polysubstance abuse, prior CVA (thalamic bleed; right hemiplegia), essential HTN, admitted 04/30 with septic shock 2/2 MRSA bacteremia, SINDY with anion gap metabolic acidosis and hypoxemic respiratory failure.
He is found to have septic joint right knee and development of necrotizing fasciitis.
Venous Dopplers lower extremity-no DVT noted
Echo 05/01/2025-normal biventricular size and systolic function. EF 55 to 60% no vegetation
CT right lower extremity with contrast-subcutaneous stranding within the soft tissues of the anterior thigh and below the knee. No abscess. Moderate suprapatellar joint effusion with areas of loculation. Moderate pelvic free fluid of unknown
etiology. Right inguinal and right iliac chain lymphadenopathy which may be reactive, neoplastic enlargement is not excluded.
Chest x-ray reviewed by me-bilateral infiltrates/edema
LENNY-right LENNY 0.75 and left LENNY 0.83 TBI were obtainable. Doppler waveforms at the ankle bilaterally shows artifacts but remain multiphasic
Renal ultrasound-unremarkable renal ultrasound. Bilateral pleural effusions
CT PE study-no evidence of central PE. Extensive bilateral cavitary nodular opacities compatible with bilateral cavitary pneumonia likely based on septic emboli. Small to moderate bilateral pleural effusions. Gynecomastia. Small amount of
ascites in the right upper quadrant adjacent to the liver.
JEAN 05/06/25
SUMMARY
1. Hyperdynamic left ventricular function.
2. Left ventricular systolic function is greater than 75% by visual assesment.
3. No evidence of any valvular vegetations.
4. Trace mitral valve regurgitation.
CT chest 05/11/2025-worsening severe bilateral cavitary nodules with confluent consolidation most in keeping with pneumonia likely related to septic emboli. Underlying neoplasm not excluded. Small to moderate bilateral pleural effusions progressed
on the left.
#Acute respiratory failure, VDRF
-patient was intubated on admission for multiple reasons in setting of septic shock, pneumonia, septic emboli
-CTA without PE
-s/p self extubation on 05/05
- Without respiratory distress ; currently on mid flow at 12 L which is an improvement
-CT Chest -noted with bilateral cavitary nodules
-Methylprednisolone 40 mg IV daily started on 05/11/25 per pulmonary-getting switched to oral prednisone for 5 days. No wheeze noted today.
-Encouraged to use Acapella or incentive spirometry
#MRSA Bacteremia
Septic Shock - patient was on Levo, Vaso, Epi, Giapreza; remains off pressors
Septic Arthritis Right Knee
Necrotizing Fasciitis right medial thigh and calf
- JEAN 05/06 without e/o vegetation
- Right knee joint aspirate positive for MRSA 05/06
- Exam 05/07 with new concern for necrotizing fasciitis right medial thigh and calf Daily wound care and packing-of the 2 wounds
- Appreciate general surgery and ortho, patient is s/p I&D of necrotizing soft tissue infection and washout right knee on 05/07/25
- 05/07 antibiotics changed to IV Daptomycin, oral Linezolid, Teflaro started on 05/11/2025
- Last positive Blood cultures from 05/09, negative since 05/11/25.
-Blood pressure stable. White count improved.
#Right second toe infection Gangrene
-Appreciate ID and Podiatry
-Antibiotics as above
-Arterial US with multiphasic waveforms
-Wound care Betadine soaked gauze to toe - change every day
-S/P Right 2nd toe amputation secondary to gangrenous changes with exposed bone 05/09/25
# Acute kidney injury - ATN in setting of septic shock
Metabolic Acidosis Resolved
-Patient briefly required CRRT but could not tolerate long
-Ultrasound of the kidneys without obstruction
-Appreciate Renal
-SINDY now resolved
-Cheng discontinued on 05/06
- Creatinine 0.6 today
# Anemia secondary to acute illness. H&H stable
# Thrombocytosis secondary to infection
# Anasarca
# Hypoalbuminemia
# Drug abuse urine drug screen positive for Fentanyl, Benzos, Amphetamines and Methamphetamines
Patient was discharged to a rehab last admission however he stayed there only for 2 days and signed himself out
# Multidrug resistant hypertension-currently blood pressure stable without medicines.
Patient was on Coreg, losartan, clonidine, Aldactone as outpatient.
- Patient back on clonidine, spironolactone, losartan, Coreg.
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 Transferred to [place] . Pt says he was there for 3 months and has weakness of right side and facial droop.
s/p [employer] shunt at [place]
*confirmed cannot get MRI here given shunt
#Vitamin D deficiency-continue replacement
#Chronic back pain
#Morbid obesity with a BMI of 35- Weight loss recommended
#History of nephrolithiasis
#Possible sleep apnea-needs outpatient study as OP.
#ADHD
#Hepatic steatosis per prior imaging-outpatient follow-up
#Active smoker-cessation counseling when able
#DVT prophylaxis-Lovenox
#Full code
Overall prognosis guarded
Discussed with pulmonary today regarding steroid
Total time spent on today's encounter was 52 minutes which included time spent in counseling the patient/family regarding diagnosis and treatment plan as listed above, goals of care, and symptom management. Case was discussed with nursing staff,
specialists, and care coordinators/case management. All labs and imaging personally reviewed by me. Remainder the time spent in detailed review of previous records, lab data, imaging, and other medical provider documentation.
Dispo-Imu
Anticipated Discharge: > 48 hours
Subjective/Interval History
-
Date of Service: May 16, 2025
Feeling continuously albeit slowly improving.
No fever chills.
Denies shortness of breath today.
No chest pain today.
His only complaint today was the right knee pain.
Denies any dysuria. No diarrhea.
He generally feels weak and has not been much out of bed.
Objective Data
-
Labs:
Laboratory Results
05/16/25
04:52
WBC 11.1 H
Hgb 9.7 L
Hct 31.9 L
Plt Count 570 H
Sodium 137
Potassium 4.5
Chloride 97 L
Carbon Dioxide 36 H
BUN 22 H
Creatinine 0.6 L
Glucose 126 H
Calcium 8.3 L
Vital Signs:
Vital Signs
Temp Pulse Resp BP Pulse Ox
98.3 F 72 20 146/74 95
05/16/25 07:22 05/16/25 08:00 05/16/25 08:00 05/16/25 08:00 05/16/25 08:00
I&O
05/15/25 05/16/25 05/17/25
06:59 06:59 06:59
Intake Total 840 / 840 480 / 480
Output Total 2225 / 2225 3550 / 3550
Balance -1385 / -1385 -3070 / -3070
Physical Exam
-
General: Comfortable
Respiratory: Clear to Auscultation (Anterior) and Non Labored Respirations; Negative Accessory Resp Muscle Use
Cardiac: Regular Rhythm and S1/S2
GI: Soft and Nontender
Musculoskeletal: Other (Right knee incision clean)
Neuro: AO x 3
Psych: Calm
Data Reviewed
-
Labs: Labs Reviewed by me
[2025-05-16] MEDS: FLUSH (NSS) 2 FLUSH IV ×3 (10:02→16:07)
[2025-05-16] MEDS: MIRALAX 17 GRAMS PO (10:02)
[2025-05-16] MEDS: MYCOSTATIN ORAL SUSPENSION 5 ML PO ×3 (10:02→21:12)
[2025-05-16] MEDS: DELTASONE 30 MG PO (10:04)
[2025-05-16] MEDS: COREG 25 MG PO ×2 (10:04→21:12)
[2025-05-16] MEDS: SENOKOT 8.6 MG PO (10:04)
[2025-05-16] MEDS: ZYVOX 600 MG PO ×2 (10:04→21:14)
[2025-05-16] MEDS: CATAPRES 0.2 MG PO ×2 (10:04→21:13)
[2025-05-16] MEDS: COLACE 100 MG PO (10:05)
[2025-05-16] MEDS: PROTONIX 40 MG PO (10:05)
[2025-05-16] MEDS: COZAAR 100 MG PO (10:06)
[2025-05-16] MEDS: DAKIN'S SOLUTION 0.125% 1/4 STRENGTH 1 ML TOPICAL (10:06)
[2025-05-16] MEDS: HYDROPHOR 1 APPLIC TOPICAL (10:08)
[2025-05-16] MEDS: DESENEX/MITRAZOL/ZEASORB 1 APPLIC TOPICAL ×2 (10:08→21:14)
--- NOTE | 2025-05-16 10:20 | W.PN.ID1 ---
Date of Service
Date of Service: May 16, 2025
Today's Communication
Continue antibiotics.
Assessment / Plan
Sustained complicated MRSA bacteremia
Pulmonary septic emboli
Cavitary MRSA PNA
Septic right knee; s/p washout
Right thigh and calf necrotizing soft tissue infection
Right second toe infection/gangrene/osteomyelitis
Fever -resolving
Leukocytosis -stable
s/p Hypoxemic respiratory failure, self extubated 05/05
SINDY; resolved
Substance abuse (UDS with fentanyl, amphetamine, methamphetamine, benzodiazepine)
Hx CVA (thalamic bleed) with right hemiplegia
Chronic back pain
Recommendations:
05/01/20 TTE without valvular disease.
05/06/25 JEAN: NO VALVULAR VEGETATION
Sputum cx MRSA
Blood cx's negative x 72 hours.
Continue Serial blood cultures to assess ongoing bacteremia
05/06 R knee fluid: 41,220 WBC, 54% polys, neg crystals.
Synovial cx : MRSA
Appreciate Ortho: 05/07/25 s/p washout of R knee (+PUS). Cx MRSA
Appreciate general surgery 05/07 s/p I+D right thigh and calf. Cx MRSA
05/09 s/p R 2nd toe amputation
Continue Daptomycin IV (d#10).
- Monitor CK closely while on Dapto
Continue linezolid (d#10) for MRSA PNA (daptomycin does not penetrate lung tissue)
- Monitor for bone marrow suppression while on linezolid.
Continue ceftaroline (d#6)
Follow WBC count, platelets, CPK, temperature, O2 requirements.
Overall outlook remains guarded, although clearance of blood cultures is encouraging.
����������������������������������������������������������
Chief Complaint
-: Clinical Sepsis, Pneumonia and Bacteremia
Subjective / Review of Systems
Patient seen and examined. No significant change. Remains afebrile. On 12 L mid flow.
Vital Signs / Physical Exam
Vital Signs
Vital Signs
Temp Pulse Resp BP Pulse Ox
98.3 F 72 20 146/74 97
05/16/25 07:22 05/16/25 08:00 05/16/25 08:00 05/16/25 08:00 05/16/25 09:59
Physical Exam
Constitutional: No Acute Distress, Comfortable, Acutely Ill and Chronically Ill
Cardiovascular: Regular Rate and S1/S2; Negative S3/S4
Pulmonary: Coarse, Non Labored and Other (Mid flow O2 in place.)
Gastrointestinal: Soft, Non Tender and Normal Bowel Sounds
Extremities: Edema
Wound: Other (RLE dressing dry)
Neurological: Awake and Alert
Lines: Other (midline; no erythema)
Objective Data
Lab Data
Lab Results
05/16/25 04:52
05/16/25 04:52
PT 20.0 Sec (11.4-14.6) H 04/30/25 19:46
INR 1.65 04/30/25 19:46
APTT Cancelled 05/04/25 14:45
Estimated Creat Clear > 125 ml/min 05/16/25 04:52
Lactic Acid 1.9 mmol/L (0.7-2.0) 05/01/25 12:18
Total Bilirubin 1.8 mg/dl (0.2-1.3) H 05/01/25 12:18
AST 38 U/L (17-59) 05/01/25 12:18
ALT 17 U/L (0-50) 05/01/25 12:18
Alkaline Phosphatase 71 U/L (38-126) 05/01/25 12:18
Most recent labs reviewed.
Micro Results:
05/13/25 09:45 Blood Culture - Preliminary
Blood/Venous No Growth in 72 hours- Final report to follow
05/15/25 05:39 Blood Culture - Preliminary
Blood/Venous No Growth in 24 hours- Final report to follow
05/12/25 05:34 Blood Culture - Preliminary
Blood/Venous No Growth in 4 days- Final report to follow
05/16/25 04:52 Blood Culture - Pending
Blood/Venous
05/14/25 03:20 Blood Culture - Preliminary
Blood/Venous No Growth in 48 hours- Final report to follow
05/11/25 12:40 Blood Culture - Preliminary
Blood/Venous No Growth in 4 days- Final report to follow
05/09/25 04:01 Blood Culture - Final
Blood/Venous Staph aureus MRSA
Gram Stain - Final
05/08/25 04:21 Blood Culture - Final
Blood/Venous Staph aureus MRSA
Gram Stain - Final
05/07/25 04:55 Blood Culture - Final
Blood/Venous Staph aureus MRSA
Gram Stain - Final
05/06/25 08:16 Blood Culture - Final
Blood/Venous Staph aureus MRSA
Gram Stain - Final
05/07/25 18:35 Wound Culture - Final
Knee - Right Staph aureus MRSA
Gram Stain - Final
05/07/25 18:35 Anaerobic Culture - Final
Knee - Right NO ANAEROBES ISOLATED
05/07/25 18:35 Wound Culture - Final
Leg - Right Staph aureus MRSA
Gram Stain - Final
05/07/25 18:35 Anaerobic Culture - Final
Leg - Right NO ANAEROBES ISOLATED
05/05/25 03:34 Blood Culture - Final
Blood/Venous No Growth - Final Report
05/03/25 04:25 Blood Culture - Final
Blood/Venous Staph aureus MRSA
Gram Stain - Final
05/02/25 03:16 Blood Culture - Final
Blood/Venous Staph aureus MRSA
Gram Stain - Final
05/04/25 03:13 Blood Culture - Final
Blood/Venous No Growth - Final Report
05/06/25 13:19 Body Fluid Culture - Final
Synovial Fluid Staph aureus MRSA
Gram Stain - Final
04/30/25 19:46 Blood Culture - Final
Blood/Venous Staph aureus MRSA
Gram Stain - Final
05/04/25 09:25 Respiratory Culture - Final
Endotracheal Staph aureus MRSA
Gram Stain - Final
05/01/25 17:45 Blood Culture - Final
Blood/Venous Staph aureus MRSA
Gram Stain - Final
04/30/25 19:46 Blood Culture - Final
Blood/Venous Staph aureus MRSA
Gram Stain - Final
05/01/25 01:32 Urine Culture - Final
Urine Yeast
05/01/25 01:17 Blood Parasites Smear - Final
Blood/Venous
04/30/25 23:02 Influenza Types A & B (GIORGIO) - Final
Nasal Swab Negative for Influenza A & B, NAAT
Negative results must be combined with clinical observations
and patient history.
Nucleic Acid Amplification test (NAAT)performed on the
[employer] platform.
Imaging:
05/12/2025 CXR (portable): improved aeration of the right upper lung compared to prior days imaging. Otherwise, extensive diffuse bilateral patchy, nodular and confluent airspace opacities.
05/02/25 CT RLE: Subcutaneous stranding within the soft tissues of the anterior right thigh, and [id number] anterior soft tissues. No drainable abscess is appreciated. Moderate suprapatellar joint effusion, with areas of loculation.
05/01/2025 ECHO (TTE): EF 55%. Normal biventricular size and systolic function. No significant valvular disease. No obvious vegetations.
05/01/2025 CXR (portable): bilateral interstitial and airspace disease noted which may reflect pulmonary edema or pneumonia. Small bilateral pleural effusions noted. Please see full dictation for additional detail.
05/01/2025 Abdominal x-ray. Enteric tube noted in stomach.
05/01/2025 Renal ultrasound: unremarkable renal ultrasound without hydronephrosis, contour deforming solid renal mass or echogenic shadowing foci to suggest renal calculi. Bilateral pleural effusions noted.
05/01/2025 Duplex ultrasound lower extremity: no evidence of DVT in the bilateral lower extremities
04/30/2025 X-ray right foot: soft tissue injury versus ulceration involving the second digit with soft tissue swelling. The cortex of the distal phalanx is indistinct and the possibility of osteomyelitis cannot be excluded. There is soft tissue
swelling of the first digit. No radiographic evidence to suggest osteomyelitis. Please see full dictation for additional detail.
[2025-05-16] MEDS: ALDACTONE 50 MG PO (11:20)
[2025-05-16] MEDS: CUBICIN 130 MG IV (14:37)
[2025-05-16] MEDS: MYCOSTATIN ORAL SUSPENSION PO (14:37)
[2025-05-16] MEDS: TYLENOL ORAL SOLUTION 650 MG PO (14:45)
--- NOTE | 2025-05-16 18:00 | PTCARENOTE ---
Patient midflow oxygen weaned down to 6L from 12L. Pulse ox 94-96%. Lungs diminished. Patient suctioning himself for moderate amounts of thick brown sputum. Medicating patient with pain medication as ordered for severe leg pain. Wound care
completed as ordered.
[2025-05-16] MEDS: LOVENOX 40 MG SC (18:36)
[2025-05-16] MEDS: COLACE PO (21:13)
[2025-05-16] MEDS: SENOKOT PO (21:13)
[2025-05-17] VITALS (9 sets, daily range): BP systolic 118–163; BP diastolic 68–94; BMI 34.0
[2025-05-17] MEDS: TEFLARO 270 MG IV ×3 (01:06→16:50)
--- NOTE | 2025-05-17 02:24 | PTCARENOTE ---
Assumed care of pt after receiving report and bedside introduction. HE is alert and oriented x3. Hx of Rt sided weakness.He reports ongoing rt leg pain from upper thigh to foot. Leg with edema and dressing dry and intact. Pt requests pain
medication PRN . Brody wraps removed at hs. He is resting in bed with meal tray in front of him. He is able to feed self with set up. he is refusing water and mainly drinking dieter javed. Oxygen at 6L lungs coarse throughout, productive moist cough
harsh for brown thick sputum. Pt using oral suction to clear out mouth.
[2025-05-17] MEDS: ROXICODONE 20 MG PO ×4 (02:40→20:59)
[2025-05-17] MEDS: DELTASONE 30 MG PO (08:21)
[2025-05-17] MEDS: ZYVOX 600 MG PO ×2 (08:22→20:52)
[2025-05-17] MEDS: SENOKOT PO ×2 (08:22→20:52)
[2025-05-17] MEDS: ALDACTONE 50 MG PO (08:22)
[2025-05-17] MEDS: PROTONIX 40 MG PO (08:22)
[2025-05-17] MEDS: COREG 25 MG PO ×2 (08:23→20:52)
[2025-05-17] MEDS: COZAAR 100 MG PO (08:23)
[2025-05-17] MEDS: CATAPRES 0.2 MG PO ×2 (08:23→20:52)
[2025-05-17] MEDS: COLACE PO ×2 (08:23→20:52)
[2025-05-17] MEDS: MYCOSTATIN ORAL SUSPENSION 5 ML PO ×4 (08:23→20:53)
[2025-05-17] MEDS: DAKIN'S SOLUTION 0.125% 1/4 STRENGTH 1 ML TOPICAL (08:25)
[2025-05-17] MEDS: HYDROPHOR 1 APPLIC TOPICAL (08:26)
[2025-05-17] MEDS: MIRALAX PO (08:27)
[2025-05-17] MEDS: DESENEX/MITRAZOL/ZEASORB 1 APPLIC TOPICAL ×2 (08:27→20:53)
--- NOTE | 2025-05-17 09:10 | W.PN.HOSP.TC ---
Today's Communication/Plan
-
Continue wean oxygen
Continue with IV antibiotics
Continue with PT OT
Assessment / Plan
Assessment / Plan
Mr. Patrice Mera is a 50 yo man with hx polysubstance abuse, prior CVA (thalamic bleed; right hemiplegia), essential HTN, admitted 04/30 with septic shock 2/2 MRSA bacteremia, SINDY with anion gap metabolic acidosis and hypoxemic respiratory failure.
He is found to have septic joint right knee and development of necrotizing fasciitis.
Venous Dopplers lower extremity-no DVT noted
Echo 05/01/2025-normal biventricular size and systolic function. EF 55 to 60% no vegetation
CT right lower extremity with contrast-subcutaneous stranding within the soft tissues of the anterior thigh and below the knee. No abscess. Moderate suprapatellar joint effusion with areas of loculation. Moderate pelvic free fluid of unknown
etiology. Right inguinal and right iliac chain lymphadenopathy which may be reactive, neoplastic enlargement is not excluded.
Chest x-ray reviewed by me-bilateral infiltrates/edema
LENNY-right LENNY 0.75 and left LENNY 0.83 TBI were obtainable. Doppler waveforms at the ankle bilaterally shows artifacts but remain multiphasic
Renal ultrasound-unremarkable renal ultrasound. Bilateral pleural effusions
CT PE study-no evidence of central PE. Extensive bilateral cavitary nodular opacities compatible with bilateral cavitary pneumonia likely based on septic emboli. Small to moderate bilateral pleural effusions. Gynecomastia. Small amount of
ascites in the right upper quadrant adjacent to the liver.
JEAN 05/06/25
SUMMARY
1. Hyperdynamic left ventricular function.
2. Left ventricular systolic function is greater than 75% by visual assesment.
3. No evidence of any valvular vegetations.
4. Trace mitral valve regurgitation.
CT chest 05/11/2025-worsening severe bilateral cavitary nodules with confluent consolidation most in keeping with pneumonia likely related to septic emboli. Underlying neoplasm not excluded. Small to moderate bilateral pleural effusions progressed
on the left.
#Acute respiratory failure, VDRF
-patient was intubated on admission for multiple reasons in setting of septic shock, pneumonia, septic emboli
-CTA without PE
-s/p self extubation on 05/05
- Without respiratory distress ; currently on mid flow at 5 L which is an improvement
-CT Chest -noted with bilateral cavitary nodules
-Methylprednisolone 40 mg IV daily started on 05/11/25 per pulmonary-getting switched to oral prednisone for 5 days. No wheeze .
-Encouraged to use Acapella or incentive spirometry
#MRSA Bacteremia
Septic Shock - patient was on Levo, Vaso, Epi, Giapreza; remains off pressors
Septic Arthritis Right Knee
Necrotizing Fasciitis right medial thigh and calf
- JEAN 05/06 without e/o vegetation
- Right knee joint aspirate positive for MRSA 05/06
- Exam 05/07 with new concern for necrotizing fasciitis right medial thigh and calf Daily wound care and packing-of the 2 wounds
- Appreciate general surgery and ortho, patient is s/p I&D of necrotizing soft tissue infection and washout right knee on 05/07/25
- 05/07 antibiotics changed to IV Daptomycin, oral Linezolid, Teflaro started on 05/11/2025
- Last positive Blood cultures from 05/09, negative since 05/11/25.
-Blood pressure stable. White count improved.
#Right second toe infection Gangrene
-Appreciate ID and Podiatry
-Antibiotics as above
-Arterial US with multiphasic waveforms
-Wound care Betadine soaked gauze to toe - change every day
-S/P Right 2nd toe amputation secondary to gangrenous changes with exposed bone 05/09/25
# Acute kidney injury - ATN in setting of septic shock
Metabolic Acidosis Resolved
-Patient briefly required CRRT but could not tolerate long
-Ultrasound of the kidneys without obstruction
-Appreciate Renal
-SINDY now resolved
-Cheng discontinued on 05/06
- Creatinine stable
# Anemia secondary to acute illness. H&H stable
# Thrombocytosis secondary to infection
# Anasarca
# Hypoalbuminemia
# Drug abuse urine drug screen positive for Fentanyl, Benzos, Amphetamines and Methamphetamines
Patient was discharged to a rehab last admission however he stayed there only for 2 days and signed himself out
# Multidrug resistant hypertension-currently blood pressure stable without medicines.
Patient was on Coreg, losartan, clonidine, Aldactone as outpatient.
- Patient back on clonidine, spironolactone, losartan, Coreg.
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 Transferred to [facility] . Pt says he was there for 3 months and has weakness of right side and facial droop.
s/p A/C TECH shunt at [facility]
*confirmed cannot get MRI here given shunt
#Vitamin D deficiency-continue replacement
#Chronic back pain
#Morbid obesity with a BMI of 35- Weight loss recommended
#History of nephrolithiasis
#Possible sleep apnea-needs outpatient study as OP.
#ADHD
#Hepatic steatosis per prior imaging-outpatient follow-up
#Active smoker-cessation counseling when able
#DVT prophylaxis-Lovenox
#Full code
DW RN
Dispo-Imu
Anticipated Discharge: > 48 hours
Subjective/Interval History
-
Date of Service: May 17, 2025
Apart from pain and discomfort under the right knee patient voices no specific complaints. His FiO2 is coming down. Denies shortness of breath at rest.
No nausea vomiting. Appetite is good.
No chest pain
Objective Data
-
Vital Signs:
Vital Signs
Temp Pulse Resp BP Pulse Ox
98.1 F 69 18 163/74 96
05/17/25 06:34 05/17/25 08:00 05/17/25 08:00 05/17/25 08:00 05/17/25 08:00
I&O
05/16/25 05/17/25 05/18/25
06:59 06:59 06:59
Intake Total 480 / 480 1934 / 1934
Output Total 3550 / 3550 2500 / 2500
Balance -3070 / -3070 -565 / -565
Physical Exam
-
General: Comfortable
Respiratory: Non Labored Respirations and Accessory Resp Muscle Use; Negative Clear to Auscultation
Cardiac: Regular Rhythm and S1/S2
GI: Soft
Neuro: AO x 3
Psych: Calm; Negative Confused
Data Reviewed
-
Labs: Labs Reviewed by me
--- NOTE | 2025-05-17 09:42 | W.PN.ID1 ---
Date of Service
Date of Service: May 17, 2025
Today's Communication
Continue antibiotics
Assessment / Plan
Sustained (04/30 - 05/09) complicated MRSA bacteremia
Pulmonary septic emboli
Cavitary MRSA PNA
Septic right knee; s/p washout
Right thigh and calf necrotizing soft tissue infection
Right second toe infection/gangrene/osteomyelitis
Fever -resolving
Leukocytosis -stable
s/p Hypoxemic respiratory failure, self extubated 05/05
SINDY; resolved
Substance abuse (UDS with fentanyl, amphetamine, methamphetamine, benzodiazepine)
Hx CVA (thalamic bleed) with right hemiplegia
Chronic back pain
Recommendations:
05/01/20 TTE without valvular disease.
05/06/25 JEAN: NO VALVULAR VEGETATION
Sputum cx MRSA
Blood cx's negative x 72 hours.
Continue Serial blood cultures to assess ongoing bacteremia
05/06 R knee fluid: 41,220 WBC, 54% polys, neg crystals.
Synovial cx : MRSA
Appreciate Ortho: 05/07/25 s/p washout of R knee (+PUS). Cx MRSA
Appreciate general surgery 05/07 s/p I+D right thigh and calf. Cx MRSA
05/09 s/p R 2nd toe amputation
Continue Daptomycin IV (d#11).
- Monitor CK closely while on Dapto
Continue linezolid (d#11) for MRSA PNA (daptomycin does not penetrate lung tissue)
- Monitor closely for bone marrow suppression while on linezolid.
Continue ceftaroline (d#7)
Anticipate triple drug therapy for the next several days, but hopefully will be able to consolidate to drug therapy afterwards.
Follow WBC count, platelets, CPK, temperature, O2 requirements.
Overall outlook remains guarded, although clearance of blood cultures is encouraging.
����������������������������������������������������������
Chief Complaint
-: Clinical Sepsis, Pneumonia and Bacteremia
Subjective / Review of Systems
Patient seen and examined. Reports breathing is comfortable, although notes brownish sputum. No fevers.
Vital Signs / Physical Exam
Vital Signs
Vital Signs
Temp Pulse Resp BP Pulse Ox
98.1 F 69 18 163/74 96
05/17/25 06:34 05/17/25 08:00 05/17/25 08:00 05/17/25 08:00 05/17/25 08:00
Physical Exam
Constitutional: No Acute Distress, Comfortable, Chronically Ill and Non-toxic
Eyes: Sclera Anicteric
Cardiovascular: Regular Rate and S1/S2; Negative S3/S4
Pulmonary: Coarse, Non Labored and Other (Mid flow O2 in place.)
Gastrointestinal: Soft, Non Tender and Normal Bowel Sounds
Extremities: Edema
Wound: Other (RLE dressing dry)
Neurological: Awake and Alert
Lines: Other (midline; no erythema)
Objective Data
Lab Data
Lab Results
05/16/25 04:52
05/16/25 04:52
PT 20.0 Sec (11.4-14.6) H 04/30/25 19:46
INR 1.65 04/30/25 19:46
APTT Cancelled 05/04/25 14:45
Estimated Creat Clear > 125 ml/min 05/16/25 04:52
Lactic Acid 1.9 mmol/L (0.7-2.0) 05/01/25 12:18
Total Bilirubin 1.8 mg/dl (0.2-1.3) H 05/01/25 12:18
AST 38 U/L (17-59) 05/01/25 12:18
ALT 17 U/L (0-50) 05/01/25 12:18
Alkaline Phosphatase 71 U/L (38-126) 05/01/25 12:18
Most recent labs reviewed.
Micro Results:
05/15/25 05:39 Blood Culture - Preliminary
Blood/Venous No Growth in 48 hours- Final report to follow
05/12/25 05:34 Blood Culture - Final
Blood/Venous No Growth - Final Report
05/16/25 04:52 Blood Culture - Preliminary
Blood/Venous No Growth in 24 hours- Final report to follow
05/14/25 03:20 Blood Culture - Preliminary
Blood/Venous No Growth in 72 hours- Final report to follow
05/11/25 12:40 Blood Culture - Final
Blood/Venous No Growth - Final Report
05/13/25 09:45 Blood Culture - Preliminary
Blood/Venous No Growth in 72 hours- Final report to follow
05/09/25 04:01 Blood Culture - Final
Blood/Venous Staph aureus MRSA
Gram Stain - Final
05/08/25 04:21 Blood Culture - Final
Blood/Venous Staph aureus MRSA
Gram Stain - Final
05/07/25 04:55 Blood Culture - Final
Blood/Venous Staph aureus MRSA
Gram Stain - Final
05/06/25 08:16 Blood Culture - Final
Blood/Venous Staph aureus MRSA
Gram Stain - Final
05/07/25 18:35 Wound Culture - Final
Knee - Right Staph aureus MRSA
Gram Stain - Final
05/07/25 18:35 Anaerobic Culture - Final
Knee - Right NO ANAEROBES ISOLATED
05/07/25 18:35 Wound Culture - Final
Leg - Right Staph aureus MRSA
Gram Stain - Final
05/07/25 18:35 Anaerobic Culture - Final
Leg - Right NO ANAEROBES ISOLATED
05/05/25 03:34 Blood Culture - Final
Blood/Venous No Growth - Final Report
05/03/25 04:25 Blood Culture - Final
Blood/Venous Staph aureus MRSA
Gram Stain - Final
05/02/25 03:16 Blood Culture - Final
Blood/Venous Staph aureus MRSA
Gram Stain - Final
05/04/25 03:13 Blood Culture - Final
Blood/Venous No Growth - Final Report
05/06/25 13:19 Body Fluid Culture - Final
Synovial Fluid Staph aureus MRSA
Gram Stain - Final
04/30/25 19:46 Blood Culture - Final
Blood/Venous Staph aureus MRSA
Gram Stain - Final
05/04/25 09:25 Respiratory Culture - Final
Endotracheal Staph aureus MRSA
Gram Stain - Final
05/01/25 17:45 Blood Culture - Final
Blood/Venous Staph aureus MRSA
Gram Stain - Final
04/30/25 19:46 Blood Culture - Final
Blood/Venous Staph aureus MRSA
Gram Stain - Final
05/01/25 01:32 Urine Culture - Final
Urine Yeast
05/01/25 01:17 Blood Parasites Smear - Final
Blood/Venous
04/30/25 23:02 Influenza Types A & B (GIORGIO) - Final
Nasal Swab Negative for Influenza A & B, NAAT
Negative results must be combined with clinical observations
and patient history.
Nucleic Acid Amplification test (NAAT)performed on the
[employer] platform.
Imaging:
05/12/2025 CXR (portable): improved aeration of the right upper lung compared to prior days imaging. Otherwise, extensive diffuse bilateral patchy, nodular and confluent airspace opacities.
05/02/25 CT RLE: Subcutaneous stranding within the soft tissues of the anterior right thigh, and [id number] anterior soft tissues. No drainable abscess is appreciated. Moderate suprapatellar joint effusion, with areas of loculation.
05/01/2025 ECHO (TTE): EF 55%. Normal biventricular size and systolic function. No significant valvular disease. No obvious vegetations.
05/01/2025 CXR (portable): bilateral interstitial and airspace disease noted which may reflect pulmonary edema or pneumonia. Small bilateral pleural effusions noted. Please see full dictation for additional detail.
05/01/2025 Abdominal x-ray. Enteric tube noted in stomach.
05/01/2025 Renal ultrasound: unremarkable renal ultrasound without hydronephrosis, contour deforming solid renal mass or echogenic shadowing foci to suggest renal calculi. Bilateral pleural effusions noted.
05/01/2025 Duplex ultrasound lower extremity: no evidence of DVT in the bilateral lower extremities
04/30/2025 X-ray right foot: soft tissue injury versus ulceration involving the second digit with soft tissue swelling. The cortex of the distal phalanx is indistinct and the possibility of osteomyelitis cannot be excluded. There is soft tissue
swelling of the first digit. No radiographic evidence to suggest osteomyelitis. Please see full dictation for additional detail.
[2025-05-17] MEDS: TYLENOL ORAL SOLUTION 650 MG PO ×2 (12:08→17:43)
[2025-05-17] MEDS: CUBICIN 130 MG IV (14:26)
[2025-05-17] MEDS: LOVENOX 40 MG SC (17:44)
[2025-05-18] VITALS (12 sets, daily range): BP systolic 117–173; BP diastolic 54–79; BMI 34.0
[2025-05-18] MEDS: TEFLARO 270 MG IV ×3 (00:16→16:53)
[2025-05-18] MEDS: ROXICODONE 20 MG PO ×6 (01:03→21:28)
[2025-05-18] MEDS: TYLENOL ORAL SOLUTION 650 MG PO ×2 (01:04→05:33)
--- NOTE | 2025-05-18 05:41 | PTCARENOTE ---
Patient hx right sided weakness from CVA. refusing water, drinks only dieter javed. swallows pills whole w/o issues. refusing some turns, education provided, pt needs reinforcement. pt states he is clean/dry, upon checking pt is soiled with moderate
BM. Angela care done. RLE dressing intact. sacral dx intact. condom cath changed; clear yellow urine. air waffle cushion under lower extremities. pt requesting prn oxycodone for RLE pain. tylenol provided in conjunction with oxycodone for better pain
control. pt on 3L NC; moist productive cough. pt utilizes Mikhail independently. Contact precautions maintained. call finley within reach.
[2025-05-18] MEDS: MIRALAX 17 GRAMS PO (08:48)
[2025-05-18] MEDS: ALDACTONE 50 MG PO (08:48)
[2025-05-18] MEDS: PROTONIX 40 MG PO (08:49)
[2025-05-18] MEDS: COLACE 100 MG PO (08:49)
[2025-05-18] MEDS: DAKIN'S SOLUTION 0.125% 1/4 STRENGTH 473 ML TOPICAL (08:49)
[2025-05-18] MEDS: COREG 25 MG PO ×2 (08:49→20:08)
[2025-05-18] MEDS: ZYVOX 600 MG PO ×2 (08:49→20:10)
[2025-05-18] MEDS: COZAAR 100 MG PO (08:49)
[2025-05-18] MEDS: CATAPRES 0.2 MG PO ×2 (08:49→20:09)
[2025-05-18] MEDS: SENOKOT 8.6 MG PO (08:49)
[2025-05-18] MEDS: DELTASONE 30 MG PO (08:49)
[2025-05-18] MEDS: MYCOSTATIN ORAL SUSPENSION 5 ML PO ×4 (08:50→21:27)
[2025-05-18] MEDS: DESENEX/MITRAZOL/ZEASORB 1 APPLIC TOPICAL ×2 (08:50→20:09)
[2025-05-18] MEDS: HYDROPHOR 1 APPLIC TOPICAL (08:51)
[2025-05-18] MEDS: DRISDOL (VITAMIN D2) 50000 UNITS PO (08:54)
--- NOTE | 2025-05-18 09:25 | W.PN.ID1 ---
Date of Service
Date of Service: May 18, 2025
Today's Communication
Continue antibiotics.
Assessment / Plan
Sustained (04/30 - 05/09) complicated MRSA bacteremia
- Blood cultures clear as of 05/11/2025
Pulmonary septic emboli
Cavitary MRSA PNA
Septic right knee; s/p washout
Right thigh and calf necrotizing soft tissue infection
Right second toe infection/gangrene/osteomyelitis
Fever -resolving
Leukocytosis -stable
s/p Hypoxemic respiratory failure, self extubated 05/05
SINDY; resolved
Substance abuse (UDS with fentanyl, amphetamine, methamphetamine, benzodiazepine)
Hx CVA (thalamic bleed) with right hemiplegia
Chronic back pain
Recommendations:
05/01/20 TTE without valvular disease.
05/06/25 JEAN: NO VALVULAR VEGETATION
Sputum cx MRSA
Blood cx's negative x 72 hours.
Continue Serial blood cultures to assess ongoing bacteremia
05/06 R knee fluid: 41,220 WBC, 54% polys, neg crystals.
Synovial cx : MRSA
Appreciate Ortho: 05/07/25 s/p washout of R knee (+PUS). Cx MRSA
Appreciate general surgery 05/07 s/p I+D right thigh and calf. Cx MRSA
05/09 s/p R 2nd toe amputation
Continue Daptomycin IV (d#12).
- Monitor CK closely while on Dapto
Continue linezolid (d#12) for MRSA PNA (daptomycin does not penetrate lung tissue)
- Monitor closely for bone marrow suppression while on linezolid. Platelet count currently stable.
Continue ceftaroline (d#8)
Anticipate triple drug therapy for the next several days, but hopefully will be able to consolidate to drug therapy afterwards.
Follow WBC count, platelets, CPK, temperature, O2 requirements.
Will need repeat chest CT scan at some point to follow prior abnormalities (infiltrates, septic emboli, cavitary lesions)
Overall outlook remains guarded, although clearance of blood cultures is encouraging.
����������������������������������������������������������
Chief Complaint
-: Clinical Sepsis, Pneumonia and Bacteremia
Subjective / Review of Systems
Review of Systems: No Fever, No Chills, Cough, Sputum Production and No Chest Pain
Vital Signs / Physical Exam
Vital Signs
Vital Signs
Temp Pulse Resp BP Pulse Ox
97.8 F 68 16 145/69 97
05/18/25 07:47 05/18/25 06:00 05/18/25 06:00 05/18/25 08:49 05/18/25 09:03
Physical Exam
Constitutional: No Acute Distress, Comfortable, Chronically Ill and Non-toxic
Eyes: Sclera Anicteric
Cardiovascular: Regular Rate and S1/S2; Negative S3/S4
Pulmonary: Coarse, Non Labored and Other (Mid flow O2 in place.)
Gastrointestinal: Soft, Non Tender and Normal Bowel Sounds
Extremities: Edema and Venous Insufficiency
Wound: Other (RLE dressing dry)
Neurological: Awake and Alert
Lines: Other (midline; no erythema)
Objective Data
Lab Data
Lab Results
05/16/25 04:52
05/16/25 04:52
PT 20.0 Sec (11.4-14.6) H 04/30/25 19:46
INR 1.65 04/30/25 19:46
APTT Cancelled 05/04/25 14:45
Estimated Creat Clear > 125 ml/min 05/16/25 04:52
Lactic Acid 1.9 mmol/L (0.7-2.0) 05/01/25 12:18
Total Bilirubin 1.8 mg/dl (0.2-1.3) H 05/01/25 12:18
AST 38 U/L (17-59) 05/01/25 12:18
ALT 17 U/L (0-50) 05/01/25 12:18
Alkaline Phosphatase 71 U/L (38-126) 05/01/25 12:18
Most recent labs reviewed.
Micro Results:
05/15/25 05:39 Blood Culture - Preliminary
Blood/Venous No Growth in 72 hours- Final report to follow
05/16/25 04:52 Blood Culture - Preliminary
Blood/Venous No Growth in 48 hours- Final report to follow
05/14/25 03:20 Blood Culture - Preliminary
Blood/Venous No Growth in 4 days- Final report to follow
05/13/25 09:45 Blood Culture - Preliminary
Blood/Venous No Growth in 4 days- Final report to follow
05/12/25 05:34 Blood Culture - Final
Blood/Venous No Growth - Final Report
05/11/25 12:40 Blood Culture - Final
Blood/Venous No Growth - Final Report
05/09/25 04:01 Blood Culture - Final
Blood/Venous Staph aureus MRSA
Gram Stain - Final
05/08/25 04:21 Blood Culture - Final
Blood/Venous Staph aureus MRSA
Gram Stain - Final
05/07/25 04:55 Blood Culture - Final
Blood/Venous Staph aureus MRSA
Gram Stain - Final
05/06/25 08:16 Blood Culture - Final
Blood/Venous Staph aureus MRSA
Gram Stain - Final
05/07/25 18:35 Wound Culture - Final
Knee - Right Staph aureus MRSA
Gram Stain - Final
05/07/25 18:35 Anaerobic Culture - Final
Knee - Right NO ANAEROBES ISOLATED
05/07/25 18:35 Wound Culture - Final
Leg - Right Staph aureus MRSA
Gram Stain - Final
05/07/25 18:35 Anaerobic Culture - Final
Leg - Right NO ANAEROBES ISOLATED
05/05/25 03:34 Blood Culture - Final
Blood/Venous No Growth - Final Report
05/03/25 04:25 Blood Culture - Final
Blood/Venous Staph aureus MRSA
Gram Stain - Final
05/02/25 03:16 Blood Culture - Final
Blood/Venous Staph aureus MRSA
Gram Stain - Final
05/04/25 03:13 Blood Culture - Final
Blood/Venous No Growth - Final Report
05/06/25 13:19 Body Fluid Culture - Final
Synovial Fluid Staph aureus MRSA
Gram Stain - Final
04/30/25 19:46 Blood Culture - Final
Blood/Venous Staph aureus MRSA
Gram Stain - Final
05/04/25 09:25 Respiratory Culture - Final
Endotracheal Staph aureus MRSA
Gram Stain - Final
05/01/25 17:45 Blood Culture - Final
Blood/Venous Staph aureus MRSA
Gram Stain - Final
04/30/25 19:46 Blood Culture - Final
Blood/Venous Staph aureus MRSA
Gram Stain - Final
05/01/25 01:32 Urine Culture - Final
Urine Yeast
05/01/25 01:17 Blood Parasites Smear - Final
Blood/Venous
04/30/25 23:02 Influenza Types A & B (GIORGIO) - Final
Nasal Swab Negative for Influenza A & B, NAAT
Negative results must be combined with clinical observations
and patient history.
Nucleic Acid Amplification test (NAAT)performed on the
[employer] platform.
Imaging:
05/12/2025 CXR (portable): improved aeration of the right upper lung compared to prior days imaging. Otherwise, extensive diffuse bilateral patchy, nodular and confluent airspace opacities.
05/02/25 CT RLE: Subcutaneous stranding within the soft tissues of the anterior right thigh, and [id number] anterior soft tissues. No drainable abscess is appreciated. Moderate suprapatellar joint effusion, with areas of loculation.
05/01/2025 ECHO (TTE): EF 55%. Normal biventricular size and systolic function. No significant valvular disease. No obvious vegetations.
05/01/2025 CXR (portable): bilateral interstitial and airspace disease noted which may reflect pulmonary edema or pneumonia. Small bilateral pleural effusions noted. Please see full dictation for additional detail.
05/01/2025 Abdominal x-ray. Enteric tube noted in stomach.
05/01/2025 Renal ultrasound: unremarkable renal ultrasound without hydronephrosis, contour deforming solid renal mass or echogenic shadowing foci to suggest renal calculi. Bilateral pleural effusions noted.
05/01/2025 Duplex ultrasound lower extremity: no evidence of DVT in the bilateral lower extremities
04/30/2025 X-ray right foot: soft tissue injury versus ulceration involving the second digit with soft tissue swelling. The cortex of the distal phalanx is indistinct and the possibility of osteomyelitis cannot be excluded. There is soft tissue
swelling of the first digit. No radiographic evidence to suggest osteomyelitis. Please see full dictation for additional detail.
[2025-05-18] MEDS: CUBICIN 130 MG IV (13:37)
--- NOTE | 2025-05-18 13:57 | W.PN.HOSP.TC ---
Today's Communication/Plan
-
CW Current abx
Tx to med surg
Assessment / Plan
Assessment / Plan
Mr. Patrice Mera is a 50 yo man with hx polysubstance abuse, prior CVA (thalamic bleed; right hemiplegia), essential HTN, admitted 04/30 with septic shock 2/2 MRSA bacteremia, SINDY with anion gap metabolic acidosis and hypoxemic respiratory failure.
He is found to have septic joint right knee and development of necrotizing fasciitis.
Venous Dopplers lower extremity-no DVT noted
Echo 05/01/2025-normal biventricular size and systolic function. EF 55 to 60% no vegetation
CT right lower extremity with contrast-subcutaneous stranding within the soft tissues of the anterior thigh and below the knee. No abscess. Moderate suprapatellar joint effusion with areas of loculation. Moderate pelvic free fluid of unknown
etiology. Right inguinal and right iliac chain lymphadenopathy which may be reactive, neoplastic enlargement is not excluded.
Chest x-ray reviewed by me-bilateral infiltrates/edema
LENNY-right LENNY 0.75 and left LENNY 0.83 TBI were obtainable. Doppler waveforms at the ankle bilaterally shows artifacts but remain multiphasic
Renal ultrasound-unremarkable renal ultrasound. Bilateral pleural effusions
CT PE study-no evidence of central PE. Extensive bilateral cavitary nodular opacities compatible with bilateral cavitary pneumonia likely based on septic emboli. Small to moderate bilateral pleural effusions. Gynecomastia. Small amount of
ascites in the right upper quadrant adjacent to the liver.
JEAN 05/06/25
SUMMARY
1. Hyperdynamic left ventricular function.
2. Left ventricular systolic function is greater than 75% by visual assesment.
3. No evidence of any valvular vegetations.
4. Trace mitral valve regurgitation.
CT chest 05/11/2025-worsening severe bilateral cavitary nodules with confluent consolidation most in keeping with pneumonia likely related to septic emboli. Underlying neoplasm not excluded. Small to moderate bilateral pleural effusions progressed
on the left.
#Acute respiratory failure, VDRF
-patient was intubated on admission for multiple reasons in setting of septic shock, pneumonia, septic emboli
-CTA without PE
-s/p self extubation on 05/05
- Without respiratory distress ; currently on mid flow at 2 L which is an improvement
-CT Chest -noted with bilateral cavitary nodules
-Methylprednisolone 40 mg IV daily started on 05/11/25 per pulmonary-getting switched to oral prednisone for 5 days. No wheeze .
-Encouraged to use Acapella or incentive spirometry
#MRSA Bacteremia
Septic Shock - patient was on Levo, Vaso, Epi, Giapreza; remains off pressors
Septic Arthritis Right Knee
Necrotizing Fasciitis right medial thigh and calf
- JEAN 05/06 without e/o vegetation
- Right knee joint aspirate positive for MRSA 05/06
- Exam 05/07 with new concern for necrotizing fasciitis right medial thigh and calf Daily wound care and packing-of the 2 wounds
- Appreciate general surgery and ortho, patient is s/p I&D of necrotizing soft tissue infection and washout right knee on 05/07/25
- 05/07 antibiotics changed to IV Daptomycin, oral Linezolid, Teflaro started on 05/11/2025
- Last positive Blood cultures from 05/09, negative since 05/11/25.
-Blood pressure stable. White count improved.
#Right second toe infection Gangrene
-Appreciate ID and Podiatry
-Antibiotics as above
-Arterial US with multiphasic waveforms
-Wound care Betadine soaked gauze to toe - change every day
-S/P Right 2nd toe amputation secondary to gangrenous changes with exposed bone 05/09/25
# Acute kidney injury - ATN in setting of septic shock
Metabolic Acidosis Resolved
-Patient briefly required CRRT but could not tolerate long
-Ultrasound of the kidneys without obstruction
-Appreciate Renal
-SINDY now resolved
-Cheng discontinued on 05/06
- Creatinine stable
# Anemia secondary to acute illness. H&H stable
# Thrombocytosis secondary to infection
# Anasarca
# Hypoalbuminemia
# Drug abuse urine drug screen positive for Fentanyl, Benzos, Amphetamines and Methamphetamines
Patient was discharged to a rehab last admission however he stayed there only for 2 days and signed himself out
# Multidrug resistant hypertension-currently blood pressure stable without medicines.
Patient was on Coreg, losartan, clonidine, Aldactone as outpatient.
- Patient back on clonidine, spironolactone, losartan, Coreg.
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 Transferred to [facility] . Pt says he was there for 3 months and has weakness of right side and facial droop.
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
*confirmed cannot get MRI here given shunt
#Vitamin D deficiency-continue replacement
#Chronic back pain
#Morbid obesity with a BMI of 35- Weight loss recommended
#History of nephrolithiasis
#Possible sleep apnea-needs outpatient study as OP.
#ADHD
#Hepatic steatosis per prior imaging-outpatient follow-up
#Active smoker-cessation counseling when able
#DVT prophylaxis-Lovenox
#Full code
DW RN
Dispo-transfer to med surg
Anticipated Discharge: > 48 hours
Subjective/Interval History
-
Date of Service: May 18, 2025
Continued improvement of the breathing and oxygenation. Currently on 2 L.
Objective Data
-
Vital Signs:
Vital Signs
Temp Pulse Resp BP Pulse Ox
98.0 F 68 16 145/69 97
05/18/25 11:59 05/18/25 06:00 05/18/25 06:00 05/18/25 08:49 05/18/25 09:03
I&O
05/17/25 05/18/25 05/19/25
06:59 06:59 06:59
Intake Total 1934 / 1934 1869 / 1869
Output Total 2500 / 2500 3400 / 3400 400 / 400
Balance -565 / -565 -1530 / -1530 -400 / -400
Physical Exam
-
General: Comfortable
Respiratory: Non Labored Respirations; Negative Accessory Resp Muscle Use
Cardiac: Regular Rhythm and S1/S2; Negative Tachycardic
GI: Soft
Neuro: AO x 3
Psych: Calm; Negative Confused
[2025-05-18] MEDS: LOVENOX 40 MG SC (17:01)
[2025-05-18] MEDS: SENOKOT PO (20:09)
[2025-05-18] MEDS: COLACE PO (20:09)
[2025-05-19] VITALS: BP 122/61
[2025-05-19] MEDS: TEFLARO 270 MG IV ×4 (00:04→23:37)
[2025-05-19] MEDS: ROXICODONE 20 MG PO ×6 (01:30→23:37)
[2025-05-19 05:52] VITALS: BMI 33.7
[2025-05-19 07:45] LABS: Hematocrit 32.2 % (39.0-52.0); Hemoglobin 9.9 g/dL (13.0-18.0); Mean Corp Hgb Conc. 30.7 g/dL (33.0-37.0); Mean Corpuscular Volume 88.2 fL (80.0-94.0); Platelet Count 448 10^3/uL (130-400); Red Cell Dist. Width 17.0 % (11.5-14.5)
[2025-05-19 08:00] VITALS: BP 128/103
--- NOTE | 2025-05-19 08:52 | W.PN.ID1 ---
Date of Service
Date of Service: May 19, 2025
Today's Communication
Continue antibiotics.
Assessment / Plan
Sustained (04/30 - 05/09) complicated MRSA bacteremia
- Blood cultures clear as of 05/11/2025
Pulmonary septic emboli
Cavitary MRSA PNA
Septic right knee; s/p washout
Right thigh and calf necrotizing soft tissue infection
Right second toe infection/gangrene/osteomyelitis
Fever -resolving
Leukocytosis -stable
s/p Hypoxemic respiratory failure, self extubated 05/05
SINDY; resolved
Substance abuse (UDS with fentanyl, amphetamine, methamphetamine, benzodiazepine)
Hx CVA (thalamic bleed) with right hemiplegia
Chronic back pain
Recommendations:
05/01/20 TTE without valvular disease.
05/06/25 JEAN: NO VALVULAR VEGETATION
Sputum cx MRSA
Blood cx's negative x 72 hours.
Continue Serial blood cultures to assess ongoing bacteremia
05/06 R knee fluid: 41,220 WBC, 54% polys, neg crystals.
Synovial cx : MRSA
Appreciate Ortho: 05/07/25 s/p washout of R knee (+PUS). Cx MRSA
Appreciate general surgery 05/07 s/p I+D right thigh and calf. Cx MRSA
05/09 s/p R 2nd toe amputation
Continue Daptomycin IV (d#13).
- Monitor CK closely while on Dapto
Continue linezolid (d#13) for MRSA PNA (daptomycin does not penetrate lung tissue)
- Monitor closely for bone marrow suppression while on linezolid. Hb and Platelet count currently stable.
Continue ceftaroline (d#9)
Follow WBC count, platelets, CPK, temperature, O2 requirements.
Will need repeat chest CT scan at some point to follow prior abnormalities (infiltrates, septic emboli, cavitary lesions)
����������������������������������������������������������
Chief Complaint
-: Clinical Sepsis, Pneumonia and Bacteremia
Subjective / Review of Systems
Patient seen and examined. Reports feeling well. Denies shortness of breath. Reports respiratory status is good. Still with cough and occasional sputum, but denies hemoptysis.
Review of Systems: No Fever and No Chills
Vital Signs / Physical Exam
Vital Signs
Vital Signs
Temp Pulse Resp BP Pulse Ox
97.9 F 71 17 122/61 94
05/18/25 23:00 05/19/25 06:00 05/19/25 06:00 05/19/25 00:00 05/19/25 06:00
Physical Exam
Constitutional: No Acute Distress, Comfortable, Chronically Ill and Non-toxic
Eyes: Sclera Anicteric
Cardiovascular: Regular Rate and S1/S2; Negative S3/S4
Pulmonary: Coarse and Non Labored
Gastrointestinal: Soft, Non Tender and Normal Bowel Sounds
Extremities: Edema and Venous Insufficiency
Wound: Other (RLE dressing dry; no strikethrough.)
Neurological: Awake and Alert
Lines: Other (midline; no erythema)
Objective Data
Lab Data
Lab Results
05/19/25 05:47
05/16/25 04:52
PT 20.0 Sec (11.4-14.6) H 04/30/25 19:46
INR 1.65 04/30/25 19:46
APTT Cancelled 05/04/25 14:45
Estimated Creat Clear > 125 ml/min 05/16/25 04:52
Lactic Acid 1.9 mmol/L (0.7-2.0) 05/01/25 12:18
Total Bilirubin 1.8 mg/dl (0.2-1.3) H 05/01/25 12:18
AST 38 U/L (17-59) 05/01/25 12:18
ALT 17 U/L (0-50) 05/01/25 12:18
Alkaline Phosphatase 71 U/L (38-126) 05/01/25 12:18
Most recent labs reviewed.
Micro Results:
05/15/25 05:39 Blood Culture - Preliminary
Blood/Venous No Growth in 4 days- Final report to follow
05/16/25 04:52 Blood Culture - Preliminary
Blood/Venous No Growth in 72 hours- Final report to follow
05/14/25 03:20 Blood Culture - Final
Blood/Venous No Growth - Final Report
05/13/25 09:45 Blood Culture - Final
Blood/Venous No Growth - Final Report
05/12/25 05:34 Blood Culture - Final
Blood/Venous No Growth - Final Report
05/11/25 12:40 Blood Culture - Final
Blood/Venous No Growth - Final Report
05/09/25 04:01 Blood Culture - Final
Blood/Venous Staph aureus MRSA
Gram Stain - Final
05/08/25 04:21 Blood Culture - Final
Blood/Venous Staph aureus MRSA
Gram Stain - Final
05/07/25 04:55 Blood Culture - Final
Blood/Venous Staph aureus MRSA
Gram Stain - Final
05/06/25 08:16 Blood Culture - Final
Blood/Venous Staph aureus MRSA
Gram Stain - Final
05/07/25 18:35 Wound Culture - Final
Knee - Right Staph aureus MRSA
Gram Stain - Final
05/07/25 18:35 Anaerobic Culture - Final
Knee - Right NO ANAEROBES ISOLATED
05/07/25 18:35 Wound Culture - Final
Leg - Right Staph aureus MRSA
Gram Stain - Final
05/07/25 18:35 Anaerobic Culture - Final
Leg - Right NO ANAEROBES ISOLATED
05/05/25 03:34 Blood Culture - Final
Blood/Venous No Growth - Final Report
05/03/25 04:25 Blood Culture - Final
Blood/Venous Staph aureus MRSA
Gram Stain - Final
05/02/25 03:16 Blood Culture - Final
Blood/Venous Staph aureus MRSA
Gram Stain - Final
05/04/25 03:13 Blood Culture - Final
Blood/Venous No Growth - Final Report
05/06/25 13:19 Body Fluid Culture - Final
Synovial Fluid Staph aureus MRSA
Gram Stain - Final
04/30/25 19:46 Blood Culture - Final
Blood/Venous Staph aureus MRSA
Gram Stain - Final
05/04/25 09:25 Respiratory Culture - Final
Endotracheal Staph aureus MRSA
Gram Stain - Final
05/01/25 17:45 Blood Culture - Final
Blood/Venous Staph aureus MRSA
Gram Stain - Final
04/30/25 19:46 Blood Culture - Final
Blood/Venous Staph aureus MRSA
Gram Stain - Final
05/01/25 01:32 Urine Culture - Final
Urine Yeast
05/01/25 01:17 Blood Parasites Smear - Final
Blood/Venous
04/30/25 23:02 Influenza Types A & B (GIORGIO) - Final
Nasal Swab Negative for Influenza A & B, NAAT
Negative results must be combined with clinical observations
and patient history.
Nucleic Acid Amplification test (NAAT)performed on the
[employer] platform.
Imaging:
05/16/2025 CXR (portable): extensive heterogeneous opacities bilaterally. A 6.2 cm cavitary right lower lobe lesion again noted. No pneumothorax or pleural effusion. Mild cardiac enlargement.
05/12/2025 CXR (portable): improved aeration of the right upper lung compared to prior days imaging. Otherwise, extensive diffuse bilateral patchy, nodular and confluent airspace opacities.
05/02/25 CT RLE: Subcutaneous stranding within the soft tissues of the anterior right thigh, and [id number] anterior soft tissues. No drainable abscess is appreciated. Moderate suprapatellar joint effusion, with areas of loculation.
05/01/2025 ECHO (TTE): EF 55%. Normal biventricular size and systolic function. No significant valvular disease. No obvious vegetations.
05/01/2025 CXR (portable): bilateral interstitial and airspace disease noted which may reflect pulmonary edema or pneumonia. Small bilateral pleural effusions noted. Please see full dictation for additional detail.
05/01/2025 Abdominal x-ray. Enteric tube noted in stomach.
05/01/2025 Renal ultrasound: unremarkable renal ultrasound without hydronephrosis, contour deforming solid renal mass or echogenic shadowing foci to suggest renal calculi. Bilateral pleural effusions noted.
05/01/2025 Duplex ultrasound lower extremity: no evidence of DVT in the bilateral lower extremities
04/30/2025 X-ray right foot: soft tissue injury versus ulceration involving the second digit with soft tissue swelling. The cortex of the distal phalanx is indistinct and the possibility of osteomyelitis cannot be excluded. There is soft tissue
swelling of the first digit. No radiographic evidence to suggest osteomyelitis. Please see full dictation for additional detail.
--- NOTE | 2025-05-19 09:58 | W.PN.HOSP.TC ---
Today's Communication/Plan
-
Await transfer to [facility]
Continue with IV antibiotics per ID
Continue with PT OT eval
DC planning
Assessment / Plan
Assessment / Plan
Mr. Patrice Mera is a 50 yo man with hx polysubstance abuse, prior CVA (thalamic bleed; right hemiplegia), essential HTN, admitted 04/30 with septic shock 2/2 MRSA bacteremia, SINDY with anion gap metabolic acidosis and hypoxemic respiratory failure.
He is found to have septic joint right knee and development of necrotizing fasciitis.
Venous Dopplers lower extremity-no DVT noted
Echo 05/01/2025-normal biventricular size and systolic function. EF 55 to 60% no vegetation
CT right lower extremity with contrast-subcutaneous stranding within the soft tissues of the anterior thigh and below the knee. No abscess. Moderate suprapatellar joint effusion with areas of loculation. Moderate pelvic free fluid of unknown
etiology. Right inguinal and right iliac chain lymphadenopathy which may be reactive, neoplastic enlargement is not excluded.
Chest x-ray reviewed by me-bilateral infiltrates/edema
LENNY-right LENNY 0.75 and left LENNY 0.83 TBI were obtainable. Doppler waveforms at the ankle bilaterally shows artifacts but remain multiphasic
Renal ultrasound-unremarkable renal ultrasound. Bilateral pleural effusions
CT PE study-no evidence of central PE. Extensive bilateral cavitary nodular opacities compatible with bilateral cavitary pneumonia likely based on septic emboli. Small to moderate bilateral pleural effusions. Gynecomastia. Small amount of
ascites in the right upper quadrant adjacent to the liver.
JEAN 05/06/25
SUMMARY
1. Hyperdynamic left ventricular function.
2. Left ventricular systolic function is greater than 75% by visual assesment.
3. No evidence of any valvular vegetations.
4. Trace mitral valve regurgitation.
CT chest 05/11/2025-worsening severe bilateral cavitary nodules with confluent consolidation most in keeping with pneumonia likely related to septic emboli. Underlying neoplasm not excluded. Small to moderate bilateral pleural effusions progressed
on the left.
#Acute respiratory failure, VDRF
-patient was intubated on admission for multiple reasons in setting of septic shock, pneumonia, septic emboli
-CTA without PE
-s/p self extubation on 05/05
- Without respiratory distress ; currently on at 1 L of FiO2
-CT Chest -noted with bilateral cavitary nodules
-Methylprednisolone 40 mg IV daily started on 05/11/25 per pulmonary-getting switched to oral prednisone for 5 days-last day 05/20.
-Encouraged to use Acapella or incentive spirometry
#MRSA Bacteremia
Septic Shock - patient was on Levo, Vaso, Epi, Giapreza; remains off pressors
Septic Arthritis Right Knee
Necrotizing Fasciitis right medial thigh and calf
- JEAN 05/06 without e/o vegetation
- Right knee joint aspirate positive for MRSA 05/06
- Exam 05/07 with new concern for necrotizing fasciitis right medial thigh and calf Daily wound care and packing-of the 2 wounds
- Appreciate general surgery and ortho, patient is s/p I&D of necrotizing soft tissue infection and washout right knee on 05/07/25
- 05/07 antibiotics changed to IV Daptomycin, oral Linezolid, Teflaro started on 05/11/2025
- Last positive Blood cultures from 05/09, negative since 05/11/25.
-Blood pressure stable. White count improved.
#Right second toe infection Gangrene
-Appreciate ID and Podiatry
-Antibiotics as above
-Arterial US with multiphasic waveforms
-Wound care Betadine soaked gauze to toe - change every day
-S/P Right 2nd toe amputation secondary to gangrenous changes with exposed bone 05/09/25
# Acute kidney injury - ATN in setting of septic shock
Metabolic Acidosis Resolved
-Patient briefly required CRRT but could not tolerate long
-Ultrasound of the kidneys without obstruction
-Appreciate Renal
-SINDY now resolved
-Cheng discontinued on 05/06
- Creatinine stable
# Anemia secondary to acute illness. H&H stable
# Thrombocytosis secondary to infection
# Anasarca
# Hypoalbuminemia
# Drug abuse urine drug screen positive for Fentanyl, Benzos, Amphetamines and Methamphetamines
Patient was discharged to a rehab last admission however he stayed there only for 2 days and signed himself out
# Multidrug resistant hypertension-currently blood pressure stable without medicines.
Patient was on Coreg, losartan, clonidine, Aldactone as outpatient.
- Patient back on clonidine, spironolactone, losartan, Coreg.
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 Transferred to [place] . Pt says he was there for 3 months and has weakness of right side and facial droop.
s/p [employer] shunt at [place]
*confirmed cannot get MRI here given shunt
#Vitamin D deficiency-continue replacement
#Chronic back pain
#Morbid obesity with a BMI of 35- Weight loss recommended
#History of nephrolithiasis
#Possible sleep apnea-needs outpatient study as OP.
#ADHD
#Hepatic steatosis per prior imaging-outpatient follow-up
#Active smoker-cessation counseling when able
#DVT prophylaxis-Lovenox
#Full code
Dispo- med surg
Anticipated Discharge: > 48 hours
Subjective/Interval History
-
Date of Service: May 19, 2025
Patient feels improved. Denies shortness of breath at rest. Currently on 1 L of oxygen.
Feels improved with the right knee pain and thinks he could participate with physical therapy.
Tolerating diet.
Objective Data
-
Labs:
Laboratory Results
05/19/25
05:47
WBC 10.8
Hgb 9.9 L
Hct 32.2 L
Plt Count 448 H D
Vital Signs:
Vital Signs
Temp Pulse Resp BP Pulse Ox
97.9 F 71 17 122/61 94
05/18/25 23:00 05/19/25 06:00 05/19/25 06:00 05/19/25 00:00 05/19/25 06:00
I&O
05/18/25 05/19/25 05/20/25
06:59 06:59 06:59
Intake Total 1870 / 1870 480 / 480
Output Total 3400 / 3400 2350 / 2350
Balance -1530 / -1530 -1870 / -1870
Physical Exam
-
General: Comfortable
Respiratory: Clear to Auscultation (Anterior) and Non Labored Respirations; Negative Accessory Resp Muscle Use
Cardiac: Regular Rhythm and S1/S2; Negative Tachycardic
GI: Soft
Neuro: AO x 3
Data Reviewed
-
Labs: Labs Reviewed by me
[2025-05-19 10:01] VITALS: BP 142/72
[2025-05-19] MEDS: TYLENOL ORAL SOLUTION 650 MG PO ×2 (10:01→14:05)
[2025-05-19] MEDS: DELTASONE 30 MG PO (10:02)
[2025-05-19] MEDS: MYCOSTATIN ORAL SUSPENSION 5 ML PO ×4 (10:02→21:03)
[2025-05-19] MEDS: ALDACTONE 50 MG PO (10:03)
[2025-05-19] MEDS: COZAAR 100 MG PO (10:03)
[2025-05-19] MEDS: COLACE 100 MG PO (10:03)
[2025-05-19] MEDS: COREG 25 MG PO ×2 (10:03→21:04)
[2025-05-19] MEDS: CATAPRES 0.2 MG PO ×2 (10:03→21:03)
[2025-05-19] MEDS: MIRALAX PO (10:04)
[2025-05-19] MEDS: PROTONIX 40 MG PO (10:04)
[2025-05-19] MEDS: ZYVOX 600 MG PO ×2 (10:04→21:04)
[2025-05-19] MEDS: SENOKOT PO ×2 (10:04→21:08)
[2025-05-19] MEDS: FLUSH (NSS) 2 FLUSH IV ×2 (10:12→14:06)
[2025-05-19] MEDS: DESENEX/MITRAZOL/ZEASORB 1 APPLIC TOPICAL ×2 (12:11→21:05)
[2025-05-19] MEDS: DAKIN'S SOLUTION 0.125% 1/4 STRENGTH 1 ML TOPICAL (12:11)
[2025-05-19] MEDS: HYDROPHOR 1 APPLIC TOPICAL (12:12)
[2025-05-19] MEDS: CUBICIN 130 MG IV (14:05)
--- NOTE | 2025-05-19 14:56 | PTCARENOTE ---
Wound care completed. Patient premedicated with oxycodone as ordered. Pulse ox on 1L o2 94%. Lungs coarse and diminished. Patient suctioning himself independently for moderate amounts of thick brown sputum. VS stable. Patient will be
transferred to [facility] today.
--- NOTE | 2025-05-19 16:10 | PTCARENOTE ---
Patient transferred in bed to [facility] room 324.
--- NOTE | 2025-05-19 16:14 | PTCARENOTE ---
received pt from IMU to room 324, oriented to room, VSS stable, on 1L O2, suction in place for pt to self-use- PRN, call finley within reach, bed in lowest position. Follow care plan
[2025-05-19] MEDS: LOVENOX 40 MG SC (17:07)
--- NOTE | 2025-05-19 17:21 | CM ---
Plan is skilled placement at [facility], needs Auth.
Plan; Skilled placement.
[2025-05-19] MEDS: COLACE PO (21:08)
[2025-05-19 23:40] VITALS: BP 128/71
[2025-05-20] MEDS: ROXICODONE 20 MG PO ×5 (03:12→22:17)
[2025-05-20 06:00] VITALS: BMI 32.8
[2025-05-20 07:41] VITALS: BP 157/89
[2025-05-20] MEDS: ZYVOX 600 MG PO (09:58)
[2025-05-20] MEDS: DELTASONE 30 MG PO (09:58)
[2025-05-20] MEDS: PROTONIX 40 MG PO (09:58)
[2025-05-20] MEDS: COZAAR 100 MG PO (09:59)
[2025-05-20] MEDS: CATAPRES 0.2 MG PO ×2 (09:59→20:10)
[2025-05-20] MEDS: SENOKOT 8.6 MG PO (09:59)
[2025-05-20] MEDS: COLACE PO ×3 (09:59→20:10)
[2025-05-20] MEDS: ALDACTONE 50 MG PO (10:00)
[2025-05-20] MEDS: COREG 25 MG PO ×2 (10:01→20:10)
[2025-05-20] MEDS: MIRALAX PO ×2 (10:01→10:12)
[2025-05-20] MEDS: DAKIN'S SOLUTION 0.125% 1/4 STRENGTH 473 ML TOPICAL (10:01)
[2025-05-20] MEDS: MYCOSTATIN ORAL SUSPENSION 5 ML PO ×4 (10:01→22:17)
[2025-05-20] MEDS: DESENEX/MITRAZOL/ZEASORB 1 APPLIC TOPICAL ×2 (10:02→20:11)
[2025-05-20] MEDS: HYDROPHOR 1 APPLIC TOPICAL (10:03)
[2025-05-20] MEDS: TEFLARO 270 MG IV ×3 (10:04→23:56)
[2025-05-20] MEDS: FLUSH (NSS) 1 FLUSH IV ×2 (10:05→14:15)
[2025-05-20] MEDS: ROXICODONE 10 MG PO (12:17)
--- NOTE | 2025-05-20 13:25 | W.PN.HOSP.TC ---
Today's Communication/Plan
-
Continue current IV abx
DC planning
Assessment / Plan
Assessment / Plan
Mr. Patrice Mera is a 50 yo man with hx polysubstance abuse, prior CVA (thalamic bleed; right hemiplegia), essential HTN, admitted 04/30 with septic shock 2/2 MRSA bacteremia, SINDY with anion gap metabolic acidosis and hypoxemic respiratory failure.
He is found to have septic joint right knee and development of necrotizing fasciitis.
Venous Dopplers lower extremity-no DVT noted
Echo 05/01/2025-normal biventricular size and systolic function. EF 55 to 60% no vegetation
CT right lower extremity with contrast-subcutaneous stranding within the soft tissues of the anterior thigh and below the knee. No abscess. Moderate suprapatellar joint effusion with areas of loculation. Moderate pelvic free fluid of unknown
etiology. Right inguinal and right iliac chain lymphadenopathy which may be reactive, neoplastic enlargement is not excluded.
Chest x-ray reviewed by me-bilateral infiltrates/edema
LENNY-right LENNY 0.75 and left LENNY 0.83 TBI were obtainable. Doppler waveforms at the ankle bilaterally shows artifacts but remain multiphasic
Renal ultrasound-unremarkable renal ultrasound. Bilateral pleural effusions
CT PE study-no evidence of central PE. Extensive bilateral cavitary nodular opacities compatible with bilateral cavitary pneumonia likely based on septic emboli. Small to moderate bilateral pleural effusions. Gynecomastia. Small amount of
ascites in the right upper quadrant adjacent to the liver.
JEAN 05/06/25
SUMMARY
1. Hyperdynamic left ventricular function.
2. Left ventricular systolic function is greater than 75% by visual assesment.
3. No evidence of any valvular vegetations.
4. Trace mitral valve regurgitation.
CT chest 05/11/2025-worsening severe bilateral cavitary nodules with confluent consolidation most in keeping with pneumonia likely related to septic emboli. Underlying neoplasm not excluded. Small to moderate bilateral pleural effusions progressed
on the left.
#Acute respiratory failure, VDRF
-patient was intubated on admission for multiple reasons in setting of septic shock, pneumonia, septic emboli
-CTA without PE
-s/p self extubation on 05/05
- Without respiratory distress ; currently on at 1 L of FiO2
-CT Chest -noted with bilateral cavitary nodules
-Methylprednisolone 40 mg IV daily started on 05/11/25 per pulmonary-getting switched to oral prednisone for 5 days-last day 05/20.
-Encouraged to use Acapella or incentive spirometry
#MRSA Bacteremia
Septic Shock - patient was on Levo, Vaso, Epi, Giapreza; remains off pressors
Septic Arthritis Right Knee
Necrotizing Fasciitis right medial thigh and calf
- JEAN 05/06 without e/o vegetation
- Right knee joint aspirate positive for MRSA 05/06
- Exam 05/07 with new concern for necrotizing fasciitis right medial thigh and calf Daily wound care and packing-of the 2 wounds
- Appreciate general surgery and ortho, patient is s/p I&D of necrotizing soft tissue infection and washout right knee on 05/07/25
- 05/07 antibiotics changed to IV Daptomycin, oral Linezolid, Teflaro started on 05/11/2025
- Last positive Blood cultures from 05/09, negative since 05/11/25.
-Blood pressure stable. White count improved.
#Right second toe infection Gangrene
-Appreciate ID and Podiatry
-Antibiotics as above
-Arterial US with multiphasic waveforms
-Wound care Betadine soaked gauze to toe - change every day
-S/P Right 2nd toe amputation secondary to gangrenous changes with exposed bone 05/09/25
# Acute kidney injury - ATN in setting of septic shock
Metabolic Acidosis Resolved
-Patient briefly required CRRT but could not tolerate long
-Ultrasound of the kidneys without obstruction
-Appreciate Renal
-SINDY now resolved
-Cheng discontinued on 05/06
- Creatinine stable
# Anemia secondary to acute illness. H&H stable
# Thrombocytosis secondary to infection
# Anasarca
# Hypoalbuminemia
# Drug abuse urine drug screen positive for Fentanyl, Benzos, Amphetamines and Methamphetamines
Patient was discharged to a rehab last admission however he stayed there only for 2 days and signed himself out
# Multidrug resistant hypertension-currently blood pressure stable without medicines.
Patient was on Coreg, losartan, clonidine, Aldactone as outpatient.
- Patient back on clonidine, spironolactone, losartan, Coreg.
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 Transferred to [place] . Pt says he was there for 3 months and has weakness of right side and facial droop.
s/p BOTTLE [employer] shunt at [place]
*confirmed cannot get MRI here given shunt
#Vitamin D deficiency-continue replacement
#Chronic back pain
#Morbid obesity with a BMI of 35- Weight loss recommended
#History of nephrolithiasis
#Possible sleep apnea-needs outpatient study as OP.
#ADHD
#Hepatic steatosis per prior imaging-outpatient follow-up
#Active smoker-cessation counseling when able
#DVT prophylaxis-Lovenox
#Full code
DC when ok from ID standpoint
Would need rehab on DC
Anticipated Discharge: Within 24 hours
Subjective/Interval History
-
Date of Service: May 20, 2025
No overnight events.
Feels continuously improved.
He is a bit upbeat in participating with physical therapy today. He does not want to go to the prior rehab he was discharged today.
Objective Data
-
Vital Signs:
Vital Signs
Temp Pulse Resp BP Pulse Ox
98 F 85 21 147/79 98
05/20/25 07:41 05/20/25 10:01 05/20/25 07:41 05/20/25 10:01 05/20/25 07:41
I&O
05/19/25 05/20/25 05/21/25
06:59 06:59 06:59
Intake Total 480 / 480 1600 / 1600
Output Total 2350 / 2350 2940 / 2940
Balance -1870 / -1870 -1340 / -1340
Physical Exam
-
General: Comfortable
Respiratory: Non Labored Respirations; Negative Accessory Resp Muscle Use
Cardiac: Regular Rhythm and S1/S2
Neuro: AO x 3
Psych: Calm; Negative Confused
Data Reviewed
-
Labs: Labs Reviewed by me
[2025-05-20 13:53] VITALS: BP 141/66; BP 153/96; PULSE 86; PULSE 87; PULSE 89; O2SAT 90
[2025-05-20] MEDS: CUBICIN 130 MG IV (14:15)
[2025-05-20 15:22] VITALS: BP 139/61
--- NOTE | 2025-05-20 16:18 | W.PN.ID1 ---
Date of Service
Date of Service: May 20, 2025
Today's Communication
Continue daptomycin and ceftaroline. Discontinue for the linezolid.
Assessment / Plan
Sustained (04/30 - 05/09) complicated MRSA bacteremia
- Blood cultures clear as of 05/11/2025
Pulmonary septic emboli
Cavitary MRSA PNA
Septic right knee; s/p washout
Right thigh and calf necrotizing soft tissue infection
Right second toe infection/gangrene/osteomyelitis
Fever -resolving
Leukocytosis -stable
s/p Hypoxemic respiratory failure, self extubated 05/05
SINDY; resolved
Substance abuse (UDS with fentanyl, amphetamine, methamphetamine, benzodiazepine)
Hx CVA (thalamic bleed) with right hemiplegia
Chronic back pain
Recommendations:
05/01/20 TTE without valvular disease.
05/06/25 JEAN: NO VALVULAR VEGETATION
Sputum cx MRSA
Blood cx's negative
05/06 R knee fluid: 41,220 WBC, 54% polys, neg crystals.
Synovial cx : MRSA
Appreciate Ortho: 05/07/25 s/p washout of R knee (+PUS). Cx MRSA
Appreciate general surgery 05/07 s/p I+D right thigh and calf. Cx MRSA
05/09 s/p R 2nd toe amputation
D/C further linezolid.
Continue Daptomycin IV (d#14).
- Monitor CK closely while on Dapto
Continue ceftaroline (d#10)
Follow WBC count, platelets, CPK, temperature, O2 requirements.
Will need repeat chest CT scan at some point (7-14 days) to follow prior abnormalities (infiltrates, septic emboli, cavitary lesions)
����������������������������������������������������������
Chief Complaint
-: Clinical Sepsis, Pneumonia and Bacteremia
Subjective / Review of Systems
Review of Systems: No Fever and No Chills
Vital Signs / Physical Exam
Vital Signs
Vital Signs
Temp Pulse Resp BP Pulse Ox
98.3 F 82 19 139/61 92
05/20/25 15:22 05/20/25 15:22 05/20/25 15:22 05/20/25 15:22 05/20/25 15:22
Physical Exam
Constitutional: No Acute Distress, Comfortable, Chronically Ill and Non-toxic
Eyes: Sclera Anicteric
Cardiovascular: Regular Rate and S1/S2; Negative S3/S4
Pulmonary: Coarse and Non Labored; Negative Rhonchi
Gastrointestinal: Soft, Non Tender and Normal Bowel Sounds
Extremities: Edema and Venous Insufficiency
Neurological: Awake and Alert
Lines: Other (midline; no erythema)
Objective Data
Lab Data
Lab Results
05/19/25 05:47
05/16/25 04:52
PT 20.0 Sec (11.4-14.6) H 04/30/25 19:46
INR 1.65 04/30/25 19:46
APTT Cancelled 05/04/25 14:45
Estimated Creat Clear > 125 ml/min 05/16/25 04:52
Lactic Acid 1.9 mmol/L (0.7-2.0) 05/01/25 12:18
Total Bilirubin 1.8 mg/dl (0.2-1.3) H 05/01/25 12:18
AST 38 U/L (17-59) 05/01/25 12:18
ALT 17 U/L (0-50) 05/01/25 12:18
Alkaline Phosphatase 71 U/L (38-126) 05/01/25 12:18
Most recent labs reviewed.
Micro Results:
05/15/25 05:39 Blood Culture - Final
Blood/Venous No Growth - Final Report
05/16/25 04:52 Blood Culture - Preliminary
Blood/Venous No Growth in 4 days- Final report to follow
05/14/25 03:20 Blood Culture - Final
Blood/Venous No Growth - Final Report
05/13/25 09:45 Blood Culture - Final
Blood/Venous No Growth - Final Report
05/12/25 05:34 Blood Culture - Final
Blood/Venous No Growth - Final Report
05/11/25 12:40 Blood Culture - Final
Blood/Venous No Growth - Final Report
05/09/25 04:01 Blood Culture - Final
Blood/Venous Staph aureus MRSA
Gram Stain - Final
05/08/25 04:21 Blood Culture - Final
Blood/Venous Staph aureus MRSA
Gram Stain - Final
05/07/25 04:55 Blood Culture - Final
Blood/Venous Staph aureus MRSA
Gram Stain - Final
05/06/25 08:16 Blood Culture - Final
Blood/Venous Staph aureus MRSA
Gram Stain - Final
05/07/25 18:35 Wound Culture - Final
Knee - Right Staph aureus MRSA
Gram Stain - Final
05/07/25 18:35 Anaerobic Culture - Final
Knee - Right NO ANAEROBES ISOLATED
05/07/25 18:35 Wound Culture - Final
Leg - Right Staph aureus MRSA
Gram Stain - Final
05/07/25 18:35 Anaerobic Culture - Final
Leg - Right NO ANAEROBES ISOLATED
05/05/25 03:34 Blood Culture - Final
Blood/Venous No Growth - Final Report
05/03/25 04:25 Blood Culture - Final
Blood/Venous Staph aureus MRSA
Gram Stain - Final
05/02/25 03:16 Blood Culture - Final
Blood/Venous Staph aureus MRSA
Gram Stain - Final
05/04/25 03:13 Blood Culture - Final
Blood/Venous No Growth - Final Report
05/06/25 13:19 Body Fluid Culture - Final
Synovial Fluid Staph aureus MRSA
Gram Stain - Final
04/30/25 19:46 Blood Culture - Final
Blood/Venous Staph aureus MRSA
Gram Stain - Final
05/04/25 09:25 Respiratory Culture - Final
Endotracheal Staph aureus MRSA
Gram Stain - Final
05/01/25 17:45 Blood Culture - Final
Blood/Venous Staph aureus MRSA
Gram Stain - Final
04/30/25 19:46 Blood Culture - Final
Blood/Venous Staph aureus MRSA
Gram Stain - Final
05/01/25 01:32 Urine Culture - Final
Urine Yeast
05/01/25 01:17 Blood Parasites Smear - Final
Blood/Venous
04/30/25 23:02 Influenza Types A & B (GIORGIO) - Final
Nasal Swab Negative for Influenza A & B, NAAT
Negative results must be combined with clinical observations
and patient history.
Nucleic Acid Amplification test (NAAT)performed on the
[employer] platform.
Imaging:
05/16/2025 CXR (portable): extensive heterogeneous opacities bilaterally. A 6.2 cm cavitary right lower lobe lesion again noted. No pneumothorax or pleural effusion. Mild cardiac enlargement.
05/12/2025 CXR (portable): improved aeration of the right upper lung compared to prior days imaging. Otherwise, extensive diffuse bilateral patchy, nodular and confluent airspace opacities.
05/02/25 CT RLE: Subcutaneous stranding within the soft tissues of the anterior right thigh, and [id number] anterior soft tissues. No drainable abscess is appreciated. Moderate suprapatellar joint effusion, with areas of loculation.
05/01/2025 ECHO (TTE): EF 55%. Normal biventricular size and systolic function. No significant valvular disease. No obvious vegetations.
05/01/2025 CXR (portable): bilateral interstitial and airspace disease noted which may reflect pulmonary edema or pneumonia. Small bilateral pleural effusions noted. Please see full dictation for additional detail.
05/01/2025 Abdominal x-ray. Enteric tube noted in stomach.
05/01/2025 Renal ultrasound: unremarkable renal ultrasound without hydronephrosis, contour deforming solid renal mass or echogenic shadowing foci to suggest renal calculi. Bilateral pleural effusions noted.
05/01/2025 Duplex ultrasound lower extremity: no evidence of DVT in the bilateral lower extremities
04/30/2025 X-ray right foot: soft tissue injury versus ulceration involving the second digit with soft tissue swelling. The cortex of the distal phalanx is indistinct and the possibility of osteomyelitis cannot be excluded. There is soft tissue
swelling of the first digit. No radiographic evidence to suggest osteomyelitis. Please see full dictation for additional detail.
--- NOTE | 2025-05-20 16:41 | CM ---
Patient seen at bedside
Patient does not want to go to [facility]
requested other referrals to be placed
Referrals placed in [facility]
Will need ins authorization
PLAN: SNF, pending acceptance/bed availability when stable
[2025-05-20] MEDS: LOVENOX 40 MG SC (18:15)
[2025-05-20] MEDS: TYLENOL ORAL SOLUTION 650 MG PO (18:41)
[2025-05-20] MEDS: SENOKOT PO (20:10)
[2025-05-20 23:00] VITALS: BP 141/66
[2025-05-21] MEDS: ROXICODONE 20 MG PO ×5 (02:37→23:08)
--- NOTE | 2025-05-21 02:39 | DOWNTIME ---
There was a [employer] Client Claim Processor Downtime on 05/21/2025 from 0100 to 05/21/2025 at 0235. Downtime documentation of patient's care, including medication administrations, has been reconciled in the electronic record per guidelines. Refer to the
patient's paper chart under the miscellaneous tab to see printed paper medication records and downtime forms.
--- NOTE | 2025-05-21 04:50 | PTCARENOTE ---
Pt requesting miralax at this time. Pt informed of miralax being scheduled for 0800. Pt still requesting miralax and 'needs it now.' Pt stated that he usually takes it this time at home. TORRES notified. 0800 Miralax given early.
[2025-05-21] MEDS: MIRALAX 17 GRAMS PO (04:55)
[2025-05-21 05:01] VITALS: BMI 32.8
[2025-05-21 07:41] VITALS: BP 145/91
[2025-05-21] MEDS: COZAAR 100 MG PO (09:53)
[2025-05-21] MEDS: COREG 25 MG PO ×2 (09:54→19:57)
[2025-05-21] MEDS: CATAPRES 0.2 MG PO ×2 (09:54→19:57)
[2025-05-21] MEDS: MYCOSTATIN ORAL SUSPENSION 5 ML PO ×4 (09:55→21:23)
[2025-05-21] MEDS: SENOKOT 8.6 MG PO (09:55)
[2025-05-21] MEDS: ALDACTONE 50 MG PO (09:55)
[2025-05-21] MEDS: HYDROPHOR 1 APPLIC TOPICAL (09:55)
[2025-05-21] MEDS: PROTONIX 40 MG PO (09:55)
[2025-05-21] MEDS: COLACE PO ×2 (09:56→19:57)
[2025-05-21] MEDS: DESENEX/MITRAZOL/ZEASORB 1 APPLIC TOPICAL ×2 (09:56→19:57)
[2025-05-21] MEDS: FLUSH (NSS) 1 FLUSH IV ×2 (09:57→14:08)
[2025-05-21] MEDS: TEFLARO 270 MG IV ×3 (09:57→23:08)
[2025-05-21] MEDS: DAKIN'S SOLUTION 0.125% 1/4 STRENGTH 473 ML TOPICAL (10:19)
--- NOTE | 2025-05-21 10:44 | W.PN.ID1 ---
Date of Service
Date of Service: May 21, 2025
Today's Communication
Continue current antibiotics. See below�
Assessment / Plan
Sustained (04/30 - 05/09) complicated MRSA bacteremia
- Blood cultures clear as of 05/11/2025
Pulmonary septic emboli
Cavitary MRSA PNA
Septic right knee; s/p washout
Right thigh and calf necrotizing soft tissue infection
Right second toe infection/gangrene/osteomyelitis
Fever -resolving
Leukocytosis -stable
s/p Hypoxemic respiratory failure, self extubated 05/05
SINDY; resolved
Substance abuse (UDS with fentanyl, amphetamine, methamphetamine, benzodiazepine)
Hx CVA (thalamic bleed) with right hemiplegia
Chronic back pain
Recommendations:
05/01/20 TTE without valvular disease.
05/06/25 JEAN: NO VALVULAR VEGETATION
Sputum cx MRSA
Blood cx's negative
05/06 R knee fluid: 41,220 WBC, 54% polys, neg crystals.
Synovial cx : MRSA
05/07/25 - s/p washout of R knee (+PUS). Cx MRSA
05/07/25 - s/p I+D right thigh and calf. Cx MRSA
05/09/25 s/p R 2nd toe amputation
Continue Daptomycin IV (d#14).
- Monitor CK closely while on Dapto
Continue ceftaroline (d#10)
Follow WBC count, platelets, CPK, temperature, O2 requirements.
Last chest CT on 05/11/2025.
Would repeat chest CT scan in the next week or so to follow prior abnormalities (infiltrates, septic emboli, cavitary lesions)
����������������������������������������������������������
Chief Complaint
-: Clinical Sepsis, Pneumonia and Bacteremia
Subjective / Review of Systems
Review of Systems: No Fever and No Chills
Vital Signs / Physical Exam
Vital Signs
Vital Signs
Temp Pulse Resp BP Pulse Ox
97.9 F 79 16 145/91 93
05/21/25 07:41 05/21/25 09:53 05/21/25 07:41 05/21/25 09:53 05/21/25 07:41
Physical Exam
Constitutional: No Acute Distress, Comfortable, Chronically Ill and Non-toxic
Eyes: Sclera Anicteric
Cardiovascular: Regular Rate and S1/S2; Negative S3/S4
Pulmonary: Coarse and Non Labored; Negative Rhonchi
Gastrointestinal: Soft, Non Tender and Normal Bowel Sounds
Extremities: Edema and Venous Insufficiency
Wound: Other (Knee wound; dressing intact. Right thigh wounds with intact dressing. Right foot dressing intact.)
Neurological: Awake and Alert
Lines: Other (midline; no erythema)
Objective Data
Lab Data
Lab Results
05/19/25 05:47
05/16/25 04:52
PT 20.0 Sec (11.4-14.6) H 04/30/25 19:46
INR 1.65 04/30/25 19:46
APTT Cancelled 05/04/25 14:45
Estimated Creat Clear > 125 ml/min 05/16/25 04:52
Lactic Acid 1.9 mmol/L (0.7-2.0) 05/01/25 12:18
Total Bilirubin 1.8 mg/dl (0.2-1.3) H 05/01/25 12:18
AST 38 U/L (17-59) 05/01/25 12:18
ALT 17 U/L (0-50) 05/01/25 12:18
Alkaline Phosphatase 71 U/L (38-126) 05/01/25 12:18
Most recent labs reviewed.
Micro Results:
05/16/25 04:52 Blood Culture - Final
Blood/Venous No Growth - Final Report
05/15/25 05:39 Blood Culture - Final
Blood/Venous No Growth - Final Report
05/14/25 03:20 Blood Culture - Final
Blood/Venous No Growth - Final Report
05/13/25 09:45 Blood Culture - Final
Blood/Venous No Growth - Final Report
05/12/25 05:34 Blood Culture - Final
Blood/Venous No Growth - Final Report
05/11/25 12:40 Blood Culture - Final
Blood/Venous No Growth - Final Report
05/09/25 04:01 Blood Culture - Final
Blood/Venous Staph aureus MRSA
Gram Stain - Final
05/08/25 04:21 Blood Culture - Final
Blood/Venous Staph aureus MRSA
Gram Stain - Final
05/07/25 04:55 Blood Culture - Final
Blood/Venous Staph aureus MRSA
Gram Stain - Final
05/06/25 08:16 Blood Culture - Final
Blood/Venous Staph aureus MRSA
Gram Stain - Final
05/07/25 18:35 Wound Culture - Final
Knee - Right Staph aureus MRSA
Gram Stain - Final
05/07/25 18:35 Anaerobic Culture - Final
Knee - Right NO ANAEROBES ISOLATED
05/07/25 18:35 Wound Culture - Final
Leg - Right Staph aureus MRSA
Gram Stain - Final
05/07/25 18:35 Anaerobic Culture - Final
Leg - Right NO ANAEROBES ISOLATED
05/05/25 03:34 Blood Culture - Final
Blood/Venous No Growth - Final Report
05/03/25 04:25 Blood Culture - Final
Blood/Venous Staph aureus MRSA
Gram Stain - Final
05/02/25 03:16 Blood Culture - Final
Blood/Venous Staph aureus MRSA
Gram Stain - Final
05/04/25 03:13 Blood Culture - Final
Blood/Venous No Growth - Final Report
05/06/25 13:19 Body Fluid Culture - Final
Synovial Fluid Staph aureus MRSA
Gram Stain - Final
04/30/25 19:46 Blood Culture - Final
Blood/Venous Staph aureus MRSA
Gram Stain - Final
05/04/25 09:25 Respiratory Culture - Final
Endotracheal Staph aureus MRSA
Gram Stain - Final
05/01/25 17:45 Blood Culture - Final
Blood/Venous Staph aureus MRSA
Gram Stain - Final
04/30/25 19:46 Blood Culture - Final
Blood/Venous Staph aureus MRSA
Gram Stain - Final
05/01/25 01:32 Urine Culture - Final
Urine Yeast
05/01/25 01:17 Blood Parasites Smear - Final
Blood/Venous
04/30/25 23:02 Influenza Types A & B (GIORGIO) - Final
Nasal Swab Negative for Influenza A & B, NAAT
Negative results must be combined with clinical observations
and patient history.
Nucleic Acid Amplification test (NAAT)performed on the
[employer] platform.
Imaging:
05/16/2025 CXR (portable): extensive heterogeneous opacities bilaterally. A 6.2 cm cavitary right lower lobe lesion again noted. No pneumothorax or pleural effusion. Mild cardiac enlargement.
05/12/2025 CXR (portable): improved aeration of the right upper lung compared to prior days imaging. Otherwise, extensive diffuse bilateral patchy, nodular and confluent airspace opacities.
05/02/25 CT RLE: Subcutaneous stranding within the soft tissues of the anterior right thigh, and [id number] anterior soft tissues. No drainable abscess is appreciated. Moderate suprapatellar joint effusion, with areas of loculation.
05/01/2025 ECHO (TTE): EF 55%. Normal biventricular size and systolic function. No significant valvular disease. No obvious vegetations.
05/01/2025 CXR (portable): bilateral interstitial and airspace disease noted which may reflect pulmonary edema or pneumonia. Small bilateral pleural effusions noted. Please see full dictation for additional detail.
05/01/2025 Abdominal x-ray. Enteric tube noted in stomach.
05/01/2025 Renal ultrasound: unremarkable renal ultrasound without hydronephrosis, contour deforming solid renal mass or echogenic shadowing foci to suggest renal calculi. Bilateral pleural effusions noted.
05/01/2025 Duplex ultrasound lower extremity: no evidence of DVT in the bilateral lower extremities
04/30/2025 X-ray right foot: soft tissue injury versus ulceration involving the second digit with soft tissue swelling. The cortex of the distal phalanx is indistinct and the possibility of osteomyelitis cannot be excluded. There is soft tissue
swelling of the first digit. No radiographic evidence to suggest osteomyelitis. Please see full dictation for additional detail.
[2025-05-21] MEDS: ROXICODONE 10 MG PO ×3 (11:52→21:22)
--- NOTE | 2025-05-21 13:20 | W.PN.HOSP.TC ---
Today's Communication/Plan
-
CW IV abx
DC planning
Assessment / Plan
Assessment / Plan
Mr. Patrice Mera is a 50 yo man with hx polysubstance abuse, prior CVA (thalamic bleed; right hemiplegia), essential HTN, admitted 04/30 with septic shock 2/2 MRSA bacteremia, SINDY with anion gap metabolic acidosis and hypoxemic respiratory failure.
He is found to have septic joint right knee and development of necrotizing fasciitis.
#Acute respiratory failure, VDRF
-patient was intubated on admission for multiple reasons in setting of septic shock, pneumonia, septic emboli
-CTA without PE
-s/p self extubation on 05/05
- Without respiratory distress ; currently on at 1 L of FiO2
-CT Chest -noted with bilateral cavitary nodules
-Methylprednisolone 40 mg IV daily started on 05/11/25 per pulmonary-getting switched to oral prednisone for 5 days-last day 05/20.
-Encouraged to use Acapella or incentive spirometry
#MRSA Bacteremia
Septic Shock - patient was on Levo, Vaso, Epi, Giapreza; remains off pressors
Septic Arthritis Right Knee
Necrotizing Fasciitis right medial thigh and calf
- JEAN 05/06 without e/o vegetation
- Right knee joint aspirate positive for MRSA 05/06
- Exam 05/07 with new concern for necrotizing fasciitis right medial thigh and calf Daily wound care and packing-of the 2 wounds
- Appreciate general surgery and ortho, patient is s/p I&D of necrotizing soft tissue infection and washout right knee on 05/07/25
- 05/07 antibiotics changed to IV Daptomycin, oral Linezolid, Teflaro started on 05/11/2025
- Last positive Blood cultures from 05/09, negative since 05/11/25.
-Blood pressure stable. White count improved.
#Right second toe infection Gangrene
-Appreciate ID and Podiatry
-Antibiotics as above
-Arterial US with multiphasic waveforms
-Wound care Betadine soaked gauze to toe - change every day
-S/P Right 2nd toe amputation secondary to gangrenous changes with exposed bone 05/09/25
# Acute kidney injury - ATN in setting of septic shock
Metabolic Acidosis Resolved
-Patient briefly required CRRT but could not tolerate long
-Ultrasound of the kidneys without obstruction
-Appreciate Renal
-SINDY now resolved
-Cheng discontinued on 05/06
- Creatinine stable
# Anemia secondary to acute illness. H&H stable
# Thrombocytosis secondary to infection
# Anasarca
# Hypoalbuminemia
# Drug abuse urine drug screen positive for Fentanyl, Benzos, Amphetamines and Methamphetamines
Patient was discharged to a rehab last admission however he stayed there only for 2 days and signed himself out
# Multidrug resistant hypertension-currently blood pressure stable without medicines.
Patient was on Coreg, losartan, clonidine, Aldactone as outpatient.
- Patient back on clonidine, spironolactone, losartan, Coreg.
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 Transferred to [place] . Pt says he was there for 3 months and has weakness of right side and facial droop.
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
*confirmed cannot get MRI here given shunt
#Vitamin D deficiency-continue replacement
#Chronic back pain
#Morbid obesity with a BMI of 35- Weight loss recommended
#History of nephrolithiasis
#Possible sleep apnea-needs outpatient study as OP.
#ADHD
#Hepatic steatosis per prior imaging-outpatient follow-up
#Active smoker-cessation counseling when able
#DVT prophylaxis-Lovenox
#Full code
CW IV abx regimen per ID
DC planning
Need rehab on DC
Anticipated Discharge: Within 24 hours
Subjective/Interval History
-
Date of Service: May 21, 2025
No overnight events. Feels slowly but continuously improved. Denies shortness of breath.
Objective Data
-
Vital Signs:
Vital Signs
Temp Pulse Resp BP Pulse Ox
97.9 F 79 16 145/91 93
05/21/25 07:41 05/21/25 09:53 05/21/25 07:41 05/21/25 09:53 05/21/25 07:41
I&O
05/20/25 05/21/25 05/22/25
06:59 06:59 06:59
Intake Total 1600 / 1600
Output Total 2940 / 2940 950 / 950
Balance -1340 / -1340 -950 / -950
Physical Exam
-
General: Comfortable
Respiratory: Clear to Auscultation (anteriorly) and Non Labored Respirations; Negative Accessory Resp Muscle Use
Cardiac: Regular Rhythm and S1/S2; Negative Tachycardic
Neuro: AO x 3
Psych: Calm; Negative Confused
[2025-05-21] MEDS: CUBICIN 130 MG IV (14:08)
--- NOTE | 2025-05-21 14:46 | CM ---
Additional referrals sent in [facility] for SNF
Will await responses for placement
will need insurance auth once bed is secured
PLAN: SNF, pending acceptance/bed availability, will need ins auth
[2025-05-21 15:33] VITALS: BP 142/77
[2025-05-21] MEDS: LOVENOX 40 MG SC (17:10)
[2025-05-21] MEDS: SENOKOT PO (19:57)
[2025-05-21 22:56] VITALS: BP 167/93
[2025-05-22] MEDS: ROXICODONE 20 MG PO ×5 (03:09→20:33)
[2025-05-22 05:51] LABS: Hematocrit 32.6 % (39.0-52.0); Hemoglobin 10.4 g/dL (13.0-18.0); Mean Corp Hgb Conc. 31.9 g/dL (33.0-37.0); Mean Corpuscular Volume 88.3 fL (80.0-94.0); Platelet Count 306 10^3/uL (130-400); Red Cell Dist. Width 17.4 % (11.5-14.5)
[2025-05-22 06:03] LABS: ALT (SGPT) 22 U/L (0-50); AST (SGOT) 15 U/L (17-59); Albumin 3.1 g/dl (3.5-5.0); Alkaline Phosphatase 119 U/L (38-126); Blood Urea Nitrogen 26 mg/dl (9-20); Calcium 9.1 mg/dl (8.4-10.2); Carbon Dioxide 33 mmol/L (22-30); Chloride 96 mmol/L (98-107); Estimated Creatinine Clearance > 125 ml/min; Glucose 109 mg/dl (70-99); Potassium 4.3 mmol/L (3.5-5.1); Sodium 133 mmol/L (135-145); Total Protein 7.0 g/dl (6.3-8.2); eGFR > 60.00
[2025-05-22 06:20] VITALS: BMI 32.2
[2025-05-22 07:50] VITALS: BP 140/72
[2025-05-22] MEDS: COZAAR 100 MG PO (08:04)
[2025-05-22] MEDS: COREG 25 MG PO ×2 (08:05→20:32)
[2025-05-22] MEDS: CATAPRES 0.2 MG PO ×2 (08:06→20:32)
[2025-05-22] MEDS: PROTONIX 40 MG PO (08:07)
[2025-05-22] MEDS: COLACE PO ×2 (08:08→20:22)
[2025-05-22] MEDS: SENOKOT PO ×2 (08:08→20:22)
[2025-05-22] MEDS: MIRALAX PO (08:09)
[2025-05-22] MEDS: MYCOSTATIN ORAL SUSPENSION 5 ML PO ×4 (08:09→21:22)
[2025-05-22] MEDS: ALDACTONE 50 MG PO (08:10)
[2025-05-22] MEDS: TEFLARO 270 MG IV ×2 (08:11→16:00)
[2025-05-22] MEDS: HYDROPHOR 1 APPLIC TOPICAL (08:38)
[2025-05-22] MEDS: DESENEX/MITRAZOL/ZEASORB 1 APPLIC TOPICAL ×2 (08:39→20:33)
[2025-05-22] MEDS: DAKIN'S SOLUTION 0.125% 1/4 STRENGTH 473 ML TOPICAL (08:40)
--- NOTE | 2025-05-22 12:50 | WOUNDNOTE ---
WO RN Note: Patient's R leg dressing was changed by CHAYA Fernandez who reports R thigh and medial knee wounds are clean. Skin on heels intact. Patient refused to be turned for sacral skin assessment. CHAYA Fernandez will assess patient's sacrum later today and
will tiger text this bid writer if patient has skin breakdown. Patient is on a Centrella Max air bed. t/c SPD and ordered a bariatric air chair cushion. CHAYA Fernandez to place in patient's room to add to pillow for heel pressure relief and use in wide
recliner if patient gets out of bed. Heels off bed with pillow.
--- NOTE | 2025-05-22 12:50 | WOUNDNOTE ---
WO RN Note: Patient's R leg dressing was changed by CHAYA Flynn who reports R thigh and medial knee wounds are clean. Skin on heels intact. Patient refused to be turned for sacral skin assessment. CHAYA Flynn will assess patient's sacrum later today and
will tiger text this property underwriter if patient has skin breakdown. Patient is on a Centrella Max air bed. t/c SPD and ordered a bariatric air chair cushion. CHAYA Flynn to place in patient's room to add to pillow for heel pressure relief and use in wide
recliner if patient gets out of bed. Heels off bed with pillow.
--- NOTE | 2025-05-22 12:58 | W.PN.ID1 ---
Date of Service
Date of Service: May 22, 2025
Today's Communication
Continue antibiotics
Assessment / Plan
Sustained (04/30 - 05/09) complicated MRSA bacteremia
- Blood cultures clear as of 05/11/2025
Pulmonary septic emboli
Cavitary MRSA PNA
Septic arthritis - right knee; s/p washout
Right thigh & calf necrotizing soft tissue infection
Right second toe infection/gangrene/osteomyelitis; s/p amputation
Fever -resolving
Leukocytosis -stable
s/p Hypoxemic respiratory failure, self extubated 05/05
SINDY; resolved
Substance abuse (UDS with fentanyl, amphetamine, methamphetamine, benzodiazepine)
Hx CVA (thalamic bleed) with right hemiplegia
Chronic back pain
Recommendations:
05/01/20 TTE without valvular disease.
05/06/25 JEAN: NO VALVULAR VEGETATION
Sputum cx MRSA
Blood cx's negative
05/06 R knee fluid: 41,220 WBC, 54% polys, neg crystals.
Synovial cx : MRSA
05/07/25 - s/p washout of R knee (+PUS). Cx MRSA
05/07/25 - s/p I+D right thigh and calf. Cx MRSA
05/09/25 s/p R 2nd toe amputation
Continue Daptomycin IV (d#15).
- Monitor CK closely while on Dapto
Continue ceftaroline (d#11)
Follow WBC count, platelets, CPK, temperature, O2 requirements.
Elevation in WBC noted today; will continue to follow
Last chest CT on 05/11/2025.
Would repeat chest CT scan in the next week or so to follow prior abnormalities (infiltrates, septic emboli, cavitary lesions)
����������������������������������������������������������
Chief Complaint
-: Clinical Sepsis, Pneumonia and Bacteremia
Subjective / Review of Systems
Review of Systems: No Fever and No Chills
Vital Signs / Physical Exam
Vital Signs
Vital Signs
Temp Pulse Resp BP Pulse Ox
98.3 F 84 16 140/72 93
05/22/25 07:50 05/22/25 08:10 05/22/25 07:50 05/22/25 08:10 05/22/25 09:16
Physical Exam
Constitutional: No Acute Distress, Comfortable, Chronically Ill and Non-toxic
Eyes: Sclera Anicteric
Cardiovascular: Regular Rate and S1/S2; Negative S3/S4
Pulmonary: Coarse and Non Labored; Negative Rhonchi
Gastrointestinal: Soft, Non Tender and Normal Bowel Sounds
Extremities: Edema and Venous Insufficiency
Wound: Other (Knee wound; dressing intact. Right thigh wounds with intact dressing. Right foot dressing intact.)
Neurological: Awake and Alert
Lines: Other (midline; no erythema)
Objective Data
Lab Data
Lab Results
05/22/25 05:07
05/22/25 05:07
PT 20.0 Sec (11.4-14.6) H 04/30/25 19:46
INR 1.65 04/30/25 19:46
APTT Cancelled 05/04/25 14:45
Estimated Creat Clear > 125 ml/min 05/22/25 05:07
Lactic Acid 1.9 mmol/L (0.7-2.0) 05/01/25 12:18
Total Bilirubin 0.8 mg/dl (0.2-1.3) 05/22/25 05:07
AST 15 U/L (17-59) L 05/22/25 05:07
ALT 22 U/L (0-50) 05/22/25 05:07
Alkaline Phosphatase 119 U/L (38-126) 05/22/25 05:07
Most recent labs reviewed.
Micro Results:
05/16/25 04:52 Blood Culture - Final
Blood/Venous No Growth - Final Report
05/15/25 05:39 Blood Culture - Final
Blood/Venous No Growth - Final Report
05/14/25 03:20 Blood Culture - Final
Blood/Venous No Growth - Final Report
05/13/25 09:45 Blood Culture - Final
Blood/Venous No Growth - Final Report
05/12/25 05:34 Blood Culture - Final
Blood/Venous No Growth - Final Report
05/11/25 12:40 Blood Culture - Final
Blood/Venous No Growth - Final Report
05/09/25 04:01 Blood Culture - Final
Blood/Venous Staph aureus MRSA
Gram Stain - Final
05/08/25 04:21 Blood Culture - Final
Blood/Venous Staph aureus MRSA
Gram Stain - Final
05/07/25 04:55 Blood Culture - Final
Blood/Venous Staph aureus MRSA
Gram Stain - Final
05/06/25 08:16 Blood Culture - Final
Blood/Venous Staph aureus MRSA
Gram Stain - Final
05/07/25 18:35 Wound Culture - Final
Knee - Right Staph aureus MRSA
Gram Stain - Final
05/07/25 18:35 Anaerobic Culture - Final
Knee - Right NO ANAEROBES ISOLATED
05/07/25 18:35 Wound Culture - Final
Leg - Right Staph aureus MRSA
Gram Stain - Final
05/07/25 18:35 Anaerobic Culture - Final
Leg - Right NO ANAEROBES ISOLATED
05/05/25 03:34 Blood Culture - Final
Blood/Venous No Growth - Final Report
05/03/25 04:25 Blood Culture - Final
Blood/Venous Staph aureus MRSA
Gram Stain - Final
05/02/25 03:16 Blood Culture - Final
Blood/Venous Staph aureus MRSA
Gram Stain - Final
05/04/25 03:13 Blood Culture - Final
Blood/Venous No Growth - Final Report
05/06/25 13:19 Body Fluid Culture - Final
Synovial Fluid Staph aureus MRSA
Gram Stain - Final
04/30/25 19:46 Blood Culture - Final
Blood/Venous Staph aureus MRSA
Gram Stain - Final
05/04/25 09:25 Respiratory Culture - Final
Endotracheal Staph aureus MRSA
Gram Stain - Final
05/01/25 17:45 Blood Culture - Final
Blood/Venous Staph aureus MRSA
Gram Stain - Final
04/30/25 19:46 Blood Culture - Final
Blood/Venous Staph aureus MRSA
Gram Stain - Final
05/01/25 01:32 Urine Culture - Final
Urine Yeast
05/01/25 01:17 Blood Parasites Smear - Final
Blood/Venous
04/30/25 23:02 Influenza Types A & B (GIORGIO) - Final
Nasal Swab Negative for Influenza A & B, NAAT
Negative results must be combined with clinical observations
and patient history.
Nucleic Acid Amplification test (NAAT)performed on the
[employer] platform.
Imaging:
05/16/2025 CXR (portable): extensive heterogeneous opacities bilaterally. A 6.2 cm cavitary right lower lobe lesion again noted. No pneumothorax or pleural effusion. Mild cardiac enlargement.
05/12/2025 CXR (portable): improved aeration of the right upper lung compared to prior days imaging. Otherwise, extensive diffuse bilateral patchy, nodular and confluent airspace opacities.
05/02/25 CT RLE: Subcutaneous stranding within the soft tissues of the anterior right thigh, and [id number] anterior soft tissues. No drainable abscess is appreciated. Moderate suprapatellar joint effusion, with areas of loculation.
05/01/2025 ECHO (TTE): EF 55%. Normal biventricular size and systolic function. No significant valvular disease. No obvious vegetations.
05/01/2025 CXR (portable): bilateral interstitial and airspace disease noted which may reflect pulmonary edema or pneumonia. Small bilateral pleural effusions noted. Please see full dictation for additional detail.
05/01/2025 Abdominal x-ray. Enteric tube noted in stomach.
05/01/2025 Renal ultrasound: unremarkable renal ultrasound without hydronephrosis, contour deforming solid renal mass or echogenic shadowing foci to suggest renal calculi. Bilateral pleural effusions noted.
05/01/2025 Duplex ultrasound lower extremity: no evidence of DVT in the bilateral lower extremities
04/30/2025 X-ray right foot: soft tissue injury versus ulceration involving the second digit with soft tissue swelling. The cortex of the distal phalanx is indistinct and the possibility of osteomyelitis cannot be excluded. There is soft tissue
swelling of the first digit. No radiographic evidence to suggest osteomyelitis. Please see full dictation for additional detail.
[2025-05-22] MEDS: CUBICIN 130 MG IV (13:41)
[2025-05-22] MEDS: ROXICODONE 10 MG PO ×2 (14:07→18:34)
--- NOTE | 2025-05-22 14:23 | W.PN.HOSP.TC ---
Today's Communication/Plan
-
CW Abx
Repeat CBC in am
Continue with DC efforts
Assessment / Plan
Assessment / Plan
Mr. Patrice Mera is a 50 yo man with hx polysubstance abuse, prior CVA (thalamic bleed; right hemiplegia), essential HTN, admitted 04/30 with septic shock 2/2 MRSA bacteremia, SINDY with anion gap metabolic acidosis and hypoxemic respiratory failure.
He is found to have septic joint right knee and development of necrotizing fasciitis.
#Acute respiratory failure, VDRF
-patient was intubated on admission for multiple reasons in setting of septic shock, pneumonia, septic emboli
-CTA without PE
-s/p self extubation on 05/05
- Without respiratory distress ; currently on at 1 L of FiO2
-CT Chest -noted with bilateral cavitary nodules -repeat chest CT next week to follow on it
-Methylprednisolone 40 mg IV daily started on 05/11/25 per pulmonary-getting switched to oral prednisone for 5 days-last day 05/20.
-Encouraged to use Acapella or incentive spirometry
#MRSA Bacteremia
Septic Shock - patient was on Levo, Vaso, Epi, Giapreza; remains off pressors
Septic Arthritis Right Knee
Necrotizing Fasciitis right medial thigh and calf
- JEAN 05/06 without e/o vegetation
- Right knee joint aspirate positive for MRSA 05/06
- Exam 05/07 with new concern for necrotizing fasciitis right medial thigh and calf Daily wound care and packing-of the 2 wounds
- Appreciate general surgery and ortho, patient is s/p I&D of necrotizing soft tissue infection and washout right knee on 05/07/25
- 05/07 antibiotics changed to IV Daptomycin, oral Linezolid, Teflaro started on 05/11/2025
- Last positive Blood cultures from 05/09, negative since 05/11/25.
-Blood pressure stable. White count went up today -follow for now
#Right second toe infection Gangrene
-Appreciate ID and Podiatry
-Antibiotics as above
-Arterial US with multiphasic waveforms
-Wound care Betadine soaked gauze to toe - change every day
-S/P Right 2nd toe amputation secondary to gangrenous changes with exposed bone 05/09/25
# Acute kidney injury - ATN in setting of septic shock
Metabolic Acidosis Resolved
-Patient briefly required CRRT but could not tolerate long
-Ultrasound of the kidneys without obstruction
-Appreciate Renal
-SINDY now resolved
-Cheng discontinued on 05/06
- Creatinine stable
# Anemia secondary to acute illness. H&H stable
# Thrombocytosis secondary to infection
# Anasarca
# Hypoalbuminemia
# Drug abuse urine drug screen positive for Fentanyl, Benzos, Amphetamines and Methamphetamines
Patient was discharged to a rehab last admission however he stayed there only for 2 days and signed himself out
# Multidrug resistant hypertension-currently blood pressure stable without medicines.
Patient was on Coreg, losartan, clonidine, Aldactone as outpatient.
- Patient back on clonidine, spironolactone, losartan, Coreg.
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 Transferred to [place] . Pt says he was there for 3 months and has weakness of right side and facial droop.
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
*confirmed cannot get MRI here given shunt
#Vitamin D deficiency-continue replacement
#Chronic back pain
#Morbid obesity with a BMI of 35- Weight loss recommended
#History of nephrolithiasis
#Possible sleep apnea-needs outpatient study as OP.
#ADHD
#Hepatic steatosis per prior imaging-outpatient follow-up
#Active smoker-cessation counseling when able
#DVT prophylaxis-Lovenox
#Full code
CW IV abx regimen per ID
DC planning
Need rehab on DC
Anticipated Discharge: 24 - 48 hours
Subjective/Interval History
-
Date of Service: May 22, 2025
No new complaints
No overnight events
Per RN - reluctant to participate in his care
Objective Data
-
Labs:
Laboratory Results
05/22/25
05:07
WBC 14.9 H
Hgb 10.4 L
Hct 32.6 L
Plt Count 306 D
Sodium 133 L
Potassium 4.3
Chloride 96 L
Carbon Dioxide 33 H
BUN 26 H
Creatinine 0.7
Glucose 109 H
Calcium 9.1
Total Bilirubin 0.8
AST 15 L
ALT 22
Alkaline Phosphatase 119
Vital Signs:
Vital Signs
Temp Pulse Resp BP Pulse Ox
98.3 F 84 16 140/72 93
05/22/25 07:50 05/22/25 08:10 05/22/25 07:50 05/22/25 08:10 05/22/25 09:16
I&O
05/21/25 05/22/25 05/23/25
06:59 06:59 06:59
Intake Total 1440 / 1440
Output Total 950 / 950 1850 / 1850
Balance -950 / -950 -410 / -410
Physical Exam
-
General: Comfortable
Respiratory: Clear to Auscultation (anteriorly) and Non Labored Respirations; Negative Accessory Resp Muscle Use
Neuro: AO x 3
Psych: Calm; Negative Confused
Data Reviewed
-
Labs: Labs Reviewed by me
[2025-05-22 15:12] VITALS: BP 108/57
[2025-05-22 15:37] VITALS: BP 108/57; PULSE 88; O2SAT 94
[2025-05-22 15:49] VITALS: BP 108/57; O2SAT 94
[2025-05-22] MEDS: LOVENOX 40 MG SC (17:24)
[2025-05-22 22:54] VITALS: BP 172/73
[2025-05-23] MEDS: TEFLARO 270 MG IV ×3 (00:20→15:54)
[2025-05-23] MEDS: ROXICODONE 20 MG PO ×5 (00:34→20:42)
[2025-05-23] MEDS: ROXICODONE 10 MG PO ×2 (03:48→18:20)
[2025-05-23 04:57] LABS: Hematocrit 29.4 % (39.0-52.0); Hemoglobin 9.3 g/dL (13.0-18.0); Mean Corp Hgb Conc. 31.6 g/dL (33.0-37.0); Mean Corpuscular Volume 88.6 fL (80.0-94.0); Platelet Count 267 10^3/uL (130-400); Red Cell Dist. Width 17.4 % (11.5-14.5)
[2025-05-23 06:19] VITALS: BMI 32.8
[2025-05-23] MEDS: ALDACTONE 50 MG PO (07:43)
[2025-05-23] MEDS: CATAPRES PO (07:44)
[2025-05-23 07:45] VITALS: BP 118/60
[2025-05-23] MEDS: COREG 25 MG PO ×2 (07:45→19:58)
[2025-05-23] MEDS: PROTONIX 40 MG PO (07:45)
[2025-05-23] MEDS: COZAAR 100 MG PO (07:45)
[2025-05-23] MEDS: MYCOSTATIN ORAL SUSPENSION 5 ML PO ×3 (07:46→17:29)
[2025-05-23] MEDS: MIRALAX PO (07:46)
[2025-05-23] MEDS: COLACE PO ×2 (07:47→19:58)
[2025-05-23] MEDS: SENOKOT PO ×2 (07:47→19:58)
[2025-05-23] MEDS: DAKIN'S SOLUTION 0.125% 1/4 STRENGTH 473 ML TOPICAL (08:24)
[2025-05-23] MEDS: HYDROPHOR 1 APPLIC TOPICAL (08:25)
[2025-05-23] MEDS: DESENEX/MITRAZOL/ZEASORB 1 APPLIC TOPICAL ×2 (08:25→19:59)
--- NOTE | 2025-05-23 12:52 | W.PN.HOSP.TC ---
Today's Communication/Plan
-
Follow WBC
CW Abx
CW DC plans
Assessment / Plan
Assessment / Plan
Mr. Patrice Mera is a 50 yo man with hx polysubstance abuse, prior CVA (thalamic bleed; right hemiplegia), essential HTN, admitted 04/30 with septic shock 2/2 MRSA bacteremia, SINDY with anion gap metabolic acidosis and hypoxemic respiratory failure.
He is found to have septic joint right knee and development of necrotizing fasciitis.
#Acute respiratory failure, VDRF
-patient was intubated on admission for multiple reasons in setting of septic shock, pneumonia, septic emboli
-CTA without PE
-s/p self extubation on 05/05
- Without respiratory distress ; currently on at 1 L of FiO2
-CT Chest -noted with bilateral cavitary nodules -repeat chest CT next week to follow on it
-Methylprednisolone 40 mg IV daily started on 05/11/25 per pulmonary-getting switched to oral prednisone for 5 days-last day 05/20.
-Encouraged to use Acapella or incentive spirometry
#MRSA Bacteremia
Septic Shock - patient was on Levo, Vaso, Epi, Giapreza; remains off pressors
Septic Arthritis Right Knee
Necrotizing Fasciitis right medial thigh and calf
- JEAN 05/06 without e/o vegetation
- Right knee joint aspirate positive for MRSA 05/06
- Exam 05/07 with new concern for necrotizing fasciitis right medial thigh and calf Daily wound care and packing-of the 2 wounds
- Appreciate general surgery and ortho, patient is s/p I&D of necrotizing soft tissue infection and washout right knee on 05/07/25
- 05/07 antibiotics changed to IV Daptomycin Teflaro started on 05/11/2025
- Last positive Blood cultures from 05/09, negative since 05/11/25.
-Blood pressure stable. White count went up today -follow for now
- Will obtain CT chest follow up if continued raise in WBC
#Right second toe infection Gangrene
-Appreciate ID and Podiatry
-Antibiotics as above
-Arterial US with multiphasic waveforms
-Wound care Betadine soaked gauze to toe - change every day
-S/P Right 2nd toe amputation secondary to gangrenous changes with exposed bone 05/09/25
# Acute kidney injury - ATN in setting of septic shock
Metabolic Acidosis Resolved
-Patient briefly required CRRT but could not tolerate long
-Ultrasound of the kidneys without obstruction
-Appreciate Renal
-SINDY now resolved
-Cheng discontinued on 05/06
- Creatinine stable
# Anemia secondary to acute illness. H&H stable
# Thrombocytosis secondary to infection
# Anasarca
# Hypoalbuminemia
# Drug abuse urine drug screen positive for Fentanyl, Benzos, Amphetamines and Methamphetamines
Patient was discharged to a rehab last admission however he stayed there only for 2 days and signed himself out
# Multidrug resistant hypertension-currently blood pressure stable without medicines.
Patient was on Coreg, losartan, clonidine, Aldactone as outpatient.
- Patient back on clonidine, spironolactone, losartan, Coreg.
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 Transferred to [place] . Pt says he was there for 3 months and has weakness of right side and facial droop.
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
*confirmed cannot get MRI here given shunt
#Vitamin D deficiency-continue replacement
#Chronic back pain
#Morbid obesity with a BMI of 35- Weight loss recommended
#History of nephrolithiasis
#Possible sleep apnea-needs outpatient study as OP.
#ADHD
#Hepatic steatosis per prior imaging-outpatient follow-up
#Active smoker-cessation counseling when able
#DVT prophylaxis-Lovenox
#Full code
CW IV abx regimen per ID
DC planning
Need rehab on DC
Anticipated Discharge: Within 24 hours
Subjective/Interval History
-
Date of Service: May 23, 2025
No overnight events.
Denies shortness of breath. Tolerating diet. No fever or chills.
Objective Data
-
Labs:
Laboratory Results
05/23/25
04:40
WBC 14.3 H
Hgb 9.3 L
Hct 29.4 L
Plt Count 267
Vital Signs:
Vital Signs
Temp Pulse Resp BP Pulse Ox
98.3 F 82 14 118/60 93
05/23/25 07:45 05/23/25 07:45 05/23/25 07:45 05/23/25 07:45 05/23/25 09:43
I&O
05/22/25 05/23/25 05/24/25
06:59 06:59 06:59
Intake Total 1440 / 1440 1710 / 1710
Output Total 1850 / 1850 1675 / 1675
Balance -410 / -410 35 / 35
Physical Exam
-
General: Comfortable
Respiratory: Clear to Auscultation (anteriorly) and Non Labored Respirations; Negative Accessory Resp Muscle Use
Cardiac: Regular Rhythm and S1/S2; Negative Tachycardic
Neuro: AO x 3
Data Reviewed
-
Labs: Labs Reviewed by me
--- NOTE | 2025-05-23 13:01 | WOUNDNOTE ---
R 2ND TOE AMP INCISION (Photo taken by CHAYA Chambers)
--- NOTE | 2025-05-23 13:02 | WOUNDNOTE ---
R KNEE/UPPER CALF (MEDIAL) (Photo taken by CHAYA Chambers)
--- NOTE | 2025-05-23 13:03 | WOUNDNOTE ---
R KNEE/CALF (UPPER MEDIAL)(Photo taken by CHAYA Chambers)
--- NOTE | 2025-05-23 13:04 | WOUNDNOTE ---
R THIGH (MEDIAL)(Photo taken by CHAYA Chambers)
--- NOTE | 2025-05-23 13:10 | WOUNDNOTE ---
[facility] RN note: CHAYA Galvez did patient's wound care and tiger texted this job specification writer wound photos. R medial thigh and medial knee wounds pink with small yellow tissue. No surrounding erythema. R 2nd toe amp incision approximated with sutures intact. CHAYA Galvez
reports patient's sacral skin is blanchable red and intact. Patient is on a [facility] Wide air bed and has a bariatric air chair cushion. Downloaded wound pictures in patient's chart. Patient is discharged when SNF is decided/accepted. Will
follow peripherally as needed.
--- NOTE | 2025-05-23 14:00 | WOUNDNOTE ---
[facility] RN note: Sarthak texted Dr. Burris re: patient is still here waiting for a SNF transfer in case she wants to remove patient's R 2nd toe amp sutures prior to discharge.
[2025-05-23] MEDS: CUBICIN 130 MG IV (14:01)
[2025-05-23 15:07] VITALS: BP 121/59
--- NOTE | 2025-05-23 15:12 | W.PN.ID1 ---
Date of Service
Date of Service: May 23, 2025
Today's Communication
Continue antibiotics.
Assessment / Plan
Sustained (04/30 - 05/09) complicated MRSA bacteremia
- Blood cultures clear as of 05/11/2025
Pulmonary septic emboli
Cavitary MRSA PNA
Septic arthritis - right knee; s/p washout
Right thigh & calf necrotizing soft tissue infection
Right second toe infection/gangrene/osteomyelitis; s/p amputation
Fever -resolving
Leukocytosis -stable
s/p Hypoxemic respiratory failure, self extubated 05/05
SINDY; resolved
Substance abuse (UDS with fentanyl, amphetamine, methamphetamine, benzodiazepine)
Hx CVA (thalamic bleed) with right hemiplegia
Chronic back pain
Recommendations:
05/01/20 TTE without valvular disease.
05/06/25 JEAN: NO VALVULAR VEGETATION
Sputum cx MRSA
Blood cx's negative
05/06 R knee fluid: 41,220 WBC, 54% polys, neg crystals.
Synovial cx : MRSA
05/07/25 - s/p washout of R knee (+PUS). Cx MRSA
05/07/25 - s/p I+D right thigh and calf. Cx MRSA
05/09/25 s/p R 2nd toe amputation
Continue Daptomycin IV (d#16).
- Monitor CK closely while on Dapto
Continue ceftaroline (d#12)
Follow WBC count, platelets, CPK, temperature, O2 requirements.
White count stable today. Continuing to follow.
Last chest CT on 05/11/2025.
Would repeat chest CT scan in the next week or so to follow prior abnormalities (infiltrates, septic emboli, cavitary lesions)
����������������������������������������������������������
Chief Complaint
-: Clinical Sepsis, Pneumonia and Bacteremia
Subjective / Review of Systems
Review of Systems: No Fever, No Chills and No Cough
Vital Signs / Physical Exam
Vital Signs
Vital Signs
Temp Pulse Resp BP Pulse Ox
98 F 84 16 121/59 94
05/23/25 15:07 05/23/25 15:07 05/23/25 15:07 05/23/25 15:07 05/23/25 15:07
Physical Exam
Constitutional: No Acute Distress, Comfortable, Chronically Ill and Non-toxic
Eyes: Sclera Anicteric
Cardiovascular: Regular Rate and S1/S2; Negative S3/S4
Pulmonary: Non Labored; Negative Rhonchi
Gastrointestinal: Soft, Non Tender and Normal Bowel Sounds
Extremities: Edema and Venous Insufficiency
Wound: Other (Knee wound; dressing intact. Right thigh wounds with intact dressing. Right foot dressing intact.)
Neurological: Awake and Alert
Lines: Other (midline; no erythema)
Objective Data
Lab Data
Lab Results
05/23/25 04:40
05/22/25 05:07
PT 20.0 Sec (11.4-14.6) H 04/30/25 19:46
INR 1.65 04/30/25 19:46
APTT Cancelled 05/04/25 14:45
Estimated Creat Clear > 125 ml/min 05/22/25 05:07
Lactic Acid 1.9 mmol/L (0.7-2.0) 05/01/25 12:18
Total Bilirubin 0.8 mg/dl (0.2-1.3) 05/22/25 05:07
AST 15 U/L (17-59) L 05/22/25 05:07
ALT 22 U/L (0-50) 05/22/25 05:07
Alkaline Phosphatase 119 U/L (38-126) 05/22/25 05:07
Most recent labs reviewed.
Micro Results:
05/16/25 04:52 Blood Culture - Final
Blood/Venous No Growth - Final Report
05/15/25 05:39 Blood Culture - Final
Blood/Venous No Growth - Final Report
05/14/25 03:20 Blood Culture - Final
Blood/Venous No Growth - Final Report
05/13/25 09:45 Blood Culture - Final
Blood/Venous No Growth - Final Report
05/12/25 05:34 Blood Culture - Final
Blood/Venous No Growth - Final Report
05/11/25 12:40 Blood Culture - Final
Blood/Venous No Growth - Final Report
05/09/25 04:01 Blood Culture - Final
Blood/Venous Staph aureus MRSA
Gram Stain - Final
05/08/25 04:21 Blood Culture - Final
Blood/Venous Staph aureus MRSA
Gram Stain - Final
05/07/25 04:55 Blood Culture - Final
Blood/Venous Staph aureus MRSA
Gram Stain - Final
05/06/25 08:16 Blood Culture - Final
Blood/Venous Staph aureus MRSA
Gram Stain - Final
05/07/25 18:35 Wound Culture - Final
Knee - Right Staph aureus MRSA
Gram Stain - Final
05/07/25 18:35 Anaerobic Culture - Final
Knee - Right NO ANAEROBES ISOLATED
05/07/25 18:35 Wound Culture - Final
Leg - Right Staph aureus MRSA
Gram Stain - Final
05/07/25 18:35 Anaerobic Culture - Final
Leg - Right NO ANAEROBES ISOLATED
05/05/25 03:34 Blood Culture - Final
Blood/Venous No Growth - Final Report
05/03/25 04:25 Blood Culture - Final
Blood/Venous Staph aureus MRSA
Gram Stain - Final
05/02/25 03:16 Blood Culture - Final
Blood/Venous Staph aureus MRSA
Gram Stain - Final
05/04/25 03:13 Blood Culture - Final
Blood/Venous No Growth - Final Report
05/06/25 13:19 Body Fluid Culture - Final
Synovial Fluid Staph aureus MRSA
Gram Stain - Final
04/30/25 19:46 Blood Culture - Final
Blood/Venous Staph aureus MRSA
Gram Stain - Final
05/04/25 09:25 Respiratory Culture - Final
Endotracheal Staph aureus MRSA
Gram Stain - Final
05/01/25 17:45 Blood Culture - Final
Blood/Venous Staph aureus MRSA
Gram Stain - Final
04/30/25 19:46 Blood Culture - Final
Blood/Venous Staph aureus MRSA
Gram Stain - Final
05/01/25 01:32 Urine Culture - Final
Urine Yeast
05/01/25 01:17 Blood Parasites Smear - Final
Blood/Venous
04/30/25 23:02 Influenza Types A & B (GIORGIO) - Final
Nasal Swab Negative for Influenza A & B, NAAT
Negative results must be combined with clinical observations
and patient history.
Nucleic Acid Amplification test (NAAT)performed on the
[id number] platform.
Imaging:
05/16/2025 CXR (portable): extensive heterogeneous opacities bilaterally. A 6.2 cm cavitary right lower lobe lesion again noted. No pneumothorax or pleural effusion. Mild cardiac enlargement.
05/12/2025 CXR (portable): improved aeration of the right upper lung compared to prior days imaging. Otherwise, extensive diffuse bilateral patchy, nodular and confluent airspace opacities.
05/02/25 CT RLE: Subcutaneous stranding within the soft tissues of the anterior right thigh, and [id number] anterior soft tissues. No drainable abscess is appreciated. Moderate suprapatellar joint effusion, with areas of loculation.
05/01/2025 ECHO (TTE): EF 55%. Normal biventricular size and systolic function. No significant valvular disease. No obvious vegetations.
05/01/2025 CXR (portable): bilateral interstitial and airspace disease noted which may reflect pulmonary edema or pneumonia. Small bilateral pleural effusions noted. Please see full dictation for additional detail.
05/01/2025 Abdominal x-ray. Enteric tube noted in stomach.
05/01/2025 Renal ultrasound: unremarkable renal ultrasound without hydronephrosis, contour deforming solid renal mass or echogenic shadowing foci to suggest renal calculi. Bilateral pleural effusions noted.
05/01/2025 Duplex ultrasound lower extremity: no evidence of DVT in the bilateral lower extremities
04/30/2025 X-ray right foot: soft tissue injury versus ulceration involving the second digit with soft tissue swelling. The cortex of the distal phalanx is indistinct and the possibility of osteomyelitis cannot be excluded. There is soft tissue
swelling of the first digit. No radiographic evidence to suggest osteomyelitis. Please see full dictation for additional detail.
[2025-05-23] MEDS: LOVENOX 40 MG SC (17:27)
[2025-05-23] MEDS: CATAPRES 0.2 MG PO (19:58)
[2025-05-23] MEDS: MYCOSTATIN ORAL SUSPENSION PO (22:25)
[2025-05-23 22:57] VITALS: BP 125/65
[2025-05-24] MEDS: TEFLARO 270 MG IV ×4 (01:05→23:15)
[2025-05-24] MEDS: ROXICODONE 20 MG PO ×5 (04:04→23:15)
[2025-05-24 06:00] VITALS: BMI 33.0
[2025-05-24 07:53] VITALS: BP 117/58
[2025-05-24] MEDS: ALDACTONE 50 MG PO (08:13)
[2025-05-24] MEDS: MYCOSTATIN ORAL SUSPENSION 5 ML PO ×4 (08:13→21:22)
[2025-05-24] MEDS: CATAPRES 0.2 MG PO ×2 (08:13→21:22)
[2025-05-24] MEDS: ROXICODONE 10 MG PO ×4 (08:14→21:30)
[2025-05-24] MEDS: COZAAR 100 MG PO (08:14)
[2025-05-24] MEDS: COREG 25 MG PO ×2 (08:14→21:18)
[2025-05-24] MEDS: PROTONIX 40 MG PO (08:14)
[2025-05-24] MEDS: MIRALAX PO (08:15)
[2025-05-24] MEDS: SENOKOT PO (08:15)
[2025-05-24] MEDS: COLACE PO (08:19)
[2025-05-24 09:17] LABS: Hematocrit 28.7 % (39.0-52.0); Hemoglobin 9.0 g/dL (13.0-18.0); Mean Corp Hgb Conc. 31.4 g/dL (33.0-37.0); Mean Corpuscular Volume 89.7 fL (80.0-94.0); Platelet Count 249 10^3/uL (130-400); Red Cell Dist. Width 17.2 % (11.5-14.5)
[2025-05-24 09:45] LABS: Blood Urea Nitrogen 26 mg/dl (9-20); Calcium 8.6 mg/dl (8.4-10.2); Carbon Dioxide 33 mmol/L (22-30); Chloride 97 mmol/L (98-107); Estimated Creatinine Clearance > 125 ml/min; Glucose 159 mg/dl (70-99); Potassium 4.6 mmol/L (3.5-5.1); Sodium 132 mmol/L (135-145); eGFR > 60.00
--- NOTE | 2025-05-24 12:45 | W.PN.HOSP.TC ---
Today's Communication/Plan
-
CW current treatments
Ongoing dispo efforts
Assessment / Plan
Assessment / Plan
Mr. Patrice Mera is a 50 yo man with hx polysubstance abuse, prior CVA (thalamic bleed; right hemiplegia), essential HTN, admitted 04/30 with septic shock 2/2 MRSA bacteremia, SINDY with anion gap metabolic acidosis and hypoxemic respiratory failure.
He is found to have septic joint right knee and development of necrotizing fasciitis.
#Acute respiratory failure, VDRF
-patient was intubated on admission for multiple reasons in setting of septic shock, pneumonia, septic emboli
-CTA without PE
-s/p self extubation on 05/05
- Without respiratory distress ; currently on at 1 L of FiO2
-CT Chest -noted with bilateral cavitary nodules -repeat chest CT next week to follow on it
-Methylprednisolone 40 mg IV daily started on 05/11/25 per pulmonary-getting switched to oral prednisone for 5 days-last day 05/20.
-Encouraged to use Acapella or incentive spirometry
#MRSA Bacteremia
Septic Shock - patient was on Levo, Vaso, Epi, Giapreza; remains off pressors
Septic Arthritis Right Knee
Necrotizing Fasciitis right medial thigh and calf
- JEAN 05/06 without e/o vegetation
- Right knee joint aspirate positive for MRSA 05/06
- Exam 05/07 with new concern for necrotizing fasciitis right medial thigh and calf Daily wound care and packing-of the 2 wounds
- Appreciate general surgery and ortho, patient is s/p I&D of necrotizing soft tissue infection and washout right knee on 05/07/25
- 05/07 antibiotics changed to IV Daptomycin Teflaro started on 05/11/2025
- Last positive Blood cultures from 05/09, negative since 05/11/25.
-Blood pressure stable. White count improving -follow for now
#Right second toe infection Gangrene
-Appreciate ID and Podiatry
-Antibiotics as above
-Arterial US with multiphasic waveforms
-Wound care Betadine soaked gauze to toe - change every day
-S/P Right 2nd toe amputation secondary to gangrenous changes with exposed bone 05/09/25
# Acute kidney injury - ATN in setting of septic shock
Metabolic Acidosis Resolved
-Patient briefly required CRRT but could not tolerate long
-Ultrasound of the kidneys without obstruction
-Appreciate Renal
-SINDY now resolved
-Cheng discontinued on 05/06
- Creatinine stable
# Anemia secondary to acute illness. H&H stable
# Thrombocytosis secondary to infection
# Anasarca
# Hypoalbuminemia
# Drug abuse urine drug screen positive for Fentanyl, Benzos, Amphetamines and Methamphetamines
Patient was discharged to a rehab last admission however he stayed there only for 2 days and signed himself out
# Multidrug resistant hypertension-currently blood pressure stable without medicines.
Patient was on Coreg, losartan, clonidine, Aldactone as outpatient.
- Patient back on clonidine, spironolactone, losartan, Coreg.
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 Transferred to [place] . Pt says he was there for 3 months and has weakness of right side and facial droop.
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
*confirmed cannot get MRI here given shunt
#Vitamin D deficiency-continue replacement
#Chronic back pain
#Morbid obesity with a BMI of 35- Weight loss recommended
#History of nephrolithiasis
#Possible sleep apnea-needs outpatient study as OP.
#ADHD
#Hepatic steatosis per prior imaging-outpatient follow-up
#Active smoker-cessation counseling when able
#DVT prophylaxis-Lovenox
#Full code
CW IV abx regimen per ID
Medically stable for DC
Ongoing dispo efforts
Anticipated Discharge: > 48 hours
Subjective/Interval History
-
Date of Service: May 24, 2025
No overnight events.
Voices no specific complaints.
Tolerating diet.
Denies shortness of breath.
Objective Data
-
Labs:
Laboratory Results
05/24/25
09:01
WBC 13.3 H
Hgb 9.0 L
Hct 28.7 L
Plt Count 249
Sodium 132 L
Potassium 4.6
Chloride 97 L
Carbon Dioxide 33 H
BUN 26 H
Creatinine 0.6 L
Glucose 159 H
Calcium 8.6
Vital Signs:
Vital Signs
Temp Pulse Resp BP Pulse Ox
97.4 F 88 18 117/58 94
05/24/25 07:53 05/24/25 07:53 05/24/25 07:53 05/24/25 08:13 05/24/25 07:53
I&O
05/23/25 05/24/25 05/25/25
06:59 06:59 06:59
Intake Total 1710 / 1710 1680 / 1680
Output Total 1675 / 1675 1900 / 1900
Balance 35 / 35 -220 / -220
Physical Exam
-
General: Comfortable; Negative Respiratory Distress
Respiratory: Non Labored Respirations; Negative Accessory Resp Muscle Use
Cardiac: Regular Rhythm and S1/S2; Negative Tachycardic
Neuro: AO x 3
Psych: Calm; Negative Confused
Data Reviewed
-
Labs: Labs Reviewed by me
[2025-05-24] MEDS: CUBICIN 130 MG IV (14:17)
[2025-05-24] MEDS: DESENEX/MITRAZOL/ZEASORB 1 APPLIC TOPICAL ×2 (15:15→21:25)
[2025-05-24] MEDS: HYDROPHOR 1 APPLIC TOPICAL (15:15)
[2025-05-24] MEDS: DAKIN'S SOLUTION 0.125% 1/4 STRENGTH 473 ML TOPICAL (15:15)
[2025-05-24 15:53] VITALS: BP 130/56
--- NOTE | 2025-05-24 16:23 | PTCARENOTE ---
pt consistently c/o 9/10 right knee pain, requests PRN Oxycodone 20mgs and 10mgs doses and is asleep afterwards. tolerating diet, turns with assist x2, refusing b/l le jess wraps as ordered, vss, will continue to monitor.
[2025-05-24] MEDS: LOVENOX 40 MG SC (17:09)
--- NOTE | 2025-05-24 17:23 | PTCARENOTE ---
patient refusing turning [id number], reinforced benefits of turning and repositioning q2hrs, will continue to monitor.
[2025-05-24] MEDS: COLACE 100 MG PO (21:18)
[2025-05-24] MEDS: SENOKOT 8.6 MG PO (21:18)
[2025-05-24 23:06] VITALS: BP 156/75
[2025-05-25] MEDS: ROXICODONE 10 MG PO ×3 (02:32→21:20)
[2025-05-25] MEDS: ROXICODONE 20 MG PO ×5 (03:56→23:34)
[2025-05-25 06:00] VITALS: BMI 33.1
[2025-05-25 07:00] VITALS: BP 163/93
[2025-05-25] MEDS: MYCOSTATIN ORAL SUSPENSION 5 ML PO ×4 (08:46→21:15)
[2025-05-25] MEDS: ALDACTONE 50 MG PO (08:46)
[2025-05-25] MEDS: COZAAR 100 MG PO (08:47)
[2025-05-25] MEDS: PROTONIX 40 MG PO (08:47)
[2025-05-25] MEDS: CATAPRES 0.2 MG PO ×2 (08:47→21:20)
[2025-05-25] MEDS: COREG 25 MG PO ×2 (08:47→21:16)
[2025-05-25] MEDS: HYDROPHOR 1 APPLIC TOPICAL (08:48)
[2025-05-25] MEDS: DRISDOL (VITAMIN D2) 50000 UNITS PO (08:50)
[2025-05-25] MEDS: DESENEX/MITRAZOL/ZEASORB 1 APPLIC TOPICAL ×2 (08:51→21:21)
[2025-05-25] MEDS: SENOKOT PO ×2 (08:52→21:22)
[2025-05-25] MEDS: COLACE PO ×2 (08:52→21:21)
[2025-05-25] MEDS: MIRALAX PO (08:52)
[2025-05-25] MEDS: DAKIN'S SOLUTION 0.125% 1/4 STRENGTH 473 ML TOPICAL (08:53)
[2025-05-25] MEDS: ROXICODONE PO (08:53)
[2025-05-25] MEDS: TEFLARO 270 MG IV ×3 (09:14→23:34)
--- NOTE | 2025-05-25 11:32 | W.PN.HOSP.TC ---
Today's Communication/Plan
-
CW IV abx
Ongoing dispo efforts
Assessment / Plan
Assessment / Plan
Mr. Patrice Mera is a 50 yo man with hx polysubstance abuse, prior CVA (thalamic bleed; right hemiplegia), essential HTN, admitted 04/30 with septic shock 2/2 MRSA bacteremia, SINDY with anion gap metabolic acidosis and hypoxemic respiratory failure.
He is found to have septic joint right knee and development of necrotizing fasciitis.
#Acute respiratory failure, VDRF
-patient was intubated on admission for multiple reasons in setting of septic shock, pneumonia, septic emboli
-CTA without PE
-s/p self extubation on 05/05
- Without respiratory distress ; currently on at 1 L of FiO2
-CT Chest -noted with bilateral cavitary nodules -repeat chest CT next week to follow on it
-Methylprednisolone 40 mg IV daily started on 05/11/25 per pulmonary-getting switched to oral prednisone for 5 days-last day 05/20.
-Encouraged to use Acapella or incentive spirometry
#MRSA Bacteremia
Septic Shock - patient was on Levo, Vaso, Epi, Giapreza; remains off pressors
Septic Arthritis Right Knee
Necrotizing Fasciitis right medial thigh and calf
- JEAN 05/06 without e/o vegetation
- Right knee joint aspirate positive for MRSA 05/06
- Exam 05/07 with new concern for necrotizing fasciitis right medial thigh and calf Daily wound care and packing-of the 2 wounds
- Appreciate general surgery and ortho, patient is s/p I&D of necrotizing soft tissue infection and washout right knee on 05/07/25
- 05/07 antibiotics changed to IV Daptomycin Teflaro started on 05/11/2025
- Last positive Blood cultures from 05/09, negative since 05/11/25.
-Blood pressure stable. White count improving -follow for now
#Right second toe infection Gangrene
-Appreciate ID and Podiatry
-Antibiotics as above
-Arterial US with multiphasic waveforms
-Wound care Betadine soaked gauze to toe - change every day
-S/P Right 2nd toe amputation secondary to gangrenous changes with exposed bone 05/09/25
# Acute kidney injury - ATN in setting of septic shock
Metabolic Acidosis Resolved
-Patient briefly required CRRT but could not tolerate long
-Ultrasound of the kidneys without obstruction
-Appreciate Renal
-SINDY now resolved
-Cheng discontinued on 05/06
- Creatinine stable
# Anemia secondary to acute illness. H&H stable
# Thrombocytosis secondary to infection
# Anasarca
# Hypoalbuminemia
# Drug abuse urine drug screen positive for Fentanyl, Benzos, Amphetamines and Methamphetamines
Patient was discharged to a rehab last admission however he stayed there only for 2 days and signed himself out
# Multidrug resistant hypertension-currently blood pressure stable without medicines.
Patient was on Coreg, losartan, clonidine, Aldactone as outpatient.
- Patient back on clonidine, spironolactone, losartan, Coreg.
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 Transferred to [place] . Pt says he was there for 3 months and has weakness of right side and facial droop.
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
*confirmed cannot get MRI here given shunt
#Vitamin D deficiency-continue replacement
#Chronic back pain
#Morbid obesity with a BMI of 35- Weight loss recommended
#History of nephrolithiasis
#Possible sleep apnea-needs outpatient study as OP.
#ADHD
#Hepatic steatosis per prior imaging-outpatient follow-up
#Active smoker-cessation counseling when able
#DVT prophylaxis-Lovenox
#Full code
CW IV abx regimen per ID
Medically stable for DC
Ongoing dispo efforts
Anticipated Discharge: Within 24 hours
Subjective/Interval History
-
Date of Service: May 25, 2025
No overnight events
Denies SOB
Objective Data
-
Vital Signs:
Vital Signs
Temp Pulse Resp BP Pulse Ox
98.0 F 87 18 163/93 92
05/25/25 07:00 05/25/25 08:47 05/25/25 07:00 05/25/25 08:47 05/25/25 07:00
I&O
05/24/25 05/25/25 05/26/25
06:59 06:59 06:59
Intake Total 1680 / 1680 1939 / 1939
Output Total 1899 / 1899
Balance -220 / -220 40 / 40
Physical Exam
-
General: No Apparent Distress
Respiratory: Non Labored Respirations; Negative Accessory Resp Muscle Use
Cardiac: Regular Rhythm and S1/S2; Negative Tachycardic
Neuro: AO x 3
Psych: Calm
[2025-05-25] MEDS: CUBICIN 130 MG IV (13:33)
[2025-05-25 15:00] VITALS: BP 146/78
[2025-05-25] MEDS: LOVENOX 40 MG SC (17:06)
[2025-05-25 23:00] VITALS: BP 151/81
[2025-05-26] MEDS: ROXICODONE 10 MG PO ×2 (01:25→12:16)
[2025-05-26] MEDS: ROXICODONE 20 MG PO ×5 (03:36→21:09)
[2025-05-26 07:00] VITALS: BP 147/88
[2025-05-26] MEDS: TEFLARO 270 MG IV ×2 (08:46→17:06)
[2025-05-26] MEDS: COZAAR 100 MG PO (08:46)
[2025-05-26] MEDS: MYCOSTATIN ORAL SUSPENSION 5 ML PO ×4 (08:46→21:11)
[2025-05-26] MEDS: SENOKOT PO ×2 (08:47→21:11)
[2025-05-26] MEDS: MIRALAX PO (08:47)
[2025-05-26] MEDS: CATAPRES 0.2 MG PO ×2 (08:47→21:10)
[2025-05-26] MEDS: PROTONIX 40 MG PO (08:47)
[2025-05-26] MEDS: COREG 25 MG PO ×2 (08:47→21:10)
[2025-05-26] MEDS: ALDACTONE 50 MG PO (08:47)
[2025-05-26] MEDS: COLACE PO ×2 (08:47→21:10)
[2025-05-26] MEDS: HYDROPHOR 1 APPLIC TOPICAL (08:50)
[2025-05-26] MEDS: DESENEX/MITRAZOL/ZEASORB 1 APPLIC TOPICAL ×2 (08:50→21:10)
[2025-05-26] MEDS: DAKIN'S SOLUTION 0.125% 1/4 STRENGTH 473 ML TOPICAL (08:50)
[2025-05-26 10:37] LABS: Hematocrit 27.9 % (39.0-52.0); Hemoglobin 8.8 g/dL (13.0-18.0); Mean Corp Hgb Conc. 31.5 g/dL (33.0-37.0); Mean Corpuscular Volume 88.6 fL (80.0-94.0); Nucleated Red Blood Cells % 0 % (-); Platelet Count 282 10^3/uL (130-400); Red Cell Dist. Width 16.7 % (11.5-14.5)
[2025-05-26 11:31] LABS: Blood Urea Nitrogen 16 mg/dl (9-20); Calcium 8.6 mg/dl (8.4-10.2); Carbon Dioxide 36 mmol/L (22-30); Chloride 94 mmol/L (98-107); Estimated Creatinine Clearance > 125 ml/min; Glucose 142 mg/dl (70-99); Potassium 4.3 mmol/L (3.5-5.1); Sodium 134 mmol/L (135-145); eGFR > 60.00
[2025-05-26] MEDS: CUBICIN 130 MG IV (13:19)
--- NOTE | 2025-05-26 13:26 | W.PN.ID1 ---
Date of Service
Date of Service: May 26, 2025
Today's Communication
Continue current antibiotics.
Assessment / Plan
Sustained (04/30 - 05/09) complicated MRSA bacteremia
- Blood cultures clear as of 05/11/2025
Pulmonary septic emboli
Cavitary MRSA PNA
Septic arthritis - right knee; s/p washout
Right thigh & calf necrotizing soft tissue infection
Right second toe infection/gangrene/osteomyelitis; s/p amputation
Fever -resolving
Leukocytosis -stable
s/p Hypoxemic respiratory failure, self extubated 05/05
SINDY; resolved
Substance abuse (UDS with fentanyl, amphetamine, methamphetamine, benzodiazepine)
Hx CVA (thalamic bleed) with right hemiplegia
Chronic back pain
Recommendations:
05/01/20 TTE without valvular disease.
05/06/25 JEAN: NO VALVULAR VEGETATION
Sputum cx MRSA
Blood cx's negative
05/06 R knee fluid: 41,220 WBC, 54% polys, neg crystals.
Synovial cx : MRSA
05/07/25 - s/p washout of R knee (+PUS). Cx MRSA
05/07/25 - s/p I+D right thigh and calf. Cx MRSA
05/09/25 s/p R 2nd toe amputation
Continue Daptomycin IV (d#19).
- Monitor CK closely while on Dapto
Continue ceftaroline (d#15)
Follow WBC count, platelets, CPK, temperature, O2 requirements.
White count stable today. Continuing to follow.
Last chest CT on 05/11/2025.
Repeat chest CT to follow prior abnormalities (infiltrates, septic emboli, cavitary lesions)
����������������������������������������������������������
Chief Complaint
-: Clinical Sepsis, Pneumonia and Bacteremia
Subjective / Review of Systems
Review of Systems: No Fever, No Chills, Cough and Sputum Production (brownish)
Vital Signs / Physical Exam
Vital Signs
Vital Signs
Temp Pulse Resp BP Pulse Ox
97.9 F 73 20 147/88 92
05/26/25 07:00 05/26/25 08:46 05/26/25 07:00 05/26/25 08:46 05/26/25 11:26
Physical Exam
Constitutional: No Acute Distress, Comfortable, Chronically Ill and Non-toxic
Eyes: Sclera Anicteric
Cardiovascular: Regular Rate and S1/S2; Negative S3/S4
Pulmonary: Non Labored; Negative Rhonchi
Gastrointestinal: Soft, Non Tender and Normal Bowel Sounds
Extremities: Edema and Venous Insufficiency
Wound: Other (Knee wound; dressing intact. Right thigh wounds with intact dressing. Right foot dressing intact.)
Neurological: Awake and Alert
Objective Data
Lab Data
Lab Results
05/26/25 09:56
05/26/25 09:54
PT 20.0 Sec (11.4-14.6) H 04/30/25 19:46
INR 1.65 04/30/25 19:46
APTT Cancelled 05/04/25 14:45
Estimated Creat Clear > 125 ml/min 05/26/25 09:54
Lactic Acid 1.9 mmol/L (0.7-2.0) 05/01/25 12:18
Total Bilirubin 0.8 mg/dl (0.2-1.3) 05/22/25 05:07
AST 15 U/L (17-59) L 05/22/25 05:07
ALT 22 U/L (0-50) 05/22/25 05:07
Alkaline Phosphatase 119 U/L (38-126) 05/22/25 05:07
Most recent labs reviewed.
Micro Results:
05/16/25 04:52 Blood Culture - Final
Blood/Venous No Growth - Final Report
05/15/25 05:39 Blood Culture - Final
Blood/Venous No Growth - Final Report
05/14/25 03:20 Blood Culture - Final
Blood/Venous No Growth - Final Report
05/13/25 09:45 Blood Culture - Final
Blood/Venous No Growth - Final Report
05/12/25 05:34 Blood Culture - Final
Blood/Venous No Growth - Final Report
05/11/25 12:40 Blood Culture - Final
Blood/Venous No Growth - Final Report
05/09/25 04:01 Blood Culture - Final
Blood/Venous Staph aureus MRSA
Gram Stain - Final
05/08/25 04:21 Blood Culture - Final
Blood/Venous Staph aureus MRSA
Gram Stain - Final
05/07/25 04:55 Blood Culture - Final
Blood/Venous Staph aureus MRSA
Gram Stain - Final
05/06/25 08:16 Blood Culture - Final
Blood/Venous Staph aureus MRSA
Gram Stain - Final
05/07/25 18:35 Wound Culture - Final
Knee - Right Staph aureus MRSA
Gram Stain - Final
05/07/25 18:35 Anaerobic Culture - Final
Knee - Right NO ANAEROBES ISOLATED
05/07/25 18:35 Wound Culture - Final
Leg - Right Staph aureus MRSA
Gram Stain - Final
05/07/25 18:35 Anaerobic Culture - Final
Leg - Right NO ANAEROBES ISOLATED
05/05/25 03:34 Blood Culture - Final
Blood/Venous No Growth - Final Report
05/03/25 04:25 Blood Culture - Final
Blood/Venous Staph aureus MRSA
Gram Stain - Final
05/02/25 03:16 Blood Culture - Final
Blood/Venous Staph aureus MRSA
Gram Stain - Final
05/04/25 03:13 Blood Culture - Final
Blood/Venous No Growth - Final Report
05/06/25 13:19 Body Fluid Culture - Final
Synovial Fluid Staph aureus MRSA
Gram Stain - Final
04/30/25 19:46 Blood Culture - Final
Blood/Venous Staph aureus MRSA
Gram Stain - Final
05/04/25 09:25 Respiratory Culture - Final
Endotracheal Staph aureus MRSA
Gram Stain - Final
05/01/25 17:45 Blood Culture - Final
Blood/Venous Staph aureus MRSA
Gram Stain - Final
04/30/25 19:46 Blood Culture - Final
Blood/Venous Staph aureus MRSA
Gram Stain - Final
05/01/25 01:32 Urine Culture - Final
Urine Yeast
05/01/25 01:17 Blood Parasites Smear - Final
Blood/Venous
04/30/25 23:02 Influenza Types A & B (GIORGIO) - Final
Nasal Swab Negative for Influenza A & B, NAAT
Negative results must be combined with clinical observations
and patient history.
Nucleic Acid Amplification test (NAAT)performed on the
[email or web address] platform.
Imaging:
05/16/2025 CXR (portable): extensive heterogeneous opacities bilaterally. A 6.2 cm cavitary right lower lobe lesion again noted. No pneumothorax or pleural effusion. Mild cardiac enlargement.
05/12/2025 CXR (portable): improved aeration of the right upper lung compared to prior days imaging. Otherwise, extensive diffuse bilateral patchy, nodular and confluent airspace opacities.
05/02/25 CT RLE: Subcutaneous stranding within the soft tissues of the anterior right thigh, and [id number] anterior soft tissues. No drainable abscess is appreciated. Moderate suprapatellar joint effusion, with areas of loculation.
05/01/2025 ECHO (TTE): EF 55%. Normal biventricular size and systolic function. No significant valvular disease. No obvious vegetations.
05/01/2025 CXR (portable): bilateral interstitial and airspace disease noted which may reflect pulmonary edema or pneumonia. Small bilateral pleural effusions noted. Please see full dictation for additional detail.
05/01/2025 Abdominal x-ray. Enteric tube noted in stomach.
05/01/2025 Renal ultrasound: unremarkable renal ultrasound without hydronephrosis, contour deforming solid renal mass or echogenic shadowing foci to suggest renal calculi. Bilateral pleural effusions noted.
05/01/2025 Duplex ultrasound lower extremity: no evidence of DVT in the bilateral lower extremities
04/30/2025 X-ray right foot: soft tissue injury versus ulceration involving the second digit with soft tissue swelling. The cortex of the distal phalanx is indistinct and the possibility of osteomyelitis cannot be excluded. There is soft tissue
swelling of the first digit. No radiographic evidence to suggest osteomyelitis. Please see full dictation for additional detail.
--- NOTE | 2025-05-26 14:10 | W.PN.HOSP.TC ---
Today's Communication/Plan
-
Antibiotics. Discharge planning
Assessment / Plan
Assessment / Plan
Physical exam:
General: Chronically ill
HEENT: Normocephalic, Atraumatic and Moist Mucous Membranes
Respiratory: Clear to Auscultation; Negative Wheezes, Rales or Rhonchi
Cardiac: Regular Rhythm and S1/S2
GI: Soft, Nontender and Nondistended
Musculoskeletal: No Clubbing, No Cyanosis and No Edema. Wound feet dressings.
Neuro: Awake, Alert and Oriented, no neurological deficit
Psych: Calm
A/P:
Mr. Patrice Mera is a 50 yo man with hx polysubstance abuse, prior CVA (thalamic bleed; right hemiplegia), essential HTN, admitted 04/30 with septic shock 2/2 MRSA bacteremia, SINDY with anion gap metabolic acidosis and hypoxemic respiratory failure.
He is found to have septic joint right knee and development of necrotizing fasciitis.
#Acute respiratory failure, VDRF
-patient was intubated on admission for multiple reasons in setting of septic shock, pneumonia, septic emboli
-CTA without PE
-s/p self extubation on 05/05
- Without respiratory distress ; currently on at 1 L of FiO2
-CT Chest -noted with bilateral cavitary nodules -repeat chest CT next week to follow on it
-Methylprednisolone 40 mg IV daily started on 05/11/25 per pulmonary-getting switched to oral prednisone for 5 days-last day 05/20.
-Encouraged to use Acapella or incentive spirometry
#MRSA Bacteremia
Septic Shock - patient was on Levo, Vaso, Epi, Giapreza; remains off pressors
Septic Arthritis Right Knee
Necrotizing Fasciitis right medial thigh and calf
- JEAN 05/06 without e/o vegetation
- Right knee joint aspirate positive for MRSA 05/06
- Exam 05/07 with new concern for necrotizing fasciitis right medial thigh and calf Daily wound care and packing-of the 2 wounds
- Appreciate general surgery and ortho, patient is s/p I&D of necrotizing soft tissue infection and washout right knee on 05/07/25
- 05/07 antibiotics changed to IV Daptomycin Teflaro started on 05/11/2025
- Last positive Blood cultures from 05/09, negative since 05/11/25.
-Blood pressure stable. White count improving -follow for now
#Right second toe infection Gangrene
-Appreciate ID and Podiatry
-Antibiotics as above
-Arterial US with multiphasic waveforms
-Wound care Betadine soaked gauze to toe - change every day
-S/P Right 2nd toe amputation secondary to gangrenous changes with exposed bone 05/09/25
# Acute kidney injury - ATN in setting of septic shock
Metabolic Acidosis Resolved
-Patient briefly required CRRT but could not tolerate long
-Ultrasound of the kidneys without obstruction
-Appreciate Renal
-SINDY now resolved
-Cheng discontinued on 05/06
- Creatinine stable
# Anemia secondary to acute illness. H&H stable
# Thrombocytosis secondary to infection
# Anasarca
# Hypoalbuminemia
# Drug abuse urine drug screen positive for Fentanyl, Benzos, Amphetamines and Methamphetamines
Patient was discharged to a rehab last admission however he stayed there only for 2 days and signed himself out
# Multidrug resistant hypertension-currently blood pressure stable without medicines.
Patient was on Coreg, losartan, clonidine, Aldactone as outpatient.
- Patient back on clonidine, spironolactone, losartan, Coreg.
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 Transferred to [place] . Pt says he was there for 3 months and has weakness of right side and facial droop.
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
*confirmed cannot get MRI here given shunt
#Vitamin D deficiency-continue replacement
#Chronic back pain
#Morbid obesity with a BMI of 35- Weight loss recommended
#History of nephrolithiasis
#Possible sleep apnea-needs outpatient study as OP.
#ADHD
#Hepatic steatosis per prior imaging-outpatient follow-up
#Active smoker-cessation counseling when able
#DVT prophylaxis-Lovenox
#Full code
CW IV abx regimen per ID
Medically stable for DC
Ongoing dispo efforts
Anticipated Discharge: 24 - 48 hours
Subjective/Interval History
-
Date of Service: May 26, 2025
No new complaints. Afebrile
Objective Data
-
Labs:
Laboratory Results
05/26/25 05/26/25
09:54 09:56
WBC 10.8
Hgb 8.8 L
Hct 27.9 L
Plt Count 282
Sodium 134 L
Potassium 4.3
Chloride 94 L
Carbon Dioxide 36 H
BUN 16
Creatinine 0.5 L
Glucose 142 H
Calcium 8.6
Vital Signs:
Vital Signs
Temp Pulse Resp BP Pulse Ox
97.9 F 73 20 147/88 92
05/26/25 07:00 05/26/25 08:46 05/26/25 07:00 05/26/25 08:46 05/26/25 11:26
I&O
05/25/25 05/26/25 05/27/25
06:59 06:59 06:59
Intake Total 1939 1620 / 1620
Output Total 1899 2900 / 2900
Balance 40 / 40 -1280 / -1280
--- NOTE | 2025-05-26 14:48 | CM ---
Referrals in [facility] for SNF, continue to search for bed
Additional referrals placed
cont on IV antibiotics
PLAN: SNF, continue bed search, will need authorization
[2025-05-26 15:00] VITALS: BP 130/81
[2025-05-26] MEDS: LOVENOX 40 MG SC (17:06)
[2025-05-26 23:43] VITALS: BP 132/73
[2025-05-27] MEDS: TEFLARO 270 MG IV ×3 (00:56→16:52)
[2025-05-27] MEDS: ROXICODONE 20 MG PO ×5 (01:16→19:52)
[2025-05-27 06:00] VITALS: BMI 32.8
[2025-05-27 07:00] VITALS: BP 137/82
[2025-05-27 07:28] LABS: Hematocrit 26.7 % (39.0-52.0); Hemoglobin 8.3 g/dL (13.0-18.0); Mean Corp Hgb Conc. 31.1 g/dL (33.0-37.0); Mean Corpuscular Volume 89.0 fL (80.0-94.0); Nucleated Red Blood Cells % 0 % (-); Platelet Count 294 10^3/uL (130-400); Red Cell Dist. Width 16.3 % (11.5-14.5)
[2025-05-27 07:42] LABS: ALT (SGPT) 14 U/L (0-50); AST (SGOT) 12 U/L (17-59); Albumin 3.0 g/dl (3.5-5.0); Alkaline Phosphatase 117 U/L (38-126); Blood Urea Nitrogen 16 mg/dl (9-20); Calcium 8.9 mg/dl (8.4-10.2); Carbon Dioxide 37 mmol/L (22-30); Chloride 94 mmol/L (98-107); Estimated Creatinine Clearance > 125 ml/min; Glucose 103 mg/dl (70-99); Potassium 4.6 mmol/L (3.5-5.1); Sodium 134 mmol/L (135-145); Total Protein 6.7 g/dl (6.3-8.2); eGFR > 60.00
--- NOTE | 2025-05-27 08:39 | W.PN.HOSP.TC ---
Today's Communication/Plan
-
CT chest. IV Antibiotics. Discharge planning
Assessment / Plan
Assessment / Plan
Physical exam:
General: Chronically ill
HEENT: Normocephalic, Atraumatic and Moist Mucous Membranes
Respiratory: Clear to Auscultation; Negative Wheezes, Rales or Rhonchi
Cardiac: Regular Rhythm and S1/S2
GI: Soft, Nontender and Nondistended
Musculoskeletal: No Clubbing, No Cyanosis and No Edema. Wound feet dressings.
Neuro: Awake, Alert and Oriented, no neurological deficit
Psych: Calm
A/P:
Mr. Patrice Mera is a 50 yo man with hx polysubstance abuse, prior CVA (thalamic bleed; right hemiplegia), essential HTN, admitted 04/30 with septic shock 2/2 MRSA bacteremia, SINDY with anion gap metabolic acidosis and hypoxemic respiratory failure.
He is found to have septic joint right knee and development of necrotizing fasciitis.
#Acute respiratory failure, VDRF
-patient was intubated on admission for multiple reasons in setting of septic shock, pneumonia, septic emboli
-CTA without PE
-s/p self extubation on 05/05
- Without respiratory distress ; currently on at 1 L of FiO2
-CT Chest -noted with bilateral cavitary nodules -repeat chest CT next week to follow on it
-Methylprednisolone 40 mg IV daily started on 05/11/25 per pulmonary-getting switched to oral prednisone for 5 days-last day 05/20.
-Encouraged to use Acapella or incentive spirometry
#MRSA Bacteremia
Septic Shock - patient was on Levo, Vaso, Epi, Giapreza; remains off pressors
Septic Arthritis Right Knee
Necrotizing Fasciitis right medial thigh and calf
- JEAN 05/06 without e/o vegetation
- Right knee joint aspirate positive for MRSA 05/06
- Exam 05/07 with new concern for necrotizing fasciitis right medial thigh and calf Daily wound care and packing-of the 2 wounds
- Appreciate general surgery and ortho, patient is s/p I&D of necrotizing soft tissue infection and washout right knee on 05/07/25
- 05/07 antibiotics changed to IV Daptomycin Teflaro started on 05/11/2025
- Last positive Blood cultures from 05/09, negative since 05/11/25.
-Blood pressure stable. White count improving -follow for now
#Right second toe infection Gangrene
-Appreciate ID and Podiatry
-Antibiotics as above
-Arterial US with multiphasic waveforms
-Wound care Betadine soaked gauze to toe - change every day
-S/P Right 2nd toe amputation secondary to gangrenous changes with exposed bone 05/09/25
# Acute kidney injury - ATN in setting of septic shock
Metabolic Acidosis Resolved
-Patient briefly required CRRT but could not tolerate long
-Ultrasound of the kidneys without obstruction
-Appreciate Renal
-SINDY now resolved
-Cheng discontinued on 05/06
- Creatinine stable
# Anemia secondary to acute illness. H&H stable
# Thrombocytosis secondary to infection
# Anasarca
# Hypoalbuminemia
# Drug abuse urine drug screen positive for Fentanyl, Benzos, Amphetamines and Methamphetamines
Patient was discharged to a rehab last admission however he stayed there only for 2 days and signed himself out
# Multidrug resistant hypertension-currently blood pressure stable without medicines.
Patient was on Coreg, losartan, clonidine, Aldactone as outpatient.
- Patient back on clonidine, spironolactone, losartan, Coreg.
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 Transferred to [place] . Pt says he was there for 3 months and has weakness of right side and facial droop.
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
*confirmed cannot get MRI here given shunt
#Vitamin D deficiency-continue replacement
#Chronic back pain
#Morbid obesity with a BMI of 35- Weight loss recommended
#History of nephrolithiasis
#Possible sleep apnea-needs outpatient study as OP.
#ADHD
#Hepatic steatosis per prior imaging-outpatient follow-up
#Active smoker-cessation counseling when able
#DVT prophylaxis-Lovenox
#Full code
CW IV abx regimen per ID
Medically stable for DC
Ongoing dispo efforts
Time spent 35 minutes
Anticipated Discharge: 24 - 48 hours
Subjective/Interval History
-
Date of Service: May 27, 2025
Patient alert. Afebrile. On 1 L of oxygen. No chest pain or worsening shortness of breath.
Objective Data
-
Labs:
Laboratory Results
05/27/25
06:12
WBC 9.9
Hgb 8.3 L
Hct 26.7 L
Plt Count 294
Sodium 134 L
Potassium 4.6
Chloride 94 L
Carbon Dioxide 37 H
BUN 16
Creatinine 0.6 L
Glucose 103 H
Calcium 8.9
Total Bilirubin 0.5
AST 12 L
ALT 14
Alkaline Phosphatase 117
Vital Signs:
Vital Signs
Temp Pulse Resp BP Pulse Ox
98.0 F 86 20 137/82 94
05/27/25 07:00 05/27/25 07:00 05/27/25 07:00 05/27/25 07:00 05/27/25 07:00
I&O
05/26/25 05/27/25 05/28/25
06:59 06:59 06:59
Intake Total 1620 / 1620 1200 / 1200
Output Total 2900 / 2900 1000 / 1000
Balance -1280 / -1280 200 / 200
[2025-05-27] MEDS: COZAAR 100 MG PO (08:52)
[2025-05-27] MEDS: ALDACTONE 50 MG PO (08:52)
[2025-05-27] MEDS: PROTONIX 40 MG PO (08:52)
[2025-05-27] MEDS: COREG 25 MG PO ×2 (08:52→21:49)
[2025-05-27] MEDS: MYCOSTATIN ORAL SUSPENSION 5 ML PO ×4 (08:52→21:49)
[2025-05-27] MEDS: CATAPRES 0.2 MG PO ×2 (08:53→21:49)
[2025-05-27] MEDS: DESENEX/MITRAZOL/ZEASORB 1 APPLIC TOPICAL ×2 (08:54→21:49)
[2025-05-27] MEDS: COLACE PO ×2 (08:54→21:50)
[2025-05-27] MEDS: HYDROPHOR 1 APPLIC TOPICAL (08:54)
[2025-05-27] MEDS: DAKIN'S SOLUTION 0.125% 1/4 STRENGTH 473 ML TOPICAL (08:54)
[2025-05-27] MEDS: MIRALAX PO (08:54)
[2025-05-27] MEDS: SENOKOT PO ×2 (08:55→21:49)
[2025-05-27 12:16] VITALS: BP 129/68; PULSE 83; O2SAT 92
--- NOTE | 2025-05-27 12:46 | W.PN.ID1 ---
Date of Service
Date of Service: May 27, 2025
Today's Communication
Continue current antibiotics.
Assessment / Plan
Sustained (04/30 - 05/09) complicated MRSA bacteremia
- Blood cultures clear as of 05/11/2025
Pulmonary septic emboli
Cavitary MRSA PNA
Septic arthritis - right knee; s/p washout
Right thigh & calf necrotizing soft tissue infection
Right second toe infection/gangrene/osteomyelitis; s/p amputation
Fever -resolving
Leukocytosis -stable
s/p Hypoxemic respiratory failure, self extubated 05/05
SINDY; resolved
Substance abuse (UDS with fentanyl, amphetamine, methamphetamine, benzodiazepine)
Hx CVA (thalamic bleed) with right hemiplegia
Chronic back pain
Recommendations:
05/01/20 TTE without valvular disease.
05/06/25 JEAN: NO VALVULAR VEGETATION
Sputum cx MRSA
Blood cx's negative
05/06 R knee fluid: 41,220 WBC, 54% polys, neg crystals.
Synovial cx : MRSA
05/07/25 - s/p washout of R knee (+PUS). Cx MRSA
05/07/25 - s/p I+D right thigh and calf. Cx MRSA
05/09/25 s/p R 2nd toe amputation
Continue Daptomycin IV (d#19).
- Monitor CK closely while on Dapto
Continue ceftaroline (d#15)
Follow WBC count, platelets, CPK, temperature, O2 requirements.
White count stable today. Continuing to follow.
Last chest CT on 05/11/2025. Repeat CT today pending to follow prior abnormalities (infiltrates, septic emboli, cavitary lesions)
����������������������������������������������������������
Chief Complaint
-: Clinical Sepsis, Pneumonia and Bacteremia
Subjective / Review of Systems
Review of Systems: No Fever, No Chills, Cough, Sputum Production and No Chest Pain
Vital Signs / Physical Exam
Vital Signs
Vital Signs
Temp Pulse Resp BP Pulse Ox
98.0 F 86 20 137/82 94
05/27/25 07:00 05/27/25 07:00 05/27/25 07:00 05/27/25 07:00 05/27/25 07:00
Physical Exam
Constitutional: No Acute Distress, Comfortable, Chronically Ill and Non-toxic
Eyes: Sclera Anicteric
Cardiovascular: Regular Rate and S1/S2; Negative S3/S4
Pulmonary: Non Labored; Negative Rhonchi
Gastrointestinal: Soft, Non Tender and Normal Bowel Sounds
Extremities: Edema and Venous Insufficiency
Wound: Other (Knee wound; dressing intact. Right thigh wounds with intact dressing. Right foot dressing intact.)
Neurological: Awake and Alert
Objective Data
Lab Data
Lab Results
05/27/25 06:12
05/27/25 06:12
PT 20.0 Sec (11.4-14.6) H 04/30/25 19:46
INR 1.65 04/30/25 19:46
APTT Cancelled 05/04/25 14:45
Estimated Creat Clear > 125 ml/min 05/27/25 06:12
Lactic Acid 1.9 mmol/L (0.7-2.0) 05/01/25 12:18
Total Bilirubin 0.5 mg/dl (0.2-1.3) 05/27/25 06:12
AST 12 U/L (17-59) L 05/27/25 06:12
ALT 14 U/L (0-50) 05/27/25 06:12
Alkaline Phosphatase 117 U/L (38-126) 05/27/25 06:12
Most recent labs reviewed.
Micro Results:
05/16/25 04:52 Blood Culture - Final
Blood/Venous No Growth - Final Report
05/15/25 05:39 Blood Culture - Final
Blood/Venous No Growth - Final Report
05/14/25 03:20 Blood Culture - Final
Blood/Venous No Growth - Final Report
05/13/25 09:45 Blood Culture - Final
Blood/Venous No Growth - Final Report
05/12/25 05:34 Blood Culture - Final
Blood/Venous No Growth - Final Report
05/11/25 12:40 Blood Culture - Final
Blood/Venous No Growth - Final Report
05/09/25 04:01 Blood Culture - Final
Blood/Venous Staph aureus MRSA
Gram Stain - Final
05/08/25 04:21 Blood Culture - Final
Blood/Venous Staph aureus MRSA
Gram Stain - Final
05/07/25 04:55 Blood Culture - Final
Blood/Venous Staph aureus MRSA
Gram Stain - Final
05/06/25 08:16 Blood Culture - Final
Blood/Venous Staph aureus MRSA
Gram Stain - Final
05/07/25 18:35 Wound Culture - Final
Knee - Right Staph aureus MRSA
Gram Stain - Final
05/07/25 18:35 Anaerobic Culture - Final
Knee - Right NO ANAEROBES ISOLATED
05/07/25 18:35 Wound Culture - Final
Leg - Right Staph aureus MRSA
Gram Stain - Final
05/07/25 18:35 Anaerobic Culture - Final
Leg - Right NO ANAEROBES ISOLATED
05/05/25 03:34 Blood Culture - Final
Blood/Venous No Growth - Final Report
05/03/25 04:25 Blood Culture - Final
Blood/Venous Staph aureus MRSA
Gram Stain - Final
05/02/25 03:16 Blood Culture - Final
Blood/Venous Staph aureus MRSA
Gram Stain - Final
05/04/25 03:13 Blood Culture - Final
Blood/Venous No Growth - Final Report
05/06/25 13:19 Body Fluid Culture - Final
Synovial Fluid Staph aureus MRSA
Gram Stain - Final
04/30/25 19:46 Blood Culture - Final
Blood/Venous Staph aureus MRSA
Gram Stain - Final
05/04/25 09:25 Respiratory Culture - Final
Endotracheal Staph aureus MRSA
Gram Stain - Final
05/01/25 17:45 Blood Culture - Final
Blood/Venous Staph aureus MRSA
Gram Stain - Final
04/30/25 19:46 Blood Culture - Final
Blood/Venous Staph aureus MRSA
Gram Stain - Final
05/01/25 01:32 Urine Culture - Final
Urine Yeast
05/01/25 01:17 Blood Parasites Smear - Final
Blood/Venous
04/30/25 23:02 Influenza Types A & B (GIORGIO) - Final
Nasal Swab Negative for Influenza A & B, NAAT
Negative results must be combined with clinical observations
and patient history.
Nucleic Acid Amplification test (NAAT)performed on the
[employer] platform.
Imaging:
05/16/2025 CXR (portable): extensive heterogeneous opacities bilaterally. A 6.2 cm cavitary right lower lobe lesion again noted. No pneumothorax or pleural effusion. Mild cardiac enlargement.
05/12/2025 CXR (portable): improved aeration of the right upper lung compared to prior days imaging. Otherwise, extensive diffuse bilateral patchy, nodular and confluent airspace opacities.
05/02/25 CT RLE: Subcutaneous stranding within the soft tissues of the anterior right thigh, and [id number] anterior soft tissues. No drainable abscess is appreciated. Moderate suprapatellar joint effusion, with areas of loculation.
05/01/2025 ECHO (TTE): EF 55%. Normal biventricular size and systolic function. No significant valvular disease. No obvious vegetations.
05/01/2025 CXR (portable): bilateral interstitial and airspace disease noted which may reflect pulmonary edema or pneumonia. Small bilateral pleural effusions noted. Please see full dictation for additional detail.
05/01/2025 Abdominal x-ray. Enteric tube noted in stomach.
05/01/2025 Renal ultrasound: unremarkable renal ultrasound without hydronephrosis, contour deforming solid renal mass or echogenic shadowing foci to suggest renal calculi. Bilateral pleural effusions noted.
05/01/2025 Duplex ultrasound lower extremity: no evidence of DVT in the bilateral lower extremities
04/30/2025 X-ray right foot: soft tissue injury versus ulceration involving the second digit with soft tissue swelling. The cortex of the distal phalanx is indistinct and the possibility of osteomyelitis cannot be excluded. There is soft tissue
swelling of the first digit. No radiographic evidence to suggest osteomyelitis. Please see full dictation for additional detail.
[2025-05-27] MEDS: CUBICIN 130 MG IV (13:33)
[2025-05-27 15:00] VITALS: BP 149/80
[2025-05-27] MEDS: ROXICODONE 10 MG PO (16:55)
[2025-05-27] MEDS: LOVENOX 40 MG SC (16:59)
[2025-05-27 23:55] VITALS: BP 127/79
[2025-05-28] MEDS: TEFLARO 270 MG IV ×3 (00:07→16:12)
[2025-05-28] MEDS: ROXICODONE 20 MG PO ×2 (00:07→05:47)
[2025-05-28 05:55] VITALS: BMI 32.9
[2025-05-28 06:50] LABS: Hematocrit 26.8 % (39.0-52.0); Hemoglobin 8.6 g/dL (13.0-18.0); Mean Corp Hgb Conc. 32.1 g/dL (33.0-37.0); Mean Corpuscular Volume 87.0 fL (80.0-94.0); Platelet Count 299 10^3/uL (130-400); Red Cell Dist. Width 16.1 % (11.5-14.5)
[2025-05-28 07:07] LABS: Blood Urea Nitrogen 15 mg/dl (9-20); Calcium 9.1 mg/dl (8.4-10.2); Carbon Dioxide 35 mmol/L (22-30); Chloride 95 mmol/L (98-107); Estimated Creatinine Clearance > 125 ml/min; Glucose 106 mg/dl (70-99); Potassium 4.3 mmol/L (3.5-5.1); Sodium 134 mmol/L (135-145); eGFR > 60.00
[2025-05-28 07:30] VITALS: BP 123/73
[2025-05-28] MEDS: COLACE PO ×2 (07:35→20:46)
[2025-05-28] MEDS: MIRALAX PO (07:35)
[2025-05-28] MEDS: SENOKOT PO ×2 (07:35→20:46)
[2025-05-28] MEDS: ALDACTONE 50 MG PO (08:18)
[2025-05-28] MEDS: CATAPRES 0.2 MG PO ×2 (08:18→20:49)
[2025-05-28] MEDS: MYCOSTATIN ORAL SUSPENSION 5 ML PO ×4 (08:18→22:47)
[2025-05-28] MEDS: COZAAR 100 MG PO (08:18)
[2025-05-28] MEDS: COREG 25 MG PO ×2 (08:18→20:45)
[2025-05-28] MEDS: PROTONIX 40 MG PO (08:18)
[2025-05-28] MEDS: DESENEX/MITRAZOL/ZEASORB 1 APPLIC TOPICAL ×2 (08:19→20:50)
[2025-05-28] MEDS: HYDROPHOR 1 APPLIC TOPICAL (08:19)
[2025-05-28] MEDS: DAKIN'S SOLUTION 0.125% 1/4 STRENGTH 473 ML TOPICAL (08:19)
--- NOTE | 2025-05-28 08:33 | W.PN.UPDATE ---
Update Note
Progress Note Update
Right foot toe amputation site well healed with no infection or dehiscence today.
Sutures are removed today. No bandages required. He may return to a sneaker and weight bear as tolerated. No further podiatry care required. follow up as outpatient prn.
--- NOTE | 2025-05-28 09:40 | W.PN.HOSP.TC ---
Today's Communication/Plan
-
Antibiotics. Adjust narcotics and benzodiazepines. Discharge planning
Assessment / Plan
Assessment / Plan
Physical exam:
General: Chronically ill
HEENT: Normocephalic, Atraumatic and Moist Mucous Membranes
Respiratory: Clear to Auscultation; Negative Wheezes, Rales or Rhonchi
Cardiac: Regular Rhythm and S1/S2
GI: Soft, Nontender and Nondistended
Musculoskeletal: No Clubbing, No Cyanosis and No Edema. Wound feet dressings.
Neuro: Awake, Alert and Oriented, no neurological deficit
Psych: Calm
A/P:
Mr. Patrice Mera is a 50 yo man with hx polysubstance abuse, prior CVA (thalamic bleed; right hemiplegia), essential HTN, admitted 04/30 with septic shock 2/2 MRSA bacteremia, SINDY with anion gap metabolic acidosis and hypoxemic respiratory failure.
He is found to have septic joint right knee and development of necrotizing fasciitis.
# Update:
CT scan of the chest shows stability yesterday
Continue antibiotics per ID-on ceftaroline and daptomycin
Decreased oxycodone from 20 to 10 and from 10 to 5 and space out Ativan from q 4 hr to bid as needed
Discussed with director of casework today and discharge planning in progress
#Acute respiratory failure, VDRF
-patient was intubated on admission for multiple reasons in setting of septic shock, pneumonia, septic emboli
-CTA without PE
-s/p self extubation on 05/05
- Without respiratory distress ; currently on at 1 L of FiO2
-CT Chest -noted with bilateral cavitary nodules -repeat chest CT next week to follow on it
-Methylprednisolone 40 mg IV daily started on 05/11/25 per pulmonary-getting switched to oral prednisone for 5 days-last day 05/20.
-Encouraged to use Acapella or incentive spirometry
#MRSA Bacteremia
Septic Shock - patient was on Levo, Vaso, Epi, Giapreza; remains off pressors
Septic Arthritis Right Knee
Necrotizing Fasciitis right medial thigh and calf
- JEAN 05/06 without e/o vegetation
- Right knee joint aspirate positive for MRSA 05/06
- Exam 05/07 with new concern for necrotizing fasciitis right medial thigh and calf Daily wound care and packing-of the 2 wounds
- Appreciate general surgery and ortho, patient is s/p I&D of necrotizing soft tissue infection and washout right knee on 05/07/25
- 05/07 antibiotics changed to IV Daptomycin Teflaro started on 05/11/2025
- Last positive Blood cultures from 05/09, negative since 05/11/25.
-Blood pressure stable. White count improving -follow for now
#Right second toe infection Gangrene
-Appreciate ID and Podiatry
-Antibiotics as above
-Arterial US with multiphasic waveforms
-Wound care Betadine soaked gauze to toe - change every day
-S/P Right 2nd toe amputation secondary to gangrenous changes with exposed bone 05/09/25
# Acute kidney injury - ATN in setting of septic shock
Metabolic Acidosis Resolved
-Patient briefly required CRRT but could not tolerate long
-Ultrasound of the kidneys without obstruction
-Appreciate Renal
-SINDY now resolved
-Cheng discontinued on 05/06
- Creatinine stable
# Anemia secondary to acute illness. H&H stable
# Thrombocytosis secondary to infection
# Anasarca
# Hypoalbuminemia
# Drug abuse urine drug screen positive for Fentanyl, Benzos, Amphetamines and Methamphetamines
Patient was discharged to a rehab last admission however he stayed there only for 2 days and signed himself out
# Multidrug resistant hypertension-currently blood pressure stable without medicines.
Patient was on Coreg, losartan, clonidine, Aldactone as outpatient.
- Patient back on clonidine, spironolactone, losartan, Coreg.
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 Transferred to [place] . Pt says he was there for 3 months and has weakness of right side and facial droop.
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
*confirmed cannot get MRI here given shunt
#Vitamin D deficiency-continue replacement
#Chronic back pain
#Morbid obesity with a BMI of 35- Weight loss recommended
#History of nephrolithiasis
#Possible sleep apnea-needs outpatient study as OP.
#ADHD
#Hepatic steatosis per prior imaging-outpatient follow-up
#Active smoker-cessation counseling when able
#DVT prophylaxis-Lovenox
#Full code
CW IV abx regimen per ID
Medically stable for DC
Ongoing dispo efforts
Time spent 35 minutes
Anticipated Discharge: 24 - 48 hours
Subjective/Interval History
-
Date of Service: May 28, 2025
Patient little bit sleepy today. No chest pain or shortness of breath and afebrile
Objective Data
-
Labs:
Laboratory Results
05/28/25
06:10
WBC 9.7
Hgb 8.6 L
Hct 26.8 L
Plt Count 299
Sodium 134 L
Potassium 4.3
Chloride 95 L
Carbon Dioxide 35 H
BUN 15
Creatinine 0.5 L
Glucose 106 H
Calcium 9.1
Vital Signs:
Vital Signs
Temp Pulse Resp BP Pulse Ox
97.9 F 79 18 123/73 94
05/28/25 07:30 05/28/25 07:30 05/28/25 07:30 05/28/25 07:30 05/28/25 07:30
I&O
05/27/25 05/28/25 05/29/25
06:59 06:59 06:59
Intake Total 1680 / 1680 2280 / 2280
Output Total 2400 / 2400 3400 / 3400
Balance -720 / -720 -1120 / -1120
--- NOTE | 2025-05-28 10:08 | W.PN.ID1 ---
Date of Service
Date of Service: May 28, 2025
Today's Communication
Continue antibiotics per
Assessment / Plan
Sustained (04/30 - 05/09) complicated MRSA bacteremia
- Blood cultures clear as of 05/11/2025
Pulmonary septic emboli
Cavitary MRSA PNA
Septic arthritis - right knee; s/p washout
Right thigh & calf necrotizing soft tissue infection
Right second toe infection/gangrene/osteomyelitis; s/p amputation
Fever -resolving
Leukocytosis -stable
s/p Hypoxemic respiratory failure, self extubated 05/05
SINDY; resolved
Substance abuse (UDS with fentanyl, amphetamine, methamphetamine, benzodiazepine)
Hx CVA (thalamic bleed) with right hemiplegia
Chronic back pain
Recommendations:
05/01/20 TTE without valvular disease.
05/06/25 JEAN: no valvular vegetation noted.
Sputum cx MRSA
Blood cx's negative
05/06 R knee fluid: 41,220 WBC, 54% polys, neg crystals.
Synovial cx : MRSA
05/07/25 - s/p washout of R knee (+PUS). Cx MRSA
05/07/25 - s/p I+D right thigh and calf. Cx MRSA
05/09/25 s/p R 2nd toe amputation
Continue Daptomycin IV (d#20).
- Monitor CK closely while on Dapto
Continue ceftaroline (d#16)
Will need abx at least through 06/22/2025
Follow WBC count, platelets, CPK, temperature, O2 requirements.
White count stable today. Continuing to follow.
����������������������������������������������������������
Chief Complaint
-: Clinical Sepsis, Pneumonia and Bacteremia
Subjective / Review of Systems
Review of Systems: No Fever and No Chills
Vital Signs / Physical Exam
Vital Signs
Vital Signs
Temp Pulse Resp BP Pulse Ox
97.9 F 79 18 123/73 94
05/28/25 07:30 05/28/25 07:30 05/28/25 07:30 05/28/25 07:30 05/28/25 07:30
Physical Exam
Constitutional: No Acute Distress, Comfortable, Chronically Ill and Non-toxic
Eyes: Sclera Anicteric
Cardiovascular: Regular Rate and S1/S2; Negative S3/S4
Pulmonary: Coarse and Non Labored; Negative Rhonchi
Gastrointestinal: Soft, Non Tender and Normal Bowel Sounds
Extremities: Edema and Venous Insufficiency
Wound: Other (Knee wound; dressing intact. Right thigh wounds with intact dressing. Right foot dressing intact.)
Psychological: Calm
Objective Data
Lab Data
Lab Results
05/28/25 06:10
05/28/25 06:10
PT 20.0 Sec (11.4-14.6) H 04/30/25 19:46
INR 1.65 04/30/25 19:46
APTT Cancelled 05/04/25 14:45
Estimated Creat Clear > 125 ml/min 05/28/25 06:10
Lactic Acid 1.9 mmol/L (0.7-2.0) 05/01/25 12:18
Total Bilirubin 0.5 mg/dl (0.2-1.3) 05/27/25 06:12
AST 12 U/L (17-59) L 05/27/25 06:12
ALT 14 U/L (0-50) 05/27/25 06:12
Alkaline Phosphatase 117 U/L (38-126) 05/27/25 06:12
Most recent labs reviewed.
Micro Results:
05/16/25 04:52 Blood Culture - Final
Blood/Venous No Growth - Final Report
05/15/25 05:39 Blood Culture - Final
Blood/Venous No Growth - Final Report
05/14/25 03:20 Blood Culture - Final
Blood/Venous No Growth - Final Report
05/13/25 09:45 Blood Culture - Final
Blood/Venous No Growth - Final Report
05/12/25 05:34 Blood Culture - Final
Blood/Venous No Growth - Final Report
05/11/25 12:40 Blood Culture - Final
Blood/Venous No Growth - Final Report
05/09/25 04:01 Blood Culture - Final
Blood/Venous Staph aureus MRSA
Gram Stain - Final
05/08/25 04:21 Blood Culture - Final
Blood/Venous Staph aureus MRSA
Gram Stain - Final
05/07/25 04:55 Blood Culture - Final
Blood/Venous Staph aureus MRSA
Gram Stain - Final
05/06/25 08:16 Blood Culture - Final
Blood/Venous Staph aureus MRSA
Gram Stain - Final
05/07/25 18:35 Wound Culture - Final
Knee - Right Staph aureus MRSA
Gram Stain - Final
05/07/25 18:35 Anaerobic Culture - Final
Knee - Right NO ANAEROBES ISOLATED
05/07/25 18:35 Wound Culture - Final
Leg - Right Staph aureus MRSA
Gram Stain - Final
05/07/25 18:35 Anaerobic Culture - Final
Leg - Right NO ANAEROBES ISOLATED
05/05/25 03:34 Blood Culture - Final
Blood/Venous No Growth - Final Report
05/03/25 04:25 Blood Culture - Final
Blood/Venous Staph aureus MRSA
Gram Stain - Final
05/02/25 03:16 Blood Culture - Final
Blood/Venous Staph aureus MRSA
Gram Stain - Final
05/04/25 03:13 Blood Culture - Final
Blood/Venous No Growth - Final Report
05/06/25 13:19 Body Fluid Culture - Final
Synovial Fluid Staph aureus MRSA
Gram Stain - Final
04/30/25 19:46 Blood Culture - Final
Blood/Venous Staph aureus MRSA
Gram Stain - Final
05/04/25 09:25 Respiratory Culture - Final
Endotracheal Staph aureus MRSA
Gram Stain - Final
05/01/25 17:45 Blood Culture - Final
Blood/Venous Staph aureus MRSA
Gram Stain - Final
04/30/25 19:46 Blood Culture - Final
Blood/Venous Staph aureus MRSA
Gram Stain - Final
05/01/25 01:32 Urine Culture - Final
Urine Yeast
05/01/25 01:17 Blood Parasites Smear - Final
Blood/Venous
04/30/25 23:02 Influenza Types A & B (GIORGIO) - Final
Nasal Swab Negative for Influenza A & B, NAAT
Negative results must be combined with clinical observations
and patient history.
Nucleic Acid Amplification test (NAAT)performed on the
[employer] platform.
Imaging:
05/27/2025 CT chest without contrast: overall decreased bilateral consolidation. Decreased or unchanged size of bilateral nodules and cavitary lesions, with decreased wall thickening of the cavitary lesions. Small bilateral pleural effusions noted,
decreased on the right and unchanged on the left. No abnormally enlarged mediastinal lymph nodes identified. No pericardial effusion. Please see full dictation for additional detail.
05/16/2025 CXR (portable): extensive heterogeneous opacities bilaterally. A 6.2 cm cavitary right lower lobe lesion again noted. No pneumothorax or pleural effusion. Mild cardiac enlargement.
05/12/2025 CXR (portable): improved aeration of the right upper lung compared to prior days imaging. Otherwise, extensive diffuse bilateral patchy, nodular and confluent airspace opacities.
05/02/25 CT RLE: Subcutaneous stranding within the soft tissues of the anterior right thigh, and [id number] anterior soft tissues. No drainable abscess is appreciated. Moderate suprapatellar joint effusion, with areas of loculation.
05/01/2025 ECHO (TTE): EF 55%. Normal biventricular size and systolic function. No significant valvular disease. No obvious vegetations.
05/01/2025 CXR (portable): bilateral interstitial and airspace disease noted which may reflect pulmonary edema or pneumonia. Small bilateral pleural effusions noted. Please see full dictation for additional detail.
05/01/2025 Abdominal x-ray. Enteric tube noted in stomach.
05/01/2025 Renal ultrasound: unremarkable renal ultrasound without hydronephrosis, contour deforming solid renal mass or echogenic shadowing foci to suggest renal calculi. Bilateral pleural effusions noted.
05/01/2025 Duplex ultrasound lower extremity: no evidence of DVT in the bilateral lower extremities
04/30/2025 X-ray right foot: soft tissue injury versus ulceration involving the second digit with soft tissue swelling. The cortex of the distal phalanx is indistinct and the possibility of osteomyelitis cannot be excluded. There is soft tissue
swelling of the first digit. No radiographic evidence to suggest osteomyelitis. Please see full dictation for additional detail.
CT Scan: Image Reviewed
--- NOTE | 2025-05-28 11:33 | CM ---
Addendum entered by Shirley Gotti 05/28/25 15:30:
Per [facility] accepted, left VM for Amber at [phone].
Addendum entered by Shirley Gotti 05/28/25 15:14:
[facility] declined.
Addendum entered by Shirley Gotti 05/28/25 12:17:
Spoke with Terrie from [facility], originally accepted, but will now need to review with administration.
Addendum entered by Shirley Gotti 05/28/25 11:55:
TCB from [facility] unable to accept due to insurance reimbursement and cost of medications, they would take a loss. Also cannot take since patient had a + toxicology screen on admission.
Original Note:
Chart reviewed.
Per ID note, IV anbx thru at least 06/22/25.
[facility] updated.
Spoke with Lulú from [facility], unable to accept.
Left VM for admissions at [facility].
Spoke with Alexandra from [facility], she is reviewing.
Spoke with Galina from [facility], she is reviewing.
[2025-05-28] MEDS: ROXICODONE 10 MG PO ×2 (13:21→17:26)
[2025-05-28] MEDS: CUBICIN 130 MG IV (14:10)
--- NOTE | 2025-05-28 14:45 | PTCARENOTE ---
Pt refusing wound care. RN educated patient on importance of daily wound care and pt still declined. No current complaints, plan of care ongoing.
[2025-05-28 16:28] VITALS: BP 146/86
[2025-05-28] MEDS: LOVENOX 40 MG SC (17:26)
[2025-05-28] MEDS: ROXICODONE 5 MG PO (20:44)
[2025-05-28] MEDS: ATIVAN 0.5 MG PO (20:46)
[2025-05-28 23:06] VITALS: BP 154/88
[2025-05-29] MEDS: TEFLARO 270 MG IV ×3 (00:45→17:30)
[2025-05-29] MEDS: ROXICODONE 10 MG PO ×4 (04:44→23:18)
[2025-05-29 06:00] VITALS: BMI 32.5
[2025-05-29 06:59] LABS: Hematocrit 28.7 % (39.0-52.0); Hemoglobin 9.1 g/dL (13.0-18.0); Mean Corp Hgb Conc. 31.7 g/dL (33.0-37.0); Mean Corpuscular Volume 86.7 fL (80.0-94.0); Platelet Count 293 10^3/uL (130-400); Red Cell Dist. Width 15.9 % (11.5-14.5)
[2025-05-29 07:43] LABS: Blood Urea Nitrogen 16 mg/dl (9-20); Calcium 9.4 mg/dl (8.4-10.2); Carbon Dioxide 33 mmol/L (22-30); Chloride 98 mmol/L (98-107); Estimated Creatinine Clearance > 125 ml/min; Glucose 104 mg/dl (70-99); Potassium 4.3 mmol/L (3.5-5.1); Sodium 136 mmol/L (135-145); eGFR > 60.00
[2025-05-29 07:45] VITALS: BP 149/91
[2025-05-29] MEDS: COZAAR 100 MG PO (08:10)
[2025-05-29] MEDS: SENOKOT PO ×2 (08:11→21:32)
[2025-05-29] MEDS: ALDACTONE 50 MG PO (08:11)
[2025-05-29] MEDS: COREG 25 MG PO ×2 (08:11→21:31)
[2025-05-29] MEDS: PROTONIX 40 MG PO (08:11)
[2025-05-29] MEDS: CATAPRES 0.2 MG PO ×2 (08:11→21:31)
[2025-05-29] MEDS: MYCOSTATIN ORAL SUSPENSION 5 ML PO ×4 (08:11→21:49)
[2025-05-29] MEDS: MIRALAX PO (08:11)
[2025-05-29] MEDS: COLACE PO ×2 (08:12→21:32)
[2025-05-29] MEDS: DESENEX/MITRAZOL/ZEASORB 1 APPLIC TOPICAL ×2 (08:14→21:31)
[2025-05-29] MEDS: DAKIN'S SOLUTION 0.125% 1/4 STRENGTH 473 ML TOPICAL (08:14)
[2025-05-29] MEDS: HYDROPHOR 1 APPLIC TOPICAL (08:15)
--- NOTE | 2025-05-29 10:47 | W.PN.ID1 ---
Date of Service
Date of Service: May 29, 2025
Today's Communication
Continue antibiotics
Assessment / Plan
Sustained (04/30 - 05/09) complicated MRSA bacteremia
- Blood cultures clear as of 05/11/2025
Pulmonary septic emboli
Cavitary MRSA PNA
Septic arthritis - right knee; s/p washout
Right thigh & calf necrotizing soft tissue infection
Right second toe infection/gangrene/osteomyelitis; s/p amputation
Fever -resolving
Leukocytosis -stable
s/p Hypoxemic respiratory failure, self extubated 05/05
SINDY; resolved
Substance abuse (UDS with fentanyl, amphetamine, methamphetamine, benzodiazepine)
Hx CVA (thalamic bleed) with right hemiplegia
Chronic back pain
Recommendations:
05/01/20 ECHO (TTE) without valvular disease. 05/06/25 ECHO (JEAN): no valvular vegetation noted.
Sputum cx: MRSA
Blood cx's negative
05/06 R knee fluid: 41,220 WBC, 54% polys, neg crystals.
Synovial cx : MRSA
05/07/25 - s/p washout of R knee (+PUS). Cx MRSA
05/07/25 - s/p I+D right thigh and calf. Cx MRSA
05/09/25 s/p R 2nd toe amputation
Continue Daptomycin IV (d#21).
- Monitor CK closely while on Dapto
Continue ceftaroline (d#17)
Continue abx at least through 06/22/2025
Follow WBC count, platelets, CPK, temperature, O2 requirements.
White count stable today. Continuing to follow.
����������������������������������������������������������
Chief Complaint
-: Clinical Sepsis, Pneumonia and Bacteremia
Subjective / Review of Systems
Review of Systems: No Fever, Cough and Sputum Production
Vital Signs / Physical Exam
Vital Signs
Vital Signs
Temp Pulse Resp BP Pulse Ox
97.6 F 83 15 149/91 95
05/29/25 07:45 05/29/25 08:10 05/29/25 07:45 05/29/25 08:10 05/29/25 07:45
Physical Exam
Constitutional: No Acute Distress, Comfortable, Chronically Ill and Non-toxic
Eyes: Sclera Anicteric
Cardiovascular: Regular Rate and S1/S2; Negative S3/S4
Pulmonary: Coarse and Non Labored; Negative Rhonchi
Gastrointestinal: Soft, Non Tender, Non Distended and Normal Bowel Sounds
Extremities: Edema, Venous Insufficiency and Other (LE stasis dermatitis)
Wound: Other (Knee wound; dressing intact. Right thigh wounds with intact dressing. Right foot dressing intact.)
Psychological: Calm
Objective Data
Lab Data
Lab Results
05/29/25 06:37
05/29/25 06:37
PT 20.0 Sec (11.4-14.6) H 04/30/25 19:46
INR 1.65 04/30/25 19:46
APTT Cancelled 05/04/25 14:45
Estimated Creat Clear > 125 ml/min 05/29/25 06:37
Lactic Acid 1.9 mmol/L (0.7-2.0) 05/01/25 12:18
Total Bilirubin 0.5 mg/dl (0.2-1.3) 05/27/25 06:12
AST 12 U/L (17-59) L 05/27/25 06:12
ALT 14 U/L (0-50) 05/27/25 06:12
Alkaline Phosphatase 117 U/L (38-126) 05/27/25 06:12
Most recent labs reviewed.
Micro Results:
05/16/25 04:52 Blood Culture - Final
Blood/Venous No Growth - Final Report
05/15/25 05:39 Blood Culture - Final
Blood/Venous No Growth - Final Report
05/14/25 03:20 Blood Culture - Final
Blood/Venous No Growth - Final Report
05/13/25 09:45 Blood Culture - Final
Blood/Venous No Growth - Final Report
05/12/25 05:34 Blood Culture - Final
Blood/Venous No Growth - Final Report
05/11/25 12:40 Blood Culture - Final
Blood/Venous No Growth - Final Report
05/09/25 04:01 Blood Culture - Final
Blood/Venous Staph aureus MRSA
Gram Stain - Final
05/08/25 04:21 Blood Culture - Final
Blood/Venous Staph aureus MRSA
Gram Stain - Final
05/07/25 04:55 Blood Culture - Final
Blood/Venous Staph aureus MRSA
Gram Stain - Final
05/06/25 08:16 Blood Culture - Final
Blood/Venous Staph aureus MRSA
Gram Stain - Final
05/07/25 18:35 Wound Culture - Final
Knee - Right Staph aureus MRSA
Gram Stain - Final
05/07/25 18:35 Anaerobic Culture - Final
Knee - Right NO ANAEROBES ISOLATED
05/07/25 18:35 Wound Culture - Final
Leg - Right Staph aureus MRSA
Gram Stain - Final
05/07/25 18:35 Anaerobic Culture - Final
Leg - Right NO ANAEROBES ISOLATED
05/05/25 03:34 Blood Culture - Final
Blood/Venous No Growth - Final Report
05/03/25 04:25 Blood Culture - Final
Blood/Venous Staph aureus MRSA
Gram Stain - Final
05/02/25 03:16 Blood Culture - Final
Blood/Venous Staph aureus MRSA
Gram Stain - Final
05/04/25 03:13 Blood Culture - Final
Blood/Venous No Growth - Final Report
05/06/25 13:19 Body Fluid Culture - Final
Synovial Fluid Staph aureus MRSA
Gram Stain - Final
04/30/25 19:46 Blood Culture - Final
Blood/Venous Staph aureus MRSA
Gram Stain - Final
05/04/25 09:25 Respiratory Culture - Final
Endotracheal Staph aureus MRSA
Gram Stain - Final
05/01/25 17:45 Blood Culture - Final
Blood/Venous Staph aureus MRSA
Gram Stain - Final
04/30/25 19:46 Blood Culture - Final
Blood/Venous Staph aureus MRSA
Gram Stain - Final
05/01/25 01:32 Urine Culture - Final
Urine Yeast
05/01/25 01:17 Blood Parasites Smear - Final
Blood/Venous
04/30/25 23:02 Influenza Types A & B (GIORGIO) - Final
Nasal Swab Negative for Influenza A & B, NAAT
Negative results must be combined with clinical observations
and patient history.
Nucleic Acid Amplification test (NAAT)performed on the
[employer] platform.
Imaging:
05/27/2025 CT chest without contrast: overall decreased bilateral consolidation. Decreased or unchanged size of bilateral nodules and cavitary lesions, with decreased wall thickening of the cavitary lesions. Small bilateral pleural effusions noted,
decreased on the right and unchanged on the left. No abnormally enlarged mediastinal lymph nodes identified. No pericardial effusion. Please see full dictation for additional detail.
05/16/2025 CXR (portable): extensive heterogeneous opacities bilaterally. A 6.2 cm cavitary right lower lobe lesion again noted. No pneumothorax or pleural effusion. Mild cardiac enlargement.
05/12/2025 CXR (portable): improved aeration of the right upper lung compared to prior days imaging. Otherwise, extensive diffuse bilateral patchy, nodular and confluent airspace opacities.
05/02/25 CT RLE: Subcutaneous stranding within the soft tissues of the anterior right thigh, and [id number] anterior soft tissues. No drainable abscess is appreciated. Moderate suprapatellar joint effusion, with areas of loculation.
05/01/2025 ECHO (TTE): EF 55%. Normal biventricular size and systolic function. No significant valvular disease. No obvious vegetations.
05/01/2025 CXR (portable): bilateral interstitial and airspace disease noted which may reflect pulmonary edema or pneumonia. Small bilateral pleural effusions noted. Please see full dictation for additional detail.
05/01/2025 Abdominal x-ray. Enteric tube noted in stomach.
05/01/2025 Renal ultrasound: unremarkable renal ultrasound without hydronephrosis, contour deforming solid renal mass or echogenic shadowing foci to suggest renal calculi. Bilateral pleural effusions noted.
05/01/2025 Duplex ultrasound lower extremity: no evidence of DVT in the bilateral lower extremities
04/30/2025 X-ray right foot: soft tissue injury versus ulceration involving the second digit with soft tissue swelling. The cortex of the distal phalanx is indistinct and the possibility of osteomyelitis cannot be excluded. There is soft tissue
swelling of the first digit. No radiographic evidence to suggest osteomyelitis. Please see full dictation for additional detail.
--- NOTE | 2025-05-29 11:57 | W.PN.HOSP.TC ---
Today's Communication/Plan
-
Antibiotics. D/C dispo
Assessment / Plan
Assessment / Plan
Physical exam:
General: Chronically ill
HEENT: Normocephalic, Atraumatic and Moist Mucous Membranes
Respiratory: Clear to Auscultation; Negative Wheezes, Rales or Rhonchi
Cardiac: Regular Rhythm and S1/S2
GI: Soft, Nontender and Nondistended
Musculoskeletal: No Clubbing, No Cyanosis and No Edema. Wound feet dressings.
Neuro: Awake, Alert and Oriented, no neurological deficit
Psych: Calm
A/P:
Mr. Patrice Mera is a 50 yo man with hx polysubstance abuse, prior CVA (thalamic bleed; right hemiplegia), essential HTN, admitted 04/30 with septic shock 2/2 MRSA bacteremia, SINDY with anion gap metabolic acidosis and hypoxemic respiratory failure.
He is found to have septic joint right knee and development of necrotizing fasciitis.
#Acute respiratory failure, VDRF
-On 1 lt oxygen currently
-CT scan of the chest 05/27 shows stability
prior to today:
-patient was intubated on admission for multiple reasons in setting of septic shock, pneumonia, septic emboli
-CTA without PE
-s/p self extubation on 05/05
- Without respiratory distress ; currently on at 1 L of FiO2
-CT Chest -noted with bilateral cavitary nodules -repeat chest CT next week to follow on it
-Methylprednisolone 40 mg IV daily started on 05/11/25 per pulmonary-getting switched to oral prednisone for 5 days-last day 05/20.
-Encouraged to use Acapella or incentive spirometry
#MRSA Bacteremia
improving
Continue antibiotics per ID-on ceftaroline and daptomycin
prior to today:
Septic Shock - patient was on Levo, Vaso, Epi, Giapreza; remains off pressors
Septic Arthritis Right Knee
Necrotizing Fasciitis right medial thigh and calf
- JEAN 05/06 without e/o vegetation
- Right knee joint aspirate positive for MRSA 05/06
- Exam 05/07 with new concern for necrotizing fasciitis right medial thigh and calf Daily wound care and packing-of the 2 wounds
- Appreciate general surgery and ortho, patient is s/p I&D of necrotizing soft tissue infection and washout right knee on 05/07/25
- 05/07 antibiotics changed to IV Daptomycin Teflaro started on 05/11/2025
- Last positive Blood cultures from 05/09, negative since 05/11/25.
-Blood pressure stable. White count improving -follow for now
#Right second toe infection Gangrene
- stable
prior to today:
-Appreciate ID and Podiatry
-Antibiotics as above
-Arterial US with multiphasic waveforms
-Wound care Betadine soaked gauze to toe - change every day
-S/P Right 2nd toe amputation secondary to gangrenous changes with exposed bone 05/09/25
# Acute kidney injury - ATN in setting of septic shock
Cr 0.5 today
prior to today:
Metabolic Acidosis Resolved
-Patient briefly required CRRT but could not tolerate long
-Ultrasound of the kidneys without obstruction
-Appreciate Renal
-SINDY now resolved
-Cheng discontinued on 05/06
- Creatinine stable
# Anemia secondary to acute illness. H&H stable at 9.1
# Thrombocytosis secondary to infection-resolved
# Anasarca
# Hypoalbuminemia
# Drug abuse urine drug screen positive for Fentanyl, Benzos, Amphetamines and Methamphetamines
Decreased oxycodone from 20 to 10 and from 10 to 5 and space out Ativan from q 4 hr to bid as needed and tolerating well
prior to today:
Patient was discharged to a rehab last admission however he stayed there only for 2 days and signed himself out
# Multidrug resistant hypertension-currently blood pressure stable without medicines.
Stable
prior to today:
Patient was on Coreg, losartan, clonidine, Aldactone as outpatient.
- Patient back on clonidine, spironolactone, losartan, Coreg.
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 Transferred to [facility] . Pt says he was there for 3 months and has weakness of right side and facial droop.
stable
prior to today:
s/p [employer] shunt at [facility]
*confirmed cannot get MRI here given shunt
#Vitamin D deficiency-continue replacement
#Chronic back pain
#Morbid obesity with a BMI of 35- Weight loss recommended
#History of nephrolithiasis
#Possible sleep apnea-needs outpatient study as OP.
#ADHD
#Hepatic steatosis per prior imaging-outpatient follow-up
#Active smoker-cessation counseling when able
#DVT prophylaxis-Lovenox
#Full code
CW IV abx regimen per ID
Medically stable for DC
Ongoing dispo efforts
Time spent 35 minutes
Anticipated Discharge: 24 - 48 hours
Subjective/Interval History
-
Date of Service: May 29, 2025
Patient's pain under control, no shortness of breath or chest pain. Afebrile
Objective Data
-
Labs:
Laboratory Results
05/29/25
06:37
WBC 9.7
Hgb 9.1 L
Hct 28.7 L
Plt Count 293
Sodium 136
Potassium 4.3
Chloride 98
Carbon Dioxide 33 H
BUN 16
Creatinine 0.5 L
Glucose 104 H
Calcium 9.4
Vital Signs:
Vital Signs
Temp Pulse Resp BP Pulse Ox
97.6 F 83 15 149/91 95
05/29/25 07:45 05/29/25 08:10 05/29/25 07:45 05/29/25 08:10 05/29/25 07:45
I&O
05/28/25 05/29/25 05/30/25
06:59 06:59 06:59
Intake Total 2280 / 2280 1020 / 1020 960 / 960
Output Total 3400 / 3400 1500 / 1500 1250 / 1250
Balance -1120 / -1120 -480 / -480 -290 / -290
[2025-05-29 13:58] VITALS: BP 142/83; PULSE 83
[2025-05-29 14:05] VITALS: BP 142/93; PULSE 83
[2025-05-29] MEDS: CUBICIN 130 MG IV (14:11)
--- NOTE | 2025-05-29 15:33 | CM ---
continue bed search
Left Message with Tonya at [facility] await call back
Spoke with Amber from [facility], she will get back to once she does cost for IV ABX to determine if they will accept
PLAN: SNF, pending acceptance/bed availability, will need ins auth
[2025-05-29 15:34] VITALS: BP 131/71
[2025-05-29] MEDS: LOVENOX 40 MG SC (17:30)
[2025-05-29] MEDS: ROXICODONE 5 MG PO ×2 (17:30→21:49)
[2025-05-29 23:00] VITALS: BP 129/72
[2025-05-30] MEDS: TEFLARO 270 MG IV ×3 (00:34→15:43)
[2025-05-30] MEDS: ROXICODONE 5 MG PO ×4 (01:49→18:43)
[2025-05-30 03:59] VITALS: BP 129/77
[2025-05-30] MEDS: ROXICODONE 10 MG PO ×4 (04:01→21:11)
[2025-05-30 04:02] VITALS: BMI 32.3
[2025-05-30 06:50] LABS: Hematocrit 27.1 % (39.0-52.0); Hemoglobin 8.5 g/dL (13.0-18.0); Mean Corp Hgb Conc. 31.4 g/dL (33.0-37.0); Mean Corpuscular Volume 86.6 fL (80.0-94.0); Nucleated Red Blood Cells % 0 % (-); Platelet Count 345 10^3/uL (130-400); Red Cell Dist. Width 16.1 % (11.5-14.5)
[2025-05-30 07:24] VITALS: BP 130/83
[2025-05-30 07:50] LABS: Blood Urea Nitrogen 16 mg/dl (9-20); Calcium 9.2 mg/dl (8.4-10.2); Carbon Dioxide 31 mmol/L (22-30); Chloride 99 mmol/L (98-107); Estimated Creatinine Clearance > 125 ml/min; Glucose 96 mg/dl (70-99); Potassium 4.2 mmol/L (3.5-5.1); Sodium 136 mmol/L (135-145); eGFR > 60.00
--- NOTE | 2025-05-30 08:30 | W.PN.HOSP.TC ---
Today's Communication/Plan
-
Antibiotics. Discharge planning
Assessment / Plan
Assessment / Plan
Physical exam:
General: Chronically ill
HEENT: Normocephalic, Atraumatic and Moist Mucous Membranes
Respiratory: Clear to Auscultation; Negative Wheezes, Rales or Rhonchi
Cardiac: Regular Rhythm and S1/S2
GI: Soft, Nontender and Nondistended
Musculoskeletal: No Clubbing, No Cyanosis and No Edema. Wound feet dressings.
Neuro: Awake, Alert and Oriented, no neurological deficit
Psych: Calm
A/P:
Mr. Patrice Mera is a 50 yo man with hx polysubstance abuse, prior CVA (thalamic bleed; right hemiplegia), essential HTN, admitted 04/30 with septic shock 2/2 MRSA bacteremia, SINDY with anion gap metabolic acidosis and hypoxemic respiratory failure.
He is found to have septic joint right knee and development of necrotizing fasciitis.
#Acute respiratory failure, VDRF
-On 1 lt oxygen currently
-CT scan of the chest 05/27 shows stability
prior to today:
-patient was intubated on admission for multiple reasons in setting of septic shock, pneumonia, septic emboli
-CTA without PE
-s/p self extubation on 05/05
- Without respiratory distress ; currently on at 1 L of FiO2
-CT Chest -noted with bilateral cavitary nodules -repeat chest CT next week to follow on it
-Methylprednisolone 40 mg IV daily started on 05/11/25 per pulmonary-getting switched to oral prednisone for 5 days-last day 05/20.
-Encouraged to use Acapella or incentive spirometry
#MRSA Bacteremia
improving
Continue antibiotics per ID-on ceftaroline and daptomycin
prior to today:
Septic Shock - patient was on Levo, Vaso, Epi, Giapreza; remains off pressors
Septic Arthritis Right Knee
Necrotizing Fasciitis right medial thigh and calf
- JEAN 05/06 without e/o vegetation
- Right knee joint aspirate positive for MRSA 05/06
- Exam 05/07 with new concern for necrotizing fasciitis right medial thigh and calf Daily wound care and packing-of the 2 wounds
- Appreciate general surgery and ortho, patient is s/p I&D of necrotizing soft tissue infection and washout right knee on 05/07/25
- 05/07 antibiotics changed to IV Daptomycin Teflaro started on 05/11/2025
- Last positive Blood cultures from 05/09, negative since 05/11/25.
-Blood pressure stable. White count improving -follow for now
#Right second toe infection Gangrene
- stable
prior to today:
-Appreciate ID and Podiatry
-Antibiotics as above
-Arterial US with multiphasic waveforms
-Wound care Betadine soaked gauze to toe - change every day
-S/P Right 2nd toe amputation secondary to gangrenous changes with exposed bone 05/09/25
# Acute kidney injury - ATN in setting of septic shock
Cr stable
prior to today:
Metabolic Acidosis Resolved
-Patient briefly required CRRT but could not tolerate long
-Ultrasound of the kidneys without obstruction
-Appreciate Renal
-SINDY now resolved
-Cheng discontinued on 05/06
- Creatinine stable
# Anemia secondary to acute illness. H&H stable
# Thrombocytosis secondary to infection-resolved
# Anasarca
# Hypoalbuminemia
# Drug abuse urine drug screen positive for Fentanyl, Benzos, Amphetamines and Methamphetamines
Decreased oxycodone from 20 to 10 and from 10 to 5 and space out Ativan from q 4 hr to bid as needed and tolerating well
prior to today:
Patient was discharged to a rehab last admission however he stayed there only for 2 days and signed himself out
# Multidrug resistant hypertension-currently blood pressure stable without medicines.
Stable
prior to today:
Patient was on Coreg, losartan, clonidine, Aldactone as outpatient.
- Patient back on clonidine, spironolactone, losartan, Coreg.
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 Transferred to [place] . Pt says he was there for 3 months and has weakness of right side and facial droop.
stable
prior to today:
s/p [employer] shunt at [place]
*confirmed cannot get MRI here given shunt
#Vitamin D deficiency-continue replacement
#Chronic back pain
#Morbid obesity with a BMI of 35- Weight loss recommended
#History of nephrolithiasis
#Possible sleep apnea-needs outpatient study as OP.
#ADHD
#Hepatic steatosis per prior imaging-outpatient follow-up
#Active smoker-cessation counseling when able
#DVT prophylaxis-Lovenox
#Full code
CW IV abx regimen per ID
Medically stable for DC
Ongoing dispo efforts
Time spent 35 minutes
Anticipated Discharge: > 48 hours
Subjective/Interval History
-
Date of Service: May 30, 2025
Patient feels well. Afebrile
Objective Data
-
Labs:
Laboratory Results
05/30/25
06:35
WBC 8.9
Hgb 8.5 L
Hct 27.1 L
Plt Count 345
Sodium 136
Potassium 4.2
Chloride 99
Carbon Dioxide 31 H
BUN 16
Creatinine 0.6 L
Glucose 96
Calcium 9.2
Vital Signs:
Vital Signs
Temp Pulse Resp BP Pulse Ox
97.8 F 77 16 130/83 97
05/30/25 07:24 05/30/25 07:24 05/30/25 07:24 05/30/25 07:24 05/30/25 07:24
I&O
05/29/25 05/30/25 05/31/25
06:59 06:59 06:59
Intake Total 1020 / 1020 1440 / 1440
Output Total 1500 / 1500 3100 / 3100
Balance -480 / -480 -1660 / -1660
[2025-05-30] MEDS: CATAPRES 0.2 MG PO ×2 (09:13→21:09)
[2025-05-30] MEDS: SENOKOT 8.6 MG PO (09:13)
[2025-05-30] MEDS: COLACE 100 MG PO (09:13)
[2025-05-30] MEDS: MYCOSTATIN ORAL SUSPENSION 5 ML PO ×4 (09:13→21:09)
[2025-05-30] MEDS: MIRALAX 17 GRAMS PO (09:13)
[2025-05-30] MEDS: PROTONIX 40 MG PO (09:13)
[2025-05-30] MEDS: ALDACTONE 50 MG PO (09:14)
[2025-05-30] MEDS: COZAAR 100 MG PO (09:14)
[2025-05-30] MEDS: COREG 25 MG PO ×2 (09:14→21:09)
[2025-05-30] MEDS: DESENEX/MITRAZOL/ZEASORB 1 APPLIC TOPICAL ×2 (11:02→21:12)
[2025-05-30] MEDS: DAKIN'S SOLUTION 0.125% 1/4 STRENGTH TOPICAL ×2 (11:02→17:07)
[2025-05-30] MEDS: HYDROPHOR 1 APPLIC TOPICAL (11:03)
--- NOTE | 2025-05-30 12:24 | CM ---
CM followed up with Amber at [facility]
she stated that this referral is under review with her [employer]
she will get back to CM
Left message again with Tonya at [facility]
PLAN: SNF, pending acceptance/bed availability, will need ins auth once bed secured
[2025-05-30] MEDS: CUBICIN 130 MG IV (14:15)
[2025-05-30 15:26] VITALS: BP 142/79
--- NOTE | 2025-05-30 15:35 | W.PN.ID1 ---
Date of Service
Date of Service: May 30, 2025
Today's Communication
Continue antibiotic.
Assessment / Plan
Sustained (04/30 - 05/09) complicated MRSA bacteremia
- Blood cultures clear as of 05/11/2025
Pulmonary septic emboli
Cavitary MRSA PNA
Septic arthritis - right knee; s/p washout
Right thigh & calf necrotizing soft tissue infection
Right second toe infection/gangrene/osteomyelitis; s/p amputation
Fever -resolving
Leukocytosis -stable
s/p Hypoxemic respiratory failure, self extubated 05/05
SINDY; resolved
Substance abuse (UDS with fentanyl, amphetamine, methamphetamine, benzodiazepine)
Hx CVA (thalamic bleed) with right hemiplegia
Chronic back pain
Recommendations:
05/01/20 ECHO (TTE) without valvular disease. 05/06/25 ECHO (JEAN): no valvular vegetation noted.
Sputum cx: MRSA
Blood cx's negative
05/06 R knee fluid: 41,220 WBC, 54% polys, neg crystals.
Synovial cx : MRSA
05/07/25 - s/p washout of R knee (+PUS). Cx MRSA
05/07/25 - s/p I+D right thigh and calf. Cx MRSA
05/09/25 s/p R 2nd toe amputation
Continue Daptomycin IV (d#21).
- Monitor CK closely while on Dapto
Continue ceftaroline (d#17)
Continue abx at least through 06/22/2025
Follow WBC count, platelets, CPK, temperature, O2 requirements.
White count stable today. Continuing to follow.
����������������������������������������������������������
Chief Complaint
-: Clinical Sepsis, Pneumonia and Bacteremia
Subjective / Review of Systems
Review of Systems: No Fever
Vital Signs / Physical Exam
Vital Signs
Vital Signs
Temp Pulse Resp BP Pulse Ox
97.3 F 75 17 142/79 97
05/30/25 15:26 05/30/25 15:26 05/30/25 15:26 05/30/25 15:26 05/30/25 15:26
Physical Exam
Constitutional: No Acute Distress, Comfortable, Chronically Ill and Non-toxic
Eyes: Sclera Anicteric
Cardiovascular: Regular Rate and S1/S2; Negative S3/S4
Pulmonary: Coarse and Non Labored; Negative Rhonchi
Gastrointestinal: Soft, Non Tender, Non Distended and Normal Bowel Sounds
Extremities: Edema, Venous Insufficiency and Other (LE stasis dermatitis)
Wound: Other (Knee wound; dressing intact. Right thigh wounds with intact dressing. Right foot dressing intact.)
Psychological: Calm
Objective Data
Lab Data
Lab Results
05/30/25 06:35
05/30/25 06:35
PT 20.0 Sec (11.4-14.6) H 04/30/25 19:46
INR 1.65 04/30/25 19:46
APTT Cancelled 05/04/25 14:45
Estimated Creat Clear > 125 ml/min 05/30/25 06:35
Lactic Acid 1.9 mmol/L (0.7-2.0) 05/01/25 12:18
Total Bilirubin 0.5 mg/dl (0.2-1.3) 05/27/25 06:12
AST 12 U/L (17-59) L 05/27/25 06:12
ALT 14 U/L (0-50) 05/27/25 06:12
Alkaline Phosphatase 117 U/L (38-126) 05/27/25 06:12
Most recent labs reviewed.
Micro Results:
05/16/25 04:52 Blood Culture - Final
Blood/Venous No Growth - Final Report
05/15/25 05:39 Blood Culture - Final
Blood/Venous No Growth - Final Report
05/14/25 03:20 Blood Culture - Final
Blood/Venous No Growth - Final Report
05/13/25 09:45 Blood Culture - Final
Blood/Venous No Growth - Final Report
05/12/25 05:34 Blood Culture - Final
Blood/Venous No Growth - Final Report
05/11/25 12:40 Blood Culture - Final
Blood/Venous No Growth - Final Report
05/09/25 04:01 Blood Culture - Final
Blood/Venous Staph aureus MRSA
Gram Stain - Final
05/08/25 04:21 Blood Culture - Final
Blood/Venous Staph aureus MRSA
Gram Stain - Final
05/07/25 04:55 Blood Culture - Final
Blood/Venous Staph aureus MRSA
Gram Stain - Final
05/06/25 08:16 Blood Culture - Final
Blood/Venous Staph aureus MRSA
Gram Stain - Final
05/07/25 18:35 Wound Culture - Final
Knee - Right Staph aureus MRSA
Gram Stain - Final
05/07/25 18:35 Anaerobic Culture - Final
Knee - Right NO ANAEROBES ISOLATED
05/07/25 18:35 Wound Culture - Final
Leg - Right Staph aureus MRSA
Gram Stain - Final
05/07/25 18:35 Anaerobic Culture - Final
Leg - Right NO ANAEROBES ISOLATED
05/05/25 03:34 Blood Culture - Final
Blood/Venous No Growth - Final Report
05/03/25 04:25 Blood Culture - Final
Blood/Venous Staph aureus MRSA
Gram Stain - Final
05/02/25 03:16 Blood Culture - Final
Blood/Venous Staph aureus MRSA
Gram Stain - Final
05/04/25 03:13 Blood Culture - Final
Blood/Venous No Growth - Final Report
05/06/25 13:19 Body Fluid Culture - Final
Synovial Fluid Staph aureus MRSA
Gram Stain - Final
04/30/25 19:46 Blood Culture - Final
Blood/Venous Staph aureus MRSA
Gram Stain - Final
05/04/25 09:25 Respiratory Culture - Final
Endotracheal Staph aureus MRSA
Gram Stain - Final
05/01/25 17:45 Blood Culture - Final
Blood/Venous Staph aureus MRSA
Gram Stain - Final
04/30/25 19:46 Blood Culture - Final
Blood/Venous Staph aureus MRSA
Gram Stain - Final
05/01/25 01:32 Urine Culture - Final
Urine Yeast
05/01/25 01:17 Blood Parasites Smear - Final
Blood/Venous
04/30/25 23:02 Influenza Types A & B (GIORGIO) - Final
Nasal Swab Negative for Influenza A & B, NAAT
Negative results must be combined with clinical observations
and patient history.
Nucleic Acid Amplification test (NAAT)performed on the
[employer] platform.
Imaging:
05/27/2025 CT chest without contrast: overall decreased bilateral consolidation. Decreased or unchanged size of bilateral nodules and cavitary lesions, with decreased wall thickening of the cavitary lesions. Small bilateral pleural effusions noted,
decreased on the right and unchanged on the left. No abnormally enlarged mediastinal lymph nodes identified. No pericardial effusion. Please see full dictation for additional detail.
05/16/2025 CXR (portable): extensive heterogeneous opacities bilaterally. A 6.2 cm cavitary right lower lobe lesion again noted. No pneumothorax or pleural effusion. Mild cardiac enlargement.
05/12/2025 CXR (portable): improved aeration of the right upper lung compared to prior days imaging. Otherwise, extensive diffuse bilateral patchy, nodular and confluent airspace opacities.
05/02/25 CT RLE: Subcutaneous stranding within the soft tissues of the anterior right thigh, and [id number] anterior soft tissues. No drainable abscess is appreciated. Moderate suprapatellar joint effusion, with areas of loculation.
05/01/2025 ECHO (TTE): EF 55%. Normal biventricular size and systolic function. No significant valvular disease. No obvious vegetations.
05/01/2025 CXR (portable): bilateral interstitial and airspace disease noted which may reflect pulmonary edema or pneumonia. Small bilateral pleural effusions noted. Please see full dictation for additional detail.
05/01/2025 Abdominal x-ray. Enteric tube noted in stomach.
05/01/2025 Renal ultrasound: unremarkable renal ultrasound without hydronephrosis, contour deforming solid renal mass or echogenic shadowing foci to suggest renal calculi. Bilateral pleural effusions noted.
05/01/2025 Duplex ultrasound lower extremity: no evidence of DVT in the bilateral lower extremities
04/30/2025 X-ray right foot: soft tissue injury versus ulceration involving the second digit with soft tissue swelling. The cortex of the distal phalanx is indistinct and the possibility of osteomyelitis cannot be excluded. There is soft tissue
swelling of the first digit. No radiographic evidence to suggest osteomyelitis. Please see full dictation for additional detail.
[2025-05-30] MEDS: LOVENOX 40 MG SC (16:36)
[2025-05-30] MEDS: SENOKOT PO (21:09)
[2025-05-30] MEDS: COLACE PO (21:09)
[2025-05-30 23:00] VITALS: BP 136/79
[2025-05-31] MEDS: TEFLARO 270 MG IV ×3 (00:37→16:07)
[2025-05-31] MEDS: ROXICODONE 10 MG PO ×5 (01:13→20:59)
[2025-05-31 06:00] VITALS: BMI 32.1
--- NOTE | 2025-05-31 06:48 | PTCARENOTE ---
Per RN report, pt refusing wound care on 05/30. Pt continues to refuse wound care throughout the night. Pt appeared more comfortable overnight. Oxycodone given PRN. Pt agreeable to wound care today (05/31).
--- NOTE | 2025-05-31 07:36 | W.PN.HOSP.TC ---
Today's Communication/Plan
-
Antibiotics
Assessment / Plan
Assessment / Plan
Physical exam:
General: Chronically ill
HEENT: Normocephalic, Atraumatic and Moist Mucous Membranes
Respiratory: Clear to Auscultation; Negative Wheezes, Rales or Rhonchi
Cardiac: Regular Rhythm and S1/S2
GI: Soft, Nontender and Nondistended
Musculoskeletal: No Clubbing, No Cyanosis and No Edema. Wound feet dressings.
Neuro: Awake, Alert and Oriented, no neurological deficit
Psych: Calm
A/P:
Mr. Patrice Mera is a 50 yo man with hx polysubstance abuse, prior CVA (thalamic bleed; right hemiplegia), essential HTN, admitted 04/30 with septic shock 2/2 MRSA bacteremia, SINDY with anion gap metabolic acidosis and hypoxemic respiratory failure.
He is found to have septic joint right knee and development of necrotizing fasciitis.
#Acute respiratory failure, VDRF
-On 1 lt oxygen currently
-CT scan of the chest 05/27 shows stability
prior to today:
-patient was intubated on admission for multiple reasons in setting of septic shock, pneumonia, septic emboli
-CTA without PE
-s/p self extubation on 05/05
- Without respiratory distress ; currently on at 1 L of FiO2
-CT Chest -noted with bilateral cavitary nodules -repeat chest CT next week to follow on it
-Methylprednisolone 40 mg IV daily started on 05/11/25 per pulmonary-getting switched to oral prednisone for 5 days-last day 05/20.
-Encouraged to use Acapella or incentive spirometry
#MRSA Bacteremia
improving
Continue antibiotics per ID-on ceftaroline and daptomycin
prior to today:
Septic Shock - patient was on Levo, Vaso, Epi, Giapreza; remains off pressors
Septic Arthritis Right Knee
Necrotizing Fasciitis right medial thigh and calf
- JEAN 05/06 without e/o vegetation
- Right knee joint aspirate positive for MRSA 05/06
- Exam 05/07 with new concern for necrotizing fasciitis right medial thigh and calf Daily wound care and packing-of the 2 wounds
- Appreciate general surgery and ortho, patient is s/p I&D of necrotizing soft tissue infection and washout right knee on 05/07/25
- 05/07 antibiotics changed to IV Daptomycin Teflaro started on 05/11/2025
- Last positive Blood cultures from 05/09, negative since 05/11/25.
-Blood pressure stable. White count improving -follow for now
#Right second toe infection Gangrene
- stable
prior to today:
-Appreciate ID and Podiatry
-Antibiotics as above
-Arterial US with multiphasic waveforms
-Wound care Betadine soaked gauze to toe - change every day
-S/P Right 2nd toe amputation secondary to gangrenous changes with exposed bone 05/09/25
# Acute kidney injury - ATN in setting of septic shock
Cr stable
prior to today:
Metabolic Acidosis Resolved
-Patient briefly required CRRT but could not tolerate long
-Ultrasound of the kidneys without obstruction
-Appreciate Renal
-SINDY now resolved
-Cheng discontinued on 05/06
- Creatinine stable
# Anemia secondary to acute illness. H&H stable
# Thrombocytosis secondary to infection-resolved
# Anasarca
# Hypoalbuminemia
# Drug abuse urine drug screen positive for Fentanyl, Benzos, Amphetamines and Methamphetamines
Decreased oxycodone from 20 to 10 and from 10 to 5 and space out Ativan from q 4 hr to bid as needed and tolerating well
prior to today:
Patient was discharged to a rehab last admission however he stayed there only for 2 days and signed himself out
# Multidrug resistant hypertension-currently blood pressure stable without medicines.
Stable
prior to today:
Patient was on Coreg, losartan, clonidine, Aldactone as outpatient.
- Patient back on clonidine, spironolactone, losartan, Coreg.
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 Transferred to [place] . Pt says he was there for 3 months and has weakness of right side and facial droop.
stable
prior to today:
s/p [employer] shunt at [place]
*confirmed cannot get MRI here given shunt
#Vitamin D deficiency-continue replacement
#Chronic back pain
#Morbid obesity with a BMI of 35- Weight loss recommended
#History of nephrolithiasis
#Possible sleep apnea-needs outpatient study as OP.
#ADHD
#Hepatic steatosis per prior imaging-outpatient follow-up
#Active smoker-cessation counseling when able
#DVT prophylaxis-Lovenox
#Full code
CW IV abx regimen per ID
Medically stable for DC
Ongoing dispo efforts
Time spent 35 minutes
Anticipated Discharge: > 48 hours
Subjective/Interval History
-
Date of Service: May 31, 2025
No new complaints. Afebrile
Objective Data
-
Vital Signs:
Vital Signs
Temp Pulse Resp BP Pulse Ox
98.1 F 76 16 136/79 96
05/30/25 23:00 05/30/25 23:00 05/30/25 23:00 05/30/25 23:00 05/30/25 23:00
I&O
05/30/25 05/31/25 06/01/25
06:59 06:59 06:59
Intake Total 1440 / 1440 1230 / 1230
Output Total 3100 / 3100 1825 / 1825
Balance -1660 / -1660 -595 / -595
[2025-05-31 07:47] VITALS: BP 132/76
[2025-05-31] MEDS: PROTONIX 40 MG PO (08:21)
[2025-05-31] MEDS: CATAPRES 0.2 MG PO ×2 (08:21→20:51)
[2025-05-31] MEDS: COREG 25 MG PO ×2 (08:21→20:52)
[2025-05-31] MEDS: DAKIN'S SOLUTION 0.125% 1/4 STRENGTH 20 ML TOPICAL (08:22)
[2025-05-31] MEDS: MYCOSTATIN ORAL SUSPENSION 5 ML PO ×4 (08:22→23:21)
[2025-05-31] MEDS: ALDACTONE 50 MG PO (08:22)
[2025-05-31] MEDS: COZAAR 100 MG PO (08:22)
[2025-05-31] MEDS: HYDROPHOR 1 APPLIC TOPICAL (08:23)
[2025-05-31] MEDS: DESENEX/MITRAZOL/ZEASORB 1 APPLIC TOPICAL ×2 (08:23→20:53)
[2025-05-31] MEDS: COLACE PO ×2 (08:35→20:52)
[2025-05-31] MEDS: MIRALAX PO (08:35)
[2025-05-31] MEDS: SENOKOT PO ×2 (08:35→20:52)
--- NOTE | 2025-05-31 12:03 | W.PN.ID1 ---
Date of Service
Date of Service: May 31, 2025
Today's Communication
Continue antibiotics.
Assessment / Plan
Sustained (04/30 - 05/09) complicated MRSA bacteremia
- Blood cultures clear as of 05/11/2025
Pulmonary septic emboli
Cavitary MRSA PNA
Septic arthritis - right knee; s/p washout
Right thigh & calf necrotizing soft tissue infection
Right second toe infection/gangrene/osteomyelitis; s/p amputation
Fever -resolving
Leukocytosis -stable
s/p Hypoxemic respiratory failure, self extubated 05/05
SINDY; resolved
Substance abuse (UDS with fentanyl, amphetamine, methamphetamine, benzodiazepine)
Hx CVA (thalamic bleed) with right hemiplegia
Chronic back pain
Recommendations:
05/01/20 ECHO (TTE) without valvular disease. 05/06/25 ECHO (JEAN): no valvular vegetation noted.
Sputum cx: MRSA
Blood cx's negative
05/06 R knee fluid: 41,220 WBC, 54% polys, neg crystals.
Synovial cx : MRSA
05/07/25 - s/p washout of R knee (+PUS). Cx MRSA
05/07/25 - s/p I+D right thigh and calf. Cx MRSA
05/09/25 s/p R 2nd toe amputation
Continue Daptomycin IV (d#22).
- Monitor CK while on Dapto. Currently stable.
Continue ceftaroline (d#18)
Continue abx at least through 06/22/2025
Follow WBC count, platelets, CPK, temperature, O2 requirements.
White count stable today. Continuing to follow.
����������������������������������������������������������
Chief Complaint
-: Clinical Sepsis, Pneumonia and Bacteremia
Subjective / Review of Systems
Review of Systems: No Fever
Vital Signs / Physical Exam
Vital Signs
Vital Signs
Temp Pulse Resp BP Pulse Ox
97.6 F 75 16 132/76 94
05/31/25 07:47 05/31/25 08:21 05/31/25 07:47 05/31/25 08:21 05/31/25 07:47
Physical Exam
Constitutional: No Acute Distress, Comfortable, Chronically Ill and Non-toxic
Cardiovascular: S1/S2; Negative S3/S4
Pulmonary: Non Labored
Gastrointestinal: Non Distended
Extremities: Edema, Venous Insufficiency and Other (LE stasis dermatitis)
Wound: Other (Knee wound; dressing intact. Right thigh wounds with intact dressing. Right foot dressing intact.)
Psychological: Calm
Objective Data
Lab Data
Lab Results
05/30/25 06:35
05/30/25 06:35
PT 20.0 Sec (11.4-14.6) H 04/30/25 19:46
INR 1.65 04/30/25 19:46
APTT Cancelled 05/04/25 14:45
Estimated Creat Clear > 125 ml/min 05/30/25 06:35
Lactic Acid 1.9 mmol/L (0.7-2.0) 05/01/25 12:18
Total Bilirubin 0.5 mg/dl (0.2-1.3) 05/27/25 06:12
AST 12 U/L (17-59) L 05/27/25 06:12
ALT 14 U/L (0-50) 05/27/25 06:12
Alkaline Phosphatase 117 U/L (38-126) 05/27/25 06:12
Most recent labs reviewed.
Micro Results:
05/16/25 04:52 Blood Culture - Final
Blood/Venous No Growth - Final Report
05/15/25 05:39 Blood Culture - Final
Blood/Venous No Growth - Final Report
05/14/25 03:20 Blood Culture - Final
Blood/Venous No Growth - Final Report
05/13/25 09:45 Blood Culture - Final
Blood/Venous No Growth - Final Report
05/12/25 05:34 Blood Culture - Final
Blood/Venous No Growth - Final Report
05/11/25 12:40 Blood Culture - Final
Blood/Venous No Growth - Final Report
05/09/25 04:01 Blood Culture - Final
Blood/Venous Staph aureus MRSA
Gram Stain - Final
05/08/25 04:21 Blood Culture - Final
Blood/Venous Staph aureus MRSA
Gram Stain - Final
05/07/25 04:55 Blood Culture - Final
Blood/Venous Staph aureus MRSA
Gram Stain - Final
05/06/25 08:16 Blood Culture - Final
Blood/Venous Staph aureus MRSA
Gram Stain - Final
05/07/25 18:35 Wound Culture - Final
Knee - Right Staph aureus MRSA
Gram Stain - Final
05/07/25 18:35 Anaerobic Culture - Final
Knee - Right NO ANAEROBES ISOLATED
05/07/25 18:35 Wound Culture - Final
Leg - Right Staph aureus MRSA
Gram Stain - Final
05/07/25 18:35 Anaerobic Culture - Final
Leg - Right NO ANAEROBES ISOLATED
05/05/25 03:34 Blood Culture - Final
Blood/Venous No Growth - Final Report
05/03/25 04:25 Blood Culture - Final
Blood/Venous Staph aureus MRSA
Gram Stain - Final
05/02/25 03:16 Blood Culture - Final
Blood/Venous Staph aureus MRSA
Gram Stain - Final
05/04/25 03:13 Blood Culture - Final
Blood/Venous No Growth - Final Report
05/06/25 13:19 Body Fluid Culture - Final
Synovial Fluid Staph aureus MRSA
Gram Stain - Final
04/30/25 19:46 Blood Culture - Final
Blood/Venous Staph aureus MRSA
Gram Stain - Final
05/04/25 09:25 Respiratory Culture - Final
Endotracheal Staph aureus MRSA
Gram Stain - Final
05/01/25 17:45 Blood Culture - Final
Blood/Venous Staph aureus MRSA
Gram Stain - Final
04/30/25 19:46 Blood Culture - Final
Blood/Venous Staph aureus MRSA
Gram Stain - Final
05/01/25 01:32 Urine Culture - Final
Urine Yeast
05/01/25 01:17 Blood Parasites Smear - Final
Blood/Venous
04/30/25 23:02 Influenza Types A & B (GIORGIO) - Final
Nasal Swab Negative for Influenza A & B, NAAT
Negative results must be combined with clinical observations
and patient history.
Nucleic Acid Amplification test (NAAT)performed on the
[employer] platform.
Imaging:
05/27/2025 CT chest without contrast: overall decreased bilateral consolidation. Decreased or unchanged size of bilateral nodules and cavitary lesions, with decreased wall thickening of the cavitary lesions. Small bilateral pleural effusions noted,
decreased on the right and unchanged on the left. No abnormally enlarged mediastinal lymph nodes identified. No pericardial effusion. Please see full dictation for additional detail.
05/16/2025 CXR (portable): extensive heterogeneous opacities bilaterally. A 6.2 cm cavitary right lower lobe lesion again noted. No pneumothorax or pleural effusion. Mild cardiac enlargement.
05/12/2025 CXR (portable): improved aeration of the right upper lung compared to prior days imaging. Otherwise, extensive diffuse bilateral patchy, nodular and confluent airspace opacities.
05/02/25 CT RLE: Subcutaneous stranding within the soft tissues of the anterior right thigh, and [id number] anterior soft tissues. No drainable abscess is appreciated. Moderate suprapatellar joint effusion, with areas of loculation.
05/01/2025 ECHO (TTE): EF 55%. Normal biventricular size and systolic function. No significant valvular disease. No obvious vegetations.
05/01/2025 CXR (portable): bilateral interstitial and airspace disease noted which may reflect pulmonary edema or pneumonia. Small bilateral pleural effusions noted. Please see full dictation for additional detail.
05/01/2025 Abdominal x-ray. Enteric tube noted in stomach.
05/01/2025 Renal ultrasound: unremarkable renal ultrasound without hydronephrosis, contour deforming solid renal mass or echogenic shadowing foci to suggest renal calculi. Bilateral pleural effusions noted.
05/01/2025 Duplex ultrasound lower extremity: no evidence of DVT in the bilateral lower extremities
04/30/2025 X-ray right foot: soft tissue injury versus ulceration involving the second digit with soft tissue swelling. The cortex of the distal phalanx is indistinct and the possibility of osteomyelitis cannot be excluded. There is soft tissue
swelling of the first digit. No radiographic evidence to suggest osteomyelitis. Please see full dictation for additional detail.
[2025-05-31] MEDS: CUBICIN 130 MG IV (13:47)
[2025-05-31 16:09] VITALS: BP 135/70
[2025-05-31] MEDS: LOVENOX 40 MG SC (17:13)
[2025-05-31 23:58] VITALS: BP 138/89
[2025-06-01] MEDS: TEFLARO 270 MG IV ×3 (00:27→15:13)
[2025-06-01] MEDS: ROXICODONE 5 MG PO (00:35)
[2025-06-01 06:00] VITALS: BMI 32.5
[2025-06-01] MEDS: ROXICODONE 10 MG PO ×4 (06:22→22:19)
[2025-06-01 08:02] VITALS: BP 119/73
[2025-06-01] MEDS: COREG 25 MG PO ×2 (08:29→21:22)
[2025-06-01] MEDS: CATAPRES 0.2 MG PO ×2 (08:29→21:25)
[2025-06-01] MEDS: COZAAR 100 MG PO (08:29)
[2025-06-01] MEDS: PROTONIX 40 MG PO (08:29)
[2025-06-01] MEDS: MYCOSTATIN ORAL SUSPENSION 5 ML PO ×4 (08:29→21:25)
[2025-06-01] MEDS: ALDACTONE 50 MG PO (08:29)
[2025-06-01] MEDS: MIRALAX PO (08:30)
[2025-06-01] MEDS: SENOKOT PO ×2 (08:30→21:23)
[2025-06-01] MEDS: COLACE PO ×2 (08:30→21:23)
[2025-06-01] MEDS: DESENEX/MITRAZOL/ZEASORB 1 APPLIC TOPICAL ×2 (08:32→21:26)
[2025-06-01] MEDS: DAKIN'S SOLUTION 0.125% 1/4 STRENGTH 20 ML TOPICAL (08:32)
[2025-06-01] MEDS: HYDROPHOR 1 APPLIC TOPICAL (08:32)
[2025-06-01] MEDS: DRISDOL (VITAMIN D2) 50000 UNITS PO (08:35)
--- NOTE | 2025-06-01 08:41 | W.PN.HOSP.TC ---
Today's Communication/Plan
-
Discharge planning
Assessment / Plan
Assessment / Plan
Physical exam:
General: Chronically ill
HEENT: Normocephalic, Atraumatic and Moist Mucous Membranes
Respiratory: Clear to Auscultation; Negative Wheezes, Rales or Rhonchi
Cardiac: Regular Rhythm and S1/S2
GI: Soft, Nontender and Nondistended
Musculoskeletal: No Clubbing, No Cyanosis and No Edema. Wound feet dressings.
Neuro: Awake, Alert and Oriented, no neurological deficit
Psych: Calm
A/P:
Mr. Patrice Mera is a 50 yo man with hx polysubstance abuse, prior CVA (thalamic bleed; right hemiplegia), essential HTN, admitted 04/30 with septic shock 2/2 MRSA bacteremia, SINDY with anion gap metabolic acidosis and hypoxemic respiratory failure.
He is found to have septic joint right knee and development of necrotizing fasciitis.
#Acute respiratory failure, VDRF
-On 1 lt oxygen currently
-CT scan of the chest 05/27 shows stability
prior to today:
-patient was intubated on admission for multiple reasons in setting of septic shock, pneumonia, septic emboli
-CTA without PE
-s/p self extubation on 05/05
- Without respiratory distress ; currently on at 1 L of FiO2
-CT Chest -noted with bilateral cavitary nodules -repeat chest CT next week to follow on it
-Methylprednisolone 40 mg IV daily started on 05/11/25 per pulmonary-getting switched to oral prednisone for 5 days-last day 05/20.
-Encouraged to use Acapella or incentive spirometry
#MRSA Bacteremia
improving
Continue antibiotics per ID-on ceftaroline and daptomycin
prior to today:
Septic Shock - patient was on Levo, Vaso, Epi, Giapreza; remains off pressors
Septic Arthritis Right Knee
Necrotizing Fasciitis right medial thigh and calf
- JEAN 05/06 without e/o vegetation
- Right knee joint aspirate positive for MRSA 05/06
- Exam 05/07 with new concern for necrotizing fasciitis right medial thigh and calf Daily wound care and packing-of the 2 wounds
- Appreciate general surgery and ortho, patient is s/p I&D of necrotizing soft tissue infection and washout right knee on 05/07/25
- 05/07 antibiotics changed to IV Daptomycin Teflaro started on 05/11/2025
- Last positive Blood cultures from 05/09, negative since 05/11/25.
-Blood pressure stable. White count improving -follow for now
#Right second toe infection Gangrene
- stable
prior to today:
-Appreciate ID and Podiatry
-Antibiotics as above
-Arterial US with multiphasic waveforms
-Wound care Betadine soaked gauze to toe - change every day
-S/P Right 2nd toe amputation secondary to gangrenous changes with exposed bone 05/09/25
# Acute kidney injury - ATN in setting of septic shock
Cr stable
prior to today:
Metabolic Acidosis Resolved
-Patient briefly required CRRT but could not tolerate long
-Ultrasound of the kidneys without obstruction
-Appreciate Renal
-SINDY now resolved
-Cheng discontinued on 05/06
- Creatinine stable
# Anemia secondary to acute illness. H&H stable
# Thrombocytosis secondary to infection-resolved
# Anasarca
# Hypoalbuminemia
# Drug abuse urine drug screen positive for Fentanyl, Benzos, Amphetamines and Methamphetamines
Decreased oxycodone from 20 to 10 and from 10 to 5 and space out Ativan from q 4 hr to bid as needed and tolerating well
prior to today:
Patient was discharged to a rehab last admission however he stayed there only for 2 days and signed himself out
# Multidrug resistant hypertension-currently blood pressure stable without medicines.
Stable
prior to today:
Patient was on Coreg, losartan, clonidine, Aldactone as outpatient.
- Patient back on clonidine, spironolactone, losartan, Coreg.
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 Transferred to [place] . Pt says he was there for 3 months and has weakness of right side and facial droop.
stable
prior to today:
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
*confirmed cannot get MRI here given shunt
#Vitamin D deficiency-continue replacement
#Chronic back pain
#Morbid obesity with a BMI of 35- Weight loss recommended
#History of nephrolithiasis
#Possible sleep apnea-needs outpatient study as OP.
#ADHD
#Hepatic steatosis per prior imaging-outpatient follow-up
#Active smoker-cessation counseling when able
#DVT prophylaxis-Lovenox
#Full code
CW IV abx regimen per ID
Medically stable for DC
Ongoing dispo efforts
Time spent 35 minutes
Anticipated Discharge: 24 - 48 hours
Subjective/Interval History
-
Date of Service: June 01, 2025
Denies any new complaints. Afebrile.
Objective Data
-
Vital Signs:
Vital Signs
Temp Pulse Resp BP Pulse Ox
97.7 F 74 16 119/73 96
06/01/25 08:02 06/01/25 08:02 06/01/25 08:02 06/01/25 08:02 06/01/25 08:02
I&O
05/31/25 06/01/25 06/02/25
06:59 06:59 06:59
Intake Total 1230 / 1230 2400 / 2400
Output Total 1825 / 1825 2925 / 2925
Balance -595 / -595 -525 / -525
[2025-06-01] MEDS: CUBICIN 130 MG IV (13:05)
[2025-06-01 16:32] VITALS: BP 115/75
[2025-06-01] MEDS: LOVENOX 40 MG SC (16:59)
[2025-06-01 23:18] VITALS: BP 143/78
[2025-06-02] MEDS: TEFLARO 270 MG IV ×3 (00:52→17:28)
[2025-06-02 05:17] VITALS: BMI 32.5
[2025-06-02] MEDS: ROXICODONE 10 MG PO ×4 (06:26→20:04)
[2025-06-02 07:30] VITALS: BP 135/77
[2025-06-02] MEDS: PROTONIX 40 MG PO (09:05)
[2025-06-02] MEDS: CATAPRES 0.2 MG PO ×2 (09:05→19:56)
[2025-06-02] MEDS: SENOKOT 8.6 MG PO (09:06)
[2025-06-02] MEDS: ALDACTONE 50 MG PO (09:06)
[2025-06-02] MEDS: COREG 25 MG PO ×2 (09:06→19:55)
[2025-06-02] MEDS: COZAAR 100 MG PO (09:06)
[2025-06-02] MEDS: COLACE PO ×2 (09:07→19:59)
[2025-06-02] MEDS: MIRALAX PO (09:08)
[2025-06-02] MEDS: MYCOSTATIN ORAL SUSPENSION 5 ML PO ×4 (09:09→21:51)
[2025-06-02] MEDS: DAKIN'S SOLUTION 0.125% 1/4 STRENGTH 10 ML TOPICAL (10:35)
[2025-06-02] MEDS: DESENEX/MITRAZOL/ZEASORB 1 APPLIC TOPICAL ×2 (10:37→19:56)
--- NOTE | 2025-06-02 11:07 | W.PN.HOSP.TC ---
Today's Communication/Plan
-
Continue current antibiotics
Ongoing disposition efforts
Assessment / Plan
Assessment / Plan
A/P:
Mr. Patrice Mera is a 50 yo man with hx polysubstance abuse, prior CVA (thalamic bleed; right hemiplegia), essential HTN, admitted 04/30 with septic shock 2/2 MRSA bacteremia, SINDY with anion gap metabolic acidosis and hypoxemic respiratory failure.
He is found to have septic joint right knee and development of necrotizing fasciitis.
#Acute respiratory failure, VDRF
-On 1 lt oxygen currently
-CT scan of the chest 05/27 shows stability
prior to today:
-patient was intubated on admission for multiple reasons in setting of septic shock, pneumonia, septic emboli
-CTA without PE
-s/p self extubation on 05/05
- Without respiratory distress ; currently on at 1 L of FiO2
-CT Chest -noted with bilateral cavitary nodules -repeat chest CT next week to follow on it
-Methylprednisolone 40 mg IV daily started on 05/11/25 per pulmonary-getting switched to oral prednisone for 5 days-last day 05/20.
-Encouraged to use Acapella or incentive spirometry
#MRSA Bacteremia
Surveillance blood cultures are negative
Continue antibiotics per ID-on ceftaroline and daptomycin
prior to today:
Septic Shock - patient was on Levo, Vaso, Epi, Giapreza; remains off pressors
Septic Arthritis Right Knee
Necrotizing Fasciitis right medial thigh and calf
- JEAN 05/06 without e/o vegetation
- Right knee joint aspirate positive for MRSA 05/06
- Exam 05/07 with new concern for necrotizing fasciitis right medial thigh and calf Daily wound care and packing-of the 2 wounds
- Appreciate general surgery and ortho, patient is s/p I&D of necrotizing soft tissue infection and washout right knee on 05/07/25
- 05/07 antibiotics changed to IV Daptomycin Teflaro started on 05/11/2025
- Last positive Blood cultures from 05/09, negative since 05/11/25.
-Blood pressure stable. White count improving -follow for now
#Right second toe infection Gangrene
- stable
prior to today:
-Appreciate ID and Podiatry
-Antibiotics as above
-Arterial US with multiphasic waveforms
-Wound care Betadine soaked gauze to toe - change every day
-S/P Right 2nd toe amputation secondary to gangrenous changes with exposed bone 05/09/25
# Acute kidney injury - ATN in setting of septic shock
Cr stable
prior to today:
Metabolic Acidosis Resolved
-Patient briefly required CRRT but could not tolerate long
-Ultrasound of the kidneys without obstruction
-Appreciate Renal
-SINDY now resolved
-Cheng discontinued on 05/06
- Creatinine stable
# Anemia secondary to acute illness. H&H stable
# Thrombocytosis secondary to infection-resolved
# Anasarca
# Hypoalbuminemia
# Drug abuse urine drug screen positive for Fentanyl, Benzos, Amphetamines and Methamphetamines
Decreased oxycodone from 20 to 10 and from 10 to 5 and space out Ativan from q 4 hr to bid as needed and tolerating well
prior to today:
Patient was discharged to a rehab last admission however he stayed there only for 2 days and signed himself out
# Multidrug resistant hypertension-currently blood pressure stable without medicines.
Stable
prior to today:
Patient was on Coreg, losartan, clonidine, Aldactone as outpatient.
- Patient back on clonidine, spironolactone, losartan, Coreg.
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 Transferred to [place] . Pt says he was there for 3 months and has weakness of right side and facial droop.
stable
prior to today:
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
*confirmed cannot get MRI here given shunt
#Vitamin D deficiency-continue replacement
#Chronic back pain
#Morbid obesity with a BMI of 35- Weight loss recommended
#History of nephrolithiasis
#Possible sleep apnea-needs outpatient study as OP.
#ADHD
#Hepatic steatosis per prior imaging-outpatient follow-up
#Active smoker-cessation counseling when able
#DVT prophylaxis-Lovenox
#Full code
CW IV abx regimen per ID
Medically stable for DC
Ongoing dispo efforts
Anticipated Discharge: Within 24 hours
Subjective/Interval History
-
Date of Service: June 02, 2025
No overnight events.
Denies shortness of breath or chest pain. No nausea or vomiting. Tolerating diet. Denies constipation.
Objective Data
-
Vital Signs:
Vital Signs
Temp Pulse Resp BP Pulse Ox
97.9 F 81 16 135/77 94
06/02/25 07:30 06/02/25 07:30 06/02/25 07:30 06/02/25 09:05 06/02/25 07:30
I&O
06/01/25 06/02/25 06/03/25
06:59 06:59 06:59
Intake Total 2400 / 2400 1920 / 1920
Output Total 2925 / 2925 2100 / 2100
Balance -525 / -525 -180 / -180
Physical Exam
-
General: Comfortable
Respiratory: Non Labored Respirations; Negative Accessory Resp Muscle Use
Cardiac: Regular Rhythm and S1/S2; Negative Tachycardic
Neuro: AO x 3
Psych: Calm; Negative Confused
[2025-06-02 15:07] VITALS: BP 122/71
[2025-06-02] MEDS: CUBICIN 130 MG IV (16:28)
[2025-06-02] MEDS: LOVENOX 40 MG SC (17:31)
[2025-06-02] MEDS: HYDROPHOR 1 APPLIC TOPICAL (17:33)
[2025-06-02 19:54] VITALS: BP 153/81
[2025-06-02] MEDS: SENOKOT PO (19:59)
[2025-06-02] MEDS: ATIVAN 0.5 MG PO (22:20)
[2025-06-02] MEDS: ATIVAN PO (22:20)
[2025-06-02 23:15] VITALS: BP 142/85
[2025-06-03] MEDS: TEFLARO 270 MG IV ×4 (00:01→23:53)
[2025-06-03] MEDS: ROXICODONE 10 MG PO ×4 (00:02→20:44)
--- NOTE | 2025-06-03 00:23 | PTCARENOTE ---
During midnight administration of antibiotics, patients midline appears to be occluded as evidenced by inability to flush line prior to administration. Vascular access team engaged for evaluation and possible altepase administration.
--- NOTE | 2025-06-03 00:35 | PTCARENOTE ---
Vascular access present for evaluation. Malfunction corrected and antibiotics started.
[2025-06-03] MEDS: ATIVAN 0.5 MG PO (01:52)
[2025-06-03] MEDS: ROXICODONE 5 MG PO ×2 (05:02→15:07)
[2025-06-03 05:41] VITALS: BMI 31.8
[2025-06-03 07:45] VITALS: BP 167/87
[2025-06-03] MEDS: SENOKOT PO ×2 (08:10→20:45)
[2025-06-03] MEDS: MIRALAX PO (08:10)
[2025-06-03] MEDS: COLACE PO ×2 (08:10→20:44)
[2025-06-03] MEDS: MYCOSTATIN ORAL SUSPENSION 5 ML PO ×4 (08:12→22:40)
[2025-06-03] MEDS: PROTONIX 40 MG PO (08:12)
[2025-06-03] MEDS: CATAPRES 0.2 MG PO ×2 (08:13→20:44)
[2025-06-03] MEDS: COREG 25 MG PO ×2 (08:13→20:44)
[2025-06-03] MEDS: ALDACTONE 50 MG PO (08:13)
[2025-06-03] MEDS: COZAAR 100 MG PO (08:14)
[2025-06-03] MEDS: DESENEX/MITRAZOL/ZEASORB 1 APPLIC TOPICAL ×2 (08:21→21:34)
[2025-06-03] MEDS: HYDROPHOR 1 APPLIC TOPICAL (08:22)
[2025-06-03] MEDS: DAKIN'S SOLUTION 0.125% 1/4 STRENGTH 10 ML TOPICAL (08:23)
[2025-06-03 09:34] LABS: Hematocrit 30.3 % (39.0-52.0); Hemoglobin 9.4 g/dL (13.0-18.0); Mean Corp Hgb Conc. 31.0 g/dL (33.0-37.0); Mean Corpuscular Volume 87.1 fL (80.0-94.0); Platelet Count 398 10^3/uL (130-400); Red Cell Dist. Width 15.6 % (11.5-14.5)
[2025-06-03 10:00] LABS: ALT (SGPT) 11 U/L (0-50); AST (SGOT) 13 U/L (17-59); Albumin 3.4 g/dl (3.5-5.0); Alkaline Phosphatase 116 U/L (38-126); Blood Urea Nitrogen 13 mg/dl (9-20); Calcium 9.0 mg/dl (8.4-10.2); Carbon Dioxide 31 mmol/L (22-30); Chloride 98 mmol/L (98-107); Estimated Creatinine Clearance > 125 ml/min; Glucose 112 mg/dl (70-99); Potassium 4.2 mmol/L (3.5-5.1); Sodium 134 mmol/L (135-145); Total Protein 7.7 g/dl (6.3-8.2); eGFR > 60.00
--- NOTE | 2025-06-03 12:40 | CM ---
spoke with Amber from [facility]
she stated she will get back to CM today as the referral was under review by [facility]
CM spoke with Dayne [phone] at [facility], requested med list to be faxed to [phone] (CM faxed)
PLAN: SNF, once bed secured, will need to obtain ins auth
--- NOTE | 2025-06-03 13:01 | W.PN.HOSP.TC ---
Today's Communication/Plan
-
CW IV abx
Ongoing dispo efforts
Assessment / Plan
Assessment / Plan
A/P:
Mr. Patrice Mera is a 50 yo man with hx polysubstance abuse, prior CVA (thalamic bleed; right hemiplegia), essential HTN, admitted 04/30 with septic shock 2/2 MRSA bacteremia, SINDY with anion gap metabolic acidosis and hypoxemic respiratory failure.
He is found to have septic joint right knee and development of necrotizing fasciitis.
#Acute respiratory failure, VDRF
-remains On 1 lt oxygen currently. Denies SOB
-CT scan of the chest 05/27 shows stability
prior to today:
-patient was intubated on admission for multiple reasons in setting of septic shock, pneumonia, septic emboli
-CTA without PE
-s/p self extubation on 05/05
- Without respiratory distress ; currently on at 1 L of FiO2
-CT Chest -noted with bilateral cavitary nodules -repeat chest CT next week to follow on it
-Methylprednisolone 40 mg IV daily started on 05/11/25 per pulmonary-getting switched to oral prednisone for 5 days-last day 05/20.
-Encouraged to use Acapella or incentive spirometry
#MRSA Bacteremia
Surveillance blood cultures are negative
Continue antibiotics per ID-on ceftaroline and daptomycin
CMP and CPK are ok
prior to today:
Septic Shock - patient was on Levo, Vaso, Epi, Giapreza; remains off pressors
Septic Arthritis Right Knee
Necrotizing Fasciitis right medial thigh and calf
- JEAN 05/06 without e/o vegetation
- Right knee joint aspirate positive for MRSA 05/06
- Exam 05/07 with new concern for necrotizing fasciitis right medial thigh and calf Daily wound care and packing-of the 2 wounds
- Appreciate general surgery and ortho, patient is s/p I&D of necrotizing soft tissue infection and washout right knee on 05/07/25
- 05/07 antibiotics changed to IV Daptomycin Teflaro started on 05/11/2025
- Last positive Blood cultures from 05/09, negative since 05/11/25.
-Blood pressure stable. White count improving -follow for now
#Right second toe infection Gangrene
- stable
prior to today:
-Appreciate ID and Podiatry
-Antibiotics as above
-Arterial US with multiphasic waveforms
-Wound care Betadine soaked gauze to toe - change every day
-S/P Right 2nd toe amputation secondary to gangrenous changes with exposed bone 05/09/25
# Acute kidney injury - ATN in setting of septic shock
Cr stable
prior to today:
Metabolic Acidosis Resolved
-Patient briefly required CRRT but could not tolerate long
-Ultrasound of the kidneys without obstruction
-Appreciate Renal
-SINDY now resolved
-Cheng discontinued on 05/06
- Creatinine stable
# Anemia secondary to acute illness. H&H stable
# Thrombocytosis secondary to infection-resolved
# Anasarca
# Hypoalbuminemia
# Drug abuse urine drug screen positive for Fentanyl, Benzos, Amphetamines and Methamphetamines
Decreased oxycodone from 20 to 10 and from 10 to 5 and space out Ativan from q 4 hr to bid as needed and tolerating well
prior to today:
Patient was discharged to a rehab last admission however he stayed there only for 2 days and signed himself out
# Multidrug resistant hypertension-currently blood pressure stable without medicines.
Stable
prior to today:
Patient was on Coreg, losartan, clonidine, Aldactone as outpatient.
- Patient back on clonidine, spironolactone, losartan, Coreg.
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 Transferred to [place] . Pt says he was there for 3 months and has weakness of right side and facial droop.
stable
prior to today:
s/p TIE LOADER shunt at [place]
*confirmed cannot get MRI here given shunt
#Vitamin D deficiency-continue replacement
#Chronic back pain
#Morbid obesity with a BMI of 35- Weight loss recommended
#History of nephrolithiasis
#Possible sleep apnea-needs outpatient study as OP.
#ADHD
#Hepatic steatosis per prior imaging-outpatient follow-up
#Active smoker-cessation counseling when able
#DVT prophylaxis-Lovenox
#Full code
CW IV abx regimen per ID
Remains medically stable for DC
DW CM -ongoing dispo efforts
Anticipated Discharge: Within 24 hours
Subjective/Interval History
-
Date of Service: June 03, 2025
Feels ok
Using pain meds for rt knee pain
No fever or chils
Denies SOB or CP
Objective Data
-
Labs:
Laboratory Results
06/03/25
09:24
WBC 6.7
Hgb 9.4 L
Hct 30.3 L
Plt Count 398
Sodium 134 L
Potassium 4.2
Chloride 98
Carbon Dioxide 31 H
BUN 13
Creatinine 0.6 L
Glucose 112 H
Calcium 9.0
Total Bilirubin 0.6
AST 13 L
ALT 11
Alkaline Phosphatase 116
Vital Signs:
Vital Signs
Temp Pulse Resp BP Pulse Ox
98.7 F 91 16 167/67 91
06/03/25 07:45 06/03/25 07:45 06/03/25 07:45 06/03/25 08:13 06/03/25 07:45
I&O
06/02/25 06/03/25 06/04/25
06:59 06:59 06:59
Intake Total 1920 / 1920 1200 / 1200
Output Total 2100 / 2100 1150 / 1150
Balance -180 / -180 50 / 50
Physical Exam
-
General: No Apparent Distress
HEENT: Moist Mucous Membranes
Respiratory: Clear to Auscultation (anteriorly) and Non Labored Respirations; Negative Accessory Resp Muscle Use
Cardiac: Regular Rhythm and S1/S2
GI: Soft
Neuro: AO x 3
Data Reviewed
-
Labs: Labs Reviewed by me
[2025-06-03] MEDS: CUBICIN 130 MG IV (14:15)
[2025-06-03 15:09] VITALS: BP 126/72
[2025-06-03 15:19] VITALS: BP 128/68
[2025-06-03 15:37] VITALS: BP 128/68; PULSE 80; O2SAT 95
[2025-06-03] MEDS: LOVENOX 40 MG SC (17:51)
[2025-06-03 23:09] VITALS: BP 142/80
[2025-06-04] MEDS: ROXICODONE 10 MG PO ×6 (00:41→22:28)
[2025-06-04 05:58] VITALS: BMI 32.0
[2025-06-04 07:00] VITALS: BP 136/71
[2025-06-04] MEDS: COREG 25 MG PO ×2 (08:07→22:27)
[2025-06-04] MEDS: PROTONIX 40 MG PO (08:07)
[2025-06-04] MEDS: CATAPRES 0.2 MG PO ×2 (08:07→22:27)
[2025-06-04] MEDS: MYCOSTATIN ORAL SUSPENSION 5 ML PO ×4 (08:07→22:29)
[2025-06-04] MEDS: ALDACTONE 50 MG PO (08:07)
[2025-06-04] MEDS: TEFLARO 270 MG IV ×3 (08:08→23:56)
[2025-06-04] MEDS: COZAAR 100 MG PO (08:08)
[2025-06-04] MEDS: ROXICODONE 5 MG PO (08:25)
[2025-06-04] MEDS: SENOKOT PO ×2 (09:11→22:28)
[2025-06-04] MEDS: COLACE PO ×2 (09:11→22:27)
[2025-06-04] MEDS: MIRALAX PO (09:11)
--- NOTE | 2025-06-04 11:21 | W.PN.ID1 ---
Date of Service
Date of Service: June 04, 2025
Today's Communication
Continue current course of antibiotics
Assessment / Plan
Sustained (04/30 - 05/09) complicated MRSA bacteremia
- Blood cultures clear as of 05/11/2025
Pulmonary septic emboli
Cavitary MRSA PNA
Septic arthritis - right knee; s/p washout
Right thigh & calf necrotizing soft tissue infection
Right second toe infection/gangrene/osteomyelitis; s/p amputation
Fever -resolving
Leukocytosis -stable
s/p Hypoxemic respiratory failure, self extubated 05/05
SINDY; resolved
Substance abuse (UDS with fentanyl, amphetamine, methamphetamine, benzodiazepine)
Hx CVA (thalamic bleed) with right hemiplegia
Chronic back pain
Recommendations:
05/01/20 ECHO (TTE) without valvular disease. 05/06/25 ECHO (JEAN): no valvular vegetation noted.
Sputum cx: MRSA
Blood cx's negative 05/11 forward
05/06 R knee fluid: 41,220 WBC, 54% polys, neg crystals.
Synovial cx : MRSA
05/07/25 - s/p washout of R knee (+PUS). Cx MRSA
05/07/25 - s/p I+D right thigh and calf. Cx MRSA
05/09/25 s/p R 2nd toe amputation
Continue Daptomycin IV (d#26).
- Monitor CK while on Dapto. Currently stable.
Continue ceftaroline (d#22)
Continue abx at least through 06/22/2025
Follow WBC count, platelets, CPK, temperature, O2 requirements.
White count stable today. Continuing to follow.
Disposition efforts ongoing.
����������������������������������������������������������
Chief Complaint
-: Clinical Sepsis, Pneumonia and Bacteremia
Vital Signs / Physical Exam
Vital Signs
Vital Signs
Temp Pulse Resp BP Pulse Ox
98.2 F 80 20 136/71 94
06/04/25 07:00 06/04/25 08:07 06/04/25 07:00 06/04/25 08:07 06/04/25 07:00
Physical Exam
Constitutional: No Acute Distress, Comfortable, Chronically Ill and Non-toxic
Cardiovascular: S1/S2; Negative S3/S4
Pulmonary: Non Labored
Gastrointestinal: Non Distended
Extremities: Edema, Venous Insufficiency (Bilateral lower extremities) and Other (LE stasis dermatitis)
Wound: Other (Knee wound; dressing intact. Right thigh wounds with intact dressing. Right foot dressing intact. No periwound erythema.)
Psychological: Calm
Objective Data
Lab Data
Lab Results
06/03/25 09:24
06/03/25 09:24
PT 20.0 Sec (11.4-14.6) H 04/30/25 19:46
INR 1.65 04/30/25 19:46
APTT Cancelled 05/04/25 14:45
Estimated Creat Clear > 125 ml/min 06/03/25 09:24
Lactic Acid 1.9 mmol/L (0.7-2.0) 05/01/25 12:18
Total Bilirubin 0.6 mg/dl (0.2-1.3) 06/03/25 09:24
AST 13 U/L (17-59) L 06/03/25 09:24
ALT 11 U/L (0-50) 06/03/25 09:24
Alkaline Phosphatase 116 U/L (38-126) 06/03/25 09:24
Most recent labs reviewed.
Micro Results:
05/16/25 04:52 Blood Culture - Final
Blood/Venous No Growth - Final Report
05/15/25 05:39 Blood Culture - Final
Blood/Venous No Growth - Final Report
05/14/25 03:20 Blood Culture - Final
Blood/Venous No Growth - Final Report
05/13/25 09:45 Blood Culture - Final
Blood/Venous No Growth - Final Report
05/12/25 05:34 Blood Culture - Final
Blood/Venous No Growth - Final Report
05/11/25 12:40 Blood Culture - Final
Blood/Venous No Growth - Final Report
05/09/25 04:01 Blood Culture - Final
Blood/Venous Staph aureus MRSA
Gram Stain - Final
05/08/25 04:21 Blood Culture - Final
Blood/Venous Staph aureus MRSA
Gram Stain - Final
05/07/25 04:55 Blood Culture - Final
Blood/Venous Staph aureus MRSA
Gram Stain - Final
05/06/25 08:16 Blood Culture - Final
Blood/Venous Staph aureus MRSA
Gram Stain - Final
05/07/25 18:35 Wound Culture - Final
Knee - Right Staph aureus MRSA
Gram Stain - Final
05/07/25 18:35 Anaerobic Culture - Final
Knee - Right NO ANAEROBES ISOLATED
05/07/25 18:35 Wound Culture - Final
Leg - Right Staph aureus MRSA
Gram Stain - Final
05/07/25 18:35 Anaerobic Culture - Final
Leg - Right NO ANAEROBES ISOLATED
05/05/25 03:34 Blood Culture - Final
Blood/Venous No Growth - Final Report
05/03/25 04:25 Blood Culture - Final
Blood/Venous Staph aureus MRSA
Gram Stain - Final
05/02/25 03:16 Blood Culture - Final
Blood/Venous Staph aureus MRSA
Gram Stain - Final
05/04/25 03:13 Blood Culture - Final
Blood/Venous No Growth - Final Report
05/06/25 13:19 Body Fluid Culture - Final
Synovial Fluid Staph aureus MRSA
Gram Stain - Final
04/30/25 19:46 Blood Culture - Final
Blood/Venous Staph aureus MRSA
Gram Stain - Final
05/04/25 09:25 Respiratory Culture - Final
Endotracheal Staph aureus MRSA
Gram Stain - Final
05/01/25 17:45 Blood Culture - Final
Blood/Venous Staph aureus MRSA
Gram Stain - Final
04/30/25 19:46 Blood Culture - Final
Blood/Venous Staph aureus MRSA
Gram Stain - Final
05/01/25 01:32 Urine Culture - Final
Urine Yeast
05/01/25 01:17 Blood Parasites Smear - Final
Blood/Venous
04/30/25 23:02 Influenza Types A & B (GIORGIO) - Final
Nasal Swab Negative for Influenza A & B, NAAT
Negative results must be combined with clinical observations
and patient history.
Nucleic Acid Amplification test (NAAT)performed on the
[employer] Capt[employer] platform.
Imaging:
05/27/2025 CT chest without contrast: overall decreased bilateral consolidation. Decreased or unchanged size of bilateral nodules and cavitary lesions, with decreased wall thickening of the cavitary lesions. Small bilateral pleural effusions noted,
decreased on the right and unchanged on the left. No abnormally enlarged mediastinal lymph nodes identified. No pericardial effusion. Please see full dictation for additional detail.
05/16/2025 CXR (portable): extensive heterogeneous opacities bilaterally. A 6.2 cm cavitary right lower lobe lesion again noted. No pneumothorax or pleural effusion. Mild cardiac enlargement.
05/12/2025 CXR (portable): improved aeration of the right upper lung compared to prior days imaging. Otherwise, extensive diffuse bilateral patchy, nodular and confluent airspace opacities.
05/02/25 CT RLE: Subcutaneous stranding within the soft tissues of the anterior right thigh, and [id number] anterior soft tissues. No drainable abscess is appreciated. Moderate suprapatellar joint effusion, with areas of loculation.
05/01/2025 ECHO (TTE): EF 55%. Normal biventricular size and systolic function. No significant valvular disease. No obvious vegetations.
05/01/2025 CXR (portable): bilateral interstitial and airspace disease noted which may reflect pulmonary edema or pneumonia. Small bilateral pleural effusions noted. Please see full dictation for additional detail.
05/01/2025 Abdominal x-ray. Enteric tube noted in stomach.
05/01/2025 Renal ultrasound: unremarkable renal ultrasound without hydronephrosis, contour deforming solid renal mass or echogenic shadowing foci to suggest renal calculi. Bilateral pleural effusions noted.
05/01/2025 Duplex ultrasound lower extremity: no evidence of DVT in the bilateral lower extremities
04/30/2025 X-ray right foot: soft tissue injury versus ulceration involving the second digit with soft tissue swelling. The cortex of the distal phalanx is indistinct and the possibility of osteomyelitis cannot be excluded. There is soft tissue
swelling of the first digit. No radiographic evidence to suggest osteomyelitis. Please see full dictation for additional detail.
--- NOTE | 2025-06-04 12:23 | W.PN.HOSP.TC ---
Today's Communication/Plan
-
CW IV abx
Ongoing dispo efforts
Assessment / Plan
Assessment / Plan
A/P:
Mr. Patrice Mera is a 50 yo man with hx polysubstance abuse, prior CVA (thalamic bleed; right hemiplegia), essential HTN, admitted 04/30 with septic shock 2/2 MRSA bacteremia, SINDY with anion gap metabolic acidosis and hypoxemic respiratory failure.
He is found to have septic joint right knee and development of necrotizing fasciitis.
#Acute respiratory failure, VDRF
-remains On 1 lt oxygen currently. Denies SOB
-CT scan of the chest 05/27 shows stability
prior to today:
-patient was intubated on admission for multiple reasons in setting of septic shock, pneumonia, septic emboli
-CTA without PE
-s/p self extubation on 05/05
- Without respiratory distress ; currently on at 1 L of FiO2
-CT Chest -noted with bilateral cavitary nodules -repeat chest CT next week to follow on it
-Methylprednisolone 40 mg IV daily started on 05/11/25 per pulmonary-getting switched to oral prednisone for 5 days-last day 05/20.
-Encouraged to use Acapella or incentive spirometry
#MRSA Bacteremia
Surveillance blood cultures are negative
Continue antibiotics per ID-on ceftaroline and daptomycin
CMP and CPK are ok
prior to today:
Septic Shock - patient was on Levo, Vaso, Epi, Giapreza; remains off pressors
Septic Arthritis Right Knee
Necrotizing Fasciitis right medial thigh and calf
- JEAN 05/06 without e/o vegetation
- Right knee joint aspirate positive for MRSA 05/06
- Exam 05/07 with new concern for necrotizing fasciitis right medial thigh and calf Daily wound care and packing-of the 2 wounds
- Appreciate general surgery and ortho, patient is s/p I&D of necrotizing soft tissue infection and washout right knee on 05/07/25
- 05/07 antibiotics changed to IV Daptomycin Teflaro started on 05/11/2025
- Last positive Blood cultures from 05/09, negative since 05/11/25.
-Blood pressure stable. White count improving -follow for now
#Right second toe infection Gangrene
- stable
prior to today:
-Appreciate ID and Podiatry
-Antibiotics as above
-Arterial US with multiphasic waveforms
-Wound care Betadine soaked gauze to toe - change every day
-S/P Right 2nd toe amputation secondary to gangrenous changes with exposed bone 05/09/25
# Acute kidney injury - ATN in setting of septic shock
Cr stable
prior to today:
Metabolic Acidosis Resolved
-Patient briefly required CRRT but could not tolerate long
-Ultrasound of the kidneys without obstruction
-Appreciate Renal
-SINDY now resolved
-Cheng discontinued on 05/06
- Creatinine stable
# Anemia secondary to acute illness. H&H stable
# Thrombocytosis secondary to infection-resolved
# Anasarca
# Hypoalbuminemia
# Drug abuse urine drug screen positive for Fentanyl, Benzos, Amphetamines and Methamphetamines
Decreased oxycodone from 20 to 10 and from 10 to 5 and space out Ativan from q 4 hr to bid as needed and tolerating well
prior to today:
Patient was discharged to a rehab last admission however he stayed there only for 2 days and signed himself out
# Multidrug resistant hypertension-currently blood pressure stable without medicines.
Stable
prior to today:
Patient was on Coreg, losartan, clonidine, Aldactone as outpatient.
- Patient back on clonidine, spironolactone, losartan, Coreg.
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 Transferred to [place] . Pt says he was there for 3 months and has weakness of right side and facial droop.
stable
prior to today:
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
*confirmed cannot get MRI here given shunt
#Vitamin D deficiency-continue replacement
#Chronic back pain
#Morbid obesity with a BMI of 35- Weight loss recommended
#History of nephrolithiasis
#Possible sleep apnea-needs outpatient study as OP.
#ADHD
#Hepatic steatosis per prior imaging-outpatient follow-up
#Active smoker-cessation counseling when able
#DVT prophylaxis-Lovenox
#Full code
CW IV abx regimen per ID
Remains medically stable for DC
DW CM -ongoing dispo efforts
Anticipated Discharge: Within 24 hours
Subjective/Interval History
-
Date of Service: June 04, 2025
No overnight events
Denies SOB
Tolerating diet
Denies fever chills
Needing pain med for his rt knee
Objective Data
-
Vital Signs:
Vital Signs
Temp Pulse Resp BP Pulse Ox
98.2 F 80 20 136/71 94
06/04/25 07:00 06/04/25 08:07 06/04/25 07:00 06/04/25 08:07 06/04/25 07:00
I&O
06/03/25 06/04/25 06/05/25
06:59 06:59 06:59
Intake Total 1200 / 1200 1440 / 1440
Output Total 1150 / 1150 1500 / 1500
Balance 50 / 50 -60 / -60
Physical Exam
-
General: Comfortable
Respiratory: Non Labored Respirations; Negative Accessory Resp Muscle Use
Cardiac: Regular Rhythm and S1/S2; Negative Tachycardic
Neuro: AO x 3
Psych: Calm
[2025-06-04] MEDS: DESENEX/MITRAZOL/ZEASORB 1 APPLIC TOPICAL (13:44)
[2025-06-04] MEDS: HYDROPHOR 1 APPLIC TOPICAL (13:44)
[2025-06-04] MEDS: DAKIN'S SOLUTION 0.125% 1/4 STRENGTH 10 ML TOPICAL (13:45)
[2025-06-04] MEDS: CUBICIN 130 MG IV (14:12)
[2025-06-04 15:00] VITALS: BP 112/67
--- NOTE | 2025-06-04 16:08 | CM ---
called Amber at [facility] to follow up on if they can accept - mailbox full - will call tomorrow
Additional referrals sent in [facility]port
PLAN: SNF, continue bed search for acceptance/bed availability
[2025-06-04] MEDS: LOVENOX 40 MG SC (18:19)
[2025-06-04 22:25] VITALS: BP 125/75
[2025-06-04] MEDS: DESENEX/MITRAZOL/ZEASORB TOPICAL (22:28)
[2025-06-04 23:04] VITALS: BP 125/70
[2025-06-05] MEDS: ROXICODONE 10 MG PO ×5 (02:31→21:26)
[2025-06-05 06:00] VITALS: BMI 31.4
[2025-06-05 07:00] VITALS: BP 118/72
[2025-06-05] MEDS: COZAAR 100 MG PO (08:07)
[2025-06-05] MEDS: MYCOSTATIN ORAL SUSPENSION 5 ML PO ×4 (08:07→21:25)
[2025-06-05] MEDS: CATAPRES 0.2 MG PO ×2 (08:07→21:25)
[2025-06-05] MEDS: ALDACTONE 50 MG PO (08:10)
[2025-06-05] MEDS: PROTONIX 40 MG PO (08:10)
[2025-06-05] MEDS: TEFLARO 270 MG IV ×3 (08:11→23:23)
[2025-06-05] MEDS: MIRALAX PO (08:11)
[2025-06-05] MEDS: COREG 25 MG PO ×2 (08:11→21:25)
[2025-06-05] MEDS: COLACE PO ×2 (08:11→21:22)
[2025-06-05] MEDS: SENOKOT PO ×2 (08:11→21:22)
[2025-06-05] MEDS: CUBICIN 130 MG IV (13:09)
--- NOTE | 2025-06-05 14:43 | W.PN.HOSP.TC ---
Today's Communication/Plan
-
Ongoing disposition efforts
Assessment / Plan
Assessment / Plan
A/P:
Mr. Patrice Mera is a 50 yo man with hx polysubstance abuse, prior CVA (thalamic bleed; right hemiplegia), essential HTN, admitted 04/30 with septic shock 2/2 MRSA bacteremia, SINDY with anion gap metabolic acidosis and hypoxemic respiratory failure.
He is found to have septic joint right knee and development of necrotizing fasciitis.
#Acute respiratory failure, VDRF
-remains On 1 lt oxygen currently. Denies SOB
-CT scan of the chest 05/27 shows stability
prior to today:
-patient was intubated on admission for multiple reasons in setting of septic shock, pneumonia, septic emboli
-CTA without PE
-s/p self extubation on 05/05
-CT Chest -noted with bilateral cavitary nodules -repeat chest CT next week to follow on it
-Methylprednisolone 40 mg IV daily started on 05/11/25 per pulmonary-getting switched to oral prednisone for 5 days-last day 05/20.
#MRSA Bacteremia
Surveillance blood cultures are negative
Continue antibiotics per ID-on ceftaroline and daptomycin
CMP and CPK are ok
prior to today:
Septic Shock - patient was on Levo, Vaso, Epi, Giapreza; remains off pressors
Septic Arthritis Right Knee
Necrotizing Fasciitis right medial thigh and calf
- JEAN 05/06 without e/o vegetation
- Right knee joint aspirate positive for MRSA 05/06
- Exam 05/07 with new concern for necrotizing fasciitis right medial thigh and calf Daily wound care and packing-of the 2 wounds
- Appreciate general surgery and ortho, patient is s/p I&D of necrotizing soft tissue infection and washout right knee on 05/07/25
- 05/07 antibiotics changed to IV Daptomycin Teflaro started on 05/11/2025
- Last positive Blood cultures from 05/09, negative since 05/11/25.
-Blood pressure stable. White count improving -follow for now
#Right second toe infection Gangrene
- stable
prior to today:
-Appreciate ID and Podiatry
-Antibiotics as above
-Arterial US with multiphasic waveforms
-Wound care Betadine soaked gauze to toe - change every day
-S/P Right 2nd toe amputation secondary to gangrenous changes with exposed bone 05/09/25
# Acute kidney injury - ATN in setting of septic shock
Cr stable
prior to today:
Metabolic Acidosis Resolved
-Patient briefly required CRRT but could not tolerate long
-Ultrasound of the kidneys without obstruction
-Appreciate Renal
-SINDY now resolved
-Cheng discontinued on 05/06
- Creatinine stable
# Anemia secondary to acute illness. H&H stable
# Thrombocytosis secondary to infection-resolved
# Anasarca
# Hypoalbuminemia
# Drug abuse urine drug screen positive for Fentanyl, Benzos, Amphetamines and Methamphetamines
Decreased oxycodone from 20 to 10 and from 10 to 5 and space out Ativan from q 4 hr to bid as needed and tolerating well
prior to today:
Patient was discharged to a rehab last admission however he stayed there only for 2 days and signed himself out
# Multidrug resistant hypertension-currently blood pressure stable without medicines.
Stable
prior to today:
Patient was on Coreg, losartan, clonidine, Aldactone as outpatient.
- Patient back on clonidine, spironolactone, losartan, Coreg.
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 Transferred to [place] . Pt says he was there for 3 months and has weakness of right side and facial droop.
stable
prior to today:
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
*confirmed cannot get MRI here given shunt
#Vitamin D deficiency-continue replacement
#Chronic back pain
#Morbid obesity with a BMI of 35- Weight loss recommended
#History of nephrolithiasis
#Possible sleep apnea-needs outpatient study as OP.
#ADHD
#Hepatic steatosis per prior imaging-outpatient follow-up
#Active smoker-cessation counseling when able
#DVT prophylaxis-Lovenox
#Full code
CW IV abx regimen per ID
Remains medically stable for DC
DW CM -ongoing dispo efforts
Anticipated Discharge: 24 - 48 hours
Subjective/Interval History
-
Date of Service: June 05, 2025
No overnight events.
Denies shortness of breath.
No nausea vomiting. Tolerating diet.
Objective Data
-
Vital Signs:
Vital Signs
Temp Pulse Resp BP Pulse Ox
98.7 F 74 20 118/72 94
06/05/25 07:00 06/05/25 08:11 06/05/25 07:00 06/05/25 08:11 06/05/25 07:00
I&O
06/04/25 06/05/25 06/06/25
06:59 06:59 06:59
Intake Total 1440 / 1440 700 / 700 480 / 480
Output Total 1500 / 1500 700 / 700 950 / 950
Balance -60 / -60 0 / 0 -470 / -470
Physical Exam
-
General: Comfortable
Respiratory: Non Labored Respirations; Negative Accessory Resp Muscle Use
Cardiac: Regular Rhythm and S1/S2; Negative Tachycardic
Neuro: AO x 3
Psych: Calm
[2025-06-05 14:50] VITALS: BP 121/71
[2025-06-05 15:00] VITALS: BP 125/74
[2025-06-05 15:21] VITALS: BP 121/71
[2025-06-05] MEDS: HYDROPHOR 1 APPLIC TOPICAL (15:40)
[2025-06-05] MEDS: DESENEX/MITRAZOL/ZEASORB 1 APPLIC TOPICAL (15:41)
[2025-06-05] MEDS: DAKIN'S SOLUTION 0.125% 1/4 STRENGTH 473 ML TOPICAL (15:41)
[2025-06-05] MEDS: LOVENOX 40 MG SC (17:23)
[2025-06-05] MEDS: DESENEX/MITRAZOL/ZEASORB TOPICAL (21:22)
[2025-06-05 23:15] VITALS: BP 120/72
[2025-06-06] MEDS: ROXICODONE 10 MG PO ×5 (03:29→20:35)
[2025-06-06 06:00] VITALS: BMI 31.5
[2025-06-06 07:00] VITALS: BP 120/71
[2025-06-06] MEDS: SENOKOT PO ×2 (07:57→20:38)
[2025-06-06] MEDS: MIRALAX PO (07:57)
[2025-06-06] MEDS: MYCOSTATIN ORAL SUSPENSION 5 ML PO ×4 (08:01→21:33)
[2025-06-06] MEDS: PROTONIX 40 MG PO (08:02)
[2025-06-06] MEDS: COREG 25 MG PO ×2 (08:02→20:35)
[2025-06-06] MEDS: CATAPRES 0.2 MG PO ×2 (08:08→20:37)
[2025-06-06] MEDS: COZAAR 100 MG PO (08:08)
[2025-06-06] MEDS: ALDACTONE 50 MG PO (08:08)
[2025-06-06] MEDS: COLACE PO ×2 (08:09→20:38)
[2025-06-06] MEDS: TEFLARO 270 MG IV ×2 (08:10→16:07)
--- NOTE | 2025-06-06 10:52 | W.PN.HOSP.TC ---
Today's Communication/Plan
-
CW ABX IV
Await placement
Assessment / Plan
Assessment / Plan
A/P:
Mr. Patrice Mera is a 50 yo man with hx polysubstance abuse, prior CVA (thalamic bleed; right hemiplegia), essential HTN, admitted 04/30 with septic shock 2/2 MRSA bacteremia, SINDY with anion gap metabolic acidosis and hypoxemic respiratory failure.
He is found to have septic joint right knee and development of necrotizing fasciitis.
#Acute respiratory failure, VDRF
-remains On 1 lt oxygen currently. Denies SOB
-CT scan of the chest 05/27 shows stability
prior to today:
-patient was intubated on admission for multiple reasons in setting of septic shock, pneumonia, septic emboli
-CTA without PE
-s/p self extubation on 05/05
-CT Chest -noted with bilateral cavitary nodules -repeat chest CT next week to follow on it
-Methylprednisolone 40 mg IV daily started on 05/11/25 per pulmonary-getting switched to oral prednisone for 5 days-last day 05/20.
#MRSA Bacteremia
Surveillance blood cultures are negative
Continue antibiotics per ID-on ceftaroline and daptomycin
CMP and CPK are ok
prior to today:
Septic Shock - patient was on Levo, Vaso, Epi, Giapreza; remains off pressors
Septic Arthritis Right Knee
Necrotizing Fasciitis right medial thigh and calf
- JEAN 05/06 without e/o vegetation
- Right knee joint aspirate positive for MRSA 05/06
- Exam 05/07 with new concern for necrotizing fasciitis right medial thigh and calf Daily wound care and packing-of the 2 wounds
- Appreciate general surgery and ortho, patient is s/p I&D of necrotizing soft tissue infection and washout right knee on 05/07/25
- 05/07 antibiotics changed to IV Daptomycin Teflaro started on 05/11/2025
- Last positive Blood cultures from 05/09, negative since 05/11/25.
-Blood pressure stable. White count improving -follow for now
#Right second toe infection Gangrene
- stable
prior to today:
-Appreciate ID and Podiatry
-Antibiotics as above
-Arterial US with multiphasic waveforms
-Wound care Betadine soaked gauze to toe - change every day
-S/P Right 2nd toe amputation secondary to gangrenous changes with exposed bone 05/09/25
# Acute kidney injury - ATN in setting of septic shock
Cr stable
prior to today:
Metabolic Acidosis Resolved
-Patient briefly required CRRT but could not tolerate long
-Ultrasound of the kidneys without obstruction
-Appreciate Renal
-SINDY now resolved
-Cheng discontinued on 05/06
- Creatinine stable
# Anemia secondary to acute illness. H&H stable
# Thrombocytosis secondary to infection-resolved
# Anasarca
# Hypoalbuminemia
# Drug abuse urine drug screen positive for Fentanyl, Benzos, Amphetamines and Methamphetamines
Decreased oxycodone from 20 to 10 and from 10 to 5 and space out Ativan from q 4 hr to bid as needed and tolerating well
prior to today:
Patient was discharged to a rehab last admission however he stayed there only for 2 days and signed himself out
# Multidrug resistant hypertension-currently blood pressure stable without medicines.
Stable
prior to today:
Patient was on Coreg, losartan, clonidine, Aldactone as outpatient.
- Patient back on clonidine, spironolactone, losartan, Coreg.
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 Transferred to [place] . Pt says he was there for 3 months and has weakness of right side and facial droop.
stable
prior to today:
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
*confirmed cannot get MRI here given shunt
#Vitamin D deficiency-continue replacement
#Chronic back pain
#Morbid obesity with a BMI of 35- Weight loss recommended
#History of nephrolithiasis
#Possible sleep apnea-needs outpatient study as OP.
#ADHD
#Hepatic steatosis per prior imaging-outpatient follow-up
#Active smoker-cessation counseling when able
#DVT prophylaxis-Lovenox
#Full code
CW IV abx regimen per ID
Remains medically stable for DC
DW CM again today -ongoing dispo efforts
Anticipated Discharge: > 48 hours
Subjective/Interval History
-
Date of Service: June 06, 2025
Objective Data
-
Vital Signs:
Vital Signs
Temp Pulse Resp BP Pulse Ox
97.9 F 75 18 120/71 95
06/06/25 07:00 06/06/25 08:02 06/06/25 07:00 06/06/25 08:02 06/06/25 07:00
I&O
06/05/25 06/06/25 06/07/25
06:59 06:59 06:59
Intake Total 700 / 700 1780 / 1780
Output Total 700 / 700 3100 / 3100
Balance 0 / 0 -1320 / -1320
--- NOTE | 2025-06-06 11:21 | W.PN.ID1 ---
Date of Service
Date of Service: June 06, 2025
Today's Communication
Continue antibiotics.
Assessment / Plan
Sustained (04/30 - 05/09) complicated MRSA bacteremia
- Blood cultures clear as of 05/11/2025
Pulmonary septic emboli
Cavitary MRSA PNA
Septic arthritis - right knee; s/p washout
Right thigh & calf necrotizing soft tissue infection
Right second toe infection/gangrene/osteomyelitis; s/p amputation
Fever -resolving
Leukocytosis -stable
s/p Hypoxemic respiratory failure, self extubated 05/05
SINDY; resolved
Substance abuse (UDS with fentanyl, amphetamine, methamphetamine, benzodiazepine)
Hx CVA (thalamic bleed) with right hemiplegia
Chronic back pain
Recommendations:
05/01/20 ECHO (TTE) without valvular disease. 05/06/25 ECHO (JEAN): no valvular vegetation noted.
Sputum cx: MRSA
Blood cx's negative 05/11 forward
05/06 R knee fluid: 41,220 WBC, 54% polys, neg crystals.
Synovial cx : MRSA
05/07/25 - s/p washout of R knee (+PUS). Cx MRSA
05/07/25 - s/p I+D right thigh and calf. Cx MRSA
05/09/25 s/p R 2nd toe amputation
Continue Daptomycin IV (d#28).
- Monitor CK while on Dapto. Currently stable.
Continue ceftaroline (d#24)
Continue abx at least through 06/22/2025
Follow WBC count, platelets, CPK, temperature, O2 requirements.
White count stable today. Continuing to follow.
Disposition efforts ongoing.
����������������������������������������������������������
Chief Complaint
-: Clinical Sepsis, Pneumonia and Bacteremia
Subjective / Review of Systems
Patient seen and examined. No significant issues overnight.
Vital Signs / Physical Exam
Vital Signs
Vital Signs
Temp Pulse Resp BP Pulse Ox
97.9 F 75 18 120/71 95
06/06/25 07:00 06/06/25 08:02 06/06/25 07:00 06/06/25 08:02 06/06/25 07:00
Physical Exam
Constitutional: No Acute Distress, Comfortable, Chronically Ill and Non-toxic
Cardiovascular: S1/S2; Negative S3/S4
Pulmonary: Non Labored
Gastrointestinal: Non Distended
Extremities: Edema, Venous Insufficiency (Bilateral lower extremities) and Other (LE stasis dermatitis)
Wound: Other (Knee wound; dressing intact. Right thigh wounds with intact dressing. Right foot dressing intact. No periwound erythema.)
Psychological: Calm
Objective Data
Lab Data
Lab Results
06/03/25 09:24
06/03/25 09:24
PT 20.0 Sec (11.4-14.6) H 04/30/25 19:46
INR 1.65 04/30/25 19:46
APTT Cancelled 05/04/25 14:45
Estimated Creat Clear > 125 ml/min 06/03/25 09:24
Lactic Acid 1.9 mmol/L (0.7-2.0) 05/01/25 12:18
Total Bilirubin 0.6 mg/dl (0.2-1.3) 06/03/25 09:24
AST 13 U/L (17-59) L 06/03/25 09:24
ALT 11 U/L (0-50) 06/03/25 09:24
Alkaline Phosphatase 116 U/L (38-126) 06/03/25 09:24
Most recent labs reviewed.
Micro Results:
05/16/25 04:52 Blood Culture - Final
Blood/Venous No Growth - Final Report
05/15/25 05:39 Blood Culture - Final
Blood/Venous No Growth - Final Report
05/14/25 03:20 Blood Culture - Final
Blood/Venous No Growth - Final Report
05/13/25 09:45 Blood Culture - Final
Blood/Venous No Growth - Final Report
05/12/25 05:34 Blood Culture - Final
Blood/Venous No Growth - Final Report
05/11/25 12:40 Blood Culture - Final
Blood/Venous No Growth - Final Report
05/09/25 04:01 Blood Culture - Final
Blood/Venous Staph aureus MRSA
Gram Stain - Final
05/08/25 04:21 Blood Culture - Final
Blood/Venous Staph aureus MRSA
Gram Stain - Final
05/07/25 04:55 Blood Culture - Final
Blood/Venous Staph aureus MRSA
Gram Stain - Final
05/06/25 08:16 Blood Culture - Final
Blood/Venous Staph aureus MRSA
Gram Stain - Final
05/07/25 18:35 Wound Culture - Final
Knee - Right Staph aureus MRSA
Gram Stain - Final
05/07/25 18:35 Anaerobic Culture - Final
Knee - Right NO ANAEROBES ISOLATED
05/07/25 18:35 Wound Culture - Final
Leg - Right Staph aureus MRSA
Gram Stain - Final
05/07/25 18:35 Anaerobic Culture - Final
Leg - Right NO ANAEROBES ISOLATED
05/05/25 03:34 Blood Culture - Final
Blood/Venous No Growth - Final Report
05/03/25 04:25 Blood Culture - Final
Blood/Venous Staph aureus MRSA
Gram Stain - Final
05/02/25 03:16 Blood Culture - Final
Blood/Venous Staph aureus MRSA
Gram Stain - Final
05/04/25 03:13 Blood Culture - Final
Blood/Venous No Growth - Final Report
05/06/25 13:19 Body Fluid Culture - Final
Synovial Fluid Staph aureus MRSA
Gram Stain - Final
04/30/25 19:46 Blood Culture - Final
Blood/Venous Staph aureus MRSA
Gram Stain - Final
05/04/25 09:25 Respiratory Culture - Final
Endotracheal Staph aureus MRSA
Gram Stain - Final
05/01/25 17:45 Blood Culture - Final
Blood/Venous Staph aureus MRSA
Gram Stain - Final
04/30/25 19:46 Blood Culture - Final
Blood/Venous Staph aureus MRSA
Gram Stain - Final
05/01/25 01:32 Urine Culture - Final
Urine Yeast
05/01/25 01:17 Blood Parasites Smear - Final
Blood/Venous
04/30/25 23:02 Influenza Types A & B (GIORGIO) - Final
Nasal Swab Negative for Influenza A & B, NAAT
Negative results must be combined with clinical observations
and patient history.
Nucleic Acid Amplification test (NAAT)performed on the
[employer] platform.
Imaging:
05/27/2025 CT chest without contrast: overall decreased bilateral consolidation. Decreased or unchanged size of bilateral nodules and cavitary lesions, with decreased wall thickening of the cavitary lesions. Small bilateral pleural effusions noted,
decreased on the right and unchanged on the left. No abnormally enlarged mediastinal lymph nodes identified. No pericardial effusion. Please see full dictation for additional detail.
05/16/2025 CXR (portable): extensive heterogeneous opacities bilaterally. A 6.2 cm cavitary right lower lobe lesion again noted. No pneumothorax or pleural effusion. Mild cardiac enlargement.
05/12/2025 CXR (portable): improved aeration of the right upper lung compared to prior days imaging. Otherwise, extensive diffuse bilateral patchy, nodular and confluent airspace opacities.
05/02/25 CT RLE: Subcutaneous stranding within the soft tissues of the anterior right thigh, and [id number] anterior soft tissues. No drainable abscess is appreciated. Moderate suprapatellar joint effusion, with areas of loculation.
05/01/2025 ECHO (TTE): EF 55%. Normal biventricular size and systolic function. No significant valvular disease. No obvious vegetations.
05/01/2025 CXR (portable): bilateral interstitial and airspace disease noted which may reflect pulmonary edema or pneumonia. Small bilateral pleural effusions noted. Please see full dictation for additional detail.
05/01/2025 Abdominal x-ray. Enteric tube noted in stomach.
05/01/2025 Renal ultrasound: unremarkable renal ultrasound without hydronephrosis, contour deforming solid renal mass or echogenic shadowing foci to suggest renal calculi. Bilateral pleural effusions noted.
05/01/2025 Duplex ultrasound lower extremity: no evidence of DVT in the bilateral lower extremities
04/30/2025 X-ray right foot: soft tissue injury versus ulceration involving the second digit with soft tissue swelling. The cortex of the distal phalanx is indistinct and the possibility of osteomyelitis cannot be excluded. There is soft tissue
swelling of the first digit. No radiographic evidence to suggest osteomyelitis. Please see full dictation for additional detail.
[2025-06-06] MEDS: HYDROPHOR 1 APPLIC TOPICAL (12:38)
[2025-06-06] MEDS: DESENEX/MITRAZOL/ZEASORB 1 APPLIC TOPICAL ×2 (12:38→20:38)
[2025-06-06] MEDS: DAKIN'S SOLUTION 0.125% 1/4 STRENGTH 10 ML TOPICAL (12:39)
--- NOTE | 2025-06-06 13:37 | CM ---
Left message with Amber at [facility]
awaiting if [facility] will accept - [facility] was reviewing
referrals sent in [facility]
PLAN: SNF, pending acceptance bed availability
[2025-06-06] MEDS: CUBICIN 130 MG IV (14:16)
[2025-06-06 15:00] VITALS: BP 121/71
[2025-06-06] MEDS: LOVENOX 40 MG SC (17:50)
[2025-06-06 23:31] VITALS: BP 125/70
[2025-06-07] MEDS: TYLENOL ORAL SOLUTION 650 MG PO (00:39)
[2025-06-07] MEDS: TEFLARO 270 MG IV ×4 (00:40→23:54)
[2025-06-07] MEDS: ROXICODONE 10 MG PO ×5 (02:16→21:23)
[2025-06-07 05:54] VITALS: BMI 31.4
[2025-06-07 06:23] LABS: Hematocrit 27.9 % (39.0-52.0); Hemoglobin 9.1 g/dL (13.0-18.0); Mean Corp Hgb Conc. 32.6 g/dL (33.0-37.0); Mean Corpuscular Volume 86.1 fL (80.0-94.0); Platelet Count 400 10^3/uL (130-400); Red Cell Dist. Width 15.4 % (11.5-14.5)
[2025-06-07 06:46] LABS: ALT (SGPT) 11 U/L (0-50); AST (SGOT) 13 U/L (17-59); Albumin 3.2 g/dl (3.5-5.0); Alkaline Phosphatase 102 U/L (38-126); Blood Urea Nitrogen 14 mg/dl (9-20); Calcium 9.2 mg/dl (8.4-10.2); Carbon Dioxide 30 mmol/L (22-30); Chloride 102 mmol/L (98-107); Estimated Creatinine Clearance > 125 ml/min; Glucose 101 mg/dl (70-99); Potassium 4.2 mmol/L (3.5-5.1); Sodium 137 mmol/L (135-145); Total Protein 7.3 g/dl (6.3-8.2); eGFR > 60.00
[2025-06-07 07:00] VITALS: BP 125/72
[2025-06-07] MEDS: PROTONIX 40 MG PO (08:46)
[2025-06-07] MEDS: COZAAR 100 MG PO (08:46)
[2025-06-07] MEDS: COREG 25 MG PO ×2 (08:46→21:23)
[2025-06-07] MEDS: ALDACTONE 50 MG PO (08:47)
[2025-06-07] MEDS: CATAPRES 0.2 MG PO ×2 (08:47→21:22)
[2025-06-07] MEDS: MIRALAX PO (08:48)
[2025-06-07] MEDS: MYCOSTATIN ORAL SUSPENSION PO ×3 (08:48→17:21)
[2025-06-07] MEDS: COLACE PO ×3 (08:48→21:30)
[2025-06-07] MEDS: SENOKOT PO ×3 (08:49→21:30)
--- NOTE | 2025-06-07 10:49 | W.PN.UPDATE ---
Update Note
Progress Note Update
Patient seen this morning. [place] removed from right knee uneventfully. Would recommend keeping the incision covered while in the hospital.
Patient can continue with weightbearing as tolerated to right lower extremity. Medical management per primary team. No need for further orthopedic follow-up. Please contact with any questions or concerns.
[2025-06-07] MEDS: CUBICIN 130 MG IV (13:11)
--- NOTE | 2025-06-07 13:16 | W.PN.HOSP.TC ---
Today's Communication/Plan
-
Ongoing dispo efforts
Assessment / Plan
Assessment / Plan
A/P:
Mr. Patrice Mera is a 50 yo man with hx polysubstance abuse, prior CVA (thalamic bleed; right hemiplegia), essential HTN, admitted 04/30 with septic shock 2/2 MRSA bacteremia, SINDY with anion gap metabolic acidosis and hypoxemic respiratory failure.
He is found to have septic joint right knee and development of necrotizing fasciitis.
#Acute respiratory failure, VDRF
-remains On 1 lt oxygen currently. Denies SOB
-CT scan of the chest 05/27 shows stability
prior to today:
-patient was intubated on admission for multiple reasons in setting of septic shock, pneumonia, septic emboli
-CTA without PE
-s/p self extubation on 05/05
-CT Chest -noted with bilateral cavitary nodules -repeat chest CT next week to follow on it
-Methylprednisolone 40 mg IV daily started on 05/11/25 per pulmonary-getting switched to oral prednisone for 5 days-last day 05/20.
#MRSA Bacteremia
Surveillance blood cultures are negative
Continue antibiotics per ID-on ceftaroline and daptomycin
CMP and CPK are ok
prior to today:
Septic Shock - patient was on Levo, Vaso, Epi, Giapreza; remains off pressors
Septic Arthritis Right Knee
Necrotizing Fasciitis right medial thigh and calf
- JEAN 05/06 without e/o vegetation
- Right knee joint aspirate positive for MRSA 05/06
- Exam 05/07 with new concern for necrotizing fasciitis right medial thigh and calf Daily wound care and packing-of the 2 wounds
- Appreciate general surgery and ortho, patient is s/p I&D of necrotizing soft tissue infection and washout right knee on 05/07/25
- 05/07 antibiotics changed to IV Daptomycin Teflaro started on 05/11/2025
- Last positive Blood cultures from 05/09, negative since 05/11/25.
-Blood pressure stable. White count improving -follow for now
#Right second toe infection Gangrene
- stable
prior to today:
-Appreciate ID and Podiatry
-Antibiotics as above
-Arterial US with multiphasic waveforms
-Wound care Betadine soaked gauze to toe - change every day
-S/P Right 2nd toe amputation secondary to gangrenous changes with exposed bone 05/09/25
# Acute kidney injury - ATN in setting of septic shock
Cr stable
prior to today:
Metabolic Acidosis Resolved
-Patient briefly required CRRT but could not tolerate long
-Ultrasound of the kidneys without obstruction
-Appreciate Renal
-SINDY now resolved
-Cheng discontinued on 05/06
- Creatinine stable
# Anemia secondary to acute illness. H&H stable
# Thrombocytosis secondary to infection-resolved
# Anasarca
# Hypoalbuminemia
# Drug abuse urine drug screen positive for Fentanyl, Benzos, Amphetamines and Methamphetamines
Decreased oxycodone from 20 to 10 and from 10 to 5 and space out Ativan from q 4 hr to bid as needed and tolerating well
prior to today:
Patient was discharged to a rehab last admission however he stayed there only for 2 days and signed himself out
# Multidrug resistant hypertension-currently blood pressure stable without medicines.
Stable
prior to today:
Patient was on Coreg, losartan, clonidine, Aldactone as outpatient.
- Patient back on clonidine, spironolactone, losartan, Coreg.
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 Transferred to [place] . Pt says he was there for 3 months and has weakness of right side and facial droop.
stable
prior to today:
s/p STAIN REMOVER shunt at [place]
*confirmed cannot get MRI here given shunt
#Vitamin D deficiency-continue replacement
#Chronic back pain
#Morbid obesity with a BMI of 35- Weight loss recommended
#History of nephrolithiasis
#Possible sleep apnea-needs outpatient study as OP.
#ADHD
#Hepatic steatosis per prior imaging-outpatient follow-up
#Active smoker-cessation counseling when able
#DVT prophylaxis-Lovenox
#Full code
CW IV abx regimen per ID
Remains medically stable for DC
Anticipated Discharge: Today
Subjective/Interval History
-
Date of Service: June 07, 2025
No overnight events.
Objective Data
-
Labs:
Laboratory Results
06/07/25
06:14
WBC 5.2
Hgb 9.1 L
Hct 27.9 L
Plt Count 400
Sodium 137
Potassium 4.2
Chloride 102
Carbon Dioxide 30
BUN 14
Creatinine 0.6 L
Glucose 101 H
Calcium 9.2
Total Bilirubin 0.5
AST 13 L
ALT 11
Alkaline Phosphatase 102
Vital Signs:
Vital Signs
Temp Pulse Resp BP Pulse Ox
97.7 F 66 18 125/72 97
06/07/25 07:00 06/07/25 07:00 06/07/25 07:00 06/07/25 07:00 06/07/25 08:30
I&O
06/06/25 06/07/25 06/08/25
06:59 06:59 06:59
Intake Total 1780 / 1780 1650 / 1650
Output Total 3100 / 3100 1050 / 1050
Balance -1320 / -1320 600 / 600
Physical Exam
-
General: Comfortable
Respiratory: Non Labored Respirations; Negative Accessory Resp Muscle Use
Cardiac: Regular Rhythm and S1/S2
Neuro: AO x 3
Psych: Calm
Data Reviewed
-
Labs: Labs Reviewed by me
[2025-06-07 15:00] VITALS: BP 125/74
[2025-06-07] MEDS: HYDROPHOR 1 APPLIC TOPICAL (16:54)
[2025-06-07] MEDS: DESENEX/MITRAZOL/ZEASORB 1 APPLIC TOPICAL (16:55)
[2025-06-07] MEDS: DAKIN'S SOLUTION 0.125% 1/4 STRENGTH 20 ML TOPICAL (16:55)
[2025-06-07] MEDS: LOVENOX 40 MG SC (17:00)
[2025-06-07] MEDS: MYCOSTATIN ORAL SUSPENSION 5 ML PO (21:23)
[2025-06-07] MEDS: DESENEX/MITRAZOL/ZEASORB TOPICAL (21:24)
[2025-06-07 23:00] VITALS: BP 121/74
[2025-06-08] MEDS: ROXICODONE 10 MG PO ×5 (01:25→19:57)
[2025-06-08 06:00] VITALS: BMI 31.7
[2025-06-08 07:00] VITALS: BP 121/76
[2025-06-08] MEDS: SENOKOT PO ×2 (07:45→19:53)
[2025-06-08] MEDS: COLACE PO ×2 (07:45→19:53)
[2025-06-08] MEDS: MIRALAX PO (07:45)
[2025-06-08] MEDS: PROTONIX 40 MG PO (08:22)
[2025-06-08] MEDS: MYCOSTATIN ORAL SUSPENSION 5 ML PO ×2 (08:22→18:15)
[2025-06-08] MEDS: ALDACTONE 50 MG PO (08:22)
[2025-06-08] MEDS: TEFLARO 270 MG IV ×3 (08:23→23:00)
[2025-06-08] MEDS: COZAAR 100 MG PO (08:23)
[2025-06-08] MEDS: COREG 25 MG PO ×2 (08:23→19:56)
[2025-06-08] MEDS: CATAPRES 0.2 MG PO ×2 (08:23→19:59)
--- NOTE | 2025-06-08 10:30 | W.PN.HOSP.TC ---
Today's Communication/Plan
-
Continue current IV antibiotics
Ongoing disposition efforts
Assessment / Plan
Assessment / Plan
A/P:
Mr. Patrice Mera is a 50 yo man with hx polysubstance abuse, prior CVA (thalamic bleed; right hemiplegia), essential HTN, admitted 04/30 with septic shock 2/2 MRSA bacteremia, SINDY with anion gap metabolic acidosis and hypoxemic respiratory failure.
He is found to have septic joint right knee and development of necrotizing fasciitis.
#Acute respiratory failure, VDRF
-remains On 1 lt oxygen currently. Denies SOB
-CT scan of the chest 05/27 shows stability
prior to today:
-patient was intubated on admission for multiple reasons in setting of septic shock, pneumonia, septic emboli
-CTA without PE
-s/p self extubation on 05/05
-CT Chest -noted with bilateral cavitary nodules -repeat chest CT next week to follow on it
-Methylprednisolone 40 mg IV daily started on 05/11/25 per pulmonary-getting switched to oral prednisone for 5 days-last day 05/20.
#MRSA Bacteremia
Surveillance blood cultures are negative
Continue antibiotics per ID-on ceftaroline and daptomycin
CMP and CPK are ok
prior to today:
Septic Shock - patient was on Levo, Vaso, Epi, Giapreza; remains off pressors
Septic Arthritis Right Knee
Necrotizing Fasciitis right medial thigh and calf
- JEAN 05/06 without e/o vegetation
- Right knee joint aspirate positive for MRSA 05/06
- Exam 05/07 with new concern for necrotizing fasciitis right medial thigh and calf Daily wound care and packing-of the 2 wounds
- Appreciate general surgery and ortho, patient is s/p I&D of necrotizing soft tissue infection and washout right knee on 05/07/25
- 05/07 antibiotics changed to IV Daptomycin Teflaro started on 05/11/2025
- Last positive Blood cultures from 05/09, negative since 05/11/25.
-Blood pressure stable. White count improving -follow for now
#Right second toe infection Gangrene
- stable
prior to today:
-Appreciate ID and Podiatry
-Antibiotics as above
-Arterial US with multiphasic waveforms
-Wound care Betadine soaked gauze to toe - change every day
-S/P Right 2nd toe amputation secondary to gangrenous changes with exposed bone 05/09/25
# Acute kidney injury - ATN in setting of septic shock
Cr stable
prior to today:
Metabolic Acidosis Resolved
-Patient briefly required CRRT but could not tolerate long
-Ultrasound of the kidneys without obstruction
-Appreciate Renal
-SINDY now resolved
-Cheng discontinued on 05/06
- Creatinine stable
# Anemia secondary to acute illness. H&H stable
# Thrombocytosis secondary to infection-resolved
# Anasarca
# Hypoalbuminemia
# Drug abuse urine drug screen positive for Fentanyl, Benzos, Amphetamines and Methamphetamines
Decreased oxycodone from 20 to 10 and from 10 to 5 and space out Ativan from q 4 hr to bid as needed and tolerating well
prior to today:
Patient was discharged to a rehab last admission however he stayed there only for 2 days and signed himself out
# Multidrug resistant hypertension-currently blood pressure stable without medicines.
Stable
prior to today:
Patient was on Coreg, losartan, clonidine, Aldactone as outpatient.
- Patient back on clonidine, spironolactone, losartan, Coreg.
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 Transferred to [place] . Pt says he was there for 3 months and has weakness of right side and facial droop.
stable
prior to today:
s/p HEMODIALYSIS PATIENT CARE SPECIALIST shunt at [place]
*confirmed cannot get MRI here given shunt
#Vitamin D deficiency-continue replacement
#Chronic back pain
#Morbid obesity with a BMI of 35- Weight loss recommended
#History of nephrolithiasis
#Possible sleep apnea-needs outpatient study as OP.
#ADHD
#Hepatic steatosis per prior imaging-outpatient follow-up
#Active smoker-cessation counseling when able
#DVT prophylaxis-Lovenox
#Full code
CW IV abx regimen per ID
Remains medically stable for DC
Anticipated Discharge: Within 24 hours
Subjective/Interval History
-
Date of Service: June 08, 2025
No overnight events.
[place] of the right knee came off yesterday
Denies any fever chills.
Denies any shortness of breath. No nausea vomiting.
Objective Data
-
Vital Signs:
Vital Signs
Temp Pulse Resp BP Pulse Ox
97.8 F 69 18 121/76 100
06/08/25 07:00 06/08/25 08:22 06/08/25 07:00 06/08/25 08:22 06/08/25 07:00
I&O
06/07/25 06/08/25 06/09/25
06:59 06:59 06:59
Intake Total 1650 / 1650 650 / 650
Output Total 1050 / 1050 2425 / 2425
Balance 600 / 600 -1775 / -1775
Physical Exam
-
General: Comfortable
Respiratory: Non Labored Respirations; Negative Accessory Resp Muscle Use
Cardiac: Regular Rhythm and S1/S2; Negative Tachycardic
Neuro: AO x 3
[2025-06-08 13:40] VITALS: BP 128/73
[2025-06-08] MEDS: MYCOSTATIN ORAL SUSPENSION PO ×2 (14:22→21:02)
[2025-06-08] MEDS: CUBICIN 130 MG IV (14:22)
[2025-06-08] MEDS: DAKIN'S SOLUTION 0.125% 1/4 STRENGTH TOPICAL (14:49)
[2025-06-08 15:00] VITALS: BP 136/76
[2025-06-08] MEDS: DESENEX/MITRAZOL/ZEASORB 1 APPLIC TOPICAL ×2 (15:38→19:57)
[2025-06-08] MEDS: HYDROPHOR 1 APPLIC TOPICAL (15:39)
[2025-06-08] MEDS: DRISDOL (VITAMIN D2) 50000 UNITS PO (15:39)
[2025-06-08] MEDS: LOVENOX 40 MG SC (18:15)
[2025-06-08 23:00] VITALS: BP 128/72
[2025-06-09 04:41] VITALS: BMI 31.3
[2025-06-09 07:00] VITALS: BP 138/74
[2025-06-09] MEDS: MYCOSTATIN ORAL SUSPENSION 5 ML PO ×2 (07:38→13:02)
[2025-06-09] MEDS: COREG 25 MG PO ×2 (07:39→20:37)
[2025-06-09] MEDS: PROTONIX 40 MG PO (07:39)
[2025-06-09] MEDS: ALDACTONE 50 MG PO (07:40)
[2025-06-09] MEDS: CATAPRES 0.2 MG PO ×2 (07:40→20:37)
[2025-06-09] MEDS: COZAAR 100 MG PO (07:40)
[2025-06-09] MEDS: COLACE PO ×2 (07:41→20:38)
[2025-06-09] MEDS: SENOKOT PO ×2 (07:41→20:38)
[2025-06-09] MEDS: MIRALAX PO (07:41)
[2025-06-09] MEDS: ROXICODONE 10 MG PO ×5 (07:46→20:38)
[2025-06-09] MEDS: TEFLARO 270 MG IV ×2 (08:00→16:00)
--- NOTE | 2025-06-09 08:57 | W.PN.HOSP.TC ---
Today's Communication/Plan
-
Discharge planning
Assessment / Plan
Assessment / Plan
Physical exam:
General: Chronically ill
HEENT: Normocephalic, Atraumatic and Moist Mucous Membranes
Respiratory: Clear to Auscultation; Negative Wheezes, Rales or Rhonchi
Cardiac: Regular Rhythm and S1/S2
GI: Soft, Nontender and Nondistended
Musculoskeletal: No Clubbing, No Cyanosis and No Edema
Neuro: Awake, Alert and Oriented
Psych: Calm
A/P:
Mr. Patrice Mera is a 50 yo man with hx polysubstance abuse, prior CVA (thalamic bleed; right hemiplegia), essential HTN, admitted 04/30 with septic shock 2/2 MRSA bacteremia, SINDY with anion gap metabolic acidosis and hypoxemic respiratory failure.
He is found to have septic joint right knee and development of necrotizing fasciitis.
#Acute respiratory failure, VDRF
-remains On 1 lt oxygen currently. Denies SOB
-CT scan of the chest 05/27 shows stability
prior to today:
-patient was intubated on admission for multiple reasons in setting of septic shock, pneumonia, septic emboli
-CTA without PE
-s/p self extubation on 05/05
-CT Chest -noted with bilateral cavitary nodules -repeat chest CT next week to follow on it
-Methylprednisolone 40 mg IV daily started on 05/11/25 per pulmonary-getting switched to oral prednisone for 5 days-last day 05/20.
#MRSA Bacteremia
Surveillance blood cultures are negative
Continue antibiotics per ID-on ceftaroline and daptomycin
CMP and CPK are ok
prior to today:
Septic Shock - patient was on Levo, Vaso, Epi, Giapreza; remains off pressors
Septic Arthritis Right Knee
Necrotizing Fasciitis right medial thigh and calf
- JEAN 05/06 without e/o vegetation
- Right knee joint aspirate positive for MRSA 05/06
- Exam 05/07 with new concern for necrotizing fasciitis right medial thigh and calf Daily wound care and packing-of the 2 wounds
- Appreciate general surgery and ortho, patient is s/p I&D of necrotizing soft tissue infection and washout right knee on 05/07/25
- 05/07 antibiotics changed to IV Daptomycin Teflaro started on 05/11/2025
- Last positive Blood cultures from 05/09, negative since 05/11/25.
-Blood pressure stable. White count improving -follow for now
#Right second toe infection Gangrene
- stable
prior to today:
-Appreciate ID and Podiatry
-Antibiotics as above
-Arterial US with multiphasic waveforms
-Wound care Betadine soaked gauze to toe - change every day
-S/P Right 2nd toe amputation secondary to gangrenous changes with exposed bone 05/09/25
# Acute kidney injury - ATN in setting of septic shock
Cr stable
prior to today:
Metabolic Acidosis Resolved
-Patient briefly required CRRT but could not tolerate long
-Ultrasound of the kidneys without obstruction
-Appreciate Renal
-SINDY now resolved
-Cheng discontinued on 05/06
- Creatinine stable
# Anemia secondary to acute illness. H&H stable
# Thrombocytosis secondary to infection-resolved
# Anasarca
# Hypoalbuminemia
# Drug abuse urine drug screen positive for Fentanyl, Benzos, Amphetamines and Methamphetamines
Decreased oxycodone from 20 to 10 and from 10 to 5 and space out Ativan from q 4 hr to bid as needed and tolerating well
prior to today:
Patient was discharged to a rehab last admission however he stayed there only for 2 days and signed himself out
# Multidrug resistant hypertension-currently blood pressure stable without medicines.
Stable
prior to today:
Patient was on Coreg, losartan, clonidine, Aldactone as outpatient.
- Patient back on clonidine, spironolactone, losartan, Coreg.
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 Transferred to [place] . Pt says he was there for 3 months and has weakness of right side and facial droop.
stable
prior to today:
s/p IN FLIGHT CREW MEMBER shunt at [place]
*confirmed cannot get MRI here given shunt
#Vitamin D deficiency-continue replacement
#Chronic back pain
#Morbid obesity with a BMI of 35- Weight loss recommended
#History of nephrolithiasis
#Possible sleep apnea-needs outpatient study as OP.
#ADHD
#Hepatic steatosis per prior imaging-outpatient follow-up
#Active smoker-cessation counseling when able
#DVT prophylaxis-Lovenox
#Full code
CW IV abx regimen per ID
Remains medically stable for DC
Anticipated Discharge: 24 - 48 hours
Subjective/Interval History
-
Date of Service: June 09, 2025
No new complaints
Objective Data
-
Vital Signs:
Vital Signs
Temp Pulse Resp BP Pulse Ox
98.0 F 94 18 138/74 94
06/09/25 07:00 06/09/25 07:39 06/09/25 07:00 06/09/25 07:39 06/09/25 07:00
I&O
06/08/25 06/09/25 06/10/25
06:59 06:59 06:59
Intake Total 650 / 650 660 / 660
Output Total 2425 / 2425 1900 / 1900 150 / 150
Balance -1775 / -1775 -1240 / -1240 -150 / -150
--- NOTE | 2025-06-09 10:10 | W.PN.ID1 ---
Date of Service
Date of Service: June 09, 2025
Today's Communication
Continue current antibiotics.
Assessment / Plan
Sustained (04/30 - 05/09) complicated MRSA bacteremia
- Blood cultures clear as of 05/11/2025
Pulmonary septic emboli
Cavitary MRSA PNA
Septic arthritis - right knee; s/p washout
Right thigh & calf necrotizing soft tissue infection
Right second toe infection/gangrene/osteomyelitis; s/p amputation
Fever - resolved
Leukocytosis - stable
s/p Hypoxemic respiratory failure, self extubated 05/05
SINDY; resolved
Substance abuse (UDS with fentanyl, amphetamine, methamphetamine, benzodiazepine)
Hx CVA (thalamic bleed) with right hemiplegia
Chronic back pain
Recommendations:
05/01/20 ECHO (TTE) without valvular disease. 05/06/25 ECHO (JEAN): no valvular vegetation noted.
Sputum cx: MRSA
Blood cx's negative 05/11 forward
05/06 R knee fluid: 41,220 WBC, 54% polys, neg crystals.
Synovial cx : MRSA
05/07/25 - s/p washout of R knee (+PUS). Cx MRSA
05/07/25 - s/p I+D right thigh and calf. Cx MRSA
05/09/25 s/p R 2nd toe amputation
Continue Daptomycin IV (d#31).
- Monitor CK while on Dapto. Currently stable.
Continue ceftaroline (d#27)
Continue abx through 06/22/2025
Follow WBC count, platelets, CPK, temperature, O2 requirements.
White count stable. Continuing to follow.
Disposition efforts ongoing.
����������������������������������������������������������
Chief Complaint
-: Clinical Sepsis, Pneumonia and Bacteremia
Subjective / Review of Systems
Review of Systems: No Fever, No Chills, No Cough, No Sputum Production and No Chest Pain
Vital Signs / Physical Exam
Vital Signs
Vital Signs
Temp Pulse Resp BP Pulse Ox
98.0 F 94 18 138/74 94
06/09/25 07:00 06/09/25 07:39 06/09/25 07:00 06/09/25 07:39 06/09/25 07:00
Physical Exam
Constitutional: No Acute Distress, Comfortable, Chronically Ill and Non-toxic
Cardiovascular: S1/S2; Negative S3/S4
Pulmonary: Non Labored; Negative Wheezes or Rales
Gastrointestinal: Non Distended
Extremities: Edema, Venous Insufficiency (Bilateral lower extremities) and Other (LE stasis dermatitis)
Wound: Other (Knee wound; dressing intact. Right thigh wounds with intact dressing. Right foot dressing intact. No periwound erythema.)
Neurological: Awake and Alert
Psychological: Calm
Objective Data
Lab Data
Lab Results
06/07/25 06:14
06/07/25 06:14
PT 20.0 Sec (11.4-14.6) H 04/30/25 19:46
INR 1.65 04/30/25 19:46
APTT Cancelled 05/04/25 14:45
Estimated Creat Clear > 125 ml/min 06/07/25 06:14
Lactic Acid 1.9 mmol/L (0.7-2.0) 05/01/25 12:18
Total Bilirubin 0.5 mg/dl (0.2-1.3) 06/07/25 06:14
AST 13 U/L (17-59) L 06/07/25 06:14
ALT 11 U/L (0-50) 06/07/25 06:14
Alkaline Phosphatase 102 U/L (38-126) 06/07/25 06:14
Most recent labs reviewed.
Micro Results:
05/16/25 04:52 Blood Culture - Final
Blood/Venous No Growth - Final Report
05/15/25 05:39 Blood Culture - Final
Blood/Venous No Growth - Final Report
05/14/25 03:20 Blood Culture - Final
Blood/Venous No Growth - Final Report
05/13/25 09:45 Blood Culture - Final
Blood/Venous No Growth - Final Report
05/12/25 05:34 Blood Culture - Final
Blood/Venous No Growth - Final Report
05/11/25 12:40 Blood Culture - Final
Blood/Venous No Growth - Final Report
05/09/25 04:01 Blood Culture - Final
Blood/Venous Staph aureus MRSA
Gram Stain - Final
05/08/25 04:21 Blood Culture - Final
Blood/Venous Staph aureus MRSA
Gram Stain - Final
05/07/25 04:55 Blood Culture - Final
Blood/Venous Staph aureus MRSA
Gram Stain - Final
05/06/25 08:16 Blood Culture - Final
Blood/Venous Staph aureus MRSA
Gram Stain - Final
05/07/25 18:35 Wound Culture - Final
Knee - Right Staph aureus MRSA
Gram Stain - Final
05/07/25 18:35 Anaerobic Culture - Final
Knee - Right NO ANAEROBES ISOLATED
05/07/25 18:35 Wound Culture - Final
Leg - Right Staph aureus MRSA
Gram Stain - Final
05/07/25 18:35 Anaerobic Culture - Final
Leg - Right NO ANAEROBES ISOLATED
05/05/25 03:34 Blood Culture - Final
Blood/Venous No Growth - Final Report
05/03/25 04:25 Blood Culture - Final
Blood/Venous Staph aureus MRSA
Gram Stain - Final
05/02/25 03:16 Blood Culture - Final
Blood/Venous Staph aureus MRSA
Gram Stain - Final
05/04/25 03:13 Blood Culture - Final
Blood/Venous No Growth - Final Report
05/06/25 13:19 Body Fluid Culture - Final
Synovial Fluid Staph aureus MRSA
Gram Stain - Final
04/30/25 19:46 Blood Culture - Final
Blood/Venous Staph aureus MRSA
Gram Stain - Final
05/04/25 09:25 Respiratory Culture - Final
Endotracheal Staph aureus MRSA
Gram Stain - Final
05/01/25 17:45 Blood Culture - Final
Blood/Venous Staph aureus MRSA
Gram Stain - Final
04/30/25 19:46 Blood Culture - Final
Blood/Venous Staph aureus MRSA
Gram Stain - Final
05/01/25 01:32 Urine Culture - Final
Urine Yeast
05/01/25 01:17 Blood Parasites Smear - Final
Blood/Venous
04/30/25 23:02 Influenza Types A & B (GIORGIO) - Final
Nasal Swab Negative for Influenza A & B, NAAT
Negative results must be combined with clinical observations
and patient history.
Nucleic Acid Amplification test (NAAT)performed on the
[employer] platform.
Imaging:
05/27/2025 CT chest without contrast: overall decreased bilateral consolidation. Decreased or unchanged size of bilateral nodules and cavitary lesions, with decreased wall thickening of the cavitary lesions. Small bilateral pleural effusions noted,
decreased on the right and unchanged on the left. No abnormally enlarged mediastinal lymph nodes identified. No pericardial effusion. Please see full dictation for additional detail.
05/16/2025 CXR (portable): extensive heterogeneous opacities bilaterally. A 6.2 cm cavitary right lower lobe lesion again noted. No pneumothorax or pleural effusion. Mild cardiac enlargement.
05/12/2025 CXR (portable): improved aeration of the right upper lung compared to prior days imaging. Otherwise, extensive diffuse bilateral patchy, nodular and confluent airspace opacities.
05/02/25 CT RLE: Subcutaneous stranding within the soft tissues of the anterior right thigh, and [id number] anterior soft tissues. No drainable abscess is appreciated. Moderate suprapatellar joint effusion, with areas of loculation.
05/01/2025 ECHO (TTE): EF 55%. Normal biventricular size and systolic function. No significant valvular disease. No obvious vegetations.
05/01/2025 CXR (portable): bilateral interstitial and airspace disease noted which may reflect pulmonary edema or pneumonia. Small bilateral pleural effusions noted. Please see full dictation for additional detail.
05/01/2025 Abdominal x-ray. Enteric tube noted in stomach.
05/01/2025 Renal ultrasound: unremarkable renal ultrasound without hydronephrosis, contour deforming solid renal mass or echogenic shadowing foci to suggest renal calculi. Bilateral pleural effusions noted.
05/01/2025 Duplex ultrasound lower extremity: no evidence of DVT in the bilateral lower extremities
04/30/2025 X-ray right foot: soft tissue injury versus ulceration involving the second digit with soft tissue swelling. The cortex of the distal phalanx is indistinct and the possibility of osteomyelitis cannot be excluded. There is soft tissue
swelling of the first digit. No radiographic evidence to suggest osteomyelitis. Please see full dictation for additional detail.
[2025-06-09 10:50] VITALS: BP 124/70; PULSE 74; O2SAT 93
[2025-06-09] MEDS: DAKIN'S SOLUTION 0.125% 1/4 STRENGTH 10 ML TOPICAL (12:00)
[2025-06-09] MEDS: DESENEX/MITRAZOL/ZEASORB 1 APPLIC TOPICAL ×2 (12:02→20:38)
[2025-06-09] MEDS: HYDROPHOR 1 APPLIC TOPICAL (12:02)
[2025-06-09] MEDS: CUBICIN 130 MG IV (13:36)
[2025-06-09 15:00] VITALS: BP 146/77
[2025-06-09] MEDS: MYCOSTATIN ORAL SUSPENSION PO ×2 (18:12→21:05)
[2025-06-09] MEDS: LOVENOX 40 MG SC (18:12)
[2025-06-09 23:57] VITALS: BP 129/74
[2025-06-10] MEDS: TEFLARO 270 MG IV ×3 (00:14→17:18)
[2025-06-10] MEDS: ROXICODONE 10 MG PO ×5 (01:37→21:30)
[2025-06-10 06:12] VITALS: BMI 31.7
[2025-06-10 07:00] VITALS: BP 133/78
[2025-06-10 08:36] LABS: Hematocrit 28.4 % (39.0-52.0); Hemoglobin 9.0 g/dL (13.0-18.0); Mean Corp Hgb Conc. 31.7 g/dL (33.0-37.0); Mean Corpuscular Volume 85.3 fL (80.0-94.0); Nucleated Red Blood Cells % 0 % (-); Platelet Count 466 10^3/uL (130-400); Red Cell Dist. Width 15.3 % (11.5-14.5)
[2025-06-10] MEDS: PROTONIX 40 MG PO (08:39)
[2025-06-10] MEDS: COZAAR 100 MG PO (08:39)
[2025-06-10] MEDS: MYCOSTATIN ORAL SUSPENSION 5 ML PO ×4 (08:39→21:22)
[2025-06-10] MEDS: CATAPRES 0.2 MG PO ×2 (08:40→21:23)
[2025-06-10] MEDS: ALDACTONE 50 MG PO (08:40)
[2025-06-10] MEDS: COREG 25 MG PO ×2 (08:40→21:24)
[2025-06-10] MEDS: COLACE PO ×2 (09:59→21:24)
[2025-06-10] MEDS: MIRALAX PO (09:59)
[2025-06-10] MEDS: SENOKOT PO ×2 (10:00→21:24)
[2025-06-10 10:53] LABS: Blood Urea Nitrogen 9 mg/dl (9-20); Calcium 8.9 mg/dl (8.4-10.2); Carbon Dioxide 29 mmol/L (22-30); Chloride 103 mmol/L (98-107); Estimated Creatinine Clearance > 125 ml/min; Glucose 105 mg/dl (70-99); Potassium 3.9 mmol/L (3.5-5.1); Sodium 138 mmol/L (135-145); eGFR > 60.00
--- NOTE | 2025-06-10 11:00 | WOUNDNOTE ---
TEDDY RN NOTE: Unable to follow up with patient and change dressing, patient refused. Nurse Bergman made aware and will coordinate dressing change for later this afternoon and premedicate beforehand for pain.
--- NOTE | 2025-06-10 11:41 | W.PN.HOSP.TC ---
Today's Communication/Plan
-
d/c planning
Assessment / Plan
Assessment / Plan
Physical exam:
General: Chronically ill
HEENT: Normocephalic, Atraumatic and Moist Mucous Membranes
Respiratory: Clear to Auscultation; Negative Wheezes, Rales or Rhonchi
Cardiac: Regular Rhythm and S1/S2
GI: Soft, Nontender and Nondistended
Musculoskeletal: No Clubbing, No Cyanosis and No Edema
Neuro: Awake, Alert and Oriented
Psych: Calm
A/P:
Mr. Patrice Mera is a 50 yo man with hx polysubstance abuse, prior CVA (thalamic bleed; right hemiplegia), essential HTN, admitted 04/30 with septic shock 2/2 MRSA bacteremia, SINDY with anion gap metabolic acidosis and hypoxemic respiratory failure.
He is found to have septic joint right knee and development of necrotizing fasciitis.
#Acute respiratory failure, VDRF
-remains On 1 lt oxygen currently. Denies SOB
-CT scan of the chest 05/27 shows stability
- Labs repeated today unremarkable; normal CPK
prior to today:
-patient was intubated on admission for multiple reasons in setting of septic shock, pneumonia, septic emboli
-CTA without PE
-s/p self extubation on 05/05
-CT Chest -noted with bilateral cavitary nodules -repeat chest CT next week to follow on it
-Methylprednisolone 40 mg IV daily started on 05/11/25 per pulmonary-getting switched to oral prednisone for 5 days-last day 05/20.
#MRSA Bacteremia
Surveillance blood cultures are negative
Continue antibiotics per ID-on ceftaroline and daptomycin
CMP and CPK are ok
prior to today:
Septic Shock - patient was on Levo, Vaso, Epi, Giapreza; remains off pressors
Septic Arthritis Right Knee
Necrotizing Fasciitis right medial thigh and calf
- JEAN 05/06 without e/o vegetation
- Right knee joint aspirate positive for MRSA 05/06
- Exam 05/07 with new concern for necrotizing fasciitis right medial thigh and calf Daily wound care and packing-of the 2 wounds
- Appreciate general surgery and ortho, patient is s/p I&D of necrotizing soft tissue infection and washout right knee on 05/07/25
- 05/07 antibiotics changed to IV Daptomycin Teflaro started on 05/11/2025
- Last positive Blood cultures from 05/09, negative since 05/11/25.
-Blood pressure stable. White count improving -follow for now
#Right second toe infection Gangrene
- stable
prior to today:
-Appreciate ID and Podiatry
-Antibiotics as above
-Arterial US with multiphasic waveforms
-Wound care Betadine soaked gauze to toe - change every day
-S/P Right 2nd toe amputation secondary to gangrenous changes with exposed bone 05/09/25
# Acute kidney injury - ATN in setting of septic shock
Cr stable
prior to today:
Metabolic Acidosis Resolved
-Patient briefly required CRRT but could not tolerate long
-Ultrasound of the kidneys without obstruction
-Appreciate Renal
-SINDY now resolved
-Cheng discontinued on 05/06
- Creatinine stable
# Anemia secondary to acute illness. H&H stable
# Thrombocytosis secondary to infection-resolved
# Anasarca
# Hypoalbuminemia
# Drug abuse urine drug screen positive for Fentanyl, Benzos, Amphetamines and Methamphetamines
Decreased oxycodone from 20 to 10 and from 10 to 5 and space out Ativan from q 4 hr to bid as needed and tolerating well
prior to today:
Patient was discharged to a rehab last admission however he stayed there only for 2 days and signed himself out
# Multidrug resistant hypertension-currently blood pressure stable without medicines.
Stable
prior to today:
Patient was on Coreg, losartan, clonidine, Aldactone as outpatient.
- Patient back on clonidine, spironolactone, losartan, Coreg.
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 Transferred to [place] . Pt says he was there for 3 months and has weakness of right side and facial droop.
stable
prior to today:
s/p GEAR STRAIGHTENER shunt at [place]
*confirmed cannot get MRI here given shunt
#Vitamin D deficiency-continue replacement
#Chronic back pain
#Morbid obesity with a BMI of 35- Weight loss recommended
#History of nephrolithiasis
#Possible sleep apnea-needs outpatient study as OP.
#ADHD
#Hepatic steatosis per prior imaging-outpatient follow-up
#Active smoker-cessation counseling when able
#DVT prophylaxis-Lovenox
#Full code
CW IV abx regimen per ID
Remains medically stable for DC
Anticipated Discharge: 24 - 48 hours
Subjective/Interval History
-
Date of Service: June 10, 2025
No new complaints. Afebrile
Objective Data
-
Labs:
Laboratory Results
06/10/25
08:00
WBC 6.2
Hgb 9.0 L
Hct 28.4 L
Plt Count 466 H
Sodium 138
Potassium 3.9
Chloride 103
Carbon Dioxide 29
BUN 9
Creatinine 0.6 L
Glucose 105 H
Calcium 8.9
Vital Signs:
Vital Signs
Temp Pulse Resp BP Pulse Ox
98.2 F 64 18 133/78 96
06/10/25 07:00 06/10/25 08:40 06/10/25 07:00 06/10/25 08:40 06/10/25 07:00
I&O
06/09/25 06/10/25 06/11/25
06:59 06:59 06:59
Intake Total 660 / 660 960 / 960
Output Total 1900 / 1900 1350 / 1350
Balance -1240 / -1240 -390 / -390
[2025-06-10] MEDS: DAKIN'S SOLUTION 0.125% 1/4 STRENGTH 20 ML TOPICAL (12:43)
[2025-06-10] MEDS: DESENEX/MITRAZOL/ZEASORB 1 APPLIC TOPICAL ×2 (12:43→21:24)
[2025-06-10] MEDS: HYDROPHOR 1 APPLIC TOPICAL (12:44)
[2025-06-10] MEDS: CUBICIN 130 MG IV (13:01)
--- NOTE | 2025-06-10 14:28 | WOUNDNOTE ---
R MEDIAL LEG NEAR KNEE
--- NOTE | 2025-06-10 14:28 | WOUNDNOTE ---
TEDDY RN NOTE: Followed up today with assist of nurse Madalyn, dressing changed on R leg. Wounds appear glass cleaner, R knee suture line healed. Patient insisted on keeping dry dressing over knee. Applied Dakin's moist gauze and covered with dry dressing to
wounds. Patient turned with assist, sacrum remains intact along with heels. Pillow placed under calves. Remains on air mattress, appetite is good. Will follow as needed.
[2025-06-10 15:00] VITALS: BP 133/74
--- NOTE | 2025-06-10 15:12 | W.PN.ID1 ---
Date of Service
Date of Service: June 10, 2025
Today's Communication
Continue Abx
Assessment / Plan
Sustained (04/30 - 05/09) complicated MRSA bacteremia
- Blood cultures clear as of 05/11/2025
Pulmonary septic emboli
Cavitary MRSA PNA
Septic arthritis - right knee; s/p washout
Right thigh & calf necrotizing soft tissue infection
Right second toe infection/gangrene/osteomyelitis; s/p amputation
Fever - resolved
Leukocytosis - stable
s/p Hypoxemic respiratory failure, self extubated 05/05
SINDY; resolved
Substance abuse (UDS with fentanyl, amphetamine, methamphetamine, benzodiazepine)
Hx CVA (thalamic bleed) with right hemiplegia
Chronic back pain
Recommendations:
05/01/20 ECHO (TTE) without valvular disease. 05/06/25 ECHO (JEAN): no valvular vegetation noted.
Sputum cx: MRSA
Blood cx's negative 05/11 forward
05/06 R knee fluid: 41,220 WBC, 54% polys, neg crystals.
Synovial cx : MRSA
05/07/25 - s/p washout of R knee (+PUS). Cx MRSA
05/07/25 - s/p I+D right thigh and calf. Cx MRSA
05/09/25 s/p R 2nd toe amputation
Continue Daptomycin IV (d#32).
- Monitor CK while on Dapto. Currently stable.
Continue ceftaroline (d#28)
Continue abx through 06/22/2025
Follow WBC count, platelets, CPK, temperature, O2 requirements.
White count stable. Continuing to follow.
Disposition efforts ongoing.
����������������������������������������������������������
Chief Complaint
-: Clinical Sepsis, Pneumonia and Bacteremia
Subjective / Review of Systems
Review of Systems: No Fever, No Chills, Cough, Sputum Production (Whitish) and No Chest Pain
Vital Signs / Physical Exam
Vital Signs
Vital Signs
Temp Pulse Resp BP Pulse Ox
98.2 F 64 18 133/78 96
06/10/25 07:00 06/10/25 08:40 06/10/25 07:00 06/10/25 08:40 06/10/25 07:00
Physical Exam
Constitutional: No Acute Distress, Comfortable, Chronically Ill and Non-toxic
Cardiovascular: S1/S2; Negative S3/S4
Pulmonary: Non Labored; Negative Wheezes or Rales
Gastrointestinal: Non Distended
Extremities: Edema, Venous Insufficiency (Bilateral lower extremities) and Other (LE stasis dermatitis)
Wound: Other (Knee wound; dressing intact. Right thigh wounds with intact dressing. Right foot dressing intact. No periwound erythema.)
Neurological: Awake and Alert
Psychological: Calm
Objective Data
Lab Data
Lab Results
06/10/25 08:00
06/10/25 08:00
PT 20.0 Sec (11.4-14.6) H 04/30/25 19:46
INR 1.65 04/30/25 19:46
APTT Cancelled 05/04/25 14:45
Estimated Creat Clear > 125 ml/min 06/10/25 08:00
Lactic Acid 1.9 mmol/L (0.7-2.0) 05/01/25 12:18
Total Bilirubin 0.5 mg/dl (0.2-1.3) 06/07/25 06:14
AST 13 U/L (17-59) L 06/07/25 06:14
ALT 11 U/L (0-50) 06/07/25 06:14
Alkaline Phosphatase 102 U/L (38-126) 06/07/25 06:14
Most recent labs reviewed.
Micro Results:
05/16/25 04:52 Blood Culture - Final
Blood/Venous No Growth - Final Report
05/15/25 05:39 Blood Culture - Final
Blood/Venous No Growth - Final Report
05/14/25 03:20 Blood Culture - Final
Blood/Venous No Growth - Final Report
05/13/25 09:45 Blood Culture - Final
Blood/Venous No Growth - Final Report
05/12/25 05:34 Blood Culture - Final
Blood/Venous No Growth - Final Report
05/11/25 12:40 Blood Culture - Final
Blood/Venous No Growth - Final Report
05/09/25 04:01 Blood Culture - Final
Blood/Venous Staph aureus MRSA
Gram Stain - Final
05/08/25 04:21 Blood Culture - Final
Blood/Venous Staph aureus MRSA
Gram Stain - Final
05/07/25 04:55 Blood Culture - Final
Blood/Venous Staph aureus MRSA
Gram Stain - Final
05/06/25 08:16 Blood Culture - Final
Blood/Venous Staph aureus MRSA
Gram Stain - Final
05/07/25 18:35 Wound Culture - Final
Knee - Right Staph aureus MRSA
Gram Stain - Final
05/07/25 18:35 Anaerobic Culture - Final
Knee - Right NO ANAEROBES ISOLATED
05/07/25 18:35 Wound Culture - Final
Leg - Right Staph aureus MRSA
Gram Stain - Final
05/07/25 18:35 Anaerobic Culture - Final
Leg - Right NO ANAEROBES ISOLATED
05/05/25 03:34 Blood Culture - Final
Blood/Venous No Growth - Final Report
05/03/25 04:25 Blood Culture - Final
Blood/Venous Staph aureus MRSA
Gram Stain - Final
05/02/25 03:16 Blood Culture - Final
Blood/Venous Staph aureus MRSA
Gram Stain - Final
05/04/25 03:13 Blood Culture - Final
Blood/Venous No Growth - Final Report
05/06/25 13:19 Body Fluid Culture - Final
Synovial Fluid Staph aureus MRSA
Gram Stain - Final
04/30/25 19:46 Blood Culture - Final
Blood/Venous Staph aureus MRSA
Gram Stain - Final
05/04/25 09:25 Respiratory Culture - Final
Endotracheal Staph aureus MRSA
Gram Stain - Final
05/01/25 17:45 Blood Culture - Final
Blood/Venous Staph aureus MRSA
Gram Stain - Final
04/30/25 19:46 Blood Culture - Final
Blood/Venous Staph aureus MRSA
Gram Stain - Final
05/01/25 01:32 Urine Culture - Final
Urine Yeast
05/01/25 01:17 Blood Parasites Smear - Final
Blood/Venous
04/30/25 23:02 Influenza Types A & B (GIORGIO) - Final
Nasal Swab Negative for Influenza A & B, NAAT
Negative results must be combined with clinical observations
and patient history.
Nucleic Acid Amplification test (NAAT)performed on the
[employer] platform.
Imaging:
05/27/2025 CT chest without contrast: overall decreased bilateral consolidation. Decreased or unchanged size of bilateral nodules and cavitary lesions, with decreased wall thickening of the cavitary lesions. Small bilateral pleural effusions noted,
decreased on the right and unchanged on the left. No abnormally enlarged mediastinal lymph nodes identified. No pericardial effusion. Please see full dictation for additional detail.
05/16/2025 CXR (portable): extensive heterogeneous opacities bilaterally. A 6.2 cm cavitary right lower lobe lesion again noted. No pneumothorax or pleural effusion. Mild cardiac enlargement.
05/12/2025 CXR (portable): improved aeration of the right upper lung compared to prior days imaging. Otherwise, extensive diffuse bilateral patchy, nodular and confluent airspace opacities.
05/02/25 CT RLE: Subcutaneous stranding within the soft tissues of the anterior right thigh, and [id number] anterior soft tissues. No drainable abscess is appreciated. Moderate suprapatellar joint effusion, with areas of loculation.
05/01/2025 ECHO (TTE): EF 55%. Normal biventricular size and systolic function. No significant valvular disease. No obvious vegetations.
05/01/2025 CXR (portable): bilateral interstitial and airspace disease noted which may reflect pulmonary edema or pneumonia. Small bilateral pleural effusions noted. Please see full dictation for additional detail.
05/01/2025 Abdominal x-ray. Enteric tube noted in stomach.
05/01/2025 Renal ultrasound: unremarkable renal ultrasound without hydronephrosis, contour deforming solid renal mass or echogenic shadowing foci to suggest renal calculi. Bilateral pleural effusions noted.
05/01/2025 Duplex ultrasound lower extremity: no evidence of DVT in the bilateral lower extremities
04/30/2025 X-ray right foot: soft tissue injury versus ulceration involving the second digit with soft tissue swelling. The cortex of the distal phalanx is indistinct and the possibility of osteomyelitis cannot be excluded. There is soft tissue
swelling of the first digit. No radiographic evidence to suggest osteomyelitis. Please see full dictation for additional detail.
[2025-06-10] MEDS: LOVENOX 40 MG SC (17:19)
[2025-06-10 23:00] VITALS: BP 122/73
[2025-06-11] MEDS: TEFLARO 270 MG IV ×3 (00:34→16:16)
[2025-06-11] MEDS: ROXICODONE 10 MG PO ×3 (02:34→14:16)
[2025-06-11 06:00] VITALS: BMI 31.9
[2025-06-11 07:00] VITALS: BP 136/80
[2025-06-11] MEDS: MYCOSTATIN ORAL SUSPENSION 5 ML PO ×4 (08:35→20:52)
[2025-06-11] MEDS: ALDACTONE 50 MG PO (08:35)
[2025-06-11] MEDS: CATAPRES 0.2 MG PO ×2 (08:40→20:52)
[2025-06-11] MEDS: COZAAR 100 MG PO (08:41)
[2025-06-11] MEDS: PROTONIX 40 MG PO (08:41)
[2025-06-11] MEDS: COREG 25 MG PO ×2 (08:41→20:51)
[2025-06-11] MEDS: DESENEX/MITRAZOL/ZEASORB 1 APPLIC TOPICAL ×2 (08:42→20:53)
[2025-06-11] MEDS: DAKIN'S SOLUTION 0.125% 1/4 STRENGTH 473 ML TOPICAL (08:42)
[2025-06-11] MEDS: MIRALAX PO (08:43)
[2025-06-11] MEDS: HYDROPHOR 1 APPLIC TOPICAL (08:43)
[2025-06-11] MEDS: COLACE PO ×2 (08:44→20:52)
[2025-06-11] MEDS: SENOKOT PO ×2 (08:44→20:52)
--- NOTE | 2025-06-11 09:04 | W.PN.HOSP.TC ---
Today's Communication/Plan
-
Discharge planning
Assessment / Plan
Assessment / Plan
Physical exam:
General: Chronically ill
HEENT: Normocephalic, Atraumatic and Moist Mucous Membranes
Respiratory: Clear to Auscultation; Negative Wheezes, Rales or Rhonchi
Cardiac: Regular Rhythm and S1/S2
GI: Soft, Nontender and Nondistended
Musculoskeletal: No Clubbing, No Cyanosis and No Edema
Neuro: Awake, Alert and Oriented
Psych: Calm
A/P:
Mr. Patrice Mera is a 50 yo man with hx polysubstance abuse, prior CVA (thalamic bleed; right hemiplegia), essential HTN, admitted 04/30 with septic shock 2/2 MRSA bacteremia, SINDY with anion gap metabolic acidosis and hypoxemic respiratory failure.
He is found to have septic joint right knee and development of necrotizing fasciitis.
#Acute respiratory failure, VDRF
-remains On 1 lt oxygen currently. Denies SOB
-CT scan of the chest 05/27 shows stability
- Labs repeated today unremarkable; normal CPK
- Patient agreeable to decreasing narcotics as much as possible and even improving be able to taper off
prior to today:
-patient was intubated on admission for multiple reasons in setting of septic shock, pneumonia, septic emboli
-CTA without PE
-s/p self extubation on 05/05
-CT Chest -noted with bilateral cavitary nodules -repeat chest CT next week to follow on it
-Methylprednisolone 40 mg IV daily started on 05/11/25 per pulmonary-getting switched to oral prednisone for 5 days-last day 05/20.
#MRSA Bacteremia
Surveillance blood cultures are negative
Continue antibiotics per ID-on ceftaroline and daptomycin
CMP and CPK are ok checked a couple of days ago
prior to today:
Septic Shock - patient was on Levo, Vaso, Epi, Giapreza; remains off pressors
Septic Arthritis Right Knee
Necrotizing Fasciitis right medial thigh and calf
- JEAN 05/06 without e/o vegetation
- Right knee joint aspirate positive for MRSA 05/06
- Exam 05/07 with new concern for necrotizing fasciitis right medial thigh and calf Daily wound care and packing-of the 2 wounds
- Appreciate general surgery and ortho, patient is s/p I&D of necrotizing soft tissue infection and washout right knee on 05/07/25
- 05/07 antibiotics changed to IV Daptomycin Teflaro started on 05/11/2025
- Last positive Blood cultures from 05/09, negative since 05/11/25.
-Blood pressure stable. White count improving -follow for now
#Right second toe infection Gangrene
- stable
prior to today:
-Appreciate ID and Podiatry
-Antibiotics as above
-Arterial US with multiphasic waveforms
-Wound care Betadine soaked gauze to toe - change every day
-S/P Right 2nd toe amputation secondary to gangrenous changes with exposed bone 05/09/25
# Acute kidney injury - ATN in setting of septic shock
Cr stable
prior to today:
Metabolic Acidosis Resolved
-Patient briefly required CRRT but could not tolerate long
-Ultrasound of the kidneys without obstruction
-Appreciate Renal
-SINDY now resolved
-Cheng discontinued on 05/06
- Creatinine stable
# Anemia secondary to acute illness. H&H stable
# Thrombocytosis secondary to infection-resolved
# Anasarca
# Hypoalbuminemia
# Drug abuse urine drug screen positive for Fentanyl, Benzos, Amphetamines and Methamphetamines
Decreased oxycodone from 20 to 10 and from 10 to 5 and space out Ativan from q 4 hr to bid as needed and tolerating well
prior to today:
Patient was discharged to a rehab last admission however he stayed there only for 2 days and signed himself out
# Multidrug resistant hypertension-currently blood pressure stable without medicines.
Stable
prior to today:
Patient was on Coreg, losartan, clonidine, Aldactone as outpatient.
- Patient back on clonidine, spironolactone, losartan, Coreg.
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 Transferred to [place] . Pt says he was there for 3 months and has weakness of right side and facial droop.
stable
prior to today:
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
*confirmed cannot get MRI here given shunt
#Vitamin D deficiency-continue replacement
#Chronic back pain
#Morbid obesity with a BMI of 35- Weight loss recommended
#History of nephrolithiasis
#Possible sleep apnea-needs outpatient study as OP.
#ADHD
#Hepatic steatosis per prior imaging-outpatient follow-up
#Active smoker-cessation counseling when able
#DVT prophylaxis-Lovenox
#Full code
CW IV abx regimen per ID
Remains medically stable for DC
Anticipated Discharge: > 48 hours
Subjective/Interval History
-
Date of Service: June 11, 2025
No new complaints
Objective Data
-
Vital Signs:
Vital Signs
Temp Pulse Resp BP Pulse Ox
98.0 F 64 18 136/80 97
06/11/25 07:00 06/11/25 08:41 06/11/25 07:00 06/11/25 08:41 06/11/25 07:00
I&O
06/10/25 06/11/25 06/12/25
06:59 06:59 06:59
Intake Total 960 / 960 1280 / 1280
Output Total 1350 / 1350 1150 / 1150
Balance -390 / -390 130 / 130
--- NOTE | 2025-06-11 12:05 | W.PN.ID1 ---
Date of Service
Date of Service: June 11, 2025
Today's Communication
Continue antibiotics. See below�
Assessment / Plan
Sustained (04/30 - 05/09) complicated MRSA bacteremia
- Blood cultures clear as of 05/11/2025
Pulmonary septic emboli
Cavitary MRSA PNA
Right knee septic arthritis
- s/p washout 05/07. Cultures with MRSA
Right thigh & calf necrotizing soft tissue infection
Right second toe infection/gangrene/osteomyelitis; s/p amputation
Fever - resolved
Leukocytosis - stable
s/p Hypoxemic respiratory failure, self extubated 05/05
SINDY; resolved
Substance abuse (UDS with fentanyl, amphetamine, methamphetamine, benzodiazepine)
Hx CVA (thalamic bleed) with right hemiplegia
Chronic back pain
Recommendations:
05/01/20 ECHO (TTE) without valvular disease. 05/06/25 ECHO (JEAN): no valvular vegetation noted.
Sputum cx: MRSA
Blood cx's negative 05/11 forward
05/06 R knee fluid: 41,220 WBC, 54% polys, neg crystals.
Synovial cx : MRSA
05/07/25 - s/p washout of R knee (+PUS). Cx MRSA
05/07/25 - s/p I+D right thigh and calf. Cx MRSA
05/09/25 s/p R 2nd toe amputation
Continue Daptomycin IV (d#33).
- Monitor CK while on Dapto. Currently stable.
Continue ceftaroline (d#29)
Continue abx through 06/22/2025
Follow WBC count, platelets, CPK, temperature, O2 requirements.
White count stable. Continuing to follow.
����������������������������������������������������������
Chief Complaint
-: Clinical Sepsis, Pneumonia and Bacteremia
Subjective / Review of Systems
Review of Systems: No Fever, No Chills, Cough (Occasional), Sputum Production (Occasional) and No Chest Pain
Vital Signs / Physical Exam
Vital Signs
Vital Signs
Temp Pulse Resp BP Pulse Ox
98.0 F 64 18 136/80 97
06/11/25 07:00 06/11/25 08:41 06/11/25 07:00 06/11/25 08:41 06/11/25 10:30
Physical Exam
Constitutional: No Acute Distress, Comfortable, Chronically Ill and Non-toxic
Cardiovascular: S1/S2; Negative S3/S4
Pulmonary: Coarse and Non Labored; Negative Wheezes or Rales
Gastrointestinal: Non Distended and Normal Bowel Sounds
Extremities: Edema, Venous Insufficiency (Bilateral lower extremities) and Other (LE stasis dermatitis)
Wound: Other (Incisional knee wound - C/D/I and essentially healed with a few crusts. Right thigh wound with granular base. No periwound erythema. Right calf wound with granular base. No periwound erythema.)
Neurological: Awake and Alert
Psychological: Calm
Objective Data
Lab Data
Lab Results
06/10/25 08:00
06/10/25 08:00
PT 20.0 Sec (11.4-14.6) H 04/30/25 19:46
INR 1.65 04/30/25 19:46
APTT Cancelled 05/04/25 14:45
Estimated Creat Clear > 125 ml/min 06/10/25 08:00
Lactic Acid 1.9 mmol/L (0.7-2.0) 05/01/25 12:18
Total Bilirubin 0.5 mg/dl (0.2-1.3) 06/07/25 06:14
AST 13 U/L (17-59) L 06/07/25 06:14
ALT 11 U/L (0-50) 06/07/25 06:14
Alkaline Phosphatase 102 U/L (38-126) 06/07/25 06:14
Most recent labs reviewed.
Micro Results:
05/16/25 04:52 Blood Culture - Final
Blood/Venous No Growth - Final Report
05/15/25 05:39 Blood Culture - Final
Blood/Venous No Growth - Final Report
05/14/25 03:20 Blood Culture - Final
Blood/Venous No Growth - Final Report
05/13/25 09:45 Blood Culture - Final
Blood/Venous No Growth - Final Report
05/12/25 05:34 Blood Culture - Final
Blood/Venous No Growth - Final Report
05/11/25 12:40 Blood Culture - Final
Blood/Venous No Growth - Final Report
05/09/25 04:01 Blood Culture - Final
Blood/Venous Staph aureus MRSA
Gram Stain - Final
05/08/25 04:21 Blood Culture - Final
Blood/Venous Staph aureus MRSA
Gram Stain - Final
05/07/25 04:55 Blood Culture - Final
Blood/Venous Staph aureus MRSA
Gram Stain - Final
05/06/25 08:16 Blood Culture - Final
Blood/Venous Staph aureus MRSA
Gram Stain - Final
05/07/25 18:35 Wound Culture - Final
Knee - Right Staph aureus MRSA
Gram Stain - Final
05/07/25 18:35 Anaerobic Culture - Final
Knee - Right NO ANAEROBES ISOLATED
05/07/25 18:35 Wound Culture - Final
Leg - Right Staph aureus MRSA
Gram Stain - Final
05/07/25 18:35 Anaerobic Culture - Final
Leg - Right NO ANAEROBES ISOLATED
05/05/25 03:34 Blood Culture - Final
Blood/Venous No Growth - Final Report
05/03/25 04:25 Blood Culture - Final
Blood/Venous Staph aureus MRSA
Gram Stain - Final
05/02/25 03:16 Blood Culture - Final
Blood/Venous Staph aureus MRSA
Gram Stain - Final
05/04/25 03:13 Blood Culture - Final
Blood/Venous No Growth - Final Report
05/06/25 13:19 Body Fluid Culture - Final
Synovial Fluid Staph aureus MRSA
Gram Stain - Final
04/30/25 19:46 Blood Culture - Final
Blood/Venous Staph aureus MRSA
Gram Stain - Final
05/04/25 09:25 Respiratory Culture - Final
Endotracheal Staph aureus MRSA
Gram Stain - Final
05/01/25 17:45 Blood Culture - Final
Blood/Venous Staph aureus MRSA
Gram Stain - Final
04/30/25 19:46 Blood Culture - Final
Blood/Venous Staph aureus MRSA
Gram Stain - Final
05/01/25 01:32 Urine Culture - Final
Urine Yeast
05/01/25 01:17 Blood Parasites Smear - Final
Blood/Venous
04/30/25 23:02 Influenza Types A & B (GIORGIO) - Final
Nasal Swab Negative for Influenza A & B, NAAT
Negative results must be combined with clinical observations
and patient history.
Nucleic Acid Amplification test (NAAT)performed on the
[employer] platform.
Imaging:
05/27/2025 CT chest without contrast: overall decreased bilateral consolidation. Decreased or unchanged size of bilateral nodules and cavitary lesions, with decreased wall thickening of the cavitary lesions. Small bilateral pleural effusions noted,
decreased on the right and unchanged on the left. No abnormally enlarged mediastinal lymph nodes identified. No pericardial effusion. Please see full dictation for additional detail.
05/16/2025 CXR (portable): extensive heterogeneous opacities bilaterally. A 6.2 cm cavitary right lower lobe lesion again noted. No pneumothorax or pleural effusion. Mild cardiac enlargement.
05/12/2025 CXR (portable): improved aeration of the right upper lung compared to prior days imaging. Otherwise, extensive diffuse bilateral patchy, nodular and confluent airspace opacities.
05/02/25 CT RLE: Subcutaneous stranding within the soft tissues of the anterior right thigh, and [id number] anterior soft tissues. No drainable abscess is appreciated. Moderate suprapatellar joint effusion, with areas of loculation.
05/01/2025 ECHO (TTE): EF 55%. Normal biventricular size and systolic function. No significant valvular disease. No obvious vegetations.
05/01/2025 CXR (portable): bilateral interstitial and airspace disease noted which may reflect pulmonary edema or pneumonia. Small bilateral pleural effusions noted. Please see full dictation for additional detail.
05/01/2025 Abdominal x-ray. Enteric tube noted in stomach.
05/01/2025 Renal ultrasound: unremarkable renal ultrasound without hydronephrosis, contour deforming solid renal mass or echogenic shadowing foci to suggest renal calculi. Bilateral pleural effusions noted.
05/01/2025 Duplex ultrasound lower extremity: no evidence of DVT in the bilateral lower extremities
04/30/2025 X-ray right foot: soft tissue injury versus ulceration involving the second digit with soft tissue swelling. The cortex of the distal phalanx is indistinct and the possibility of osteomyelitis cannot be excluded. There is soft tissue
swelling of the first digit. No radiographic evidence to suggest osteomyelitis. Please see full dictation for additional detail.
[2025-06-11 14:26] VITALS: O2SAT 97
[2025-06-11 14:48] VITALS: BP 116/67; PULSE 82; O2SAT 97
[2025-06-11 15:00] VITALS: BP 121/68
[2025-06-11] MEDS: CUBICIN 130 MG IV (15:15)
--- NOTE | 2025-06-11 15:47 | CM ---
Patient seen at bedside
cont with IV antibiotics-ceftaroline,daptomycin
wound care
Continue bed search for SNF
PLAN: SNF, pending acceptance/bed availability
[2025-06-11] MEDS: LOVENOX 40 MG SC (18:14)
[2025-06-11] MEDS: ROXICODONE 5 MG PO ×2 (18:16→23:14)
[2025-06-11 23:22] VITALS: BP 124/63
[2025-06-12] MEDS: TEFLARO 270 MG IV ×3 (00:04→16:58)
[2025-06-12 06:10] VITALS: BMI 31.4
[2025-06-12] MEDS: ROXICODONE 5 MG PO ×4 (06:34→22:13)
[2025-06-12 07:15] VITALS: BP 141/84
[2025-06-12] MEDS: COZAAR 100 MG PO (07:37)
[2025-06-12] MEDS: PROTONIX 40 MG PO (07:37)
[2025-06-12] MEDS: SENOKOT PO ×3 (07:38→20:39)
[2025-06-12] MEDS: COREG 25 MG PO ×2 (07:38→20:38)
[2025-06-12] MEDS: ALDACTONE 50 MG PO (07:39)
[2025-06-12] MEDS: COLACE PO ×3 (07:39→20:38)
[2025-06-12] MEDS: CATAPRES 0.2 MG PO ×2 (07:39→20:38)
[2025-06-12] MEDS: MYCOSTATIN ORAL SUSPENSION 5 ML PO ×4 (07:39→22:13)
[2025-06-12] MEDS: MIRALAX PO ×2 (07:40→07:47)
[2025-06-12] MEDS: DESENEX/MITRAZOL/ZEASORB 1 APPLIC TOPICAL ×2 (07:48→20:39)
[2025-06-12] MEDS: DAKIN'S SOLUTION 0.125% 1/4 STRENGTH 473 ML TOPICAL (07:48)
[2025-06-12] MEDS: HYDROPHOR 1 APPLIC TOPICAL (07:49)
--- NOTE | 2025-06-12 10:20 | W.PN.HOSP.TC ---
Today's Communication/Plan
-
Discharge planning
Assessment / Plan
Assessment / Plan
Physical exam:
General: Chronically ill
HEENT: Normocephalic, Atraumatic and Moist Mucous Membranes
Respiratory: Clear to Auscultation; Negative Wheezes, Rales or Rhonchi
Cardiac: Regular Rhythm and S1/S2
GI: Soft, Nontender and Nondistended
Musculoskeletal: No Clubbing, No Cyanosis and No Edema
Neuro: Awake, Alert and Oriented
Psych: Calm
A/P:
Mr. Patrice Mera is a 50 yo man with hx polysubstance abuse, prior CVA (thalamic bleed; right hemiplegia), essential HTN, admitted 04/30 with septic shock 2/2 MRSA bacteremia, SINDY with anion gap metabolic acidosis and hypoxemic respiratory failure.
He is found to have septic joint right knee and development of necrotizing fasciitis.
#Acute respiratory failure, VDRF
-remains On 1 lt oxygen currently. Denies SOB
-CT scan of the chest 05/27 shows stability
- Labs repeated today unremarkable; normal CPK
- Patient agreeable to decreasing narcotics as much as possible and even improving be able to taper off
prior to today:
-patient was intubated on admission for multiple reasons in setting of septic shock, pneumonia, septic emboli
-CTA without PE
-s/p self extubation on 05/05
-CT Chest -noted with bilateral cavitary nodules -repeat chest CT next week to follow on it
-Methylprednisolone 40 mg IV daily started on 05/11/25 per pulmonary-getting switched to oral prednisone for 5 days-last day 05/20.
#MRSA Bacteremia
Surveillance blood cultures are negative
Continue antibiotics per ID-on ceftaroline and daptomycin
CMP and CPK are ok checked a couple of days ago
prior to today:
Septic Shock - patient was on Levo, Vaso, Epi, Giapreza; remains off pressors
Septic Arthritis Right Knee
Necrotizing Fasciitis right medial thigh and calf
- JEAN 05/06 without e/o vegetation
- Right knee joint aspirate positive for MRSA 05/06
- Exam 05/07 with new concern for necrotizing fasciitis right medial thigh and calf Daily wound care and packing-of the 2 wounds
- Appreciate general surgery and ortho, patient is s/p I&D of necrotizing soft tissue infection and washout right knee on 05/07/25
- 05/07 antibiotics changed to IV Daptomycin Teflaro started on 05/11/2025
- Last positive Blood cultures from 05/09, negative since 05/11/25.
-Blood pressure stable. White count improving -follow for now
#Right second toe infection Gangrene
- stable
prior to today:
-Appreciate ID and Podiatry
-Antibiotics as above
-Arterial US with multiphasic waveforms
-Wound care Betadine soaked gauze to toe - change every day
-S/P Right 2nd toe amputation secondary to gangrenous changes with exposed bone 05/09/25
# Acute kidney injury - ATN in setting of septic shock
Cr stable
prior to today:
Metabolic Acidosis Resolved
-Patient briefly required CRRT but could not tolerate long
-Ultrasound of the kidneys without obstruction
-Appreciate Renal
-SINDY now resolved
-Cheng discontinued on 05/06
- Creatinine stable
# Anemia secondary to acute illness. H&H stable
# Thrombocytosis secondary to infection-resolved
# Anasarca
# Hypoalbuminemia
# Drug abuse urine drug screen positive for Fentanyl, Benzos, Amphetamines and Methamphetamines
Decreased oxycodone from 20 to 10 and from 10 to 5 and space out Ativan from q 4 hr to bid as needed and tolerating well
prior to today:
Patient was discharged to a rehab last admission however he stayed there only for 2 days and signed himself out
# Multidrug resistant hypertension-currently blood pressure stable without medicines.
Stable
prior to today:
Patient was on Coreg, losartan, clonidine, Aldactone as outpatient.
- Patient back on clonidine, spironolactone, losartan, Coreg.
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 Transferred to [place] . Pt says he was there for 3 months and has weakness of right side and facial droop.
stable
prior to today:
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
*confirmed cannot get MRI here given shunt
#Vitamin D deficiency-continue replacement
#Chronic back pain
#Morbid obesity with a BMI of 35- Weight loss recommended
#History of nephrolithiasis
#Possible sleep apnea-needs outpatient study as OP.
#ADHD
#Hepatic steatosis per prior imaging-outpatient follow-up
#Active smoker-cessation counseling when able
#DVT prophylaxis-Lovenox
#Full code
CW IV abx regimen per ID
Remains medically stable for DC
Anticipated Discharge: 24 - 48 hours
Subjective/Interval History
-
Date of Service: June 12, 2025
No new complaints. Patient agreeable to taper down narcotics even more over the next 24 hours.
Objective Data
-
Vital Signs:
Vital Signs
Temp Pulse Resp BP Pulse Ox
97.5 F 69 18 141/84 95
06/12/25 07:15 06/12/25 07:39 06/12/25 07:15 06/12/25 07:39 06/12/25 07:15
I&O
06/11/25 06/12/25 06/13/25
06:59 06:59 06:59
Intake Total 1280 / 1280 700 / 700
Output Total 1150 / 1150 800 / 800
Balance 130 / 130 -100 / -100
--- NOTE | 2025-06-12 12:04 | W.PN.ID1 ---
Date of Service
Date of Service: June 12, 2025
Today's Communication
Continue antibiotics.
Assessment / Plan
Sustained (04/30 - 05/09) complicated MRSA bacteremia
- Blood cultures clear as of 05/11/2025
Pulmonary septic emboli
Cavitary MRSA PNA
Right knee septic arthritis
- s/p washout 05/07. Cultures with MRSA
Right thigh & calf necrotizing soft tissue infection
Right second toe infection/gangrene/osteomyelitis; s/p amputation
Fever - resolved
Leukocytosis - stable
s/p Hypoxemic respiratory failure, self extubated 05/05
SINDY; resolved
Substance abuse (UDS with fentanyl, amphetamine, methamphetamine, benzodiazepine)
Hx CVA (thalamic bleed) with right hemiplegia
Chronic back pain
Recommendations:
05/01/20 ECHO (TTE) without valvular disease. 05/06/25 ECHO (JEAN): no valvular vegetation noted.
Sputum cx: MRSA
Blood cx's negative 05/11 forward
05/06 R knee fluid: 41,220 WBC, 54% polys, neg crystals.
Synovial cx : MRSA
05/07/25 - s/p washout of R knee (+PUS). Cx MRSA
05/07/25 - s/p I+D right thigh and calf. Cx MRSA
05/09/25 s/p R 2nd toe amputation
Continue Daptomycin IV (d#34).
- Monitor CK while on Dapto. Currently stable.
Continue ceftaroline (d#30)
Continue abx through 06/22/2025
Follow WBC count, platelets, CPK, temperature, O2 requirements.
White count stable. Continuing to follow.
����������������������������������������������������������
Chief Complaint
-: Clinical Sepsis, Pneumonia and Bacteremia
Subjective / Review of Systems
Review of Systems: No Fever and No Chills
Vital Signs / Physical Exam
Vital Signs
Vital Signs
Temp Pulse Resp BP Pulse Ox
97.5 F 69 18 141/84 95
06/12/25 07:15 06/12/25 07:39 06/12/25 07:15 06/12/25 07:39 06/12/25 07:15
Physical Exam
Constitutional: No Acute Distress, Comfortable, Chronically Ill and Non-toxic
Cardiovascular: S1/S2; Negative S3/S4
Pulmonary: Coarse and Non Labored
Gastrointestinal: Non Tender, Non Distended and Normal Bowel Sounds
Extremities: Edema, Venous Insufficiency (Bilateral lower extremities) and Other (LE stasis dermatitis)
Wound: Other (Incisional knee wound - C/D/I and essentially healed with a few crusts. Right thigh wound with granular base. No periwound erythema. Right calf wound with granular base. No periwound erythema.)
Psychological: Calm
Objective Data
Lab Data
Lab Results
06/10/25 08:00
06/10/25 08:00
PT 20.0 Sec (11.4-14.6) H 04/30/25 19:46
INR 1.65 04/30/25 19:46
APTT Cancelled 05/04/25 14:45
Estimated Creat Clear > 125 ml/min 06/10/25 08:00
Lactic Acid 1.9 mmol/L (0.7-2.0) 05/01/25 12:18
Total Bilirubin 0.5 mg/dl (0.2-1.3) 06/07/25 06:14
AST 13 U/L (17-59) L 06/07/25 06:14
ALT 11 U/L (0-50) 06/07/25 06:14
Alkaline Phosphatase 102 U/L (38-126) 06/07/25 06:14
Most recent labs reviewed.
Micro Results:
05/16/25 04:52 Blood Culture - Final
Blood/Venous No Growth - Final Report
05/15/25 05:39 Blood Culture - Final
Blood/Venous No Growth - Final Report
05/14/25 03:20 Blood Culture - Final
Blood/Venous No Growth - Final Report
05/13/25 09:45 Blood Culture - Final
Blood/Venous No Growth - Final Report
05/12/25 05:34 Blood Culture - Final
Blood/Venous No Growth - Final Report
05/11/25 12:40 Blood Culture - Final
Blood/Venous No Growth - Final Report
05/09/25 04:01 Blood Culture - Final
Blood/Venous Staph aureus MRSA
Gram Stain - Final
05/08/25 04:21 Blood Culture - Final
Blood/Venous Staph aureus MRSA
Gram Stain - Final
05/07/25 04:55 Blood Culture - Final
Blood/Venous Staph aureus MRSA
Gram Stain - Final
05/06/25 08:16 Blood Culture - Final
Blood/Venous Staph aureus MRSA
Gram Stain - Final
05/07/25 18:35 Wound Culture - Final
Knee - Right Staph aureus MRSA
Gram Stain - Final
05/07/25 18:35 Anaerobic Culture - Final
Knee - Right NO ANAEROBES ISOLATED
05/07/25 18:35 Wound Culture - Final
Leg - Right Staph aureus MRSA
Gram Stain - Final
05/07/25 18:35 Anaerobic Culture - Final
Leg - Right NO ANAEROBES ISOLATED
05/05/25 03:34 Blood Culture - Final
Blood/Venous No Growth - Final Report
05/03/25 04:25 Blood Culture - Final
Blood/Venous Staph aureus MRSA
Gram Stain - Final
05/02/25 03:16 Blood Culture - Final
Blood/Venous Staph aureus MRSA
Gram Stain - Final
05/04/25 03:13 Blood Culture - Final
Blood/Venous No Growth - Final Report
05/06/25 13:19 Body Fluid Culture - Final
Synovial Fluid Staph aureus MRSA
Gram Stain - Final
04/30/25 19:46 Blood Culture - Final
Blood/Venous Staph aureus MRSA
Gram Stain - Final
05/04/25 09:25 Respiratory Culture - Final
Endotracheal Staph aureus MRSA
Gram Stain - Final
05/01/25 17:45 Blood Culture - Final
Blood/Venous Staph aureus MRSA
Gram Stain - Final
04/30/25 19:46 Blood Culture - Final
Blood/Venous Staph aureus MRSA
Gram Stain - Final
05/01/25 01:32 Urine Culture - Final
Urine Yeast
05/01/25 01:17 Blood Parasites Smear - Final
Blood/Venous
04/30/25 23:02 Influenza Types A & B (GIORGIO) - Final
Nasal Swab Negative for Influenza A & B, NAAT
Negative results must be combined with clinical observations
and patient history.
Nucleic Acid Amplification test (NAAT)performed on the
[employer] platform.
Imaging:
05/27/2025 CT chest without contrast: overall decreased bilateral consolidation. Decreased or unchanged size of bilateral nodules and cavitary lesions, with decreased wall thickening of the cavitary lesions. Small bilateral pleural effusions noted,
decreased on the right and unchanged on the left. No abnormally enlarged mediastinal lymph nodes identified. No pericardial effusion. Please see full dictation for additional detail.
05/16/2025 CXR (portable): extensive heterogeneous opacities bilaterally. A 6.2 cm cavitary right lower lobe lesion again noted. No pneumothorax or pleural effusion. Mild cardiac enlargement.
05/12/2025 CXR (portable): improved aeration of the right upper lung compared to prior days imaging. Otherwise, extensive diffuse bilateral patchy, nodular and confluent airspace opacities.
05/02/25 CT RLE: Subcutaneous stranding within the soft tissues of the anterior right thigh, and [id number] anterior soft tissues. No drainable abscess is appreciated. Moderate suprapatellar joint effusion, with areas of loculation.
05/01/2025 ECHO (TTE): EF 55%. Normal biventricular size and systolic function. No significant valvular disease. No obvious vegetations.
05/01/2025 CXR (portable): bilateral interstitial and airspace disease noted which may reflect pulmonary edema or pneumonia. Small bilateral pleural effusions noted. Please see full dictation for additional detail.
05/01/2025 Abdominal x-ray. Enteric tube noted in stomach.
05/01/2025 Renal ultrasound: unremarkable renal ultrasound without hydronephrosis, contour deforming solid renal mass or echogenic shadowing foci to suggest renal calculi. Bilateral pleural effusions noted.
05/01/2025 Duplex ultrasound lower extremity: no evidence of DVT in the bilateral lower extremities
04/30/2025 X-ray right foot: soft tissue injury versus ulceration involving the second digit with soft tissue swelling. The cortex of the distal phalanx is indistinct and the possibility of osteomyelitis cannot be excluded. There is soft tissue
swelling of the first digit. No radiographic evidence to suggest osteomyelitis. Please see full dictation for additional detail.
--- NOTE | 2025-06-12 14:08 | CM ---
Call placed to Angela Wilkins at [facility] , received message that she is out of office. Call through to and asked to speak to a UR Enrober per instructions on Angela's vm. Spoke to Geri. She was unable to pull up patient
under policy number [id number] that is in our system. Provided Geri patient's name and . She found an eligible [facility], LTSS policy for him -[id number]. I made her aware per Kathie Claudette's vm she stated to call through to UR
Department and ask to speak to UR Enrober. Brii messaged her Enrober in Intake, They will have a UR Enrober call me back. Call placed to [facility] , spoke to Mariana, provided active policy that Geri had provided [phone]. Await
call back to request assistance with placement of patient, as multiple facilities have declined him due to cost of his 2 IV antibiotics exceed what they are reimbursed by [facility]. Update to CM.
[2025-06-12] MEDS: CUBICIN 130 MG IV (14:11)
[2025-06-12 15:30] VITALS: BP 138/88
[2025-06-12] MEDS: LOVENOX 40 MG SC (16:58)
[2025-06-12 23:00] VITALS: BP 138/63
[2025-06-13] MEDS: TEFLARO 270 MG IV ×3 (00:13→15:26)
[2025-06-13] MEDS: ROXICODONE 5 MG PO ×3 (03:51→12:33)
[2025-06-13 07:13] VITALS: BP 153/91
[2025-06-13] MEDS: SENOKOT PO ×2 (08:18→20:03)
[2025-06-13] MEDS: COLACE PO ×2 (08:25→20:06)
[2025-06-13] MEDS: MIRALAX PO (08:25)
[2025-06-13] MEDS: CATAPRES 0.2 MG PO ×2 (08:27→19:58)
[2025-06-13] MEDS: ALDACTONE 50 MG PO (08:27)
[2025-06-13] MEDS: MYCOSTATIN ORAL SUSPENSION 5 ML PO ×4 (08:27→21:53)
[2025-06-13] MEDS: PROTONIX 40 MG PO (08:27)
[2025-06-13] MEDS: COZAAR 100 MG PO (08:27)
[2025-06-13] MEDS: COREG 25 MG PO ×2 (08:27→19:59)
[2025-06-13] MEDS: DAKIN'S SOLUTION 0.125% 1/4 STRENGTH 473 ML TOPICAL (08:29)
[2025-06-13] MEDS: HYDROPHOR 1 APPLIC TOPICAL (08:29)
[2025-06-13] MEDS: DESENEX/MITRAZOL/ZEASORB 1 APPLIC TOPICAL (08:32)
[2025-06-13 09:05] VITALS: BMI 31.7
--- NOTE | 2025-06-13 10:47 | W.PN.HOSP.TC ---
Today's Communication/Plan
-
Discharge planning
Assessment / Plan
Assessment / Plan
Physical exam:
General: Chronically ill
HEENT: Normocephalic, Atraumatic and Moist Mucous Membranes
Respiratory: Clear to Auscultation; Negative Wheezes, Rales or Rhonchi
Cardiac: Regular Rhythm and S1/S2
GI: Soft, Nontender and Nondistended
Musculoskeletal: No Clubbing, No Cyanosis and No Edema
Neuro: Awake, Alert and Oriented
Psych: Calm
A/P:
Mr. Patrice Mera is a 50 yo man with hx polysubstance abuse, prior CVA (thalamic bleed; right hemiplegia), essential HTN, admitted 04/30 with septic shock 2/2 MRSA bacteremia, SINDY with anion gap metabolic acidosis and hypoxemic respiratory failure.
He is found to have septic joint right knee and development of necrotizing fasciitis.
#Acute respiratory failure, VDRF
-remains On 1 lt oxygen currently. Denies SOB
-CT scan of the chest 05/27 shows stability
- Labs repeated today unremarkable; normal CPK
- Patient agreeable to decreasing narcotics as much as possible and even improving be able to taper off
prior to today:
-patient was intubated on admission for multiple reasons in setting of septic shock, pneumonia, septic emboli
-CTA without PE
-s/p self extubation on 05/05
-CT Chest -noted with bilateral cavitary nodules -repeat chest CT next week to follow on it
-Methylprednisolone 40 mg IV daily started on 05/11/25 per pulmonary-getting switched to oral prednisone for 5 days-last day 05/20.
#MRSA Bacteremia
Surveillance blood cultures are negative
Continue antibiotics per ID-on ceftaroline and daptomycin
CMP and CPK are ok checked a couple of days ago
prior to today:
Septic Shock - patient was on Levo, Vaso, Epi, Giapreza; remains off pressors
Septic Arthritis Right Knee
Necrotizing Fasciitis right medial thigh and calf
- JEAN 05/06 without e/o vegetation
- Right knee joint aspirate positive for MRSA 05/06
- Exam 05/07 with new concern for necrotizing fasciitis right medial thigh and calf Daily wound care and packing-of the 2 wounds
- Appreciate general surgery and ortho, patient is s/p I&D of necrotizing soft tissue infection and washout right knee on 05/07/25
- 05/07 antibiotics changed to IV Daptomycin Teflaro started on 05/11/2025
- Last positive Blood cultures from 05/09, negative since 05/11/25.
-Blood pressure stable. White count improving -follow for now
#Right second toe infection Gangrene
- stable
prior to today:
-Appreciate ID and Podiatry
-Antibiotics as above
-Arterial US with multiphasic waveforms
-Wound care Betadine soaked gauze to toe - change every day
-S/P Right 2nd toe amputation secondary to gangrenous changes with exposed bone 05/09/25
# Acute kidney injury - ATN in setting of septic shock
Cr stable
prior to today:
Metabolic Acidosis Resolved
-Patient briefly required CRRT but could not tolerate long
-Ultrasound of the kidneys without obstruction
-Appreciate Renal
-SINDY now resolved
-Cheng discontinued on 05/06
- Creatinine stable
# Anemia secondary to acute illness. H&H stable
# Thrombocytosis secondary to infection-resolved
# Anasarca
# Hypoalbuminemia
# Drug abuse urine drug screen positive for Fentanyl, Benzos, Amphetamines and Methamphetamines
Decreased oxycodone from 20 to 10 and from 10 to 5 and space out Ativan from q 4 hr to bid as needed and tolerating well
prior to today:
Patient was discharged to a rehab last admission however he stayed there only for 2 days and signed himself out
# Multidrug resistant hypertension-currently blood pressure stable without medicines.
Stable
prior to today:
Patient was on Coreg, losartan, clonidine, Aldactone as outpatient.
- Patient back on clonidine, spironolactone, losartan, Coreg.
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 Transferred to [place] . Pt says he was there for 3 months and has weakness of right side and facial droop.
stable
prior to today:
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
*confirmed cannot get MRI here given shunt
#Vitamin D deficiency-continue replacement
#Chronic back pain
#Morbid obesity with a BMI of 35- Weight loss recommended
#History of nephrolithiasis
#Possible sleep apnea-needs outpatient study as OP.
#ADHD
#Hepatic steatosis per prior imaging-outpatient follow-up
#Active smoker-cessation counseling when able
#DVT prophylaxis-Lovenox
#Full code
CW IV abx regimen per ID
Remains medically stable for DC
Anticipated Discharge: > 48 hours
Subjective/Interval History
-
Date of Service: June 13, 2025
No new complaints.
Objective Data
-
Vital Signs:
Vital Signs
Temp Pulse Resp BP Pulse Ox
97.6 F 69 17 153/91 96
06/13/25 07:13 06/13/25 07:13 06/13/25 07:13 06/13/25 07:13 06/13/25 07:30
I&O
06/12/25 06/13/25 06/14/25
06:59 06:59 06:59
Intake Total 700 / 700 1040 / 1040
Output Total 800 / 800 900 / 900
Balance -100 / -100 140 / 140
--- NOTE | 2025-06-13 13:52 | W.PN.ID1 ---
Date of Service
Date of Service: June 13, 2025
Today's Communication
Continue antibiotics.
Assessment / Plan
Sustained (04/30 - 05/09) complicated MRSA bacteremia
- Blood cultures clear as of 05/11/2025
Pulmonary septic emboli
Cavitary MRSA PNA
Right knee septic arthritis
- s/p washout 05/07. Cultures with MRSA
Right thigh & calf necrotizing soft tissue infection
Right second toe infection/gangrene/osteomyelitis; s/p amputation
Fever - resolved
Leukocytosis - stable
s/p Hypoxemic respiratory failure, self extubated 05/05
SINDY; resolved
Substance abuse (UDS with fentanyl, amphetamine, methamphetamine, benzodiazepine)
Hx CVA (thalamic bleed) with right hemiplegia
Chronic back pain
Recommendations:
05/01/20 ECHO (TTE) without valvular disease. 05/06/25 ECHO (JEAN): no valvular vegetation noted.
Sputum cx: MRSA
Blood cx's negative 05/11 forward
05/06 R knee fluid: 41,220 WBC, 54% polys, neg crystals.
Synovial cx : MRSA
05/07/25 - s/p washout of R knee (+PUS). Cx MRSA
05/07/25 - s/p I+D right thigh and calf. Cx MRSA
05/09/25 s/p R 2nd toe amputation
Continue Daptomycin IV (d#35).
- Monitor CK while on Dapto. Currently stable.
Continue ceftaroline (d#31)
Continue abx through 06/22/2025
Follow WBC count, platelets, CPK, temperature, O2 requirements.
White count stable. Continuing to follow.
����������������������������������������������������������
Chief Complaint
-: Clinical Sepsis, Pneumonia and Bacteremia
Subjective / Review of Systems
Review of Systems: No Fever, No Chills and No Chest Pain
Vital Signs / Physical Exam
Vital Signs
Vital Signs
Temp Pulse Resp BP Pulse Ox
97.6 F 69 17 153/91 96
06/13/25 07:13 06/13/25 07:13 06/13/25 07:13 06/13/25 07:13 06/13/25 07:30
Physical Exam
Constitutional: No Acute Distress, Comfortable, Chronically Ill and Non-toxic
Cardiovascular: S1/S2; Negative S3/S4
Pulmonary: Coarse and Non Labored
Gastrointestinal: Non Tender, Non Distended and Normal Bowel Sounds
Extremities: Edema, Venous Insufficiency (Bilateral lower extremities) and Other (LE stasis dermatitis)
Wound: Other (Incisional knee wound - C/D/I and essentially healed with a few crusts. Right thigh wound with granular base. No periwound erythema. Right calf wound with granular base. No periwound erythema.)
Psychological: Calm
Objective Data
Lab Data
Lab Results
06/10/25 08:00
06/10/25 08:00
PT 20.0 Sec (11.4-14.6) H 04/30/25 19:46
INR 1.65 04/30/25 19:46
APTT Cancelled 05/04/25 14:45
Estimated Creat Clear > 125 ml/min 06/10/25 08:00
Lactic Acid 1.9 mmol/L (0.7-2.0) 05/01/25 12:18
Total Bilirubin 0.5 mg/dl (0.2-1.3) 06/07/25 06:14
AST 13 U/L (17-59) L 06/07/25 06:14
ALT 11 U/L (0-50) 06/07/25 06:14
Alkaline Phosphatase 102 U/L (38-126) 06/07/25 06:14
Most recent labs reviewed.
Micro Results:
05/16/25 04:52 Blood Culture - Final
Blood/Venous No Growth - Final Report
05/15/25 05:39 Blood Culture - Final
Blood/Venous No Growth - Final Report
05/14/25 03:20 Blood Culture - Final
Blood/Venous No Growth - Final Report
05/13/25 09:45 Blood Culture - Final
Blood/Venous No Growth - Final Report
05/12/25 05:34 Blood Culture - Final
Blood/Venous No Growth - Final Report
05/11/25 12:40 Blood Culture - Final
Blood/Venous No Growth - Final Report
05/09/25 04:01 Blood Culture - Final
Blood/Venous Staph aureus MRSA
Gram Stain - Final
05/08/25 04:21 Blood Culture - Final
Blood/Venous Staph aureus MRSA
Gram Stain - Final
05/07/25 04:55 Blood Culture - Final
Blood/Venous Staph aureus MRSA
Gram Stain - Final
05/06/25 08:16 Blood Culture - Final
Blood/Venous Staph aureus MRSA
Gram Stain - Final
05/07/25 18:35 Wound Culture - Final
Knee - Right Staph aureus MRSA
Gram Stain - Final
05/07/25 18:35 Anaerobic Culture - Final
Knee - Right NO ANAEROBES ISOLATED
05/07/25 18:35 Wound Culture - Final
Leg - Right Staph aureus MRSA
Gram Stain - Final
05/07/25 18:35 Anaerobic Culture - Final
Leg - Right NO ANAEROBES ISOLATED
05/05/25 03:34 Blood Culture - Final
Blood/Venous No Growth - Final Report
05/03/25 04:25 Blood Culture - Final
Blood/Venous Staph aureus MRSA
Gram Stain - Final
05/02/25 03:16 Blood Culture - Final
Blood/Venous Staph aureus MRSA
Gram Stain - Final
05/04/25 03:13 Blood Culture - Final
Blood/Venous No Growth - Final Report
05/06/25 13:19 Body Fluid Culture - Final
Synovial Fluid Staph aureus MRSA
Gram Stain - Final
04/30/25 19:46 Blood Culture - Final
Blood/Venous Staph aureus MRSA
Gram Stain - Final
05/04/25 09:25 Respiratory Culture - Final
Endotracheal Staph aureus MRSA
Gram Stain - Final
05/01/25 17:45 Blood Culture - Final
Blood/Venous Staph aureus MRSA
Gram Stain - Final
04/30/25 19:46 Blood Culture - Final
Blood/Venous Staph aureus MRSA
Gram Stain - Final
05/01/25 01:32 Urine Culture - Final
Urine Yeast
05/01/25 01:17 Blood Parasites Smear - Final
Blood/Venous
04/30/25 23:02 Influenza Types A & B (GIORGIO) - Final
Nasal Swab Negative for Influenza A & B, NAAT
Negative results must be combined with clinical observations
and patient history.
Nucleic Acid Amplification test (NAAT)performed on the
[employer] platform.
Imaging:
05/27/2025 CT chest without contrast: overall decreased bilateral consolidation. Decreased or unchanged size of bilateral nodules and cavitary lesions, with decreased wall thickening of the cavitary lesions. Small bilateral pleural effusions noted,
decreased on the right and unchanged on the left. No abnormally enlarged mediastinal lymph nodes identified. No pericardial effusion. Please see full dictation for additional detail.
05/16/2025 CXR (portable): extensive heterogeneous opacities bilaterally. A 6.2 cm cavitary right lower lobe lesion again noted. No pneumothorax or pleural effusion. Mild cardiac enlargement.
05/12/2025 CXR (portable): improved aeration of the right upper lung compared to prior days imaging. Otherwise, extensive diffuse bilateral patchy, nodular and confluent airspace opacities.
05/02/25 CT RLE: Subcutaneous stranding within the soft tissues of the anterior right thigh, and [id number] anterior soft tissues. No drainable abscess is appreciated. Moderate suprapatellar joint effusion, with areas of loculation.
05/01/2025 ECHO (TTE): EF 55%. Normal biventricular size and systolic function. No significant valvular disease. No obvious vegetations.
05/01/2025 CXR (portable): bilateral interstitial and airspace disease noted which may reflect pulmonary edema or pneumonia. Small bilateral pleural effusions noted. Please see full dictation for additional detail.
05/01/2025 Abdominal x-ray. Enteric tube noted in stomach.
05/01/2025 Renal ultrasound: unremarkable renal ultrasound without hydronephrosis, contour deforming solid renal mass or echogenic shadowing foci to suggest renal calculi. Bilateral pleural effusions noted.
05/01/2025 Duplex ultrasound lower extremity: no evidence of DVT in the bilateral lower extremities
04/30/2025 X-ray right foot: soft tissue injury versus ulceration involving the second digit with soft tissue swelling. The cortex of the distal phalanx is indistinct and the possibility of osteomyelitis cannot be excluded. There is soft tissue
swelling of the first digit. No radiographic evidence to suggest osteomyelitis. Please see full dictation for additional detail.
[2025-06-13] MEDS: CUBICIN 130 MG IV (14:07)
--- NOTE | 2025-06-13 15:28 | CM ---
CM following for discharge planning. CM Director has contacted [facility] for assistance due to no facilities have accepted for SNF admission; high cost IV abx have been a limiting factor.
CM will continue to follow for SNF placement with available bed
[2025-06-13 15:31] VITALS: BP 131/79
[2025-06-13] MEDS: LOVENOX 40 MG SC (17:06)
[2025-06-13] MEDS: TYLENOL ORAL SOLUTION 650 MG PO ×2 (17:06→21:57)
[2025-06-13] MEDS: DESENEX/MITRAZOL/ZEASORB TOPICAL (20:02)
[2025-06-13 23:30] VITALS: BP 142/82
[2025-06-14] MEDS: TEFLARO 270 MG IV ×3 (00:07→14:59)
[2025-06-14 06:00] VITALS: BMI 32.3
[2025-06-14 07:43] VITALS: BP 167/93
[2025-06-14] MEDS: CATAPRES 0.2 MG PO ×2 (08:04→20:47)
[2025-06-14] MEDS: ALDACTONE 50 MG PO (08:04)
[2025-06-14] MEDS: MYCOSTATIN ORAL SUSPENSION 5 ML PO ×2 (08:04→21:48)
[2025-06-14] MEDS: TYLENOL ORAL SOLUTION 650 MG PO (08:04)
[2025-06-14] MEDS: COZAAR 100 MG PO (08:04)
[2025-06-14] MEDS: PROTONIX 40 MG PO (08:05)
[2025-06-14] MEDS: COREG 25 MG PO ×2 (08:05→20:50)
[2025-06-14] MEDS: MIRALAX PO (08:05)
[2025-06-14] MEDS: COLACE PO ×2 (08:06→21:13)
[2025-06-14] MEDS: DESENEX/MITRAZOL/ZEASORB 1 APPLIC TOPICAL ×2 (08:06→21:14)
[2025-06-14] MEDS: HYDROPHOR 1 APPLIC TOPICAL (08:06)
[2025-06-14] MEDS: DAKIN'S SOLUTION 0.125% 1/4 STRENGTH 473 ML TOPICAL (08:07)
[2025-06-14] MEDS: SENOKOT PO ×2 (08:07→21:13)
[2025-06-14] MEDS: ROXICODONE 5 MG PO ×3 (10:39→20:50)
--- NOTE | 2025-06-14 11:20 | W.PN.HOSP.TC ---
Today's Communication/Plan
-
Discharge planning
Assessment / Plan
Assessment / Plan
Physical exam:
General: Chronically ill
HEENT: Normocephalic, Atraumatic and Moist Mucous Membranes
Respiratory: Clear to Auscultation; Negative Wheezes, Rales or Rhonchi
Cardiac: Regular Rhythm and S1/S2
GI: Soft, Nontender and Nondistended
Musculoskeletal: No Clubbing, No Cyanosis and No Edema
Neuro: Awake, Alert and Oriented
Psych: Calm
A/P:
Mr. Patrice Mera is a 50 yo man with hx polysubstance abuse, prior CVA (thalamic bleed; right hemiplegia), essential HTN, admitted 04/30 with septic shock 2/2 MRSA bacteremia, SINDY with anion gap metabolic acidosis and hypoxemic respiratory failure.
He is found to have septic joint right knee and development of necrotizing fasciitis.
#Acute respiratory failure, VDRF
-remains On 1 lt oxygen currently. Denies SOB
-CT scan of the chest 05/27 shows stability
- Labs repeated today unremarkable; normal CPK
- Patient agreeable to decreasing narcotics as much as possible-will tried to taper off but he cannot tolerate now so he would like to keep low-dose for now.
prior to today:
-patient was intubated on admission for multiple reasons in setting of septic shock, pneumonia, septic emboli
-CTA without PE
-s/p self extubation on 05/05
-CT Chest -noted with bilateral cavitary nodules -repeat chest CT next week to follow on it
-Methylprednisolone 40 mg IV daily started on 05/11/25 per pulmonary-getting switched to oral prednisone for 5 days-last day 05/20.
#MRSA Bacteremia
Surveillance blood cultures are negative
Continue antibiotics per ID-on ceftaroline and daptomycin
CMP and CPK are ok checked a couple of days ago
prior to today:
Septic Shock - patient was on Levo, Vaso, Epi, Giapreza; remains off pressors
Septic Arthritis Right Knee
Necrotizing Fasciitis right medial thigh and calf
- JEAN 05/06 without e/o vegetation
- Right knee joint aspirate positive for MRSA 05/06
- Exam 05/07 with new concern for necrotizing fasciitis right medial thigh and calf Daily wound care and packing-of the 2 wounds
- Appreciate general surgery and ortho, patient is s/p I&D of necrotizing soft tissue infection and washout right knee on 05/07/25
- 05/07 antibiotics changed to IV Daptomycin Teflaro started on 05/11/2025
- Last positive Blood cultures from 05/09, negative since 05/11/25.
-Blood pressure stable. White count improving -follow for now
#Right second toe infection Gangrene
- stable
prior to today:
-Appreciate ID and Podiatry
-Antibiotics as above
-Arterial US with multiphasic waveforms
-Wound care Betadine soaked gauze to toe - change every day
-S/P Right 2nd toe amputation secondary to gangrenous changes with exposed bone 05/09/25
# Acute kidney injury - ATN in setting of septic shock
Cr stable
prior to today:
Metabolic Acidosis Resolved
-Patient briefly required CRRT but could not tolerate long
-Ultrasound of the kidneys without obstruction
-Appreciate Renal
-SINDY now resolved
-Cheng discontinued on 05/06
- Creatinine stable
# Anemia secondary to acute illness. H&H stable
# Thrombocytosis secondary to infection-resolved
# Anasarca
# Hypoalbuminemia
# Drug abuse urine drug screen positive for Fentanyl, Benzos, Amphetamines and Methamphetamines
Decreased oxycodone from 20 to 10 and from 10 to 5 and space out Ativan from q 4 hr to bid as needed and tolerating well
prior to today:
Patient was discharged to a rehab last admission however he stayed there only for 2 days and signed himself out
# Multidrug resistant hypertension-currently blood pressure stable without medicines.
Stable
prior to today:
Patient was on Coreg, losartan, clonidine, Aldactone as outpatient.
- Patient back on clonidine, spironolactone, losartan, Coreg.
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 Transferred to [place] . Pt says he was there for 3 months and has weakness of right side and facial droop.
stable
prior to today:
s/p [employer] shunt at [place]
*confirmed cannot get MRI here given shunt
#Vitamin D deficiency-continue replacement
#Chronic back pain
#Morbid obesity with a BMI of 35- Weight loss recommended
#History of nephrolithiasis
#Possible sleep apnea-needs outpatient study as OP.
#ADHD
#Hepatic steatosis per prior imaging-outpatient follow-up
#Active smoker-cessation counseling when able
#DVT prophylaxis-Lovenox
#Full code
CW IV abx regimen per ID
Remains medically stable for DC
Anticipated Discharge: 24 - 48 hours
Subjective/Interval History
-
Date of Service: June 14, 2025
No new complaints. Patient wants some of his pain medications back.
Objective Data
-
Vital Signs:
Vital Signs
Temp Pulse Resp BP Pulse Ox
97.8 F 70 16 167/93 95
06/14/25 07:43 06/14/25 07:43 06/14/25 07:43 06/14/25 07:43 06/14/25 07:43
I&O
06/13/25 06/14/25 06/15/25
06:59 06:59 06:59
Intake Total 1040 / 1040 240 / 240
Output Total 900 / 900 950 / 950 375 / 375
Balance 140 / 140 -710 / -710 -375 / -375
[2025-06-14] MEDS: MYCOSTATIN ORAL SUSPENSION PO ×2 (12:57→17:13)
[2025-06-14] MEDS: CUBICIN 130 MG IV (13:02)
[2025-06-14 15:50] VITALS: BP 171/92
[2025-06-14] MEDS: LOVENOX 40 MG SC (17:12)
[2025-06-14 22:51] VITALS: BP 158/84
[2025-06-15] MEDS: TEFLARO 270 MG IV ×3 (00:18→16:16)
[2025-06-15] MEDS: ROXICODONE 5 MG PO ×5 (01:08→19:36)
[2025-06-15 06:00] VITALS: BMI 32.0
--- NOTE | 2025-06-15 06:16 | PTCARENOTE ---
Patient refuses al morning care including CHG wipes and repositioning. Education regarding purpoe of CHG wipes and treatment attempted. Patient refused teaching and states 'i'm just going to go back to sleep.'
[2025-06-15 07:00] VITALS: BP 162/92
--- NOTE | 2025-06-15 07:19 | W.PN.HOSP.TC ---
Today's Communication/Plan
-
Discharge planning
Assessment / Plan
Assessment / Plan
Physical exam:
General: Chronically ill
HEENT: Normocephalic, Atraumatic and Moist Mucous Membranes
Respiratory: Clear to Auscultation; Negative Wheezes, Rales or Rhonchi
Cardiac: Regular Rhythm and S1/S2
GI: Soft, Nontender and Nondistended
Musculoskeletal: No Clubbing, No Cyanosis and No Edema
Neuro: Awake, Alert and Oriented
Psych: Calm
A/P:
Mr. Patrice Mera is a 50 yo man with hx polysubstance abuse, prior CVA (thalamic bleed; right hemiplegia), essential HTN, admitted 04/30 with septic shock 2/2 MRSA bacteremia, SINDY with anion gap metabolic acidosis and hypoxemic respiratory failure.
He is found to have septic joint right knee and development of necrotizing fasciitis.
#Acute respiratory failure, VDRF
-remains On 1 lt oxygen currently. Denies SOB
-CT scan of the chest 05/27 shows stability
- Labs repeated today unremarkable; normal CPK
- Patient agreeable to decreasing narcotics as much as possible-down to low-dose for now and might be able to taper off completely.
prior to today:
-patient was intubated on admission for multiple reasons in setting of septic shock, pneumonia, septic emboli
-CTA without PE
-s/p self extubation on 05/05
-CT Chest -noted with bilateral cavitary nodules -repeat chest CT next week to follow on it
-Methylprednisolone 40 mg IV daily started on 05/11/25 per pulmonary-getting switched to oral prednisone for 5 days-last day 05/20.
#MRSA Bacteremia
Surveillance blood cultures are negative
Continue antibiotics per ID-on ceftaroline and daptomycin
CMP and CPK are ok checked a couple of days ago
prior to today:
Septic Shock - patient was on Levo, Vaso, Epi, Giapreza; remains off pressors
Septic Arthritis Right Knee
Necrotizing Fasciitis right medial thigh and calf
- JEAN 05/06 without e/o vegetation
- Right knee joint aspirate positive for MRSA 05/06
- Exam 05/07 with new concern for necrotizing fasciitis right medial thigh and calf Daily wound care and packing-of the 2 wounds
- Appreciate general surgery and ortho, patient is s/p I&D of necrotizing soft tissue infection and washout right knee on 05/07/25
- 05/07 antibiotics changed to IV Daptomycin Teflaro started on 05/11/2025
- Last positive Blood cultures from 05/09, negative since 05/11/25.
-Blood pressure stable. White count improving -follow for now
#Right second toe infection Gangrene
- stable
prior to today:
-Appreciate ID and Podiatry
-Antibiotics as above
-Arterial US with multiphasic waveforms
-Wound care Betadine soaked gauze to toe - change every day
-S/P Right 2nd toe amputation secondary to gangrenous changes with exposed bone 05/09/25
# Acute kidney injury - ATN in setting of septic shock
Cr stable
prior to today:
Metabolic Acidosis Resolved
-Patient briefly required CRRT but could not tolerate long
-Ultrasound of the kidneys without obstruction
-Appreciate Renal
-SINDY now resolved
-Cheng discontinued on 05/06
- Creatinine stable
# Anemia secondary to acute illness. H&H stable
# Thrombocytosis secondary to infection-resolved
# Anasarca
# Hypoalbuminemia
# Drug abuse urine drug screen positive for Fentanyl, Benzos, Amphetamines and Methamphetamines
Decreased oxycodone from 20 to 10 and from 10 to 5 and space out Ativan from q 4 hr to bid as needed and tolerating well
prior to today:
Patient was discharged to a rehab last admission however he stayed there only for 2 days and signed himself out
# Multidrug resistant hypertension-currently blood pressure stable without medicines.
Stable
prior to today:
Patient was on Coreg, losartan, clonidine, Aldactone as outpatient.
- Patient back on clonidine, spironolactone, losartan, Coreg.
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 Transferred to [place] . Pt says he was there for 3 months and has weakness of right side and facial droop.
stable
prior to today:
s/p [facility] [employer] shunt at [place]
*confirmed cannot get MRI here given shunt
#Vitamin D deficiency-continue replacement
#Chronic back pain
#Morbid obesity with a BMI of 35- Weight loss recommended
#History of nephrolithiasis
#Possible sleep apnea-needs outpatient study as OP.
#ADHD
#Hepatic steatosis per prior imaging-outpatient follow-up
#Active smoker-cessation counseling when able
#DVT prophylaxis-Lovenox
#Full code
CW IV abx regimen per ID
Remains medically stable for DC
Anticipated Discharge: 24 - 48 hours
Subjective/Interval History
-
Date of Service: June 15, 2025
No new complaints. On supplemental oxygen. Afebrile
Objective Data
-
Labs:
Laboratory Results
06/15/25
06:00
WBC Pending
Hgb Pending
Hct Pending
Plt Count Pending
Sodium Pending
Potassium Pending
Chloride Pending
Carbon Dioxide Pending
BUN Pending
Creatinine Pending
Glucose Pending
Calcium Pending
Total Bilirubin Pending
AST Pending
ALT Pending
Alkaline Phosphatase Pending
Vital Signs:
Vital Signs
Temp Pulse Resp BP Pulse Ox
98.0 F 68 16 158/84 98
06/14/25 22:51 06/14/25 22:51 06/14/25 22:51 06/14/25 22:51 06/14/25 22:51
I&O
06/14/25 06/15/25 06/16/25
06:59 06:59 06:59
Intake Total 240 / 240 240 / 240
Output Total 950 / 950 995 / 995
Balance -710 / -710 -755 / -755
[2025-06-15] MEDS: CATAPRES 0.2 MG PO ×2 (08:19→19:35)
[2025-06-15] MEDS: COREG 25 MG PO ×2 (08:19→19:35)
[2025-06-15] MEDS: ALDACTONE 50 MG PO (08:19)
[2025-06-15] MEDS: PROTONIX 40 MG PO (08:19)
[2025-06-15] MEDS: COLACE PO ×2 (08:19→19:40)
[2025-06-15] MEDS: COZAAR 100 MG PO (08:19)
[2025-06-15] MEDS: MYCOSTATIN ORAL SUSPENSION PO ×3 (08:20→17:09)
[2025-06-15] MEDS: DESENEX/MITRAZOL/ZEASORB 1 APPLIC TOPICAL ×2 (08:20→19:37)
[2025-06-15] MEDS: SENOKOT PO ×2 (08:20→19:40)
[2025-06-15] MEDS: MIRALAX PO (08:20)
[2025-06-15] MEDS: HYDROPHOR 1 APPLIC TOPICAL (08:21)
[2025-06-15] MEDS: DAKIN'S SOLUTION 0.125% 1/4 STRENGTH 473 ML TOPICAL (08:21)
[2025-06-15] MEDS: DRISDOL (VITAMIN D2) 50000 UNITS PO (08:23)
[2025-06-15 10:42] LABS: Hematocrit 31.2 % (39.0-52.0); Hemoglobin 10.0 g/dL (13.0-18.0); Mean Corp Hgb Conc. 32.1 g/dL (33.0-37.0); Mean Corpuscular Volume 83.0 fL (80.0-94.0); Nucleated Red Blood Cells % 0 % (-); Platelet Count 404 10^3/uL (130-400); Red Cell Dist. Width 15.1 % (11.5-14.5)
[2025-06-15 11:09] LABS: ALT (SGPT) < 10 U/L (0-50); AST (SGOT) 16 U/L (17-59); Albumin 3.1 g/dl (3.5-5.0); Alkaline Phosphatase 100 U/L (38-126); Blood Urea Nitrogen 7 mg/dl (9-20); Calcium 9.3 mg/dl (8.4-10.2); Carbon Dioxide 31 mmol/L (22-30); Chloride 105 mmol/L (98-107); Estimated Creatinine Clearance > 125 ml/min; Glucose 96 mg/dl (70-99); Potassium 4.0 mmol/L (3.5-5.1); Sodium 139 mmol/L (135-145); Total Protein 7.0 g/dl (6.3-8.2); eGFR > 60.00
[2025-06-15] MEDS: CUBICIN 130 MG IV (13:18)
[2025-06-15 15:00] VITALS: BP 152/86
[2025-06-15] MEDS: LOVENOX 40 MG SC (17:08)
[2025-06-15] MEDS: MYCOSTATIN ORAL SUSPENSION 5 ML PO (21:28)
[2025-06-15 23:37] VITALS: BP 131/83
[2025-06-16] MEDS: TEFLARO 270 MG IV ×4 (00:52→23:52)
[2025-06-16] MEDS: ROXICODONE 5 MG PO ×5 (00:53→22:11)
[2025-06-16 05:47] VITALS: BMI 31.8
--- NOTE | 2025-06-16 06:02 | PTCARENOTE ---
Patient refuses moring care including CHG wash and incontinence checks. Verbalizes 'I am clean and dry. I just want to go back to sleep.'
[2025-06-16 07:00] VITALS: BP 144/88
[2025-06-16] MEDS: CATAPRES 0.2 MG PO ×2 (09:09→20:27)
[2025-06-16] MEDS: MYCOSTATIN ORAL SUSPENSION 5 ML PO ×4 (09:09→22:13)
[2025-06-16] MEDS: COZAAR 100 MG PO (09:09)
[2025-06-16] MEDS: PROTONIX 40 MG PO (09:10)
[2025-06-16] MEDS: COREG 25 MG PO ×2 (09:10→20:28)
[2025-06-16] MEDS: ALDACTONE 50 MG PO (09:10)
[2025-06-16] MEDS: DESENEX/MITRAZOL/ZEASORB 1 APPLIC TOPICAL ×2 (09:13→20:29)
[2025-06-16] MEDS: HYDROPHOR 1 APPLIC TOPICAL (09:13)
[2025-06-16] MEDS: SENOKOT PO ×2 (09:17→20:29)
[2025-06-16] MEDS: MIRALAX PO (09:17)
[2025-06-16] MEDS: COLACE PO ×2 (09:18→20:28)
[2025-06-16] MEDS: DAKIN'S SOLUTION 0.125% 1/4 STRENGTH 473 ML TOPICAL (10:08)
--- NOTE | 2025-06-16 10:58 | W.PN.HOSP.TC ---
Today's Communication/Plan
-
Ongoing disposition efforts
Assessment / Plan
Assessment / Plan
Physical exam:
General: Chronically ill
HEENT: Normocephalic, Atraumatic and Moist Mucous Membranes
Respiratory: Clear to Auscultation; Negative Wheezes, Rales or Rhonchi
Cardiac: Regular Rhythm and S1/S2
GI: Soft, Nontender and Nondistended
Musculoskeletal: No Clubbing, No Cyanosis and No Edema
Neuro: Awake, Alert and Oriented
Psych: Calm
A/P:
Mr. Patrice Mera is a 50 yo man with hx polysubstance abuse, prior CVA (thalamic bleed; right hemiplegia), essential HTN, admitted 04/30 with septic shock 2/2 MRSA bacteremia, SINDY with anion gap metabolic acidosis and hypoxemic respiratory failure.
He is found to have septic joint right knee and development of necrotizing fasciitis.
#Acute respiratory failure, VDRF
-remains On 1 lt oxygen currently. Denies SOB
-CT scan of the chest 05/27 shows stability
- Labs repeated 06/15 unremarkable; normal CPK
prior to today:
-patient was intubated on admission for multiple reasons in setting of septic shock, pneumonia, septic emboli
-CTA without PE
-s/p self extubation on 05/05
-CT Chest -noted with bilateral cavitary nodules -repeat chest CT next week to follow on it
-Methylprednisolone 40 mg IV daily started on 05/11/25 per pulmonary-getting switched to oral prednisone for 5 days-last day 05/20.
#MRSA Bacteremia
Surveillance blood cultures are negative
Continue antibiotics per ID-on ceftaroline and daptomycin
CMP and CPK are ok
prior to today:
Septic Shock - patient was on Levo, Vaso, Epi, Giapreza; remains off pressors
Septic Arthritis Right Knee
Necrotizing Fasciitis right medial thigh and calf
- JEAN 05/06 without e/o vegetation
- Right knee joint aspirate positive for MRSA 05/06
- Exam 05/07 with new concern for necrotizing fasciitis right medial thigh and calf Daily wound care and packing-of the 2 wounds
- Appreciate general surgery and ortho, patient is s/p I&D of necrotizing soft tissue infection and washout right knee on 05/07/25
- 05/07 antibiotics changed to IV Daptomycin Teflaro started on 05/11/2025
- Last positive Blood cultures from 05/09, negative since 05/11/25.
-Blood pressure stable. White count improving -follow for now
#Right second toe infection Gangrene
- stable
prior to today:
-Appreciate ID and Podiatry
-Antibiotics as above
-Arterial US with multiphasic waveforms
-Wound care Betadine soaked gauze to toe - change every day
-S/P Right 2nd toe amputation secondary to gangrenous changes with exposed bone 05/09/25
# Acute kidney injury - ATN in setting of septic shock
Cr stable
prior to today:
Metabolic Acidosis Resolved
-Patient briefly required CRRT but could not tolerate long
-Ultrasound of the kidneys without obstruction
-Appreciate Renal
-SINDY now resolved
-Cheng discontinued on 05/06
- Creatinine stable
# Anemia secondary to acute illness. H&H stable
# Thrombocytosis secondary to infection-resolved
# Anasarca
# Hypoalbuminemia
# Drug abuse urine drug screen positive for Fentanyl, Benzos, Amphetamines and Methamphetamines
Decreased oxycodone from 20 to 10 and from 10 to 5 and space out Ativan from q 4 hr to bid as needed and tolerating well
prior to today:
Patient was discharged to a rehab last admission however he stayed there only for 2 days and signed himself out
# Multidrug resistant hypertension-currently blood pressure stable without medicines.
Stable
prior to today:
Patient was on Coreg, losartan, clonidine, Aldactone as outpatient.
- Patient back on clonidine, spironolactone, losartan, Coreg.
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 Transferred to [place] . Pt says he was there for 3 months and has weakness of right side and facial droop.
stable
prior to today:
s/p [employer] shunt at [place]
*confirmed cannot get MRI here given shunt
#Vitamin D deficiency-continue replacement
#Chronic back pain
#Morbid obesity with a BMI of 35- Weight loss recommended
#History of nephrolithiasis
#Possible sleep apnea-needs outpatient study as OP.
#ADHD
#Hepatic steatosis per prior imaging-outpatient follow-up
#Active smoker-cessation counseling when able
#DVT prophylaxis-Lovenox
#Full code
CW IV abx regimen per ID
Remains medically stable for DC
Await placement
Anticipated Discharge: Within 24 hours
Subjective/Interval History
-
Date of Service: June 16, 2025
Voices no new specific complaints.
Would like to decrease the dose of his pain medication to 2.5 mg oxycodone as needed now.
Objective Data
-
Vital Signs:
Vital Signs
Temp Pulse Resp BP Pulse Ox
97.8 F 63 20 144/88 97
06/16/25 07:00 06/16/25 07:00 06/16/25 07:00 06/16/25 07:00 06/16/25 07:00
I&O
06/15/25 06/16/25 06/17/25
06:59 06:59 06:59
Intake Total 240 / 240
Output Total 995 / 995 1050 / 1050
Balance -755 / -755 -1050 / -1050
Physical Exam
-
General: Comfortable
Respiratory: Non Labored Respirations; Negative Accessory Resp Muscle Use
Cardiac: Regular Rhythm and S1/S2; Negative Tachycardic
Neuro: AO x 3
--- NOTE | 2025-06-16 11:58 | W.PN.ID1 ---
Date of Service
Date of Service: June 16, 2025
Today's Communication
Continue antibiotics. Monitor right knee discomfort. May require Orthopedics reevaluation if persist.
Assessment / Plan
Sustained (04/30 - 05/09) complicated MRSA bacteremia
- Blood cultures clear as of 05/11/2025
Pulmonary septic emboli
Cavitary MRSA PNA
Right knee septic arthritis
- s/p washout 05/07. Cultures with MRSA
Right thigh & calf necrotizing soft tissue infection
Right second toe infection/gangrene/osteomyelitis; s/p amputation
Fever - resolved
Leukocytosis - stable
s/p Hypoxemic respiratory failure, self extubated 05/05
SINDY; resolved
Substance abuse (UDS with fentanyl, amphetamine, methamphetamine, benzodiazepine)
Hx CVA (thalamic bleed) with right hemiplegia
Chronic back pain
Recommendations:
Sputum cx: MRSA
Blood cx's negative 05/11 forward
05/06 R knee fluid: 41,220 WBC, 54% polys, neg crystals.
Synovial cx : MRSA
05/07/25 - s/p washout of R knee (+PUS). Cx MRSA
05/07/25 - s/p I+D right thigh and calf. Cx MRSA
05/09/25 s/p R 2nd toe amputation
Continue Daptomycin IV (d#38).
- Monitor CK while on Dapto. Currently stable.
Continue ceftaroline (d#34)
Continue abx through 06/22/2025
Follow WBC count, platelets, CPK, temperature, O2 requirements.
White count stable. Continuing to follow.
����������������������������������������������������������
Chief Complaint
-: Clinical Sepsis, Pneumonia and Bacteremia
Subjective / Review of Systems
Patient seen and examined. Reports increasing pain in his right knee today. No fevers or chills.
Review of Systems: No Fever and No Chills
Vital Signs / Physical Exam
Vital Signs
Vital Signs
Temp Pulse Resp BP Pulse Ox
97.8 F 63 20 144/88 97
06/16/25 07:00 06/16/25 07:00 06/16/25 07:00 06/16/25 07:00 06/16/25 07:00
Physical Exam
Constitutional: No Acute Distress, Comfortable, Chronically Ill and Non-toxic
Eyes: Sclera Anicteric
Cardiovascular: S1/S2; Negative S3/S4
Pulmonary: Coarse and Non Labored
Gastrointestinal: Non Tender, Non Distended and Normal Bowel Sounds
Extremities: Edema, Venous Insufficiency (Bilateral lower extremities) and Other (LE stasis dermatitis)
Musculoskeletal: Negative Joint Effusion
Wound: Other (Incisional knee wound - C/D/I and essentially healed with a few crusts. Right thigh wound with granular base. No periwound erythema. Right calf wound with granular base. No periwound erythema.)
Psychological: Calm
Objective Data
Lab Data
Lab Results
06/15/25 10:36
06/15/25 10:36
PT 20.0 Sec (11.4-14.6) H 04/30/25 19:46
INR 1.65 04/30/25 19:46
APTT Cancelled 05/04/25 14:45
Estimated Creat Clear > 125 ml/min 06/15/25 10:36
Lactic Acid 1.9 mmol/L (0.7-2.0) 05/01/25 12:18
Total Bilirubin 0.5 mg/dl (0.2-1.3) 06/15/25 10:36
AST 16 U/L (17-59) L 06/15/25 10:36
ALT < 10 U/L (0-50) 06/15/25 10:36
Alkaline Phosphatase 100 U/L (38-126) 06/15/25 10:36
Most recent labs reviewed.
Micro Results:
05/16/25 04:52 Blood Culture - Final
Blood/Venous No Growth - Final Report
05/15/25 05:39 Blood Culture - Final
Blood/Venous No Growth - Final Report
05/14/25 03:20 Blood Culture - Final
Blood/Venous No Growth - Final Report
05/13/25 09:45 Blood Culture - Final
Blood/Venous No Growth - Final Report
05/12/25 05:34 Blood Culture - Final
Blood/Venous No Growth - Final Report
05/11/25 12:40 Blood Culture - Final
Blood/Venous No Growth - Final Report
05/09/25 04:01 Blood Culture - Final
Blood/Venous Staph aureus MRSA
Gram Stain - Final
05/08/25 04:21 Blood Culture - Final
Blood/Venous Staph aureus MRSA
Gram Stain - Final
05/07/25 04:55 Blood Culture - Final
Blood/Venous Staph aureus MRSA
Gram Stain - Final
05/06/25 08:16 Blood Culture - Final
Blood/Venous Staph aureus MRSA
Gram Stain - Final
05/07/25 18:35 Wound Culture - Final
Knee - Right Staph aureus MRSA
Gram Stain - Final
05/07/25 18:35 Anaerobic Culture - Final
Knee - Right NO ANAEROBES ISOLATED
05/07/25 18:35 Wound Culture - Final
Leg - Right Staph aureus MRSA
Gram Stain - Final
05/07/25 18:35 Anaerobic Culture - Final
Leg - Right NO ANAEROBES ISOLATED
05/05/25 03:34 Blood Culture - Final
Blood/Venous No Growth - Final Report
05/03/25 04:25 Blood Culture - Final
Blood/Venous Staph aureus MRSA
Gram Stain - Final
05/02/25 03:16 Blood Culture - Final
Blood/Venous Staph aureus MRSA
Gram Stain - Final
05/04/25 03:13 Blood Culture - Final
Blood/Venous No Growth - Final Report
05/06/25 13:19 Body Fluid Culture - Final
Synovial Fluid Staph aureus MRSA
Gram Stain - Final
04/30/25 19:46 Blood Culture - Final
Blood/Venous Staph aureus MRSA
Gram Stain - Final
05/04/25 09:25 Respiratory Culture - Final
Endotracheal Staph aureus MRSA
Gram Stain - Final
05/01/25 17:45 Blood Culture - Final
Blood/Venous Staph aureus MRSA
Gram Stain - Final
04/30/25 19:46 Blood Culture - Final
Blood/Venous Staph aureus MRSA
Gram Stain - Final
05/01/25 01:32 Urine Culture - Final
Urine Yeast
05/01/25 01:17 Blood Parasites Smear - Final
Blood/Venous
04/30/25 23:02 Influenza Types A & B (GIORGIO) - Final
Nasal Swab Negative for Influenza A & B, NAAT
Negative results must be combined with clinical observations
and patient history.
Nucleic Acid Amplification test (NAAT)performed on the
[employer] platform.
Imaging:
05/27/2025 CT chest without contrast: overall decreased bilateral consolidation. Decreased or unchanged size of bilateral nodules and cavitary lesions, with decreased wall thickening of the cavitary lesions. Small bilateral pleural effusions noted,
decreased on the right and unchanged on the left. No abnormally enlarged mediastinal lymph nodes identified. No pericardial effusion. Please see full dictation for additional detail.
05/16/2025 CXR (portable): extensive heterogeneous opacities bilaterally. A 6.2 cm cavitary right lower lobe lesion again noted. No pneumothorax or pleural effusion. Mild cardiac enlargement.
05/12/2025 CXR (portable): improved aeration of the right upper lung compared to prior days imaging. Otherwise, extensive diffuse bilateral patchy, nodular and confluent airspace opacities.
05/02/25 CT RLE: Subcutaneous stranding within the soft tissues of the anterior right thigh, and [id number] anterior soft tissues. No drainable abscess is appreciated. Moderate suprapatellar joint effusion, with areas of loculation.
05/01/2025 ECHO (TTE): EF 55%. Normal biventricular size and systolic function. No significant valvular disease. No obvious vegetations.
05/01/2025 CXR (portable): bilateral interstitial and airspace disease noted which may reflect pulmonary edema or pneumonia. Small bilateral pleural effusions noted. Please see full dictation for additional detail.
05/01/2025 Abdominal x-ray. Enteric tube noted in stomach.
05/01/2025 Renal ultrasound: unremarkable renal ultrasound without hydronephrosis, contour deforming solid renal mass or echogenic shadowing foci to suggest renal calculi. Bilateral pleural effusions noted.
05/01/2025 Duplex ultrasound lower extremity: no evidence of DVT in the bilateral lower extremities
04/30/2025 X-ray right foot: soft tissue injury versus ulceration involving the second digit with soft tissue swelling. The cortex of the distal phalanx is indistinct and the possibility of osteomyelitis cannot be excluded. There is soft tissue
swelling of the first digit. No radiographic evidence to suggest osteomyelitis. Please see full dictation for additional detail.
[2025-06-16 12:02] VITALS: PULSE 68; O2SAT 97
[2025-06-16] MEDS: CUBICIN 130 MG IV (14:26)
[2025-06-16 15:00] VITALS: BP 141/77
--- NOTE | 2025-06-16 17:11 | CM ---
chart reviewed
continues on antibiotics
per ID note continue abx through 06/22/2025
PLAN: CM will continue to follow for SNF placement with available bed
[2025-06-16] MEDS: LOVENOX 40 MG SC (17:50)
[2025-06-16 20:25] VITALS: BP 148/83
[2025-06-16 23:00] VITALS: BP 136/80
[2025-06-17] MEDS: ROXICODONE 5 MG PO ×2 (02:13→06:41)
[2025-06-17 04:26] VITALS: BMI 31.8
[2025-06-17 06:00] VITALS: BMI 31.8
[2025-06-17 07:00] VITALS: BP 142/81
[2025-06-17] MEDS: SENOKOT PO ×2 (08:37→20:13)
[2025-06-17] MEDS: MIRALAX PO (08:37)
[2025-06-17] MEDS: COLACE PO ×2 (08:38→20:12)
[2025-06-17] MEDS: TEFLARO 270 MG IV ×2 (08:41→15:16)
[2025-06-17] MEDS: MYCOSTATIN ORAL SUSPENSION 5 ML PO ×4 (08:41→21:58)
[2025-06-17] MEDS: COZAAR 100 MG PO (08:42)
[2025-06-17] MEDS: COREG 25 MG PO ×2 (08:42→20:06)
[2025-06-17] MEDS: CATAPRES 0.2 MG PO ×2 (08:42→20:08)
[2025-06-17] MEDS: PROTONIX 40 MG PO (08:42)
[2025-06-17] MEDS: ALDACTONE 50 MG PO (08:42)
[2025-06-17] MEDS: DAKIN'S SOLUTION 0.125% 1/4 STRENGTH 473 ML TOPICAL (08:44)
[2025-06-17] MEDS: HYDROPHOR 1 APPLIC TOPICAL (08:44)
[2025-06-17] MEDS: DESENEX/MITRAZOL/ZEASORB 1 APPLIC TOPICAL ×2 (08:45→21:59)
--- NOTE | 2025-06-17 09:31 | W.PN.ID1 ---
Date of Service
Date of Service: June 17, 2025
Today's Communication
Continue antibiotics.
Assessment / Plan
Sustained (04/30 - 05/09) complicated MRSA bacteremia
- Blood cultures clear as of 05/11/2025
Pulmonary septic emboli
Cavitary MRSA PNA
Right knee septic arthritis
- s/p washout 05/07. Cultures with MRSA
Right thigh & calf necrotizing soft tissue infection
Right second toe infection/gangrene/osteomyelitis; s/p amputation
Fever - resolved
Leukocytosis - stable
s/p Hypoxemic respiratory failure, self extubated 05/05
SINDY; resolved
Substance abuse (UDS with fentanyl, amphetamine, methamphetamine, benzodiazepine)
Hx CVA (thalamic bleed) with right hemiplegia
Chronic back pain
Recommendations:
Sputum cx: MRSA
Blood cx's negative 05/11 forward
05/06 R knee fluid: 41,220 WBC, 54% polys, neg crystals.
Synovial cx : MRSA
05/07/25 - s/p washout of R knee (+PUS). Cx MRSA
05/07/25 - s/p I+D right thigh and calf. Cx MRSA
05/09/25 s/p R 2nd toe amputation
Continue Daptomycin IV (d#39).
- Monitor CK while on Dapto. Currently stable.
Continue ceftaroline (d#35)
Continuing abx through 06/22/2025
Follow WBC count, platelets, CPK, temperature, O2 requirements.
White count stable. Continuing to follow.
If right knee discomfort persists, may consider re- evaluation by Orthopedics.
����������������������������������������������������������
Chief Complaint
-: Clinical Sepsis, Pneumonia and Bacteremia
Subjective / Review of Systems
Patient seen and examined. Reports some ongoing right knee discomfort. No shortness of breath. Still with cough and some sputum production. No hemoptysis.
Review of Systems: No Fever and No Chills
Vital Signs / Physical Exam
Vital Signs
Vital Signs
Temp Pulse Resp BP Pulse Ox
97.5 F 66 20 142/81 95
06/17/25 07:00 06/17/25 07:00 06/17/25 07:00 06/17/25 07:00 06/17/25 07:00
Physical Exam
Constitutional: No Acute Distress, Comfortable, Chronically Ill and Non-toxic
Eyes: Sclera Anicteric
Cardiovascular: S1/S2; Negative S3/S4
Pulmonary: Coarse and Non Labored
Gastrointestinal: Non Tender, Non Distended and Normal Bowel Sounds
Extremities: Edema, Venous Insufficiency (Bilateral lower extremities) and Other (LE stasis dermatitis)
Musculoskeletal: Joint Swelling and Other (Mild right knee warmth.); Negative Joint Effusion
Wound: Other (Incisional knee wound - C/D/I and essentially healed with a few crusts. Right thigh wound with granular base. No periwound erythema. Right calf wound with granular base. No periwound erythema.)
Psychological: Calm
Objective Data
Lab Data
Lab Results
06/15/25 10:36
06/15/25 10:36
PT 20.0 Sec (11.4-14.6) H 04/30/25 19:46
INR 1.65 04/30/25 19:46
APTT Cancelled 05/04/25 14:45
Estimated Creat Clear > 125 ml/min 06/15/25 10:36
Lactic Acid 1.9 mmol/L (0.7-2.0) 05/01/25 12:18
Total Bilirubin 0.5 mg/dl (0.2-1.3) 06/15/25 10:36
AST 16 U/L (17-59) L 06/15/25 10:36
ALT < 10 U/L (0-50) 06/15/25 10:36
Alkaline Phosphatase 100 U/L (38-126) 06/15/25 10:36
Most recent labs reviewed.
Micro Results:
05/16/25 04:52 Blood Culture - Final
Blood/Venous No Growth - Final Report
05/15/25 05:39 Blood Culture - Final
Blood/Venous No Growth - Final Report
05/14/25 03:20 Blood Culture - Final
Blood/Venous No Growth - Final Report
05/13/25 09:45 Blood Culture - Final
Blood/Venous No Growth - Final Report
05/12/25 05:34 Blood Culture - Final
Blood/Venous No Growth - Final Report
05/11/25 12:40 Blood Culture - Final
Blood/Venous No Growth - Final Report
05/09/25 04:01 Blood Culture - Final
Blood/Venous Staph aureus MRSA
Gram Stain - Final
05/08/25 04:21 Blood Culture - Final
Blood/Venous Staph aureus MRSA
Gram Stain - Final
05/07/25 04:55 Blood Culture - Final
Blood/Venous Staph aureus MRSA
Gram Stain - Final
05/06/25 08:16 Blood Culture - Final
Blood/Venous Staph aureus MRSA
Gram Stain - Final
05/07/25 18:35 Wound Culture - Final
Knee - Right Staph aureus MRSA
Gram Stain - Final
05/07/25 18:35 Anaerobic Culture - Final
Knee - Right NO ANAEROBES ISOLATED
05/07/25 18:35 Wound Culture - Final
Leg - Right Staph aureus MRSA
Gram Stain - Final
05/07/25 18:35 Anaerobic Culture - Final
Leg - Right NO ANAEROBES ISOLATED
05/05/25 03:34 Blood Culture - Final
Blood/Venous No Growth - Final Report
05/03/25 04:25 Blood Culture - Final
Blood/Venous Staph aureus MRSA
Gram Stain - Final
05/02/25 03:16 Blood Culture - Final
Blood/Venous Staph aureus MRSA
Gram Stain - Final
05/04/25 03:13 Blood Culture - Final
Blood/Venous No Growth - Final Report
05/06/25 13:19 Body Fluid Culture - Final
Synovial Fluid Staph aureus MRSA
Gram Stain - Final
04/30/25 19:46 Blood Culture - Final
Blood/Venous Staph aureus MRSA
Gram Stain - Final
05/04/25 09:25 Respiratory Culture - Final
Endotracheal Staph aureus MRSA
Gram Stain - Final
05/01/25 17:45 Blood Culture - Final
Blood/Venous Staph aureus MRSA
Gram Stain - Final
04/30/25 19:46 Blood Culture - Final
Blood/Venous Staph aureus MRSA
Gram Stain - Final
05/01/25 01:32 Urine Culture - Final
Urine Yeast
05/01/25 01:17 Blood Parasites Smear - Final
Blood/Venous
04/30/25 23:02 Influenza Types A & B (GIORGIO) - Final
Nasal Swab Negative for Influenza A & B, NAAT
Negative results must be combined with clinical observations
and patient history.
Nucleic Acid Amplification test (NAAT)performed on the
[employer]bridge platform.
Imaging:
05/27/2025 CT chest without contrast: overall decreased bilateral consolidation. Decreased or unchanged size of bilateral nodules and cavitary lesions, with decreased wall thickening of the cavitary lesions. Small bilateral pleural effusions noted,
decreased on the right and unchanged on the left. No abnormally enlarged mediastinal lymph nodes identified. No pericardial effusion. Please see full dictation for additional detail.
05/16/2025 CXR (portable): extensive heterogeneous opacities bilaterally. A 6.2 cm cavitary right lower lobe lesion again noted. No pneumothorax or pleural effusion. Mild cardiac enlargement.
05/12/2025 CXR (portable): improved aeration of the right upper lung compared to prior days imaging. Otherwise, extensive diffuse bilateral patchy, nodular and confluent airspace opacities.
05/02/25 CT RLE: Subcutaneous stranding within the soft tissues of the anterior right thigh, and [id number] anterior soft tissues. No drainable abscess is appreciated. Moderate suprapatellar joint effusion, with areas of loculation.
05/01/2025 ECHO (TTE): EF 55%. Normal biventricular size and systolic function. No significant valvular disease. No obvious vegetations.
05/01/2025 CXR (portable): bilateral interstitial and airspace disease noted which may reflect pulmonary edema or pneumonia. Small bilateral pleural effusions noted. Please see full dictation for additional detail.
05/01/2025 Abdominal x-ray. Enteric tube noted in stomach.
05/01/2025 Renal ultrasound: unremarkable renal ultrasound without hydronephrosis, contour deforming solid renal mass or echogenic shadowing foci to suggest renal calculi. Bilateral pleural effusions noted.
05/01/2025 Duplex ultrasound lower extremity: no evidence of DVT in the bilateral lower extremities
04/30/2025 X-ray right foot: soft tissue injury versus ulceration involving the second digit with soft tissue swelling. The cortex of the distal phalanx is indistinct and the possibility of osteomyelitis cannot be excluded. There is soft tissue
swelling of the first digit. No radiographic evidence to suggest osteomyelitis. Please see full dictation for additional detail.
--- NOTE | 2025-06-17 11:29 | W.PN.HOSP.TC ---
Today's Communication/Plan
-
Ongoing dispo efforts
Assessment / Plan
Assessment / Plan
Mr. Patrice Mera is a 50 yo man with hx polysubstance abuse, prior CVA (thalamic bleed; right hemiplegia), essential HTN, admitted 04/30 with septic shock 2/2 MRSA bacteremia, SINDY with anion gap metabolic acidosis and hypoxemic respiratory failure.
He is found to have septic joint right knee and development of necrotizing fasciitis.
#Acute respiratory failure, VDRF
-remains On 1 lt oxygen currently. Denies SOB
-CT scan of the chest 05/27 shows stability
- Labs repeated 06/15 unremarkable; normal CPK
prior to today:
-patient was intubated on admission for multiple reasons in setting of septic shock, pneumonia, septic emboli
-CTA without PE
-s/p self extubation on 05/05
-CT Chest -noted with bilateral cavitary nodules -repeat chest CT next week to follow on it
-Methylprednisolone 40 mg IV daily started on 05/11/25 per pulmonary-getting switched to oral prednisone for 5 days-last day 05/20.
#MRSA Bacteremia
Surveillance blood cultures are negative
Continue antibiotics per ID-on ceftaroline and daptomycin
CMP and CPK are ok
prior to today:
Septic Shock - patient was on Levo, Vaso, Epi, Giapreza; remains off pressors
Septic Arthritis Right Knee
Necrotizing Fasciitis right medial thigh and calf
- JEAN 05/06 without e/o vegetation
- Right knee joint aspirate positive for MRSA 05/06
- Exam 05/07 with new concern for necrotizing fasciitis right medial thigh and calf Daily wound care and packing-of the 2 wounds
- Appreciate general surgery and ortho, patient is s/p I&D of necrotizing soft tissue infection and washout right knee on 05/07/25
- 05/07 antibiotics changed to IV Daptomycin Teflaro started on 05/11/2025
- Last positive Blood cultures from 05/09, negative since 05/11/25.
-Blood pressure stable. White count improving -follow for now
#Right second toe infection Gangrene
- stable
prior to today:
-Appreciate ID and Podiatry
-Antibiotics as above
-Arterial US with multiphasic waveforms
-Wound care Betadine soaked gauze to toe - change every day
-S/P Right 2nd toe amputation secondary to gangrenous changes with exposed bone 05/09/25
# Acute kidney injury - ATN in setting of septic shock
Cr stable
prior to today:
Metabolic Acidosis Resolved
-Patient briefly required CRRT but could not tolerate long
-Ultrasound of the kidneys without obstruction
-Appreciate Renal
-SINDY now resolved
-Cheng discontinued on 05/06
- Creatinine stable
# Anemia secondary to acute illness. H&H stable
# Thrombocytosis secondary to infection-resolved
# Anasarca
# Hypoalbuminemia
# Drug abuse urine drug screen positive for Fentanyl, Benzos, Amphetamines and Methamphetamines
Decreased oxycodone from 20 to 10 and from 10 to 5 and space out Ativan from q 4 hr to bid as needed and tolerating well
prior to today:
Patient was discharged to a rehab last admission however he stayed there only for 2 days and signed himself out
# Multidrug resistant hypertension-currently blood pressure stable without medicines.
Stable
prior to today:
Patient was on Coreg, losartan, clonidine, Aldactone as outpatient.
- Patient back on clonidine, spironolactone, losartan, Coreg.
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 Transferred to [facility] . Pt says he was there for 3 months and has weakness of right side and facial droop.
stable
prior to today:
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
*confirmed cannot get MRI here given shunt
#Vitamin D deficiency-continue replacement
#Chronic back pain
#Morbid obesity with a BMI of 35- Weight loss recommended
#History of nephrolithiasis
#Possible sleep apnea-needs outpatient study as OP.
#ADHD
#Hepatic steatosis per prior imaging-outpatient follow-up
#Active smoker-cessation counseling when able
#DVT prophylaxis-Lovenox
#Full code
No new issues since yesterday
CW IV abx regimen per ID
Remains medically stable for DC
Await placement
Anticipated Discharge: Within 24 hours
Subjective/Interval History
-
Date of Service: June 17, 2025
No overnight events
Not SOB
No N/V
No fever or chills
Objective Data
-
Vital Signs:
Vital Signs
Temp Pulse Resp BP Pulse Ox
97.5 F 66 20 142/81 95
06/17/25 07:00 06/17/25 07:00 06/17/25 07:00 06/17/25 07:00 06/17/25 07:00
I&O
06/16/25 06/17/25 06/18/25
06:59 06:59 06:59
Intake Total 2310 / 2310 270 / 270
Output Total 1050 / 1050 900 / 900
Balance -1050 / -1050 1410 / 1410 270 / 270
Physical Exam
-
General: Comfortable
Respiratory: Non Labored Respirations; Negative Accessory Resp Muscle Use
Cardiac: Regular Rhythm and S1/S2; Negative Tachycardic
Neuro: AO x 3
[2025-06-17] MEDS: ROXICODONE 2.5 MG PO ×2 (13:14→20:07)
[2025-06-17] MEDS: CUBICIN 130 MG IV (14:07)
[2025-06-17 15:00] VITALS: BP 152/73
[2025-06-17] MEDS: LOVENOX 40 MG SC (17:58)
[2025-06-17 23:00] VITALS: BP 143/83
[2025-06-18] MEDS: TEFLARO 270 MG IV ×4 (00:02→23:58)
[2025-06-18] MEDS: ROXICODONE 2.5 MG PO ×5 (01:30→22:31)
[2025-06-18 03:44] VITALS: BMI 31.7
[2025-06-18 06:00] VITALS: BMI 31.7
--- NOTE | 2025-06-18 06:02 | PTCARENOTE ---
pt refusing to be turned or moved, pt yelled loudly 'no I'm fine, I am tired, leave me alone'. inst pt on need to change position d/t risk of pressure ulcers, pt still refuses. inst pt rt leg dressing was pulling off, pt only allowed me to place
another dsg over the current dressing. Multiple attempts made through out the night to change position but pt continued to refuse. see worklist for turning documentation
[2025-06-18 07:30] VITALS: BP 146/89
[2025-06-18] MEDS: CATAPRES 0.2 MG PO ×2 (07:59→20:05)
[2025-06-18] MEDS: ALDACTONE 50 MG PO (07:59)
[2025-06-18] MEDS: COZAAR 100 MG PO (07:59)
[2025-06-18] MEDS: PROTONIX 40 MG PO (07:59)
[2025-06-18] MEDS: MYCOSTATIN ORAL SUSPENSION 5 ML PO ×3 (07:59→17:30)
[2025-06-18] MEDS: COREG 25 MG PO ×2 (08:00→20:06)
[2025-06-18] MEDS: SENOKOT PO ×2 (08:00→20:06)
[2025-06-18] MEDS: MIRALAX PO (08:01)
[2025-06-18] MEDS: COLACE PO ×2 (08:01→20:05)
[2025-06-18] MEDS: DAKIN'S SOLUTION 0.125% 1/4 STRENGTH 473 ML TOPICAL (08:02)
[2025-06-18] MEDS: HYDROPHOR 1 APPLIC TOPICAL (08:03)
[2025-06-18] MEDS: DESENEX/MITRAZOL/ZEASORB 1 APPLIC TOPICAL ×2 (08:03→20:06)
--- NOTE | 2025-06-18 09:27 | CM ---
Addendum entered by Regina Hill RN 06/18/25 10:40:
call received from Stephanie Cedeño,Service Coor,for patient. She stated she that she recently took this case over from another Service Coor. She stated that he has been on the waiver program for approximately a year, however has not been cooperative
with following up with them or returning phone calls. She said because of this they are now in the process of terminating him from the Home and Community Based Services Program. She also stated that she has been told he is homeless. I made her aware
that on admission he stated that he lived with his and children and sometimes stayed with his Mother. I stated that his IV antibiotics are due to end on 06/22, and that we would be looking for a Snf Facility for wound care and rehab
to start on 06/23. I stated that he most likely will need home based services once he is discharged from the SNF or if he refuses to go to a SNF. I made her aware of his room number if she would like to come in and see the patient. She stated she
would need to speak to her Meter Tester as the termination from the Home and Community Based Services Program as been started. I asked her to call me back with the status after she speaks with her Meter Tester. Update to .
Original Note:
VM received from Spring Marques, Triage Jewelry Manager ([phone]) ,for [facility] returning my call from last week. She stated she could try to assist with SNF placement, but needed to know what obstacles we were facing. She also provided the
name of his Service Coor., Stephanie Cedeño ([phone]), who had been following this patient as an outpt. VM's left for both of them asking them to return my call. Update to
--- NOTE | 2025-06-18 11:03 | W.PN.ID1 ---
Date of Service
Date of Service: June 18, 2025
Today's Communication
Continue antibiotics.
Assessment / Plan
Sustained (04/30 - 05/09) complicated MRSA bacteremia
- Blood cultures clear as of 05/11/2025
Pulmonary septic emboli
Cavitary MRSA PNA
Right knee septic arthritis
- s/p washout 05/07. Cultures with MRSA
Right thigh & calf necrotizing soft tissue infection
Right second toe infection/gangrene/osteomyelitis; s/p amputation
Fever - resolved
Leukocytosis - stable
s/p Hypoxemic respiratory failure, self extubated 05/05
SINDY; resolved
Substance abuse (UDS with fentanyl, amphetamine, methamphetamine, benzodiazepine)
Hx CVA (thalamic bleed) with right hemiplegia
Chronic back pain
Recommendations:
Sputum cx: MRSA
Blood cx's negative 05/11 forward
05/06 R knee fluid: 41,220 WBC, 54% polys, neg crystals.
Synovial cx : MRSA
05/07/25 - s/p washout of R knee (+PUS). Cx MRSA
05/07/25 - s/p I+D right thigh and calf. Cx MRSA
05/09/25 s/p R 2nd toe amputation
Continue Daptomycin IV (d#40).
- Monitor CK while on Dapto. Currently stable.
Continue ceftaroline (d#36)
Continuing abx through 06/22/2025
Follow WBC count, platelets, CPK, temperature, O2 requirements.
White count stable. Continuing to follow.
Monitor right knee discomfort.
����������������������������������������������������������
Chief Complaint
-: Clinical Sepsis, Pneumonia and Bacteremia
Subjective / Review of Systems
Patient seen and examined. No significant changes overnight. Still with some right knee pain. No fevers or chills. Notes ongoing, but stable cough.
Vital Signs / Physical Exam
Vital Signs
Vital Signs
Temp Pulse Resp BP Pulse Ox
97.9 F 67 18 146/89 95
06/18/25 07:30 06/18/25 08:00 06/18/25 07:30 06/18/25 08:00 06/18/25 07:30
Physical Exam
Constitutional: No Acute Distress, Comfortable, Chronically Ill and Non-toxic
Eyes: Sclera Anicteric
Cardiovascular: S1/S2; Negative S3/S4
Pulmonary: Coarse and Non Labored
Gastrointestinal: Non Tender, Non Distended and Normal Bowel Sounds
Extremities: Edema, Venous Insufficiency (Bilateral lower extremities) and Other (LE stasis dermatitis)
Musculoskeletal: Joint Swelling and Other (Mild right knee warmth.); Negative Joint Effusion
Wound: Other (Incisional knee wound - C/D/I and essentially healed with a few crusts. Right thigh wound with granular base. No periwound erythema. Right calf wound with granular base. No periwound erythema.)
Psychological: Calm
Objective Data
Lab Data
Lab Results
06/15/25 10:36
06/15/25 10:36
PT 20.0 Sec (11.4-14.6) H 04/30/25 19:46
INR 1.65 04/30/25 19:46
APTT Cancelled 05/04/25 14:45
Estimated Creat Clear > 125 ml/min 06/15/25 10:36
Lactic Acid 1.9 mmol/L (0.7-2.0) 05/01/25 12:18
Total Bilirubin 0.5 mg/dl (0.2-1.3) 06/15/25 10:36
AST 16 U/L (17-59) L 06/15/25 10:36
ALT < 10 U/L (0-50) 06/15/25 10:36
Alkaline Phosphatase 100 U/L (38-126) 06/15/25 10:36
Most recent labs reviewed.
Micro Results:
05/16/25 04:52 Blood Culture - Final
Blood/Venous No Growth - Final Report
05/15/25 05:39 Blood Culture - Final
Blood/Venous No Growth - Final Report
05/14/25 03:20 Blood Culture - Final
Blood/Venous No Growth - Final Report
05/13/25 09:45 Blood Culture - Final
Blood/Venous No Growth - Final Report
05/12/25 05:34 Blood Culture - Final
Blood/Venous No Growth - Final Report
05/11/25 12:40 Blood Culture - Final
Blood/Venous No Growth - Final Report
05/09/25 04:01 Blood Culture - Final
Blood/Venous Staph aureus MRSA
Gram Stain - Final
05/08/25 04:21 Blood Culture - Final
Blood/Venous Staph aureus MRSA
Gram Stain - Final
05/07/25 04:55 Blood Culture - Final
Blood/Venous Staph aureus MRSA
Gram Stain - Final
05/06/25 08:16 Blood Culture - Final
Blood/Venous Staph aureus MRSA
Gram Stain - Final
05/07/25 18:35 Wound Culture - Final
Knee - Right Staph aureus MRSA
Gram Stain - Final
05/07/25 18:35 Anaerobic Culture - Final
Knee - Right NO ANAEROBES ISOLATED
05/07/25 18:35 Wound Culture - Final
Leg - Right Staph aureus MRSA
Gram Stain - Final
05/07/25 18:35 Anaerobic Culture - Final
Leg - Right NO ANAEROBES ISOLATED
05/05/25 03:34 Blood Culture - Final
Blood/Venous No Growth - Final Report
05/03/25 04:25 Blood Culture - Final
Blood/Venous Staph aureus MRSA
Gram Stain - Final
05/02/25 03:16 Blood Culture - Final
Blood/Venous Staph aureus MRSA
Gram Stain - Final
05/04/25 03:13 Blood Culture - Final
Blood/Venous No Growth - Final Report
05/06/25 13:19 Body Fluid Culture - Final
Synovial Fluid Staph aureus MRSA
Gram Stain - Final
04/30/25 19:46 Blood Culture - Final
Blood/Venous Staph aureus MRSA
Gram Stain - Final
05/04/25 09:25 Respiratory Culture - Final
Endotracheal Staph aureus MRSA
Gram Stain - Final
05/01/25 17:45 Blood Culture - Final
Blood/Venous Staph aureus MRSA
Gram Stain - Final
04/30/25 19:46 Blood Culture - Final
Blood/Venous Staph aureus MRSA
Gram Stain - Final
05/01/25 01:32 Urine Culture - Final
Urine Yeast
05/01/25 01:17 Blood Parasites Smear - Final
Blood/Venous
04/30/25 23:02 Influenza Types A & B (GIORGIO) - Final
Nasal Swab Negative for Influenza A & B, NAAT
Negative results must be combined with clinical observations
and patient history.
Nucleic Acid Amplification test (NAAT)performed on the
[employer] platform.
Imaging:
05/27/2025 CT chest without contrast: overall decreased bilateral consolidation. Decreased or unchanged size of bilateral nodules and cavitary lesions, with decreased wall thickening of the cavitary lesions. Small bilateral pleural effusions noted,
decreased on the right and unchanged on the left. No abnormally enlarged mediastinal lymph nodes identified. No pericardial effusion. Please see full dictation for additional detail.
05/16/2025 CXR (portable): extensive heterogeneous opacities bilaterally. A 6.2 cm cavitary right lower lobe lesion again noted. No pneumothorax or pleural effusion. Mild cardiac enlargement.
05/12/2025 CXR (portable): improved aeration of the right upper lung compared to prior days imaging. Otherwise, extensive diffuse bilateral patchy, nodular and confluent airspace opacities.
05/02/25 CT RLE: Subcutaneous stranding within the soft tissues of the anterior right thigh, and [id number] anterior soft tissues. No drainable abscess is appreciated. Moderate suprapatellar joint effusion, with areas of loculation.
05/01/2025 ECHO (TTE): EF 55%. Normal biventricular size and systolic function. No significant valvular disease. No obvious vegetations.
05/01/2025 CXR (portable): bilateral interstitial and airspace disease noted which may reflect pulmonary edema or pneumonia. Small bilateral pleural effusions noted. Please see full dictation for additional detail.
05/01/2025 Abdominal x-ray. Enteric tube noted in stomach.
05/01/2025 Renal ultrasound: unremarkable renal ultrasound without hydronephrosis, contour deforming solid renal mass or echogenic shadowing foci to suggest renal calculi. Bilateral pleural effusions noted.
05/01/2025 Duplex ultrasound lower extremity: no evidence of DVT in the bilateral lower extremities
04/30/2025 X-ray right foot: soft tissue injury versus ulceration involving the second digit with soft tissue swelling. The cortex of the distal phalanx is indistinct and the possibility of osteomyelitis cannot be excluded. There is soft tissue
swelling of the first digit. No radiographic evidence to suggest osteomyelitis. Please see full dictation for additional detail.
--- NOTE | 2025-06-18 13:02 | W.PN.HOSP.TC ---
Today's Communication/Plan
-
Ongoing dispo efforts
Assessment / Plan
Assessment / Plan
Mr. Patrice Mera is a 50 yo man with hx polysubstance abuse, prior CVA (thalamic bleed; right hemiplegia), essential HTN, admitted 04/30 with septic shock 2/2 MRSA bacteremia, SINDY with anion gap metabolic acidosis and hypoxemic respiratory failure.
He is found to have septic joint right knee and development of necrotizing fasciitis.
#Acute respiratory failure, VDRF
-remains On 1 lt oxygen currently. Denies SOB
-CT scan of the chest 05/27 shows stability
- Labs repeated 06/15 unremarkable; normal CPK
prior to today:
-patient was intubated on admission for multiple reasons in setting of septic shock, pneumonia, septic emboli
-CTA without PE
-s/p self extubation on 05/05
-CT Chest -noted with bilateral cavitary nodules -repeat chest CT next week to follow on it
-Methylprednisolone 40 mg IV daily started on 05/11/25 per pulmonary-getting switched to oral prednisone for 5 days-last day 05/20.
#MRSA Bacteremia
Surveillance blood cultures are negative
Continue antibiotics per ID-on ceftaroline and daptomycin
CMP and CPK are ok
prior to today:
Septic Shock - patient was on Levo, Vaso, Epi, Giapreza; remains off pressors
Septic Arthritis Right Knee
Necrotizing Fasciitis right medial thigh and calf
- JEAN 05/06 without e/o vegetation
- Right knee joint aspirate positive for MRSA 05/06
- Exam 05/07 with new concern for necrotizing fasciitis right medial thigh and calf Daily wound care and packing-of the 2 wounds
- Appreciate general surgery and ortho, patient is s/p I&D of necrotizing soft tissue infection and washout right knee on 05/07/25
- 05/07 antibiotics changed to IV Daptomycin Teflaro started on 05/11/2025
- Last positive Blood cultures from 05/09, negative since 05/11/25.
-Blood pressure stable. White count improving -follow for now
#Right second toe infection Gangrene
- stable
prior to today:
-Appreciate ID and Podiatry
-Antibiotics as above
-Arterial US with multiphasic waveforms
-Wound care Betadine soaked gauze to toe - change every day
-S/P Right 2nd toe amputation secondary to gangrenous changes with exposed bone 05/09/25
# Acute kidney injury - ATN in setting of septic shock
Cr stable
prior to today:
Metabolic Acidosis Resolved
-Patient briefly required CRRT but could not tolerate long
-Ultrasound of the kidneys without obstruction
-Appreciate Renal
-SINDY now resolved
-Cheng discontinued on 05/06
- Creatinine stable
# Anemia secondary to acute illness. H&H stable
# Thrombocytosis secondary to infection-resolved
# Anasarca
# Hypoalbuminemia
# Drug abuse urine drug screen positive for Fentanyl, Benzos, Amphetamines and Methamphetamines
Decreased oxycodone from 20 to 10 and from 10 to 5 and space out Ativan from q 4 hr to bid as needed and tolerating well
prior to today:
Patient was discharged to a rehab last admission however he stayed there only for 2 days and signed himself out
# Multidrug resistant hypertension-currently blood pressure stable without medicines.
Stable
prior to today:
Patient was on Coreg, losartan, clonidine, Aldactone as outpatient.
- Patient back on clonidine, spironolactone, losartan, Coreg.
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 Transferred to [place] . Pt says he was there for 3 months and has weakness of right side and facial droop.
stable
prior to today:
s/p TUR[facility] IN shunt at [place]
*confirmed cannot get MRI here given shunt
#Vitamin D deficiency-continue replacement
#Chronic back pain
#Morbid obesity with a BMI of 35- Weight loss recommended
#History of nephrolithiasis
#Possible sleep apnea-needs outpatient study as OP.
#ADHD
#Hepatic steatosis per prior imaging-outpatient follow-up
#Active smoker-cessation counseling when able
#DVT prophylaxis-Lovenox
#Full code
CW IV abx regimen per ID
Remains medically stable for DC
DW CM today -ongoing dispo efforts
Anticipated Discharge: > 48 hours
Subjective/Interval History
-
Date of Service: June 18, 2025
No overnight events
Voices no specific complaints
Eating ok
Denies SOB ,fevers
Objective Data
-
Vital Signs:
Vital Signs
Temp Pulse Resp BP Pulse Ox
97.9 F 67 18 146/89 95
06/18/25 07:30 06/18/25 08:00 06/18/25 07:30 06/18/25 08:00 06/18/25 07:30
I&O
06/17/25 06/18/25 06/19/25
06:59 06:59 06:59
Intake Total 2310 / 2310 1150 / 1150 250 / 250
Output Total 900 / 900 400 / 400 325 / 325
Balance 1410 / 1410 750 / 750 -75 / -75
Physical Exam
-
General: Comfortable
Respiratory: Non Labored Respirations; Negative Accessory Resp Muscle Use
Neuro: AO x 3
Psych: Calm; Negative Confused
[2025-06-18 13:35] VITALS: BP 146/88; BP 152/85; PULSE 72; PULSE 73; O2SAT 92
[2025-06-18] MEDS: CUBICIN 130 MG IV (13:52)
--- NOTE | 2025-06-18 14:59 | CM ---
patient seen at bedside
CM director Regina Hill has been in contact with [facility]/room service associate Stephanie Cedeño
PT rec SNF-patient agreeable to SNF-states 'does not want [facility]'. He states he will be going to his daughter's home in [place] after rehab.
will send updates via [facility] [facility] when able (it is down currently)
CM will need to obtain authorization
PLAN: SNF, pending acceptance/bed availability
--- NOTE | 2025-06-18 15:24 | WOUNDNOTE ---
Dressings changed to Right thigh/leg by CHAYA George, report wounds are bright beefy red and looks good. She also reports that patient's Sacrum is red but blanchable. Heels are checked by this RN, intact, bilateral heels are elevated with pillow. CHAYA George
updated regarding patient's heels.
[2025-06-18 15:35] VITALS: BP 143/80
[2025-06-18] MEDS: LOVENOX 40 MG SC (17:30)
[2025-06-18 20:00] VITALS: BP 154/98
[2025-06-18] MEDS: MYCOSTATIN ORAL SUSPENSION PO (22:31)
[2025-06-18 23:39] VITALS: BP 136/72
[2025-06-19] MEDS: ROXICODONE 2.5 MG PO (02:33)
[2025-06-19 06:00] VITALS: BMI 32.4
[2025-06-19] MEDS: PROTONIX 40 MG PO (07:18)
[2025-06-19] MEDS: COREG 25 MG PO ×2 (07:18→20:26)
[2025-06-19] MEDS: ALDACTONE 50 MG PO (07:18)
[2025-06-19] MEDS: MYCOSTATIN ORAL SUSPENSION 5 ML PO ×3 (07:18→17:13)
[2025-06-19] MEDS: CATAPRES 0.2 MG PO ×2 (07:18→20:26)
[2025-06-19] MEDS: COZAAR 100 MG PO (07:18)
[2025-06-19] MEDS: COLACE PO ×2 (07:18→20:26)
[2025-06-19] MEDS: MIRALAX PO (07:23)
[2025-06-19] MEDS: SENOKOT PO ×2 (07:23→20:27)
[2025-06-19] MEDS: DAKIN'S SOLUTION 0.125% 1/4 STRENGTH 473 ML TOPICAL (07:25)
[2025-06-19] MEDS: DESENEX/MITRAZOL/ZEASORB 1 APPLIC TOPICAL ×2 (07:26→20:27)
[2025-06-19] MEDS: HYDROPHOR 1 APPLIC TOPICAL (07:26)
[2025-06-19 07:34] VITALS: BP 175/88
[2025-06-19] MEDS: TYLENOL ORAL SOLUTION 650 MG PO ×3 (07:58→20:27)
[2025-06-19] MEDS: TEFLARO 270 MG IV ×2 (07:58→16:08)
--- NOTE | 2025-06-19 10:18 | W.PN.ID1 ---
Date of Service
Date of Service: June 19, 2025
Today's Communication
Continue antibiotics.
Assessment / Plan
Sustained (04/30 - 05/09) complicated MRSA bacteremia
- Blood cultures clear as of 05/11/2025
Pulmonary septic emboli
Cavitary MRSA PNA
Right knee septic arthritis
- s/p washout 05/07. Cultures with MRSA
Right thigh & calf necrotizing soft tissue infection
Right second toe infection/gangrene/osteomyelitis; s/p amputation
Fever - resolved
Leukocytosis - stable
s/p Hypoxemic respiratory failure, self extubated 05/05
SINDY; resolved
Substance abuse (UDS with fentanyl, amphetamine, methamphetamine, benzodiazepine)
Hx CVA (thalamic bleed) with right hemiplegia
Chronic back pain
Recommendations:
Sputum cx: MRSA
Blood cx's negative 05/11 forward
05/06 R knee fluid: 41,220 WBC, 54% polys, neg crystals.
Synovial cx : MRSA
05/07/25 - s/p washout of R knee (+PUS). Cx MRSA
05/07/25 - s/p I+D right thigh and calf. Cx MRSA
05/09/25 s/p R 2nd toe amputation
Continue Daptomycin IV (d#40).
- Monitor CK while on Dapto. Currently stable.
Continue ceftaroline (d#36)
Continuing abx through 06/22/2025
Follow WBC count, platelets, CPK, temperature, O2 requirements.
White count stable. Continuing to follow.
Monitor right knee discomfort. Patient notes significant improvement today.
����������������������������������������������������������
Chief Complaint
-: Clinical Sepsis, Pneumonia and Bacteremia
Subjective / Review of Systems
Patient seen and examined. Reports feeling improved today. States that right knee pain has resolved.
Review of Systems: No Fever and No Chills
Vital Signs / Physical Exam
Vital Signs
Vital Signs
Temp Pulse Resp BP Pulse Ox
98.6 F 73 16 175/88 93
06/19/25 07:34 06/19/25 07:34 06/19/25 07:34 06/19/25 07:34 06/19/25 07:34
Physical Exam
Constitutional: No Acute Distress, Comfortable, Chronically Ill and Non-toxic
Cardiovascular: S1/S2; Negative S3/S4
Pulmonary: Non Labored
Gastrointestinal: Non Tender, Non Distended and Normal Bowel Sounds
Extremities: Edema, Venous Insufficiency (Bilateral lower extremities) and Other (LE stasis dermatitis)
Musculoskeletal: Joint Swelling and Other (Mild right knee warmth.); Negative Joint Effusion
Wound: Other (Incisional knee wound - C/D/I and essentially healed with a few crusts. Right thigh wound with granular base. No periwound erythema. Right calf wound with granular base. No periwound erythema.)
Psychological: Calm
Objective Data
Lab Data
Lab Results
06/15/25 10:36
06/15/25 10:36
PT 20.0 Sec (11.4-14.6) H 04/30/25 19:46
INR 1.65 04/30/25 19:46
APTT Cancelled 05/04/25 14:45
Estimated Creat Clear > 125 ml/min 06/15/25 10:36
Lactic Acid 1.9 mmol/L (0.7-2.0) 05/01/25 12:18
Total Bilirubin 0.5 mg/dl (0.2-1.3) 06/15/25 10:36
AST 16 U/L (17-59) L 06/15/25 10:36
ALT < 10 U/L (0-50) 06/15/25 10:36
Alkaline Phosphatase 100 U/L (38-126) 06/15/25 10:36
Most recent labs reviewed.
Micro Results:
05/16/25 04:52 Blood Culture - Final
Blood/Venous No Growth - Final Report
05/15/25 05:39 Blood Culture - Final
Blood/Venous No Growth - Final Report
05/14/25 03:20 Blood Culture - Final
Blood/Venous No Growth - Final Report
05/13/25 09:45 Blood Culture - Final
Blood/Venous No Growth - Final Report
05/12/25 05:34 Blood Culture - Final
Blood/Venous No Growth - Final Report
05/11/25 12:40 Blood Culture - Final
Blood/Venous No Growth - Final Report
05/09/25 04:01 Blood Culture - Final
Blood/Venous Staph aureus MRSA
Gram Stain - Final
05/08/25 04:21 Blood Culture - Final
Blood/Venous Staph aureus MRSA
Gram Stain - Final
05/07/25 04:55 Blood Culture - Final
Blood/Venous Staph aureus MRSA
Gram Stain - Final
05/06/25 08:16 Blood Culture - Final
Blood/Venous Staph aureus MRSA
Gram Stain - Final
05/07/25 18:35 Wound Culture - Final
Knee - Right Staph aureus MRSA
Gram Stain - Final
05/07/25 18:35 Anaerobic Culture - Final
Knee - Right NO ANAEROBES ISOLATED
05/07/25 18:35 Wound Culture - Final
Leg - Right Staph aureus MRSA
Gram Stain - Final
05/07/25 18:35 Anaerobic Culture - Final
Leg - Right NO ANAEROBES ISOLATED
05/05/25 03:34 Blood Culture - Final
Blood/Venous No Growth - Final Report
05/03/25 04:25 Blood Culture - Final
Blood/Venous Staph aureus MRSA
Gram Stain - Final
05/02/25 03:16 Blood Culture - Final
Blood/Venous Staph aureus MRSA
Gram Stain - Final
05/04/25 03:13 Blood Culture - Final
Blood/Venous No Growth - Final Report
05/06/25 13:19 Body Fluid Culture - Final
Synovial Fluid Staph aureus MRSA
Gram Stain - Final
04/30/25 19:46 Blood Culture - Final
Blood/Venous Staph aureus MRSA
Gram Stain - Final
05/04/25 09:25 Respiratory Culture - Final
Endotracheal Staph aureus MRSA
Gram Stain - Final
05/01/25 17:45 Blood Culture - Final
Blood/Venous Staph aureus MRSA
Gram Stain - Final
04/30/25 19:46 Blood Culture - Final
Blood/Venous Staph aureus MRSA
Gram Stain - Final
05/01/25 01:32 Urine Culture - Final
Urine Yeast
05/01/25 01:17 Blood Parasites Smear - Final
Blood/Venous
04/30/25 23:02 Influenza Types A & B (GIORGIO) - Final
Nasal Swab Negative for Influenza A & B, NAAT
Negative results must be combined with clinical observations
and patient history.
Nucleic Acid Amplification test (NAAT)performed on the
[employer] platform.
Imaging:
05/27/2025 CT chest without contrast: overall decreased bilateral consolidation. Decreased or unchanged size of bilateral nodules and cavitary lesions, with decreased wall thickening of the cavitary lesions. Small bilateral pleural effusions noted,
decreased on the right and unchanged on the left. No abnormally enlarged mediastinal lymph nodes identified. No pericardial effusion. Please see full dictation for additional detail.
05/16/2025 CXR (portable): extensive heterogeneous opacities bilaterally. A 6.2 cm cavitary right lower lobe lesion again noted. No pneumothorax or pleural effusion. Mild cardiac enlargement.
05/12/2025 CXR (portable): improved aeration of the right upper lung compared to prior days imaging. Otherwise, extensive diffuse bilateral patchy, nodular and confluent airspace opacities.
05/02/25 CT RLE: Subcutaneous stranding within the soft tissues of the anterior right thigh, and [id number] anterior soft tissues. No drainable abscess is appreciated. Moderate suprapatellar joint effusion, with areas of loculation.
05/01/2025 ECHO (TTE): EF 55%. Normal biventricular size and systolic function. No significant valvular disease. No obvious vegetations.
05/01/2025 CXR (portable): bilateral interstitial and airspace disease noted which may reflect pulmonary edema or pneumonia. Small bilateral pleural effusions noted. Please see full dictation for additional detail.
05/01/2025 Abdominal x-ray. Enteric tube noted in stomach.
05/01/2025 Renal ultrasound: unremarkable renal ultrasound without hydronephrosis, contour deforming solid renal mass or echogenic shadowing foci to suggest renal calculi. Bilateral pleural effusions noted.
05/01/2025 Duplex ultrasound lower extremity: no evidence of DVT in the bilateral lower extremities
04/30/2025 X-ray right foot: soft tissue injury versus ulceration involving the second digit with soft tissue swelling. The cortex of the distal phalanx is indistinct and the possibility of osteomyelitis cannot be excluded. There is soft tissue
swelling of the first digit. No radiographic evidence to suggest osteomyelitis. Please see full dictation for additional detail.
--- NOTE | 2025-06-19 10:21 | W.PN.HOSP.TC ---
Today's Communication/Plan
-
DC oxycodone
Ongoing disposition efforts
Assessment / Plan
Assessment / Plan
Mr. Patrice Mera is a 50 yo man with hx polysubstance abuse, prior CVA (thalamic bleed; right hemiplegia), essential HTN, admitted 04/30 with septic shock 2/2 MRSA bacteremia, SINDY with anion gap metabolic acidosis and hypoxemic respiratory failure.
He is found to have septic joint right knee and development of necrotizing fasciitis.
#Acute respiratory failure, VDRF
-remains On 1 lt oxygen currently. Denies SOB
-CT scan of the chest 05/27 shows stability
- Labs repeated 06/15 unremarkable; normal CPK
prior to today:
-patient was intubated on admission for multiple reasons in setting of septic shock, pneumonia, septic emboli
-CTA without PE
-s/p self extubation on 05/05
-CT Chest -noted with bilateral cavitary nodules -repeat chest CT next week to follow on it
-Methylprednisolone 40 mg IV daily started on 05/11/25 per pulmonary-getting switched to oral prednisone for 5 days-last day 05/20.
#MRSA Bacteremia
Surveillance blood cultures are negative
Continue antibiotics per ID-on ceftaroline and daptomycin
CMP and CPK are ok
prior to today:
Septic Shock - patient was on Levo, Vaso, Epi, Giapreza; remains off pressors
Septic Arthritis Right Knee
Necrotizing Fasciitis right medial thigh and calf
- JEAN 05/06 without e/o vegetation
- Right knee joint aspirate positive for MRSA 05/06
- Exam 05/07 with new concern for necrotizing fasciitis right medial thigh and calf Daily wound care and packing-of the 2 wounds
- Appreciate general surgery and ortho, patient is s/p I&D of necrotizing soft tissue infection and washout right knee on 05/07/25
- 05/07 antibiotics changed to IV Daptomycin Teflaro started on 05/11/2025
- Last positive Blood cultures from 05/09, negative since 05/11/25.
-Blood pressure stable. White count improving -follow for now
#Right second toe infection Gangrene
- stable
prior to today:
-Appreciate ID and Podiatry
-Antibiotics as above
-Arterial US with multiphasic waveforms
-Wound care Betadine soaked gauze to toe - change every day
-S/P Right 2nd toe amputation secondary to gangrenous changes with exposed bone 05/09/25
# Acute kidney injury - ATN in setting of septic shock
Cr stable
prior to today:
Metabolic Acidosis Resolved
-Patient briefly required CRRT but could not tolerate long
-Ultrasound of the kidneys without obstruction
-Appreciate Renal
-SINDY now resolved
-Cheng discontinued on 05/06
- Creatinine stable
# Anemia secondary to acute illness. H&H stable
# Thrombocytosis secondary to infection-resolved
# Anasarca
# Hypoalbuminemia
# Drug abuse urine drug screen positive for Fentanyl, Benzos, Amphetamines and Methamphetamines
Decreased oxycodone from 20 to 10 and from 10 to 5 and space out Ativan from q 4 hr to bid as needed and tolerating well
prior to today:
Patient was discharged to a rehab last admission however he stayed there only for 2 days and signed himself out
# Multidrug resistant hypertension-currently blood pressure stable without medicines.
Stable
prior to today:
Patient was on Coreg, losartan, clonidine, Aldactone as outpatient.
- Patient back on clonidine, spironolactone, losartan, Coreg.
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 Transferred to [facility] . Pt says he was there for 3 months and has weakness of right side and facial droop.
stable
prior to today:
s/p [place] FOR[facility] shunt at [place]
*confirmed cannot get MRI here given shunt
#Vitamin D deficiency-continue replacement
#Chronic back pain
#Morbid obesity with a BMI of 35- Weight loss recommended
#History of nephrolithiasis
#Possible sleep apnea-needs outpatient study as OP.
#ADHD
#Hepatic steatosis per prior imaging-outpatient follow-up
#Active smoker-cessation counseling when able
#DVT prophylaxis-Lovenox
#Full code
CW IV abx regimen per ID till 06/22/25
Remains medically stable for DC
Anticipated Discharge: > 48 hours
Subjective/Interval History
-
Date of Service: June 19, 2025
Voices no specific complaints.
He wants to be completely off of narcotics.
Pain is much better controlled.
He is feeling renewed enthusiasm to get to rehab and get better .He is all shaven and feeling/looking good.
Objective Data
-
Vital Signs:
Vital Signs
Temp Pulse Resp BP Pulse Ox
98.6 F 73 16 175/88 93
06/19/25 07:34 06/19/25 07:34 06/19/25 07:34 06/19/25 07:34 06/19/25 07:34
I&O
06/18/25 06/19/25 06/20/25
06:59 06:59 06:59
Intake Total 1150 / 1150 250 / 250
Output Total 400 / 400 1675 / 1675
Balance 750 / 750 -1425 / -1425
Physical Exam
-
General: Comfortable
Respiratory: Non Labored Respirations; Negative Accessory Resp Muscle Use
Neuro: AO x 3
--- NOTE | 2025-06-19 10:42 | WOUNDNOTE ---
R 2ND TOE AMP
--- NOTE | 2025-06-19 10:42 | WOUNDNOTE ---
R CALF (UPPER MEDIAL)
--- NOTE | 2025-06-19 11:16 | WOUNDNOTE ---
[facility] RN Note: Patient is on a [employer] air bed. He can turn self in bed. R medial thigh 95% pink, 5% yellow fibrin, healing. R upper medial calf ulcer healing, granular. Sacral and heel skin intact. Patient reports a good appetite. Patient
refusing Brody wraps. LE edema less than earlier this admission. Patient does not get out of bed. CHAYA George applied R leg dressings. Sacral shaped silicone border foam maintained. R 2nd toe amp and R knee incisions healed and LAND CHECKER. Heels off bed with
pillows. Plan is SNF transfer when discharged. Updated Dr. Amador who approved minor changes to wound care. Discussed with CHAYA George. Care plan and discharge instructions updated. Will sign off. Call if needed.
--- NOTE | 2025-06-19 14:50 | CM ---
updated referrals in [facility], additional referrals added
indicating abx through 06/22/2025 and wound care
CM left message for Stephanie Cedeño, ([phone]), [place] Inspector from [facility] follow up from her phone call yesterday with Regina Hill.
PLAN: SNF, pending acceptance/bed availability, will need to obtain ins auth once bed is secured
[2025-06-19 15:00] VITALS: BP 180/70
[2025-06-19] MEDS: CUBICIN 130 MG IV (15:07)
[2025-06-19] MEDS: APRESOLINE 5 MG IV (16:08)
[2025-06-19] MEDS: TORADOL 15 MG IV (16:08)
[2025-06-19] MEDS: LOVENOX 40 MG SC (17:13)
[2025-06-19 20:19] VITALS: BP 174/98
[2025-06-19] MEDS: MYCOSTATIN ORAL SUSPENSION PO (22:34)
[2025-06-19 23:55] VITALS: BP 174/98
[2025-06-20] MEDS: APRESOLINE 5 MG IV ×3 (00:15→17:34)
[2025-06-20] MEDS: TEFLARO 270 MG IV ×3 (00:18→16:03)
[2025-06-20 06:00] VITALS: BMI 31.4
[2025-06-20 07:00] VITALS: BP 175/107
[2025-06-20] MEDS: COREG 25 MG PO ×2 (07:12→21:42)
[2025-06-20] MEDS: ALDACTONE 50 MG PO (07:13)
[2025-06-20] MEDS: PROTONIX 40 MG PO (07:13)
[2025-06-20] MEDS: COZAAR 100 MG PO (07:13)
[2025-06-20] MEDS: CATAPRES 0.2 MG PO ×2 (07:13→21:42)
[2025-06-20] MEDS: COLACE PO ×2 (07:13→21:43)
[2025-06-20] MEDS: MYCOSTATIN ORAL SUSPENSION 5 ML PO ×4 (07:13→21:44)
[2025-06-20] MEDS: DAKIN'S SOLUTION 0.125% 1/4 STRENGTH 473 ML TOPICAL (07:14)
[2025-06-20] MEDS: HYDROPHOR 1 APPLIC TOPICAL (07:15)
[2025-06-20] MEDS: DESENEX/MITRAZOL/ZEASORB 1 APPLIC TOPICAL ×2 (07:15→21:45)
[2025-06-20] MEDS: MIRALAX PO (07:16)
[2025-06-20] MEDS: SENOKOT PO ×2 (07:16→21:43)
[2025-06-20 08:47] LABS: Hematocrit 33.7 % (39.0-52.0); Hemoglobin 11.0 g/dL (13.0-18.0); Mean Corp Hgb Conc. 32.6 g/dL (33.0-37.0); Mean Corpuscular Volume 82.0 fL (80.0-94.0); Platelet Count 342 10^3/uL (130-400); Red Cell Dist. Width 15.4 % (11.5-14.5)
--- NOTE | 2025-06-20 10:48 | CM ---
met with patient
patient again states he will be going to his daughter's home in [place] post rehab - patient gave permission to call daughter Any
updated referrals sent
Regina Hill spoke with Spring Marques at [facility] of plan & needing the continued [facility].
spoke with Camelia from [facility] - she will get back to if she can accept patient/bed availability for Monday
patient was agreeable to go to [facility], although he stated his daughter Any works at [facility] ?
Called daughter and left her a message, [facility]/ left message with admissions at [facility]
CM spoke with PT/OT regarding updated notes as will need to request auth once bed is secured
PLAN; SNF, pending acceptance/bed availability, WILL need auth from [facility] once bed secured
--- NOTE | 2025-06-20 10:49 | CM ---
Spoke to Springadam Marques ([phone]), [facility] T[employer] Advisor. I made her aware that patient is amenable to go to a SNF after discharge, and we are hopeful that we can transfer him on 06/23, after he completes his IV antibiotic course of
treatment on 06/22. We have sent multiple referrals out to [facility] facilities . I also made her aware that according to the patient he will be going to his Daughters home in [place] after he is discharged from the skilled facility. I did
make her aware that I did have a VM into Stephanie Gala, his [facility] Right Of Way Worker, to make her aware that his plan after his stay in SNF would be to be discharged to his Daughter's home in [place]. I made Spring aware that
according to my last conversation with Stephanie she had stated they had already started the termination process to have him removed from the [facility], and that I had asked her to not terminate as he will need services in the
community when he is discharged from the SNF. Spring stated from what she can read in their system, he has not yet been terminated. She stated if we need her help in placing him to please call her . VM also left For Stephanie Cedeño to confirm that
they have not Term'd him from the [facility]. Update to CM
[2025-06-20 11:09] LABS: Blood Urea Nitrogen 7 mg/dl (9-20); Calcium 9.0 mg/dl (8.4-10.2); Carbon Dioxide 26 mmol/L (22-30); Chloride 107 mmol/L (98-107); Estimated Creatinine Clearance > 125 ml/min; Glucose 101 mg/dl (70-99); Potassium 3.7 mmol/L (3.5-5.1); Sodium 139 mmol/L (135-145); eGFR > 60.00
--- NOTE | 2025-06-20 11:15 | W.PN.ID1 ---
Date of Service
Date of Service: June 20, 2025
Today's Communication
Continue current antibiotics.
Assessment / Plan
Sustained (04/30 - 05/09) complicated MRSA bacteremia
- Blood cultures clear as of 05/11/2025
Pulmonary septic emboli
Cavitary MRSA PNA
Right knee septic arthritis
- s/p washout 05/07. Cultures with MRSA
Right thigh & calf necrotizing soft tissue infection
Right second toe infection/gangrene/osteomyelitis; s/p amputation
Fever - resolved
Leukocytosis - stable
s/p Hypoxemic respiratory failure, self extubated 05/05
SINDY; resolved
Substance abuse (UDS with fentanyl, amphetamine, methamphetamine, benzodiazepine)
Hx CVA (thalamic bleed) with right hemiplegia
Chronic back pain
Recommendations:
Sputum cx: MRSA
Blood cx's negative 05/11 forward
05/06 R knee fluid: 41,220 WBC, 54% polys, neg crystals.
Synovial cx : MRSA
05/07/25 - s/p washout of R knee (+PUS). Cx MRSA
05/07/25 - s/p I+D right thigh and calf. Cx MRSA
05/09/25 s/p R 2nd toe amputation
Continue Daptomycin IV (d#41).
- Monitor CK while on Dapto. Currently stable.
Continue ceftaroline (d#37)
Continuing abx through 06/22/2025
Follow WBC count, platelets, CPK, temperature, O2 requirements.
White count stable. Continuing to follow.
����������������������������������������������������������
Chief Complaint
-: Clinical Sepsis, Pneumonia and Bacteremia
Subjective / Review of Systems
Review of Systems: No Fever, No Chills, Cough and Sputum Production (Scant)
Vital Signs / Physical Exam
Vital Signs
Vital Signs
Temp Pulse Resp BP Pulse Ox
98.4 F 68 18 175/107 94
06/20/25 07:00 06/20/25 07:13 06/20/25 07:00 06/20/25 07:13 06/20/25 07:00
Physical Exam
Constitutional: No Acute Distress, Comfortable, Chronically Ill and Non-toxic
Cardiovascular: S1/S2; Negative S3/S4
Pulmonary: Non Labored
Gastrointestinal: Non Distended
Extremities: Edema, Venous Insufficiency (Bilateral lower extremities) and Other (LE stasis dermatitis)
Wound: Other (Incisional knee wound - C/D/I and essentially healed with a few crusts. Right thigh wound with granular base. No periwound erythema. Right calf wound with granular base. No periwound erythema.)
Psychological: Calm
Objective Data
Lab Data
Lab Results
06/20/25 07:46
06/20/25 10:25
PT 20.0 Sec (11.4-14.6) H 04/30/25 19:46
INR 1.65 04/30/25 19:46
APTT Cancelled 05/04/25 14:45
Estimated Creat Clear > 125 ml/min 06/20/25 10:25
Lactic Acid 1.9 mmol/L (0.7-2.0) 05/01/25 12:18
Total Bilirubin Cancelled 06/20/25 07:46
AST Cancelled 06/20/25 07:46
ALT Cancelled 06/20/25 07:46
Alkaline Phosphatase Cancelled 06/20/25 07:46
Most recent labs reviewed.
Micro Results:
05/16/25 04:52 Blood Culture - Final
Blood/Venous No Growth - Final Report
05/15/25 05:39 Blood Culture - Final
Blood/Venous No Growth - Final Report
05/14/25 03:20 Blood Culture - Final
Blood/Venous No Growth - Final Report
05/13/25 09:45 Blood Culture - Final
Blood/Venous No Growth - Final Report
05/12/25 05:34 Blood Culture - Final
Blood/Venous No Growth - Final Report
05/11/25 12:40 Blood Culture - Final
Blood/Venous No Growth - Final Report
05/09/25 04:01 Blood Culture - Final
Blood/Venous Staph aureus MRSA
Gram Stain - Final
05/08/25 04:21 Blood Culture - Final
Blood/Venous Staph aureus MRSA
Gram Stain - Final
05/07/25 04:55 Blood Culture - Final
Blood/Venous Staph aureus MRSA
Gram Stain - Final
05/06/25 08:16 Blood Culture - Final
Blood/Venous Staph aureus MRSA
Gram Stain - Final
05/07/25 18:35 Wound Culture - Final
Knee - Right Staph aureus MRSA
Gram Stain - Final
05/07/25 18:35 Anaerobic Culture - Final
Knee - Right NO ANAEROBES ISOLATED
05/07/25 18:35 Wound Culture - Final
Leg - Right Staph aureus MRSA
Gram Stain - Final
05/07/25 18:35 Anaerobic Culture - Final
Leg - Right NO ANAEROBES ISOLATED
05/05/25 03:34 Blood Culture - Final
Blood/Venous No Growth - Final Report
05/03/25 04:25 Blood Culture - Final
Blood/Venous Staph aureus MRSA
Gram Stain - Final
05/02/25 03:16 Blood Culture - Final
Blood/Venous Staph aureus MRSA
Gram Stain - Final
05/04/25 03:13 Blood Culture - Final
Blood/Venous No Growth - Final Report
05/06/25 13:19 Body Fluid Culture - Final
Synovial Fluid Staph aureus MRSA
Gram Stain - Final
04/30/25 19:46 Blood Culture - Final
Blood/Venous Staph aureus MRSA
Gram Stain - Final
05/04/25 09:25 Respiratory Culture - Final
Endotracheal Staph aureus MRSA
Gram Stain - Final
05/01/25 17:45 Blood Culture - Final
Blood/Venous Staph aureus MRSA
Gram Stain - Final
04/30/25 19:46 Blood Culture - Final
Blood/Venous Staph aureus MRSA
Gram Stain - Final
05/01/25 01:32 Urine Culture - Final
Urine Yeast
05/01/25 01:17 Blood Parasites Smear - Final
Blood/Venous
04/30/25 23:02 Influenza Types A & B (GIORGIO) - Final
Nasal Swab Negative for Influenza A & B, NAAT
Negative results must be combined with clinical observations
and patient history.
Nucleic Acid Amplification test (NAAT)performed on the
Efer[employer] platform.
Imaging:
05/27/2025 CT chest without contrast: overall decreased bilateral consolidation. Decreased or unchanged size of bilateral nodules and cavitary lesions, with decreased wall thickening of the cavitary lesions. Small bilateral pleural effusions noted,
decreased on the right and unchanged on the left. No abnormally enlarged mediastinal lymph nodes identified. No pericardial effusion. Please see full dictation for additional detail.
05/16/2025 CXR (portable): extensive heterogeneous opacities bilaterally. A 6.2 cm cavitary right lower lobe lesion again noted. No pneumothorax or pleural effusion. Mild cardiac enlargement.
05/12/2025 CXR (portable): improved aeration of the right upper lung compared to prior days imaging. Otherwise, extensive diffuse bilateral patchy, nodular and confluent airspace opacities.
05/02/25 CT RLE: Subcutaneous stranding within the soft tissues of the anterior right thigh, and [id number] anterior soft tissues. No drainable abscess is appreciated. Moderate suprapatellar joint effusion, with areas of loculation.
05/01/2025 ECHO (TTE): EF 55%. Normal biventricular size and systolic function. No significant valvular disease. No obvious vegetations.
05/01/2025 CXR (portable): bilateral interstitial and airspace disease noted which may reflect pulmonary edema or pneumonia. Small bilateral pleural effusions noted. Please see full dictation for additional detail.
05/01/2025 Abdominal x-ray. Enteric tube noted in stomach.
05/01/2025 Renal ultrasound: unremarkable renal ultrasound without hydronephrosis, contour deforming solid renal mass or echogenic shadowing foci to suggest renal calculi. Bilateral pleural effusions noted.
05/01/2025 Duplex ultrasound lower extremity: no evidence of DVT in the bilateral lower extremities
04/30/2025 X-ray right foot: soft tissue injury versus ulceration involving the second digit with soft tissue swelling. The cortex of the distal phalanx is indistinct and the possibility of osteomyelitis cannot be excluded. There is soft tissue
swelling of the first digit. No radiographic evidence to suggest osteomyelitis. Please see full dictation for additional detail.
--- NOTE | 2025-06-20 12:24 | W.PN.HOSP.TC ---
Today's Communication/Plan
-
CT head due to new headache and elevated blood pressure
Add as needed hydralazine. Continue with current antihypertensives.
Patient is allergic to Toradol. Continue with Tylenol for headache and add back oxycodone for pain management.
Assessment / Plan
Assessment / Plan
Mr. Patrice Mera is a 50 yo man with hx polysubstance abuse, prior CVA (thalamic bleed; right hemiplegia), essential HTN, admitted 04/30 with septic shock 2/2 MRSA bacteremia, SINDY with anion gap metabolic acidosis and hypoxemic respiratory failure.
He is found to have septic joint right knee and development of necrotizing fasciitis.
#Acute respiratory failure, VDRF
-remains On 1 lt oxygen currently.
-CT scan of the chest 05/27 shows stability
- Labs repeated 06/20 unremarkable; normal CPK
prior to today:
-patient was intubated on admission for multiple reasons in setting of septic shock, pneumonia, septic emboli
-CTA without PE
-s/p self extubation on 05/05
-CT Chest -noted with bilateral cavitary nodules -repeat chest CT next week to follow on it
-Methylprednisolone 40 mg IV daily started on 05/11/25 per pulmonary-getting switched to oral prednisone for 5 days-last day 05/20.
#MRSA Bacteremia
Surveillance blood cultures are negative
Continue antibiotics per ID-on ceftaroline and daptomycin - last day 06/22/25
CMP and CPK are ok
prior to today:
Septic Shock - patient was on Levo, Vaso, Epi, Giapreza; remains off pressors
Septic Arthritis Right Knee
Necrotizing Fasciitis right medial thigh and calf
- JEAN 05/06 without e/o vegetation
- Right knee joint aspirate positive for MRSA 05/06
- Exam 05/07 with new concern for necrotizing fasciitis right medial thigh and calf Daily wound care and packing-of the 2 wounds
- Appreciate general surgery and ortho, patient is s/p I&D of necrotizing soft tissue infection and washout right knee on 05/07/25
- 05/07 antibiotics changed to IV Daptomycin Teflaro started on 05/11/2025
- Last positive Blood cultures from 05/09, negative since 05/11/25.
-Blood pressure stable. White count improving -follow for now
#Right second toe infection Gangrene
- stable
prior to today:
-Appreciate ID and Podiatry
-Antibiotics as above
-Arterial US with multiphasic waveforms
-Wound care Betadine soaked gauze to toe - change every day
-S/P Right 2nd toe amputation secondary to gangrenous changes with exposed bone 05/09/25
# Acute kidney injury - ATN in setting of septic shock
Cr stable
prior to today:
Metabolic Acidosis Resolved
-Patient briefly required CRRT but could not tolerate long
-Ultrasound of the kidneys without obstruction
-Appreciate Renal
-SINDY now resolved
-Cheng discontinued on 05/06
- Creatinine stable
# Anemia secondary to acute illness. H&H stable
# Thrombocytosis secondary to infection-resolved
# Anasarca
# Hypoalbuminemia
# Drug abuse urine drug screen positive for Fentanyl, Benzos, Amphetamines and Methamphetamines
Decreased oxycodone from 20 to 10 and from 10 to 5 and space out Ativan from q 4 hr to bid as needed and tolerating well
prior to today:
Patient was discharged to a rehab last admission however he stayed there only for 2 days and signed himself out
# Multidrug resistant hypertension-currently blood pressure stable without medicines.
Elevated readings since yesterday associated with headache. Unclear why new elevation. Unclear if related to daptomycin. With headache and elevated blood pressure rule out intracranial issues? Press syndrome. 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
prior to today:
Patient was on Coreg, losartan, clonidine, Aldactone as outpatient.
- Patient back on clonidine, spironolactone, losartan, Coreg.
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 Transferred to [place] . Pt says he was there for 3 months and has weakness of right side and facial droop.
stable
prior to today:
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
*confirmed cannot get MRI here given shunt
#Vitamin D deficiency-continue replacement
#Chronic back pain
#Morbid obesity with a BMI of 35- Weight loss recommended
#History of nephrolithiasis
#Possible sleep apnea-needs outpatient study as OP.
#ADHD
#Hepatic steatosis per prior imaging-outpatient follow-up
#Active smoker-cessation counseling when able
#DVT prophylaxis-Lovenox
#Full code
CW IV abx regimen per ID till 06/22/25
Anticipated Discharge: > 48 hours
Subjective/Interval History
-
Date of Service: June 20, 2025
Patient started to have headache since yesterday. He says it is probably related to his elevated blood pressure which is also new elevation.
Denies any photo phonophobia. No nausea vomiting. Bifrontal and mostly anterior. No history of chronic headaches. No vision changes or speech disturbances. No new limb weaknesses.
Denies shortness of breath or chest pain.
Objective Data
-
Labs:
Laboratory Results
06/20/25 06/20/25
07:46 10:25
WBC 6.3
Hgb 11.0 L
Hct 33.7 L
Plt Count 342
Sodium Cancelled 139
Potassium Cancelled 3.7
Chloride Cancelled 107
Carbon Dioxide Cancelled 26
BUN Cancelled 7 L
Creatinine Cancelled 0.5 L
Glucose Cancelled 101 H
Calcium Cancelled 9.0
Total Bilirubin Cancelled
AST Cancelled
ALT Cancelled
Alkaline Phosphatase Cancelled
Vital Signs:
Vital Signs
Temp Pulse Resp BP Pulse Ox
98.4 F 68 18 175/107 94
06/20/25 07:00 06/20/25 07:13 06/20/25 07:00 06/20/25 07:13 06/20/25 07:00
I&O
06/19/25 06/20/25 06/21/25
06:59 06:59 06:59
Intake Total 250 / 250 940 / 940
Output Total 1675 / 1675 950 / 950
Balance -1425 / -1425 -10 / -10
Physical Exam
-
General: No Apparent Distress
Respiratory: Clear to Auscultation (anteriorly) and Non Labored Respirations; Negative Accessory Resp Muscle Use
Cardiac: Regular Rhythm and S1/S2; Negative Tachycardic
Neuro: AO x 3; Negative No Motor Deficits (Rt hemiparesis as before)
Psych: Calm; Negative Confused
Data Reviewed
-
Labs: Labs Reviewed by me
[2025-06-20 12:52] VITALS: BP 189/108; PULSE 71
[2025-06-20 12:55] VITALS: BP 189/108; PULSE 71
[2025-06-20] MEDS: ROXICODONE 5 MG PO ×3 (13:15→21:43)
[2025-06-20] MEDS: CUBICIN 130 MG IV (14:16)
[2025-06-20 15:00] VITALS: BP 177/95
[2025-06-20] MEDS: LOVENOX 40 MG SC (16:31)
[2025-06-20 23:00] VITALS: BP 153/88
[2025-06-21] MEDS: TEFLARO 270 MG IV ×3 (00:05→16:12)
[2025-06-21] MEDS: ROXICODONE 5 MG PO ×5 (03:03→22:00)
[2025-06-21 06:00] VITALS: BMI 31.5
[2025-06-21 07:00] VITALS: BP 167/92
[2025-06-21] MEDS: MIRALAX PO (09:17)
[2025-06-21] MEDS: COLACE PO ×3 (09:17→20:36)
[2025-06-21] MEDS: COREG 25 MG PO ×2 (09:20→20:34)
[2025-06-21] MEDS: CATAPRES 0.2 MG PO ×2 (09:20→20:34)
[2025-06-21] MEDS: PROTONIX 40 MG PO (09:20)
[2025-06-21] MEDS: ALDACTONE 50 MG PO (09:20)
[2025-06-21] MEDS: SENOKOT PO ×3 (09:21→20:38)
[2025-06-21] MEDS: COZAAR 100 MG PO (09:21)
[2025-06-21] MEDS: MYCOSTATIN ORAL SUSPENSION PO ×5 (09:27→20:36)
[2025-06-21] MEDS: HYDROPHOR 1 APPLIC TOPICAL (12:50)
[2025-06-21] MEDS: DESENEX/MITRAZOL/ZEASORB 1 APPLIC TOPICAL ×2 (12:50→20:59)
[2025-06-21] MEDS: DAKIN'S SOLUTION 0.125% 1/4 STRENGTH 1 ML TOPICAL (12:50)
--- NOTE | 2025-06-21 13:36 | W.PN.HOSP.TC ---
Today's Communication/Plan
-
Hold Dapto
CW Antihypertensives and prn hydralazine
Assessment / Plan
Assessment / Plan
Mr. Patrice Mera is a 50 yo man with hx polysubstance abuse, prior CVA (thalamic bleed; right hemiplegia), essential HTN, admitted 04/30 with septic shock 2/2 MRSA bacteremia, SINDY with anion gap metabolic acidosis and hypoxemic respiratory failure.
He is found to have septic joint right knee and development of necrotizing fasciitis.
#Acute respiratory failure, VDRF
-off of O2
-CT scan of the chest 05/27 shows stability
- Labs repeated 06/20 unremarkable; normal CPK
prior to today:
-patient was intubated on admission for multiple reasons in setting of septic shock, pneumonia, septic emboli
-CTA without PE
-s/p self extubation on 05/05
-CT Chest -noted with bilateral cavitary nodules -repeat chest CT next week to follow on it
-Methylprednisolone 40 mg IV daily started on 05/11/25 per pulmonary-getting switched to oral prednisone for 5 days-last day 05/20.
#MRSA Bacteremia
Surveillance blood cultures are negative
Continue antibiotics per ID-on ceftaroline and daptomycin - last day 06/22/25
CMP and CPK are ok
prior to today:
Septic Shock - patient was on Levo, Vaso, Epi, Giapreza; remains off pressors
Septic Arthritis Right Knee
Necrotizing Fasciitis right medial thigh and calf
- JEAN 05/06 without e/o vegetation
- Right knee joint aspirate positive for MRSA 05/06
- Exam 05/07 with new concern for necrotizing fasciitis right medial thigh and calf Daily wound care and packing-of the 2 wounds
- Appreciate general surgery and ortho, patient is s/p I&D of necrotizing soft tissue infection and washout right knee on 05/07/25
- 05/07 antibiotics changed to IV Daptomycin Teflaro started on 05/11/2025
- Last positive Blood cultures from 05/09, negative since 05/11/25.
-Blood pressure stable. White count improving -follow for now
#Right second toe infection Gangrene
- stable
prior to today:
-Appreciate ID and Podiatry
-Antibiotics as above
-Arterial US with multiphasic waveforms
-Wound care Betadine soaked gauze to toe - change every day
-S/P Right 2nd toe amputation secondary to gangrenous changes with exposed bone 05/09/25
# Acute kidney injury - ATN in setting of septic shock
Cr stable
prior to today:
Metabolic Acidosis Resolved
-Patient briefly required CRRT but could not tolerate long
-Ultrasound of the kidneys without obstruction
-Appreciate Renal
-SINDY now resolved
-Cheng discontinued on 05/06
- Creatinine stable
# Anemia secondary to acute illness. H&H stable
# Thrombocytosis secondary to infection-resolved
# Anasarca
# Hypoalbuminemia
# Drug abuse urine drug screen positive for Fentanyl, Benzos, Amphetamines and Methamphetamines
Decreased oxycodone from 20 to 10 and from 10 to 5 and space out Ativan from q 4 hr to bid as needed and tolerating well
prior to today:
Patient was discharged to a rehab last admission however he stayed there only for 2 days and signed himself out
# Multidrug resistant hypertension-currently blood pressure stable without medicines.
Elevated readings since 06/19 associated with headache. Unclear why new elevation. CT head shows SIGNAL INSPECTOR shunt in place and no evidence of acute intracranial findings. Is mention about daptomycin causing elevation in blood pressure. Do not know why it
has to be now. Discussed with ID who said if persistent elevation we could stop daptomycin early. He is due to stop antibiotics tomorrow. Continue with as needed hydralazine and if persistent elevations may be add Norvasc to his regimen.
prior to today:
Patient was on Coreg, losartan, clonidine, Aldactone as outpatient.
- Patient back on clonidine, spironolactone, losartan, Coreg.
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 Transferred to [place] . Pt says he was there for 3 months and has weakness of right side and facial droop.
stable
prior to today:
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
*confirmed cannot get MRI here given shunt
#Vitamin D deficiency-continue replacement
#Chronic back pain
#Morbid obesity with a BMI of 35- Weight loss recommended
#History of nephrolithiasis
#Possible sleep apnea-needs outpatient study as OP.
#ADHD
#Hepatic steatosis per prior imaging-outpatient follow-up
#Active smoker-cessation counseling when able
#DVT prophylaxis-Lovenox
#Full code
CW IV abx regimen per ID till 06/22/25
Anticipated Discharge: > 48 hours
Subjective/Interval History
-
Date of Service: June 21, 2025
Still some headache frontal. No nausea vomiting. No photo or phonophobia.
No shortness of breath or chest pain.
No dizziness
Objective Data
-
Vital Signs:
Vital Signs
Temp Pulse Resp BP Pulse Ox
97.8 F 71 18 167/90 94
06/21/25 07:00 06/21/25 09:20 06/21/25 07:00 06/21/25 09:20 06/21/25 07:00
I&O
06/20/25 06/21/25 06/22/25
06:59 06:59 06:59
Intake Total 940 / 940 1050 / 1050
Output Total 950 / 950 850 / 850
Balance -10 / -10 200 / 200
Physical Exam
-
General: Comfortable
Respiratory: Non Labored Respirations; Negative Accessory Resp Muscle Use
Cardiac: Regular Rhythm and S1/S2; Negative Tachycardic
GI: Soft
Neuro: AO x 3; Negative No Motor Deficits (rt hemiparesis as before)
Psych: Calm; Negative Confused
[2025-06-21 15:00] VITALS: BP 147/87
[2025-06-21] MEDS: LOVENOX 40 MG SC (16:13)
[2025-06-21 23:00] VITALS: BP 134/79
[2025-06-22] MEDS: TEFLARO 270 MG IV ×3 (00:44→16:12)
[2025-06-22] MEDS: ROXICODONE 5 MG PO ×5 (02:10→23:14)
[2025-06-22 06:00] VITALS: BMI 31.5
[2025-06-22 07:00] VITALS: BP 139/80
[2025-06-22] MEDS: COREG 25 MG PO ×2 (09:06→20:31)
[2025-06-22] MEDS: CATAPRES 0.2 MG PO ×2 (09:06→20:30)
[2025-06-22] MEDS: MYCOSTATIN ORAL SUSPENSION 5 ML PO (09:06)
[2025-06-22] MEDS: MIRALAX PO (09:07)
[2025-06-22] MEDS: COLACE PO ×2 (09:07→20:31)
[2025-06-22] MEDS: ALDACTONE 50 MG PO (09:07)
[2025-06-22] MEDS: PROTONIX 40 MG PO (09:07)
[2025-06-22] MEDS: COZAAR 100 MG PO (09:07)
[2025-06-22] MEDS: SENOKOT PO ×2 (09:08→20:32)
[2025-06-22] MEDS: HYDROPHOR 1 APPLIC TOPICAL (09:08)
[2025-06-22] MEDS: DRISDOL (VITAMIN D2) 50000 UNITS PO (09:11)
[2025-06-22] MEDS: DESENEX/MITRAZOL/ZEASORB 1 APPLIC TOPICAL ×2 (09:12→20:32)
[2025-06-22] MEDS: DAKIN'S SOLUTION 0.125% 1/4 STRENGTH 473 ML TOPICAL (09:12)
[2025-06-22] MEDS: MYCOSTATIN ORAL SUSPENSION PO ×3 (10:58→22:03)
--- NOTE | 2025-06-22 11:49 | W.PN.ID1 ---
Date of Service
Date of Service: June 22, 2025
Today's Communication
Complete course of antibiotics today.
Assessment / Plan
Sustained (04/30 - 05/09) complicated MRSA bacteremia
- Blood cultures clear as of 05/11/2025
Pulmonary septic emboli
Cavitary MRSA PNA
Right knee septic arthritis
- s/p washout 05/07. Cultures with MRSA
Right thigh & calf necrotizing soft tissue infection
Right second toe infection/gangrene/osteomyelitis; s/p amputation
Fever - resolved
Leukocytosis - stable
BURRIS
s/p Hypoxemic respiratory failure, self extubated 05/05
SINDY; resolved
Substance abuse (UDS with fentanyl, amphetamine, methamphetamine, benzodiazepine)
Hx CVA (thalamic bleed) with right hemiplegia
Chronic back pain
Recommendations:
Sputum cx: MRSA
Blood cx's negative 05/11 forward
05/06 R knee fluid: 41,220 WBC, 54% polys, neg crystals.
Synovial cx : MRSA
05/07/25 - s/p washout of R knee (+PUS). Cx MRSA
05/07/25 - s/p I+D right thigh and calf. Cx MRSA
05/09/25 s/p R 2nd toe amputation
Daptomycin held secondary to concern for inducing HTN. Blood pressures improved. Will discontinue
Completing course of ceftaroline today. Thereafter, observe off antibiotics.
Follow WBC count, platelets, CPK, temperature, O2 requirements.
White count stable. Continuing to follow.
����������������������������������������������������������
Chief Complaint
-: Clinical Sepsis, Pneumonia and Bacteremia
Subjective / Review of Systems
Review of Systems: No Fever and No Chills
Vital Signs / Physical Exam
Vital Signs
Vital Signs
Temp Pulse Resp BP Pulse Ox
97.6 F 77 18 139/80 94
06/22/25 07:00 06/22/25 07:00 06/22/25 07:00 06/22/25 07:00 06/22/25 07:00
Physical Exam
Constitutional: No Acute Distress, Comfortable, Chronically Ill and Non-toxic
Cardiovascular: S1/S2; Negative S3/S4
Pulmonary: Non Labored
Gastrointestinal: Non Distended
Extremities: Edema, Venous Insufficiency (Bilateral lower extremities) and Other (LE stasis dermatitis)
Wound: Other (Incisional knee wound - C/D/I and essentially healed with a few crusts. Right thigh wound with granular base. No periwound erythema. Right calf wound with granular base. No periwound erythema.)
Psychological: Calm
Objective Data
Lab Data
Lab Results
06/20/25 07:46
06/20/25 10:25
PT 20.0 Sec (11.4-14.6) H 04/30/25 19:46
INR 1.65 04/30/25 19:46
APTT Cancelled 05/04/25 14:45
Estimated Creat Clear > 125 ml/min 06/20/25 10:25
Lactic Acid 1.9 mmol/L (0.7-2.0) 05/01/25 12:18
Total Bilirubin Cancelled 06/20/25 07:46
AST Cancelled 06/20/25 07:46
ALT Cancelled 06/20/25 07:46
Alkaline Phosphatase Cancelled 06/20/25 07:46
Most recent labs reviewed.
Micro Results:
05/16/25 04:52 Blood Culture - Final
Blood/Venous No Growth - Final Report
05/15/25 05:39 Blood Culture - Final
Blood/Venous No Growth - Final Report
05/14/25 03:20 Blood Culture - Final
Blood/Venous No Growth - Final Report
05/13/25 09:45 Blood Culture - Final
Blood/Venous No Growth - Final Report
05/12/25 05:34 Blood Culture - Final
Blood/Venous No Growth - Final Report
05/11/25 12:40 Blood Culture - Final
Blood/Venous No Growth - Final Report
05/09/25 04:01 Blood Culture - Final
Blood/Venous Staph aureus MRSA
Gram Stain - Final
05/08/25 04:21 Blood Culture - Final
Blood/Venous Staph aureus MRSA
Gram Stain - Final
05/07/25 04:55 Blood Culture - Final
Blood/Venous Staph aureus MRSA
Gram Stain - Final
05/06/25 08:16 Blood Culture - Final
Blood/Venous Staph aureus MRSA
Gram Stain - Final
05/07/25 18:35 Wound Culture - Final
Knee - Right Staph aureus MRSA
Gram Stain - Final
05/07/25 18:35 Anaerobic Culture - Final
Knee - Right NO ANAEROBES ISOLATED
05/07/25 18:35 Wound Culture - Final
Leg - Right Staph aureus MRSA
Gram Stain - Final
05/07/25 18:35 Anaerobic Culture - Final
Leg - Right NO ANAEROBES ISOLATED
05/05/25 03:34 Blood Culture - Final
Blood/Venous No Growth - Final Report
05/03/25 04:25 Blood Culture - Final
Blood/Venous Staph aureus MRSA
Gram Stain - Final
05/02/25 03:16 Blood Culture - Final
Blood/Venous Staph aureus MRSA
Gram Stain - Final
05/04/25 03:13 Blood Culture - Final
Blood/Venous No Growth - Final Report
05/06/25 13:19 Body Fluid Culture - Final
Synovial Fluid Staph aureus MRSA
Gram Stain - Final
04/30/25 19:46 Blood Culture - Final
Blood/Venous Staph aureus MRSA
Gram Stain - Final
05/04/25 09:25 Respiratory Culture - Final
Endotracheal Staph aureus MRSA
Gram Stain - Final
05/01/25 17:45 Blood Culture - Final
Blood/Venous Staph aureus MRSA
Gram Stain - Final
04/30/25 19:46 Blood Culture - Final
Blood/Venous Staph aureus MRSA
Gram Stain - Final
05/01/25 01:32 Urine Culture - Final
Urine Yeast
05/01/25 01:17 Blood Parasites Smear - Final
Blood/Venous
04/30/25 23:02 Influenza Types A & B (GIORGIO) - Final
Nasal Swab Negative for Influenza A & B, NAAT
Negative results must be combined with clinical observations
and patient history.
Nucleic Acid Amplification test (NAAT)performed on the
[employer] platform.
Imaging:
05/27/2025 CT chest without contrast: overall decreased bilateral consolidation. Decreased or unchanged size of bilateral nodules and cavitary lesions, with decreased wall thickening of the cavitary lesions. Small bilateral pleural effusions noted,
decreased on the right and unchanged on the left. No abnormally enlarged mediastinal lymph nodes identified. No pericardial effusion. Please see full dictation for additional detail.
05/16/2025 CXR (portable): extensive heterogeneous opacities bilaterally. A 6.2 cm cavitary right lower lobe lesion again noted. No pneumothorax or pleural effusion. Mild cardiac enlargement.
05/12/2025 CXR (portable): improved aeration of the right upper lung compared to prior days imaging. Otherwise, extensive diffuse bilateral patchy, nodular and confluent airspace opacities.
05/02/25 CT RLE: Subcutaneous stranding within the soft tissues of the anterior right thigh, and [id number] anterior soft tissues. No drainable abscess is appreciated. Moderate suprapatellar joint effusion, with areas of loculation.
05/01/2025 ECHO (TTE): EF 55%. Normal biventricular size and systolic function. No significant valvular disease. No obvious vegetations.
05/01/2025 CXR (portable): bilateral interstitial and airspace disease noted which may reflect pulmonary edema or pneumonia. Small bilateral pleural effusions noted. Please see full dictation for additional detail.
05/01/2025 Abdominal x-ray. Enteric tube noted in stomach.
05/01/2025 Renal ultrasound: unremarkable renal ultrasound without hydronephrosis, contour deforming solid renal mass or echogenic shadowing foci to suggest renal calculi. Bilateral pleural effusions noted.
05/01/2025 Duplex ultrasound lower extremity: no evidence of DVT in the bilateral lower extremities
04/30/2025 X-ray right foot: soft tissue injury versus ulceration involving the second digit with soft tissue swelling. The cortex of the distal phalanx is indistinct and the possibility of osteomyelitis cannot be excluded. There is soft tissue
swelling of the first digit. No radiographic evidence to suggest osteomyelitis. Please see full dictation for additional detail.
--- NOTE | 2025-06-22 11:49 | W.PN.HOSP.TC ---
Today's Communication/Plan
-
Going to be done with abx today
Follow BP
Tx headache symptomatically and if persists consult neuro
DC planning
Assessment / Plan
Assessment / Plan
Mr. Patrice Mera is a 50 yo man with hx polysubstance abuse, prior CVA (thalamic bleed; right hemiplegia), essential HTN, admitted 04/30 with septic shock 2/2 MRSA bacteremia, SINDY with anion gap metabolic acidosis and hypoxemic respiratory failure.
He is found to have septic joint right knee and development of necrotizing fasciitis.
#Acute respiratory failure, VDRF
-off of O2
-CT scan of the chest 05/27 shows stability
- Labs repeated 06/20 unremarkable; normal CPK
prior to today:
-patient was intubated on admission for multiple reasons in setting of septic shock, pneumonia, septic emboli
-CTA without PE
-s/p self extubation on 05/05
-CT Chest -noted with bilateral cavitary nodules -repeat chest CT next week to follow on it
-Methylprednisolone 40 mg IV daily started on 05/11/25 per pulmonary-getting switched to oral prednisone for 5 days-last day 05/20.
#MRSA Bacteremia
Surveillance blood cultures are negative
Continue antibiotics per ID-on ceftaroline and daptomycin - last day 06/22/25
CMP and CPK are ok
prior to today:
Septic Shock - patient was on Levo, Vaso, Epi, Giapreza; remains off pressors
Septic Arthritis Right Knee
Necrotizing Fasciitis right medial thigh and calf
- JEAN 05/06 without e/o vegetation
- Right knee joint aspirate positive for MRSA 05/06
- Exam 05/07 with new concern for necrotizing fasciitis right medial thigh and calf Daily wound care and packing-of the 2 wounds
- Appreciate general surgery and ortho, patient is s/p I&D of necrotizing soft tissue infection and washout right knee on 05/07/25
- 05/07 antibiotics changed to IV Daptomycin Teflaro started on 05/11/2025
- Last positive Blood cultures from 05/09, negative since 05/11/25.
-Blood pressure stable. White count improving -follow for now
#Right second toe infection Gangrene
- stable
prior to today:
-Appreciate ID and Podiatry
-Antibiotics as above
-Arterial US with multiphasic waveforms
-Wound care Betadine soaked gauze to toe - change every day
-S/P Right 2nd toe amputation secondary to gangrenous changes with exposed bone 05/09/25
# Acute kidney injury - ATN in setting of septic shock
Cr stable
prior to today:
Metabolic Acidosis Resolved
-Patient briefly required CRRT but could not tolerate long
-Ultrasound of the kidneys without obstruction
-Appreciate Renal
-SIDNY now resolved
-Cheng discontinued on 05/06
- Creatinine stable
# Anemia secondary to acute illness. H&H stable
# Thrombocytosis secondary to infection-resolved
# Anasarca
# Hypoalbuminemia
# Drug abuse urine drug screen positive for Fentanyl, Benzos, Amphetamines and Methamphetamines
Decreased oxycodone from 20 to 10 and from 10 to 5 and space out Ativan from q 4 hr to bid as needed and tolerating well
prior to today:
Patient was discharged to a rehab last admission however he stayed there only for 2 days and signed himself out
# Multidrug resistant hypertension-
Elevated readings since 06/19 associated with headache. Unclear why new elevation. CT head shows QUALITY CONTROL CHEMIST shunt in place and no evidence of acute intracranial findings. Overall ventricles are within the limits of normal in size. Is mention about
daptomycin causing elevation in blood pressure. Do not know why it has to be now. Discussed with ID who said if persistent elevation we could stop daptomycin early. He is due to stop antibiotics tomorrow. Continue with as needed hydralazine and
if persistent elevations may be add Norvasc to his regimen.
Improved blood pressure readings now.
Patient still with headaches. Will watch today with improved blood pressure and if still persistent consult neurology
prior to today:
Patient was on Coreg, losartan, clonidine, Aldactone as outpatient.
- Patient back on clonidine, spironolactone, losartan, Coreg.
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 Transferred to [place] . Pt says he was there for 3 months and has weakness of right side and facial droop.
stable
prior to today:
s/p QUALITY CONTROL CHEMIST shunt at [facility]
*confirmed cannot get MRI here given shunt
#Vitamin D deficiency-continue replacement
#Chronic back pain
#Morbid obesity with a BMI of 35- Weight loss recommended
#History of nephrolithiasis
#Possible sleep apnea-needs outpatient study as OP.
#ADHD
#Hepatic steatosis per prior imaging-outpatient follow-up
#Active smoker-cessation counseling when able
#DVT prophylaxis-Lovenox
#Full code
CW IV abx regimen per ID till 06/22/25
Anticipated Discharge: 24 - 48 hours
Subjective/Interval History
-
Date of Service: June 22, 2025
Blood pressure is improved but still having headache mostly bifrontal. Denies any photophobia or phonophobia. No nausea vomiting. No dizziness.
Objective Data
-
Vital Signs:
Vital Signs
Temp Pulse Resp BP Pulse Ox
97.6 F 77 18 139/80 94
06/22/25 07:00 06/22/25 07:00 06/22/25 07:00 06/22/25 07:00 06/22/25 07:00
I&O
06/21/25 06/22/25 06/23/25
06:59 06:59 06:59
Intake Total 1050 / 1050 1440 / 1440
Output Total 850 / 850 1000 / 1000
Balance 200 / 200 440 / 440
Physical Exam
-
General: Comfortable
Respiratory: Non Labored Respirations; Negative Accessory Resp Muscle Use
Cardiac: Regular Rhythm and S1/S2; Negative Murmur
GI: Soft
Neuro: AO x 3 and Other (no nystagmus); Negative No Motor Deficits (right hemiparesis)
Psych: Calm; Negative Confused or Agitated
[2025-06-22 15:00] VITALS: BP 162/93
[2025-06-22] MEDS: LOVENOX 40 MG SC (16:12)
[2025-06-22 20:27] VITALS: BP 153/87
[2025-06-22 23:10] VITALS: BP 151/84
[2025-06-23] MEDS: ROXICODONE 5 MG PO ×5 (04:21→22:23)
[2025-06-23 05:12] VITALS: BMI 31.5
--- NOTE | 2025-06-23 07:13 | W.PN.HOSP.TC ---
Today's Communication/Plan
-
Cardiology and neurology eval. Discharge planning
Assessment / Plan
Assessment / Plan
Physical exam:
General: Acute and chronically ill
HEENT: Normocephalic, Atraumatic and Moist Mucous Membranes
Respiratory: Clear to Auscultation; Negative Wheezes, Rales or Rhonchi
Cardiac: Regular Rhythm and S1/S2
GI: Soft, Nontender and Nondistended
Musculoskeletal: No Clubbing, No Cyanosis and No Edema
Neuro: Awake, Alert and Oriented, no neurological deficit
Psych: Calm
A/P:
Mr. Patrice Mera is a 50 yo man with hx polysubstance abuse, prior CVA (thalamic bleed; right hemiplegia), essential HTN, admitted 04/30 with septic shock 2/2 MRSA bacteremia, SINDY with anion gap metabolic acidosis and hypoxemic respiratory failure.
He is found to have septic joint right knee and development of necrotizing fasciitis.
#Persistent headache
Probably related to hypertension but other possibilities contemplated
Neurology eval-discussed with neurology today
Hold discharge until cleared by neurology and cardiology
#Resistant hypertension
Patient on multiple antihypertensive medications including clonidine, carvedilol, losartan, spironolactone, IV hydralazine as needed.
Despite above regimen blood pressure remains elevated therefore we will request cardiology reevaluation for further advice-discussed with cardiology today
#Acute respiratory failure, VDRF
-off of O2
-CT scan of the chest 05/27 shows stability
- Labs repeated 06/20 unremarkable; normal CPK
prior to today:
-patient was intubated on admission for multiple reasons in setting of septic shock, pneumonia, septic emboli
-CTA without PE
-s/p self extubation on 05/05
-CT Chest -noted with bilateral cavitary nodules -repeat chest CT next week to follow on it
-Methylprednisolone 40 mg IV daily started on 05/11/25 per pulmonary-getting switched to oral prednisone for 5 days-last day 05/20.
#MRSA Bacteremia
Surveillance blood cultures are negative
Continue antibiotics per ID-on ceftaroline and daptomycin - last day 06/22/25
CMP and CPK are ok
prior to today:
Septic Shock - patient was on Levo, Vaso, Epi, Giapreza; remains off pressors
Septic Arthritis Right Knee
Necrotizing Fasciitis right medial thigh and calf
- JEAN 05/06 without e/o vegetation
- Right knee joint aspirate positive for MRSA 05/06
- Exam 05/07 with new concern for necrotizing fasciitis right medial thigh and calf Daily wound care and packing-of the 2 wounds
- Appreciate general surgery and ortho, patient is s/p I&D of necrotizing soft tissue infection and washout right knee on 05/07/25
- 05/07 antibiotics changed to IV Daptomycin Teflaro started on 05/11/2025
- Last positive Blood cultures from 05/09, negative since 05/11/25.
-Blood pressure stable. White count improving -follow for now
#Right second toe infection Gangrene
- stable
prior to today:
-Appreciate ID and Podiatry
-Antibiotics as above
-Arterial US with multiphasic waveforms
-Wound care Betadine soaked gauze to toe - change every day
-S/P Right 2nd toe amputation secondary to gangrenous changes with exposed bone 05/09/25
# Acute kidney injury - ATN in setting of septic shock
Cr stable
prior to today:
Metabolic Acidosis Resolved
-Patient briefly required CRRT but could not tolerate long
-Ultrasound of the kidneys without obstruction
-Appreciate Renal
-SINDY now resolved
-Cheng discontinued on 05/06
- Creatinine stable
# Anemia secondary to acute illness. H&H stable
# Thrombocytosis secondary to infection-resolved
# Anasarca
# Hypoalbuminemia
# Drug abuse urine drug screen positive for Fentanyl, Benzos, Amphetamines and Methamphetamines
Decreased oxycodone from 20 to 10 and from 10 to 5 and space out Ativan from q 4 hr to bid as needed and tolerating well
prior to today:
Patient was discharged to a rehab last admission however he stayed there only for 2 days and signed himself out
# Multidrug resistant hypertension-
Elevated readings since 06/19 associated with headache. Unclear why new elevation. CT head shows FOLD SKIVER shunt in place and no evidence of acute intracranial findings. Overall ventricles are within the limits of normal in size. Is mention about
daptomycin causing elevation in blood pressure. Do not know why it has to be now. Discussed with ID who said if persistent elevation we could stop daptomycin early. He is due to stop antibiotics tomorrow. Continue with as needed hydralazine and
if persistent elevations may be add Norvasc to his regimen.
Improved blood pressure readings now.
Patient still with headaches. Will watch today with improved blood pressure and if still persistent consult neurology
prior to today:
Patient was on Coreg, losartan, clonidine, Aldactone as outpatient.
- Patient back on clonidine, spironolactone, losartan, Coreg.
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 Transferred to [place] . Pt says he was there for 3 months and has weakness of right side and facial droop.
stable
prior to today:
s/p FOLD SKIVER shunt at [place]
*confirmed cannot get MRI here given shunt
#Vitamin D deficiency-continue replacement
#Chronic back pain
#Morbid obesity with a BMI of 35- Weight loss recommended
#History of nephrolithiasis
#Possible sleep apnea-needs outpatient study as OP.
#ADHD
#Hepatic steatosis per prior imaging-outpatient follow-up
#Active smoker-cessation counseling when able
#DVT prophylaxis-Lovenox
#Full code
Antibiotic regimen completed.
Total time spent on today's encounter was 38 minutes which included time spent in counseling the patient/family regarding diagnosis and treatment plan as listed above, goals of care, and symptom management. Case was discussed with nursing staff,
specialists, and care coordinators/case management. All labs and imaging personally reviewed by me. Remainder the time spent in detailed review of previous records, lab data, imaging, and other medical provider documentation.
Anticipated Discharge: Within 24 hours
Subjective/Interval History
-
Date of Service: June 23, 2025
Patient still complains of headache 8 out of 10. No paresthesias or vision abnormalities.
Objective Data
-
Vital Signs:
Vital Signs
Temp Pulse Resp BP Pulse Ox
97.6 F 72 18 151/84 93
06/22/25 23:10 06/22/25 23:10 06/22/25 23:10 06/22/25 23:10 06/22/25 23:10
I&O
06/22/25 06/23/25 06/24/25
06:59 06:59 06:59
Intake Total 1440 / 1440 890 / 890
Output Total 1000 / 1000 1500 / 1500
Balance 440 / 440 -610 / -610
[2025-06-23] MEDS: COLACE PO ×2 (07:22→22:45)
[2025-06-23] MEDS: MIRALAX PO (07:22)
[2025-06-23] MEDS: SENOKOT PO ×2 (07:22→22:46)
[2025-06-23 08:05] VITALS: BP 158/91
[2025-06-23] MEDS: COZAAR 100 MG PO (08:21)
[2025-06-23] MEDS: MYCOSTATIN ORAL SUSPENSION PO ×4 (08:21→22:46)
[2025-06-23] MEDS: COREG 25 MG PO ×2 (08:21→22:45)
[2025-06-23] MEDS: PROTONIX 40 MG PO (08:21)
[2025-06-23] MEDS: HYDROPHOR 1 APPLIC TOPICAL (08:21)
[2025-06-23] MEDS: DESENEX/MITRAZOL/ZEASORB 1 APPLIC TOPICAL ×2 (08:21→22:46)
[2025-06-23] MEDS: ALDACTONE 50 MG PO (08:21)
[2025-06-23] MEDS: CATAPRES 0.2 MG PO ×2 (08:21→22:44)
--- NOTE | 2025-06-23 09:20 | CM ---
Addendum entered by Kendra Turner 06/23/25 15:15:
notified Terrie at [facility]
cardiology, neurology consult, us renal artery, mri brain ordered
PT/OT evals today
Addendum entered by Kendra Turner 06/23/25 10:58:
Call from Terrie [phone] from [facility] - accepted
[facility] NPI #: [id number]
Dr. Rodger Lomeli NPI #: [id number]
PT/OT to eval today
PLAN: [facility], ONCE AUTH OBTAINED
Addendum entered by Kendra Turner 06/23/25 10:36:
CM attempted to call at [phone] - unable to reach/call cannot be completed at this time
Original Note:
CM left message with Amber at [facility] [phone], also left message fro Camelia at [facility] [phone] regarding ?acceptance
CM also left message with [facility] at [address] [phone].
Patient IV abx dc
cont with wound care
will need updated PT/OT notes (last 06/20)
PLAN: SNF, pending acceptance, will need insurance auth once bed secured
[2025-06-23] MEDS: DAKIN'S SOLUTION 0.125% 1/4 STRENGTH 473 ML TOPICAL (09:35)
--- NOTE | 2025-06-23 11:46 | CON.NEURO ---
Consultation
Order
Date of Consultation: 06/23/25
Requesting Provider: Luis Stokes MD
Reason for Consult: Persistent headache
Neurology Consultation Note.
HPI: This is a 50-year-old man who presented to [facility] on 04/30/2025 with Right 2nd toe gangrene complicated by sepsis and hypoxemic respiratory failure.
Neurology consultation was requested for admission and management of headache.
According to the patient he developed continuous nonpositional moderate to severe bifrontal dull headache on Monday. No reports of photophobia, phonophobia, nausea, change in vision, strength or sensation.
Review of vital signs was notable for elevated blood pressure up to 189 systolic on 06/20/2025,
PDMP:Oxycodone Hcl (Ir) 5 Mg 28 tablets filled in on 03/20/2025, oxycodone 20 mg 60 tablets filled in on 03/13/2025.
Labs: Normal WBCs, platelets, sodium, creatinine, CK
CT head wo contrast-Ventriculostomy catheter is again seen entering from a right frontal calvarial eve hole extending to the frontal horn of the right lateral ventricle, unchanged in position. Slight decreased size of the right lateral ventricle as
compared to the left is stable and overall ventricles are otherwise within the limits of normal in size. The brainstem and posterior fossa structures demonstrate no significant focal abnormality.
MAR: Oxycodone 5 mg 3 times a day
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
PSH: right 2nd toe amputation(05/09/2025); Irrigation debridement with arthrotomy right septic knee(05/07/2025), R knee arthroplasty (HEAD DOFFER shunt, tracheostomy (deferred)
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
FH: Noncontributory
All: Tramadol, Benadryl, sulfas, Iodine, Corticosteroids, hydroxyzine, Vicodin, penicillins
ROS: Constitutional: Negative. Negative for chills, fever and unexpected weight change.
HENT: Negative for ear pain, hearing loss, tinnitus and trouble swallowing.
Eyes: Negative. Negative for photophobia, pain and visual disturbance.
Respiratory: Negative for cough, choking and shortness of breath.
Cardiovascular: Positive for right leg edema
Gastrointestinal: Negative for abdominal pain and vomiting.
Endocrine: Negative. Negative for cold intolerance.
Genitourinary: Negative for dysuria, flank pain and urgency.
Musculoskeletal: Positive for right knee pain to touch
Skin: Negative for rash.
Allergic/Immunologic: Negative. Negative for immunocompromised state.
Neurological: Positive for headache, right-sided weakness and numbness
General: Well developed. In no acute distress.
Cardio: Regular rate and rhythm without murmur.
Neuro:
Mental Status: Alert, oriented to person, place, and date. Normal attention and recall. Good fund of knowledge. Follows complex requests across the midline. Comprehension, naming, and repetition intact.
Cranial Nerves: Pupils are equally round and reactive to light. EOMs full. Visual coker full to confrontation. R ptosis. No nystagmus. V1-V3 intact to light touch and pinprick bilaterally, symmetric. Right facial weakness normal hearing AU.
The palate elevated well. SCMs and traps 5/5. Tongue midline. No dysarthria.
Motor: Normal bulk and tone. No pronator or arm drift. Strength 5/5 throughout except for right arm< leg paresis. No clonus.
Reflexes: Limited exam due to body habitus and position
Sensory: Absent vibration on the right side
Coordination: No dysmetria or tremor on the left.
Gait: deferred
Assessment and Plan:
I. Likely secondary headache. A headache is a common side effect of the antibiotic Teflaro , occurring in 1% to 10% of patients.
II. History of left basal ganglia ICH/hydrocephalus status post HEAD DOFFER shunt(2023)
III. Polysubstance use disorder.
- Continue Telemetry monitoring
- Avoid medications known to cause headache as a side effect
- Avoid opioids
- Please check magnesium, TFTs
- Consider Depakote if no clinical improvement
- Brain MRI without zandra
- PT.
- DVT prophylaxis.
I personally reviewed all radiology and labs along with past medical records pertinent to current medical problems. Total time spent in patient care is 60 minutes.
Thank you for allowing us to participate in the care of this patient. We will continue to follow. Please do not hesitate to contact us with any questions or concerns.
Subjective/Objective
Subjective Data
Date of Service: June 23, 2025
Objective Data
Vital Signs
Temp Pulse Resp BP Pulse Ox
36.6 C 67 16 158/91 94
06/23/25 08:05 06/23/25 08:05 06/23/25 08:05 06/23/25 08:05 06/23/25 08:31
Lab Results
06/20/25 07:46
06/20/25 10:25
PT 20.0 Sec (11.4-14.6) H 04/30/25 19:46
INR 1.65 04/30/25 19:46
APTT Cancelled 05/04/25 14:45
Sodium 139 mmol/L (135-145) 06/20/25 10:25
Potassium 3.7 mmol/L (3.5-5.1) 06/20/25 10:25
BUN 7 mg/dl (9-20) L 06/20/25 10:25
Glucose 101 mg/dl (70-99) H 06/20/25 10:25
Calcium 9.0 mg/dl (8.4-10.2) 06/20/25 10:25
Phosphorus 3.2 mg/dl (2.5-4.5) 05/03/25 04:25
Ymp-H-Onyrnaobagt Pept 482 pg/ml 05/15/25 05:39
Ur Buprenorphine Negative (Negative) 05/01/25 01:32
Patient Allergies
Iodinated Contrast Media Allergy (Unknown, Verified 05/12/25 15:55)
Nausea / Vomiting
clindamycin Allergy (Verified 04/30/25 16:59)
Unknown
Corticosteroids (Glucocorticoids) Allergy (Verified 04/30/25 16:59)
Unknown
diphenhydramine HCl (From Benadryl) Allergy (Verified 04/30/25 16:59)
Unknown
hydrocodone bitartrate (From Vicodin) Allergy (Verified 04/30/25 22:45)
vomiting
hydroxyzine (Hydroxyzine) Allergy (Verified 04/30/25 16:59)
Unknown
peach Allergy (Verified 04/30/25 16:59)
Tongue Swelling
Penicillins Allergy (Verified 04/30/25 16:59)
Shortness of Breath; tolerated cefepime
sulfamethoxazole (From Bactrim) Allergy (Verified 04/30/25 16:59)
Unknown
tramadol Allergy (Verified 04/30/25 16:59)
'throat swells up'
trimethoprim (From Bactrim) Allergy (Verified 04/30/25 16:59)
Unknown
Medications
-
Active Medications
Generic Name Dose Route Start Last Admin
Trade Name Freq PRN Reason Stop Dose Admin
Acetaminophen 650 mg 05/09/25 13:29 06/19/25 20:27
Acetaminophen (Oral Solution) 650 Mg/20.3 Ml Cup PO 06/27/25 13:28 650 mg
Q4 PRN Administration
mild pain, fever
Carvedilol 25 mg 05/13/25 08:00 06/23/25 08:21
Carvedilol 25 Mg Tablet PO 07/06/25 07:59 25 mg
BID JOJO Administration
Clonidine HCl 0.2 mg 05/09/25 08:00 06/23/25 08:21
Clonidine 0.2 Mg Tablet PO 07/01/25 07:59 0.2 mg
Q12H JOJO Administration
Docusate Sodium 100 mg 05/07/25 20:00 06/23/25 07:22
Docusate Sodium 100 Mg Capsule PO 06/27/25 19:59 Not Given
BID JOJO
Emollient Ointment 0 applic 05/02/25 08:00 06/23/25 08:21
Petrolatum/Mineral Oil (Hydrophor) Oint 100 Gram TOPICAL 06/26/25 07:59 1 applic
DAILY JOJO Administration
Enoxaparin Sodium 40 mg 05/04/25 18:00 06/22/25 16:12
Enoxaparin Sodium 40 Mg/0.4 Ml Syringe SC 06/27/25 17:59 40 mg
QPM JOJO Administration
Ergocalciferol 50,000 units 05/11/25 08:00 06/22/25 09:11
Ergocalciferol (Vitamin D-2) 72239 Units Capsule PO 07/06/25 07:59 50,000 units
Q7D JOJO Administration
Hydralazine HCl 10 mg 06/20/25 17:23
Hydralazine 20 Mg/Ml Vial IV 07/17/25 15:22
Q6HPRN PRN
sbp>160 or dbp>100
Lorazepam 0.5 mg 05/28/25 12:57 06/03/25 01:52
Lorazepam 0.5 Mg Tablet PO 06/25/25 19:59 0.5 mg
BID PRN Administration
angitation or anxiety
Losartan Potassium 100 mg 05/13/25 08:00 06/23/25 08:21
Losartan 100 Mg Tablet PO 07/06/25 07:59 100 mg
DAILY JOJO Administration
Miconazole Nitrate 0 applic 05/01/25 20:00 06/23/25 08:21
Miconazole Powder Bottle TOPICAL 06/26/25 19:59 1 applic
BID JOJO Administration
Nystatin 5 ml 05/03/25 13:00 06/23/25 08:21
Nystatin Oral Suspension 500,000 Units/5 Ml PO 06/26/25 12:59 Not Given
QID JOJO
Ondansetron HCl 4 mg 05/07/25 19:28
Ondansetron 4 Mg/2 Ml Vial IV 06/27/25 19:27
Q6HPRN PRN
nausea/vomiting
Oxycodone HCl 5 mg 06/20/25 12:29 06/23/25 09:35
Oxycodone 5 Mg Regular Release Tablet PO 07/04/25 12:28 5 mg
Q4HPRN PRN Administration
moderate pain
Pantoprazole Sodium 40 mg 05/08/25 08:00 06/23/25 08:21
Pantoprazole 40 Mg Delayed Release Tablet PO 07/01/25 07:59 40 mg
DAILY JOJO Administration
Polyethylene Glycol 17 grams 05/06/25 08:00 06/23/25 07:22
Polyethylene Glycol Powder 17 Grams Packet PO 06/27/25 07:59 Not Given
DAILY JOJO
Sennosides 8.6 mg 05/13/25 20:00 06/23/25 07:22
Sennosides (Senokot) 8.6 Mg Tablet PO 07/06/25 19:59 Not Given
BID JOJO
Sodium Chloride 0 flush 05/01/25 01:00 05/21/25 14:08
Sodium Chloride 0.9% (Flush) Syringe IV 07/18/25 00:59 1 flush
PER PROTOCOL JOJO Administration
Sodium Hypochlorite 0 ml 05/10/25 08:00 06/23/25 09:35
Dakin's Solution 0.125% (1/4 Strength) 473 Ml Bottle TOPICAL 07/01/25 07:59 473 ml
DAILY JOJO Administration
Spironolactone 50 mg 05/11/25 08:00 06/23/25 08:21
Spironolactone 50 Mg Tablet PO 07/06/25 07:59 50 mg
DAILY JOJO Administration
Tizanidine HCl 2 mg 05/05/25 20:58
Tizanidine 2 Mg Tablet PO 06/27/25 20:57
Q6HPRN PRN
restlessness,agitation,anxiety
Home Medications
�Medication �Instructions �Recorded
acetaminophen 500 mg tablet 1,000 mg (2 x 500 mg) PO Q8 PRN 03/06/25
(Tylenol Extra Strength) mild pain #0 tabs
carvedilol 25 mg tablet 25 mg PO BID Blood pressure #0 tabs 03/06/25
losartan 50 mg tablet 100 mg (2 x 50 mg) PO DAILY Blood 03/06/25
pressure #0 tabs
pantoprazole 40 mg tablet,delayed 40 mg PO DAILY Gastrointestinal 03/06/25
release (Protonix) issue #30 tabs
spironolactone 50 mg tablet 50 mg PO DAILY Blood pressure #0 03/06/25
tabs
clonidine HCl 0.1 mg tablet 0.1 mg PO DAILY Blood pressure 04/30/25
lorazepam 0.5 mg tablet 0.5 mg PO BID PRN angitation or 06/09/25
anxiety #4 tabs
Vital Signs and Labs
-
Vital Signs and Labs:
Vital Signs
Temp Pulse Resp BP Pulse Ox
36.6 C 67 16 158/91 94
06/23/25 08:05 06/23/25 08:05 06/23/25 08:05 06/23/25 08:05 06/23/25 08:31
Lab Results
06/20/25 07:46
06/20/25 10:25
PT 20.0 Sec (11.4-14.6) H 04/30/25 19:46
INR 1.65 04/30/25 19:46
APTT Cancelled 05/04/25 14:45
Sodium 139 mmol/L (135-145) 06/20/25 10:25
Potassium 3.7 mmol/L (3.5-5.1) 06/20/25 10:25
BUN 7 mg/dl (9-20) L 06/20/25 10:25
Glucose 101 mg/dl (70-99) H 06/20/25 10:25
Calcium 9.0 mg/dl (8.4-10.2) 06/20/25 10:25
Phosphorus 3.2 mg/dl (2.5-4.5) 05/03/25 04:25
Rge-Q-Ptksyopiman Pept 482 pg/ml 05/15/25 05:39
Ur Buprenorphine Negative (Negative) 05/01/25 01:32
Medications
-
Medications:
Generic Name Dose Route Start Last Admin
Trade Name Freq PRN Reason Stop Dose Admin
Acetaminophen 650 mg 05/09/25 13:29 06/19/25 20:27
Acetaminophen (Oral Solution) 650 Mg/20.3 Ml Cup PO 06/27/25 13:28 650 mg
Q4 PRN Administration
mild pain, fever
Carvedilol 25 mg 05/13/25 08:00 06/23/25 08:21
Carvedilol 25 Mg Tablet PO 07/06/25 07:59 25 mg
BID JOJO Administration
Clonidine HCl 0.2 mg 05/09/25 08:00 06/23/25 08:21
Clonidine 0.2 Mg Tablet PO 07/01/25 07:59 0.2 mg
Q12H JOJO Administration
Docusate Sodium 100 mg 05/07/25 20:00 06/23/25 07:22
Docusate Sodium 100 Mg Capsule PO 06/27/25 19:59 Not Given
BID JOJO
Emollient Ointment 0 applic 05/02/25 08:00 06/23/25 08:21
Petrolatum/Mineral Oil (Hydrophor) Oint 100 Gram TOPICAL 06/26/25 07:59 1 applic
DAILY JOJO Administration
Enoxaparin Sodium 40 mg 05/04/25 18:00 06/22/25 16:12
Enoxaparin Sodium 40 Mg/0.4 Ml Syringe SC 06/27/25 17:59 40 mg
QPM JOJO Administration
Ergocalciferol 50,000 units 05/11/25 08:00 06/22/25 09:11
Ergocalciferol (Vitamin D-2) 70797 Units Capsule PO 07/06/25 07:59 50,000 units
Q7D JOJO Administration
Hydralazine HCl 10 mg 06/20/25 17:23
Hydralazine 20 Mg/Ml Vial IV 07/17/25 15:22
Q6HPRN PRN
sbp>160 or dbp>100
Lorazepam 0.5 mg 05/28/25 12:57 06/03/25 01:52
Lorazepam 0.5 Mg Tablet PO 06/25/25 19:59 0.5 mg
BID PRN Administration
angitation or anxiety
Losartan Potassium 100 mg 05/13/25 08:00 06/23/25 08:21
Losartan 100 Mg Tablet PO 07/06/25 07:59 100 mg
DAILY JOJO Administration
Miconazole Nitrate 0 applic 05/01/25 20:00 06/23/25 08:21
Miconazole Powder Bottle TOPICAL 06/26/25 19:59 1 applic
BID JOJO Administration
Nystatin 5 ml 05/03/25 13:00 06/23/25 08:21
Nystatin Oral Suspension 500,000 Units/5 Ml PO 06/26/25 12:59 Not Given
QID JOJO
Ondansetron HCl 4 mg 05/07/25 19:28
Ondansetron 4 Mg/2 Ml Vial IV 06/27/25 19:27
Q6HPRN PRN
nausea/vomiting
Oxycodone HCl 5 mg 06/20/25 12:29 06/23/25 09:35
Oxycodone 5 Mg Regular Release Tablet PO 07/04/25 12:28 5 mg
Q4HPRN PRN Administration
moderate pain
Pantoprazole Sodium 40 mg 05/08/25 08:00 06/23/25 08:21
Pantoprazole 40 Mg Delayed Release Tablet PO 07/01/25 07:59 40 mg
DAILY JOJO Administration
Polyethylene Glycol 17 grams 05/06/25 08:00 06/23/25 07:22
Polyethylene Glycol Powder 17 Grams Packet PO 06/27/25 07:59 Not Given
DAILY JOJO
Sennosides 8.6 mg 05/13/25 20:00 06/23/25 07:22
Sennosides (Senokot) 8.6 Mg Tablet PO 07/06/25 19:59 Not Given
BID JOJO
Sodium Chloride 0 flush 05/01/25 01:00 05/21/25 14:08
Sodium Chloride 0.9% (Flush) Syringe IV 07/18/25 00:59 1 flush
PER PROTOCOL JOJO Administration
Sodium Hypochlorite 0 ml 05/10/25 08:00 06/23/25 09:35
Dakin's Solution 0.125% (1/4 Strength) 473 Ml Bottle TOPICAL 07/01/25 07:59 473 ml
DAILY JOJO Administration
Spironolactone 50 mg 05/11/25 08:00 06/23/25 08:21
Spironolactone 50 Mg Tablet PO 07/06/25 07:59 50 mg
DAILY JOJO Administration
Tizanidine HCl 2 mg 05/05/25 20:58
Tizanidine 2 Mg Tablet PO 06/27/25 20:57
Q6HPRN PRN
restlessness,agitation,anxiety
Home Medications
-
Home Medications
acetaminophen 500 mg tablet (Tylenol Extra Strength) 1,000 mg (2 x 500 mg) PO Q8 PRN mild pain #0 tabs 03/06/25
carvedilol 25 mg tablet 25 mg PO BID Blood pressure #0 tabs 03/06/25
losartan 50 mg tablet 100 mg (2 x 50 mg) PO DAILY Blood pressure #0 tabs 06/05/25
pantoprazole 40 mg tablet,delayed release (Protonix) 40 mg PO DAILY Gastrointestinal issue #30 tabs 03/06/25
spironolactone 50 mg tablet 50 mg PO DAILY Blood pressure #0 tabs 03/06/25
clonidine HCl 0.1 mg tablet 0.1 mg PO DAILY Blood pressure 04/30/25
lorazepam 0.5 mg tablet 0.5 mg PO BID PRN angitation or anxiety #4 tabs 06/09/25
[2025-06-23] MEDS: APRESOLINE 10 MG IV (12:17)
[2025-06-23 12:27] VITALS: BP 163/100; PULSE 69; O2SAT 95
[2025-06-23 12:30] VITALS: BP 163/100; PULSE 69; O2SAT 95
--- NOTE | 2025-06-23 12:55 | W.PN.CD ---
Addendum entered and electronically signed by Nestor Mistry MD 06/23/25 14:36:
I saw and examined the patient.
The [employer]'s note was reviewed and I agree with the note.
Comment:
50-year-old man with opioid use disorder, CVA, and multidrug hypertension who presented with complicated MRSA bacteremia, now off of antibiotics. Cardiology is consulted for difficult to control hypertension. He is currently on losartan 100 mg
daily, spironolactone 50 mg daily, carvedilol 25 mg twice daily, and clonidine 0.2 mg twice daily with IV hydralazine as needed.
At time of my exam, he had recently received IV hydralazine and BP was 138/70.
Physical exam otherwise notable for RRR, no murmurs, clear lungs, no significant lower extremity edema
For his hypertension, please ensure we are checking a cuff pressure on his upper arm NOT forearm. Continue current antihypertensive regimen and add nifedipine 30 mg daily. He has a sulfa allergy so is unable to take thiazide diuretics. Follow-up
renal artery ultrasound. Consider renin/aldosterone levels as an outpatient but MRA will need to be held. We will follow along with you.
Original Note:
Today's Communication / Plan
-
Re-consulted for hypertension management.
Interim notes reviewed
Renal artery ultrasound
Start nifedipine 30 mg daily
Impression / Plan
-
I/P: 50M with opioid use disorder, CVA (right hemiplegia), and hypertension who presented to the ER 04/30/2025 with a chief complaint of shortness of breath. Cardiology consult for MRSA bacteremia.
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
Multidrug-resistant hypertension
- Currently on: Losartan 100 mg, spironolactone 50 mg, carvedilol 25 mg BID, and clonidine 0.2mg BID
- Start nifedipine 30 mg
- Renal artery US
Septic shock, MRSA bacteremia
- Completed intravenous antibiotics, last day 06/22/2025, ID following
Acute hypoxic respiratory failure, VDRF
- Self extubated 05/05/2025
- No PE on CT
- Significant lung disease per pulmonary
SINDY, resolved
- Was briefly on CRRT
- Renal ultrasound unremarkable nephrology following
Opioid abuse
- UDS positive for fentanyl, benzodiazepines, amphetamines, and methamphetamines at admission
Prior CVA, left thalamic bleed with right hemiaplasia
Right second toe infection, gangrene
Obesity, BMI 31.5, he would benefit from weight loss
Current smoker, full cessation recommended.
Physical Exam
Vital Signs/Labs
Vital Signs
Temp Pulse Resp BP Pulse Ox
97.8 F 67 16 164/100 94
06/23/25 08:05 06/23/25 08:05 06/23/25 08:05 06/23/25 12:17 06/23/25 08:31
06/22/25 06/23/25 06/24/25
06:59 06:59 06:59
Actual Weight 114.475 kg 114.4 kg
06/20/25 07:46
06/20/25 10:25
PT 20.0 Sec (11.4-14.6) H 04/30/25 19:46
INR 1.65 04/30/25 19:46
APTT Cancelled 05/04/25 14:45
Magnesium 2.0 mg/dl (1.6-2.3) 05/13/25 05:00
Free T4 1.62 ng/dl (0.78-2.19) 05/01/25 01:17
04/30/25 05/01/25 05/04/25
19:46 03:48 03:13
Qkt-Y-Asiuippiktw Pept [id number]
05/15/25
05:39
Shr-U-Udaufddbbll Pept 482
Physical Exam
Constitutional: No acute distress and Comfortable
EENT: Anicteric and Moist mucous membranes
Cardiovascular: Rhythm & rate is regular, Pedal edema is absent and S1S2 is normal
Respiratory: Respiratory effort normal and Lungs clear to auscul.
GI: Soft, Distention absent, Flat, Non tender and Normal bowel sounds
Neuro/Psych: Alert
Other: Skin (warm and dry)
Data Reviewed
-
Date of Service: June 23, 2025
X-Ray/CT/US/MRI/NUC/PET: Other (Ordered by me)
Labs: Labs Reviewed by me
Old Records: Reviewed
--- NOTE | 2025-06-23 13:59 | W.PN.ID1 ---
Date of Service
Date of Service: June 23, 2025
Today's Communication
Observe off antibiotics.
Assessment / Plan
Sustained (04/30 - 05/09) complicated MRSA bacteremia
- Blood cultures clear as of 05/11/2025
Pulmonary septic emboli
Cavitary MRSA PNA
Right knee septic arthritis
- s/p washout 05/07. Cultures with MRSA
Right thigh & calf necrotizing soft tissue infection
Right second toe infection/gangrene/osteomyelitis; s/p amputation
Fever - resolved
Leukocytosis - stable
BURRIS
s/p Hypoxemic respiratory failure, self extubated 05/05
SINDY; resolved
Substance abuse (UDS with fentanyl, amphetamine, methamphetamine, benzodiazepine)
Hx CVA (thalamic bleed) with right hemiplegia
Chronic back pain
Recommendations:
Sputum cx: MRSA
Blood cx's negative 05/11 forward
05/06 R knee fluid: 41,220 WBC, 54% polys, neg crystals.
Synovial cx : MRSA
05/07/25 - s/p washout of R knee (+PUS). Cx MRSA
05/07/25 - s/p I+D right thigh and calf. Cx MRSA
05/09/25 s/p R 2nd toe amputation
Patient completed course of ceftaroline yesterday. He has noted ongoing headaches which may be due to ceftaroline, but previously noted more in the pediatric population. Continue to follow. If headaches persist, may require evaluation of WOOL WASHING MACHINE OPERATOR
shunt. No current nuchal rigidity.
Observe off antibiotics.
����������������������������������������������������������
Chief Complaint
-: Clinical Sepsis, Pneumonia and Bacteremia
Subjective / Review of Systems
Patient seen and examined. Overall feels well, although notes headache.
Review of Systems: No Fever and No Chills
Vital Signs / Physical Exam
Vital Signs
Vital Signs
Temp Pulse Resp BP Pulse Ox
97.8 F 67 16 164/100 94
06/23/25 08:05 06/23/25 08:05 06/23/25 08:05 06/23/25 12:17 06/23/25 08:31
Physical Exam
Constitutional: No Acute Distress, Comfortable, Chronically Ill and Non-toxic
Cardiovascular: S1/S2; Negative S3/S4
Pulmonary: Non Labored
Gastrointestinal: Non Distended
Extremities: Edema, Venous Insufficiency (Bilateral lower extremities) and Other (LE stasis dermatitis)
Wound: Other (Incisional knee wound - C/D/I and essentially healed with a few crusts. Right thigh wound with granular base. No periwound erythema. Right calf wound with granular base. No periwound erythema.)
Neurological: Negative Meningeal Signs (No nuchal rigidity)
Psychological: Calm
Objective Data
Lab Data
Lab Results
06/20/25 07:46
06/20/25 10:25
PT 20.0 Sec (11.4-14.6) H 04/30/25 19:46
INR 1.65 04/30/25 19:46
APTT Cancelled 05/04/25 14:45
Estimated Creat Clear > 125 ml/min 06/20/25 10:25
Lactic Acid 1.9 mmol/L (0.7-2.0) 05/01/25 12:18
Total Bilirubin Cancelled 06/20/25 07:46
AST Cancelled 06/20/25 07:46
ALT Cancelled 06/20/25 07:46
Alkaline Phosphatase Cancelled 06/20/25 07:46
Most recent labs reviewed.
Micro Results:
05/16/25 04:52 Blood Culture - Final
Blood/Venous No Growth - Final Report
05/15/25 05:39 Blood Culture - Final
Blood/Venous No Growth - Final Report
05/14/25 03:20 Blood Culture - Final
Blood/Venous No Growth - Final Report
05/13/25 09:45 Blood Culture - Final
Blood/Venous No Growth - Final Report
05/12/25 05:34 Blood Culture - Final
Blood/Venous No Growth - Final Report
05/11/25 12:40 Blood Culture - Final
Blood/Venous No Growth - Final Report
05/09/25 04:01 Blood Culture - Final
Blood/Venous Staph aureus MRSA
Gram Stain - Final
05/08/25 04:21 Blood Culture - Final
Blood/Venous Staph aureus MRSA
Gram Stain - Final
05/07/25 04:55 Blood Culture - Final
Blood/Venous Staph aureus MRSA
Gram Stain - Final
05/06/25 08:16 Blood Culture - Final
Blood/Venous Staph aureus MRSA
Gram Stain - Final
05/07/25 18:35 Wound Culture - Final
Knee - Right Staph aureus MRSA
Gram Stain - Final
05/07/25 18:35 Anaerobic Culture - Final
Knee - Right NO ANAEROBES ISOLATED
05/07/25 18:35 Wound Culture - Final
Leg - Right Staph aureus MRSA
Gram Stain - Final
05/07/25 18:35 Anaerobic Culture - Final
Leg - Right NO ANAEROBES ISOLATED
05/05/25 03:34 Blood Culture - Final
Blood/Venous No Growth - Final Report
05/03/25 04:25 Blood Culture - Final
Blood/Venous Staph aureus MRSA
Gram Stain - Final
05/02/25 03:16 Blood Culture - Final
Blood/Venous Staph aureus MRSA
Gram Stain - Final
05/04/25 03:13 Blood Culture - Final
Blood/Venous No Growth - Final Report
05/06/25 13:19 Body Fluid Culture - Final
Synovial Fluid Staph aureus MRSA
Gram Stain - Final
04/30/25 19:46 Blood Culture - Final
Blood/Venous Staph aureus MRSA
Gram Stain - Final
05/04/25 09:25 Respiratory Culture - Final
Endotracheal Staph aureus MRSA
Gram Stain - Final
05/01/25 17:45 Blood Culture - Final
Blood/Venous Staph aureus MRSA
Gram Stain - Final
04/30/25 19:46 Blood Culture - Final
Blood/Venous Staph aureus MRSA
Gram Stain - Final
05/01/25 01:32 Urine Culture - Final
Urine Yeast
05/01/25 01:17 Blood Parasites Smear - Final
Blood/Venous
04/30/25 23:02 Influenza Types A & B (GIORGIO) - Final
Nasal Swab Negative for Influenza A & B, NAAT
Negative results must be combined with clinical observations
and patient history.
Nucleic Acid Amplification test (NAAT)performed on the
[employer] platform.
Imaging:
05/27/2025 CT chest without contrast: overall decreased bilateral consolidation. Decreased or unchanged size of bilateral nodules and cavitary lesions, with decreased wall thickening of the cavitary lesions. Small bilateral pleural effusions noted,
decreased on the right and unchanged on the left. No abnormally enlarged mediastinal lymph nodes identified. No pericardial effusion. Please see full dictation for additional detail.
05/16/2025 CXR (portable): extensive heterogeneous opacities bilaterally. A 6.2 cm cavitary right lower lobe lesion again noted. No pneumothorax or pleural effusion. Mild cardiac enlargement.
05/12/2025 CXR (portable): improved aeration of the right upper lung compared to prior days imaging. Otherwise, extensive diffuse bilateral patchy, nodular and confluent airspace opacities.
05/02/25 CT RLE: Subcutaneous stranding within the soft tissues of the anterior right thigh, and [id number] anterior soft tissues. No drainable abscess is appreciated. Moderate suprapatellar joint effusion, with areas of loculation.
05/01/2025 ECHO (TTE): EF 55%. Normal biventricular size and systolic function. No significant valvular disease. No obvious vegetations.
05/01/2025 CXR (portable): bilateral interstitial and airspace disease noted which may reflect pulmonary edema or pneumonia. Small bilateral pleural effusions noted. Please see full dictation for additional detail.
05/01/2025 Abdominal x-ray. Enteric tube noted in stomach.
05/01/2025 Renal ultrasound: unremarkable renal ultrasound without hydronephrosis, contour deforming solid renal mass or echogenic shadowing foci to suggest renal calculi. Bilateral pleural effusions noted.
05/01/2025 Duplex ultrasound lower extremity: no evidence of DVT in the bilateral lower extremities
04/30/2025 X-ray right foot: soft tissue injury versus ulceration involving the second digit with soft tissue swelling. The cortex of the distal phalanx is indistinct and the possibility of osteomyelitis cannot be excluded. There is soft tissue
swelling of the first digit. No radiographic evidence to suggest osteomyelitis. Please see full dictation for additional detail.
[2025-06-23 14:15] VITALS: BP 138/70
[2025-06-23] MEDS: PROCARDIA XL (EXTENDED RELEASE) 30 MG PO (14:41)
[2025-06-23 15:11] LABS: Magnesium 1.4 mg/dl (1.6-2.3)
[2025-06-23 15:48] VITALS: BP 145/86
[2025-06-23] MEDS: MAGNESIUM SULFATE 102 GRAMS IV (17:43)
[2025-06-23] MEDS: LOVENOX 40 MG SC (17:44)
--- NOTE | 2025-06-23 18:31 | PTCARENOTE ---
Pt with persistent headache. Had elevated BP of 163/100 taken twice. PRN medication given, see EUNICE. made aware, pt with consults for neurology and cardiology. Pt put on tele box #5 for monitoring as ordered. NSR on monitor. Plan of care
continuing, pt with no current complaints.
[2025-06-23 23:25] VITALS: BP 141/80
[2025-06-24] MEDS: ROXICODONE 5 MG PO ×3 (02:31→10:33)
[2025-06-24 02:34] VITALS: BP 121/71
[2025-06-24 06:00] VITALS: BMI 31.4
[2025-06-24 06:44] LABS: Hematocrit 33.2 % (39.0-52.0); Hemoglobin 10.7 g/dL (13.0-18.0); Mean Corp Hgb Conc. 32.2 g/dL (33.0-37.0); Mean Corpuscular Volume 84.7 fL (80.0-94.0); Nucleated Red Blood Cells % 0 % (-); Platelet Count 304 10^3/uL (130-400); Red Cell Dist. Width 16.0 % (11.5-14.5)
[2025-06-24 07:14] VITALS: BP 142/79
[2025-06-24 07:19] LABS: Blood Urea Nitrogen 10 mg/dl (9-20); Calcium 9.3 mg/dl (8.4-10.2); Carbon Dioxide 29 mmol/L (22-30); Chloride 104 mmol/L (98-107); Estimated Creatinine Clearance > 125 ml/min; Glucose 99 mg/dl (70-99); Potassium 3.8 mmol/L (3.5-5.1); Sodium 138 mmol/L (135-145); eGFR > 60.00
--- NOTE | 2025-06-24 07:47 | W.PN.CD ---
Today's Communication / Plan
-
Cont meds
Can uptitrate NIfedipine as needed
We will sign off pls call with questions
Impression / Plan
-
I/P: 50M with opioid use disorder, CVA (right hemiplegia), and hypertension who presented to the ER 04/30/2025 with a chief complaint of shortness of breath. Cardiology consult for MRSA bacteremia.
Outpatient marketing campaign analyst: Unknown
Multidrug-resistant hypertension
- Currently on: Losartan 100 mg, spironolactone 50 mg, carvedilol 25 mg BID, and clonidine 0.2mg BID
- Start nifedipine 30 mg
- Renal artery US
- BP improved
Septic shock, MRSA bacteremia
- Completed intravenous antibiotics, last day 06/22/2025, ID following
Acute hypoxic respiratory failure, VDRF
- Self extubated 05/05/2025
- No PE on CT
- Significant lung disease per pulmonary
SINDY, resolved
- Was briefly on CRRT
- Renal ultrasound unremarkable nephrology following
Opioid abuse
- UDS positive for fentanyl, benzodiazepines, amphetamines, and methamphetamines at admission
Prior CVA, left thalamic bleed with right hemiaplasia
Right second toe infection, gangrene
Obesity, BMI 31.5, he would benefit from weight loss
Current smoker, full cessation recommended.
Subjective: No new complaints today; says he has slight BURRIS
Physical Exam
Vital Signs/Labs
Vital Signs
Temp Pulse Resp BP Pulse Ox
97.9 F 70 18 142/79 94
06/24/25 07:14 06/24/25 07:14 06/24/25 07:14 06/24/25 07:14 06/24/25 07:14
06/23/25 06/24/25 06/25/25
06:59 06:59 06:59
Actual Weight 252 lb 3.341 oz 251 lb 1.704 oz
06/24/25 06:08
06/24/25 06:08
PT 20.0 Sec (11.4-14.6) H 04/30/25 19:46
INR 1.65 04/30/25 19:46
APTT Cancelled 05/04/25 14:45
Magnesium 1.4 mg/dl (1.6-2.3) L 06/23/25 13:55
Free T4 1.62 ng/dl (0.78-2.19) 05/01/25 01:17
04/30/25 05/01/25 05/04/25
19:46 03:48 03:13
Pet-U-Eisxxgydrju Pept 161 500 [id number]
05/15/25
05:39
Bno-L-Ozhpygmufnm Pept 482
Physical Exam
Constitutional: No acute distress and Comfortable
EENT: Anicteric
Cardiovascular: Rhythm & rate is regular
Respiratory: Respiratory effort normal and Lungs clear to auscul.
GI: Soft
Neuro/Psych: AO x 3
Data Reviewed
-
Date of Service: June 24, 2025
Medical Decision Making: Reviewed Test Results
EKG: Tracing Personally Visualized and interpreted (sr)
Echo: Report Reviewed by me
Labs: Labs Reviewed by me
--- NOTE | 2025-06-24 09:01 | CM ---
Addendum entered by Kendra Turner 06/25/25 08:33:
late note: spoke with daughter Any last evening - she was going to speak with her dad reinforcing not going to her home post SNF. 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
her know previous referral sent he was declined. She will get back to CM
Addendum entered by Kendra Turner 06/24/25 11:19:
Received TC from patient daughter Any who stated that patient cannot go to her home after rehab. She stated she has 2 children of her own and had adopted his four children.
CHUN called Terrie at [facility] & she states she will have to check with her supervisor poultry farm if she can accept patient or if she even has any computer terminal operator care beds. She will call back CM.
Original Note:
neurology/cardiology consulted
Spoke to Spring Marques ([phone]), [facility] Triage Frame And Scrap Crusher-stated he is still open with [facility]. Updated Spring on accepted SNF [facility] post discharge from hospital. patient reports he will then stay
with his daughter Any in [place] after SNF.
CHUN also spoke with his Service Coor., Stephanie Cedeño ([phone]), who has been the new service station equipment mechanic following this patient as an outpt. she states she will need confirm with her supervisor poultry farm Saritha Cope to confirm still open with
these services. provided her with patient katia Agarwal's phone #. Stephanie will get back to CM
CHUN left message with katia Agarwal again yesterday [phone] - she did call back after hours & left message. CHUN returned call to her this morning and left her a message.
Terrie Glaze Wiper [phone] from [facility] - accepted
[facility] NPI #: [id number]
Dr. Rodger Lomeli NPI #: [id number]
PT/OT eval yesterday-SNF
PLAN: [facility] when stable, ONCE AUTH OBTAINED
[2025-06-24] MEDS: PROCARDIA XL (EXTENDED RELEASE) 30 MG PO (10:21)
[2025-06-24] MEDS: MYCOSTATIN ORAL SUSPENSION PO ×5 (10:21→21:02)
[2025-06-24] MEDS: PROTONIX 40 MG PO (10:21)
[2025-06-24] MEDS: ALDACTONE 50 MG PO (10:21)
[2025-06-24] MEDS: CATAPRES 0.2 MG PO ×2 (10:21→21:01)
[2025-06-24] MEDS: COZAAR 100 MG PO (10:22)
[2025-06-24] MEDS: COREG 25 MG PO ×2 (10:22→20:57)
[2025-06-24] MEDS: COLACE PO ×2 (10:25→21:02)
[2025-06-24] MEDS: SENOKOT PO ×2 (10:26→21:02)
[2025-06-24] MEDS: HYDROPHOR 1 APPLIC TOPICAL (10:26)
[2025-06-24] MEDS: DESENEX/MITRAZOL/ZEASORB 1 APPLIC TOPICAL (10:27)
[2025-06-24] MEDS: DAKIN'S SOLUTION 0.125% 1/4 STRENGTH 473 ML TOPICAL (10:27)
[2025-06-24] MEDS: MIRALAX PO (10:28)
[2025-06-24 11:08] VITALS: BP 140/81
--- NOTE | 2025-06-24 11:24 | W.PN.HOSP.TC ---
Today's Communication/Plan
-
Topamax. MRI. Discharge planning
Assessment / Plan
Assessment / Plan
Physical exam:
General: Acute and chronically ill
HEENT: Normocephalic, Atraumatic and Moist Mucous Membranes
Respiratory: Clear to Auscultation; Negative Wheezes, Rales or Rhonchi
Cardiac: Regular Rhythm and S1/S2
GI: Soft, Nontender and Nondistended
Musculoskeletal: No Clubbing, No Cyanosis and No Edema
Neuro: Awake, Alert and Oriented, no neurological deficit
Psych: Calm
A/P:
Mr. Patrice Mera is a 50 yo man with hx polysubstance abuse, prior CVA (thalamic bleed; right hemiplegia), essential HTN, admitted 04/30 with septic shock 2/2 MRSA bacteremia, SINDY with anion gap metabolic acidosis and hypoxemic respiratory failure.
He is found to have septic joint right knee and development of necrotizing fasciitis.
#Persistent headache
Improving
Discussed with neurology recommend to start Topamax and stop oxycodone.
Waiting for MRI of the brain-discussed with radiology and they are not sure if able to be done as inpatient so they will get back to me.
#Resistant hypertension
Improving
Cardiology input appreciated and they signed off today
Renal Doppler inconclusive but overall negative
Continue current regimen
#Acute respiratory failure, VDRF
-off of O2
-CT scan of the chest 05/27 shows stability
- Labs repeated 06/20 unremarkable; normal CPK
prior to today:
-patient was intubated on admission for multiple reasons in setting of septic shock, pneumonia, septic emboli
-CTA without PE
-s/p self extubation on 05/05
-CT Chest -noted with bilateral cavitary nodules -repeat chest CT next week to follow on it
-Methylprednisolone 40 mg IV daily started on 05/11/25 per pulmonary-getting switched to oral prednisone for 5 days-last day 05/20.
#MRSA Bacteremia
Surveillance blood cultures are negative
Continue antibiotics per ID-on ceftaroline and daptomycin - last day 06/22/25
CMP and CPK are ok
prior to today:
Septic Shock - patient was on Levo, Vaso, Epi, Giapreza; remains off pressors
Septic Arthritis Right Knee
Necrotizing Fasciitis right medial thigh and calf
- JEAN 05/06 without e/o vegetation
- Right knee joint aspirate positive for MRSA 05/06
- Exam 05/07 with new concern for necrotizing fasciitis right medial thigh and calf Daily wound care and packing-of the 2 wounds
- Appreciate general surgery and ortho, patient is s/p I&D of necrotizing soft tissue infection and washout right knee on 05/07/25
- 05/07 antibiotics changed to IV Daptomycin Teflaro started on 05/11/2025
- Last positive Blood cultures from 05/09, negative since 05/11/25.
-Blood pressure stable. White count improving -follow for now
#Right second toe infection Gangrene
- stable
prior to today:
-Appreciate ID and Podiatry
-Antibiotics as above
-Arterial US with multiphasic waveforms
-Wound care Betadine soaked gauze to toe - change every day
-S/P Right 2nd toe amputation secondary to gangrenous changes with exposed bone 05/09/25
# Acute kidney injury - ATN in setting of septic shock
Cr stable
prior to today:
Metabolic Acidosis Resolved
-Patient briefly required CRRT but could not tolerate long
-Ultrasound of the kidneys without obstruction
-Appreciate Renal
-SINDY now resolved
-Cheng discontinued on 05/06
- Creatinine stable
# Anemia secondary to acute illness. H&H stable
# Thrombocytosis secondary to infection-resolved
# Anasarca
# Hypoalbuminemia
# Drug abuse urine drug screen positive for Fentanyl, Benzos, Amphetamines and Methamphetamines
Decreased oxycodone from 20 to 10 and from 10 to 5 and space out Ativan from q 4 hr to bid as needed and tolerating well
prior to today:
Patient was discharged to a rehab last admission however he stayed there only for 2 days and signed himself out
# Multidrug resistant hypertension-
Elevated readings since 06/19 associated with headache. Unclear why new elevation. CT head shows BEHAVIORAL HEALTH CONSULTANT shunt in place and no evidence of acute intracranial findings. Overall ventricles are within the limits of normal in size. Is mention about
daptomycin causing elevation in blood pressure. Do not know why it has to be now. Discussed with ID who said if persistent elevation we could stop daptomycin early. He is due to stop antibiotics tomorrow. Continue with as needed hydralazine and
if persistent elevations may be add Norvasc to his regimen.
Improved blood pressure readings now.
Patient still with headaches. Will watch today with improved blood pressure and if still persistent consult neurology
prior to today:
Patient was on Coreg, losartan, clonidine, Aldactone as outpatient.
- Patient back on clonidine, spironolactone, losartan, Coreg.
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 Transferred to [place] . Pt says he was there for 3 months and has weakness of right side and facial droop.
stable
prior to today:
s/p BEHAVIORAL HEALTH CONSULTANT shunt at [place]
*confirmed cannot get MRI here given shunt
#Vitamin D deficiency-continue replacement
#Chronic back pain
#Morbid obesity with a BMI of 35- Weight loss recommended
#History of nephrolithiasis
#Possible sleep apnea-needs outpatient study as OP.
#ADHD
#Hepatic steatosis per prior imaging-outpatient follow-up
#Active smoker-cessation counseling when able
#DVT prophylaxis-Lovenox
#Full code
Antibiotic regimen completed.
Total time spent on today's encounter was 37 minutes which included time spent in counseling the patient/family regarding diagnosis and treatment plan as listed above, goals of care, and symptom management. Case was discussed with nursing staff,
specialists, and care coordinators/case management. All labs and imaging personally reviewed by me. Remainder the time spent in detailed review of previous records, lab data, imaging, and other medical provider documentation.
Anticipated Discharge: Within 24 hours
Subjective/Interval History
-
Date of Service: June 24, 2025
Patient states the headache is better. No chest pain no shortness of breath. Afebrile
Objective Data
-
Labs:
Laboratory Results
06/24/25
06:08
WBC 7.2
Hgb 10.7 L
Hct 33.2 L
Plt Count 304
Sodium 138
Potassium 3.8
Chloride 104
Carbon Dioxide 29
BUN 10
Creatinine 0.6 L
Glucose 99
Calcium 9.3
Vital Signs:
Vital Signs
Temp Pulse Resp BP Pulse Ox
97.5 F 65 18 140/81 97
06/24/25 11:08 06/24/25 11:08 06/24/25 11:08 06/24/25 11:08 06/24/25 11:08
I&O
06/23/25 06/24/25 06/25/25
06:59 06:59 06:59
Intake Total 890 / 890 1200 / 1200
Output Total 1500 / 1500 1350 / 1350
Balance -610 / -610 -150 / -150
[2025-06-24 12:20] LABS: Magnesium 1.6 mg/dl (1.6-2.3)
[2025-06-24] MEDS: TOPAMAX 25 MG PO (12:24)
--- NOTE | 2025-06-24 14:29 | W.PN.ID1 ---
Date of Service
Date of Service: June 24, 2025
Today's Communication
Observe off abx.
Assessment / Plan
Sustained (04/30 - 05/09) complicated MRSA bacteremia
- Blood cultures clear as of 05/11/2025
Pulmonary septic emboli
Cavitary MRSA PNA
Right knee septic arthritis
- s/p washout 05/07. Cultures with MRSA
Right thigh & calf necrotizing soft tissue infection
Right second toe infection/gangrene/osteomyelitis; s/p amputation
Fever - resolved
Leukocytosis - stable
BURRIS
s/p Hypoxemic respiratory failure, self extubated 05/05
SINDY; resolved
Substance abuse (UDS with fentanyl, amphetamine, methamphetamine, benzodiazepine)
Hx CVA (thalamic bleed) with right hemiplegia
Chronic back pain
Recommendations:
Sputum cx: MRSA
Blood cx's negative 05/11 forward
05/06 R knee fluid: 41,220 WBC, 54% polys, neg crystals.
Synovial cx : MRSA
05/07/25 - s/p washout of R knee (+PUS). Cx MRSA
05/07/25 - s/p I+D right thigh and calf. Cx MRSA
05/09/25 s/p R 2nd toe amputation
Patient completed course of ceftaroline. He has noted ongoing headaches which may be due to ceftaroline, but previously noted more in the pediatric population. Continue to follow. If headaches persist, may require evaluation of RPG PROGRAMMER shunt. No
current nuchal rigidity.
Observe off antibiotics.
����������������������������������������������������������
Chief Complaint
-: Clinical Sepsis, Pneumonia and Bacteremia
Subjective / Review of Systems
Review of Systems: No Fever and No Chills
Vital Signs / Physical Exam
Vital Signs
Vital Signs
Temp Pulse Resp BP Pulse Ox
97.5 F 65 18 140/81 97
06/24/25 11:08 06/24/25 11:08 06/24/25 11:08 06/24/25 11:08 06/24/25 11:08
Physical Exam
Constitutional: No Acute Distress, Comfortable, Chronically Ill and Non-toxic
Cardiovascular: S1/S2; Negative S3/S4
Pulmonary: Non Labored
Gastrointestinal: Non Distended
Extremities: Edema, Venous Insufficiency (Bilateral lower extremities) and Other (LE stasis dermatitis)
Wound: Other (Incisional knee wound - C/D/I and essentially healed with a few crusts. Right thigh wound with granular base. No periwound erythema. Right calf wound with granular base. No periwound erythema.)
Neurological: Negative Meningeal Signs (No nuchal rigidity)
Psychological: Calm
Objective Data
Lab Data
Lab Results
06/24/25 06:08
06/24/25 06:08
PT 20.0 Sec (11.4-14.6) H 04/30/25 19:46
INR 1.65 04/30/25 19:46
APTT Cancelled 05/04/25 14:45
Estimated Creat Clear > 125 ml/min 06/24/25 06:08
Lactic Acid 1.9 mmol/L (0.7-2.0) 05/01/25 12:18
Total Bilirubin Cancelled 06/20/25 07:46
AST Cancelled 06/20/25 07:46
ALT Cancelled 06/20/25 07:46
Alkaline Phosphatase Cancelled 06/20/25 07:46
Most recent labs reviewed.
Micro Results:
05/16/25 04:52 Blood Culture - Final
Blood/Venous No Growth - Final Report
05/15/25 05:39 Blood Culture - Final
Blood/Venous No Growth - Final Report
05/14/25 03:20 Blood Culture - Final
Blood/Venous No Growth - Final Report
05/13/25 09:45 Blood Culture - Final
Blood/Venous No Growth - Final Report
05/12/25 05:34 Blood Culture - Final
Blood/Venous No Growth - Final Report
05/11/25 12:40 Blood Culture - Final
Blood/Venous No Growth - Final Report
05/09/25 04:01 Blood Culture - Final
Blood/Venous Staph aureus MRSA
Gram Stain - Final
05/08/25 04:21 Blood Culture - Final
Blood/Venous Staph aureus MRSA
Gram Stain - Final
05/07/25 04:55 Blood Culture - Final
Blood/Venous Staph aureus MRSA
Gram Stain - Final
05/06/25 08:16 Blood Culture - Final
Blood/Venous Staph aureus MRSA
Gram Stain - Final
05/07/25 18:35 Wound Culture - Final
Knee - Right Staph aureus MRSA
Gram Stain - Final
05/07/25 18:35 Anaerobic Culture - Final
Knee - Right NO ANAEROBES ISOLATED
05/07/25 18:35 Wound Culture - Final
Leg - Right Staph aureus MRSA
Gram Stain - Final
05/07/25 18:35 Anaerobic Culture - Final
Leg - Right NO ANAEROBES ISOLATED
05/05/25 03:34 Blood Culture - Final
Blood/Venous No Growth - Final Report
05/03/25 04:25 Blood Culture - Final
Blood/Venous Staph aureus MRSA
Gram Stain - Final
05/02/25 03:16 Blood Culture - Final
Blood/Venous Staph aureus MRSA
Gram Stain - Final
05/04/25 03:13 Blood Culture - Final
Blood/Venous No Growth - Final Report
05/06/25 13:19 Body Fluid Culture - Final
Synovial Fluid Staph aureus MRSA
Gram Stain - Final
04/30/25 19:46 Blood Culture - Final
Blood/Venous Staph aureus MRSA
Gram Stain - Final
05/04/25 09:25 Respiratory Culture - Final
Endotracheal Staph aureus MRSA
Gram Stain - Final
05/01/25 17:45 Blood Culture - Final
Blood/Venous Staph aureus MRSA
Gram Stain - Final
04/30/25 19:46 Blood Culture - Final
Blood/Venous Staph aureus MRSA
Gram Stain - Final
05/01/25 01:32 Urine Culture - Final
Urine Yeast
05/01/25 01:17 Blood Parasites Smear - Final
Blood/Venous
04/30/25 23:02 Influenza Types A & B (GIORGIO) - Final
Nasal Swab Negative for Influenza A & B, NAAT
Negative results must be combined with clinical observations
and patient history.
Nucleic Acid Amplification test (NAAT)performed on the
[employer] platform.
Imaging:
05/27/2025 CT chest without contrast: overall decreased bilateral consolidation. Decreased or unchanged size of bilateral nodules and cavitary lesions, with decreased wall thickening of the cavitary lesions. Small bilateral pleural effusions noted,
decreased on the right and unchanged on the left. No abnormally enlarged mediastinal lymph nodes identified. No pericardial effusion. Please see full dictation for additional detail.
05/16/2025 CXR (portable): extensive heterogeneous opacities bilaterally. A 6.2 cm cavitary right lower lobe lesion again noted. No pneumothorax or pleural effusion. Mild cardiac enlargement.
05/12/2025 CXR (portable): improved aeration of the right upper lung compared to prior days imaging. Otherwise, extensive diffuse bilateral patchy, nodular and confluent airspace opacities.
05/02/25 CT RLE: Subcutaneous stranding within the soft tissues of the anterior right thigh, and [id number] anterior soft tissues. No drainable abscess is appreciated. Moderate suprapatellar joint effusion, with areas of loculation.
05/01/2025 ECHO (TTE): EF 55%. Normal biventricular size and systolic function. No significant valvular disease. No obvious vegetations.
05/01/2025 CXR (portable): bilateral interstitial and airspace disease noted which may reflect pulmonary edema or pneumonia. Small bilateral pleural effusions noted. Please see full dictation for additional detail.
05/01/2025 Abdominal x-ray. Enteric tube noted in stomach.
05/01/2025 Renal ultrasound: unremarkable renal ultrasound without hydronephrosis, contour deforming solid renal mass or echogenic shadowing foci to suggest renal calculi. Bilateral pleural effusions noted.
05/01/2025 Duplex ultrasound lower extremity: no evidence of DVT in the bilateral lower extremities
04/30/2025 X-ray right foot: soft tissue injury versus ulceration involving the second digit with soft tissue swelling. The cortex of the distal phalanx is indistinct and the possibility of osteomyelitis cannot be excluded. There is soft tissue
swelling of the first digit. No radiographic evidence to suggest osteomyelitis. Please see full dictation for additional detail.
Care Review
Plan reviewed with: Physician (Hospitalist)
[2025-06-24 14:59] VITALS: BP 107/60
[2025-06-24] MEDS: ROXICODONE 2.5 MG PO ×2 (16:20→21:06)
[2025-06-24] MEDS: LOVENOX 40 MG SC (18:06)
[2025-06-24 19:49] VITALS: BP 139/81
[2025-06-24] MEDS: TOPAMAX PO (21:02)
[2025-06-24] MEDS: DESENEX/MITRAZOL/ZEASORB TOPICAL (21:02)
[2025-06-24 23:20] VITALS: BP 131/68
[2025-06-25] VITALS (8 sets, daily range): BP systolic 123–146; BP diastolic 72–87; PULSE 77; O2SAT 95; BMI 31.1
[2025-06-25] MEDS: ROXICODONE 2.5 MG PO ×5 (02:59→22:12)
[2025-06-25] MEDS: SENOKOT PO ×2 (07:43→20:44)
[2025-06-25] MEDS: MYCOSTATIN ORAL SUSPENSION PO ×4 (07:43→21:02)
[2025-06-25] MEDS: MIRALAX PO (07:43)
[2025-06-25] MEDS: COLACE PO ×2 (07:43→20:44)
[2025-06-25] MEDS: COREG 25 MG PO ×2 (08:11→20:50)
[2025-06-25] MEDS: ALDACTONE 50 MG PO (08:11)
[2025-06-25] MEDS: COZAAR 100 MG PO (08:11)
[2025-06-25] MEDS: PROTONIX 40 MG PO (08:11)
[2025-06-25] MEDS: PROCARDIA XL (EXTENDED RELEASE) 30 MG PO (08:11)
[2025-06-25] MEDS: CATAPRES 0.2 MG PO ×2 (08:11→20:50)
[2025-06-25] MEDS: DAKIN'S SOLUTION 0.125% 1/4 STRENGTH 473 ML TOPICAL (08:12)
[2025-06-25] MEDS: HYDROPHOR 1 APPLIC TOPICAL (08:12)
[2025-06-25] MEDS: DESENEX/MITRAZOL/ZEASORB 1 APPLIC TOPICAL ×2 (08:12→20:50)
[2025-06-25] MEDS: TOPAMAX PO ×2 (08:13→20:44)
--- NOTE | 2025-06-25 11:13 | W.PN.HOSP.TC ---
Today's Communication/Plan
-
Discharge disposition
Assessment / Plan
Assessment / Plan
Physical exam:
General: Acute and chronically ill
HEENT: Normocephalic, Atraumatic and Moist Mucous Membranes
Respiratory: Clear to Auscultation; Negative Wheezes, Rales or Rhonchi
Cardiac: Regular Rhythm and S1/S2
GI: Soft, Nontender and Nondistended
Musculoskeletal: No Clubbing, No Cyanosis and No Edema
Neuro: Awake, Alert and Oriented, no neurological deficit
Psych: Calm
A/P:
Mr. Patrice Mera is a 50 yo man with hx polysubstance abuse, prior CVA (thalamic bleed; right hemiplegia), essential HTN, admitted 04/30 with septic shock 2/2 MRSA bacteremia, SINDY with anion gap metabolic acidosis and hypoxemic respiratory failure.
He is found to have septic joint right knee and development of necrotizing fasciitis.
#Persistent headache
Relatively stable
Discussed with neurology recommend to start Topamax and stop oxycodone. Patient does not want to start Topamax and wants to be kept on low-dose oxycodone.
Waiting for MRI of the brain-discussed with radiology and they are not sure if able to be done as inpatient so they will get back to me.
#Resistant hypertension
Improving
Cardiology input appreciated and they signed off today
Renal Doppler inconclusive but overall negative
Continue current regimen
#Acute respiratory failure, VDRF
-off of O2
-CT scan of the chest 05/27 shows stability
- Labs repeated 06/20 unremarkable; normal CPK
prior to today:
-patient was intubated on admission for multiple reasons in setting of septic shock, pneumonia, septic emboli
-CTA without PE
-s/p self extubation on 05/05
-CT Chest -noted with bilateral cavitary nodules -repeat chest CT next week to follow on it
-Methylprednisolone 40 mg IV daily started on 05/11/25 per pulmonary-getting switched to oral prednisone for 5 days-last day 05/20.
#MRSA Bacteremia
Surveillance blood cultures are negative
Continue antibiotics per ID-on ceftaroline and daptomycin - last day 06/22/25
CMP and CPK are ok
prior to today:
Septic Shock - patient was on Levo, Vaso, Epi, Giapreza; remains off pressors
Septic Arthritis Right Knee
Necrotizing Fasciitis right medial thigh and calf
- JEAN 05/06 without e/o vegetation
- Right knee joint aspirate positive for MRSA 05/06
- Exam 05/07 with new concern for necrotizing fasciitis right medial thigh and calf Daily wound care and packing-of the 2 wounds
- Appreciate general surgery and ortho, patient is s/p I&D of necrotizing soft tissue infection and washout right knee on 05/07/25
- 05/07 antibiotics changed to IV Daptomycin Teflaro started on 05/11/2025
- Last positive Blood cultures from 05/09, negative since 05/11/25.
-Blood pressure stable. White count improving -follow for now
#Right second toe infection Gangrene
- stable
prior to today:
-Appreciate ID and Podiatry
-Antibiotics as above
-Arterial US with multiphasic waveforms
-Wound care Betadine soaked gauze to toe - change every day
-S/P Right 2nd toe amputation secondary to gangrenous changes with exposed bone 05/09/25
# Acute kidney injury - ATN in setting of septic shock
Cr stable
prior to today:
Metabolic Acidosis Resolved
-Patient briefly required CRRT but could not tolerate long
-Ultrasound of the kidneys without obstruction
-Appreciate Renal
-SINYD now resolved
-Cheng discontinued on 05/06
- Creatinine stable
# Anemia secondary to acute illness. H&H stable
# Thrombocytosis secondary to infection-resolved
# Anasarca
# Hypoalbuminemia
# Drug abuse urine drug screen positive for Fentanyl, Benzos, Amphetamines and Methamphetamines
Decreased oxycodone from 20 to 10 and from 10 to 5 and space out Ativan from q 4 hr to bid as needed and tolerating well
prior to today:
Patient was discharged to a rehab last admission however he stayed there only for 2 days and signed himself out
# Multidrug resistant hypertension-
Elevated readings since 06/19 associated with headache. Unclear why new elevation. CT head shows FLAT LOCK OPERATOR shunt in place and no evidence of acute intracranial findings. Overall ventricles are within the limits of normal in size. Is mention about
daptomycin causing elevation in blood pressure. Do not know why it has to be now. Discussed with ID who said if persistent elevation we could stop daptomycin early. He is due to stop antibiotics tomorrow. Continue with as needed hydralazine and
if persistent elevations may be add Norvasc to his regimen.
Improved blood pressure readings now.
Patient still with headaches. Will watch today with improved blood pressure and if still persistent consult neurology
prior to today:
Patient was on Coreg, losartan, clonidine, Aldactone as outpatient.
- Patient back on clonidine, spironolactone, losartan, Coreg.
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 Transferred to [facility] . Pt says he was there for 3 months and has weakness of right side and facial droop.
stable
prior to today:
s/p FLAT LOCK OPERATOR shunt at [facility]
*confirmed cannot get MRI here given shunt
#Vitamin D deficiency-continue replacement
#Chronic back pain
#Morbid obesity with a BMI of 35- Weight loss recommended
#History of nephrolithiasis
#Possible sleep apnea-needs outpatient study as OP.
#ADHD
#Hepatic steatosis per prior imaging-outpatient follow-up
#Active smoker-cessation counseling when able
#DVT prophylaxis-Lovenox
#Full code
Antibiotic regimen completed.
Total time spent on today's encounter was 37 minutes which included time spent in counseling the patient/family regarding diagnosis and treatment plan as listed above, goals of care, and symptom management. Case was discussed with nursing staff,
specialists, and care coordinators/case management. All labs and imaging personally reviewed by me. Remainder the time spent in detailed review of previous records, lab data, imaging, and other medical provider documentation.
Anticipated Discharge: 24 - 48 hours
Subjective/Interval History
-
Date of Service: June 25, 2025
Patient still has some headache but refuses Topamax. No shortness of breath. Afebrile
Objective Data
-
Vital Signs:
Vital Signs
Temp Pulse Resp BP Pulse Ox
97.8 F 72 16 146/86 94
06/25/25 07:30 06/25/25 07:30 06/25/25 07:30 06/25/25 07:30 06/25/25 07:30
I&O
06/24/25 06/25/25 06/26/25
06:59 06:59 06:59
Intake Total 1200 / 1200 1800 / 1800
Output Total 1350 / 1350 1100 / 1100
Balance -150 / -150 700 / 700
[2025-06-25] MEDS: LOVENOX 40 MG SC (17:38)
--- NOTE | 2025-06-25 20:40 | PTCARENOTE ---
Pt wants to rinse mouth out with mouthwash in the morning.
[2025-06-25] MEDS: DESENEX/MITRAZOL/ZEASORB TOPICAL (20:44)
[2025-06-26] MEDS: ROXICODONE 2.5 MG PO ×6 (02:17→23:25)
[2025-06-26 03:00] VITALS: BP 145/79
[2025-06-26 03:15] VITALS: BMI 31.1
[2025-06-26 07:30] VITALS: BP 142/91
[2025-06-26] MEDS: COREG 25 MG PO ×2 (09:28→19:36)
[2025-06-26] MEDS: CATAPRES 0.2 MG PO ×2 (09:28→19:40)
[2025-06-26] MEDS: PROCARDIA XL (EXTENDED RELEASE) 30 MG PO (09:28)
[2025-06-26] MEDS: PROTONIX 40 MG PO (09:28)
[2025-06-26] MEDS: COZAAR 100 MG PO (09:29)
[2025-06-26] MEDS: ALDACTONE 50 MG PO (09:29)
[2025-06-26] MEDS: SENOKOT PO ×2 (09:32→19:42)
[2025-06-26] MEDS: MYCOSTATIN ORAL SUSPENSION PO ×4 (09:32→21:02)
[2025-06-26] MEDS: COLACE PO ×2 (09:32→19:42)
[2025-06-26] MEDS: MIRALAX PO (09:32)
[2025-06-26] MEDS: TOPAMAX PO (09:32)
[2025-06-26] MEDS: HYDROPHOR 1 APPLIC TOPICAL (09:34)
[2025-06-26] MEDS: DESENEX/MITRAZOL/ZEASORB 1 APPLIC TOPICAL ×2 (09:34→19:42)
--- NOTE | 2025-06-26 10:21 | W.PN.ID1 ---
Date of Service
Date of Service: June 26, 2025
Today's Communication
Observe off antibiotics. Await MRI.
Assessment / Plan
Sustained (04/30 - 05/09) complicated MRSA bacteremia
- Blood cultures clear as of 05/11/2025
Pulmonary septic emboli
Cavitary MRSA PNA
Right knee septic arthritis
- s/p washout 05/07. Cultures with MRSA
Right thigh & calf necrotizing soft tissue infection
Right second toe infection/gangrene/osteomyelitis; s/p amputation
Fever - resolved
Leukocytosis - stable
BURRIS
s/p Hypoxemic respiratory failure, self extubated 05/05
SINDY; resolved
Substance abuse (UDS with fentanyl, amphetamine, methamphetamine, benzodiazepine)
Hx CVA (thalamic bleed) with right hemiplegia
Chronic back pain
Recommendations:
Sputum cx: MRSA
Blood cx's negative 05/11 forward
05/06 R knee fluid: 41,220 WBC, 54% polys, neg crystals.
Synovial cx : MRSA
05/07/25 - s/p washout of R knee (+PUS). Cx MRSA
05/07/25 - s/p I+D right thigh and calf. Cx MRSA
05/09/25 s/p R 2nd toe amputation
Patient completed course of ceftaroline. He has noted ongoing headaches which may be due to ceftaroline, but previously noted more in the pediatric population. Continue to follow.
If headaches persist, may require evaluation of ENGINEERING TECHNICAL ANALYST shunt. No current nuchal rigidity.
MRI ordered by Neurology is pending.
Continue to observe off antibiotics.
����������������������������������������������������������
Chief Complaint
-: Clinical Sepsis, Pneumonia and Bacteremia
Subjective / Review of Systems
Patient seen and examined. Reports ongoing headache. No fevers or chills. Breathing fine.
Review of Systems: No Fever and No Chills
Vital Signs / Physical Exam
Vital Signs
Vital Signs
Temp Pulse Resp BP Pulse Ox
97.6 F 69 16 142/91 94
06/26/25 07:30 06/26/25 07:30 06/26/25 07:30 06/26/25 09:28 06/26/25 07:30
Physical Exam
Constitutional: No Acute Distress, Comfortable and Chronically Ill
Cardiovascular: S1/S2; Negative S3/S4
Pulmonary: Non Labored
Gastrointestinal: Non Distended
Extremities: Edema, Venous Insufficiency (Bilateral lower extremities) and Other (LE stasis dermatitis)
Wound: Other (Incisional knee wound - C/D/I and essentially healed with a few crusts. Right thigh wound with granular base. No periwound erythema. Right calf wound with granular base. No periwound erythema.)
Neurological: Negative Meningeal Signs (No nuchal rigidity)
Psychological: Calm
Objective Data
Lab Data
Lab Results
06/24/25 06:08
06/24/25 06:08
PT 20.0 Sec (11.4-14.6) H 04/30/25 19:46
INR 1.65 04/30/25 19:46
APTT Cancelled 05/04/25 14:45
Estimated Creat Clear > 125 ml/min 06/24/25 06:08
Lactic Acid 1.9 mmol/L (0.7-2.0) 05/01/25 12:18
Total Bilirubin Cancelled 06/20/25 07:46
AST Cancelled 06/20/25 07:46
ALT Cancelled 06/20/25 07:46
Alkaline Phosphatase Cancelled 06/20/25 07:46
Most recent labs reviewed.
Micro Results:
05/16/25 04:52 Blood Culture - Final
Blood/Venous No Growth - Final Report
05/15/25 05:39 Blood Culture - Final
Blood/Venous No Growth - Final Report
05/14/25 03:20 Blood Culture - Final
Blood/Venous No Growth - Final Report
05/13/25 09:45 Blood Culture - Final
Blood/Venous No Growth - Final Report
05/12/25 05:34 Blood Culture - Final
Blood/Venous No Growth - Final Report
05/11/25 12:40 Blood Culture - Final
Blood/Venous No Growth - Final Report
05/09/25 04:01 Blood Culture - Final
Blood/Venous Staph aureus MRSA
Gram Stain - Final
05/08/25 04:21 Blood Culture - Final
Blood/Venous Staph aureus MRSA
Gram Stain - Final
05/07/25 04:55 Blood Culture - Final
Blood/Venous Staph aureus MRSA
Gram Stain - Final
05/06/25 08:16 Blood Culture - Final
Blood/Venous Staph aureus MRSA
Gram Stain - Final
05/07/25 18:35 Wound Culture - Final
Knee - Right Staph aureus MRSA
Gram Stain - Final
05/07/25 18:35 Anaerobic Culture - Final
Knee - Right NO ANAEROBES ISOLATED
05/07/25 18:35 Wound Culture - Final
Leg - Right Staph aureus MRSA
Gram Stain - Final
05/07/25 18:35 Anaerobic Culture - Final
Leg - Right NO ANAEROBES ISOLATED
05/05/25 03:34 Blood Culture - Final
Blood/Venous No Growth - Final Report
05/03/25 04:25 Blood Culture - Final
Blood/Venous Staph aureus MRSA
Gram Stain - Final
05/02/25 03:16 Blood Culture - Final
Blood/Venous Staph aureus MRSA
Gram Stain - Final
05/04/25 03:13 Blood Culture - Final
Blood/Venous No Growth - Final Report
05/06/25 13:19 Body Fluid Culture - Final
Synovial Fluid Staph aureus MRSA
Gram Stain - Final
04/30/25 19:46 Blood Culture - Final
Blood/Venous Staph aureus MRSA
Gram Stain - Final
05/04/25 09:25 Respiratory Culture - Final
Endotracheal Staph aureus MRSA
Gram Stain - Final
05/01/25 17:45 Blood Culture - Final
Blood/Venous Staph aureus MRSA
Gram Stain - Final
04/30/25 19:46 Blood Culture - Final
Blood/Venous Staph aureus MRSA
Gram Stain - Final
05/01/25 01:32 Urine Culture - Final
Urine Yeast
05/01/25 01:17 Blood Parasites Smear - Final
Blood/Venous
04/30/25 23:02 Influenza Types A & B (GIORGIO) - Final
Nasal Swab Negative for Influenza A & B, NAAT
Negative results must be combined with clinical observations
and patient history.
Nucleic Acid Amplification test (NAAT)performed on the
[employer] platform.
Imaging:
05/27/2025 CT chest without contrast: overall decreased bilateral consolidation. Decreased or unchanged size of bilateral nodules and cavitary lesions, with decreased wall thickening of the cavitary lesions. Small bilateral pleural effusions noted,
decreased on the right and unchanged on the left. No abnormally enlarged mediastinal lymph nodes identified. No pericardial effusion. Please see full dictation for additional detail.
05/16/2025 CXR (portable): extensive heterogeneous opacities bilaterally. A 6.2 cm cavitary right lower lobe lesion again noted. No pneumothorax or pleural effusion. Mild cardiac enlargement.
05/12/2025 CXR (portable): improved aeration of the right upper lung compared to prior days imaging. Otherwise, extensive diffuse bilateral patchy, nodular and confluent airspace opacities.
05/02/25 CT RLE: Subcutaneous stranding within the soft tissues of the anterior right thigh, and [id number] anterior soft tissues. No drainable abscess is appreciated. Moderate suprapatellar joint effusion, with areas of loculation.
05/01/2025 ECHO (TTE): EF 55%. Normal biventricular size and systolic function. No significant valvular disease. No obvious vegetations.
05/01/2025 CXR (portable): bilateral interstitial and airspace disease noted which may reflect pulmonary edema or pneumonia. Small bilateral pleural effusions noted. Please see full dictation for additional detail.
05/01/2025 Abdominal x-ray. Enteric tube noted in stomach.
05/01/2025 Renal ultrasound: unremarkable renal ultrasound without hydronephrosis, contour deforming solid renal mass or echogenic shadowing foci to suggest renal calculi. Bilateral pleural effusions noted.
05/01/2025 Duplex ultrasound lower extremity: no evidence of DVT in the bilateral lower extremities
04/30/2025 X-ray right foot: soft tissue injury versus ulceration involving the second digit with soft tissue swelling. The cortex of the distal phalanx is indistinct and the possibility of osteomyelitis cannot be excluded. There is soft tissue
swelling of the first digit. No radiographic evidence to suggest osteomyelitis. Please see full dictation for additional detail.
--- NOTE | 2025-06-26 10:41 | W.PN.HOSP.TC ---
Today's Communication/Plan
-
Discharge disposition
Assessment / Plan
Assessment / Plan
Physical exam:
General: Acute and chronically ill
HEENT: Normocephalic, Atraumatic and Moist Mucous Membranes
Respiratory: Clear to Auscultation; Negative Wheezes, Rales or Rhonchi
Cardiac: Regular Rhythm and S1/S2
GI: Soft, Nontender and Nondistended
Musculoskeletal: No Clubbing, No Cyanosis and No Edema
Neuro: Awake, Alert and Oriented, no neurological deficit
Psych: Calm
A/P:
Mr. Patrice Mera is a 50 yo man with hx polysubstance abuse, prior CVA (thalamic bleed; right hemiplegia), essential HTN, admitted 04/30 with septic shock 2/2 MRSA bacteremia, SINDY with anion gap metabolic acidosis and hypoxemic respiratory failure.
He is found to have septic joint right knee and development of necrotizing fasciitis.
#Persistent headache
Relatively stable
Discussed with neurology recommend to start Topamax and stop oxycodone. Patient does not want to start Topamax and wants to be kept on low-dose oxycodone.
Waiting for MRI of the brain-discussed with radiology and they are not sure if able to be done as inpatient so they will get back to me. They have not gotten any information so most likely can be done outpatient.
#Resistant hypertension
Improving
Cardiology input appreciated and they signed off today
Renal Doppler inconclusive but overall negative
Continue current regimen
#Acute respiratory failure, VDRF
-off of O2
-CT scan of the chest 05/27 shows stability
- Labs repeated 06/20 unremarkable; normal CPK
prior to today:
-patient was intubated on admission for multiple reasons in setting of septic shock, pneumonia, septic emboli
-CTA without PE
-s/p self extubation on 05/05
-CT Chest -noted with bilateral cavitary nodules -repeat chest CT next week to follow on it
-Methylprednisolone 40 mg IV daily started on 05/11/25 per pulmonary-getting switched to oral prednisone for 5 days-last day 05/20.
#MRSA Bacteremia
Surveillance blood cultures are negative
Continue antibiotics per ID-on ceftaroline and daptomycin - last day 06/22/25
CMP and CPK are ok
prior to today:
Septic Shock - patient was on Levo, Vaso, Epi, Giapreza; remains off pressors
Septic Arthritis Right Knee
Necrotizing Fasciitis right medial thigh and calf
- JEAN 05/06 without e/o vegetation
- Right knee joint aspirate positive for MRSA 05/06
- Exam 05/07 with new concern for necrotizing fasciitis right medial thigh and calf Daily wound care and packing-of the 2 wounds
- Appreciate general surgery and ortho, patient is s/p I&D of necrotizing soft tissue infection and washout right knee on 05/07/25
- 05/07 antibiotics changed to IV Daptomycin Teflaro started on 05/11/2025
- Last positive Blood cultures from 05/09, negative since 05/11/25.
-Blood pressure stable. White count improving -follow for now
#Right second toe infection Gangrene
- stable
prior to today:
-Appreciate ID and Podiatry
-Antibiotics as above
-Arterial US with multiphasic waveforms
-Wound care Betadine soaked gauze to toe - change every day
-S/P Right 2nd toe amputation secondary to gangrenous changes with exposed bone 05/09/25
# Acute kidney injury - ATN in setting of septic shock
Cr stable
prior to today:
Metabolic Acidosis Resolved
-Patient briefly required CRRT but could not tolerate long
-Ultrasound of the kidneys without obstruction
-Appreciate Renal
-SINDY now resolved
-Cheng discontinued on 05/06
- Creatinine stable
# Anemia secondary to acute illness. H&H stable
# Thrombocytosis secondary to infection-resolved
# Anasarca
# Hypoalbuminemia
# Drug abuse urine drug screen positive for Fentanyl, Benzos, Amphetamines and Methamphetamines
Decreased oxycodone from 20 to 10 and from 10 to 5 and space out Ativan from q 4 hr to bid as needed and tolerating well
prior to today:
Patient was discharged to a rehab last admission however he stayed there only for 2 days and signed himself out
# Multidrug resistant hypertension-
Elevated readings since 06/19 associated with headache. Unclear why new elevation. CT head shows SOLAR PV INSTALLER shunt in place and no evidence of acute intracranial findings. Overall ventricles are within the limits of normal in size. Is mention about
daptomycin causing elevation in blood pressure. Do not know why it has to be now. Discussed with ID who said if persistent elevation we could stop daptomycin early. He is due to stop antibiotics tomorrow. Continue with as needed hydralazine and
if persistent elevations may be add Norvasc to his regimen.
Improved blood pressure readings now.
Patient still with headaches. Will watch today with improved blood pressure and if still persistent consult neurology
prior to today:
Patient was on Coreg, losartan, clonidine, Aldactone as outpatient.
- Patient back on clonidine, spironolactone, losartan, Coreg.
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 Transferred to [place] . Pt says he was there for 3 months and has weakness of right side and facial droop.
stable
prior to today:
s/p SOLAR PV INSTALLER shunt at [place]
*confirmed cannot get MRI here given shunt
#Vitamin D deficiency-continue replacement
#Chronic back pain
#Morbid obesity with a BMI of 35- Weight loss recommended
#History of nephrolithiasis
#Possible sleep apnea-needs outpatient study as OP.
#ADHD
#Hepatic steatosis per prior imaging-outpatient follow-up
#Active smoker-cessation counseling when able
#DVT prophylaxis-Lovenox
#Full code
Antibiotic regimen completed.
Time spent 35 minutes
Anticipated Discharge: Today
Subjective/Interval History
-
Date of Service: June 26, 2025
No shortness of breath. No fever.
Objective Data
-
Vital Signs:
Vital Signs
Temp Pulse Resp BP Pulse Ox
97.6 F 69 16 142/91 94
06/26/25 07:30 06/26/25 07:30 06/26/25 07:30 06/26/25 09:28 06/26/25 07:30
I&O
06/25/25 06/26/25 06/27/25
06:59 06:59 06:59
Intake Total 1800 / 1800 1979 / 1979
Output Total 1100 / 1100 1450 / 1450
Balance 700 / 700 530 / 530
[2025-06-26 11:15] VITALS: BP 115/80
[2025-06-26] MEDS: DAKIN'S SOLUTION 0.125% 1/4 STRENGTH 473 ML TOPICAL (11:15)
--- NOTE | 2025-06-26 12:32 | CM ---
Spoke with liaison for [facility], [facility] and [facility].
Facilities will take another look to see if they can accept patient.
[facility]
Await facility determination re bed availability/acceptance.
If accepted, patient will require insurance authorization.
[2025-06-26 15:45] VITALS: BP 134/76
--- NOTE | 2025-06-26 17:26 | PTCARENOTE ---
patient refused all medications for bowel regimen, refusing Topamax and Nystatin. receiving Roxicodone 2.5mgs PO Q4hrs PRN and constantly reports frontal headache and right knee pain. pt falls asleep after Roxicodone administered. tolerating diet,
vss, will continue to monitor.
[2025-06-26] MEDS: LOVENOX 40 MG SC (18:28)
[2025-06-26 23:00] VITALS: BP 140/78
[2025-06-27 03:14] VITALS: BMI 30.9
[2025-06-27] MEDS: ROXICODONE 2.5 MG PO ×4 (05:46→20:53)
[2025-06-27 07:00] VITALS: BP 146/92
[2025-06-27] MEDS: MIRALAX PO (07:41)
[2025-06-27] MEDS: MYCOSTATIN ORAL SUSPENSION PO ×5 (07:41→20:55)
[2025-06-27] MEDS: SENOKOT PO ×2 (07:41→20:56)
[2025-06-27] MEDS: COLACE PO ×2 (07:41→20:56)
[2025-06-27 08:42] VITALS: BP 164/95; BP 174/107; PULSE 65; PULSE 71; O2SAT 99
[2025-06-27] MEDS: PROTONIX 40 MG PO (08:47)
[2025-06-27] MEDS: PROCARDIA XL (EXTENDED RELEASE) 30 MG PO (08:48)
[2025-06-27] MEDS: COZAAR 100 MG PO (08:48)
[2025-06-27] MEDS: DESENEX/MITRAZOL/ZEASORB 1 APPLIC TOPICAL ×2 (08:48→20:56)
[2025-06-27] MEDS: HYDROPHOR 1 APPLIC TOPICAL (08:48)
[2025-06-27] MEDS: COREG 25 MG PO ×2 (08:48→20:53)
[2025-06-27] MEDS: CATAPRES 0.2 MG PO ×2 (08:48→20:52)
[2025-06-27] MEDS: ALDACTONE 50 MG PO (08:48)
[2025-06-27] MEDS: DAKIN'S SOLUTION 0.125% 1/4 STRENGTH 473 ML TOPICAL (08:49)
--- NOTE | 2025-06-27 10:33 | W.PN.HOSP.TC ---
Today's Communication/Plan
-
Discharge planning
Assessment / Plan
Assessment / Plan
Physical exam:
General: Acute and chronically ill
HEENT: Normocephalic, Atraumatic and Moist Mucous Membranes
Respiratory: Clear to Auscultation; Negative Wheezes, Rales or Rhonchi
Cardiac: Regular Rhythm and S1/S2
GI: Soft, Nontender and Nondistended
Musculoskeletal: No Clubbing, No Cyanosis and No Edema
Neuro: Awake, Alert and Oriented, no neurological deficit
Psych: Calm
A/P:
Mr. Patrice Mera is a 50 yo man with hx polysubstance abuse, prior CVA (thalamic bleed; right hemiplegia), essential HTN, admitted 04/30 with septic shock 2/2 MRSA bacteremia, SINDY with anion gap metabolic acidosis and hypoxemic respiratory failure.
He is found to have septic joint right knee and development of necrotizing fasciitis.
#Persistent headache
Relatively stable
Discussed with neurology recommend to start Topamax and stop oxycodone. Patient does not want to start Topamax and wants to be kept on low-dose oxycodone.
Radiology cannot confirm to get MRI done. MRI can be done outpatient if able to contact outpatient neurology services for CADDIE shunt.
Plan to discharge today
#Resistant hypertension
Improving
Cardiology input appreciated and they signed off today
Renal Doppler inconclusive but overall negative
Continue current regimen
#Acute respiratory failure, VDRF
-off of O2
-CT scan of the chest 05/27 shows stability
- Labs repeated 06/20 unremarkable; normal CPK
prior to today:
-patient was intubated on admission for multiple reasons in setting of septic shock, pneumonia, septic emboli
-CTA without PE
-s/p self extubation on 05/05
-CT Chest -noted with bilateral cavitary nodules -repeat chest CT next week to follow on it
-Methylprednisolone 40 mg IV daily started on 05/11/25 per pulmonary-getting switched to oral prednisone for 5 days-last day 05/20.
#MRSA Bacteremia
Surveillance blood cultures are negative
Continue antibiotics per ID-on ceftaroline and daptomycin - last day 06/22/25
CMP and CPK are ok
prior to today:
Septic Shock - patient was on Levo, Vaso, Epi, Giapreza; remains off pressors
Septic Arthritis Right Knee
Necrotizing Fasciitis right medial thigh and calf
- JEAN 05/06 without e/o vegetation
- Right knee joint aspirate positive for MRSA 05/06
- Exam 05/07 with new concern for necrotizing fasciitis right medial thigh and calf Daily wound care and packing-of the 2 wounds
- Appreciate general surgery and ortho, patient is s/p I&D of necrotizing soft tissue infection and washout right knee on 05/07/25
- 05/07 antibiotics changed to IV Daptomycin Teflaro started on 05/11/2025
- Last positive Blood cultures from 05/09, negative since 05/11/25.
-Blood pressure stable. White count improving -follow for now
#Right second toe infection Gangrene
- stable
prior to today:
-Appreciate ID and Podiatry
-Antibiotics as above
-Arterial US with multiphasic waveforms
-Wound care Betadine soaked gauze to toe - change every day
-S/P Right 2nd toe amputation secondary to gangrenous changes with exposed bone 05/09/25
# Acute kidney injury - ATN in setting of septic shock
Cr stable
prior to today:
Metabolic Acidosis Resolved
-Patient briefly required CRRT but could not tolerate long
-Ultrasound of the kidneys without obstruction
-Appreciate Renal
-SINDY now resolved
-Cheng discontinued on 05/06
- Creatinine stable
# Anemia secondary to acute illness. H&H stable
# Thrombocytosis secondary to infection-resolved
# Anasarca
# Hypoalbuminemia
# Drug abuse urine drug screen positive for Fentanyl, Benzos, Amphetamines and Methamphetamines
Decreased oxycodone from 20 to 10 and from 10 to 5 and space out Ativan from q 4 hr to bid as needed and tolerating well
prior to today:
Patient was discharged to a rehab last admission however he stayed there only for 2 days and signed himself out
# Multidrug resistant hypertension-
Elevated readings since 06/19 associated with headache. Unclear why new elevation. CT head shows CADDIE shunt in place and no evidence of acute intracranial findings. Overall ventricles are within the limits of normal in size. Is mention about
daptomycin causing elevation in blood pressure. Do not know why it has to be now. Discussed with ID who said if persistent elevation we could stop daptomycin early. He is due to stop antibiotics tomorrow. Continue with as needed hydralazine and
if persistent elevations may be add Norvasc to his regimen.
Improved blood pressure readings now.
Patient still with headaches. Will watch today with improved blood pressure and if still persistent consult neurology
prior to today:
Patient was on Coreg, losartan, clonidine, Aldactone as outpatient.
- Patient back on clonidine, spironolactone, losartan, Coreg.
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 Transferred to [place] . Pt says he was there for 3 months and has weakness of right side and facial droop.
stable
prior to today:
s/p CADDIE shunt at [place]
*confirmed cannot get MRI here given shunt
#Vitamin D deficiency-continue replacement
#Chronic back pain
#Morbid obesity with a BMI of 35- Weight loss recommended
#History of nephrolithiasis
#Possible sleep apnea-needs outpatient study as OP.
#ADHD
#Hepatic steatosis per prior imaging-outpatient follow-up
#Active smoker-cessation counseling when able
#DVT prophylaxis-Lovenox
#Full code
Antibiotic regimen completed.
Anticipated Discharge: Today
Subjective/Interval History
-
Date of Service: June 27, 2025
No new complaints today. Afebrile
Objective Data
-
Vital Signs:
Vital Signs
Temp Pulse Resp BP Pulse Ox
97.7 F 65 16 146/92 98
06/27/25 07:00 06/27/25 07:00 06/27/25 07:00 06/27/25 07:00 06/27/25 07:00
I&O
06/26/25 06/27/25 06/28/25
06:59 06:59 06:59
Intake Total 1979 / 1979 840 / 840
Output Total 1450 / 1450 1275 / 1275
Balance 530 / 530 -435 / -435
--- NOTE | 2025-06-27 11:06 | WOUNDNOTE ---
R CALF (UPPER MEDIAL)
--- NOTE | 2025-06-27 11:14 | CM ---
Patient accepted at [facility]
NPI# [id number]
Accepting MD Dr Lisa, NPI# [id number]
Patient will require insurance auth.
--- NOTE | 2025-06-27 11:15 | WOUNDNOTE ---
WO RN note: Patient for possible transfer to SNF today as per RN Maday. RLE and R medial thigh continue to improve, smaller and pink. Patient continues to decline knee high Brody wrap. Sacral skin intact. Skin on heels intact. Protective silicone
border foam changed on sacrum. Heels off bed with pillows. Patient has bariatric air chair cushion and a Centrella Maxi air bed. Patient stated he is following written calf pumping exercises. Will sign off. Call if needed.
--- NOTE | 2025-06-27 12:48 | CM ---
spoke with patient agreeable to go to [facility] - accepted patient
spoke with Chastity liaison
[facility] NPI #: [id number]
Dr. Brandon Padilla NPI #: [id number]
CM called and spoke to Emiliana at [phone] to get ins. auth
she stated the request for SNF & clinicals will need to be faxed to [phone] - Cannot do over phone
CM faxed clinicals as requested, await determination
PLAN: [facility], await insurance authorization
transportation forms on chart
--- NOTE | 2025-06-27 13:52 | CM ---
Call to Ranjan Ng [employer] ([phone]) , asking her to expedite us getting a determination on [place]. She said that she would call the area that received the fax'd clinical
and ask them to expedite us getting a determination. Update to CM
--- NOTE | 2025-06-27 14:20 | WOUNDNOTE ---
WOC RN Note: Sarthak Hill re: recommend an air mattress (wide bed if possible) for patient at SNF. He is at risk for a pressure injury.
[2025-06-27 15:00] VITALS: BP 106/60
[2025-06-27] MEDS: LOVENOX 40 MG SC (17:09)
--- NOTE | 2025-06-27 17:20 | CM ---
Addendum entered by Regina Hill RN 06/27/25 17:43:
30 day approval letter for SNF stay at [facility] received from Ranjan Rasmussen. Auth number [id number]. Message tony for Liaison from [facility] to make her aware and to ask if they can accept over the week-end. Update to and asked she
follow-up with [facility] in the morning.
Original Note:
Received e-mail from Ranjan Ng, that SNF auth has been approved for 30 days, she stated they had sent a fax with all of the detailed information. Checked fax, no fax yet. Note left for CM who will have patient this week-end to
please check fax in the morning . l did send e-mail back to [place] that we have not received the fax yet. Update to CM.
[2025-06-27 19:53] VITALS: BP 132/71
[2025-06-27 23:32] VITALS: BP 119/75
[2025-06-28] MEDS: ROXICODONE 2.5 MG PO ×2 (01:59→08:59)
[2025-06-28 06:28] VITALS: BMI 31.1
[2025-06-28 08:39] VITALS: BP 120/87
[2025-06-28] MEDS: MIRALAX PO (08:52)
[2025-06-28] MEDS: COZAAR 100 MG PO (08:52)
[2025-06-28] MEDS: COLACE PO (08:52)
[2025-06-28] MEDS: MYCOSTATIN ORAL SUSPENSION PO (08:52)
[2025-06-28] MEDS: ALDACTONE 50 MG PO (08:53)
[2025-06-28] MEDS: PROTONIX 40 MG PO (08:53)
[2025-06-28] MEDS: CATAPRES 0.2 MG PO (08:53)
[2025-06-28] MEDS: PROCARDIA XL (EXTENDED RELEASE) 30 MG PO (08:53)
[2025-06-28] MEDS: COREG 25 MG PO (08:54)
[2025-06-28] MEDS: SENOKOT PO (08:54)
[2025-06-28] MEDS: DAKIN'S SOLUTION 0.125% 1/4 STRENGTH 473 ML TOPICAL (08:55)
[2025-06-28] MEDS: HYDROPHOR TOPICAL (08:56)
[2025-06-28] MEDS: DESENEX/MITRAZOL/ZEASORB 1 APPLIC TOPICAL (08:56)
--- NOTE | 2025-06-28 10:46 | CM ---
Pt cleared for discharge to [facility] today. [facility] Auth number [id number] for 30 days.
Call placed to [facility] Liaison and pt is accepted for transfer today. Ambulance transport requested; scheduled for 12:30 roller picker.
Kaci [place] Report:[phone]
Kyara Zuñiga
--- NOTE | 2025-06-28 10:56 | W.PN.HOSP.TC ---
Today's Communication/Plan
-
Discharge planning today
Assessment / Plan
Assessment / Plan
Physical exam:
General: Chronically ill
HEENT: Normocephalic, Atraumatic and Moist Mucous Membranes
Respiratory: Clear to Auscultation; Negative Wheezes, Rales or Rhonchi
Cardiac: Regular Rhythm and S1/S2
GI: Soft, Nontender and Nondistended
Musculoskeletal: No Clubbing, No Cyanosis and No Edema
Neuro: Awake, Alert and Oriented, no neurological deficit
Psych: Calm
A/P:
Mr. Patrice Mera is a 50 yo man with hx polysubstance abuse, prior CVA (thalamic bleed; right hemiplegia), essential HTN, admitted 04/30 with septic shock 2/2 MRSA bacteremia, SINDY with anion gap metabolic acidosis and hypoxemic respiratory failure.
He is found to have septic joint right knee and development of necrotizing fasciitis.
#Persistent headache
Relatively stable
Discussed with neurology recommend to start Topamax and stop oxycodone. Patient does not want to start Topamax and wants to be kept on low-dose oxycodone.
Radiology cannot confirm to get MRI done. MRI can be done outpatient if able to contact outpatient neurology services for CIGARETTE MACHINE FILLER shunt.
Plan to discharge today
#Resistant hypertension
Improving
Cardiology input appreciated and they signed off today
Renal Doppler inconclusive but overall negative
Continue current regimen
#Acute respiratory failure, VDRF
-off of O2
-CT scan of the chest 05/27 shows stability
- Labs repeated 06/20 unremarkable; normal CPK
prior to today:
-patient was intubated on admission for multiple reasons in setting of septic shock, pneumonia, septic emboli
-CTA without PE
-s/p self extubation on 05/05
-CT Chest -noted with bilateral cavitary nodules -repeat chest CT next week to follow on it
-Methylprednisolone 40 mg IV daily started on 05/11/25 per pulmonary-getting switched to oral prednisone for 5 days-last day 05/20.
#MRSA Bacteremia
Surveillance blood cultures are negative
Continue antibiotics per ID-on ceftaroline and daptomycin - last day 06/22/25
CMP and CPK are ok
prior to today:
Septic Shock - patient was on Levo, Vaso, Epi, Giapreza; remains off pressors
Septic Arthritis Right Knee
Necrotizing Fasciitis right medial thigh and calf
- JEAN 05/06 without e/o vegetation
- Right knee joint aspirate positive for MRSA 05/06
- Exam 05/07 with new concern for necrotizing fasciitis right medial thigh and calf Daily wound care and packing-of the 2 wounds
- Appreciate general surgery and ortho, patient is s/p I&D of necrotizing soft tissue infection and washout right knee on 05/07/25
- 05/07 antibiotics changed to IV Daptomycin Teflaro started on 05/11/2025
- Last positive Blood cultures from 05/09, negative since 05/11/25.
-Blood pressure stable. White count improving -follow for now
#Right second toe infection Gangrene
- stable
prior to today:
-Appreciate ID and Podiatry
-Antibiotics as above
-Arterial US with multiphasic waveforms
-Wound care Betadine soaked gauze to toe - change every day
-S/P Right 2nd toe amputation secondary to gangrenous changes with exposed bone 05/09/25
# Acute kidney injury - ATN in setting of septic shock
Cr stable
prior to today:
Metabolic Acidosis Resolved
-Patient briefly required CRRT but could not tolerate long
-Ultrasound of the kidneys without obstruction
-Appreciate Renal
-SINDY now resolved
-Cheng discontinued on 05/06
- Creatinine stable
# Anemia secondary to acute illness. H&H stable
# Thrombocytosis secondary to infection-resolved
# Anasarca
# Hypoalbuminemia
# Drug abuse urine drug screen positive for Fentanyl, Benzos, Amphetamines and Methamphetamines
Decreased oxycodone from 20 to 10 and from 10 to 5 and space out Ativan from q 4 hr to bid as needed and tolerating well
prior to today:
Patient was discharged to a rehab last admission however he stayed there only for 2 days and signed himself out
# Multidrug resistant hypertension-
Elevated readings since 06/19 associated with headache. Unclear why new elevation. CT head shows CIGARETTE MACHINE FILLER shunt in place and no evidence of acute intracranial findings. Overall ventricles are within the limits of normal in size. Is mention about
daptomycin causing elevation in blood pressure. Do not know why it has to be now. Discussed with ID who said if persistent elevation we could stop daptomycin early. He is due to stop antibiotics tomorrow. Continue with as needed hydralazine and
if persistent elevations may be add Norvasc to his regimen.
Improved blood pressure readings now.
Patient still with headaches. Will watch today with improved blood pressure and if still persistent consult neurology
prior to today:
Patient was on Coreg, losartan, clonidine, Aldactone as outpatient.
- Patient back on clonidine, spironolactone, losartan, Coreg.
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 Transferred to [place] . Pt says he was there for 3 months and has weakness of right side and facial droop.
stable
prior to today:
s/p CIGARETTE MACHINE FILLER shunt at [place]
*confirmed cannot get MRI here given shunt
#Vitamin D deficiency-continue replacement
#Chronic back pain
#Morbid obesity with a BMI of 35- Weight loss recommended
#History of nephrolithiasis
#Possible sleep apnea-needs outpatient study as OP.
#ADHD
#Hepatic steatosis per prior imaging-outpatient follow-up
#Active smoker-cessation counseling when able
#DVT prophylaxis-Lovenox
#Full code
Antibiotic regimen completed.
Anticipated Discharge: Today
Subjective/Interval History
-
Date of Service: June 28, 2025
No chest pain or shortness of breath. Mild headache
Objective Data
-
Vital Signs:
Vital Signs
Temp Pulse Resp BP Pulse Ox
98.2 F 67 14 120/87 98
06/28/25 08:39 06/28/25 08:53 06/28/25 08:39 06/28/25 08:53 06/28/25 08:39
I&O
06/27/25 06/28/25 06/29/25
06:59 06:59 06:59
Intake Total 840 / 840 880 / 880
Output Total 1275 / 1275 1300 / 1300
Balance -435 / -435 -420 / -420
--- NOTE | 2025-06-28 10:56 | W.DCSUMMARY ---
Discharge Summary
Discharge Data
Date of Admission: 04/30/25
Date of Discharge: 06/28/25
Total time spent discharging patient (in min): 42
-
Pending Results: No
Hospital Course
Patient 50 years old male with multiple comorbidities including polysubstance abuse, CVA, hypertension, presented to the hospital with multiple complaints and found to have sepsis. Patient had a very prolonged hospital stay. Upon presentation to
the ER toxicology was positive for fentanyl, amphetamine, methamphetamine, and benzodiazepine. Patient decompensated and went into respiratory failure and was intubated and admitted to ICU. He was placed on multiple antibiotics and pressors. He
had MRSA bacteremia. He had sustained complicated MRSA bacteremia. He had pulmonary septic emboli and cavitary MRSA pneumonia, he also has septic right knee, he also had a right thigh and calf necrotizing soft tissue infection, and he had right
second toe gangrene. He underwent right irrigation debridement with arthrotomy of the right septic knee on 05/07 and second toe amputation on 05/08. He underwent transesophageal echocardiogram with no evidence of any valvular vegetations. He was
managed narcotic high doses of pain medication but subsequently we were able to taper down to very low doses of narcotics and he had been able to tolerate. There was an attempt to also use Topamax rather than low-dose narcotics but patient did not
tolerate and preferred to stay on a low dose pain meds. There was also an attempt to do an MRI of the brain but cannot be done since it cannot be confirmed the details of the [employer] shunt. He will follow-up with neurology as outpatient to see if this
can be accomplished as outpatient. He also had resistant hypertension for which cardiology did renal artery Dopplers with no significant evidence of stenosis and had been adjusted his antihypertensive regimen and we will follow him up as
outpatient. Multiple specialist have seen him throughout this hospital stay including critical care, pulmonary, cardiology, neurology, ID, Ortho, podiatry. His latest blood cultures have been sterile since 05/11. Patient completed long course of
IV antibiotics throughout this hospital stay. Otherwise, patient is hemodynamically stable and cleared for discharge.
Discharge duration: 42 minutes
Discharge Plan
-
Patient Disposition: Fpc/SNF
Discharge Diagnosis/Procedures: Sepsis.
Diet: Low Cholesterol
Activity: As tolerated
Blood Work: Please PCP to order CBC, BMP within 1 week
Activity Restrictions/Additional Instructions:
Wound Care Instructions
Aquaphor ointment to dry intact skin Le's daily.
R medial thigh and R upper medial calf wounds-pack with 1/4 strength Dakin's or Vashe moistened gauze, cover with ABD pad or silicone border foam. Change daily and prn drainage.
R knee incision: Daily dry dressing change prn protection.
R thigh high Brody, L knee high Brody (from base of toes to upper thigh on R and to knee on L); rewrap daily and as needed for skin check/wound care.
Elevate heels off bed with pillows and air chair cushions.
air mattress.
Pressure redistributing chair cushion (i.e. Bariatric air chair cushion, Roho).
Follow up with multiskill operator Dr. Burris.
Follow up with orthopedic surgeon.
Follow up at wound care center if needed, call for an appointment.
Referrals:
Nestor Mistry MD [Active, Cardiology] - in two to four weeks
Mariana Callahan DO [Active, Pulmonary Medicine] - in six weeks
Phong Ta MD [Family Provider, Family Practice] - in less than 1 week
Mariana Cadet MD [Active, Neurology] - in two to four weeks
Ilya Amador DO [Active, Infectious Diseases] - in two to four weeks
Prescriptions:
New
lorazepam 0.5 mg Tablet
0.5 mg PO BID PRN (Reason: angitation or anxiety) Qty: 4 0RF
tizanidine 2 mg Tablet
2 mg PO Q6HPRN PRN (Reason: restlessness,agitation,anxiety) Qty: 10 0RF
nifedipine 30 mg Tablet Extended Release
30 mg PO DAILY 30 Days Qty: 30 0RF
oxycodone 5 mg Tablet
2.5 mg PO Q4HPRN PRN (Reason: severe pain) Qty: 4 0RF
Continued
carvedilol 25 mg Tablet
25 mg PO BID Qty: 0 0RF
spironolactone 50 mg Tablet
50 mg PO DAILY Qty: 0 0RF
losartan 50 mg Tablet
100 mg PO DAILY Qty: 0 0RF
acetaminophen [Tylenol Extra Strength] 500 mg Tablet
1,000 mg PO Q8 PRN (Reason: mild pain) Qty: 0 0RF
pantoprazole [Protonix] 40 mg tablet,delayed release (DR/EC)
40 mg PO DAILY Qty: 30 0RF
Changed
clonidine HCl 0.1 mg tablet
0.2 mg PO BID Qty: 0 0RF
Discharge Orders:
Discharge Patient (As Directed); Ordered 06/28/25
Ordered By: Luis Stokes
Discharge Date and Time
Discharge Date/Time: 06/28/25 12:37
Print Language: OCCITAN
--- NOTE | 2025-06-28 11:56 | PTCARENOTE ---
Report given to Nikki at [facility]. Pt to be picked up via ambulance transport around 1230.
[2025-06-28 12:20] VITALS: BP 117/68
--- NOTE | 2025-07-03 08:32 | OR.RPT ---
Operative Report
Operative Report
Patient Name: Patrice Mera
: 1975
Date of Operation: 05/07/2025
Preoperative Diagnosis: Necrotizing soft tissue infection of the right lower extremity x 2
Postoperative Diagnosis: Same
Procedure(s):
Incision and drainage of necrotizing soft tissue infection of the right lower extremity (medial calf: 5 x 7 cm x 2 cm)
Incision and drainage of necrotizing soft tissue infection of the right lower extremity (medial thigh: 3 x 3 x 2 cm)
Surgeon(s):
Dr. Chi
Plug Wirer(s):
Liborio Delgadillo MD
Anesthesia: General
Estimated Blood Loss: 11 cc for my portions of the procedure
Urine Output: None
Drains/Lines/Implants: None
Specimens:
Right lower extremity abscess for Gram stain and culture aerobic and anaerobic.
Indication for surgery:
This is a 50-year-old male with a history of polysubstance abuse admitted to the hospital and found to have septic arthritis with 2 areas of necrotizing soft tissue infection both proximal and distal to the knee. After discussion of risk benefits
and alternatives in coordination with orthopedic surgery the patient was consented for surgical exploration and drainage.
Operative Findings: Patient with necrotizing soft tissue infections of the right lower extremity. The medial proximal calf was significantly larger and measured roughly 5 x 7 x 2 cm. The overlying skin for much of this wound appeared somewhat
viable so was left intact. The pus emanating from this wound was cultured. There was some necrotic tissue that was debrided back with a combination of blunt and sharp dissection. There is a second wound on the distal medial thigh separate from
the previous 1 that was incised and opened. Similarly pus was encountered and evacuated. Necrotic tissue was debrided back with a combination of blunt and sharp dissection. These cavities did not appear to be communicating with each other. The
underlying tissue appeared to be healthy. After washing the wounds out and achieving hemostasis. The wounds were packed wet-to-dry with Dakin's quarter percent soaked Kerlix and covered with ABDs followed by Brody wrap. See Dr. Delgadillo's separate
note for additional details regarding the knee washout.
Details of the operation:
Patient was seen identified in the preoperative holding area and marked. The patient was taken the operating room where general anesthesia was administered. The right lower extremity was prepped and draped in normal sterile fashion. Nonsterile
tourniquet was applied. Timeout was performed again identifying the correct operative extremity. Antibiotics were held for cultures. For my part of the case, the area of fluctuance and erythema over the medial calf was incised. There was pus
emanating from the wound which was cultured there is also some necrotic tissue that was debrided back with a combination of blunt and sharp dissection. The wound was thoroughly irrigated and hemostasis was achieved. There did not appear to be any
connection to the underlying knee. This wound measured roughly 5 x 7 x 2 cm deep. I then turned my attention to the medial thigh where similar incision and drainage was performed again pus was evacuated and necrotic tissue debrided back until
healthy bleeding tissue was encountered. This wound was smaller and measured 3 x 3 x 2 cm. This wound was also thoroughly irrigated and hemostasis was achieved. Both wounds were then packed wet-to-dry with Dakin's quarter percent soaked Curlex
and covered with ABDs followed by an Brody wrap. This concluded the procedure. Dr. Delgadillo worked simultaneously on the knee, please see his note for operative details.
I was the attending physician and performed the procedure with assistance from Dr. Delgadillo who assisted with providing exposure, tension and counter tension throughout the case. I was present for all portions of the case.
Osei Chi MD
== END 2025-06-28 12:37 | DRG 853 ==
LOC: 3 WEST ACU 23:16
PROVIDERS: Hospitalist; Internal Medicine; Internal Medicine Infectious Disease; Nurse Practitioner Family; Nurse Practitioner Primary Care; Radiology Vascular & Interventional Radiology; Student in an Organized Health Care Education/Training Program; ADMITTING PHYSICIAN Hospitalist; ATTENDING PHYSICIAN Hospitalist; CONSULT PHYSICIAN Internal Medicine; CONSULT PHYSICIAN Internal Medicine Infectious Disease; CONSULT PHYSICIAN Internal Medicine Nephrology; CONSULT PHYSICIAN Orthopaedic Surgery; CONSULT PHYSICIAN Podiatrist; CONSULT PHYSICIAN Psychiatry & Neurology Neurology; CONSULT PHYSICIAN Surgery; EMERGENCY PHYSICIAN Emergency Medicine; FAMILY PHYSICIAN Family Medicine
PROC: 5A09357 Assistance with Respiratory Ventilation, Less than 24 Consecutive Hours, Continuous Positive Airway Pressure (ICD-10-PCS; 2025-04-30)
PROC: 5A1955Z Respiratory Ventilation, Greater than 96 Consecutive Hours (ICD-10-PCS; 2025-05-01)
PROC: 02HV33Z Insertion of Infusion Device into Superior Vena Cava, Percutaneous Approach (ICD-10-PCS; 2025-05-01)
PROC: 0BH17EZ Insertion of Endotracheal Airway into Trachea, Via Natural or Artificial Opening (ICD-10-PCS; 2025-05-01)
PROC: 03HY32Z Insertion of Monitoring Device into Upper Artery, Percutaneous Approach (ICD-10-PCS; 2025-05-01)
PROC: 5A1D90Z Performance of Urinary Filtration, Continuous, Greater than 18 hours Per Day (ICD-10-PCS; 2025-05-01)
PROC: 0S9C3ZZ Drainage of Right Knee Joint, Percutaneous Approach (ICD-10-PCS; 2025-05-06)
PROC: B24BZZ4 Ultrasonography of Heart with Aorta, Transesophageal (ICD-10-PCS; 2025-05-06)
PROC: 0JDN0ZZ Extraction of Right Lower Leg Subcutaneous Tissue and Fascia, Open Approach (ICD-10-PCS; 2025-05-07)
PROC: 0JDL0ZZ Extraction of Right Upper Leg Subcutaneous Tissue and Fascia, Open Approach (ICD-10-PCS; 2025-05-07)
PROC: 0SBC0ZZ Excision of Right Knee Joint, Open Approach (ICD-10-PCS; 2025-05-07)
PROC: 0Y6R0Z0 Detachment at Right 2nd Toe, Complete, Open Approach (ICD-10-PCS; 2025-05-08)
DX: A41.02 Sepsis due to Methicillin resistant Staphylococcus aureus (principal); I26.90 Septic pulmonary embolism without acute cor pulmonale; J15.212 Pneumonia due to Methicillin resistant Staphylococcus aureus; J96.01 Acute respiratory failure with hypoxia; R65.21 Severe sepsis with septic shock; M72.6 Necrotizing fasciitis; N17.0 Acute kidney failure with tubular necrosis; I69.351 Hemiplegia and hemiparesis following cerebral infarction affecting right dominant side; E87.20 Acidosis, unspecified; G91.9 Hydrocephalus, unspecified; I96 Gangrene, not elsewhere classified; I76 Septic arterial embolism; L02.415 Cutaneous abscess of right lower limb; M00.061 Staphylococcal arthritis, right knee; M86.171 Other acute osteomyelitis, right ankle and foot; E87.0 Hyperosmolality and hypernatremia; F11.23 Opioid dependence with withdrawal; L03.031 Cellulitis of right toe; S90.562A Insect bite (nonvenomous), left ankle, initial encounter; W57.XXXA Bitten or stung by nonvenomous insect and other nonvenomous arthropods, initial encounter; Z66 Do not resuscitate; R51.9 Headache, unspecified; I1A.0 Resistant hypertension; I10 Essential (primary) hypertension; D64.9 Anemia, unspecified; D69.59 Other secondary thrombocytopenia; I16.0 Hypertensive urgency; M25.461 Effusion, right knee; E66.01 Morbid (severe) obesity due to excess calories; Z68.36 Body mass index [BMI] 36.0-36.9, adult; I87.2 Venous insufficiency (chronic) (peripheral); B95.62 Methicillin resistant Staphylococcus aureus infection as the cause of diseases classified elsewhere; E55.9 Vitamin D deficiency, unspecified; F90.9 Attention-deficit hyperactivity disorder, unspecified type; R31.29 Other microscopic hematuria; K76.0 Fatty (change of) liver, not elsewhere classified; R62.7 Adult failure to thrive; G89.29 Other chronic pain; F17.200 Nicotine dependence, unspecified, uncomplicated; Z11.52 Encounter for screening for COVID-19; Z98.2 Presence of cerebrospinal fluid drainage device; Z88.1 Allergy status to other antibiotic agents
CPT/HCPCS: 36556; 36600; 70450; 71045; 71250; 71275; 73660; 73701; 74018; 76770; 76937; 80048; 80053; 80202; 80306; 80307; 81003; 81015; 82248; 82306; 82330; 82533; 82550; 82570; 82805; 82962; 83036; 83605; 83615; 83735; 83880; 84100; 84155; 84156; 84300; 84439; 84443; 84484; 85025; 85027; 85610; 85730; 86618; 87015; 87040; 87070; 87075; 87086; 87147; 87154; 87186; 87205; 87207; 87502; 87811; 88305; 88311; 89051; 89060; 92526; 92610; 93005; 93306; 93312; 93320; 93325; 93922; 93970; 93971; 93975; 94002; 94003; 94640; 94660; 96361; 96374; 97110; 97163; 97167; 97530; 97535; 99291; C1729; C1752; J0712; J0878; Q9967